=== PATIENT | female | born 1950 | race Caucasian/White ===

== ENCOUNTER → 2016-11-21 | Outpatient (CLI) | payer MEDICARE, MEDICAID ==
[2016-09-05 17:58] VITALS: BP 132/60
[~2016-11-21] MED LIST: ALBU2.5V5 NEB; AMLO10TA2 PO; AMOX1TAB10 PO; ASPI81TA2 PO; ATOR10TA60 PO; CARV6.252 PO; CEFP100T PO; CITA20TA9 PO; CLOP75TA27 PO; DARB60DI SQ; ERGO500012 PO; FAMO20TA5 PO; FERR324T14 PO; FERR325T72 PO; FLUT1DIS3 INH; GUAI600T38 PO; HUM100VI5 SQ; HYDR-2868 PO; HYDR-2869 PO; HYDR25CA75 PO; INSU100I13 SQ; INSU100I17 SQ; INSU100I27 SQ; ISOS30TA4 PO; LISI40TA PO; NYST60PO TP; OXYC1TAB7 PO; PRAS10TA4 PO; PRED20TA PO; SODI650T PO; SPIR25TA PO
--- NOTE | 2016-11-21 15:25 | CARD ---
APPROVED REPORT EXAM: Two-dimensional and M-mode echocardiogram with Doppler and color Doppler. Other Information Quality : Good INDICATION Cardiac Disease: CAD Cardiomyopathy 2D DIMENSIONS Left Atrium(2D)3.6 (1.6-4.0cm)IVSd1.0 (0.7-1.1cm) Aortic Root(2D)2.9 (2.0-3.7cm)LVDd5.9 (3.9-5.9cm) LVOT Diameter2.0 (1.8-2.4cm)PWd1.7 (0.7-1.1cm) LVDs5.1 (2.5-4.0cm)FS (%) 13.8 % SV51.1 mlLVEF(%)25.0 (>50%) Aortic Valve AoV Peak Dylan.190.0cm/sAoV VTI43.0cm AO Peak GR.14.4mmHgLVOT Peak Dylan.86.5cm/s AO Mean GR.8mmHgAVA (VMAX)1.46cm2 ERIKA (VTI)1.72nu4GP P 1/2 [id number] Mitral Valve MV E Wfvfrtlf43.8cm/sMV E Peak Gr.7mmHg MV DECEL [id number] A Iwjsheys024.6cm/s MV E Mean Gr.2mmHgE/A Ratio0.7 Tricuspid Valve TR P. Hnhtmmbg864jb/sRAP MKPGGNZZ7brWu TR Peak Gr.71rcIgTTJD07usWe Pulmonary Vein S1 Rzdzuwhs75.2cm/sD2 Ljoqfcwj46.7cm/s PVa exuavpkl108rqds LEFT VENTRICLE The Left Ventricle is borderline dilated. There is mild to moderate asymmetric posterior left ventric ular hypertrophy. Left ventricle systolic function is moderate to severely impaired. The Ejection Fra ction is 25%. There is global hypokinesis of the left ventricle. Tissue Doppler imaging reveals moder ate left ventricular diastolic dysfunction. RIGHT VENTRICLE The right ventricle is normal size. The right ventricular systolic function is normal. ATRIA The left atrium size is normal. The right atrium size is normal. The interatrial septum is intact wit h no evidence for an atrial septal defect or patent foramen ovale as noted on 2-D or Doppler imaging. AORTIC VALVE The aortic valve is calcified but opens well. Doppler and Color Flow revealed mild aortic regurgitati on. There is no significant aortic valvular stenosis. MITRAL VALVE The mitral valve is thickened but opens well. There is no evidence of mitral valve prolapse. There is no mitral valve stenosis. Doppler and Color-flow revealed mild to moderate mitral regurgitation. TRICUSPID VALVE The tricuspid valve is normal in structure and function. Doppler and Color Flow revealed mild tricusp id regurgitation. There is moderate to severe pulmonary hypertension. The PA pressure was estimated a t 60 mmHg. There is no tricuspid valve stenosis. PULMONIC VALVE The pulmonary valve is normal in structure and function. Doppler and Color Flow revealed mild pulmoni c valvular regurgitation. There is no pulmonic valvular stenosis. GREAT VESSELS The aortic root is normal in size. The ascending aorta is normal in size. The IVC is normal in size a nd collapses <50% with inspiration. PERICARDIAL EFFUSION There is no evidence of significant pericardial effusion. Critical Notification Critical Value: No <Conclusion> Left ventricle systolic function is moderate to severely impaired. The Ejection Fraction is 25%. Mild aortic regurgitation. Mild to moderate mitral regurgitation. Mild tricuspid regurgitation. There is moderate to severe pulmonary hypertension. The PA pressure was estimated at 60 mmHg. There is no evidence of significant pericardial effusion.
== END | disposition home or self-care (01) ==
LOC: ECHO 08:32
PROVIDERS: ATTEND Internal Medicine Cardiovascular Disease
DX: I25.5 Ischemic cardiomyopathy (principal); I25.10 Atherosclerotic heart disease of native coronary artery without angina pectoris; I51.7 Cardiomegaly; I35.1 Nonrheumatic aortic (valve) insufficiency; I34.0 Nonrheumatic mitral (valve) insufficiency; I27.2 Other secondary pulmonary hypertension; I37.1 Nonrheumatic pulmonary valve insufficiency
CPT/HCPCS: 93306

== ENCOUNTER 2016-12-28 06:32 | Inpatient (IN) | payer BC, MEDICAID ==
[~2016-12-28] VITALS: Ht 165.1 cm; Wt 102.6 kg
[2016-12-28] MEDS ORDERED: LIDOCAINE 1% 1 ML SYRINGE. ID PRN (07:00)
[2016-12-28] MEDS ORDERED: ONDANSETRON PF 4 MG/2 ML VIAL. IV PRN ×2 (07:00→10:45)
[2016-12-28] MEDS ORDERED: HYDROMORPHONE 2 MG/ML VIAL. IV PRN (07:00)
[2016-12-28] MEDS ORDERED: MORPHINE SULFATE 2 MG/ML DISP.SYRIN. IV PRN (07:00)
[2016-12-28] MEDS ORDERED: FENTANYL PF 100 MCG/2 ML VIAL. IV PRN ×2 (07:00)
[2016-12-28] MEDS ORDERED: IV RINGERS,LACTATED 1000ML 1,000 ML IV SCH (07:00)
[2016-12-28] MEDS ORDERED: PROCHLORPERAZINE 10 MG/2 ML VIAL. IV PRN (07:00)
[2016-12-28 07:05] LABS: HEMATOCRIT 34.1 % (36.0-47.0); HEMOGLOBIN 11.1 g/dL (12.0-15.5); RED BLOOD COUNT 3.66 x10^6/uL (3.50-5.40); RED CELL DISTRIBUTION WIDTH 13.9 % (11.5-14.5); WHITE BLOOD COUNT 7.3 x10^3/uL (4.0-11.0)
[2016-12-28 07:08] LABS: CALCIUM 8.2 mg/dL (8.5-10.1); CREATININE 3.4 mg/dL (0.6-1.0); GFR 13.6; POTASSIUM 4.6 mmol/L (3.5-5.1)
[2016-12-28 07:11] VITALS: BP 128/79
[2016-12-28] MEDS ORDERED: LIDOCAINE 2%/EPI 1:100,000 20 ML VIAL. ONE (07:12)
[2016-12-28] MEDS ORDERED: PATI8.4P PO (07:20)
[2016-12-28] MEDS ORDERED: INSU100V8 SQ (07:20)
[2016-12-28] MEDS ORDERED: ASPI81TA2 PO (07:20)
[2016-12-28 07:24] LABS: PROTHROMBIN TIME PATIENT 12.5 SEC (11.7-14.0)
--- NOTE | 2016-12-28 07:27 | EKG ---
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
[2016-12-28] MEDS ORDERED: BACITRACIN 50,000 UNIT in IV NORMAL SALINE 250ML 250 ML IRR ONE (07:30)
[2016-12-28] MEDS ORDERED: CEFAZOLIN 2GM PREMIX 50 ML IV ONE ×2 (07:30→21:30)
[2016-12-28] MEDS ORDERED: LIDOCAINE 2% 100 MG/5 ML DISP.SYRIN. ONE (07:43)
[2016-12-28] MEDS ORDERED: PROPOFOL 80 ML IV ONE (07:43)
[2016-12-28] MEDS ORDERED: MIDAZOLAM HCL/PF 2 MG/2 ML VIAL. ONE (07:44)
[2016-12-28] MEDS ORDERED: KETAMINE HCL 500 MG/10 ML VIAL. ONE (07:44)
[2016-12-28] MEDS ORDERED: EPHEDRINE PF IN SALINE 50 MG/5 ML DISP.SYRIN. IV ONE (07:45)
[2016-12-28] MEDS ORDERED: PHENYLEPHRINE in 0.9% NACL PF 1 MG/10 ML DISP.SYRIN. IV ONE (07:45)
--- NOTE | 2016-12-28 08:10 | PDOC ---
MODERATE SEDATION ASSESSMENT RISKS/ALTERNATIVES Risks/Alternatives Risks and alternatives of this type of sedation and procedure discussed with: RISK/ALTERNATIVES: Patient H & P ON CHART H & P H & P on chart and reviewed for co-morbid conditions and appropriate labs. H&P ON CHART: Yes STATUS PREG STATUS ASSESSED: N/A MEDS/ALLERGIES REVIEWED Meds/Allergies Reviewed Medications and Allergies including time and route of recently administered narcotics and sedatives. MEDS/ALLERGIES REVIEWED: Yes ASA RATING ASA RATING: III AIRWAY ASSESSMENT Airway Assessment Airway patency, oral function limitations, presence of caps, crowns, dentures, partials, and ability to extend neck assessed. AIRWAY ASSESSMENT: Yes MALLAMPATI SCORE MALLAMPATI SCORE: III PRE-SEDATION ASSESSMENT PRE-SEDATION ASSESSMENT: Yes ALURA RIVERA MD Dec 28, 2016 08:10
[2016-12-28] MEDS ORDERED: LIDOCAINE 2%/EPI 1:100,000 20 ML VIAL. IJ ONE (08:45)
[2016-12-28 09:20] VITALS: BP 122/47
--- NOTE | 2016-12-28 10:17 | CARD ---
APPROVED REPORT EXAM Implantation automatic implantable cardioverter-defibrillator 4.7 mins Fluoro 47.57mGy [id number] HISTORY The Patient is a 66 year-old female with a history of ischemic cardiomyopathy INDICATIONS Primary prevention of sudden in a patient with ischemic cardiomyopathy and an EF < 35%. 30 mL of 2% lidocaine was infiltrated into the skin and subcutaneous tissues for local anesthesia. A n incision was made over the left infraclavicular fossa and using blunt dissection and cautery a pock et was created. Venous access was obtained in the left subclavian vein and 8 and 6 Nepalese sheaths we re inserted. Subsequently, a Biotronik bipolar active fixation right ventricular lead model Protego SD 65/18, SN [id number] was advanced under fluoroscopic guidance and the tip was positioned in the right ventricular apex. Following this, a Biotronik bipolar active fixation right atrial lead model Solia S 53, SN [id number] was placed in the right atrial appendage under fluoroscopy guidance. The leads were secured in to place and were attached to a Biotronik dual-chamber permanent pacemaker generator model Itrevia 7D R-T DF4, SN [id number]. This was placed in the pocket that was subsequently closed in 3 layers. Hemos tasis was secured. At the end of procedure, the right ventricular lead showed sensing amplitude of 20mV, impedance of 54 5ohms and a threshold of 0.5volts. The right atrial lead showed a sensing amplitude of 2.5 millivolt s, impedance of 413 ohms and a threshold of 0.8 volts. DFT was performed and the patient was successfully defibrillated with a 15 J shock, with one drop out and a shock impedence of 36 ohms. Patient tolerated the procedure well. There were no immediate complications. Sedation was performed by anesthesia service. CONCLUSION Successful insertion of a dual chamber ICD for primary prevention of sudden cardiac in a patien t with ischemic CMP and EF of < 35%.
[2016-12-28] MEDS ORDERED: NO ANTICOAGULANT THERAPY. MC PRN (10:45)
[2016-12-28 11:43] VITALS: BP 140/65
--- NOTE | 2016-12-28 11:54 | RAD ---
Portable chest, 12/28/2016: History: Post pacemaker insertion Comparison is made to a study from 09/01/2016. A left-sided transvenous pacemaker has been inserted with one lead extending into the right ventricle. The tip of the other lead is projected over the superior aspect of the right atrium. The heart size and pulmonary vascularity are within normal limits. No pulmonary infiltrates are seen. There is no evidence of pleural fluid or pneumothorax. IMPRESSION: 1. Interval insertion of a left-sided transvenous pacemaker. 2. No acute cardiopulmonary abnormality is detected.
[2016-12-28] MEDS ORDERED: LISI40TA PO (14:07)
[2016-12-28] MEDS ORDERED: SODI325T PO (14:07)
[2016-12-28 14:45] VITALS: BP 157/73
[2016-12-28] MEDS: SPIRONOLACTONE 25 MG TABLET PO SCH (15:29)
[2016-12-28] MEDS: CITALOPRAM 20 MG TABLET. PO SCH (15:29)
[2016-12-28] MEDS: LISINOPRIL 40 MG TABLET. PO SCH (15:30)
[2016-12-28] MEDS: ASPIRIN CHEWABLE 81 MG TABLET. PO SCH (15:30)
[2016-12-28] MEDS: PRASUGREL 10 MG TABLET. PO SCH (15:30)
[2016-12-28] MEDS: ISOSORBIDE MONONITRATE ER 30 MG TAB.ER.24H PO SCH (15:30)
[2016-12-28] MEDS ORDERED: ALBUTEROL SULFATE 2.5 MG/3 ML NEBU. NEB SCH (16:00)
[2016-12-28] MEDS: CARVEDILOL 6.25 MG TABLET. PO SCH (16:42)
[2016-12-28] MEDS: HYDRALAZINE 25 MG TABLET PO SCH ×2 (16:42→20:53)
[2016-12-28] MEDS: INSULIN ASPART 300 UNITS/3 ML INSULN.PEN SQ SCH (17:00)
[2016-12-28] MEDS ORDERED: ALBUTEROL SULFATE 2.5 MG/3 ML NEBU. NEB PRN (19:00)
[2016-12-28 19:35] VITALS: BP 157/50
[2016-12-28] MEDS: OXYCODONE/APAP 5/325 TABLET. PO PRN (20:50)
[2016-12-28] MEDS ORDERED: INSULIN DETEMIR 300 UNITS/3 ML INSULN.PEN. SQ SCH (21:00)
[2016-12-28] MEDS ORDERED: ATORVASTATIN CALCIUM 10 MG TABLET. PO SCH (21:00)
[2016-12-28] MEDS ORDERED: FAMOTIDINE 20 MG TABLET. PO SCH (21:00)
[2016-12-28 23:40] VITALS: BP 117/57
[2016-12-29 03:36] VITALS: BP 148/58
[2016-12-29] MEDS: OXYCODONE/APAP 5/325 TABLET. PO PRN (05:58)
[2016-12-29 07:00] VITALS: BP 136/63
[2016-12-29] MEDS: INSULIN ASPART 300 UNITS/3 ML INSULN.PEN SQ SCH (08:00)
--- NOTE | 2016-12-29 08:25 | RAD ---
Exam: AP and lateral chest radiograph History: 1 day post pacemaker placement. Comparison: 12/28/2016. Findings: Cardiomediastinal silhouette is within normal limits for size. Bilateral lung jaquez are free of focal infiltrate. No pleural effusion is seen. Dual-lead AICD by left subclavian approach is without significant change. Impression: No acute cardiopulmonary process.
[2016-12-29] MEDS: HYDRALAZINE 25 MG TABLET PO SCH (09:24)
[2016-12-29] MEDS: LISINOPRIL 40 MG TABLET. PO SCH (09:24)
[2016-12-29] MEDS: PRASUGREL 10 MG TABLET. PO SCH (09:25)
[2016-12-29] MEDS: CARVEDILOL 6.25 MG TABLET. PO SCH (09:25)
[2016-12-29] MEDS: ASPIRIN CHEWABLE 81 MG TABLET. PO SCH (09:25)
[2016-12-29] MEDS: CITALOPRAM 20 MG TABLET. PO SCH (09:26)
[2016-12-29] MEDS: SPIRONOLACTONE 25 MG TABLET PO SCH (09:26)
[2016-12-29 09:57] VITALS: BP 136/63
[2016-12-29] MEDS: ISOSORBIDE MONONITRATE ER 30 MG TAB.ER.24H PO SCH (09:57)
[2016-12-29] MEDS ORDERED: LISI40TA PO (10:10)
--- NOTE | 2016-12-29 10:22 | PDOC3 ---
Discharge Summary Visit Information Date of Admission: Dec 28, 2016 Date of Discharge: Dec 29, 2016 Admitting Diagnosis Comment: ischemic cardiomyopathy CAD hypertension hyperlipidemia DM, II PVD with previous left BKA tobacco abuse Final Diagnosis Problems Medical Problems: (1) Ischemic cardiomyopathy Status: Acute CAD hypertension hyperlipidemia DM, II PVD with previous left BKA tobacco abuse Brief Hospital Course Allergies Allergies Coded Allergies Type Severity Reaction Last Updated Verified adhesive Allergy Intermediate ARM SWELLING 12/29/16 Yes diphenhydramine Allergy Intermediate swelling 08/26/15 Yes Vital Signs Vital Signs Date Time Temp Pulse Resp B/P Pulse Ox O2 Delivery O2 Flow Rate FiO2 12/29/16 09:57 69 136/63 12/29/16 08:42 Nasal Cannula 2.0 12/29/16 07:37 94 12/29/16 07:00 97.7 20 97.7 Lab Results Laboratory Tests Test 12/28/16 06:57 12/28/16 10:21 12/28/16 16:24 12/28/16 20:38 White Blood Count 7.3x10^3/uL (4.0-11.0) Red Blood Count 3.66x10^6/uL (3.50-5.40) Hemoglobin 11.1g/dL (12.0-15.5) Hematocrit 34.1% (36.0-47.0) Mean Corpuscular Volume 93fL (79-100) Mean Corpuscular Hemoglobin 30pg (25-35) Mean Corpuscular Hemoglobin Concent 33g/dL (31-37) Red Cell Distribution Width 13.9% (11.5-14.5) Platelet Count 181x10^3/uL (140-400) Prothrombin Time 12.5SEC (11.7-14.0) Prothromb Time International Ratio 1.0 (0.8-1.1) Activated Partial Thromboplast Time 39SEC (24-38) Sodium Level 139mmol/L (136-145) Potassium Level 4.6mmol/L (3.5-5.1) Chloride Level 106mmol/L (98-107) Carbon Dioxide Level 21mmol/L (21-32) Anion Gap 12 (6-14) Blood Urea Nitrogen 85mg/dL (7-20) Creatinine 3.4mg/dL (0.6-1.0) Estimated GFR (Cockcroft-Gault) 13.6 Glucose Level 132mg/dL (70-99) Calcium Level 8.2mg/dL (8.5-10.1) Glucose (Fingerstick) 168mg/dL (70-99) 106mg/dL (70-99) 153mg/dL (70-99) Test 12/29/16 07:29 Glucose (Fingerstick) 89mg/dL (70-99) Laboratory Tests Test 12/28/16 10:21 12/28/16 16:24 12/28/16 20:38 12/29/16 07:29 Glucose (Fingerstick) 168mg/dL (70-99) 106mg/dL (70-99) 153mg/dL (70-99) 89mg/dL (70-99) Brief Hospital Course Ms. Hercules is a 66 old female with previous PCI to the ramus in August 2016. LVEF by echo at that time 25%. Repeat echo 10/2015 demonstrated no improvement in LVEF and ICD implantation for prevention of SCD advised. Patient agreeable and underwent placement of Biotronik dual chamber ICD into the left pectoral region yesterday. Monitored overnight without significant dysrhythmias on telemetry. No evidence of pneumothorax on CXR this a.m. Site with minimal ecchymosis and no erythema or wound separation. Precautions discussed with patient. ICD interrogation without significant findings this a.m. Famotidine and lisinopril decreased to once daily due to Cr CL of < 20 mL/ min. Discharge Information Condition at Discharge: Stable Follow Up: Weeks (one week for wound check; 3 months with ICD interrogation ) Disposition/Orders: D/C to Home Scheduled Albuterol Sulfate (Albuterol Sulfate Neb Soln) 2.5 MG [facility] RTQID Aspirin (Aspirin) 1 TAB PO DAILY (Reported) Atorvastatin Calcium (Atorvastatin Calcium) 10 MG PO QHS Carvedilol (Carvedilol) 6.25 MG PO BIDWMEALS Citalopram Hydrobromide (Celexa) 20 MG PO DAILY (Reported) Ergocalciferol (Vitamin D2) (Vitamin D2) 50,000 UNIT PO WEEKLY (Reported) Famotidine (Famotidine) 20 MG PO QHS Hydralazine Hcl (Hydralazine Hcl) 25 MG PO TID Insulin Aspart (Novolog Flexpen) 5 UNIT SQ TIDWMEALS (Reported) Insulin Glargine,Hum.rec.anlog (Lantus) 30 UNIT SQ HS (Reported) Isosorbide Mononitrate (Isosorbide Mononitrate Er) 60 MG PO DAILY Lisinopril (Lisinopril) 1 TAB PO BID (Reported) Patiromer Calcium Sorbitex (Veltassa) 8.4 GM PO DAILY (Reported) Prasugrel Hcl (Effient) 10 MG PO DAILYWBKFT Sodium Bicarbonate (Sodium Bicarbonate) 10 GR PO BID (Reported) Spironolactone (Aldactone) 25 MG PO DAILY Patient Instructions Patient Instructions Must know & what to expect after device implant: 1. Your surgical dressing should be removed prior to discharge from the hospital, but allow the steri- strips to fall off naturally. 2. Activity restrictions: DO NOT raise arm above shoulder level, lift anything heavier than a gallon of milk, and no push or pull motions such as vacuuming/lawn mowing, no swinging motions (golf), etc for 4 weeks. 3. It is OK to use a cell phone or other electronic devices just be sure you do not store it in a breast pocket on the side where the device was placed. 4. Device will be interrogated prior to your discharge from the hospital and then every 3 months for defibrillators and every 6 months for pacemakers. You may be asked to have your device checked remotely from home as well, but this will depend on your particular physicians preference. 5. You may remove the arm immobilizer the day after device placement. Wear the arm immobilizer/splint at night (during sleep times) for 2 week to prevent unintended arm movement that can cause lead dislodgement. 6. Do not drive for one week as the task of driving may lead to unintended arm motion that may cause lead dislodgement. The seatbelt will also rub against the incision site & cause irritation. 7. It is our recommendation that you utilize Tylenol at home for pain control. You need to call our office if you are having uncontrollable pain at the incision site. 8. Keep your incision clean and dry. It is OK to shower. DO NOT submerge in bath, pool, or hot tub, until cleared by your doctor, as this could lead to increase risk of infection.. It is OK to use regular soap just do not scrub the incision site. Water spray from shower should not directly hit the incision. Be sure to blot dry not rub. 9. Inspect your incision daily. If you notice any increased redness, swelling , or drainage, or if you start running a fever, call the office immediately. The number is [phone]. 10. For women, if you need to protect against irritation from the bra straps, you can place a piece of gauze over the incision site for cushion. Please be sure to tape it loosely to allow air to the site & remove the gauze when you remove the bra. 11. Be sure to carry your device identification information card in your wallet/purse at all times. 12. It is OK to go through security at the airport with your device, but be sure to let the TSA know prior to proceeding as the security settings change depending on varying factors. Please do whatever is requested by security at that time. 13. Some of the newer devices may be MRI compatible but, currently, the use of these devices is not widespread, so you likely will not be able to have an MRI. Please clarify this with your physician. Special instructions for defibrillator patients: If your device recognizes a rhythm that requires treatment with a shock, you will most likely feel the shock. This is usually not a subtle feeling and it is uncomfortable. Please follow these steps if you receive a shock: Call the office if you receive one shock. Go to the emergency room if you receive two consecutive shocks- please have someone drive you & call 911 if nobody is available- DO NOT drive yourself. Call 911 if you receive more than 2 consecutive shocks. If at any time, you feel lightheaded or dizzy/faint, stop what you are doing & lie down immediately. If you are driving, get to the side of the road quickly, turn your car off & call 911 on your cell phone. DO NOT continue to drive as this may cause an accident that seriously injures yourself &/or others. Call the office at [phone] for any questions or concerns. CONRADO THAKUR APRN Dec 29, 2016 10:22
== END 2016-12-29 13:05 | disposition home or self-care (01) | DRG 227 ==
LOC: SURG 06:32 → 2 SOUTH 10:28
PROVIDERS: ADMIT Internal Medicine Cardiovascular Disease; ATTEND Internal Medicine Cardiovascular Disease
PROC: 0JH608Z Insertion of Defibrillator Generator into Chest Subcutaneous Tissue and Fascia, Open Approach (ICD-10-PCS; 2016-12-28)
PROC: 02H63KZ Insertion of Defibrillator Lead into Right Atrium, Percutaneous Approach (ICD-10-PCS; 2016-12-28)
PROC: 02HK3KZ Insertion of Defibrillator Lead into Right Ventricle, Percutaneous Approach (ICD-10-PCS; principal; 2016-12-28 08:00)
DX: I25.5 Ischemic cardiomyopathy (principal); E78.5 Hyperlipidemia, unspecified; I10 Essential (primary) hypertension; E11.51 Type 2 diabetes mellitus with diabetic peripheral angiopathy without gangrene; I25.10 Atherosclerotic heart disease of native coronary artery without angina pectoris; Z72.0 Tobacco use; Z89.512 Acquired absence of left leg below knee; Z98.61 Coronary angioplasty status; Z88.8 Allergy status to other drugs, medicaments and biological substances
CPT/HCPCS: 33249; 36415; 71010; 71020; 80048; 82947; 85027; 85610; 85730; 93005; 93641; 94640; 94760; C1892; C1895; C1898; J0690; J1815; J2250; J2370; J2704; J3490; J7050; J7030

== ENCOUNTER 2017-08-09 04:38 | Emergency (ER) | payer BC, MEDICAID ==
[~2017-08-09] VITALS: Ht 165.1 cm; Wt 104.3 kg
[~2017-08-09 04:38] MED LIST changes: +ASPI-630 PO; -ASPI81TA2 PO; +AZIT250T6 PO; -CLOP75TA27 PO; +CLOP75TA57 PO; -ERGO500012 PO; +ERGO500027 PO; +FURO40TA4 PO; -GUAI600T38 PO; +GUAI600T47 PO; +INSU100V8 SQ; +LEVO100T5 PO; +LEVO50TA PO; +NYST15PO9 TP; +PATI8.4P PO; -PRAS10TA4 PO; +PRAS10TA9 PO; +SODI325T PO
[2017-08-09] MEDS ORDERED: IPRATRPIUM/ALBUTEROL 0.5/2.5MG 3 ML NEBU. ONE (04:52)
[2017-08-09] MEDS ORDERED: IPRATRPIUM/ALBUTEROL 0.5/2.5MG 3 ML NEBU. NEB ONE (05:00)
[2017-08-09 05:14] LABS: BASO # 0.1 x10^3/uL (0.0-0.2); BASO % 1 % (0-3); EOS % 3 % (0-3); HEMATOCRIT 32.7 % (36.0-47.0); HEMOGLOBIN 10.6 g/dL (12.0-15.5); LYMPH # 1.6 x10^3/uL (1.0-4.8); LYMPH % 17 % (24-48); MEAN CORPUSCULAR HEMOGLOBIN 30 pg (25-35); MEAN CORPUSCULAR HGB CONC 32 g/dL (31-37); MEAN CORPUSCULAR VOLUME 94 fL (79-100); MONO % 6 % (0-9); NEUT % 73 % (31-73); PLATELET COUNT 198 x10^3/uL (140-400); RED BLOOD COUNT 3.47 x10^6/uL (3.50-5.40); RED CELL DISTRIBUTION WIDTH 14.5 % (11.5-14.5)
[2017-08-09] MEDS ORDERED: methylPREDNISolone SOD SUCC PF 125 MG/2 ML VIAL. IV ONE (05:15)
[2017-08-09] MEDS ORDERED: IV NORMAL SALINE 1000ML BAG 1,000 ML IV SCH (05:15)
[2017-08-09] MEDS ORDERED: AZIT250T6 PO (05:21)
[2017-08-09] MEDS ORDERED: PRED50TA PO (05:21)
[2017-08-09 05:25] LABS: CALCIUM 8.3 mg/dL (8.5-10.1); CREATININE 3.4 mg/dL (0.6-1.0); GFR 13.6; POTASSIUM 4.8 mmol/L (3.5-5.1)
--- NOTE | 2017-08-09 05:26 | PHYS DOC ---
Past Medical History Past Medical History: CAD, COPD, Diabetes-Type II, Hypertension, TX, Other Additional Past Medical Histor: KIDNEY ISSUES Past Surgical History: Cholecystectomy, , Pacemaker, Other Additional Past Surgical Histo: left BKA, R toe amputation, fempop bypass bilateral legs; defibrillator Alcohol Use: None Drug Use: None Adult General Chief Complaint Chief Complaint: SHORTNESS OF BREATH HPI HPI 67-year-old female with a past medical history of cardiac problems for which a defibrillator was placed as well as a prior TX and COPD. Patient now presents to the emergency department complaining of shortness of breath and wheezing. She is not still a smoker but she was for many years. Patient uses 2 L home O2 is her baseline. Over the last day she's had increasing shortness of breath and wheezing. Patient does have intermittently mildly productive cough but states that it is her typical smoker's cough. No fevers chills sweats or shaking chills. Patient denies orthopnea or right lower extremity edema. She has left lower extremity amputation with a prosthesis. Review of Systems Review of Systems Constitutional: Denies fever or chills [] Eyes: Denies change in visual acuity, redness, or eye pain [] HENT: Denies nasal congestion or sore throat [] Respiratory: Denies cough or shortness of breath [] Cardiovascular: No additional information not addressed in HPI [] GI: Denies abdominal pain, nausea, vomiting, bloody stools or diarrhea [] : Denies dysuria or hematuria [] Musculoskeletal: Denies back pain or joint pain [] Integument: Denies rash or skin lesions [] Neurologic: Denies headache, focal weakness or sensory changes [] Endocrine: Denies polyuria or polydipsia [] All other systems were reviewed and found to be within normal limits, except as documented in this note. Current Medications Current Medications Current Medications Medications (Trade) Dose Ordered Sig/Slick Start Time Stop Time Status Last Admin Dose Admin Albuterol/ Ipratropium (Duoneb) 3 ml 1X ONCE 08/09/17 05:00 08/09/17 05:16 DC 08/09/17 05:08 3 ML Methylprednisolone Sodium Succinate (SOLU-Medrol 125MG VIAL) 125 mg 1X ONCE 08/09/17 05:15 08/09/17 05:16 DC 11/16/17 05:26 125 MG Sodium Chloride 1,000 ml @ 999 mls/hr Q1H1M 08/09/17 05:15 08/10/17 05:14 08/09/17 05:27 999 MLS/HR Allergies Allergies Allergies Coded Allergies Type Severity Reaction Last Updated Verified adhesive Allergy Intermediate ARM SWELLING 12/29/16 Yes diphenhydramine Allergy Intermediate swelling 08/26/15 Yes Physical Exam Physical Exam Obese 67-year-old female alert communicative cooperative and appropriate with mild tachypnea. Bilateral wheezing with no asymmetry. Pulse ox 94% on baseline 2 L home O2. Mucous membranes mildly dry. Regular rate and rhythm without tachycardia. Benign abdomen normal extremities with no edema. Left lower extremity with prosthesis in place Constitutional: Well developed, well nourished, no acute distress, non-toxic appearance. [] HENT: Normocephalic, atraumatic, bilateral external ears normal, oropharynx moist, no oral exudates, nose normal. [] Eyes: PERRLA, EOMI, conjunctiva normal, no discharge. [] Neck: Normal range of motion, no tenderness, supple, no stridor. [] Cardiovascular:Heart rate regular rhythm, no murmur [] Lungs & Thorax: As above Abdomen: Bowel sounds normal, soft, no tenderness, no masses, no pulsatile masses. [] Skin: Warm, dry, no erythema, no rash. [] Back: No tenderness, no CVA tenderness. [] Extremities: No tenderness, no cyanosis, no clubbing, ROM intact, no edema. [] Neurologic: Alert and oriented X 3, normal motor function, normal sensory function, no focal deficits noted. [] Psychologic: Affect normal, judgement normal, mood normal. [] Current Patient Data Vital Signs Vital Signs Date Time Temp Pulse Resp B/P (MAP) Pulse Ox O2 Delivery O2 Flow Rate FiO2 08/09/17 05:10 93 Simple Mask 7.0 08/09/17 04:54 97.5 93 24 219/81 (127) 97.5 Lab Values Laboratory Tests Test 08/09/17 05:00 White Blood Count 9.0 x10^3/uL (4.0-11.0) Red Blood Count 3.47 x10^6/uL (3.50-5.40) L Hemoglobin 10.6 g/dL (12.0-15.5) L Hematocrit 32.7 % (36.0-47.0) L Mean Corpuscular Volume 94 fL (79-100) Mean Corpuscular Hemoglobin 30 pg (25-35) Mean Corpuscular Hemoglobin Concent 32 g/dL (31-37) Red Cell Distribution Width 14.5 % (11.5-14.5) Platelet Count 198 x10^3/uL (140-400) Neutrophils (%) (Auto) 73 % (31-73) Lymphocytes (%) (Auto) 17 % (24-48) L Monocytes (%) (Auto) 6 % (0-9) Eosinophils (%) (Auto) 3 % (0-3) Basophils (%) (Auto) 1 % (0-3) Neutrophils # (Auto) 6.5 x10^3uL (1.8-7.7) Lymphocytes # (Auto) 1.6 x10^3/uL (1.0-4.8) Monocytes # (Auto) 0.5 x10^3/uL (0.0-1.1) Eosinophils # (Auto) 0.3 x10^3/uL (0.0-0.7) Basophils # (Auto) 0.1 x10^3/uL (0.0-0.2) Sodium Level 138 mmol/L (136-145) Potassium Level 4.8 mmol/L (3.5-5.1) Chloride Level 104 mmol/L (98-107) Carbon Dioxide Level 25 mmol/L (21-32) Anion Gap 9 (6-14) Blood Urea Nitrogen 57 mg/dL (7-20) H Creatinine 3.4 mg/dL (0.6-1.0) H Estimated GFR (Cockcroft-Gault) 13.6 Glucose Level 189 mg/dL (70-99) H Calcium Level 8.3 mg/dL (8.5-10.1) L Troponin I Quantitative 0.022 ng/mL (0.000-0.055) Laboratory Tests 08/09/17 05:00 Laboratory Tests 08/09/17 05:00 EKG EKG EKG[ with normal sinus rhythm at 85 bpm normal axis no STEMI. Q waves anterior lateral consistent with prior TX. Nonspecific ST and T-wave findings interpreted by me] Radiology/Procedures Radiology/Procedures Chest x-ray with hyperinflation chronic changes no acute disease[] Course & Med Decision Making Course & Med Decision Making Pertinent Labs and Imaging studies reviewed. (See chart for details) Signs and symptoms consistent with COPD exacerbation in a patient with a long history of COPD and home oxygen use. Patient with sats in the mid 90s on baseline home oxygen. Nebulized therapy administered as well as Medrol. Patient hydrated. Full workup pending to rule out contributory cardiac etiology for this event. Patient with baseline productive cough and without evidence of infectious prodrome. Patient feels improved after nebulized therapy. She is close to her rest for a baseline and satting well on her baseline supplemental oxygen. Workup unremarkable area patient has a chronic anemia which is unchanged as well as significant chronic renal insufficiency, also unchanged from prior results. EKG unremarkable but consistent with patient's prior TX. Troponin negative. Chest x- ray with significant chronic changes and defibrillator in place however unremarkable as out significant change from prior study. On reevaluation at 5: 50 AM, patient continues to feel dramatically improved and that she will be able to follow-up as an outpatient. IV fluids are continuing and patient is aware that she is welcome to another respiratory treatment if she feels this is indicated prior to her discharge. Patient agrees with outpatient follow-up with PCP today with prescriptions for Zithromax and prednisone. She is aware to return immediately for new severe worsening symptoms/strict return precautions given.[] Dragon Disclaimer Dragon Disclaimer This electronic medical record was generated, in whole or in part, using a voice recognition dictation system. Departure Departure Impression: Primary Impression: COPD exacerbation Additional Impression: Acute dyspnea Disposition: 01 HOME, SELF-CARE Referrals: Tristan PENG MD (PCP) Patient Instructions: Chronic Obstructive Pulmonary Disease Exacerbation Additional Instructions: You've been suffering from a COPD exacerbation today. Use bronchodilator therapy as prescribed as needed. Finish Zithromax as prescribed to treat for the possibility of evolving infection as a contributory cause of your symptoms today. Finish prednisone as prescribed once a day for 5 days. Follow-up with your doctor today and return immediately for new severe or worsening symptoms Scripts Prednisone (PREDNISONE) 50 Mg Tablet 1 TAB PO DAILY, #5 TAB Prov: MACHO BESS MD 08/09/17 Azithromycin (AZITHROMYCIN TABLET) 250 Mg Tablet 1 PKG PO UD, #6 TAB Take 2 pills the first day and one pill a day for the following 4 days Prov: MACHO BESS MD 08/09/17 Problem Qualifiers MACHO BESS MD Aug 09, 2017 05:26
[2017-08-09 05:45] VITALS: BP 176/77
[2017-08-09] MEDS ORDERED: AZITHROMYCIN 250 MG TABLET. PO ONE (06:00)
--- NOTE | 2017-08-09 06:27 | EKG ---
[facility] [address] [place] [address] Test Date: 2017-08-09 Test Time: 05:14:35 Pat Name: ANABELLE COFFMAN Department: Room: Gender: F Procedure Rn: : 1950 Requested By: MACHO BESS Order Number: [id number] Reading MD: Grover Solitario MD Measurements Intervals [place] Rate: 85 P: 39 HI: 158 QRS: 4 QRSD: 94 T: 159 QT: 386 QTc: 460 Interpretive Statements SINUS RHYTHM CONSISTENT WITH ANTEROSEPTAL INFARCT PROBABLY OLD Electronically Signed On 08-09-2017 16:14:31 TELEVISION ENGINEER by Grover Solitario MD
--- NOTE | 2017-08-09 07:07 | RAD ---
Chest radiograph 08/09/2017 1 view Clinical indication: Shortness of air Comparison: Chest x-ray 07/20/2017 Findings: Left chest wall cardiac conduction device in similar position. No significant change in cardiomegaly, pulmonary venous congestion and medium bilateral pleural effusions with adjacent atelectasis. No pneumothorax. Impression: Stable examination with cardiomegaly, pulmonary venous congestion and medium bilateral pleural effusions.
== END 2017-08-09 06:12 | disposition home or self-care (01) ==
LOC: ER 04:38
DX: J44.1 Chronic obstructive pulmonary disease with (acute) exacerbation (principal); I10 Essential (primary) hypertension; E11.9 Type 2 diabetes mellitus without complications; I25.10 Atherosclerotic heart disease of native coronary artery without angina pectoris; I25.2 Old myocardial infarction; Z89.512 Acquired absence of left leg below knee; Z95.0 Presence of cardiac pacemaker; Z90.49 Acquired absence of other specified parts of digestive tract; Z88.8 Allergy status to other drugs, medicaments and biological substances
CPT/HCPCS: 36415; 71010; 80048; 84484; 85025; 93005; 94250; 94640; 96361; 96374; 99285; J2930; J7030; J7620; Q0144

== ENCOUNTER → 2017-08-14 | Outpatient (CLI) | payer BC, MEDICAID ==
[2017-08-09 05:45] VITALS: BP 176/77
[~2017-08-14] MED LIST changes: +PRED50TA PO
--- NOTE | 2017-08-14 10:31 | RAD ---
DATE: 08/14/2017. EXAM: DIGITAL SCREEN BILAT W/CAD. HISTORY: Routine mammographic screening. COMPARISON: None available. This is interpreted as a baseline study. This study was interpreted with the benefit of Computerized Aided Detection (CAD). FINDINGS: The breast parenchyma shows scattered fibroglandular densities. Breast parenchyma level B.. There are no suspicious masses, microcalcifications or architectural distortion. Coarse and vascular calcifications are benign. A left pacemaker generator partially obscures the left axilla. BI-RADS CATEGORY: 2 BENIGN FINDING(S). RECOMMENDED FOLLOW-UP: 12M 12 MONTH FOLLOW-UP. PQRS compliance statement: Patient information was entered into a reminder system with a target due date 08/14/2018 for the next mammogram. Mammography is a sensitive method for finding small breast cancers, but it does not detect them all and is not a substitute for careful clinical examination. A negative mammogram does not negate a clinically suspicious finding and should not result in delay in biopsying a clinically suspicious abnormality. "Our facility is accredited by the [employer] Mammography Program."
== END | disposition home or self-care (01) ==
LOC: MAMMO 09:14
PROVIDERS: ATTEND Family Medicine
DX: Z12.31 Encounter for screening mammogram for malignant neoplasm of breast (principal)
CPT/HCPCS: G0202; 77067

== ENCOUNTER 2017-08-21 19:53 | Inpatient (IN) | payer BC, MEDICAID ==
[~2017-08-21] VITALS: Ht 165.1 cm; Wt 112.7 kg
[2017-08-21] MEDS ORDERED: IPRATRPIUM/ALBUTEROL 0.5/2.5MG 3 ML NEBU. NEB ONE (20:15)
--- NOTE | 2017-08-21 20:16 | PHYS DOC ---
Past Medical History Past Medical History: CAD, COPD, Diabetes-Type II, Hypertension, MA, Other Additional Past Medical Histor: KIDNEY ISSUES Past Surgical History: Cholecystectomy, , Pacemaker, Other Additional Past Surgical Histo: left BKA, R toe amputation, fempop bypass bilateral legs; defibrillator Alcohol Use: None Drug Use: None Adult General Chief Complaint Chief Complaint: SHORTNESS OF BREATH HPI HPI Patient is a 67 year old female who presents with complaint shortness of breath. Patient states that her symptoms started worsening over the past 3 hours. Patient has history of congestive heart failure and COPD. Patient has had multiple visits to the emergency department for similar episodes. Patient follows a Dr. Hernandez for primary care. Patient denies any associated fever. Patient states that she started getting significantly short of breath and has been having increased work of breathing over the past 3 hours. Patient denies chest pain. Patient admits that she has been having worsening swelling in her lower extremities over the past 5 days. Patient states that she has been taking her water pills at home with his not feel that this has been helping. Review of Systems Review of Systems Constitutional: Denies fever or chills [] Eyes: Denies change in visual acuity, redness, or eye pain [] HENT: Denies nasal congestion or sore throat [] Respiratory: Shortness of breath[] Cardiovascular: Dyspnea on exertion, lower extremity edema[] GI: Denies abdominal pain, nausea, vomiting, bloody stools or diarrhea [] : Denies dysuria or hematuria [] Musculoskeletal: Denies back pain or joint pain [] Integument: Denies rash or skin lesions [] Neurologic: Denies headache, focal weakness or sensory changes [] All other systems were reviewed and found to be within normal limits, except as documented in this note. Current Medications Current Medications Current Medications Medications (Trade) Dose Ordered Sig/Slick Start Time Stop Time Status Last Admin Dose Admin Albuterol/ Ipratropium (Duoneb) 6 ml 1X ONCE 08/21/17 20:15 08/21/17 20:16 DC 08/21/17 20:22 6 ML Nicardipine HCl 50 mg/Sodium Chloride 270 ml @ 25 mls/hr CONT PRN 08/21/17 20:30 Allergies Allergies Allergies Coded Allergies Type Severity Reaction Last Updated Verified adhesive Allergy Intermediate ARM SWELLING 12/29/16 Yes diphenhydramine Allergy Intermediate swelling 08/26/15 Yes Physical Exam Physical Exam Constitutional: Alert, hypertensive, afebrile, appears in moderate to severe respiratory distress. [] HENT: Normocephalic, atraumatic, bilateral external ears normal, oropharynx moist, no oral exudates, nose normal. [] Eyes: PERRLA, EOMI, conjunctiva normal, no discharge. [] Neck: Normal range of motion, no tenderness, supple, no stridor. [] Cardiovascular: Tachycardia, regular rhythm, no murmur [] Lungs & Thorax: Moderate to severe restriction of air movement bilaterally, accessory muscle usage present, rales bilaterally, expiratory wheezes present[] Abdomen: Bowel sounds normal, soft, no tenderness, no masses, no pulsatile masses. [] Skin: Warm, dry, no erythema, no rash. [] Back: No tenderness, no CVA tenderness. [] Extremities: Left BKA, no cyanosis, no clubbing, ROM intact, 3+ pitting edema in the right lower extremity. [] Neurologic: Alert and oriented X 3, normal motor function, normal sensory function, no focal deficits noted. [] Current Patient Data Vital Signs Vital Signs Date Time Temp Pulse Resp B/P (MAP) Pulse Ox O2 Delivery O2 Flow Rate FiO2 08/21/17 20:25 99 08/21/17 20:10 Room Air 3.0 08/21/17 20:09 99.7 96 28 231/92 (138) 99.7 Lab Values Laboratory Tests Test 08/21/17 20:06 08/21/17 20:18 08/21/17 20:20 Glucose (Fingerstick) 268 mg/dL (70-99) H O2 Saturation 95 % (92-99) Arterial Blood pH 7.35 (7.35-7.45) Arterial Blood pCO2 at Patient Temp 35 mmHg (35-46) Arterial Blood pO2 at Patient Temp 78 mmHg (65-108) Arterial Blood HCO3 19 mmol/L (21-28) L Arterial Blood Base Excess -6 mmol/L (-3-3) L FiO2 32.0 White Blood Count 15.0 x10^3/uL (4.0-11.0) H Red Blood Count 3.25 x10^6/uL (3.50-5.40) L Hemoglobin 10.0 g/dL (12.0-15.5) L Hematocrit 30.8 % (36.0-47.0) L Mean Corpuscular Volume 95 fL (79-100) Mean Corpuscular Hemoglobin 31 pg (25-35) Mean Corpuscular Hemoglobin Concent 33 g/dL (31-37) Red Cell Distribution Width 14.9 % (11.5-14.5) H Platelet Count 181 x10^3/uL (140-400) Neutrophils (%) (Auto) 85 % (31-73) H Lymphocytes (%) (Auto) 7 % (24-48) L Monocytes (%) (Auto) 8 % (0-9) Eosinophils (%) (Auto) 1 % (0-3) Basophils (%) (Auto) 1 % (0-3) Neutrophils # (Auto) 12.7 x10^3uL (1.8-7.7) H Lymphocytes # (Auto) 1.0 x10^3/uL (1.0-4.8) Monocytes # (Auto) 1.2 x10^3/uL (0.0-1.1) H Eosinophils # (Auto) 0.1 x10^3/uL (0.0-0.7) Basophils # (Auto) 0.1 x10^3/uL (0.0-0.2) Segmented Neutrophils % 80 % (35-66) H Lymphocytes % 9 % (24-48) L Monocytes % 9 % (0-10) Eosinophils % 2 % (0-5) Platelet Estimate Adequate (ADEQUATE) Sodium Level 135 mmol/L (136-145) L Potassium Level 3.7 mmol/L (3.5-5.1) Chloride Level 101 mmol/L (98-107) Carbon Dioxide Level 22 mmol/L (21-32) Anion Gap 12 (6-14) Blood Urea Nitrogen 76 mg/dL (7-20) H Creatinine 3.4 mg/dL (0.6-1.0) H Estimated GFR (Cockcroft-Gault) 13.6 BUN/Creatinine Ratio 22 (6-20) H Glucose Level 266 mg/dL (70-99) H Calcium Level 7.9 mg/dL (8.5-10.1) L Magnesium Level 1.8 mg/dL (1.8-2.4) Total Bilirubin 0.5 mg/dL (0.2-1.0) Aspartate Amino Transferase (AST) 22 U/L (15-37) Alanine Aminotransferase (ALT) 30 U/L (14-59) Alkaline Phosphatase 87 U/L (46-116) Creatine Kinase 50 U/L (26-192) Creatine Kinase MB (Mass) 1.3 ng/mL (0.0-3.6) Creatine Kinase MB Relative Index 2.6 % (0-4) Troponin I Quantitative 0.277 ng/mL (0.000-0.055) [id number]-Pti-F-Type Natriuretic Peptide 452272 pg/mL (0-124) H Total Protein 6.6 g/dL (6.4-8.2) Albumin 2.7 g/dL (3.4-5.0) L Albumin/Globulin Ratio 0.7 (1.0-1.7) L Laboratory Tests 08/21/17 20:20 Laboratory Tests 08/21/17 20:20 EKG EKG Interpreted by me: Heart rate 93, sinus rhythm, leftward axis, no acute ST elevations or depressions[] Radiology/Procedures Radiology/Procedures One view AP chest x-ray interpreted by me: Stable left lower lobe pleural effusion, bilateral lower lobe interstitial edema, cardiomegaly[] Course & Med Decision Making Course & Med Decision Making Pertinent Labs and Imaging studies reviewed. (See chart for details) Patient noted to be 84% SPO2 initially upon arrival. Patient appeared to be displaying increased work of breathing and was placed on BiPAP to support respiratory effort. Patient's respiratory effort improved with BiPAP. Patient's chest x-ray shows evidence of interstitial edema consistent with acute on chronic congestive heart failure. At this time the patient's vital signs have stabilized on BiPAP. The patient has continued chronic renal failure with stage V kidney disease. Patient is not currently on dialysis. This may be a consideration as patient has continued to have a GFR of 15 her lower over the past several months. The patient will be admitted for further care. I spoke with Dr. Mandujano who is on-call for Dr. Hernandez and she accepted care of patient in hospital. Consults were placed to Dr. Solitario of cardiology, Dr. Romero of pulmonology, and Dr. Paiz of nephrology to follow with patient in hospital. Critical care time excluding procedures: 50 minutes Dani Disclaimer Dragon Disclaimer This electronic medical record was generated, in whole or in part, using a voice recognition dictation system. Departure Departure Impression: Primary Impression: Acute on chronic respiratory failure Additional Impressions: Acute on chronic congestive heart failure End stage renal disease COPD (chronic obstructive pulmonary disease) Elevated troponin Type 2 diabetes mellitus Severe protein-calorie malnutrition Disposition: ADMITTED INPATIENT Admitting Physician: Bala Hernandez Condition: CRITICAL Referrals: Tristan HERNANDEZ MD (PCP) Problem Qualifiers Primary Impression: Acute on chronic respiratory failure Respiratory failure complication: hypoxia Qualified Codes: J96.21 - Acute and chronic respiratory failure with hypoxia Additional Impressions: Acute on chronic congestive heart failure Congestive heart failure type: unspecified congestive heart failure type Qualified Codes: I50.9 - Heart failure, unspecified COPD (chronic obstructive pulmonary disease) COPD type: unspecified COPD Qualified Codes: J44.9 - Chronic obstructive pulmonary disease, unspecified Type 2 diabetes mellitus Diabetes mellitus complication status: with hyperglycemia Diabetes mellitus intermediate insulin use: unspecified intermediate insulin use status Qualified Codes: E11.65 - Type 2 diabetes mellitus with hyperglycemia MARY GRACE SALMERON MD Aug 21, 2017 20:16
[2017-08-21 20:36] LABS: BASO # 0.1 x10^3/uL (0.0-0.2); BASO % 1 % (0-3); EOS % 1 % (0-3); HEMATOCRIT 30.8 % (36.0-47.0); LYMPH % 7 % (24-48); MEAN CORPUSCULAR HEMOGLOBIN 31 pg (25-35); MEAN CORPUSCULAR HGB CONC 33 g/dL (31-37); MEAN CORPUSCULAR VOLUME 95 fL (79-100); MONO % 8 % (0-9); NEUT % 85 % (31-73); PLATELET COUNT 181 x10^3/uL (140-400); RED BLOOD COUNT 3.25 x10^6/uL (3.50-5.40); RED CELL DISTRIBUTION WIDTH 14.9 % (11.5-14.5)
[2017-08-21 20:44] LABS: HCO3 ABG 19 mmol/L (21-28); PCO2 ABG 35 mmHg (35-46); PH ABG 7.35 (7.35-7.45); PO2 ABG 78 mmHg (65-108); SAT O2 ABG 95 % (92-99)
[2017-08-21 20:44] LABS: CALCIUM 7.9 mg/dL (8.5-10.1); CREATININE 3.4 mg/dL (0.6-1.0); GFR 13.6; POTASSIUM 3.7 mmol/L (3.5-5.1)
[2017-08-21 20:50] LABS: ALBUMIN 2.7 g/dL (3.4-5.0); ALBUMIN/GLOBULIN RATIO 0.7 (1.0-1.7); MAGNESIUM 1.8 mg/dL (1.8-2.4); TOTAL BILIRUBIN 0.5 mg/dL (0.2-1.0); TOTAL PROTEIN 6.6 g/dL (6.4-8.2)
[2017-08-21 21:11] LABS: CKMB MASS 1.3 ng/mL (0.0-3.6)
[2017-08-21 21:35] LABS: % EOS 2 % (0-5); PLT ESTIMATE ADEQUATE (ADEQUATE)
[2017-08-21 22:45] VITALS: BP 173/72
[2017-08-21 23:00] VITALS: BP 154/69
[2017-08-21] MEDS ORDERED: LISI40TA PO (23:00)
[2017-08-21] MEDS ORDERED: PRAS10TA9 PO (23:01)
[2017-08-21] MEDS ORDERED: FAMO20TA5 PO (23:02)
[2017-08-21] MEDS ORDERED: INSU100I13 SQ (23:07)
[2017-08-21] MEDS ORDERED: LEVO150T5 PO (23:08)
[2017-08-21] MEDS ORDERED: IV NORMAL SALINE 1000ML BAG 1,000 ML IV SCH (23:49)
[2017-08-22] MEDS ORDERED: ONDANSETRON PF 4 MG/2 ML VIAL. IV PRN
[2017-08-22] MEDS ORDERED: ACETAMINOPHEN 325 MG TABLET. PO PRN
[2017-08-22 03:25] VITALS: BP 163/70
--- NOTE | 2017-08-22 06:15 | EKG ---
[facility] [address] [place] [address] Test Date: 2017-08-21 Test Time: 20:02:31 Pat Name: ANABELLE COFFMAN Department: Room: 210 1 Gender: F [employer]: : 1950 Requested By: MARY GRACE SALMERON Order Number: [id number] Reading MD: Jr Abbasi Measurements Intervals [place] Rate: 93 P: 17 LA: 134 QRS: -12 QRSD: 100 T: 145 QT: 364 QTc: 455 Interpretive Statements SINUS RHYTHM LEFT ATRIAL ABNORMALITY LEFTWARD AXIS QRS(T) CONTOUR ABNORMALITY CONSISTENT WITH ANTEROSEPTAL INFARCT PROBABLY OLD ABNORMAL ECG Electronically Signed On 08-27-2017 14:42:43 PATHOLOGY LAB TECHNICIAN by Jr Abbasi
[2017-08-22 07:10] LABS: BASO # 0.1 x10^3/uL (0.0-0.2); BASO % 0 % (0-3); EOS % 1 % (0-3); HEMATOCRIT 28.5 % (36.0-47.0); HEMOGLOBIN 9.1 g/dL (12.0-15.5); LYMPH # 1.3 x10^3/uL (1.0-4.8); LYMPH % 10 % (24-48); MEAN CORPUSCULAR HEMOGLOBIN 30 pg (25-35); MEAN CORPUSCULAR HGB CONC 32 g/dL (31-37); MEAN CORPUSCULAR VOLUME 95 fL (79-100); MONO % 9 % (0-9); NEUT % 80 % (31-73); PLATELET COUNT 130 x10^3/uL (140-400); RED CELL DISTRIBUTION WIDTH 15.1 % (11.5-14.5); WHITE BLOOD COUNT 12.6 x10^3/uL (4.0-11.0)
[2017-08-22 07:40] VITALS: BP 156/70
[2017-08-22] MEDS ORDERED: IPRATRPIUM/ALBUTEROL 0.5/2.5MG 3 ML NEBU. NEB SCH (08:00)
--- NOTE | 2017-08-22 08:18 | RAD ---
Portable chest, 08/21/2017: History: Dyspnea Comparison is made to a study from 08/09/2017. A left-sided transvenous pacemaker remains in place with 2 leads extending into the right heart. The heart is mildly enlarged. The pulmonary vascularity remains mildly prominent. Right basilar opacities have largely cleared. There is a persistent density in the left base obscuring the left lateral costophrenic angle suggesting pleural fluid and atelectasis. No new abnormality is seen. IMPRESSION: 1. Mild cardiomegaly with mild ongoing or recurrent vascular congestion. 2. Partial clearing of the lung bases since 08/09/2017, with mild residual pleural fluid and atelectasis/infiltrate left base.
[2017-08-22 08:19] LABS: CREATININE 3.4 mg/dL (0.6-1.0); GFR 13.6; POTASSIUM 3.4 mmol/L (3.5-5.1)
--- NOTE | 2017-08-22 08:36 | PDOC1 ---
History and Physical Date of Admission Date of Admission DATE: 08/21/17 Identification/Chief Complaint Chief Complaint Shortness of air Problems: Source Source: Patient History of Present Illness History of Present Illness Pt states that she had increased shortness of air and swelling in her right leg for the past couple of days prior to admission. Pt had become so fatigued she could barely move from her chair. Since admission her breathing has improved, although her leg is still swollen. Pt believes event may have been incited by eating ham for Thanksgiving. Past Medical History Cardiovascular: CAD, CHF, HTN, CA, Hyperlipidemia Pulmonary: Asthma, COPD GI: GERD Heme/Onc: Anemia NOS Hepatobiliary: No pertinent hx Psych: Depression Rheumatologic: No pertinent hx Infectious disease: No pertinent hx ENT: No pertinent hx Renal/: Chronic renal insuff Endocrine: Diabetes, Hypothyroidism Dermatology: No pertinent hx Past Surgical History Past Surgical History: Cholecystectomy, , Other (left BKA revision x2 , right and left fem/pop, AICD) Family History Family History: Cancer, Chronic Bronchitis, Diabetes, Hypertension Social History Smoke: <1 pack per day ALCOHOL: none Drugs: None Current Problem List Problem List Problems Medical Problems: (1) Acute on chronic congestive heart failure Status: Acute (2) Acute on chronic respiratory failure Status: Acute (3) COPD (chronic obstructive pulmonary disease) Status: Acute (4) Elevated troponin Status: Acute (5) End stage renal disease Status: Acute (6) Severe protein-calorie malnutrition Status: Acute (7) Type 2 diabetes mellitus Status: Acute Problems: Current Medications Current Medications Current Medications Albuterol/ Ipratropium (Duoneb) 6 ml 1X ONCE NEB Last administered on 20:22; Start 08/21/17 at 20:15; Stop 08/21/17 at 20:16; Status DC Nicardipine HCl 50 mg/Sodium Chloride 270 ml @ 25 mls/hr CONT PRN IV SEE I/O RECORD Last administered on 08/21/17 22:12; Start 08/21/17 at 20:30 Ondansetron HCl (Zofran) 4 mg PRN Q8HRS PRN IV NAUSEA/VOMITING; Start at 00:00; Stop 08/22/17 at 23:59 Sodium Chloride 1,000 ml @ 0 mls/hr Q0M IV ; Start 08/21/17 at 23:49; Stop at 23:48 Acetaminophen (Tylenol) 650 mg PRN Q4HRS PRN PO FEVER; Start 08/22/17 at 00:00 ; Stop 08/22/17 at 23:59 Albuterol/ Ipratropium (Duoneb) 3 ml RTQID NEB Last administered on 08/22/17t 07:18; Start 08/22/17 at 08:00; Stop 08/23/17 at 07:59 Active Scripts Active Furosemide 40 Mg Tablet 40 Mg PO DAILY 30 Days Aldactone (Spironolactone) 25 Mg Tablet 25 Mg PO DAILY Isosorbide Mononitrate Er (Isosorbide Mononitrate) 30 Mg Tab.er.24h 60 Mg PO DAILY Hydralazine Hcl 25 Mg Tablet 25 Mg PO TID Carvedilol 6.25 Mg Tablet 6.25 Mg PO BIDWMEALS Atorvastatin Calcium 10 Mg Tablet 10 Mg PO QHS Albuterol Sulfate Neb Soln (Albuterol Sulfate) 2.5 Mg/3 Ml Vial.neb 2.5 Mg NEB RTQID Reported Levothyroxine Sodium 150 Mcg Tablet 150 Mcg PO DAILYAC Lantus Solostar (Insulin Glargine,Hum.rec.anlog) 100 Unit/1 Ml Insuln.pen 3 Unit SQ HS Famotidine 20 Mg Tablet 20 Mg PO BID Effient (Prasugrel Hcl) 10 Mg Tablet 10 Mg PO DAILY Lisinopril 40 Mg Tablet 40 Mg PO BID Sodium Bicarbonate 325 Mg Tablet 10 Gr PO BID Aspirin 81 Mg Tab.chew 1 Tab PO DAILY Novolog Flexpen (Insulin Aspart) 100 Unit/1 Ml Insuln.pen 5 Unit SQ TIDWMEALS Celexa (Citalopram Hydrobromide) 20 Mg Tablet 20 Mg PO DAILY Vitamin D2 (Ergocalciferol (Vitamin D2)) 50,000 Unit Capsule 50,000 Unit PO WEEKLY Allergies Allergies: Coded Allergies: adhesive (Verified Allergy, Intermediate, ARM SWELLING, 12/29/16) arm swelling when nicotinE patch applied diphenhydramine (Verified Allergy, Intermediate, swelling, 08/26/15) ROS General: No: Chills, Night Sweats PSYCHOLOGICAL ROS: No: Anxiety, Depression Eyes: No Decreased vision, No Eye Pain HEENT: No: Nasal congestion, Sore Throat ALLERGY AND IMMUNOLOGY: YES: Post Nasal Drip, No: Hives Hematological and Lymphatic: No: Blood Clots, Brusing Respiratory: YES: Cough, Shortness of breath, Sputum Changes Cardiovascular: yes Edema, No Chest Pain, No Palpitations Gastrointestinal: Yes Diarrhea, No Nausea, No Vomiting, No Abdominal Pain, No Constipation Genitourinary: No Dysuria, No Urgency Musculoskeletal: No Joint Pain, No Muscle Pain Neurological: Yes Weakness, No Impaired Coord/balance, No Numbness/Tingling Skin: No Rash, No Skin Lesion Changes Physical Exam General: Alert, Oriented X3, Cooperative, No acute distress HEENT: Atraumatic, PERRLA, EOMI, Mucous membr. moist/pink Lungs: Other (rhonchi heard best RLL) Heart: RRR, no rubs, no gallops, no murmurs Abdomen: Normal bowel sounds, Soft, No tenderness, No hepatosplenomegaly Extremities: No clubbing, No cyanosis, Other (2+ pitting edema RLE, left BKA) Skin: No rashes, No significant lesion Neuro: Normal tone, Sensation intact, Cranial nerves 3-12 NL Psych/Mental Status: Mental status NL, Mood NL Vitals Vitals Vital Signs Date Time Temp Pulse Resp B/P (MAP) Pulse Ox O2 Delivery O2 Flow Rate FiO2 08/22/17 07:53 Nasal Cannula 3.0 08/22/17 07:40 98.0 75 20 156/70 (98) 95 98.0 Labs Labs Laboratory Tests Test 08/21/17 20:06 08/21/17 20:18 08/21/17 20:20 08/22/17 02:00 Glucose (Fingerstick) 268 mg/dL (70-99) O2 Saturation 95 % (92-99) Arterial Blood pH 7.35 (7.35-7.45) Arterial Blood pCO2 at Patient Temp 35 mmHg (35-46) Arterial Blood pO2 at Patient Temp 78 mmHg (65-108) Arterial Blood HCO3 19 mmol/L (21-28) Arterial Blood Base Excess -6 mmol/L (-3-3) FiO2 32.0 White Blood Count 15.0 x10^3/uL (4.0-11.0) Red Blood Count 3.25 x10^6/uL (3.50-5.40) Hemoglobin 10.0 g/dL (12.0-15.5) Hematocrit 30.8 % (36.0-47.0) Mean Corpuscular Volume 95 fL (79-100) Mean Corpuscular Hemoglobin 31 pg (25-35) Mean Corpuscular Hemoglobin Concent 33 g/dL (31-37) Red Cell Distribution Width 14.9 % (11.5-14.5) Platelet Count 181 x10^3/uL (140-400) Neutrophils (%) (Auto) 85 % (31-73) Lymphocytes (%) (Auto) 7 % (24-48) Monocytes (%) (Auto) 8 % (0-9) Eosinophils (%) (Auto) 1 % (0-3) Basophils (%) (Auto) 1 % (0-3) Neutrophils # (Auto) 12.7 x10^3uL (1.8-7.7) Lymphocytes # (Auto) 1.0 x10^3/uL (1.0-4.8) Monocytes # (Auto) 1.2 x10^3/uL (0.0-1.1) Eosinophils # (Auto) 0.1 x10^3/uL (0.0-0.7) Basophils # (Auto) 0.1 x10^3/uL (0.0-0.2) Segmented Neutrophils % 80 % (35-66) Lymphocytes % 9 % (24-48) Monocytes % 9 % (0-10) Eosinophils % 2 % (0-5) Platelet Estimate Adequate (ADEQUATE) Sodium Level 135 mmol/L (136-145) Potassium Level 3.7 mmol/L (3.5-5.1) Chloride Level 101 mmol/L (98-107) Carbon Dioxide Level 22 mmol/L (21-32) Anion Gap 12 (6-14) Blood Urea Nitrogen 76 mg/dL (7-20) Creatinine 3.4 mg/dL (0.6-1.0) Estimated GFR (Cockcroft-Gault) 13.6 BUN/Creatinine Ratio 22 (6-20) Glucose Level 266 mg/dL (70-99) Calcium Level 7.9 mg/dL (8.5-10.1) Magnesium Level 1.8 mg/dL (1.8-2.4) Total Bilirubin 0.5 mg/dL (0.2-1.0) Aspartate Amino Transf (AST/SGOT) 22 U/L (15-37) Alanine Aminotransferase (ALT/SGPT) 30 U/L (14-59) Alkaline Phosphatase 87 U/L (46-116) Creatine Kinase 50 U/L (26-192) Creatine Kinase MB (Mass) 1.3 ng/mL (0.0-3.6) Creatine Kinase MB Relative Index 2.6 % (0-4) Troponin I Quantitative 0.277 ng/mL (0.000-0.055) 0.341 ng/mL (0.000-0.055) VY-Nrf-L-Type Natriuretic Peptide 477641 pg/mL (0-124) Total Protein 6.6 g/dL (6.4-8.2) Albumin 2.7 g/dL (3.4-5.0) Albumin/Globulin Ratio 0.7 (1.0-1.7) Test 08/22/17 05:15 White Blood Count 12.6 x10^3/uL (4.0-11.0) Red Blood Count 3.00 x10^6/uL (3.50-5.40) Hemoglobin 9.1 g/dL (12.0-15.5) Hematocrit 28.5 % (36.0-47.0) Mean Corpuscular Volume 95 fL (79-100) Mean Corpuscular Hemoglobin 30 pg (25-35) Mean Corpuscular Hemoglobin Concent 32 g/dL (31-37) Red Cell Distribution Width 15.1 % (11.5-14.5) Platelet Count 130 x10^3/uL (140-400) Neutrophils (%) (Auto) 80 % (31-73) Lymphocytes (%) (Auto) 10 % (24-48) Monocytes (%) (Auto) 9 % (0-9) Eosinophils (%) (Auto) 1 % (0-3) Basophils (%) (Auto) 0 % (0-3) Neutrophils # (Auto) 10.1 x10^3uL (1.8-7.7) Lymphocytes # (Auto) 1.3 x10^3/uL (1.0-4.8) Monocytes # (Auto) 1.1 x10^3/uL (0.0-1.1) Eosinophils # (Auto) 0.1 x10^3/uL (0.0-0.7) Basophils # (Auto) 0.1 x10^3/uL (0.0-0.2) Sodium Level 139 mmol/L (136-145) Potassium Level 3.4 mmol/L (3.5-5.1) Chloride Level 106 mmol/L (98-107) Carbon Dioxide Level 21 mmol/L (21-32) Anion Gap 12 (6-14) Blood Urea Nitrogen 73 mg/dL (7-20) Creatinine 3.4 mg/dL (0.6-1.0) Estimated GFR (Cockcroft-Gault) 13.6 Glucose Level 190 mg/dL (70-99) Calcium Level 8.0 mg/dL (8.5-10.1) Troponin I Quantitative 0.351 ng/mL (0.000-0.055) Laboratory Tests Test 08/21/17 20:06 08/21/17 20:18 08/21/17 20:20 08/22/17 02:00 Glucose (Fingerstick) 268 mg/dL (70-99) O2 Saturation 95 % (92-99) Arterial Blood pH 7.35 (7.35-7.45) Arterial Blood pCO2 at Patient Temp 35 mmHg (35-46) Arterial Blood pO2 at Patient Temp 78 mmHg (65-108) Arterial Blood HCO3 19 mmol/L (21-28) Arterial Blood Base Excess -6 mmol/L (-3-3) FiO2 32.0 White Blood Count 15.0 x10^3/uL (4.0-11.0) Red Blood Count 3.25 x10^6/uL (3.50-5.40) Hemoglobin 10.0 g/dL (12.0-15.5) Hematocrit 30.8 % (36.0-47.0) Mean Corpuscular Volume 95 fL (79-100) Mean Corpuscular Hemoglobin 31 pg (25-35) Mean Corpuscular Hemoglobin Concent 33 g/dL (31-37) Red Cell Distribution Width 14.9 % (11.5-14.5) Platelet Count 181 x10^3/uL (140-400) Neutrophils (%) (Auto) 85 % (31-73) Lymphocytes (%) (Auto) 7 % (24-48) Monocytes (%) (Auto) 8 % (0-9) Eosinophils (%) (Auto) 1 % (0-3) Basophils (%) (Auto) 1 % (0-3) Neutrophils # (Auto) 12.7 x10^3uL (1.8-7.7) Lymphocytes # (Auto) 1.0 x10^3/uL (1.0-4.8) Monocytes # (Auto) 1.2 x10^3/uL (0.0-1.1) Eosinophils # (Auto) 0.1 x10^3/uL (0.0-0.7) Basophils # (Auto) 0.1 x10^3/uL (0.0-0.2) Segmented Neutrophils % 80 % (35-66) Lymphocytes % 9 % (24-48) Monocytes % 9 % (0-10) Eosinophils % 2 % (0-5) Platelet Estimate Adequate (ADEQUATE) Sodium Level 135 mmol/L (136-145) Potassium Level 3.7 mmol/L (3.5-5.1) Chloride Level 101 mmol/L (98-107) Carbon Dioxide Level 22 mmol/L (21-32) Anion Gap 12 (6-14) Blood Urea Nitrogen 76 mg/dL (7-20) Creatinine 3.4 mg/dL (0.6-1.0) Estimated GFR (Cockcroft-Gault) 13.6 BUN/Creatinine Ratio 22 (6-20) Glucose Level 266 mg/dL (70-99) Calcium Level 7.9 mg/dL (8.5-10.1) Magnesium Level 1.8 mg/dL (1.8-2.4) Total Bilirubin 0.5 mg/dL (0.2-1.0) Aspartate Amino Transf (AST/SGOT) 22 U/L (15-37) Alanine Aminotransferase (ALT/SGPT) 30 U/L (14-59) Alkaline Phosphatase 87 U/L (46-116) Creatine Kinase 50 U/L (26-192) Creatine Kinase MB (Mass) 1.3 ng/mL (0.0-3.6) Creatine Kinase MB Relative Index 2.6 % (0-4) Troponin I Quantitative 0.277 ng/mL (0.000-0.055) 0.341 ng/mL (0.000-0.055) SX-Ogi-I-Type Natriuretic Peptide [id number] pg/mL (0-124) Total Protein 6.6 g/dL (6.4-8.2) Albumin 2.7 g/dL (3.4-5.0) Albumin/Globulin Ratio 0.7 (1.0-1.7) Test 08/22/17 05:15 White Blood Count 12.6 x10^3/uL (4.0-11.0) Red Blood Count 3.00 x10^6/uL (3.50-5.40) Hemoglobin 9.1 g/dL (12.0-15.5) Hematocrit 28.5 % (36.0-47.0) Mean Corpuscular Volume 95 fL (79-100) Mean Corpuscular Hemoglobin 30 pg (25-35) Mean Corpuscular Hemoglobin Concent 32 g/dL (31-37) Red Cell Distribution Width 15.1 % (11.5-14.5) Platelet Count 130 x10^3/uL (140-400) Neutrophils (%) (Auto) 80 % (31-73) Lymphocytes (%) (Auto) 10 % (24-48) Monocytes (%) (Auto) 9 % (0-9) Eosinophils (%) (Auto) 1 % (0-3) Basophils (%) (Auto) 0 % (0-3) Neutrophils # (Auto) 10.1 x10^3uL (1.8-7.7) Lymphocytes # (Auto) 1.3 x10^3/uL (1.0-4.8) Monocytes # (Auto) 1.1 x10^3/uL (0.0-1.1) Eosinophils # (Auto) 0.1 x10^3/uL (0.0-0.7) Basophils # (Auto) 0.1 x10^3/uL (0.0-0.2) Sodium Level 139 mmol/L (136-145) Potassium Level 3.4 mmol/L (3.5-5.1) Chloride Level 106 mmol/L (98-107) Carbon Dioxide Level 21 mmol/L (21-32) Anion Gap 12 (6-14) Blood Urea Nitrogen 73 mg/dL (7-20) Creatinine 3.4 mg/dL (0.6-1.0) Estimated GFR (Cockcroft-Gault) 13.6 Glucose Level 190 mg/dL (70-99) Calcium Level 8.0 mg/dL (8.5-10.1) Troponin I Quantitative 0.351 ng/mL (0.000-0.055) VTE Prophylaxis Ordered VTE Prophylaxis Devices: No VTE Pharmacological Prophylaxi: Yes Assessment/Plan Assessment/Plan Pt is a 67yo CF admitted for acute on chronic respiratory failure 2/2 CHF exacerbation 1)Acute on chronic respiratory failure 2)CHF Exacerbation- pt's breathing has improved after IV diuretics in ER. Will continue Lasix 40mg IV. Cardiology following 3)HTN- moderately controlled, pt was put on Nicardipine gtt last night. Will continue pt's Imdur 60mg ER, Norvasc 10mg, Hydralazine 25mg TID< Lisinopril 40mg , Carvedilol 6.25mg BID, Spironolactone 25mg 4)GERD- pt continued on Famotidine 5)CKD- Stage 4, Cr stable from previous admissions. Renal following, continue NaHCO3 6)DM2- previously well controlled. Fasting BS this morning elevated. Pt's Lantus was DC'd during her last visit because of hypoglycemia. Will continue Novolog 5 units QAC and start SSI 7)COPD- pt continued on Albuterol as needed 8)HLD- pt continued on Atorvastatin 10mg 9)Hypothyroidism- moderately controlled. TSH 07/10 was mildly elevated. Continue Levothyroxine 150mcg 10)PEM- mild 11)Elevated troponin- mildly elevated troponin. Pt without chest pain. Possibly due to CHF exacerbation and CKD, but will repeat troponin at 11am NELI AMOR MD Aug 22, 2017 08:36
[2017-08-22] MEDS ORDERED: DEXTROSE 50% 25 GM / 50ML DISP.SYRIN. IV PRN (08:45)
[2017-08-22] MEDS ORDERED: FUROSEMIDE 40 MG TABLET. PO SCH (09:00)
[2017-08-22] MEDS ORDERED: FUROSEMIDE 40 MG/4 ML VIAL. IVP SCH (09:00)
[2017-08-22] MEDS: ALBUTEROL SULFATE 2.5 MG/3 ML NEBU. NEB SCH ×4 (09:00→19:42)
[2017-08-22] MEDS: SODIUM BICARBONATE 650 MG TABLET. PO SCH ×2 (09:01→21:09)
[2017-08-22] MEDS: ISOSORBIDE MONONITRATE ER 30 MG TAB.ER.24H PO SCH (09:02)
[2017-08-22] MEDS: CITALOPRAM 20 MG TABLET. PO SCH (09:03)
[2017-08-22] MEDS: FAMOTIDINE 20 MG TABLET. PO SCH (09:03)
[2017-08-22] MEDS: SPIRONOLACTONE 25 MG TABLET PO SCH (09:03)
[2017-08-22] MEDS: CARVEDILOL 6.25 MG TABLET. PO SCH ×2 (09:04→17:17)
[2017-08-22] MEDS: PRASUGREL 10 MG TABLET. PO SCH (09:05)
[2017-08-22] MEDS: hydrALAZINE 25 MG TABLET PO SCH ×3 (09:05→21:09)
[2017-08-22] MEDS: LISINOPRIL 40 MG TABLET. PO SCH ×2 (09:07→21:09)
[2017-08-22] MEDS: ASPIRIN CHEWABLE 81 MG TABLET. PO SCH (09:07)
[2017-08-22 10:35] VITALS: BP 133/64
--- NOTE | 2017-08-22 11:27 | PDOC2 ---
CONSULT Date of Consult Date of Consult DATE: 08/22/17 TIME: 11:23 Reason for Consult Reason for Consult: RENAL FAILURE Referring Physician Referring Physician: Identification/Chief Complaint Chief Complaint SOB Problems: Source Source: Chart review, Patient History of Present Illness Reason for Visit: THIS IS A 67 YR OLD ADMITTED WITH SOB AND LE EDEMA AND WEAKNESS. SHE IS NOTED TO BE IN CHF. HX NOTABLE FOR THIS WELL CKD STAGE 4. OP LABS HAVE SHOWN A CR OF ABOUT 3.0 ON AVG. SHE HAS CKD DUE TO DM II AND HTN. SHE IS ALSO ANEMIC. CARDIOLOGY EVAL ONGOING AT THIS TIME. NO HX OF ANY KIDNEY OR BLADDER SURGERIES HEMATURIA DYSURIA OR FREQUENCY NOTED. SHE DOES HAVE NOCTURIA AT LEAST TWICE. NO NSAID ABUSE HX Past Medical History Cardiovascular: CAD, CHF, HTN, [place], Hyperlipidemia Pulmonary: Asthma, COPD GI: GERD Heme/Onc: Anemia NOS Hepatobiliary: No pertinent hx Psych: Depression Rheumatologic: No pertinent hx Infectious disease: No pertinent hx ENT: No pertinent hx Renal/: Chronic renal insuff Endocrine: Diabetes, Hypothyroidism Dermatology: No pertinent hx Past Surgical History Past Surgical History: Cholecystectomy, , Other (left BKA revision x2 , right and left fem/pop, AICD) Family History Family History: Cancer, Chronic Bronchitis, Diabetes, Hypertension Social History <1 pack per day ALCOHOL: none Drugs: None Lives: with Family Current Problem List Problem List Problems Medical Problems: (1) Acute on chronic congestive heart failure Status: Acute (2) Acute on chronic respiratory failure Status: Acute (3) COPD (chronic obstructive pulmonary disease) Status: Acute (4) Elevated troponin Status: Acute (5) End stage renal disease Status: Acute (6) Severe protein-calorie malnutrition Status: Acute (7) Type 2 diabetes mellitus Status: Acute Current Medications Current Medications Current Medications Albuterol/ Ipratropium (Duoneb) 6 ml 1X ONCE NEB Last administered on 20:22; Start 08/21/17 at 20:15; Stop 08/21/17 at 20:16; Status DC Nicardipine HCl 50 mg/Sodium Chloride 270 ml @ 25 mls/hr CONT PRN IV SEE I/O RECORD Last administered on 08/21/17 22:12; Start 08/21/17 at 20:30 Ondansetron HCl (Zofran) 4 mg PRN Q8HRS PRN IV NAUSEA/VOMITING; Start at 00:00; Stop 08/22/17 at 23:59 Sodium Chloride 1,000 ml @ 0 mls/hr Q0M IV ; Start 08/21/17 at 23:49; Stop at 23:48 Acetaminophen (Tylenol) 650 mg PRN Q4HRS PRN PO FEVER; Start 08/22/17 at 00:00 ; Stop 08/22/17 at 23:59 Albuterol/ Ipratropium (Duoneb) 3 ml RTQID NEB Last administered on 08/22/17 07:18; Start 08/22/17 at 08:00; Stop 08/22/17 at 09:06; Status DC Albuterol Sulfate (Ventolin Neb Soln) 2.5 mg RTQID NEB ; Start 08/22/17 at 09: 00 Aspirin (Children'S Aspirin) 81 mg DAILY PO Last administered on 08/22/17 09: 07; Start 08/22/17 at 09:00 Atorvastatin Calcium (Lipitor) 10 mg QHS PO ; Start 08/22/17 at 21:00 Carvedilol (Coreg) 6.25 mg BIDWMEALS PO Last administered on 08/22/17 09:04; Start 08/22/17 at 09:00 Citalopram Hydrobromide (CeleXA) 20 mg DAILY PO Last administered on 09:03; Start 08/22/17 at 09:00 Ergocalciferol (Vitamin D2) 50,000 unit Th PO ; Start 08/22/17 at 10:00 Famotidine (Pepcid) 20 mg DAILY PO Last administered on 08/22/17 09:03; Start 08/22/17 at 09:00 Furosemide (Lasix) 40 mg DAILY PO ; Start 08/22/17 at 09:00; Stop 08/22/17 at 09:00; Status DC Hydralazine HCl (Apresoline) 25 mg TID PO Last administered on 08/22/17 09:05 ; Start 08/22/17 at 09:00 Insulin Aspart (NovoLOG) 5 units TIDWMEALS SQ ; Start 08/22/17 at 12:00 Isosorbide Mononitrate (Imdur) 60 mg DAILY PO Last administered on 08/22/17 09:02; Start 08/22/17 at 09:00 Levothyroxine Sodium (Synthroid) 150 mcg DAILY07 PO ; Start 08/22/17 at 10:30 Lisinopril (Prinivil) 40 mg BID PO Last administered on 08/22/17 09:07; Start 08/22/17 at 09:00 Prasugrel (Effient) 10 mg DAILY PO Last administered on 08/22/17 09:05; Start 08/22/17 at 09:00 Spironolactone (Aldactone) 25 mg DAILY PO Last administered on 08/22/17 09:03 ; Start 08/22/17 at 09:00 Sodium Bicarbonate (Sodium Bicarbonate) 325 mg BID PO Last administered on 09:01; Start 08/22/17 at 09:00 Furosemide (Lasix) 40 mg DAILY IVP Last administered on 08/22/17 09:08; Start 08/22/17 at 09:00 Insulin Aspart (NovoLOG) 0-5 UNITS TIDWMEALS SQ ; Start 08/22/17 at 12:00 Dextrose (Dextrose 50%-Water Syringe) 12.5 gm PRN Q15MIN PRN IV SEE COMMENTS; Start 08/22/17 at 08:45 Active Scripts Active Furosemide 40 Mg Tablet 40 Mg PO DAILY 30 Days Aldactone (Spironolactone) 25 Mg Tablet 25 Mg PO DAILY Isosorbide Mononitrate Er (Isosorbide Mononitrate) 30 Mg Tab.er.24h 60 Mg PO DAILY Hydralazine Hcl 25 Mg Tablet 25 Mg PO TID Carvedilol 6.25 Mg Tablet 6.25 Mg PO BIDWMEALS Atorvastatin Calcium 10 Mg Tablet 10 Mg PO QHS Albuterol Sulfate Neb Soln (Albuterol Sulfate) 2.5 Mg/3 Ml Vial.neb 2.5 Mg NEB RTQID Reported Levothyroxine Sodium 150 Mcg Tablet 150 Mcg PO DAILYAC Lantus Solostar (Insulin Glargine,Hum.rec.anlog) 100 Unit/1 Ml Insuln.pen 3 Unit SQ HS Famotidine 20 Mg Tablet 20 Mg PO BID Effient (Prasugrel Hcl) 10 Mg Tablet 10 Mg PO DAILY Lisinopril 40 Mg Tablet 40 Mg PO BID Sodium Bicarbonate 325 Mg Tablet 10 Gr PO BID Aspirin 81 Mg Tab.chew 1 Tab PO DAILY Novolog Flexpen (Insulin Aspart) 100 Unit/1 Ml Insuln.pen 5 Unit SQ TIDWMEALS Celexa (Citalopram Hydrobromide) 20 Mg Tablet 20 Mg PO DAILY Vitamin D2 (Ergocalciferol (Vitamin D2)) 50,000 Unit Capsule 50,000 Unit PO WEEKLY Allergies Allergies: Coded Allergies: adhesive (Verified Allergy, Intermediate, ARM SWELLING, 12/29/16) arm swelling when nicotinE patch applied diphenhydramine (Verified Allergy, Intermediate, swelling, 08/26/15) ROS General: YES: Fatigue, Malaise, Appetite PSYCHOLOGICAL ROS: YES: Anxiety Eyes: Yes Decreased vision HEENT: YES: Heacaches Respiratory: YES: Cough, Orthopnea Cardiovascular: yes Orthopnea, yes Edema Gastrointestinal: Yes Constipation Genitourinary: YES Other (NOCTURIA) Musculoskeletal: Yes Muscular Weakness Neurological: Yes Weakness Skin: Yes Dry Skin Physical Exam General: Alert, Oriented X3, No acute distress HEENT: PERRLA, EOMI, Mucous membr. moist/pink Lungs: Other (BASILAR RALES) Heart: Regular rate, Normal S1 Abdomen: Normal bowel sounds, Soft, No tenderness Extremities: No clubbing, No edema Skin: No breakdown Neuro: Normal speech, Cranial nerves 3-12 NL Psych/Mental Status: Mental status NL, Mood NL MUSCULOSKELETAL: No joint tenderness, No deformity, Other (LEFT BKA) Vitals VITALS Vital Signs Date Time Temp Pulse Resp B/P (MAP) Pulse Ox O2 Delivery O2 Flow Rate FiO2 08/22/17 10:35 96.9 73 18 133/64 (87) 95 Nasal Cannula 4.0 96.9 Labs Labs Laboratory Tests Test 08/21/17 20:06 08/21/17 20:18 08/21/17 20:20 08/22/17 02:00 Glucose (Fingerstick) 268 mg/dL (70-99) O2 Saturation 95 % (92-99) Arterial Blood pH 7.35 (7.35-7.45) Arterial Blood pCO2 at Patient Temp 35 mmHg (35-46) Arterial Blood pO2 at Patient Temp 78 mmHg (65-108) Arterial Blood HCO3 19 mmol/L (21-28) Arterial Blood Base Excess -6 mmol/L (-3-3) FiO2 32.0 White Blood Count 15.0 x10^3/uL (4.0-11.0) Red Blood Count 3.25 x10^6/uL (3.50-5.40) Hemoglobin 10.0 g/dL (12.0-15.5) Hematocrit 30.8 % (36.0-47.0) Mean Corpuscular Volume 95 fL (79-100) Mean Corpuscular Hemoglobin 31 pg (25-35) Mean Corpuscular Hemoglobin Concent 33 g/dL (31-37) Red Cell Distribution Width 14.9 % (11.5-14.5) Platelet Count 181 x10^3/uL (140-400) Neutrophils (%) (Auto) 85 % (31-73) Lymphocytes (%) (Auto) 7 % (24-48) Monocytes (%) (Auto) 8 % (0-9) Eosinophils (%) (Auto) 1 % (0-3) Basophils (%) (Auto) 1 % (0-3) Neutrophils # (Auto) 12.7 x10^3uL (1.8-7.7) Lymphocytes # (Auto) 1.0 x10^3/uL (1.0-4.8) Monocytes # (Auto) 1.2 x10^3/uL (0.0-1.1) Eosinophils # (Auto) 0.1 x10^3/uL (0.0-0.7) Basophils # (Auto) 0.1 x10^3/uL (0.0-0.2) Segmented Neutrophils % 80 % (35-66) Lymphocytes % 9 % (24-48) Monocytes % 9 % (0-10) Eosinophils % 2 % (0-5) Platelet Estimate Adequate (ADEQUATE) Sodium Level 135 mmol/L (136-145) Potassium Level 3.7 mmol/L (3.5-5.1) Chloride Level 101 mmol/L (98-107) Carbon Dioxide Level 22 mmol/L (21-32) Anion Gap 12 (6-14) Blood Urea Nitrogen 76 mg/dL (7-20) Creatinine 3.4 mg/dL (0.6-1.0) Estimated GFR (Cockcroft-Gault) 13.6 BUN/Creatinine Ratio 22 (6-20) Glucose Level 266 mg/dL (70-99) Calcium Level 7.9 mg/dL (8.5-10.1) Magnesium Level 1.8 mg/dL (1.8-2.4) Total Bilirubin 0.5 mg/dL (0.2-1.0) Aspartate Amino Transf (AST/SGOT) 22 U/L (15-37) Alanine Aminotransferase (ALT/SGPT) 30 U/L (14-59) Alkaline Phosphatase 87 U/L (46-116) Creatine Kinase 50 U/L (26-192) Creatine Kinase MB (Mass) 1.3 ng/mL (0.0-3.6) Creatine Kinase MB Relative Index 2.6 % (0-4) Troponin I Quantitative 0.277 ng/mL (0.000-0.055) 0.341 ng/mL (0.000-0.055) WT-Nub-L-Type Natriuretic Peptide [id number] pg/mL (0-124) Total Protein 6.6 g/dL (6.4-8.2) Albumin 2.7 g/dL (3.4-5.0) Albumin/Globulin Ratio 0.7 (1.0-1.7) Test 08/22/17 05:15 08/22/17 07:43 08/22/17 10:56 White Blood Count 12.6 x10^3/uL (4.0-11.0) Red Blood Count 3.00 x10^6/uL (3.50-5.40) Hemoglobin 9.1 g/dL (12.0-15.5) Hematocrit 28.5 % (36.0-47.0) Mean Corpuscular Volume 95 fL (79-100) Mean Corpuscular Hemoglobin 30 pg (25-35) Mean Corpuscular Hemoglobin Concent 32 g/dL (31-37) Red Cell Distribution Width 15.1 % (11.5-14.5) Platelet Count 130 x10^3/uL (140-400) Neutrophils (%) (Auto) 80 % (31-73) Lymphocytes (%) (Auto) 10 % (24-48) Monocytes (%) (Auto) 9 % (0-9) Eosinophils (%) (Auto) 1 % (0-3) Basophils (%) (Auto) 0 % (0-3) Neutrophils # (Auto) 10.1 x10^3uL (1.8-7.7) Lymphocytes # (Auto) 1.3 x10^3/uL (1.0-4.8) Monocytes # (Auto) 1.1 x10^3/uL (0.0-1.1) Eosinophils # (Auto) 0.1 x10^3/uL (0.0-0.7) Basophils # (Auto) 0.1 x10^3/uL (0.0-0.2) Sodium Level 139 mmol/L (136-145) Potassium Level 3.4 mmol/L (3.5-5.1) Chloride Level 106 mmol/L (98-107) Carbon Dioxide Level 21 mmol/L (21-32) Anion Gap 12 (6-14) Blood Urea Nitrogen 73 mg/dL (7-20) Creatinine 3.4 mg/dL (0.6-1.0) Estimated GFR (Cockcroft-Gault) 13.6 Glucose Level 190 mg/dL (70-99) Calcium Level 8.0 mg/dL (8.5-10.1) Troponin I Quantitative 0.351 ng/mL (0.000-0.055) 0.247 ng/mL (0.000-0.055) Glucose (Fingerstick) 186 mg/dL (70-99) Laboratory Tests Test 08/21/17 20:06 08/21/17 20:18 08/21/17 20:20 08/22/17 02:00 Glucose (Fingerstick) 268 mg/dL (70-99) O2 Saturation 95 % (92-99) Arterial Blood pH 7.35 (7.35-7.45) Arterial Blood pCO2 at Patient Temp 35 mmHg (35-46) Arterial Blood pO2 at Patient Temp 78 mmHg (65-108) Arterial Blood HCO3 19 mmol/L (21-28) Arterial Blood Base Excess -6 mmol/L (-3-3) FiO2 32.0 White Blood Count 15.0 x10^3/uL (4.0-11.0) Red Blood Count 3.25 x10^6/uL (3.50-5.40) Hemoglobin 10.0 g/dL (12.0-15.5) Hematocrit 30.8 % (36.0-47.0) Mean Corpuscular Volume 95 fL (79-100) Mean Corpuscular Hemoglobin 31 pg (25-35) Mean Corpuscular Hemoglobin Concent 33 g/dL (31-37) Red Cell Distribution Width 14.9 % (11.5-14.5) Platelet Count 181 x10^3/uL (140-400) Neutrophils (%) (Auto) 85 % (31-73) Lymphocytes (%) (Auto) 7 % (24-48) Monocytes (%) (Auto) 8 % (0-9) Eosinophils (%) (Auto) 1 % (0-3) Basophils (%) (Auto) 1 % (0-3) Neutrophils # (Auto) 12.7 x10^3uL (1.8-7.7) Lymphocytes # (Auto) 1.0 x10^3/uL (1.0-4.8) Monocytes # (Auto) 1.2 x10^3/uL (0.0-1.1) Eosinophils # (Auto) 0.1 x10^3/uL (0.0-0.7) Basophils # (Auto) 0.1 x10^3/uL (0.0-0.2) Segmented Neutrophils % 80 % (35-66) Lymphocytes % 9 % (24-48) Monocytes % 9 % (0-10) Eosinophils % 2 % (0-5) Platelet Estimate Adequate (ADEQUATE) Sodium Level 135 mmol/L (136-145) Potassium Level 3.7 mmol/L (3.5-5.1) Chloride Level 101 mmol/L (98-107) Carbon Dioxide Level 22 mmol/L (21-32) Anion Gap 12 (6-14) Blood Urea Nitrogen 76 mg/dL (7-20) Creatinine 3.4 mg/dL (0.6-1.0) Estimated GFR (Cockcroft-Gault) 13.6 BUN/Creatinine Ratio 22 (6-20) Glucose Level 266 mg/dL (70-99) Calcium Level 7.9 mg/dL (8.5-10.1) Magnesium Level 1.8 mg/dL (1.8-2.4) Total Bilirubin 0.5 mg/dL (0.2-1.0) Aspartate Amino Transf (AST/SGOT) 22 U/L (15-37) Alanine Aminotransferase (ALT/SGPT) 30 U/L (14-59) Alkaline Phosphatase 87 U/L (46-116) Creatine Kinase 50 U/L (26-192) Creatine Kinase MB (Mass) 1.3 ng/mL (0.0-3.6) Creatine Kinase MB Relative Index 2.6 % (0-4) Troponin I Quantitative 0.277 ng/mL (0.000-0.055) 0.341 ng/mL (0.000-0.055) HQ-Wav-M-Type Natriuretic Peptide [id number] pg/mL (0-124) Total Protein 6.6 g/dL (6.4-8.2) Albumin 2.7 g/dL (3.4-5.0) Albumin/Globulin Ratio 0.7 (1.0-1.7) Test 08/22/17 05:15 08/22/17 07:43 08/22/17 10:56 White Blood Count 12.6 x10^3/uL (4.0-11.0) Red Blood Count 3.00 x10^6/uL (3.50-5.40) Hemoglobin 9.1 g/dL (12.0-15.5) Hematocrit 28.5 % (36.0-47.0) Mean Corpuscular Volume 95 fL (79-100) Mean Corpuscular Hemoglobin 30 pg (25-35) Mean Corpuscular Hemoglobin Concent 32 g/dL (31-37) Red Cell Distribution Width 15.1 % (11.5-14.5) Platelet Count 130 x10^3/uL (140-400) Neutrophils (%) (Auto) 80 % (31-73) Lymphocytes (%) (Auto) 10 % (24-48) Monocytes (%) (Auto) 9 % (0-9) Eosinophils (%) (Auto) 1 % (0-3) Basophils (%) (Auto) 0 % (0-3) Neutrophils # (Auto) 10.1 x10^3uL (1.8-7.7) Lymphocytes # (Auto) 1.3 x10^3/uL (1.0-4.8) Monocytes # (Auto) 1.1 x10^3/uL (0.0-1.1) Eosinophils # (Auto) 0.1 x10^3/uL (0.0-0.7) Basophils # (Auto) 0.1 x10^3/uL (0.0-0.2) Sodium Level 139 mmol/L (136-145) Potassium Level 3.4 mmol/L (3.5-5.1) Chloride Level 106 mmol/L (98-107) Carbon Dioxide Level 21 mmol/L (21-32) Anion Gap 12 (6-14) Blood Urea Nitrogen 73 mg/dL (7-20) Creatinine 3.4 mg/dL (0.6-1.0) Estimated GFR (Cockcroft-Gault) 13.6 Glucose Level 190 mg/dL (70-99) Calcium Level 8.0 mg/dL (8.5-10.1) Troponin I Quantitative 0.351 ng/mL (0.000-0.055) 0.247 ng/mL (0.000-0.055) Glucose (Fingerstick) 186 mg/dL (70-99) Assessment/Plan Assessment/Plan IMP CKD STAGE 4 WITH CR OF ABOUT 3.0 AT BASELINE ACUTE CONGESTIVE HEART FAILURE ANEMIA OF CKD DM II HTN PLAN CONT WITH IV LASIX START ARANESP CHECK IRON CHECK 24 HR URINE STUDY CONT WITH JOJO-I KAYLAH ROSADO MD Aug 22, 2017 11:27
--- NOTE | 2017-08-22 11:43 | PDOC2 ---
[facility] [employer] [employer] 08/22/17 1143: CARDIAC CONSULT DATE OF CONSULT Date of Consult DATE: 08/22/17 TIME: 11:21 REASON FOR CONSULT Reason for Consult: CHF, elevated troponin REFERRING PHYSICIAN Referring Physician: Yue SOURCE Source: Chart review, Patient HISTORY OF PRESENT ILLNESS HISTORY OF PRESENT ILLNESS This is a pleasant 67 yo female admitted for complains of SOA. Reports that her SOA started over the weekend. This has progressed to increasing SOA associated with increased RLE swelling, productive coughing white to yellow sputum and orthopnea. Denies any CP, palpitations, arm/jaw pain. She does have episodes of diaphoresis at night intermittently. No fever or chills. She has not been taking her medications and verbalized that she just could not afford it. She drinks 4 cans of pepsi daily and water. She tries to regulate her food intake particularly curb her sodium intake but not really keeping track. Positive for overhydration and also does not check her BP nor BG at home. PAST MEDICAL HISTORY Past Medical History Cardiovascular: CAD, CHF, HTN, [place], Hyperlipidemia Pulmonary: COPD, severe pulmonary HTN GI: No pertinent hx Heme/Onc: Anemia NOS Hepatobiliary: No pertinent hx Psych: Depression Rheumatologic: No pertinent hx Infectious disease: No pertinent hx Renal/: Chronic renal insuff Endocrine: Diabetes PAST SURGICAL HISTORY Past Surgical History Cholecystectomy, , Other (Fem pop bypass, LBKA, AICD, PCI/BMS to ramus , right toe amputations) FAMILY HISTORY Family History Cancer, Chronic Bronchitis, Diabetes, Hypertension SOCIAL HISTORY Smoke: No ALCOHOL: none Drugs: None Lives: with Family CURRENT MEDICATIONS CURRENT MEDICATIONS Current Medications Medications (Trade) Dose Ordered Sig/Slick Route PRN Reason Start Time Stop Time Status Last Admin Dose Admin Albuterol/ Ipratropium (Duoneb) 6 ml 1X ONCE NEB 08/21/17 20:15 08/21/17 20:16 DC 08/21/17 20:22 Nicardipine HCl 50 mg/Sodium Chloride 270 ml @ 25 mls/hr CONT PRN IV SEE I/O RECORD 08/21/17 20:30 08/21/17 22:12 Albuterol/ Ipratropium (Duoneb) 3 ml RTQID NEB 08/22/17 08:00 08/22/17 09:06 DC 08/22/17 07:18 Aspirin (Children'S Aspirin) 81 mg DAILY PO 08/22/17 09:00 08/22/17 09:07 Carvedilol (Coreg) 6.25 mg BIDWMEALS PO 08/22/17 09:00 08/22/17 09:04 Citalopram Hydrobromide (CeleXA) 20 mg DAILY PO 08/22/17 09:00 08/22/17 09:03 Famotidine (Pepcid) 20 mg DAILY PO 08/22/17 09:00 08/22/17 09:03 Hydralazine HCl (Apresoline) 25 mg TID PO 08/22/17 09:00 08/22/17 09:05 Isosorbide Mononitrate (Imdur) 60 mg DAILY PO 08/22/17 09:00 08/22/17 09:02 Lisinopril (Prinivil) 40 mg BID PO 08/22/17 09:00 08/22/17 09:07 Prasugrel (Effient) 10 mg DAILY PO 08/22/17 09:00 08/22/17 09:05 Spironolactone (Aldactone) 25 mg DAILY PO 08/22/17 09:00 08/22/17 09:03 Sodium Bicarbonate (Sodium Bicarbonate) 325 mg BID PO 08/22/17 09:00 08/22/17 09:01 Furosemide (Lasix) 40 mg DAILY IVP 08/22/17 09:00 08/22/17 09:08 ALLERGIES ALLERGIES: Coded Allergies: adhesive (Verified Allergy, Intermediate, ARM SWELLING, 12/29/16) arm swelling when nicotinE patch applied diphenhydramine (Verified Allergy, Intermediate, swelling, 08/26/15) ROS Review of System 14 point ROS evaluated with pertinent positives noted per HPI PHYSICAL EXAM General: Alert, Oriented X3, Cooperative, mild distress HEENT: Atraumatic, Mucous membr. moist/pink Lungs: Other (basilar crackles) Heart: Regular rate (SR), Other (S4; 2/6 systolic murmur to LLS border) Abdomen: Soft, Other (obese with large pannus) Extremities: No cyanosis, Other (3+ RLE edema) Skin: No breakdown, No significant lesion Neuro: Normal speech, Sensation intact Psych/Mental Status: Mood NL MUSCULOSKELETAL: Osteoarthritic changes both hands, Other (LBKA with right toe amputations) VITALS VITALS Vital Signs Date Time Temp Pulse Resp B/P (MAP) Pulse Ox O2 Delivery O2 Flow Rate FiO2 08/22/17 10:35 96.9 73 18 133/64 (87) 95 Nasal Cannula 4.0 96.9 LABS Lab: Laboratory Tests Test 08/21/17 20:06 08/21/17 20:18 08/21/17 20:20 08/22/17 02:00 Glucose (Fingerstick) 268 mg/dL (70-99) O2 Saturation 95 % (92-99) Arterial Blood pH 7.35 (7.35-7.45) Arterial Blood pCO2 at Patient Temp 35 mmHg (35-46) Arterial Blood pO2 at Patient Temp 78 mmHg (65-108) Arterial Blood HCO3 19 mmol/L (21-28) Arterial Blood Base Excess -6 mmol/L (-3-3) FiO2 32.0 White Blood Count 15.0 x10^3/uL (4.0-11.0) Red Blood Count 3.25 x10^6/uL (3.50-5.40) Hemoglobin 10.0 g/dL (12.0-15.5) Hematocrit 30.8 % (36.0-47.0) Mean Corpuscular Volume 95 fL (79-100) Mean Corpuscular Hemoglobin 31 pg (25-35) Mean Corpuscular Hemoglobin Concent 33 g/dL (31-37) Red Cell Distribution Width 14.9 % (11.5-14.5) Platelet Count 181 x10^3/uL (140-400) Neutrophils (%) (Auto) 85 % (31-73) Lymphocytes (%) (Auto) 7 % (24-48) Monocytes (%) (Auto) 8 % (0-9) Eosinophils (%) (Auto) 1 % (0-3) Basophils (%) (Auto) 1 % (0-3) Neutrophils # (Auto) 12.7 x10^3uL (1.8-7.7) Lymphocytes # (Auto) 1.0 x10^3/uL (1.0-4.8) Monocytes # (Auto) 1.2 x10^3/uL (0.0-1.1) Eosinophils # (Auto) 0.1 x10^3/uL (0.0-0.7) Basophils # (Auto) 0.1 x10^3/uL (0.0-0.2) Segmented Neutrophils % 80 % (35-66) Lymphocytes % 9 % (24-48) Monocytes % 9 % (0-10) Eosinophils % 2 % (0-5) Platelet Estimate Adequate (ADEQUATE) Sodium Level 135 mmol/L (136-145) Potassium Level 3.7 mmol/L (3.5-5.1) Chloride Level 101 mmol/L (98-107) Carbon Dioxide Level 22 mmol/L (21-32) Anion Gap 12 (6-14) Blood Urea Nitrogen 76 mg/dL (7-20) Creatinine 3.4 mg/dL (0.6-1.0) Estimated GFR (Cockcroft-Gault) 13.6 BUN/Creatinine Ratio 22 (6-20) Glucose Level 266 mg/dL (70-99) Calcium Level 7.9 mg/dL (8.5-10.1) Magnesium Level 1.8 mg/dL (1.8-2.4) Total Bilirubin 0.5 mg/dL (0.2-1.0) Aspartate Amino Transf (AST/SGOT) 22 U/L (15-37) Alanine Aminotransferase (ALT/SGPT) 30 U/L (14-59) Alkaline Phosphatase 87 U/L (46-116) Creatine Kinase 50 U/L (26-192) Creatine Kinase MB (Mass) 1.3 ng/mL (0.0-3.6) Creatine Kinase MB Relative Index 2.6 % (0-4) Troponin I Quantitative 0.277 ng/mL (0.000-0.055) 0.341 ng/mL (0.000-0.055) ZT-Ori-S-Type Natriuretic Peptide [id number] pg/mL (0-124) Total Protein 6.6 g/dL (6.4-8.2) Albumin 2.7 g/dL (3.4-5.0) Albumin/Globulin Ratio 0.7 (1.0-1.7) Test 08/22/17 05:15 08/22/17 07:43 08/22/17 10:56 White Blood Count 12.6 x10^3/uL (4.0-11.0) Red Blood Count 3.00 x10^6/uL (3.50-5.40) Hemoglobin 9.1 g/dL (12.0-15.5) Hematocrit 28.5 % (36.0-47.0) Mean Corpuscular Volume 95 fL (79-100) Mean Corpuscular Hemoglobin 30 pg (25-35) Mean Corpuscular Hemoglobin Concent 32 g/dL (31-37) Red Cell Distribution Width 15.1 % (11.5-14.5) Platelet Count 130 x10^3/uL (140-400) Neutrophils (%) (Auto) 80 % (31-73) Lymphocytes (%) (Auto) 10 % (24-48) Monocytes (%) (Auto) 9 % (0-9) Eosinophils (%) (Auto) 1 % (0-3) Basophils (%) (Auto) 0 % (0-3) Neutrophils # (Auto) 10.1 x10^3uL (1.8-7.7) Lymphocytes # (Auto) 1.3 x10^3/uL (1.0-4.8) Monocytes # (Auto) 1.1 x10^3/uL (0.0-1.1) Eosinophils # (Auto) 0.1 x10^3/uL (0.0-0.7) Basophils # (Auto) 0.1 x10^3/uL (0.0-0.2) Sodium Level 139 mmol/L (136-145) Potassium Level 3.4 mmol/L (3.5-5.1) Chloride Level 106 mmol/L (98-107) Carbon Dioxide Level 21 mmol/L (21-32) Anion Gap 12 (6-14) Blood Urea Nitrogen 73 mg/dL (7-20) Creatinine 3.4 mg/dL (0.6-1.0) Estimated GFR (Cockcroft-Gault) 13.6 Glucose Level 190 mg/dL (70-99) Calcium Level 8.0 mg/dL (8.5-10.1) Troponin I Quantitative 0.351 ng/mL (0.000-0.055) 0.247 ng/mL (0.000-0.055) Glucose (Fingerstick) 186 mg/dL (70-99) ECHOCARDIOGRAM ECHOCARDIOGRAM <Conclusion> Left ventricle systolic function is moderate to severely impaired. The Ejection Fraction is 25%. Mild aortic regurgitation. Mild to moderate mitral regurgitation. Mild tricuspid regurgitation. There is moderate to severe pulmonary hypertension. The PA pressure was estimated at 60 mmHg. There is no evidence of significant pericardial effusion. DATE: 11/21/16 1524 HEART CATH HEART CATH Conclusion 1. Severely elevated filling pressures. LVEDP 33 mm Hg. 2. Two vessel coronary artery disease. 3. Successful PCI to the proximal ramus with a 3.0/15 BMS. CORONARY ANGIOGRAPHY: LM is a large caliber vessel with normal angiographic appearance. LAD is a large caliber vessel with mild diffuse irregularities of up to 40%. Ramus is a moderate caliber vessel with a proximal 80% stenosis. LCx is a moderate caliber non-dominant vessel with mild diffuse irregularities of up to 30%. OM1 is a small caliber vessel with normal angiographic appearance. RCA is a moderate caliber dominant vessel with a proximal 100% occlusion. The distal RCA fills via right to right and left to right collaterals. RPDA and RPL are moderate caliber vessels seen to fill faintly via collaterals. DATE: 08/31/16 1035 ASSESSMENT/PLAN ASSESSMENT/PLAN 1. Acute on chronic systolic CHF: mainly due to noncompliance. Better after placed on bipap and diurese. 2. 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 ICM: Last EF at 25% 4. AICD in situ: (Biotronik) 5. CAD. PCI/BMS to ramus as noted above. 6. Accelerated HTN: better 6. Elevated troponin: peaked at 0.35 CP free. No acute EKG changes. Type 2. 7. DM2: suspecting hypoglycemic episodes at night. 8. COPD: O2 dependent 9. Noncompliance: reports due to lack of funds. Recommendations 1. Restart cardiac meds and anitplatelets 2. Possible future HD. Defer to nephrology 3. Discussed diet, treatment compliance. Continue with optimization and secondary prevention. 4. Interrogate device, diuretic therapy. Problems: LAURA RIVERA MD 08/22/17 5854: CARDIAC CONSULT ALLERGIES ALLERGIES: Coded Allergies: adhesive (Verified Allergy, Intermediate, ARM SWELLING, 12/29/16) arm swelling when nicotinE patch applied diphenhydramine (Verified Allergy, Intermediate, swelling, 08/26/15) ASSESSMENT/PLAN ASSESSMENT/PLAN Pt. seen and examined. Agree with above [employer] note. Continue diuretics. Needs significant amount of fluid off. Will follow along. Problems: SAM SEARS APRN Aug 22, 2017 11:43 LAURA RIVERA MD Aug 22, 2017 22:34
--- NOTE | 2017-08-22 11:43 | PDOC ---
Provider Note Provider Note dictated ANGY FONTANEZ MD Aug 22, 2017 11:43
[2017-08-22] MEDS: ERGOCALCIFEROL (VITAMIN D2) 50,000 UNIT CAPSULE. PO SCH (12:06)
[2017-08-22] MEDS: LEVOTHYROXINE 150 MCG TABLET PO SCH (12:06)
[2017-08-22] MEDS: INSULIN ASPART 300 UNITS/3 ML INSULN.PEN SQ SCH ×4 (12:09→17:20)
--- NOTE | 2017-08-22 12:23 | CONS ---
DATE OF CONSULTATION: ATTENDING PHYSICIAN: Dr. Hernandez. REASON FOR CONSULTATION: Dyspnea. HISTORY OF PRESENT ILLNESS: The patient is a 67-year-old female who has history of severe cardiomyopathy with an EF of 25%. The patient came into the hospital with increasing shortness of breath. She had some increased right lower extremity edema. She has a left lower extremity amputee. The patient had left BKA. The patient's chest x-ray was reviewed and was consistent with interstitial edema. There is also cardiomegaly. She has progressive renal failure and may end up on dialysis. Nephrology has been following as well. She also smoked for 50 years. The patient no longer smokes cigarettes. She is on home oxygen continuously at 2-3 liters on a 24-hour basis. PAST MEDICAL HISTORY: Significant for CAD, severe cardiomyopathy with an EF of 25%, history of chronic systolic heart failure, CKD, hypertension, MO, COPD, unknown FEV1. PAST SURGICAL HISTORY: Cholecystectomy, , left BKA. FAMILY HISTORY: Cancer, chronic bronchitis, diabetes and hypertension. SOCIAL HISTORY: Smoked for 50 years, less than 1 pack per day. Quit last year. REVIEW OF SYSTEMS: Twelve-point system obtained. Pertinent positives discussed in history of present illness, otherwise noncontributory. All systems that were negative were reviewed as well. MEDICATIONS: All reviewed as listed in the MRAD. PHYSICAL EXAMINATION: VITAL SIGNS: Blood pressure stable, pulse ox 95% on 4 liters, afebrile. HEENT: Sclerae nonicteric. NECK: Supple. LUNGS: Diminished breath sounds posteriorly with few anterior wheezes. CARDIOVASCULAR: Regular rate and rhythm. ABDOMEN: Soft, obese. EXTREMITIES: With left BKA and right 2+ pitting edema. LABORATORY DATA: Reviewed. BUN 73 and creatinine of 3.4, bicarbonate 21, potassium 3.4. Troponin is 0.35. ABGs with a pH of 7.35, pCO2 of 37 and pO2 of 78 with bicarbonate of 19 on 32% FiO2. White cell count 12.6, hemoglobin 9.1, platelets are 130. IMPRESSION: 1. Acute on chronic systolic heart failure presenting as increasing dyspnea and right lower extremity edema along with interstitial infiltrates on the chest x-ray. 2. Underlying severe cardiomyopathy with an EF of 25%. 3. Acute on chronic renal failure. 4. Underlying chronic obstructive pulmonary disease. Smoked for 45-50 years, unknown FEV1. 5. Chronic hypoxic respiratory failure, on home oxygen 2-3 liters, but now requiring 4 liters. RECOMMENDATIONS: 1. Continue with present oxygen. 2. Continue with IV Lasix. It will be a challenge to diurese her aggressively due to her worsening renal failure. I suspect that she may be nearing hemodialysis. She has poor pump function due to her cardiomyopathy and resulting in poor perfusion to the kidneys. 3. Monitor renal function. 4. P.r.n. bicarbonate. She has developed metabolic acidosis secondary to renal failure. 5. Continue bronchodilators. 6. PFTs as an outpatient. 7. We will follow along with you. Discuss with RN. ANGY FONTANEZ MD DR: KYREE/nts JOB#: [id number] / [id number]
[2017-08-22 14:30] VITALS: BP 114/51
[2017-08-22] MEDS: FUROSEMIDE 40 MG/4 ML VIAL. IVP SCH ×2 (15:13→21:10)
[2017-08-22 19:25] VITALS: BP 146/56
[2017-08-22] MEDS: ATORVASTATIN CALCIUM 10 MG TABLET. PO SCH (21:09)
[2017-08-22] MEDS: DARBEPOETIN ALFA 60 MCG/0.3 ML DISP.SYRIN. SQ SCH (21:10)
[2017-08-22 23:30] VITALS: BP 123/62
[2017-08-23 03:28] VITALS: BP 115/56
[2017-08-23 05:14] LABS: HEMATOCRIT 25.8 % (36.0-47.0); HEMOGLOBIN 8.3 g/dL (12.0-15.5); RED BLOOD COUNT 2.74 x10^6/uL (3.50-5.40); RED CELL DISTRIBUTION WIDTH 15.1 % (11.5-14.5); WHITE BLOOD COUNT 12.8 x10^3/uL (4.0-11.0)
[2017-08-23 05:37] LABS: CALCIUM 7.9 mg/dL (8.5-10.1); CREATININE 3.6 mg/dL (0.6-1.0); GFR 12.7; POTASSIUM 3.5 mmol/L (3.5-5.1)
[2017-08-23 05:39] LABS: % SAT IRON 6 % (15-34); IRON,SERUM 9 ug/dL (50-170)
[2017-08-23] MEDS: LEVOTHYROXINE 150 MCG TABLET PO SCH (06:12)
[2017-08-23] MEDS: FUROSEMIDE 40 MG/4 ML VIAL. IVP SCH ×3 (06:12→20:21)
[2017-08-23 07:10] VITALS: BP 123/58
[2017-08-23] MEDS: ALBUTEROL SULFATE 2.5 MG/3 ML NEBU. NEB SCH ×4 (07:39→20:28)
[2017-08-23] MEDS: INSULIN ASPART 300 UNITS/3 ML INSULN.PEN SQ SCH ×6 (08:00→18:24)
--- NOTE | 2017-08-23 08:26 | PDOC ---
SUBJECTIVE Subjective Pt says that her breathing has improved but is not back to baseline. Swelling has improved but still edematous. OBJECTIVE Vital Signs Vital Signs Date Time Temp Pulse Resp B/P (MAP) Pulse Ox O2 Delivery O2 Flow Rate FiO2 08/23/17 07:41 97 Nasal Cannula 3.0 08/23/17 07:10 98.3 60 20 123/58 (79) 98 Nasal Cannula 4.0 98.3 08/23/17 03:28 98.1 66 21 115/56 (75) 95 Nasal Cannula 4.0 98.1 08/22/17 23:31 95 08/22/17 23:30 98.3 65 25 123/62 (82) 95 BiPAP/CPAP 4.0 98.3 08/22/17 22:00 96 08/22/17 21:09 63 146/56 08/22/17 21:09 63 146/56 08/22/17 20:00 Nasal Cannula 3.0 08/22/17 19:41 97 Nasal Cannula 3.0 08/22/17 19:25 97.9 63 19 146/56 (86) 95 Nasal Cannula 4.0 97.9 08/22/17 17:17 65 123/55 08/22/17 16:32 Nasal Cannula 3.0 08/22/17 15:12 65 114/51 08/22/17 14:30 98.6 65 20 114/51 (72) 95 Nasal Cannula 4.0 98.6 08/22/17 11:55 Nasal Cannula 3.0 08/22/17 10:35 96.9 73 18 133/64 (87) 95 Nasal Cannula 4.0 96.9 08/22/17 09:07 75 156/70 08/22/17 09:05 75 156/70 08/22/17 09:04 75 156/70 08/22/17 09:02 75 156/70 I & O Intake and Output 08/23/17 07:00 Intake Total 880 ml Output Total 2050 ml Balance -1170 ml Intake Oral 880 ml Output Urine Total 2050 ml PHYSICAL EXAM Physical Exam General: Alert, Oriented X3, Cooperative, No acute distress HEENT: Atraumatic, PERRLA, EOMI, Mucous membr. moist/pink Lungs: faint rhonchi RLL Heart: RRR, no rubs, no gallops, no murmurs Abdomen: Normal bowel sounds, Soft, No tenderness, No hepatosplenomegaly Extremities: No clubbing, No cyanosis, Other (2+ pitting edema RLE, left BKA) Skin: No rashes, No significant lesion Neuro: Normal tone, Sensation intact, Cranial nerves 3-12 NL Psych/Mental Status: Mental status NL, Mood NL ASSESSMENT/PLAN Assessment/Plan Pt is a 67yo CF admitted for acute on chronic respiratory failure 2/2 CHF exacerbation 1)Acute on chronic respiratory failure- improving 2)CHF Exacerbation- improving with IV diuresis. Pt not quite back to baseline. Cardiology following, receiving Lasix 40mg IV q8H 3)HTN- well controlled. Will continue pt's Imdur 60mg ER, Norvasc 10mg, Hydralazine 25mg TID< Lisinopril 40mg, Carvedilol 6.25mg BID, Spironolactone 25mg 4)GERD- pt continued on Famotidine 5)CKD- Stage 4, Cr stable from previous admissions. Renal following, continue NaHCO3 6)DM2- previously well controlled. Fasting BS this morning WNL. Pt's Lantus was DC'd during her last visit because of hypoglycemia. Continued on Novolog 5 units QAC and has SSI available (received 6 units over last 24hours) 7)COPD- pt continued on Albuterol as needed 8)HLD- pt continued on Atorvastatin 10mg 9)Hypothyroidism- moderately controlled. TSH 07/10 was mildly elevated. Continue Levothyroxine 150mcg 10)PEM- mild 11)Elevated troponin- mildly elevated troponin likely 2/2 CHF exacerbation and CKD. Pt denies chest pain; trending down. Problems: COMMENT Lab Laboratory Tests Test 08/22/17 10:56 08/22/17 12:02 08/22/17 16:50 08/22/17 21:06 Troponin I Quantitative 0.247 ng/mL (0.000-0.055) Glucose (Fingerstick) 242 mg/dL (70-99) 212 mg/dL (70-99) 181 mg/dL (70-99) Test 08/23/17 04:55 08/23/17 07:12 White Blood Count 12.8 x10^3/uL (4.0-11.0) Red Blood Count 2.74 x10^6/uL (3.50-5.40) Hemoglobin 8.3 g/dL (12.0-15.5) Hematocrit 25.8 % (36.0-47.0) Mean Corpuscular Volume 94 fL (79-100) Mean Corpuscular Hemoglobin 30 pg (25-35) Mean Corpuscular Hemoglobin Concent 32 g/dL (31-37) Red Cell Distribution Width 15.1 % (11.5-14.5) Platelet Count 130 x10^3/uL (140-400) Sodium Level 137 mmol/L (136-145) Potassium Level 3.5 mmol/L (3.5-5.1) Chloride Level 104 mmol/L (98-107) Carbon Dioxide Level 24 mmol/L (21-32) Anion Gap 9 (6-14) Blood Urea Nitrogen 79 mg/dL (7-20) Creatinine 3.6 mg/dL (0.6-1.0) Estimated GFR (Cockcroft-Gault) 12.7 Glucose Level 128 mg/dL (70-99) Calcium Level 7.9 mg/dL (8.5-10.1) Iron Level 9 ug/dL (50-170) Total Iron Binding Capacity 153 ug/dL (250-450) Iron Saturation 6 % (15-34) Glucose (Fingerstick) 113 mg/dL (70-99) NELI AMOR MD Aug 23, 2017 08:26
[2017-08-23] MEDS: CARVEDILOL 6.25 MG TABLET. PO SCH ×2 (08:51→18:18)
[2017-08-23] MEDS: ISOSORBIDE MONONITRATE ER 30 MG TAB.ER.24H PO SCH (08:52)
[2017-08-23] MEDS: PRASUGREL 10 MG TABLET. PO SCH (08:52)
[2017-08-23] MEDS: SODIUM BICARBONATE 650 MG TABLET. PO SCH ×2 (08:52→20:21)
[2017-08-23] MEDS: CITALOPRAM 20 MG TABLET. PO SCH (08:52)
[2017-08-23] MEDS: ERGOCALCIFEROL (VITAMIN D2) 50,000 UNIT CAPSULE. PO SCH (08:53)
[2017-08-23] MEDS: hydrALAZINE 25 MG TABLET PO SCH ×3 (08:53→20:20)
[2017-08-23] MEDS: FAMOTIDINE 20 MG TABLET. PO SCH (08:53)
[2017-08-23] MEDS: LISINOPRIL 40 MG TABLET. PO SCH ×2 (08:53→20:20)
[2017-08-23] MEDS: ASPIRIN CHEWABLE 81 MG TABLET. PO SCH (08:53)
[2017-08-23] MEDS: SPIRONOLACTONE 25 MG TABLET PO SCH (08:53)
[2017-08-23 10:30] VITALS: BP 107/51
--- NOTE | 2017-08-23 11:57 | PDOC ---
Renal-Progress Notes Subjective Notes Notes NO CHANGE History of Present Illness Hx of present illness STABLE Vitals Vitals Vital Signs Date Time Temp Pulse Resp B/P (MAP) Pulse Ox O2 Delivery O2 Flow Rate FiO2 08/23/17 11:52 Nasal Cannula 3.0 08/23/17 10:30 98.1 61 20 107/51 (69) 93 98.1 Weight Weight [ ] I.O. Intake and Output Intake and Output 08/23/17 07:00 Intake Total 880 ml Output Total 2050 ml Balance -1170 ml Intake Oral 880 ml Output Urine Total 2050 ml Labs Labs Laboratory Tests Test 08/22/17 12:02 08/22/17 16:50 08/22/17 21:06 08/23/17 04:55 Glucose (Fingerstick) 242 mg/dL (70-99) 212 mg/dL (70-99) 181 mg/dL (70-99) White Blood Count 12.8 x10^3/uL (4.0-11.0) Red Blood Count 2.74 x10^6/uL (3.50-5.40) Hemoglobin 8.3 g/dL (12.0-15.5) Hematocrit 25.8 % (36.0-47.0) Mean Corpuscular Volume 94 fL (79-100) Mean Corpuscular Hemoglobin 30 pg (25-35) Mean Corpuscular Hemoglobin Concent 32 g/dL (31-37) Red Cell Distribution Width 15.1 % (11.5-14.5) Platelet Count 130 x10^3/uL (140-400) Sodium Level 137 mmol/L (136-145) Potassium Level 3.5 mmol/L (3.5-5.1) Chloride Level 104 mmol/L (98-107) Carbon Dioxide Level 24 mmol/L (21-32) Anion Gap 9 (6-14) Blood Urea Nitrogen 79 mg/dL (7-20) Creatinine 3.6 mg/dL (0.6-1.0) Estimated GFR (Cockcroft-Gault) 12.7 Glucose Level 128 mg/dL (70-99) Calcium Level 7.9 mg/dL (8.5-10.1) Iron Level 9 ug/dL (50-170) Total Iron Binding Capacity 153 ug/dL (250-450) Iron Saturation 6 % (15-34) Test 08/23/17 07:12 Glucose (Fingerstick) 113 mg/dL (70-99) Review of Systems Constitutional: yes: alert, oriented Ears/Nose/Throat: Yes: no symptom reported Pulmonary: Yes dyspnea Cardiovascular: Yes edema Gastrointestional: Yes: no symptom reported Musculoskeletal: Yes: no symptom reported Skin: Yes no symptom reported Psychiatric/Neurological: Yes: no symptom reported Physical Exam General Appearance: no apparent distress Skin: warm Respiratory: decreased breath sounds Heart: S1S2 Abdomen: soft, bowel sounds present Genitourinary: bladder flat Extremities: pulses present Neurology: alert, oriented Assessment Assessment IMP CKD STAGE 4-CR 3.6 EDEMA CHF ANEMIA IRON DEFICIENCY HTN PLAN START IRON CONT IV LASIX CONT JOJO-I 24 HR URINE PENDING KAYLAH ROSADO MD Aug 23, 2017 11:57
--- NOTE | 2017-08-23 13:09 | PDOC ---
PULMONARY PROGRESS NOTES Subjective less soa Vitals Vital Signs Date Time Temp Pulse Resp B/P (MAP) Pulse Ox O2 Delivery O2 Flow Rate FiO2 08/23/17 11:52 Nasal Cannula 3.0 08/23/17 10:30 98.1 61 20 107/51 (69) 93 98.1 General: Alert, No acute distress HEENT: Other Lungs: Wheezing (faint) Cardiovascular: S1, S2 Abdomen: Soft, Non-tender, Other Extremities: Other (2+edema) Labs Laboratory Tests Test 08/21/17 20:06 08/21/17 20:18 08/21/17 20:20 08/22/17 02:00 Glucose (Fingerstick) 268 mg/dL (70-99) O2 Saturation 95 % (92-99) Arterial Blood pH 7.35 (7.35-7.45) Arterial Blood pCO2 at Patient Temp 35 mmHg (35-46) Arterial Blood pO2 at Patient Temp 78 mmHg (65-108) Arterial Blood HCO3 19 mmol/L (21-28) Arterial Blood Base Excess -6 mmol/L (-3-3) FiO2 32.0 White Blood Count 15.0 x10^3/uL (4.0-11.0) Red Blood Count 3.25 x10^6/uL (3.50-5.40) Hemoglobin 10.0 g/dL (12.0-15.5) Hematocrit 30.8 % (36.0-47.0) Mean Corpuscular Volume 95 fL (79-100) Mean Corpuscular Hemoglobin 31 pg (25-35) Mean Corpuscular Hemoglobin Concent 33 g/dL (31-37) Red Cell Distribution Width 14.9 % (11.5-14.5) Platelet Count 181 x10^3/uL (140-400) Neutrophils (%) (Auto) 85 % (31-73) Lymphocytes (%) (Auto) 7 % (24-48) Monocytes (%) (Auto) 8 % (0-9) Eosinophils (%) (Auto) 1 % (0-3) Basophils (%) (Auto) 1 % (0-3) Neutrophils # (Auto) 12.7 x10^3uL (1.8-7.7) Lymphocytes # (Auto) 1.0 x10^3/uL (1.0-4.8) Monocytes # (Auto) 1.2 x10^3/uL (0.0-1.1) Eosinophils # (Auto) 0.1 x10^3/uL (0.0-0.7) Basophils # (Auto) 0.1 x10^3/uL (0.0-0.2) Segmented Neutrophils % 80 % (35-66) Lymphocytes % 9 % (24-48) Monocytes % 9 % (0-10) Eosinophils % 2 % (0-5) Platelet Estimate Adequate (ADEQUATE) Sodium Level 135 mmol/L (136-145) Potassium Level 3.7 mmol/L (3.5-5.1) Chloride Level 101 mmol/L (98-107) Carbon Dioxide Level 22 mmol/L (21-32) Anion Gap 12 (6-14) Blood Urea Nitrogen 76 mg/dL (7-20) Creatinine 3.4 mg/dL (0.6-1.0) Estimated GFR (Cockcroft-Gault) 13.6 BUN/Creatinine Ratio 22 (6-20) Glucose Level 266 mg/dL (70-99) Calcium Level 7.9 mg/dL (8.5-10.1) Magnesium Level 1.8 mg/dL (1.8-2.4) Total Bilirubin 0.5 mg/dL (0.2-1.0) Aspartate Amino Transf (AST/SGOT) 22 U/L (15-37) Alanine Aminotransferase (ALT/SGPT) 30 U/L (14-59) Alkaline Phosphatase 87 U/L (46-116) Creatine Kinase 50 U/L (26-192) Creatine Kinase MB (Mass) 1.3 ng/mL (0.0-3.6) Creatine Kinase MB Relative Index 2.6 % (0-4) Troponin I Quantitative 0.277 ng/mL (0.000-0.055) 0.341 ng/mL (0.000-0.055) JY-Hzo-G-Type Natriuretic Peptide 000764 pg/mL (0-124) Total Protein 6.6 g/dL (6.4-8.2) Albumin 2.7 g/dL (3.4-5.0) Albumin/Globulin Ratio 0.7 (1.0-1.7) Test 08/22/17 05:15 08/22/17 07:43 08/22/17 10:56 08/22/17 12:02 White Blood Count 12.6 x10^3/uL (4.0-11.0) Red Blood Count 3.00 x10^6/uL (3.50-5.40) Hemoglobin 9.1 g/dL (12.0-15.5) Hematocrit 28.5 % (36.0-47.0) Mean Corpuscular Volume 95 fL (79-100) Mean Corpuscular Hemoglobin 30 pg (25-35) Mean Corpuscular Hemoglobin Concent 32 g/dL (31-37) Red Cell Distribution Width 15.1 % (11.5-14.5) Platelet Count 130 x10^3/uL (140-400) Neutrophils (%) (Auto) 80 % (31-73) Lymphocytes (%) (Auto) 10 % (24-48) Monocytes (%) (Auto) 9 % (0-9) Eosinophils (%) (Auto) 1 % (0-3) Basophils (%) (Auto) 0 % (0-3) Neutrophils # (Auto) 10.1 x10^3uL (1.8-7.7) Lymphocytes # (Auto) 1.3 x10^3/uL (1.0-4.8) Monocytes # (Auto) 1.1 x10^3/uL (0.0-1.1) Eosinophils # (Auto) 0.1 x10^3/uL (0.0-0.7) Basophils # (Auto) 0.1 x10^3/uL (0.0-0.2) Sodium Level 139 mmol/L (136-145) Potassium Level 3.4 mmol/L (3.5-5.1) Chloride Level 106 mmol/L (98-107) Carbon Dioxide Level 21 mmol/L (21-32) Anion Gap 12 (6-14) Blood Urea Nitrogen 73 mg/dL (7-20) Creatinine 3.4 mg/dL (0.6-1.0) Estimated GFR (Cockcroft-Gault) 13.6 Glucose Level 190 mg/dL (70-99) Calcium Level 8.0 mg/dL (8.5-10.1) Troponin I Quantitative 0.351 ng/mL (0.000-0.055) 0.247 ng/mL (0.000-0.055) Glucose (Fingerstick) 186 mg/dL (70-99) 242 mg/dL (70-99) Test 08/22/17 16:50 08/22/17 21:06 08/23/17 04:55 08/23/17 07:12 Glucose (Fingerstick) 212 mg/dL (70-99) 181 mg/dL (70-99) 113 mg/dL (70-99) White Blood Count 12.8 x10^3/uL (4.0-11.0) Red Blood Count 2.74 x10^6/uL (3.50-5.40) Hemoglobin 8.3 g/dL (12.0-15.5) Hematocrit 25.8 % (36.0-47.0) Mean Corpuscular Volume 94 fL (79-100) Mean Corpuscular Hemoglobin 30 pg (25-35) Mean Corpuscular Hemoglobin Concent 32 g/dL (31-37) Red Cell Distribution Width 15.1 % (11.5-14.5) Platelet Count 130 x10^3/uL (140-400) Sodium Level 137 mmol/L (136-145) Potassium Level 3.5 mmol/L (3.5-5.1) Chloride Level 104 mmol/L (98-107) Carbon Dioxide Level 24 mmol/L (21-32) Anion Gap 9 (6-14) Blood Urea Nitrogen 79 mg/dL (7-20) Creatinine 3.6 mg/dL (0.6-1.0) Estimated GFR (Cockcroft-Gault) 12.7 Glucose Level 128 mg/dL (70-99) Calcium Level 7.9 mg/dL (8.5-10.1) Iron Level 9 ug/dL (50-170) Total Iron Binding Capacity 153 ug/dL (250-450) Iron Saturation 6 % (15-34) Test 08/23/17 12:13 Glucose (Fingerstick) 112 mg/dL (70-99) Laboratory Tests Test 08/22/17 16:50 08/22/17 21:06 08/23/17 04:55 08/23/17 07:12 Glucose (Fingerstick) 212 mg/dL (70-99) 181 mg/dL (70-99) 113 mg/dL (70-99) White Blood Count 12.8 x10^3/uL (4.0-11.0) Red Blood Count 2.74 x10^6/uL (3.50-5.40) Hemoglobin 8.3 g/dL (12.0-15.5) Hematocrit 25.8 % (36.0-47.0) Mean Corpuscular Volume 94 fL (79-100) Mean Corpuscular Hemoglobin 30 pg (25-35) Mean Corpuscular Hemoglobin Concent 32 g/dL (31-37) Red Cell Distribution Width 15.1 % (11.5-14.5) Platelet Count 130 x10^3/uL (140-400) Sodium Level 137 mmol/L (136-145) Potassium Level 3.5 mmol/L (3.5-5.1) Chloride Level 104 mmol/L (98-107) Carbon Dioxide Level 24 mmol/L (21-32) Anion Gap 9 (6-14) Blood Urea Nitrogen 79 mg/dL (7-20) Creatinine 3.6 mg/dL (0.6-1.0) Estimated GFR (Cockcroft-Gault) 12.7 Glucose Level 128 mg/dL (70-99) Calcium Level 7.9 mg/dL (8.5-10.1) Iron Level 9 ug/dL (50-170) Total Iron Binding Capacity 153 ug/dL (250-450) Iron Saturation 6 % (15-34) Test 08/23/17 12:13 Glucose (Fingerstick) 112 mg/dL (70-99) Medications Active Scripts Medications Dose Route/Sig Max Daily Dose Days Date Category Levothyroxine Sodium 150 Mcg Tablet 150 Mcg PO DAILYAC 08/21/17 Reported Lantus Solostar (Insulin Glargine,Hum.rec.anlog) 100 Unit/1 Ml Insuln.pen 3 Unit SQ HS 08/21/17 Reported Famotidine 20 Mg Tablet 20 Mg PO BID 08/21/17 Reported Effient (Prasugrel Hcl) 10 Mg Tablet 10 Mg PO DAILY 08/21/17 Reported Lisinopril 40 Mg Tablet 40 Mg PO BID 08/21/17 Reported Furosemide 40 Mg Tablet 40 Mg PO DAILY 30 05/20/17 Rx Sodium Bicarbonate 325 Mg Tablet 10 Gr PO BID 12/28/16 Reported Aspirin 81 Mg Tab.chew 1 Tab PO DAILY 12/28/16 Reported Aldactone (Spironolactone) 25 Mg Tablet 25 Mg PO DAILY 09/05/16 Rx Isosorbide Mononitrate Er (Isosorbide Mononitrate) 30 Mg Tab.er.24h 60 Mg PO DAILY 09/05/16 Rx Hydralazine Hcl 25 Mg Tablet 25 Mg PO TID 09/05/16 Rx Carvedilol 6.25 Mg Tablet 6.25 Mg PO BIDWMEALS 09/05/16 Rx Atorvastatin Calcium 10 Mg Tablet 10 Mg PO QHS 09/05/16 Rx Albuterol Sulfate Neb Soln (Albuterol Sulfate) 2.5 Mg/3 Ml Vial.neb 2.5 Mg NEB RTQID 08/26/15 Rx Novolog Flexpen (Insulin Aspart) 100 Unit/1 Ml Insuln.pen 5 Unit SQ TIDWMEALS 08/21/15 Reported Celexa (Citalopram Hydrobromide) 20 Mg Tablet 20 Mg PO DAILY 05/20/14 Reported Vitamin D2 (Ergocalciferol (Vitamin D2)) 50,000 Unit Capsule 50,000 Unit PO WEEKLY 05/20/14 Reported Impression . 1. Acute on chronic systolic heart failure presenting as increasing dyspnea and right lower extremity edema along with interstitial infiltrates on the chest x-ray. 2. Underlying severe cardiomyopathy with an EF of 25%. 3. Acute on chronic renal failure. 4. Underlying chronic obstructive pulmonary disease. Smoked for 45-50 years, unknown FEV1. 5. Chronic hypoxic respiratory failure, on home oxygen 2-3 liters, but now requiring 4 liters. Plan . 1. Continue with present oxygen. 2. Continue with IV Lasix. It will be a challenge to diurese her aggressively due to her worsening renal failure. I suspect that she may be nearing hemodialysis. She has poor pump function due to her cardiomyopathy and resulting in poor perfusion to the kidneys.Consider IV Dobutamine 3. Monitor renal function. 4. P.r.n. bicarbonate. 5. Continue bronchodilators. 6. PFTs as an outpatient. 7. repeat cxr in am Discuss with ANGY MEZA MD Aug 23, 2017 13:09
--- NOTE | 2017-08-23 13:49 | PDOC ---
SAM SEARS [employer]DER 08/23/17 1349: CARDIO Progress Notes Date and Time Date of Service 08/23/2017 Time of Evaluation 1310 Subjective Subjective: No Chest Pain, No shortness of breath, No Palpitations, Other ( laying flat without SOA or any discomfort) Vitals Vitals Vital Signs Date Time Temp Pulse Resp B/P (MAP) Pulse Ox O2 Delivery O2 Flow Rate FiO2 08/23/17 11:52 Nasal Cannula 3.0 08/23/17 10:30 98.1 61 20 107/51 (69) 93 98.1 Weight Weight [ ] Input and Output Intake and Output Intake and Output 08/23/17 07:00 Intake Total 880 ml Output Total 2050 ml Balance -1170 ml Intake Oral 880 ml Output Urine Total 2050 ml Laboratory Labs Laboratory Tests Test 08/22/17 16:50 08/22/17 21:06 08/23/17 04:55 08/23/17 07:12 Glucose (Fingerstick) 212 mg/dL (70-99) 181 mg/dL (70-99) 113 mg/dL (70-99) White Blood Count 12.8 x10^3/uL (4.0-11.0) Red Blood Count 2.74 x10^6/uL (3.50-5.40) Hemoglobin 8.3 g/dL (12.0-15.5) Hematocrit 25.8 % (36.0-47.0) Mean Corpuscular Volume 94 fL (79-100) Mean Corpuscular Hemoglobin 30 pg (25-35) Mean Corpuscular Hemoglobin Concent 32 g/dL (31-37) Red Cell Distribution Width 15.1 % (11.5-14.5) Platelet Count 130 x10^3/uL (140-400) Sodium Level 137 mmol/L (136-145) Potassium Level 3.5 mmol/L (3.5-5.1) Chloride Level 104 mmol/L (98-107) Carbon Dioxide Level 24 mmol/L (21-32) Anion Gap 9 (6-14) Blood Urea Nitrogen 79 mg/dL (7-20) Creatinine 3.6 mg/dL (0.6-1.0) Estimated GFR (Cockcroft-Gault) 12.7 Glucose Level 128 mg/dL (70-99) Calcium Level 7.9 mg/dL (8.5-10.1) Iron Level 9 ug/dL (50-170) Total Iron Binding Capacity 153 ug/dL (250-450) Iron Saturation 6 % (15-34) Test 08/23/17 12:13 Glucose (Fingerstick) 112 mg/dL (70-99) Review of Systems Constitutional: yes: alert, oriented Ears/Nose/Throat: Yes: no symptom reported Pulmonary: Yes dyspnea Cardiovascular: Yes edema Gastrointestional: Yes: no symptom reported Musculoskeletal: Yes: no symptom reported Skin: Yes no symptom reported Psychiatric/Neurological: Yes: no symptom reported Physical Exam HEENT: Neck Supple W Full Motion Chest: Symmetric LUNGS: Other (faint basilar crackles) Heart: S1S2, RRR (SR) Abdomen: Soft N/T Extremities: Other (LBKA, 2+ RLE pitting edema) Neurology: alert, oriented, follow commands Assessment Assessment 1. Acute on chronic systolic CHF: appears better today 2. CARMEN on CKD4-5/ uremic: nephrology following 3. ICM: Last EF at 25% 4. AICD in situ: (Biotronik). DDD. Normal function, no significant arrhythmias. Presently SR with intermittent pacing. 5. CAD. PCI/BMS to ramus as noted above. Stable. 6. Accelerated HTN: controlled 6. Elevated troponin: peaked at 0.35 CP free. No acute EKG changes. Type 2. 7. DM2: suspecting hypoglycemic episodes at night. 8. COPD: O2 dependent 9. Noncompliance: reports due to lack of funds. Recommendations 1. Continue with current regimen. DAPT 2. Lasix therapy. Possible future HD. Defer to nephrology 3. Continue with optimization and secondary prevention. Again discussed treatment compliance LAURA RIVERA MD 08/23/17 1726: CARDIO Progress Notes Plan Plan Patient seen and examined. Agree with above nurse practitioner note. Continue current medical therapy. SAM SEARS APRN Aug 23, 2017 13:49 LAURA RIVERA MD Aug 23, 2017 17:26
[2017-08-23 14:25] VITALS: BP 94/52
[2017-08-23 19:40] VITALS: BP 105/41
[2017-08-23] MEDS: ATORVASTATIN CALCIUM 10 MG TABLET. PO SCH (20:20)
[2017-08-23 23:45] VITALS: BP 101/38
[2017-08-24 03:38] VITALS: BP 110/52
[2017-08-24] MEDS: LEVOTHYROXINE 150 MCG TABLET PO SCH (05:14)
[2017-08-24] MEDS: FUROSEMIDE 40 MG/4 ML VIAL. IVP SCH ×3 (05:14→20:58)
[2017-08-24 05:51] LABS: BASO % 0 % (0-3); EOS % 2 % (0-3); HEMOGLOBIN 8.3 g/dL (12.0-15.5); LYMPH # 0.8 x10^3/uL (1.0-4.8); LYMPH % 6 % (24-48); MEAN CORPUSCULAR HEMOGLOBIN 31 pg (25-35); MEAN CORPUSCULAR HGB CONC 32 g/dL (31-37); MEAN CORPUSCULAR VOLUME 96 fL (79-100); MONO % 9 % (0-9); NEUT % 83 % (31-73); PLATELET COUNT 127 x10^3/uL (140-400); RED BLOOD COUNT 2.71 x10^6/uL (3.50-5.40); RED CELL DISTRIBUTION WIDTH 15.4 % (11.5-14.5)
[2017-08-24 06:05] LABS: CREATININE 4.3 mg/dL (0.6-1.0); GFR 10.3; POTASSIUM 3.9 mmol/L (3.5-5.1)
[2017-08-24 07:00] VITALS: BP 123/45
[2017-08-24] MEDS: ALBUTEROL SULFATE 2.5 MG/3 ML NEBU. NEB SCH ×4 (07:41→19:20)
[2017-08-24] MEDS: INSULIN ASPART 300 UNITS/3 ML INSULN.PEN SQ SCH ×6 (08:00→18:20)
--- NOTE | 2017-08-24 08:05 | PDOC ---
SUBJECTIVE Subjective Pt feeling better this morning. Breathing and swelling continues to improve. Pt doesn't feel quite ready to go home. OBJECTIVE Vital Signs Vital Signs Date Time Temp Pulse Resp B/P (MAP) Pulse Ox O2 Delivery O2 Flow Rate FiO2 08/24/17 07:43 97 Nasal Cannula 4.0 08/24/17 03:38 98.1 63 22 110/52 (71) 95 Nasal Cannula 4.0 98.1 08/23/17 23:45 98.2 58 24 101/38 (59) 99 Nasal Cannula 4.0 98.2 08/23/17 20:26 96 Nasal Cannula 3.0 08/23/17 20:20 62 105/41 08/23/17 20:20 62 105/41 08/23/17 20:00 Nasal Cannula 3.0 08/23/17 19:40 97.5 62 21 105/41 (62) 94 Nasal Cannula 4.0 97.5 08/23/17 18:18 63 123/57 08/23/17 15:53 Nasal Cannula 3.0 08/23/17 14:25 97.9 59 20 94/52 (66) 97 Nasal Cannula 4.0 97.9 08/23/17 14:00 57 97/52 08/23/17 11:52 Nasal Cannula 3.0 08/23/17 10:30 98.1 61 20 107/51 (69) 93 Nasal Cannula 4.0 98.1 08/23/17 08:53 62 123/58 08/23/17 08:53 62 123/58 08/23/17 08:52 60 123/58 08/23/17 08:51 62 123/58 08/23/17 08:15 Nasal Cannula 3.0 I & O Intake and Output 08/24/17 07:00 Intake Total 860 ml Output Total 750 ml Balance 110 ml Intake Oral 860 ml Output Urine Total 750 ml PHYSICAL EXAM Physical Exam General: Alert, Oriented X3, Cooperative, No acute distress HEENT: Atraumatic, PERRLA, EOMI, Mucous membr. moist/pink Lungs: CTAB, regular breathing rate and effort Heart: RRR, no rubs, no gallops, no murmurs Abdomen: Normal bowel sounds, Soft, No tenderness, No hepatosplenomegaly Extremities: No clubbing, No cyanosis, Other (1+ pitting edema RLE, left BKA) Skin: No rashes, No significant lesion Neuro: Normal tone, Sensation intact, Cranial nerves 3-12 NL Psych/Mental Status: Mental status NL, Mood NL ASSESSMENT/PLAN Assessment/Plan Pt is a 67yo CF admitted for acute on chronic respiratory failure 2/2 CHF exacerbation 1)Acute on chronic respiratory failure- improving 2)CHF Exacerbation- improving with IV diuresis. Pt not quite back to baseline. Cardiology following, receiving Lasix 40mg IV q8H 3)HTN- well controlled. Will continue pt's Imdur 60mg ER, Norvasc 10mg, Hydralazine 25mg TID< Lisinopril 40mg, Carvedilol 6.25mg BID, Spironolactone 25mg 4)GERD- pt continued on Famotidine 5)CKD- Stage 4, Cr worsening from diuretics. Renal following, continue NaHCO3 6)DM2- previously well controlled. Fasting BS this morning WNL. Pt's Lantus was DC'd during her last visit because of hypoglycemia. Continued on Novolog 5 units QAC and has SSI available (received 2 units over last 24hours) 7)COPD- pt continued on Albuterol as needed 8)HLD- pt continued on Atorvastatin 10mg 9)Hypothyroidism- moderately controlled. TSH 07/10 was mildly elevated. Continue Levothyroxine 150mcg 10)PEM- mild 11)Elevated troponin- mildly elevated troponin likely 2/2 CHF exacerbation and CKD. Pt denies chest pain; trending down. 12)Anemia- mildly worsening but stable. No active bleeding. Problems: COMMENT Lab Laboratory Tests Test 08/23/17 12:13 08/23/17 16:46 08/23/17 20:45 08/24/17 04:25 Glucose (Fingerstick) 112 mg/dL (70-99) 162 mg/dL (70-99) 172 mg/dL (70-99) White Blood Count 13.0 x10^3/uL (4.0-11.0) Red Blood Count 2.71 x10^6/uL (3.50-5.40) Hemoglobin 8.3 g/dL (12.0-15.5) Hematocrit 26.0 % (36.0-47.0) Mean Corpuscular Volume 96 fL (79-100) Mean Corpuscular Hemoglobin 31 pg (25-35) Mean Corpuscular Hemoglobin Concent 32 g/dL (31-37) Red Cell Distribution Width 15.4 % (11.5-14.5) Platelet Count 127 x10^3/uL (140-400) Neutrophils (%) (Auto) 83 % (31-73) Lymphocytes (%) (Auto) 6 % (24-48) Monocytes (%) (Auto) 9 % (0-9) Eosinophils (%) (Auto) 2 % (0-3) Basophils (%) (Auto) 0 % (0-3) Neutrophils # (Auto) 10.8 x10^3uL (1.8-7.7) Lymphocytes # (Auto) 0.8 x10^3/uL (1.0-4.8) Monocytes # (Auto) 1.2 x10^3/uL (0.0-1.1) Eosinophils # (Auto) 0.2 x10^3/uL (0.0-0.7) Basophils # (Auto) 0.0 x10^3/uL (0.0-0.2) Sodium Level 137 mmol/L (136-145) Potassium Level 3.9 mmol/L (3.5-5.1) Chloride Level 103 mmol/L (98-107) Carbon Dioxide Level 23 mmol/L (21-32) Anion Gap 11 (6-14) Blood Urea Nitrogen 85 mg/dL (7-20) Creatinine 4.3 mg/dL (0.6-1.0) Estimated GFR (Cockcroft-Gault) 10.3 Glucose Level 128 mg/dL (70-99) Calcium Level 8.0 mg/dL (8.5-10.1) NELI AMOR MD Aug 24, 2017 08:05
--- NOTE | 2017-08-24 08:27 | RAD ---
Portable chest,, 08/24/2017: History: Congestive heart failure Comparison is made to a study from 08/21/2017. A left-sided transvenous pacemaker remains in place. The heart is enlarged. The pulmonary vascularity is less clearly defined. There is now mild prominence of the minor fissure. The left basilar opacity has worsened again compatible with pleural fluid and underlying atelectasis/infiltrate. A density in the right lateral costophrenic angle has developed compatible with pleural fluid. IMPRESSION: Worsening congestive heart failure with increasing left basilar opacities and interval development of a small right pleural effusion.
[2017-08-24] MEDS: PRASUGREL 10 MG TABLET. PO SCH (08:28)
[2017-08-24] MEDS: FAMOTIDINE 20 MG TABLET. PO SCH (08:28)
[2017-08-24] MEDS: CARVEDILOL 6.25 MG TABLET. PO SCH ×2 (08:28→17:00)
[2017-08-24] MEDS: SPIRONOLACTONE 25 MG TABLET PO SCH (08:29)
[2017-08-24] MEDS: ASPIRIN CHEWABLE 81 MG TABLET. PO SCH (08:29)
[2017-08-24] MEDS: CITALOPRAM 20 MG TABLET. PO SCH (08:29)
[2017-08-24] MEDS: hydrALAZINE 25 MG TABLET PO SCH ×3 (08:29→20:57)
[2017-08-24] MEDS: ISOSORBIDE MONONITRATE ER 30 MG TAB.ER.24H PO SCH (08:30)
[2017-08-24] MEDS: SODIUM BICARBONATE 650 MG TABLET. PO SCH ×2 (08:30→20:56)
[2017-08-24] MEDS: LISINOPRIL 40 MG TABLET. PO SCH ×2 (09:00→20:57)
[2017-08-24 11:00] VITALS: BP 95/45
--- NOTE | 2017-08-24 11:48 | PDOC ---
Renal-Progress Notes Subjective Notes Notes STILL HAS SOME SOB History of Present Illness Hx of present illness STABLE Vitals Vitals Vital Signs Date Time Temp Pulse Resp B/P (MAP) Pulse Ox O2 Delivery O2 Flow Rate FiO2 08/24/17 11:00 98.5 58 20 95/45 (62) 96 Nasal Cannula 4.0 98.5 Weight Weight [ ] I.O. Intake and Output Intake and Output 08/24/17 07:00 Intake Total 860 ml Output Total 750 ml Balance 110 ml Intake Oral 860 ml Output Urine Total 750 ml Labs Labs Laboratory Tests Test 08/23/17 12:13 08/23/17 16:46 08/23/17 20:45 08/24/17 04:25 Glucose (Fingerstick) 112 mg/dL (70-99) 162 mg/dL (70-99) 172 mg/dL (70-99) White Blood Count 13.0 x10^3/uL (4.0-11.0) Red Blood Count 2.71 x10^6/uL (3.50-5.40) Hemoglobin 8.3 g/dL (12.0-15.5) Hematocrit 26.0 % (36.0-47.0) Mean Corpuscular Volume 96 fL (79-100) Mean Corpuscular Hemoglobin 31 pg (25-35) Mean Corpuscular Hemoglobin Concent 32 g/dL (31-37) Red Cell Distribution Width 15.4 % (11.5-14.5) Platelet Count 127 x10^3/uL (140-400) Neutrophils (%) (Auto) 83 % (31-73) Lymphocytes (%) (Auto) 6 % (24-48) Monocytes (%) (Auto) 9 % (0-9) Eosinophils (%) (Auto) 2 % (0-3) Basophils (%) (Auto) 0 % (0-3) Neutrophils # (Auto) 10.8 x10^3uL (1.8-7.7) Lymphocytes # (Auto) 0.8 x10^3/uL (1.0-4.8) Monocytes # (Auto) 1.2 x10^3/uL (0.0-1.1) Eosinophils # (Auto) 0.2 x10^3/uL (0.0-0.7) Basophils # (Auto) 0.0 x10^3/uL (0.0-0.2) Sodium Level 137 mmol/L (136-145) Potassium Level 3.9 mmol/L (3.5-5.1) Chloride Level 103 mmol/L (98-107) Carbon Dioxide Level 23 mmol/L (21-32) Anion Gap 11 (6-14) Blood Urea Nitrogen 85 mg/dL (7-20) Creatinine 4.3 mg/dL (0.6-1.0) Estimated GFR (Cockcroft-Gault) 10.3 Glucose Level 128 mg/dL (70-99) Calcium Level 8.0 mg/dL (8.5-10.1) Test 08/24/17 07:23 Glucose (Fingerstick) 131 mg/dL (70-99) Review of Systems Constitutional: yes: alert, oriented Ears/Nose/Throat: Yes: no symptom reported Pulmonary: Yes dyspnea Cardiovascular: Yes edema Gastrointestional: Yes: no symptom reported Musculoskeletal: Yes: no symptom reported Skin: Yes no symptom reported Psychiatric/Neurological: Yes: no symptom reported Physical Exam General Appearance: no apparent distress Skin: warm Respiratory: decreased breath sounds Heart: S1S2 Abdomen: soft, bowel sounds present Genitourinary: bladder flat Extremities: pulses present Neurology: alert, oriented, follow commands Assessment Assessment IMP CKD STAGE 4-CR 3.6 CARMEN WITH CR UP TO 4.3 WITH LASIX EDEMA CHF ANEMIA IRON DEFICIENCY HTN PLAN CONT IRON AND ARANESP CONT IV LASIX STILL HAS EDEMA AND VOLUME OVERLOAD CONT JOJO-I 24 HR URINE PENDING MAY NEED TO START DIALYSIS SOON D/W PT - SHE AGREES KAYLAH ROSADO MD Aug 24, 2017 11:48
--- NOTE | 2017-08-24 13:36 | PDOC ---
PULMONARY PROGRESS NOTES Subjective less soa Vitals Vital Signs Date Time Temp Pulse Resp B/P (MAP) Pulse Ox O2 Delivery O2 Flow Rate FiO2 08/24/17 11:00 98.5 58 20 95/45 (62) 96 Nasal Cannula 4.0 98.5 General: Alert, No acute distress HEENT: Other Lungs: Wheezing (resolved) Cardiovascular: S1, S2 Abdomen: Soft, Non-tender, Other Extremities: Other (2+edema) Labs Laboratory Tests Test 08/22/17 16:50 08/22/17 21:06 08/23/17 04:55 08/23/17 07:12 Glucose (Fingerstick) 212 mg/dL (70-99) 181 mg/dL (70-99) 113 mg/dL (70-99) White Blood Count 12.8 x10^3/uL (4.0-11.0) Red Blood Count 2.74 x10^6/uL (3.50-5.40) Hemoglobin 8.3 g/dL (12.0-15.5) Hematocrit 25.8 % (36.0-47.0) Mean Corpuscular Volume 94 fL (79-100) Mean Corpuscular Hemoglobin 30 pg (25-35) Mean Corpuscular Hemoglobin Concent 32 g/dL (31-37) Red Cell Distribution Width 15.1 % (11.5-14.5) Platelet Count 130 x10^3/uL (140-400) Sodium Level 137 mmol/L (136-145) Potassium Level 3.5 mmol/L (3.5-5.1) Chloride Level 104 mmol/L (98-107) Carbon Dioxide Level 24 mmol/L (21-32) Anion Gap 9 (6-14) Blood Urea Nitrogen 79 mg/dL (7-20) Creatinine 3.6 mg/dL (0.6-1.0) Estimated GFR (Cockcroft-Gault) 12.7 Glucose Level 128 mg/dL (70-99) Calcium Level 7.9 mg/dL (8.5-10.1) Iron Level 9 ug/dL (50-170) Total Iron Binding Capacity 153 ug/dL (250-450) Iron Saturation 6 % (15-34) Test 08/23/17 12:13 08/23/17 16:46 08/23/17 20:45 08/24/17 04:25 Glucose (Fingerstick) 112 mg/dL (70-99) 162 mg/dL (70-99) 172 mg/dL (70-99) White Blood Count 13.0 x10^3/uL (4.0-11.0) Red Blood Count 2.71 x10^6/uL (3.50-5.40) Hemoglobin 8.3 g/dL (12.0-15.5) Hematocrit 26.0 % (36.0-47.0) Mean Corpuscular Volume 96 fL (79-100) Mean Corpuscular Hemoglobin 31 pg (25-35) Mean Corpuscular Hemoglobin Concent 32 g/dL (31-37) Red Cell Distribution Width 15.4 % (11.5-14.5) Platelet Count 127 x10^3/uL (140-400) Neutrophils (%) (Auto) 83 % (31-73) Lymphocytes (%) (Auto) 6 % (24-48) Monocytes (%) (Auto) 9 % (0-9) Eosinophils (%) (Auto) 2 % (0-3) Basophils (%) (Auto) 0 % (0-3) Neutrophils # (Auto) 10.8 x10^3uL (1.8-7.7) Lymphocytes # (Auto) 0.8 x10^3/uL (1.0-4.8) Monocytes # (Auto) 1.2 x10^3/uL (0.0-1.1) Eosinophils # (Auto) 0.2 x10^3/uL (0.0-0.7) Basophils # (Auto) 0.0 x10^3/uL (0.0-0.2) Sodium Level 137 mmol/L (136-145) Potassium Level 3.9 mmol/L (3.5-5.1) Chloride Level 103 mmol/L (98-107) Carbon Dioxide Level 23 mmol/L (21-32) Anion Gap 11 (6-14) Blood Urea Nitrogen 85 mg/dL (7-20) Creatinine 4.3 mg/dL (0.6-1.0) Estimated GFR (Cockcroft-Gault) 10.3 Glucose Level 128 mg/dL (70-99) Calcium Level 8.0 mg/dL (8.5-10.1) Test 08/24/17 07:23 12/1/17 11:58 Glucose (Fingerstick) 131 mg/dL (70-99) 190 mg/dL (70-99) Laboratory Tests Test 08/23/17 16:46 08/23/17 20:45 08/24/17 04:25 08/24/17 07:23 Glucose (Fingerstick) 162 mg/dL (70-99) 172 mg/dL (70-99) 131 mg/dL (70-99) White Blood Count 13.0 x10^3/uL (4.0-11.0) Red Blood Count 2.71 x10^6/uL (3.50-5.40) Hemoglobin 8.3 g/dL (12.0-15.5) Hematocrit 26.0 % (36.0-47.0) Mean Corpuscular Volume 96 fL (79-100) Mean Corpuscular Hemoglobin 31 pg (25-35) Mean Corpuscular Hemoglobin Concent 32 g/dL (31-37) Red Cell Distribution Width 15.4 % (11.5-14.5) Platelet Count 127 x10^3/uL (140-400) Neutrophils (%) (Auto) 83 % (31-73) Lymphocytes (%) (Auto) 6 % (24-48) Monocytes (%) (Auto) 9 % (0-9) Eosinophils (%) (Auto) 2 % (0-3) Basophils (%) (Auto) 0 % (0-3) Neutrophils # (Auto) 10.8 x10^3uL (1.8-7.7) Lymphocytes # (Auto) 0.8 x10^3/uL (1.0-4.8) Monocytes # (Auto) 1.2 x10^3/uL (0.0-1.1) Eosinophils # (Auto) 0.2 x10^3/uL (0.0-0.7) Basophils # (Auto) 0.0 x10^3/uL (0.0-0.2) Sodium Level 137 mmol/L (136-145) Potassium Level 3.9 mmol/L (3.5-5.1) Chloride Level 103 mmol/L (98-107) Carbon Dioxide Level 23 mmol/L (21-32) Anion Gap 11 (6-14) Blood Urea Nitrogen 85 mg/dL (7-20) Creatinine 4.3 mg/dL (0.6-1.0) Estimated GFR (Cockcroft-Gault) 10.3 Glucose Level 128 mg/dL (70-99) Calcium Level 8.0 mg/dL (8.5-10.1) Test 08/24/17 11:58 Glucose (Fingerstick) 190 mg/dL (70-99) Medications Active Scripts Medications Dose Route/Sig Max Daily Dose Days Date Category Levothyroxine Sodium 150 Mcg Tablet 150 Mcg PO DAILYAC 08/21/17 Reported Lantus Solostar (Insulin Glargine,Hum.rec.anlog) 100 Unit/1 Ml Insuln.pen 3 Unit SQ HS 08/21/17 Reported Famotidine 20 Mg Tablet 20 Mg PO BID 08/21/17 Reported Effient (Prasugrel Hcl) 10 Mg Tablet 10 Mg PO DAILY 08/21/17 Reported Lisinopril 40 Mg Tablet 40 Mg PO BID 08/21/17 Reported Furosemide 40 Mg Tablet 40 Mg PO DAILY 30 05/20/17 Rx Sodium Bicarbonate 325 Mg Tablet 10 Gr PO BID 12/28/16 Reported Aspirin 81 Mg Tab.chew 1 Tab PO DAILY 12/28/16 Reported Aldactone (Spironolactone) 25 Mg Tablet 25 Mg PO DAILY 09/05/16 Rx Isosorbide Mononitrate Er (Isosorbide Mononitrate) 30 Mg Tab.er.24h 60 Mg PO DAILY 09/05/16 Rx Hydralazine Hcl 25 Mg Tablet 25 Mg PO TID 09/05/16 Rx Carvedilol 6.25 Mg Tablet 6.25 Mg PO BIDWMEALS 09/05/16 Rx Atorvastatin Calcium 10 Mg Tablet 10 Mg PO QHS 09/05/16 Rx Albuterol Sulfate Neb Soln (Albuterol Sulfate) 2.5 Mg/3 Ml Vial.neb 2.5 Mg NEB RTQID 08/26/15 Rx Novolog Flexpen (Insulin Aspart) 100 Unit/1 Ml Insuln.pen 5 Unit SQ TIDWMEALS 08/21/15 Reported Celexa (Citalopram Hydrobromide) 20 Mg Tablet 20 Mg PO DAILY 05/20/14 Reported Vitamin D2 (Ergocalciferol (Vitamin D2)) 50,000 Unit Capsule 50,000 Unit PO WEEKLY 05/20/14 Reported Impression . 1. Acute on chronic systolic heart failure presenting as increasing dyspnea and right lower extremity edema along with interstitial infiltrates on the chest x-ray. 2. Underlying severe cardiomyopathy with an EF of 25%. 3. Acute on chronic renal failure. 4. Underlying chronic obstructive pulmonary disease. Smoked for 45-50 years, unknown FEV1. 5. Chronic hypoxic respiratory failure, on home oxygen 2-3 liters, but now requiring 4 liters. Plan . 1. Continue with present oxygen. 2. Continue with IV Lasix. It will be a challenge to diurese her aggressively due to her worsening renal failure. I suspect that she may be nearing hemodialysis. She has poor pump function due to her cardiomyopathy and resulting in poor perfusion to the kidneys.Consider IV Dobutamine 3. Monitor renal function. 4. P.r.n. bicarbonate. 5. Continue bronchodilators. 6. PFTs as an outpatient. 7. repeat cxr with increase CHF Discuss with RN.await renal recommendations for HD ANGY FONTANEZ MD Aug 24, 2017 13:36
[2017-08-24 14:50] VITALS: BP 93/43
[2017-08-24 15:25] LABS: TOTAL SERUM CREATININE 3.64 mg/dL (0.57-1.00); TOTAL URINE CREATININE 56.9 mg/dL (Not Estab.)
[2017-08-24 19:15] VITALS: BP 107/45
[2017-08-24] MEDS: ATORVASTATIN CALCIUM 10 MG TABLET. PO SCH (20:57)
[2017-08-24 23:12] VITALS: BP 101/49
[2017-08-25 03:15] VITALS: BP 95/47
[2017-08-25] MEDS: FUROSEMIDE 40 MG/4 ML VIAL. IVP SCH ×3 (05:58→20:53)
[2017-08-25 06:23] LABS: CALCIUM 7.9 mg/dL (8.5-10.1); CREATININE 5.2 mg/dL (0.6-1.0); GFR 8.3; MAGNESIUM 2.2 mg/dL (1.8-2.4); POTASSIUM 4.5 mmol/L (3.5-5.1)
[2017-08-25] MEDS: ALBUTEROL SULFATE 2.5 MG/3 ML NEBU. NEB SCH ×4 (06:30→19:13)
[2017-08-25 07:00] VITALS: BP 104/51
--- NOTE | 2017-08-25 07:39 | PDOC ---
CARDIOLOGY PROGRESS NOTE SUBJECTIVE: Feels more lethargic today. OBJECTIVE: Vital SIgns: Vital Signs Date Time Temp Pulse Resp B/P (MAP) Pulse Ox O2 Delivery O2 Flow Rate FiO2 08/25/17 06:30 95 Nasal Cannula 3.0 08/25/17 03:15 97.6 61 20 95/47 (63) 97.6 I & O Intake and Output 08/25/17 06:59 Intake Total 1680 ml Output Total 150 ml Balance 1530 ml Intake Oral 1680 ml Output Urine Total 150 ml # Bowel Movements 1 Objective: awake and oriented. lungs clear hearr regular RLE with 1+ edema. CURRENT MEDICATIONS: Current Medications Medications (Trade) Dose Ordered Sig/Slick Start Time Stop Time Status Last Admin Dose Admin Acetaminophen (Tylenol) 650 mg PRN Q4HRS PRN 08/22/17 00:00 08/22/17 23:59 DC Albuterol Sulfate (Ventolin Neb Soln) 2.5 mg RTQID 08/22/17 09:00 08/25/17 06:30 2.5 MG Albuterol/ Ipratropium (Duoneb) 3 ml RTQID 08/22/17 08:00 08/22/17 09:06 DC 08/22/17 07:18 3 ML Aspirin (Children'S Aspirin) 81 mg DAILY 08/22/17 09:00 08/24/17 08:29 81 MG Atorvastatin Calcium (Lipitor) 10 mg QHS 08/22/17 21:00 08/24/17 20:57 10 MG Carvedilol (Coreg) 6.25 mg BIDWMEALS 08/22/17 09:00 08/24/17 08:28 6.25 MG Citalopram Hydrobromide (CeleXA) 20 mg DAILY 08/22/17 09:00 08/24/17 08:29 20 MG Darbepoetin Darwin (Aranesp) 60 mcg We 08/22/17 21:00 08/22/17 21:10 60 MCG Dextrose (Dextrose 50%-Water Syringe) 12.5 gm PRN Q15MIN PRN 08/22/17 08:45 Ergocalciferol (Vitamin D2) 50,000 unit Th 08/22/17 10:00 08/23/17 08:53 50,000 UNIT Famotidine (Pepcid) 20 mg DAILY 08/22/17 09:00 08/24/17 08:28 20 MG Furosemide (Lasix) 40 mg Q8HRS 08/22/17 14:00 08/25/17 05:58 40 MG Hydralazine HCl (Apresoline) 25 mg TID 08/22/17 09:00 08/24/17 20:57 25 MG Insulin Aspart (NovoLOG) 0-5 UNITS TIDWMEALS 08/22/17 12:00 08/24/17 12:39 2 UNITS Isosorbide Mononitrate (Imdur) 60 mg DAILY 08/22/17 09:00 08/24/17 08:30 60 MG Levothyroxine Sodium (Synthroid) 150 mcg DAILY07 08/22/17 10:30 08/24/17 05:14 150 MCG Lisinopril (Prinivil) 40 mg BID 08/22/17 09:00 08/24/17 20:57 40 MG Nicardipine HCl 50 mg/Sodium Chloride 270 ml @ 25 mls/hr CONT PRN 08/21/17 20:30 08/24/17 13:02 DC 08/21/17 22:12 25 MLS/HR Ondansetron HCl (Zofran) 4 mg PRN Q8HRS PRN 08/22/17 00:00 08/22/17 23:59 DC Prasugrel (Effient) 10 mg DAILY 08/22/17 09:00 08/24/17 08:28 10 MG Sodium Bicarbonate (Sodium Bicarbonate) 325 mg BID 08/22/17 09:00 08/24/17 20:56 325 MG Sodium Chloride 1,000 ml @ 0 mls/hr Q0M 08/21/17 23:49 08/22/17 23:48 DC Spironolactone (Aldactone) 25 mg DAILY 08/22/17 09:00 08/24/17 08:29 25 MG DIAGNOSTIC TESTING: Worsening renal failure cr > 5 ASSESSMENT: 1. Acute on chronic systolic/diastolic HF 2. CARMEN - likely ESRD 3. HTN Problems: PLAN: 1. Defer lisinopril continuation to nephrology, would favor stopping it. 2. Continue coreg as tolerated 3. Would be available if [facility] may help with decision regarding HD. Thanks. Supportive care. Poor prognosis. LAURA RIVERA MD Aug 25, 2017 07:39
[2017-08-25] MEDS: CARVEDILOL 6.25 MG TABLET. PO SCH ×2 (08:00→17:00)
[2017-08-25] MEDS: LEVOTHYROXINE 150 MCG TABLET PO SCH (08:22)
[2017-08-25] MEDS: SODIUM BICARBONATE 650 MG TABLET. PO SCH ×2 (08:30→20:53)
[2017-08-25] MEDS: ASPIRIN CHEWABLE 81 MG TABLET. PO SCH (08:30)
[2017-08-25] MEDS: FAMOTIDINE 20 MG TABLET. PO SCH (08:30)
[2017-08-25] MEDS: PRASUGREL 10 MG TABLET. PO SCH (08:30)
[2017-08-25] MEDS: CITALOPRAM 20 MG TABLET. PO SCH (08:30)
[2017-08-25] MEDS: INSULIN ASPART 300 UNITS/3 ML INSULN.PEN SQ SCH ×6 (08:35→17:00)
[2017-08-25] MEDS: ISOSORBIDE MONONITRATE ER 30 MG TAB.ER.24H PO SCH (09:00)
[2017-08-25] MEDS: hydrALAZINE 25 MG TABLET PO SCH ×3 (09:00→20:57)
[2017-08-25] MEDS: SPIRONOLACTONE 25 MG TABLET PO SCH (09:00)
[2017-08-25 10:48] VITALS: BP 109/56
--- NOTE | 2017-08-25 11:13 | PDOC ---
PULMONARY PROGRESS NOTES Subjective less soa Vitals Vital Signs Date Time Temp Pulse Resp B/P (MAP) Pulse Ox O2 Delivery O2 Flow Rate FiO2 08/25/17 10:48 98.2 61 21 109/56 (73) 98 Nasal Cannula 4.0 98.2 General: Alert, No acute distress HEENT: Other Lungs: Wheezing (resolved) Cardiovascular: S1, S2 Abdomen: Soft, Non-tender, Other Extremities: Other (2+edema) Labs Laboratory Tests Test 08/23/17 12:13 08/23/17 16:46 08/23/17 20:45 08/24/17 04:25 Glucose (Fingerstick) 112 mg/dL (70-99) 162 mg/dL (70-99) 172 mg/dL (70-99) White Blood Count 13.0 x10^3/uL (4.0-11.0) Red Blood Count 2.71 x10^6/uL (3.50-5.40) Hemoglobin 8.3 g/dL (12.0-15.5) Hematocrit 26.0 % (36.0-47.0) Mean Corpuscular Volume 96 fL (79-100) Mean Corpuscular Hemoglobin 31 pg (25-35) Mean Corpuscular Hemoglobin Concent 32 g/dL (31-37) Red Cell Distribution Width 15.4 % (11.5-14.5) Platelet Count 127 x10^3/uL (140-400) Neutrophils (%) (Auto) 83 % (31-73) Lymphocytes (%) (Auto) 6 % (24-48) Monocytes (%) (Auto) 9 % (0-9) Eosinophils (%) (Auto) 2 % (0-3) Basophils (%) (Auto) 0 % (0-3) Neutrophils # (Auto) 10.8 x10^3uL (1.8-7.7) Lymphocytes # (Auto) 0.8 x10^3/uL (1.0-4.8) Monocytes # (Auto) 1.2 x10^3/uL (0.0-1.1) Eosinophils # (Auto) 0.2 x10^3/uL (0.0-0.7) Basophils # (Auto) 0.0 x10^3/uL (0.0-0.2) Sodium Level 137 mmol/L (136-145) Potassium Level 3.9 mmol/L (3.5-5.1) Chloride Level 103 mmol/L (98-107) Carbon Dioxide Level 23 mmol/L (21-32) Anion Gap 11 (6-14) Blood Urea Nitrogen 85 mg/dL (7-20) Creatinine 4.3 mg/dL (0.6-1.0) Estimated GFR (Cockcroft-Gault) 10.3 Glucose Level 128 mg/dL (70-99) Calcium Level 8.0 mg/dL (8.5-10.1) Test 08/24/17 07:23 08/24/17 11:58 08/24/17 17:11 08/24/17 20:52 Glucose (Fingerstick) 131 mg/dL (70-99) 190 mg/dL (70-99) 126 mg/dL (70-99) 175 mg/dL (70-99) Test 08/25/17 03:45 08/25/17 07:41 08/25/17 11:02 Sodium Level 136 mmol/L (136-145) Potassium Level 4.5 mmol/L (3.5-5.1) Chloride Level 101 mmol/L (98-107) Carbon Dioxide Level 21 mmol/L (21-32) Anion Gap 14 (6-14) Blood Urea Nitrogen 87 mg/dL (7-20) Creatinine 5.2 mg/dL (0.6-1.0) Estimated GFR (Cockcroft-Gault) 8.3 Glucose Level 144 mg/dL (70-99) Calcium Level 7.9 mg/dL (8.5-10.1) Magnesium Level 2.2 mg/dL (1.8-2.4) Glucose (Fingerstick) 158 mg/dL (70-99) 187 mg/dL (70-99) Laboratory Tests Test 08/24/17 11:58 08/24/17 17:11 08/24/17 20:52 08/25/17 03:45 Glucose (Fingerstick) 190 mg/dL (70-99) 126 mg/dL (70-99) 175 mg/dL (70-99) Sodium Level 136 mmol/L (136-145) Potassium Level 4.5 mmol/L (3.5-5.1) Chloride Level 101 mmol/L (98-107) Carbon Dioxide Level 21 mmol/L (21-32) Anion Gap 14 (6-14) Blood Urea Nitrogen 87 mg/dL (7-20) Creatinine 5.2 mg/dL (0.6-1.0) Estimated GFR (Cockcroft-Gault) 8.3 Glucose Level 144 mg/dL (70-99) Calcium Level 7.9 mg/dL (8.5-10.1) Magnesium Level 2.2 mg/dL (1.8-2.4) Test 08/25/17 07:41 08/25/17 11:02 Glucose (Fingerstick) 158 mg/dL (70-99) 187 mg/dL (70-99) Medications Active Scripts Medications Dose Route/Sig Max Daily Dose Days Date Category Levothyroxine Sodium 150 Mcg Tablet 150 Mcg PO DAILYAC 08/21/17 Reported Lantus Solostar (Insulin Glargine,Hum.rec.anlog) 100 Unit/1 Ml Insuln.pen 3 Unit SQ HS 08/21/17 Reported Famotidine 20 Mg Tablet 20 Mg PO BID 08/21/17 Reported Effient (Prasugrel Hcl) 10 Mg Tablet 10 Mg PO DAILY 08/21/17 Reported Lisinopril 40 Mg Tablet 40 Mg PO BID 08/21/17 Reported Furosemide 40 Mg Tablet 40 Mg PO DAILY 30 05/20/17 Rx Sodium Bicarbonate 325 Mg Tablet 10 Gr PO BID 12/28/16 Reported Aspirin 81 Mg Tab.chew 1 Tab PO DAILY 12/28/16 Reported Aldactone (Spironolactone) 25 Mg Tablet 25 Mg PO DAILY 09/05/16 Rx Isosorbide Mononitrate Er (Isosorbide Mononitrate) 30 Mg Tab.er.24h 60 Mg PO DAILY 09/05/16 Rx Hydralazine Hcl 25 Mg Tablet 25 Mg PO TID 09/05/16 Rx Carvedilol 6.25 Mg Tablet 6.25 Mg PO BIDWMEALS 09/05/16 Rx Atorvastatin Calcium 10 Mg Tablet 10 Mg PO QHS 09/05/16 Rx Albuterol Sulfate Neb Soln (Albuterol Sulfate) 2.5 Mg/3 Ml Vial.neb 2.5 Mg NEB RTQID 08/26/15 Rx Novolog Flexpen (Insulin Aspart) 100 Unit/1 Ml Insuln.pen 5 Unit SQ TIDWMEALS 08/21/15 Reported Celexa (Citalopram Hydrobromide) 20 Mg Tablet 20 Mg PO DAILY 05/20/14 Reported Vitamin D2 (Ergocalciferol (Vitamin D2)) 50,000 Unit Capsule 50,000 Unit PO WEEKLY 05/20/14 Reported Impression . 1. Acute on chronic systolic heart failure presenting as increasing dyspnea and right lower extremity edema along with interstitial infiltrates on the chest x-ray. 2. Underlying severe cardiomyopathy with an EF of 25%. 3. Acute on chronic renal failure. 4. Underlying chronic obstructive pulmonary disease. Smoked for 45-50 years, unknown FEV1. 5. Chronic hypoxic respiratory failure, on home oxygen 2-3 liters, but now requiring 4 liters. Plan . 1. Continue with present oxygen. 2. ON IV Lasix. worsening renal failure with diuresis. CXR worse as well. I suspect that she may be nearing hemodialysis. She has poor pump function due to her cardiomyopathy and resulting in poor perfusion to the kidneys.Consider IV Dobutamine 3. Monitor renal function. 4. P.r.n. bicarbonate. 5. Continue bronchodilators. 6. PFTs as an outpatient. ANGY FONTANEZ MD Aug 25, 2017 11:13
--- NOTE | 2017-08-25 12:48 | PDOC ---
PROGRESS NOTES Subjective Subjective Patient reports feeling very tired. Denies CP or SOA (at rest). Objective Objective Vital Signs Date Time Temp Pulse Resp B/P (MAP) Pulse Ox O2 Delivery O2 Flow Rate FiO2 08/25/17 11:39 95 Nasal Cannula 3.0 08/25/17 10:48 98.2 61 21 109/56 (73) 98.2 Intake and Output 08/25/17 07:00 Intake Total 1680 ml Output Total 150 ml Balance 1530 ml Intake Oral 1680 ml Output Urine Total 150 ml # Bowel Movements 1 Physical Exam Abdomen: Normal bowel sounds, Soft, No tenderness Heart: Regular rate Extremities: Other (mild edema bilateral LE's) General: Alert, Oriented X3, No acute distress Lungs: Other (BS decreased throughout) Assessment Assessment Problems Medical Problems: (1) Acute on chronic congestive heart failure Status: Acute (2) Acute on chronic respiratory failure Status: Acute (3) COPD (chronic obstructive pulmonary disease) Status: Acute (4) Elevated troponin Status: Acute (5) End stage renal disease Status: Acute (6) Severe protein-calorie malnutrition Status: Acute (7) Type 2 diabetes mellitus Status: Acute Plan Plan of Care 1. CKD IV probably progressed to ESRD now with no urine output despite IV Lasix. Lab and CXR worsening. Anticipate patient will need to start dialysis, Renal following. 2. Acute on chronic respiratory failure with COPD - stable on O2. 3. Systolic CHF with severe cardiomyopathy - diuretics ineffective without some renal function. Continue meds per Cardiology. D/C Lisinopril due to hypotension. 4. DM2 - controlled with small amounts of Novolog. Comment Review of Relevant I have reviewed the following items afua (where applicable) has been applied. Labs Laboratory Tests Test 08/23/17 16:46 08/23/17 20:45 08/24/17 04:25 08/24/17 07:23 Glucose (Fingerstick) 162 mg/dL (70-99) 172 mg/dL (70-99) 131 mg/dL (70-99) White Blood Count 13.0 x10^3/uL (4.0-11.0) Red Blood Count 2.71 x10^6/uL (3.50-5.40) Hemoglobin 8.3 g/dL (12.0-15.5) Hematocrit 26.0 % (36.0-47.0) Mean Corpuscular Volume 96 fL (79-100) Mean Corpuscular Hemoglobin 31 pg (25-35) Mean Corpuscular Hemoglobin Concent 32 g/dL (31-37) Red Cell Distribution Width 15.4 % (11.5-14.5) Platelet Count 127 x10^3/uL (140-400) Neutrophils (%) (Auto) 83 % (31-73) Lymphocytes (%) (Auto) 6 % (24-48) Monocytes (%) (Auto) 9 % (0-9) Eosinophils (%) (Auto) 2 % (0-3) Basophils (%) (Auto) 0 % (0-3) Neutrophils # (Auto) 10.8 x10^3uL (1.8-7.7) Lymphocytes # (Auto) 0.8 x10^3/uL (1.0-4.8) Monocytes # (Auto) 1.2 x10^3/uL (0.0-1.1) Eosinophils # (Auto) 0.2 x10^3/uL (0.0-0.7) Basophils # (Auto) 0.0 x10^3/uL (0.0-0.2) Sodium Level 137 mmol/L (136-145) Potassium Level 3.9 mmol/L (3.5-5.1) Chloride Level 103 mmol/L (98-107) Carbon Dioxide Level 23 mmol/L (21-32) Anion Gap 11 (6-14) Blood Urea Nitrogen 85 mg/dL (7-20) Creatinine 4.3 mg/dL (0.6-1.0) Estimated GFR (Cockcroft-Gault) 10.3 Glucose Level 128 mg/dL (70-99) Calcium Level 8.0 mg/dL (8.5-10.1) Test 08/24/17 11:58 08/24/17 17:11 08/24/17 20:52 08/25/17 03:45 Glucose (Fingerstick) 190 mg/dL (70-99) 126 mg/dL (70-99) 175 mg/dL (70-99) Sodium Level 136 mmol/L (136-145) Potassium Level 4.5 mmol/L (3.5-5.1) Chloride Level 101 mmol/L (98-107) Carbon Dioxide Level 21 mmol/L (21-32) Anion Gap 14 (6-14) Blood Urea Nitrogen 87 mg/dL (7-20) Creatinine 5.2 mg/dL (0.6-1.0) Estimated GFR (Cockcroft-Gault) 8.3 Glucose Level 144 mg/dL (70-99) Calcium Level 7.9 mg/dL (8.5-10.1) Magnesium Level 2.2 mg/dL (1.8-2.4) Test 08/25/17 07:41 08/25/17 11:02 Glucose (Fingerstick) 158 mg/dL (70-99) 187 mg/dL (70-99) Laboratory Tests Test 08/24/17 17:11 08/24/17 20:52 08/25/17 03:45 08/25/17 07:41 Glucose (Fingerstick) 126 mg/dL (70-99) 175 mg/dL (70-99) 158 mg/dL (70-99) Sodium Level 136 mmol/L (136-145) Potassium Level 4.5 mmol/L (3.5-5.1) Chloride Level 101 mmol/L (98-107) Carbon Dioxide Level 21 mmol/L (21-32) Anion Gap 14 (6-14) Blood Urea Nitrogen 87 mg/dL (7-20) Creatinine 5.2 mg/dL (0.6-1.0) Estimated GFR (Cockcroft-Gault) 8.3 Glucose Level 144 mg/dL (70-99) Calcium Level 7.9 mg/dL (8.5-10.1) Magnesium Level 2.2 mg/dL (1.8-2.4) Test 08/25/17 11:02 Glucose (Fingerstick) 187 mg/dL (70-99) Medications Current Medications Albuterol/ Ipratropium (Duoneb) 6 ml 1X ONCE NEB Last administered on 20:22; Start 08/21/17 at 20:15; Stop 08/21/17 at 20:16; Status DC Nicardipine HCl 50 mg/Sodium Chloride 270 ml @ 25 mls/hr CONT PRN IV SEE I/O RECORD Last administered on 08/21/17 22:12; Start 08/21/17 at 20:30; Stop at 13:02; Status DC Ondansetron HCl (Zofran) 4 mg PRN Q8HRS PRN IV NAUSEA/VOMITING; Start at 00:00; Stop 08/22/17 at 23:59; Status DC Sodium Chloride 1,000 ml @ 0 mls/hr Q0M IV ; Start 08/21/17 at 23:49; Stop at 23:48; Status DC Acetaminophen (Tylenol) 650 mg PRN Q4HRS PRN PO FEVER; Start 08/22/17 at 00:00 ; Stop 08/22/17 at 23:59; Status DC Albuterol/ Ipratropium (Duoneb) 3 ml RTQID NEB Last administered on 08/22/17 07:18; Start 08/22/17 at 08:00; Stop 08/22/17 at 09:06; Status DC Albuterol Sulfate (Ventolin Neb Soln) 2.5 mg RTQID NEB Last administered on 06:30; Start 08/22/17 at 09:00 Aspirin (Children'S Aspirin) 81 mg DAILY PO Last administered on 08/25/17 08: 30; Start 08/22/17 at 09:00 Atorvastatin Calcium (Lipitor) 10 mg QHS PO Last administered on 08/24/17 20: 57; Start 08/22/17 at 21:00 Carvedilol (Coreg) 6.25 mg BIDWMEALS PO Last administered on 08/24/17 08:28; Start 08/22/17 at 09:00 Citalopram Hydrobromide (CeleXA) 20 mg DAILY PO Last administered on 08/25/17 08:30; Start 08/22/17 at 09:00 Ergocalciferol (Vitamin D2) 50,000 unit Th PO Last administered on 08/23/17 08:53; Start 08/22/17 at 10:00 Famotidine (Pepcid) 20 mg DAILY PO Last administered on 08/25/17 08:30; Start 08/22/17 at 09:00 Furosemide (Lasix) 40 mg DAILY PO ; Start 08/22/17 at 09:00; Stop 08/22/17 at 09:00; Status DC Hydralazine HCl (Apresoline) 25 mg TID PO Last administered on 08/24/17 20:57 ; Start 08/22/17 at 09:00 Insulin Aspart (NovoLOG) 5 units TIDWMEALS SQ Last administered on 08/25/17 08 :35; Start 08/22/17 at 12:00 Isosorbide Mononitrate (Imdur) 60 mg DAILY PO Last administered on 08/24/17 08 :30; Start 08/22/17 at 09:00 Levothyroxine Sodium (Synthroid) 150 mcg DAILY07 PO Last administered on 08:22; Start 08/22/17 at 10:30 Lisinopril (Prinivil) 40 mg BID PO Last administered on 08/24/17 20:57; Start 08/22/17 at 09:00 Prasugrel (Effient) 10 mg DAILY PO Last administered on 08/25/17 08:30; Start 08/22/17 at 09:00 Spironolactone (Aldactone) 25 mg DAILY PO Last administered on 08/24/17 08:29 ; Start 08/22/17 at 09:00 Sodium Bicarbonate (Sodium Bicarbonate) 325 mg BID PO Last administered on 08/25 08:30; Start 08/22/17 at 09:00 Furosemide (Lasix) 40 mg DAILY IVP Last administered on 08/22/17 09:08; Start 08/22/17 at 09:00; Stop 08/22/17 at 11:29; Status DC Insulin Aspart (NovoLOG) 0-5 UNITS TIDWMEALS SQ Last administered on 08/25/17 08:36; Start 08/22/17 at 12:00 Dextrose (Dextrose 50%-Water Syringe) 12.5 gm PRN Q15MIN PRN IV SEE COMMENTS; Start 08/22/17 at 08:45 Furosemide (Lasix) 40 mg Q8HRS IVP Last administered on 08/25/17 05:58; Start 08/22/17 at 14:00 Darbepoetin Darwin (Aranesp) 60 mcg We SQ Last administered on 08/22/17 21:10; Start 08/22/17 at 21:00 Active Scripts Active Furosemide 40 Mg Tablet 40 Mg PO DAILY 30 Days Aldactone (Spironolactone) 25 Mg Tablet 25 Mg PO DAILY Isosorbide Mononitrate Er (Isosorbide Mononitrate) 30 Mg Tab.er.24h 60 Mg PO DAILY Hydralazine Hcl 25 Mg Tablet 25 Mg PO TID Carvedilol 6.25 Mg Tablet 6.25 Mg PO BIDWMEALS Atorvastatin Calcium 10 Mg Tablet 10 Mg PO QHS Albuterol Sulfate Neb Soln (Albuterol Sulfate) 2.5 Mg/3 Ml Vial.neb 2.5 Mg NEB RTQID Reported Levothyroxine Sodium 150 Mcg Tablet 150 Mcg PO DAILYAC Lantus Solostar (Insulin Glargine,Hum.rec.anlog) 100 Unit/1 Ml Insuln.pen 3 Unit SQ HS Famotidine 20 Mg Tablet 20 Mg PO BID Effient (Prasugrel Hcl) 10 Mg Tablet 10 Mg PO DAILY Lisinopril 40 Mg Tablet 40 Mg PO BID Sodium Bicarbonate 325 Mg Tablet 10 Gr PO BID Aspirin 81 Mg Tab.chew 1 Tab PO DAILY Novolog Flexpen (Insulin Aspart) 100 Unit/1 Ml Insuln.pen 5 Unit SQ TIDWMEALS Celexa (Citalopram Hydrobromide) 20 Mg Tablet 20 Mg PO DAILY Vitamin D2 (Ergocalciferol (Vitamin D2)) 50,000 Unit Capsule 50,000 Unit PO WEEKLY Vitals/I & O Vital Sign - Last 24 Hours 08/24/17 08/24/17 08/24/17 08/24/17 14:50 15:48 19:15 19:21 Temp 98.4 98.5 98.4 98.5 Pulse 59 61 Resp 19 22 B/P (MAP) 93/43 (60) 107/45 (65) Pulse Ox 94 95 96 98 O2 Delivery Nasal Cannula Nasal Cannula Nasal Cannula Nasal Cannula O2 Flow Rate 4.0 3.0 4.0 3.0 08/24/17 08/24/17 08/24/17 08/24/17 19:29 20:57 20:57 23:12 Temp 98.1 98.1 Pulse 61 61 59 Resp 22 B/P (MAP) 107/45 107/45 101/49 (66) Pulse Ox 95 O2 Delivery Nasal Cannula Nasal Cannula O2 Flow Rate 3.0 3.0 08/25/17 08/25/17 08/25/17 08/25/17 03:15 06:30 07:00 07:51 Temp 97.6 98.0 97.6 98.0 Pulse 61 65 Resp 20 19 B/P (MAP) 95/47 (63) 104/51 (68) Pulse Ox 97 95 94 O2 Delivery Nasal Cannula Nasal Cannula Nasal Cannula Nasal Cannula O2 Flow Rate 3.0 3.0 3.0 3.0 08/25/17 08/25/17 10:48 11:39 Temp 98.2 98.2 Pulse 61 Resp 21 B/P (MAP) 109/56 (73) Pulse Ox 98 95 O2 Delivery Nasal Cannula Nasal Cannula O2 Flow Rate 4.0 3.0 Intake and Output 08/24/17 08/24/17 08/25/17 15:00 23:00 07:00 Intake Total 960 ml 720 ml Output Total 150 ml 0 ml Balance -150 ml 960 ml 720 ml JOCELYN FERNÁNDEZ MD Aug 25, 2017 12:48
[2017-08-25 15:00] VITALS: BP 100/49
--- NOTE | 2017-08-25 15:39 | PDOC ---
SUBJECTIVE ROS ESRD Doing better CVS: no Orthopnea, no CP RESP: min SOB, ? PLATT GI: no Nausea, no Vomiting : no Dysuria, no Urgency; UO is marginal OBJECTIVE Vital Signs Vital Signs Date Time Temp Pulse Resp B/P (MAP) Pulse Ox O2 Delivery O2 Flow Rate FiO2 08/25/17 11:39 95 Nasal Cannula 3.0 08/25/17 10:48 98.2 61 21 109/56 (73) 98.2 I & 0 Intake and Output 08/25/17 07:00 Intake Total 1680 ml Output Total 150 ml Balance 1530 ml Intake Oral 1680 ml Output Urine Total 150 ml # Bowel Movements 1 PHYSICAL EXAM Physical Exam GEN: Awake, Oriented x 3, In no distress EYES: Vision Unchanged, Conjunctiva Normal EN: No EN Drainage, Mucous Membranes moist NECK: no JVD, no JVP, Supple, no Thyromegaly CVS: S1S2, + Murmur, No Gallop, No Rub,+ Edema RESP: rare Rales, no Rhonchi,no Acc. Muscle Use GI: BS + ve, NO Bruit, Non Tender, Non Distended : no CVA tenderness, no Suprapubic Tenderness DIAGNOSIS/ASSESSMENT Assessment & Plan ESRD: Will begin HD on Mnoday after AVF/ PCath : Current fluid and E-lyte status does not necessitate emergent need for dialysis. Will re-evaluate for dialysis in the am Nephrotic Syndrome - ct RAAS BLockade agents ANEMIA; Aranap as ordered, Transfuse with next HD as needed HTN: currently lowish - may need to D/c Imdur and hydralazine. Current BP meds as reviewed. See orders for changes. BONE & MINERAL: follow phos and alter binder regimen as needed Discussed Plan of Care with pt at bedside Problems: COMMENT/RELEVANT DATA Meds Current Medications Medications (Trade) Dose Ordered Sig/Slick Start Time Stop Time Status Last Admin Dose Admin Acetaminophen (Tylenol) 650 mg PRN Q4HRS PRN 08/22/17 00:00 08/22/17 23:59 DC Albuterol Sulfate (Ventolin Neb Soln) 2.5 mg RTQID 08/22/17 09:00 08/25/17 06:30 2.5 MG Albuterol/ Ipratropium (Duoneb) 3 ml RTQID 08/22/17 08:00 08/22/17 09:06 DC 08/22/17 07:18 3 ML Aspirin (Children'S Aspirin) 81 mg DAILY 08/22/17 09:00 08/25/17 08:30 81 MG Atorvastatin Calcium (Lipitor) 10 mg QHS 08/22/17 21:00 08/24/17 20:57 10 MG Carvedilol (Coreg) 6.25 mg BIDWMEALS 08/22/17 09:00 08/24/17 08:28 6.25 MG Citalopram Hydrobromide (CeleXA) 20 mg DAILY 08/22/17 09:00 08/25/17 08:30 20 MG Darbepoetin Darwin (Aranesp) 60 mcg We 08/22/17 21:00 08/22/17 21:10 60 MCG Dextrose (Dextrose 50%-Water Syringe) 12.5 gm PRN Q15MIN PRN 08/22/17 08:45 Ergocalciferol (Vitamin D2) 50,000 unit Th 08/22/17 10:00 08/23/17 08:53 50,000 UNIT Famotidine (Pepcid) 20 mg DAILY 08/22/17 09:00 08/25/17 08:30 20 MG Furosemide (Lasix) 40 mg Q8HRS 08/22/17 14:00 08/25/17 05:58 40 MG Hydralazine HCl (Apresoline) 25 mg TID 08/22/17 09:00 08/24/17 20:57 25 MG Insulin Aspart (NovoLOG) 0-5 UNITS TIDWMEALS 08/22/17 12:00 08/25/17 12:00 2 UNITS Isosorbide Mononitrate (Imdur) 60 mg DAILY 08/22/17 09:00 08/24/17 08:30 60 MG Levothyroxine Sodium (Synthroid) 150 mcg DAILY07 08/22/17 10:30 08/25/17 08:22 150 MCG Lisinopril (Prinivil) 40 mg BID 08/22/17 09:00 08/25/17 12:49 DC 08/24/17 20:57 40 MG Nicardipine HCl 50 mg/Sodium Chloride 270 ml @ 25 mls/hr CONT PRN 08/21/17 20:30 08/24/17 13:02 DC 08/21/17 22:12 25 MLS/HR Ondansetron HCl (Zofran) 4 mg PRN Q8HRS PRN 08/22/17 00:00 08/22/17 23:59 DC Prasugrel (Effient) 10 mg DAILY 08/22/17 09:00 08/25/17 08:30 10 MG Sodium Bicarbonate (Sodium Bicarbonate) 325 mg BID 08/22/17 09:00 08/25/17 08:30 325 MG Sodium Chloride 1,000 ml @ 0 mls/hr Q0M 08/21/17 23:49 08/22/17 23:48 DC Spironolactone (Aldactone) 25 mg DAILY 08/22/17 09:00 08/24/17 08:29 25 MG Lab Laboratory Tests Test 08/24/17 17:11 08/24/17 20:52 08/25/17 03:45 08/25/17 07:41 Glucose (Fingerstick) 126 mg/dL (70-99) 175 mg/dL (70-99) 158 mg/dL (70-99) Sodium Level 136 mmol/L (136-145) Potassium Level 4.5 mmol/L (3.5-5.1) Chloride Level 101 mmol/L (98-107) Carbon Dioxide Level 21 mmol/L (21-32) Anion Gap 14 (6-14) Blood Urea Nitrogen 87 mg/dL (7-20) Creatinine 5.2 mg/dL (0.6-1.0) Estimated GFR (Cockcroft-Gault) 8.3 Glucose Level 144 mg/dL (70-99) Calcium Level 7.9 mg/dL (8.5-10.1) Magnesium Level 2.2 mg/dL (1.8-2.4) Test 08/25/17 11:02 Glucose (Fingerstick) 187 mg/dL (70-99) JOSE ALBERTO VELAZQUEZ MD Aug 25, 2017 15:39
[2017-08-25 19:00] VITALS: BP 107/50
[2017-08-25] MEDS: ATORVASTATIN CALCIUM 10 MG TABLET. PO SCH (20:53)
[2017-08-25 23:19] VITALS: BP 112/53
[2017-08-26 03:00] VITALS: BP 101/49
[2017-08-26] MEDS: FUROSEMIDE 40 MG/4 ML VIAL. IVP SCH (06:08)
[2017-08-26 07:00] VITALS: BP 127/58
[2017-08-26] MEDS: ALBUTEROL SULFATE 2.5 MG/3 ML NEBU. NEB SCH ×3 (07:32→20:51)
[2017-08-26] MEDS: INSULIN ASPART 300 UNITS/3 ML INSULN.PEN SQ SCH ×6 (08:00→17:41)
[2017-08-26] MEDS: hydrALAZINE 25 MG TABLET PO SCH (08:42)
[2017-08-26] MEDS: SODIUM BICARBONATE 650 MG TABLET. PO SCH ×2 (08:42→21:55)
[2017-08-26] MEDS: SPIRONOLACTONE 25 MG TABLET PO SCH (08:42)
[2017-08-26] MEDS: FAMOTIDINE 20 MG TABLET. PO SCH (08:42)
[2017-08-26] MEDS: ASPIRIN CHEWABLE 81 MG TABLET. PO SCH (08:42)
[2017-08-26] MEDS: CITALOPRAM 20 MG TABLET. PO SCH (08:42)
[2017-08-26] MEDS: CARVEDILOL 6.25 MG TABLET. PO SCH ×2 (08:44→17:38)
[2017-08-26] MEDS: LEVOTHYROXINE 150 MCG TABLET PO SCH (08:44)
--- NOTE | 2017-08-26 10:05 | PDOC ---
CARDIOLOGY PROGRESS NOTE SUBJECTIVE: Continues to remain fatigued. Continued dyspnea. Denies chest pain. No palpitations. Hasn't gotten out of bed. OBJECTIVE: Vital SIgns: Vital Signs Date Time Temp Pulse Resp B/P (MAP) Pulse Ox O2 Delivery O2 Flow Rate FiO2 08/26/17 08:44 64 127/58 08/26/17 07:00 98.1 20 97 Nasal Cannula 4.0 98.1 Objective: Tired. Weak Normal heart tones. Lungs clear. RLE edema persistent. Morbidly obese abdomen, soft CURRENT MEDICATIONS: CV meds reviewed - coreg, hydral, imdur, lasix, spironolactone DIAGNOSTIC TESTING: No new labs today. ASSESSMENT: 1. Ischemic CMP with acute on chronic systolic HF 2. HTN 3. CARMEN on CKD - now needing HD 4. Dyslipidemia 5. PAD - s/p LLE amputation Problems: PLAN: 1. Pressures well controlled. Continue current regimen. Will clarify regarding RAAS agents with Dr. Watkins. 2. Stable from CV perspective. 3. Await HD. Supportive care. LAURA RIVERA MD Aug 26, 2017 10:05
[2017-08-26 10:54] VITALS: BP 121/58
[2017-08-26] MEDS: ISOSORBIDE MONONITRATE ER 30 MG TAB.ER.24H PO SCH (11:13)
[2017-08-26] MEDS: PRASUGREL 10 MG TABLET. PO SCH (11:13)
--- NOTE | 2017-08-26 12:37 | RAD ---
VEIN MAP UPPER EXT BILATERAL Clinical Indication: AVF creation Comparison: None. Technique: Targeted sonography of the upper extremities is performed for vein mapping prior to arteriovenous fistula creation. Findings: Right upper extremity: Basilic vein: Proximal to distal measures 4 mm, 3 mm, 3 mm, 3 mm, 2 mm, 2 mm, 2 mm. Basilic vein appears patent. Cephalic vein: Proximal to distal measures 3 mm, 2 mm, 2 mm, 2 mm, 2 mm, 1 mm, 1 mm. Cephalic vein appears patent. Left upper extremity: Basilic vein: Proximal to distal measures 4 mm, with 4 mm, 4 mm, 2 mm, 2 mm, 1 mm, 1 mm. Basilic vein appears patent. Cephalic vein: Proximal to distal measures 3 mm, 4 mm, 3 mm, 3 mm, 3 mm, 1 mm, 2 mm. Cephalic vein appears patent. IMPRESSION: Bilateral upper extremity vein mapping, detailed above.
[2017-08-26] MEDS ORDERED: LISINOPRIL 20 MG TABLET PO SCH (13:00)
--- NOTE | 2017-08-26 13:00 | PDOC ---
PROGRESS NOTES Subjective Subjective Patient reports fatigue, no other complaints. Objective Objective Vital Signs Date Time Temp Pulse Resp B/P (MAP) Pulse Ox O2 Delivery O2 Flow Rate FiO2 08/26/17 11:13 58 121/58 08/26/17 10:54 97.7 20 98 Nasal Cannula 4.0 97.7 Intake and Output 08/26/17 07:00 Intake Total 1080 ml Output Total 0 ml Balance 1080 ml Intake Oral 1080 ml Output Urine Total 0 ml # Voids 1 Physical Exam Abdomen: Normal bowel sounds, Soft, No tenderness Heart: Regular rate Extremities: No edema General: Alert, Oriented X3, No acute distress Lungs: Other (BS decreased throughout but CTA) Assessment Assessment Problems Medical Problems: (1) Acute on chronic congestive heart failure Status: Acute (2) Acute on chronic respiratory failure Status: Acute (3) COPD (chronic obstructive pulmonary disease) Status: Acute (4) Elevated troponin Status: Acute (5) End stage renal disease Status: Acute (6) Severe protein-calorie malnutrition Status: Acute (7) Type 2 diabetes mellitus Status: Acute Plan Plan of Care 1. ESRD - patient to start dialysis tomorrow per Dr Watkins. 2. HTN - Dr Watkins recommends resuming the Lisinopril to help decrease her proteinuria, will do this and d/c Hydralazine as BP has been running somewhat low. 3. acute on chronic respiratory failure with COPD - stable, continue O2 and prn nebs. 4. DM2 - well controlled with small doses of SS insulin. 5. CHF with severe cardiomyopathy - presently stable. Will d/c Lasix as patient without urine output now. Comment Review of Relevant I have reviewed the following items afua (where applicable) has been applied. Labs Laboratory Tests Test 08/24/17 17:11 08/24/17 20:52 08/25/17 03:45 08/25/17 07:41 Glucose (Fingerstick) 126 mg/dL (70-99) 175 mg/dL (70-99) 158 mg/dL (70-99) Sodium Level 136 mmol/L (136-145) Potassium Level 4.5 mmol/L (3.5-5.1) Chloride Level 101 mmol/L (98-107) Carbon Dioxide Level 21 mmol/L (21-32) Anion Gap 14 (6-14) Blood Urea Nitrogen 87 mg/dL (7-20) Creatinine 5.2 mg/dL (0.6-1.0) Estimated GFR (Cockcroft-Gault) 8.3 Glucose Level 144 mg/dL (70-99) Calcium Level 7.9 mg/dL (8.5-10.1) Magnesium Level 2.2 mg/dL (1.8-2.4) Test 08/25/17 11:02 08/25/17 16:47 08/25/17 20:45 08/26/17 07:52 Glucose (Fingerstick) 187 mg/dL (70-99) 119 mg/dL (70-99) 110 mg/dL (70-99) 86 mg/dL (70-99) Test 08/26/17 11:21 Glucose (Fingerstick) 162 mg/dL (70-99) Laboratory Tests Test 08/25/17 16:47 08/25/17 20:45 08/26/17 07:52 08/26/17 11:21 Glucose (Fingerstick) 119 mg/dL (70-99) 110 mg/dL (70-99) 86 mg/dL (70-99) 162 mg/dL (70-99) Medications Current Medications Albuterol/ Ipratropium (Duoneb) 6 ml 1X ONCE NEB Last administered on 20:22; Start 08/21/17 at 20:15; Stop 08/21/17 at 20:16; Status DC Nicardipine HCl 50 mg/Sodium Chloride 270 ml @ 25 mls/hr CONT PRN IV SEE I/O RECORD Last administered on 08/21/17 22:12; Start 08/21/17 at 20:30; Stop at 13:02; Status DC Ondansetron HCl (Zofran) 4 mg PRN Q8HRS PRN IV NAUSEA/VOMITING; Start at 00:00; Stop 08/22/17 at 23:59; Status DC Sodium Chloride 1,000 ml @ 0 mls/hr Q0M IV ; Start 08/21/17 at 23:49; Stop at 23:48; Status DC Acetaminophen (Tylenol) 650 mg PRN Q4HRS PRN PO FEVER; Start 08/22/17 at 00:00 ; Stop 08/22/17 at 23:59; Status DC Albuterol/ Ipratropium (Duoneb) 3 ml RTQID NEB Last administered on 08/22/17 07:18; Start 08/22/17 at 08:00; Stop 08/22/17 at 09:06; Status DC Albuterol Sulfate (Ventolin Neb Soln) 2.5 mg RTQID NEB Last administered on 06:30; Start 08/22/17 at 09:00 Aspirin (Children'S Aspirin) 81 mg DAILY PO Last administered on 08/26/17 08: 42; Start 08/22/17 at 09:00 Atorvastatin Calcium (Lipitor) 10 mg QHS PO Last administered on 08/25/17 20: 53; Start 08/22/17 at 21:00 Carvedilol (Coreg) 6.25 mg BIDWMEALS PO Last administered on 08/26/17 08:44; Start 08/22/17 at 09:00 Citalopram Hydrobromide (CeleXA) 20 mg DAILY PO Last administered on 08/26/17 08:42; Start 08/22/17 at 09:00 Ergocalciferol (Vitamin D2) 50,000 unit Th PO Last administered on 08/23/17 08:53; Start 08/22/17 at 10:00 Famotidine (Pepcid) 20 mg DAILY PO Last administered on 08/26/17 08:42; Start 08/22/17 at 09:00 Furosemide (Lasix) 40 mg DAILY PO ; Start 08/22/17 at 09:00; Stop 08/22/17 at 09:00; Status DC Hydralazine HCl (Apresoline) 25 mg TID PO Last administered on 08/26/17 08:42 ; Start 08/22/17 at 09:00 Insulin Aspart (NovoLOG) 5 units TIDWMEALS SQ Last administered on 08/26/17 09 :03; Start 08/22/17 at 12:00 Isosorbide Mononitrate (Imdur) 60 mg DAILY PO Last administered on 08/26/17 11 :13; Start 08/22/17 at 09:00 Levothyroxine Sodium (Synthroid) 150 mcg DAILY07 PO Last administered on 08:44; Start 08/22/17 at 10:30 Lisinopril (Prinivil) 40 mg BID PO Last administered on 08/24/17 20:57; Start 08/22/17 at 09:00; Stop 08/25/17 at 12:49; Status DC Prasugrel (Effient) 10 mg DAILY PO Last administered on 08/26/17 11:13; Start 08/22/17 at 09:00 Spironolactone (Aldactone) 25 mg DAILY PO Last administered on 08/26/17 08:42 ; Start 08/22/17 at 09:00 Sodium Bicarbonate (Sodium Bicarbonate) 325 mg BID PO Last administered on 08/26 08:42; Start 08/22/17 at 09:00 Furosemide (Lasix) 40 mg DAILY IVP Last administered on 08/22/17 09:08; Start 08/22/17 at 09:00; Stop 08/22/17 at 11:29; Status DC Insulin Aspart (NovoLOG) 0-5 UNITS TIDWMEALS SQ Last administered on 08/25/17 12:00; Start 08/22/17 at 12:00 Dextrose (Dextrose 50%-Water Syringe) 12.5 gm PRN Q15MIN PRN IV SEE COMMENTS; Start 08/22/17 at 08:45 Furosemide (Lasix) 40 mg Q8HRS IVP Last administered on 08/26/17 06:08; Start 08/22/17 at 14:00 Darbepoetin Darwin (Aranesp) 60 mcg We SQ Last administered on 08/22/17 21:10; Start 08/22/17 at 21:00 Active Scripts Active Furosemide 40 Mg Tablet 40 Mg PO DAILY 30 Days Aldactone (Spironolactone) 25 Mg Tablet 25 Mg PO DAILY Isosorbide Mononitrate Er (Isosorbide Mononitrate) 30 Mg Tab.er.24h 60 Mg PO DAILY Hydralazine Hcl 25 Mg Tablet 25 Mg PO TID Carvedilol 6.25 Mg Tablet 6.25 Mg PO BIDWMEALS Atorvastatin Calcium 10 Mg Tablet 10 Mg PO QHS Albuterol Sulfate Neb Soln (Albuterol Sulfate) 2.5 Mg/3 Ml Vial.neb 2.5 Mg NEB RTQID Reported Levothyroxine Sodium 150 Mcg Tablet 150 Mcg PO DAILYAC Lantus Solostar (Insulin Glargine,Hum.rec.anlog) 100 Unit/1 Ml Insuln.pen 3 Unit SQ HS Famotidine 20 Mg Tablet 20 Mg PO BID Effient (Prasugrel Hcl) 10 Mg Tablet 10 Mg PO DAILY Lisinopril 40 Mg Tablet 40 Mg PO BID Sodium Bicarbonate 325 Mg Tablet 10 Gr PO BID Aspirin 81 Mg Tab.chew 1 Tab PO DAILY Novolog Flexpen (Insulin Aspart) 100 Unit/1 Ml Insuln.pen 5 Unit SQ TIDWMEALS Celexa (Citalopram Hydrobromide) 20 Mg Tablet 20 Mg PO DAILY Vitamin D2 (Ergocalciferol (Vitamin D2)) 50,000 Unit Capsule 50,000 Unit PO WEEKLY Vitals/I & O Vital Sign - Last 24 Hours 08/25/17 08/25/17 08/25/17 08/25/17 14:00 15:00 17:00 19:00 Temp 98.4 97.1 98.4 97.1 Pulse 60 62 60 64 Resp 20 24 B/P (MAP) 100/49 100/49 (66) 100/49 107/50 (69) Pulse Ox 97 98 O2 Delivery Nasal Cannula Nasal Cannula O2 Flow Rate 4.0 4.0 08/25/17 08/25/17 08/25/17 08/26/17 19:47 20:57 23:19 03:00 Temp 97.7 97.9 97.7 97.9 Pulse 64 64 60 Resp 21 22 B/P (MAP) 107/50 112/53 (72) 101/49 (66) Pulse Ox 96 98 O2 Delivery Nasal Cannula Nasal Cannula Nasal Cannula O2 Flow Rate 4.0 4.0 4.0 08/26/17 08/26/17 08/26/17 08/26/17 07:00 08:00 08:42 08:44 Temp 98.1 98.1 Pulse 62 63 64 Resp 20 B/P (MAP) 127/58 (81) 127/58 127/58 Pulse Ox 97 O2 Delivery Nasal Cannula Nasal Cannula O2 Flow Rate 4.0 4.0 08/26/17 08/26/17 10:54 11:13 Temp 97.7 97.7 Pulse 61 58 Resp 20 B/P (MAP) 121/58 (79) 121/58 Pulse Ox 98 O2 Delivery Nasal Cannula O2 Flow Rate 4.0 Intake and Output 08/25/17 08/25/17 08/26/17 15:00 23:00 07:00 Intake Total 120 ml 750 ml 210 ml Output Total 0 ml 0 ml Balance 120 ml 750 ml 210 ml JOCELYN FERNÁNDEZ MD Aug 26, 2017 13:00
--- NOTE | 2017-08-26 13:31 | PDOC ---
PULMONARY PROGRESS NOTES Subjective less soa Vitals Vital Signs Date Time Temp Pulse Resp B/P (MAP) Pulse Ox O2 Delivery O2 Flow Rate FiO2 08/26/17 11:13 58 121/58 08/26/17 10:54 97.7 20 98 Nasal Cannula 4.0 97.7 General: Alert, No acute distress HEENT: Other Lungs: Wheezing (resolved) Cardiovascular: S1, S2 Abdomen: Soft, Non-tender, Other Extremities: Other (2+edema) Labs Laboratory Tests Test 08/24/17 17:11 08/24/17 20:52 08/25/17 03:45 08/25/17 07:41 Glucose (Fingerstick) 126 mg/dL (70-99) 175 mg/dL (70-99) 158 mg/dL (70-99) Sodium Level 136 mmol/L (136-145) Potassium Level 4.5 mmol/L (3.5-5.1) Chloride Level 101 mmol/L (98-107) Carbon Dioxide Level 21 mmol/L (21-32) Anion Gap 14 (6-14) Blood Urea Nitrogen 87 mg/dL (7-20) Creatinine 5.2 mg/dL (0.6-1.0) Estimated GFR (Cockcroft-Gault) 8.3 Glucose Level 144 mg/dL (70-99) Calcium Level 7.9 mg/dL (8.5-10.1) Magnesium Level 2.2 mg/dL (1.8-2.4) Test 08/25/17 11:02 08/25/17 16:47 08/25/17 20:45 08/26/17 07:52 Glucose (Fingerstick) 187 mg/dL (70-99) 119 mg/dL (70-99) 110 mg/dL (70-99) 86 mg/dL (70-99) Test 08/26/17 11:21 Glucose (Fingerstick) 162 mg/dL (70-99) Laboratory Tests Test 08/25/17 16:47 08/25/17 20:45 08/26/17 07:52 08/26/17 11:21 Glucose (Fingerstick) 119 mg/dL (70-99) 110 mg/dL (70-99) 86 mg/dL (70-99) 162 mg/dL (70-99) Medications Active Scripts Medications Dose Route/Sig Max Daily Dose Days Date Category Levothyroxine Sodium 150 Mcg Tablet 150 Mcg PO DAILYAC 08/21/17 Reported Lantus Solostar (Insulin Glargine,Hum.rec.anlog) 100 Unit/1 Ml Insuln.pen 3 Unit SQ HS 08/21/17 Reported Famotidine 20 Mg Tablet 20 Mg PO BID 08/21/17 Reported Effient (Prasugrel Hcl) 10 Mg Tablet 10 Mg PO DAILY 08/21/17 Reported Lisinopril 40 Mg Tablet 40 Mg PO BID 08/21/17 Reported Furosemide 40 Mg Tablet 40 Mg PO DAILY 30 05/20/17 Rx Sodium Bicarbonate 325 Mg Tablet 10 Gr PO BID 12/28/16 Reported Aspirin 81 Mg Tab.chew 1 Tab PO DAILY 12/28/16 Reported Aldactone (Spironolactone) 25 Mg Tablet 25 Mg PO DAILY 09/05/16 Rx Isosorbide Mononitrate Er (Isosorbide Mononitrate) 30 Mg Tab.er.24h 60 Mg PO DAILY 09/05/16 Rx Hydralazine Hcl 25 Mg Tablet 25 Mg PO TID 09/05/16 Rx Carvedilol 6.25 Mg Tablet 6.25 Mg PO BIDWMEALS 09/05/16 Rx Atorvastatin Calcium 10 Mg Tablet 10 Mg PO QHS 09/05/16 Rx Albuterol Sulfate Neb Soln (Albuterol Sulfate) 2.5 Mg/3 Ml Vial.neb 2.5 Mg NEB RTQID 08/26/15 Rx Novolog Flexpen (Insulin Aspart) 100 Unit/1 Ml Insuln.pen 5 Unit SQ TIDWMEALS 08/21/15 Reported Celexa (Citalopram Hydrobromide) 20 Mg Tablet 20 Mg PO DAILY 05/20/14 Reported Vitamin D2 (Ergocalciferol (Vitamin D2)) 50,000 Unit Capsule 50,000 Unit PO WEEKLY 05/20/14 Reported Impression . 1. Acute on chronic systolic heart failure presenting as increasing dyspnea and right lower extremity edema along with interstitial infiltrates on the chest x-ray. 2. Underlying severe cardiomyopathy with an EF of 25%. 3. Acute on chronic renal failure. 4. Underlying chronic obstructive pulmonary disease. Smoked for 45-50 years, unknown FEV1. 5. Chronic hypoxic respiratory failure, on home oxygen 2-3 liters, but now requiring 4 liters. Plan . 1. Continue with present oxygen. 2. off IV Lasix. worsening renal failure with diuresis. CXR worse as well. will need HD, catheter in am 3. Monitor renal function. 4. P.r.n. bicarbonate. 5. Continue bronchodilators. 6. PFTs as an outpatient. 7. Cough with yellow sputum. add Doxy for acute bronchitis ANGY FONTANEZ MD Aug 26, 2017 13:31
[2017-08-26 15:04] VITALS: BP 123/56
[2017-08-26] MEDS: DOXYCYCLINE HYCLATE 100 MG TABLET PO SCH ×2 (15:11→21:55)
[2017-08-26 19:53] VITALS: BP 112/53
[2017-08-26] MEDS: ATORVASTATIN CALCIUM 10 MG TABLET. PO SCH (21:55)
[2017-08-26 23:10] VITALS: BP 140/50
[2017-08-27 03:00] VITALS: BP 110/53
[2017-08-27] MEDS: LEVOTHYROXINE 150 MCG TABLET PO SCH (06:56)
[2017-08-27 07:00] VITALS: BP 110/53
[2017-08-27] MEDS: INSULIN ASPART 300 UNITS/3 ML INSULN.PEN SQ SCH ×6 (08:00→17:00)
[2017-08-27] MEDS: CARVEDILOL 6.25 MG TABLET. PO SCH ×2 (08:00→18:08)
[2017-08-27] MEDS: ALBUTEROL SULFATE 2.5 MG/3 ML NEBU. NEB SCH ×4 (08:02→20:11)
--- NOTE | 2017-08-27 08:51 | PDOC ---
PROGRESS NOTES Subjective Pt reports she is sleeping well. She reports a cough that occasionally produces sputum. She does not like the breathing treatments due to the taste and reports they do not improve her cough. Objective Afebrile General: [Pale skin, NAD] Heart: [RRR] Lungs: [Wheezing] Abd: [Decreased bowel sounds, no pain/tenderness on palpitation] Vital Signs Vital Signs Date Time Temp Pulse Resp B/P (MAP) Pulse Ox O2 Delivery O2 Flow Rate FiO2 08/27/17 08:04 95 Nasal Cannula 3.0 08/27/17 03:00 97.9 56 28 110/53 (72) 97.9 I & O Intake and Output 08/27/17 07:00 Intake Total 975 ml Balance 975 ml Intake Oral 975 ml # Voids 4 # Bowel Movements 2 Assessment and Plan Problems Medical Problems: (1) Acute on chronic congestive heart failure Status: Acute (2) Acute on chronic respiratory failure Status: Acute (3) COPD (chronic obstructive pulmonary disease) Status: Acute (4) Elevated troponin Status: Acute (5) End stage renal disease Status: Acute (6) Severe protein-calorie malnutrition Status: Acute (7) Type 2 diabetes mellitus Status: Acute Plan of Care 1. ESRD - patient to start dialysis pending hepatitis labs 2. HTN - Resuming the Lisinopril to help decrease her proteinuria 3. acute on chronic respiratory failure with COPD - stable, continue O2 and resume home breo in place of nebs. 4. DM2 - well controlled with small doses of SS insulin. 5. CHF with severe cardiomyopathy - presently stable. 6. Anemia - progressing. Not requiring transfusion. Likely related to chronic renal disease Problems: Tristan PENG MD Aug 27, 2017 08:50
[2017-08-27] MEDS: FAMOTIDINE 20 MG TABLET. PO SCH (09:00)
[2017-08-27] MEDS: PRASUGREL 10 MG TABLET. PO SCH (09:00)
[2017-08-27] MEDS: SPIRONOLACTONE 25 MG TABLET PO SCH (09:00)
[2017-08-27] MEDS: SODIUM BICARBONATE 650 MG TABLET. PO SCH (09:00)
[2017-08-27] MEDS: ISOSORBIDE MONONITRATE ER 30 MG TAB.ER.24H PO SCH (09:00)
[2017-08-27 11:09] VITALS: BP 110/58
--- NOTE | 2017-08-27 11:24 | PDOC ---
PULMONARY PROGRESS NOTES Subjective less soa Vitals Vital Signs Date Time Temp Pulse Resp B/P (MAP) Pulse Ox O2 Delivery O2 Flow Rate FiO2 08/27/17 11:09 97.4 53 22 110/58 (75) 98 Nasal Cannula 3.0 97.4 General: Alert, No acute distress HEENT: Other Lungs: Wheezing (resolved) Cardiovascular: S1, S2 Abdomen: Soft, Non-tender, Other Extremities: Other (2+edema) Labs Laboratory Tests Test 08/25/17 16:47 08/25/17 20:45 08/26/17 07:52 08/26/17 11:21 Glucose (Fingerstick) 119 mg/dL (70-99) 110 mg/dL (70-99) 86 mg/dL (70-99) 162 mg/dL (70-99) Test 08/26/17 16:20 08/26/17 21:25 08/27/17 07:56 Glucose (Fingerstick) 163 mg/dL (70-99) 151 mg/dL (70-99) 112 mg/dL (70-99) Laboratory Tests Test 08/26/17 16:20 08/26/17 21:25 08/27/17 07:56 Glucose (Fingerstick) 163 mg/dL (70-99) 151 mg/dL (70-99) 112 mg/dL (70-99) Medications Active Scripts Medications Dose Route/Sig Max Daily Dose Days Date Category Levothyroxine Sodium 150 Mcg Tablet 150 Mcg PO DAILYAC 08/21/17 Reported Lantus Solostar (Insulin Glargine,Hum.rec.anlog) 100 Unit/1 Ml Insuln.pen 3 Unit SQ HS 08/21/17 Reported Famotidine 20 Mg Tablet 20 Mg PO BID 08/21/17 Reported Effient (Prasugrel Hcl) 10 Mg Tablet 10 Mg PO DAILY 08/21/17 Reported Lisinopril 40 Mg Tablet 40 Mg PO BID 08/21/17 Reported Furosemide 40 Mg Tablet 40 Mg PO DAILY 30 05/20/17 Rx Sodium Bicarbonate 325 Mg Tablet 10 Gr PO BID 12/28/16 Reported Aspirin 81 Mg Tab.chew 1 Tab PO DAILY 12/28/16 Reported Aldactone (Spironolactone) 25 Mg Tablet 25 Mg PO DAILY 09/05/16 Rx Isosorbide Mononitrate Er (Isosorbide Mononitrate) 30 Mg Tab.er.24h 60 Mg PO DAILY 09/05/16 Rx Hydralazine Hcl 25 Mg Tablet 25 Mg PO TID 09/05/16 Rx Carvedilol 6.25 Mg Tablet 6.25 Mg PO BIDWMEALS 09/05/16 Rx Atorvastatin Calcium 10 Mg Tablet 10 Mg PO QHS 09/05/16 Rx Albuterol Sulfate Neb Soln (Albuterol Sulfate) 2.5 Mg/3 Ml Vial.neb 2.5 Mg NEB RTQID 08/26/15 Rx Novolog Flexpen (Insulin Aspart) 100 Unit/1 Ml Insuln.pen 5 Unit SQ TIDWMEALS 08/21/15 Reported Celexa (Citalopram Hydrobromide) 20 Mg Tablet 20 Mg PO DAILY 05/20/14 Reported Vitamin D2 (Ergocalciferol (Vitamin D2)) 50,000 Unit Capsule 50,000 Unit PO WEEKLY 05/20/14 Reported Impression . 1. Acute on chronic systolic heart failure presenting as increasing dyspnea and right lower extremity edema along with interstitial infiltrates on the chest x-ray. 2. Underlying severe cardiomyopathy with an EF of 25%. 3. Acute on chronic renal failure. 4. Underlying chronic obstructive pulmonary disease. Smoked for 45-50 years, unknown FEV1. 5. Chronic hypoxic respiratory failure, on home oxygen 2-3 liters, but now requiring 4 liters. Plan . 1. Continue with present oxygen. 2. off IV Lasix. worsening renal failure with diuresis. CXR worse as well. will need HD, catheter in am 3. Monitor renal function. 4. P.r.n. bicarbonate. 5. Continue bronchodilators. 6. PFTs as an outpatient. 7. Cough with yellow sputum. add Doxy for acute bronchitis BRY HERNANDEZ MD Aug 27, 2017 11:24
[2017-08-27 12:36] LABS: INR 1.3 (0.8-1.1); PROTHROMBIN TIME PATIENT 15.4 SEC (11.7-14.0)
[2017-08-27 13:16] LABS: HEP A IGM ABDY Negative (Negative); HEP B SURFACE ABDY Non Reactive (.)
[2017-08-27] MEDS ORDERED: IV NORMAL SALINE 1000ML BAG 1,000 ML IV PRN ×2 (13:25)
[2017-08-27] MEDS ORDERED: diphenhydrAMINE 50 MG/ML VIAL IV PRN ×2 (13:30)
[2017-08-27] MEDS ORDERED: DIALYSIS PATIENT. MC PRN (13:30)
[2017-08-27] MEDS ORDERED: ALBUMIN HUMAN 25% 200 ML IV PRN (13:30)
[2017-08-27] MEDS ORDERED: MIDODRINE 5 MG TABLET PO ONE (13:30)
[2017-08-27] MEDS ORDERED: ACETAMINOPHEN 500 MG TABLET PO PRN (13:30)
[2017-08-27] MEDS ORDERED: LABETALOL 20 MG/4 ML DISP.SYRIN. IVP PRN (13:30)
[2017-08-27] MEDS ORDERED: cloNIDine HCL 0.1 MG TABLET PO PRN (13:30)
[2017-08-27] MEDS ORDERED: HEPARIN for IV BOLUS 10,000 UNIT/10 ML VIAL. ONE (13:33)
[2017-08-27] MEDS ORDERED: LIDOCAINE 1% / SOD BICARB 8.4% 20 ML VIAL. IJ ONE ×2 (13:36→14:00)
--- NOTE | 2017-08-27 14:14 | PDOC ---
CARDIO Progress Notes Date and Time Date of Service 08/27/2017 Time of Evaluation 1350 Subjective Subjective: No Chest Pain, No shortness of breath, No Palpitations, Other ( coughing but no SOA and laying flat without respiraatory difficulty) Vitals Vitals Vital Signs Date Time Temp Pulse Resp B/P (MAP) Pulse Ox O2 Delivery O2 Flow Rate FiO2 08/27/17 11:09 97.4 53 22 110/58 (75) 98 Nasal Cannula 3.0 97.4 Weight Weight [ ] Input and Output Intake and Output Intake and Output 08/27/17 07:00 Intake Total 975 ml Balance 975 ml Intake Oral 975 ml # Voids 4 # Bowel Movements 2 Laboratory Labs Laboratory Tests Test 08/26/17 15:40 08/26/17 16:20 08/26/17 21:25 08/27/17 07:56 Hepatitis A IgM Antibody Negative (Negative) Hepatitis B Surface Antigen Negative (Negative) Hepatitis B Surface Antibody Non reactive (.) Hepatitis B Core Total Antibody Negative (Negative) Hepatitis B Core IgM Antibody Negative (Negative) Hepatitis C Antibody <0.1 s/co ratio Glucose (Fingerstick) 163 mg/dL (70-99) 151 mg/dL (70-99) 112 mg/dL (70-99) Test 08/27/17 12:15 Prothrombin Time 15.4 SEC (11.7-14.0) Prothromb Time International Ratio 1.3 (0.8-1.1) Review of Systems Constitutional: yes: alert, oriented Ears/Nose/Throat: Yes: no symptom reported Pulmonary: Yes dyspnea Cardiovascular: Yes edema Gastrointestional: Yes: no symptom reported Musculoskeletal: Yes: no symptom reported Skin: Yes no symptom reported Psychiatric/Neurological: Yes: no symptom reported Physical Exam HEENT: Neck Supple W Full Motion Chest: Symmetric LUNGS: Other (basilar crackles) Heart: S1S2, RRR (SR with intermittent pacing) Abdomen: Soft N/T Extremities: Other (LBKA, 2-3+ RLE pitting edema) Neurology: alert, oriented, follow commands Assessment Assessment 1. Acute on chronic systolic CHF: better. 2. New ESRD: requiring HD 3. ICM: Last EF at 25% 4. AICD in situ: (Biotronik): normal functioning 5. CAD. PCI/BMS to ramus 08/2016. Stable. 6. Accelerated HTN: much better controlled 6. Elevated troponin: peaked at 0.35. Type 2. 7. DM2 with prior hypoglycemic episodes 8. COPD: O2 dependent 9. Noncompliance: reports due to lack of funds. Recommendations 1. Continue with current regimen. DAPT. Will hold effient for 5 days for permacath placement then resume thereafter. Continue with ASA. 2. HD cath today then fluid off loading per HD today 3. Continue with optimization and secondary prevention. Reinforced treatment compliance SAM SEARS SEISMOGRAPHER Aug 27, 2017 14:14
--- NOTE | 2017-08-27 14:30 | PDOC ---
PULMONARY PROGRESS NOTES Subjective NO RESP COMPLAINTS Vitals Vital Signs Date Time Temp Pulse Resp B/P (MAP) Pulse Ox O2 Delivery O2 Flow Rate FiO2 08/27/17 11:09 97.4 53 22 110/58 (75) 98 Nasal Cannula 3.0 97.4 General: Alert HEENT: Other Lungs: Clear Cardiovascular: S1, S2 Abdomen: Soft, Non-tender, Other (OBESE) Neuro Exam: Alert Extremities: Other (EDEMA) Skin: Warm Labs Laboratory Tests Test 08/25/17 16:47 08/25/17 20:45 08/26/17 07:52 08/26/17 11:21 Glucose (Fingerstick) 119 mg/dL (70-99) 110 mg/dL (70-99) 86 mg/dL (70-99) 162 mg/dL (70-99) Test 08/26/17 15:40 08/26/17 16:20 08/26/17 21:25 08/27/17 07:56 Hepatitis A IgM Antibody Negative (Negative) Hepatitis B Surface Antigen Negative (Negative) Hepatitis B Surface Antibody Non reactive (.) Hepatitis B Core Total Antibody Negative (Negative) Hepatitis B Core IgM Antibody Negative (Negative) Hepatitis C Antibody <0.1 s/co ratio Glucose (Fingerstick) 163 mg/dL (70-99) 151 mg/dL (70-99) 112 mg/dL (70-99) Test 08/27/17 12:15 Prothrombin Time 15.4 SEC (11.7-14.0) Prothromb Time International Ratio 1.3 (0.8-1.1) Laboratory Tests Test 08/26/17 15:40 08/26/17 16:20 08/26/17 21:25 08/27/17 07:56 Hepatitis A IgM Antibody Negative (Negative) Hepatitis B Surface Antigen Negative (Negative) Hepatitis B Surface Antibody Non reactive (.) Hepatitis B Core Total Antibody Negative (Negative) Hepatitis B Core IgM Antibody Negative (Negative) Hepatitis C Antibody <0.1 s/co ratio Glucose (Fingerstick) 163 mg/dL (70-99) 151 mg/dL (70-99) 112 mg/dL (70-99) Test 08/27/17 12:15 Prothrombin Time 15.4 SEC (11.7-14.0) Prothromb Time International Ratio 1.3 (0.8-1.1) Medications Active Scripts Medications Dose Route/Sig Max Daily Dose Days Date Category Levothyroxine Sodium 150 Mcg Tablet 150 Mcg PO DAILYAC 08/21/17 Reported Lantus Solostar (Insulin Glargine,Hum.rec.anlog) 100 Unit/1 Ml Insuln.pen 3 Unit SQ HS 08/21/17 Reported Famotidine 20 Mg Tablet 20 Mg PO BID 08/21/17 Reported Effient (Prasugrel Hcl) 10 Mg Tablet 10 Mg PO DAILY 08/21/17 Reported Lisinopril 40 Mg Tablet 40 Mg PO BID 08/21/17 Reported Furosemide 40 Mg Tablet 40 Mg PO DAILY 30 05/20/17 Rx Sodium Bicarbonate 325 Mg Tablet 10 Gr PO BID 12/28/16 Reported Aspirin 81 Mg Tab.chew 1 Tab PO DAILY 12/28/16 Reported Aldactone (Spironolactone) 25 Mg Tablet 25 Mg PO DAILY 09/05/16 Rx Isosorbide Mononitrate Er (Isosorbide Mononitrate) 30 Mg Tab.er.24h 60 Mg PO DAILY 09/05/16 Rx Hydralazine Hcl 25 Mg Tablet 25 Mg PO TID 09/05/16 Rx Carvedilol 6.25 Mg Tablet 6.25 Mg PO BIDWMEALS 09/05/16 Rx Atorvastatin Calcium 10 Mg Tablet 10 Mg PO QHS 09/05/16 Rx Albuterol Sulfate Neb Soln (Albuterol Sulfate) 2.5 Mg/3 Ml Vial.neb 2.5 Mg NEB RTQID 08/26/15 Rx Novolog Flexpen (Insulin Aspart) 100 Unit/1 Ml Insuln.pen 5 Unit SQ TIDWMEALS 08/21/15 Reported Celexa (Citalopram Hydrobromide) 20 Mg Tablet 20 Mg PO DAILY 05/20/14 Reported Vitamin D2 (Ergocalciferol (Vitamin D2)) 50,000 Unit Capsule 50,000 Unit PO WEEKLY 05/20/14 Reported Impression . 1. Acute on chronic systolic heart failure presenting as increasing dyspnea and right lower extremity edema along with interstitial infiltrates on the chest x- ray. 2. Underlying severe cardiomyopathy with an EF of 25%. 3. Acute on chronic renal failure. 4. Underlying chronic obstructive pulmonary disease. Smoked for 45-50 years, unknown FEV1. 5. Acute/Chronic hypoxic respiratory failure, on home oxygen 2-3 liters Plan . perm cath today for HD 1. Continue with present oxygen. 2. follow nephro 3. Monitor renal function. 4. P.r.n. bicarbonate. 5. Continue bronchodilators. 6. PFTs as an outpatient. 7. Cough with yellow sputum. add Doxy for acute bronchitis BRY HERNANDEZ MD Aug 27, 2017 14:30
--- NOTE | 2017-08-27 14:37 | PDOC ---
Dialysis Progress Note Dialysis Note Dialysis Note Seen on Hemodialysis, tolerating treatment Well Vitals on Hemodialysis: 113/57 54 afeb General Appearance: Awake: Alert Oriented x 3 Neck: No JVD or JVP Chest: CTA Zaki Heart: S1 S2 Abdomen - Soft NTND Extremities - + Edema ESRD : Dialysis as below F 180 NR 3.0 Hrs 3 K 2.5 Ca 140 Na 35 HC03 Qb 350 + Qd 500+ Heparin 0 Units Uf 1-2 Kgs or to dry weight as tolerated May give 25-50 gms of 25% Albumin if needed to maintain Hemodynamic stability Treatment plan reviewed and discussed with mercury cracking tester Vitals Vital Signs Vital Signs Date Time Temp Pulse Resp B/P (MAP) Pulse Ox O2 Delivery O2 Flow Rate FiO2 08/27/17 11:09 97.4 53 22 110/58 (75) 98 Nasal Cannula 3.0 97.4 Labs Last Labs Laboratory Tests Test 08/25/17 16:47 08/25/17 20:45 08/26/17 07:52 08/26/17 11:21 Glucose (Fingerstick) 119 mg/dL (70-99) 110 mg/dL (70-99) 86 mg/dL (70-99) 162 mg/dL (70-99) Test 08/26/17 15:40 08/26/17 16:20 08/26/17 21:25 08/27/17 07:56 Hepatitis A IgM Antibody Negative (Negative) Hepatitis B Surface Antigen Negative (Negative) Hepatitis B Surface Antibody Non reactive (.) Hepatitis B Core Total Antibody Negative (Negative) Hepatitis B Core IgM Antibody Negative (Negative) Hepatitis C Antibody <0.1 s/co ratio Glucose (Fingerstick) 163 mg/dL (70-99) 151 mg/dL (70-99) 112 mg/dL (70-99) Test 08/27/17 12:15 Prothrombin Time 15.4 SEC (11.7-14.0) Prothromb Time International Ratio 1.3 (0.8-1.1) Laboratory Tests Test 08/26/17 15:40 08/26/17 16:20 08/26/17 21:25 08/27/17 07:56 Hepatitis A IgM Antibody Negative (Negative) Hepatitis B Surface Antigen Negative (Negative) Hepatitis B Surface Antibody Non reactive (.) Hepatitis B Core Total Antibody Negative (Negative) Hepatitis B Core IgM Antibody Negative (Negative) Hepatitis C Antibody <0.1 s/co ratio Glucose (Fingerstick) 163 mg/dL (70-99) 151 mg/dL (70-99) 112 mg/dL (70-99) Test 08/27/17 12:15 Prothrombin Time 15.4 SEC (11.7-14.0) Prothromb Time International Ratio 1.3 (0.8-1.1) Assessment Assessment Problems Medical Problems: (1) Acute on chronic congestive heart failure Status: Acute (2) Acute on chronic respiratory failure Status: Acute (3) COPD (chronic obstructive pulmonary disease) Status: Acute (4) Elevated troponin Status: Acute (5) End stage renal disease Status: Acute (6) Severe protein-calorie malnutrition Status: Acute (7) Type 2 diabetes mellitus Status: Acute Problems: Plan Plan of Care Problems Medical Problems: (1) Acute on chronic congestive heart failure Status: Acute (2) Acute on chronic respiratory failure Status: Acute (3) COPD (chronic obstructive pulmonary disease) Status: Acute (4) Elevated troponin Status: Acute (5) End stage renal disease Status: Acute (6) Severe protein-calorie malnutrition Status: Acute (7) Type 2 diabetes mellitus Status: Acute JOSE ALBERTO VELAZQUEZ MD Aug 27, 2017 14:36
--- NOTE | 2017-08-27 15:03 | RAD ---
Procedure: Temporary hemodialysis catheter placement under fluoroscopy Clinical Indication: Renal failure Fluoroscopy time: 0.1 minutes dose area product: 1 Gycm2 Sterility: All elements of maximal sterile barrier technique including the use of a cap, mask, sterile gown, sterile gloves, large sterile sheet, appropriate hand hygiene, and 2% chlorhexidine for cutaneous antisepsis (or acceptable alternative antiseptic per current guidelines) were followed for this procedure. Consent: The procedure was explained in its entirety to the patient or the patients designated ambulatory services representative by a member of the treatment team, including a discussion of the risks, benefits and commonly accepted alternatives to the procedure, as well as the expected consequences of no therapy whatsoever. Discussion of the risks included, but was not limited to, those that are most frequent and those that are rare but possibly severe or life-threatening, as well as the possibility of unforeseen complications. The patient was brought to the fluoroscopy suite. A timeout procedure was performed. Technique and Findings: The patient was prepped and draped in the usual sterile fashion. Ultrasound interrogation of the right neck revealed patency and compressibility of the right internal jugular vein. A 21-gauge micropuncture needle was used to gain access to this vein after 1% Lidocaine was used to achieve local anesthesia. A hardcopy ultrasound image was recorded. The needle was exchanged over a wire for serial dilators followed by a 20 cm temporary hemodialysis catheter which was deployed under fluoroscopic guidance such that the distal tip resided in the mid right atrium. The catheter flow rates were assessed manually and found to be excellent. The catheter was then flushed, packed with Heparin, capped, and sutured to the skin. No immediate complications are identified. Impression: Ultrasound and fluoroscopic guided placement of a temporary hemodialysis catheter
[2017-08-27 15:51] LABS: CALCIUM 7.4 mg/dL (8.5-10.1); CREATININE 7.3 mg/dL (0.6-1.0); GFR 5.6; POTASSIUM 4.5 mmol/L (3.5-5.1)
[2017-08-27] MEDS ORDERED: MORPHINE SULFATE 2 MG/ML DISP.SYRIN. IV ONE (16:30)
[2017-08-27 18:05] VITALS: BP 151/62
[2017-08-27] MEDS: CITALOPRAM 20 MG TABLET. PO SCH (18:07)
[2017-08-27] MEDS: LISINOPRIL 20 MG TABLET PO SCH (18:08)
[2017-08-27] MEDS: ASPIRIN CHEWABLE 81 MG TABLET. PO SCH (18:08)
[2017-08-27] MEDS: DOXYCYCLINE HYCLATE 100 MG TABLET PO SCH ×2 (18:08→21:30)
[2017-08-27 19:26] VITALS: BP 166/64
[2017-08-27] MEDS: ATORVASTATIN CALCIUM 10 MG TABLET. PO SCH (21:30)
--- NOTE | 2017-08-27 22:04 | PDOC ---
Provider Note Provider Note Vascular Consult dictated Imp: CRF Plan: Replace Temp. cath with PC and lt arm fistula Humphrey. MACHO BEAL MD Aug 27, 2017 22:04
[2017-08-27 22:40] VITALS: BP 180/78
--- NOTE | 2017-08-28 01:09 | CONS ---
DATE OF CONSULTATION: 08/27/2017 REASON FOR CONSULTATION: Renal failure, need for a chronic access. HISTORY OF PRESENT ILLNESS: This is a 67-year-old female with renal failure, who had temporary dialysis catheter placed yesterday and is now getting dialysis. She will be in need of change in the temporary dialysis catheter to a PermCath and a fistula. She is left handed. She did have bilateral vein mapping and it appears that the cephalic vein is patent and may be of adequate size for fistula in the forearm. PAST MEDICAL HISTORY: She was admitted for shortness of breath, probably due to fluid overload and is feeling better from that now. She has chronic diabetes, heart failure, chronic lung disease and PVD. PAST SURGICAL HISTORY: Prior operations, she has had vascular surgery before with a left below-knee amputation and fem-pop bypass on the right and left, which failed on the left. SOCIAL HISTORY: Presently still smokes some. No history of stroke. PHYSICAL EXAMINATION: GENERAL: Pleasant female in no acute distress. NECK: Temporary dialysis catheter in her right neck. EXTREMITIES: She has got a weak right radial pulse, a little stronger left radial pulse. The left arm is clean. Left below-knee amputation and evidence of prior bypass on the right leg. CARDIAC: Regular heart rate, nonlabored respirations. IMPRESSION: Renal failure with need for access. PLAN: Recommend replacing the temporary dialysis catheter with a buried PermCath and possibly placing a left forearm fistula and this is scheduled for Sunday. The nature of those procedures and the risks were explained to her and she is agreeable to proceed. MACHO STACY MD DR: ARISTIDES/juan c JOB#: [id number] / [id number]
[2017-08-28 02:14] VITALS: BP 164/70
[2017-08-28] MEDS: LEVOTHYROXINE 150 MCG TABLET PO SCH (06:49)
[2017-08-28 07:00] VITALS: BP 152/45
[2017-08-28] MEDS: INSULIN ASPART 300 UNITS/3 ML INSULN.PEN SQ SCH ×6 (08:00→17:00)
--- NOTE | 2017-08-28 08:13 | RAD ---
Indication: Congestive heart failure. Time of exam 0745 hours. Correlation is made with prior study from 08/24/2017. The heart is enlarged but stable. Cardiac defibrillator remains in place. There is a right IJ sheath with tip overlying the SVC. There is central congestion but no overt failure. There appears to be some residual atelectasis in the left base however overall aeration has significantly improved since 4 days earlier. Right lung is fairly clear. No pneumothorax is seen. Impression: Improved aeration to the lungs, particularly the left lung base when compared with exam 4 days earlier.
[2017-08-28] MEDS: CITALOPRAM 20 MG TABLET. PO SCH (08:32)
[2017-08-28] MEDS: DOXYCYCLINE HYCLATE 100 MG TABLET PO SCH ×2 (08:32→21:49)
[2017-08-28] MEDS: FAMOTIDINE 20 MG TABLET. PO SCH (08:32)
[2017-08-28] MEDS: CARVEDILOL 6.25 MG TABLET. PO SCH ×2 (08:33→17:00)
[2017-08-28] MEDS: ASPIRIN CHEWABLE 81 MG TABLET. PO SCH (08:33)
[2017-08-28] MEDS: LISINOPRIL 20 MG TABLET PO SCH (08:33)
[2017-08-28] MEDS: ISOSORBIDE MONONITRATE ER 30 MG TAB.ER.24H PO SCH (08:34)
--- NOTE | 2017-08-28 09:00 | PDOC ---
PROGRESS NOTES Subjective Pt seen and examined. She has no acute complaints this morning and has no pain. During dialysis yesterday she had abdominal pain and was given a one time injection of morphine, She reports confusion after the morphine. This morning she was a/o x3. She reports her breathing is improved from yesterday. Objective Afebrile General: [NAD] Heart: [Regular rate/rhythm] Lungs: [Bilateral clear to auscultation] Abd: [BS present] Vital Signs Vital Signs Date Time Temp Pulse Resp B/P (MAP) Pulse Ox O2 Delivery O2 Flow Rate FiO2 08/28/17 08:34 59 152/45 08/28/17 07:00 98.2 21 91 Nasal Cannula 3.0 98.2 I & O Intake and Output 08/28/17 07:00 Intake Total 100 ml Balance 100 ml Intake Oral 100 ml # Voids 2 # Bowel Movements 1 Assessment and Plan Problems Medical Problems: (1) Acute on chronic congestive heart failure Status: Acute (2) Acute on chronic respiratory failure Status: Acute (3) COPD (chronic obstructive pulmonary disease) Status: Acute (4) Elevated troponin Status: Acute (5) End stage renal disease Status: Acute (6) Severe protein-calorie malnutrition Status: Acute (7) Type 2 diabetes mellitus Status: Acute Plan of Care 1. ESRD - continue dialysis, repeat BMP for Cr and BUN levels 2. HTN - Resuming the Lisinopril to help decrease her proteinuria 3. acute on chronic respiratory failure with COPD - stable, continue O2 and resume home breo in place of nebs. 4. DM2 - well controlled with small doses of SS insulin. 5. CHF with severe cardiomyopathy - presently stable. 6. Anemia - progressing. Not requiring transfusion. Likely related to chronic renal disease Problems: Tristan PENG MD Aug 28, 2017 09:00
[2017-08-28] MEDS: ALBUTEROL SULFATE 2.5 MG/3 ML NEBU. NEB SCH ×4 (09:17→22:03)
[2017-08-28 10:14] LABS: CALCIUM 7.5 mg/dL (8.5-10.1); CREATININE 4.7 mg/dL (0.6-1.0); GFR 9.3
[2017-08-28 11:00] VITALS: BP 124/40
--- NOTE | 2017-08-28 12:11 | PDOC ---
SUBJECTIVE ROS ESRD Feelig a little better today CVS: no Orthopnea, no CP RESP: no SOB, no PLATT GI: no Nausea, no Vomiting : no Dysuria, no Urgency OBJECTIVE Vital Signs Vital Signs Date Time Temp Pulse Resp B/P (MAP) Pulse Ox O2 Delivery O2 Flow Rate FiO2 08/28/17 11:00 98.2 57 17 124/40 (68) 96 Nasal Cannula 3.0 98.2 I & 0 Intake and Output 08/28/17 07:00 Intake Total 100 ml Balance 100 ml Intake Oral 100 ml # Voids 2 # Bowel Movements 1 PHYSICAL EXAM Physical Exam GEN: Awake, Oriented x 3, In no distress EYES: Vision Unchanged, Conjunctiva Normal EN: No EN Drainage, Mucous Membranes moist NECK: no JVD, no JVP, Supple, no Thyromegaly CVS: S1S2, + Murmur, No Gallop, No Rub,+ Edema RESP: rare Rales, no Rhonchi,no Acc. Muscle Use GI: BS + ve, NO Bruit, Non Tender, Non Distended : no CVA tenderness, no Suprapubic Tenderness DIAGNOSIS/ASSESSMENT Assessment & Plan ESRD: Dialysis as below F 180 NR 3.5 Hrs 3 K 2.5 Ca 140 Na 35 HC03 Qb 350 + Qd 500+ Heparin 0 Units Uf 1-2 Kgs or to dry weight as tolerated May give 25-50 gms of 25% Albumin if needed to maintain Hemodynamic stability Treatment plan reviewed and discussed with wad impregnator Nephrotic Syndrome - ct RAAS BLockade agents as long as possible ANEMIA; Aranap as ordered, Transfuse with next HD as needed HTN: currently lowish - may need to D/c Imdur and hydralazine. Current BP meds as reviewed. See orders for changes. BONE & MINERAL: follow phos and alter binder regimen as needed Discussed Plan of Care with pt at bedside COMMENT/RELEVANT DATA Meds Current Medications Medications (Trade) Dose Ordered Sig/Slick Start Time Stop Time Status Last Admin Dose Admin Acetaminophen (Tylenol) 500 mg 1X PRN PRN 08/27/17 13:30 08/28/17 13:29 Albumin Human 200 ml @ 200 mls/hr 1X PRN PRN 08/27/17 13:30 08/27/17 19:29 DC Albuterol Sulfate (Ventolin Neb Soln) 2.5 mg RTQID 08/22/17 09:00 08/28/17 09:17 2.5 MG Albuterol/ Ipratropium (Duoneb) 3 ml RTQID 08/22/17 08:00 08/22/17 09:06 DC 08/22/17 07:18 3 ML Aspirin (Children'S Aspirin) 81 mg DAILY 08/22/17 09:00 08/28/17 08:33 81 MG Atorvastatin Calcium (Lipitor) 10 mg QHS 08/22/17 21:00 08/27/17 21:30 10 MG Carvedilol (Coreg) 6.25 mg BIDWMEALS 08/22/17 09:00 08/28/17 08:33 6.25 MG Cefazolin Sodium 2 gm/Sodium Chloride 50 ml @ 100 mls/hr 1X PREOP PRN 08/28/17 06:00 08/28/17 15:00 Cefazolin Sodium/ Dextrose 50 ml @ 100 mls/hr 1X PREOP PRN 08/28/17 06:00 08/28/17 18:00 UNV Citalopram Hydrobromide (CeleXA) 20 mg DAILY 08/22/17 09:00 08/28/17 08:32 20 MG Clonidine HCl (Catapres) 0.1 mg 1X PRN PRN 08/27/17 13:30 08/27/17 14:39 DC Darbepoetin Darwin (Aranesp) 60 mcg We 08/22/17 21:00 08/22/17 21:10 60 MCG Dextrose (Dextrose 50%-Water Syringe) 12.5 gm PRN Q15MIN PRN 08/22/17 08:45 Diphenhydramine HCl (Benadryl) 25 mg 1X PRN PRN 08/27/17 13:30 08/28/17 13:29 Cancel Doxycycline Hyclate (Vibra-Tab) 100 mg BID 08/26/17 14:00 08/28/17 08:32 100 MG Ergocalciferol (Vitamin D2) 50,000 unit Th 08/22/17 10:00 08/23/17 08:53 50,000 UNIT Famotidine (Pepcid) 20 mg DAILY 08/22/17 09:00 08/28/17 08:32 20 MG Furosemide (Lasix) 40 mg Q8HRS 08/22/17 14:00 08/26/17 12:54 DC 08/26/17 06:08 40 MG Heparin Sodium (Porcine) (Heparin Sodium) 2,600 unit 1X ONCE 08/27/17 14:00 08/27/17 14:01 DC 08/27/17 14:05 2,600 UNIT Hydralazine HCl (Apresoline) 25 mg TID 08/22/17 09:00 08/26/17 12:54 DC 08/26/17 08:42 25 MG Info (PHARMACY MONITORING -- do not chart) 1 each PRN DAILY PRN 08/27/17 13:30 Insulin Aspart (NovoLOG) 0-5 UNITS TIDWMEALS 08/22/17 12:00 08/26/17 17:41 2 UNITS Isosorbide Mononitrate (Imdur) 30 mg DAILY 08/28/17 09:00 08/28/17 08:34 30 MG Labetalol HCl (Normodyne) 10 mg PRN Q1HR PRN 08/27/17 13:30 08/28/17 13:29 Levothyroxine Sodium (Synthroid) 150 mcg DAILY07 08/22/17 10:30 08/28/17 06:49 150 MCG Lidocaine/Sodium Bicarbonate (Buffered Lidocaine 1%) 20 ml 1X ONCE 08/27/17 14:00 08/27/17 14:01 DC 08/27/17 14:05 20 ML Lisinopril (Prinivil) 20 mg DAILY 08/27/17 09:00 08/28/17 08:33 20 MG Midodrine (Proamatine) 5 mg 1X ONCE 08/27/17 13:30 08/27/17 14:39 DC Morphine Sulfate 2 mg 1X ONCE 08/27/17 16:30 08/27/17 16:31 DC 08/27/17 16:34 2 MG Nicardipine HCl 50 mg/Sodium Chloride 270 ml @ 25 mls/hr CONT PRN 08/21/17 20:30 08/24/17 13:02 DC 08/21/17 22:12 25 MLS/HR Ondansetron HCl (Zofran) 4 mg PRN Q8HRS PRN 08/22/17 00:00 08/22/17 23:59 DC Prasugrel (Effient) 10 mg DAILY 08/22/17 09:00 08/27/17 15:55 DC 08/26/17 11:13 10 MG Sodium Bicarbonate (Sodium Bicarbonate) 325 mg BID 08/22/17 09:00 08/27/17 14:39 DC 08/26/17 21:55 325 MG Sodium Chloride 1,000 ml @ 400 mls/hr Q2H30M PRN 08/27/17 13:25 08/28/17 01:24 DC Spironolactone (Aldactone) 25 mg DAILY 08/22/17 09:00 08/27/17 14:39 DC 08/26/17 08:42 25 MG Lab Laboratory Tests Test 08/27/17 12:15 08/27/17 14:25 08/27/17 18:02 08/27/17 20:33 Prothrombin Time 15.4 SEC (11.7-14.0) Prothromb Time International Ratio 1.3 (0.8-1.1) Sodium Level 135 mmol/L (136-145) Potassium Level 4.5 mmol/L (3.5-5.1) Chloride Level 101 mmol/L (98-107) Carbon Dioxide Level 21 mmol/L (21-32) Anion Gap 13 (6-14) Blood Urea Nitrogen 116 mg/dL (7-20) Creatinine 7.3 mg/dL (0.6-1.0) Estimated GFR (Cockcroft-Gault) 5.6 Glucose Level 98 mg/dL (70-99) Calcium Level 7.4 mg/dL (8.5-10.1) 25-Hydroxy Vitamin D Total 21.6 ng/mL (30-100) Glucose (Fingerstick) 89 mg/dL (70-99) 87 mg/dL (70-99) Test 08/28/17 07:12 08/28/17 09:45 08/28/17 11:38 Glucose (Fingerstick) 82 mg/dL (70-99) 133 mg/dL (70-99) Sodium Level 138 mmol/L (136-145) Potassium Level 4.0 mmol/L (3.5-5.1) Chloride Level 100 mmol/L (98-107) Carbon Dioxide Level 29 mmol/L (21-32) Anion Gap 9 (6-14) Blood Urea Nitrogen 64 mg/dL (7-20) Creatinine 4.7 mg/dL (0.6-1.0) Estimated GFR (Cockcroft-Gault) 9.3 Glucose Level 134 mg/dL (70-99) Calcium Level 7.5 mg/dL (8.5-10.1) JOSE ALBERTO VELAZQUEZ MD Aug 28, 2017 12:11
--- NOTE | 2017-08-28 12:33 | PDOC ---
SAM SEARS CORPORATE RECYCLING MANAGER 08/28/17 1233: CARDIO Progress Notes Date and Time Date of Service 08/28/2017 Time of Evaluation 1220 Subjective Subjective: No Chest Pain, No shortness of breath, No Palpitations, Other ( eating while laying flat without difficulty) Vitals Vitals Vital Signs Date Time Temp Pulse Resp B/P (MAP) Pulse Ox O2 Delivery O2 Flow Rate FiO2 08/28/17 11:00 98.2 57 17 124/40 (68) 96 Nasal Cannula 3.0 98.2 Weight Weight [ ] Input and Output Intake and Output Intake and Output 08/28/17 07:00 Intake Total 100 ml Balance 100 ml Intake Oral 100 ml # Voids 2 # Bowel Movements 1 Laboratory Labs Laboratory Tests Test 08/27/17 14:25 08/27/17 18:02 08/27/17 20:33 08/28/17 07:12 Sodium Level 135 mmol/L (136-145) Potassium Level 4.5 mmol/L (3.5-5.1) Chloride Level 101 mmol/L (98-107) Carbon Dioxide Level 21 mmol/L (21-32) Anion Gap 13 (6-14) Blood Urea Nitrogen 116 mg/dL (7-20) Creatinine 7.3 mg/dL (0.6-1.0) Estimated GFR (Cockcroft-Gault) 5.6 Glucose Level 98 mg/dL (70-99) Calcium Level 7.4 mg/dL (8.5-10.1) 25-Hydroxy Vitamin D Total 21.6 ng/mL (30-100) Glucose (Fingerstick) 89 mg/dL (70-99) 87 mg/dL (70-99) 82 mg/dL (70-99) Test 08/28/17 09:45 08/28/17 11:38 Sodium Level 138 mmol/L (136-145) Potassium Level 4.0 mmol/L (3.5-5.1) Chloride Level 100 mmol/L (98-107) Carbon Dioxide Level 29 mmol/L (21-32) Anion Gap 9 (6-14) Blood Urea Nitrogen 64 mg/dL (7-20) Creatinine 4.7 mg/dL (0.6-1.0) Estimated GFR (Cockcroft-Gault) 9.3 Glucose Level 134 mg/dL (70-99) Calcium Level 7.5 mg/dL (8.5-10.1) Glucose (Fingerstick) 133 mg/dL (70-99) Review of Systems Constitutional: yes: alert, oriented Ears/Nose/Throat: Yes: no symptom reported Pulmonary: Yes dyspnea Cardiovascular: Yes edema Gastrointestional: Yes: no symptom reported Musculoskeletal: Yes: no symptom reported Skin: Yes no symptom reported Psychiatric/Neurological: Yes: no symptom reported Physical Exam HEENT: Neck Supple W Full Motion Chest: Symmetric LUNGS: Other (faint basilar crackles) Heart: S1S2, RRR (SR with intermittent pacing) Abdomen: Soft N/T Extremities: Other (LBKA, 2-3+ RLE pitting edema) Neurology: alert, oriented, follow commands Assessment Assessment 1. Acute on chronic systolic CHF: compensated 2. New ESRD 3. ICM: Last EF at 25% 4. AICD in situ: (Biotronik): normal functioning 5. CAD. PCI/BMS to ramus 08/2016. Stable. 6. Accelerated HTN: much better controlled 6. Elevated troponin: peaked at 0.35. Type 2. 7. DM2 with prior hypoglycemic episodes 8. COPD: O2 dependent 9. Noncompliance: financial constraints Recommendations 1. Continue with current regimen. DAPT. May hold effient for 5 days post permacath placement then resume thereafter. Continue with ASA. 2. Fluid off loading per HD. Add imdur to regimen. 3. Continue with optimization and secondary prevention. Reinforced treatment compliance 4. Follow up in office as scheduled LAURA RIVERA MD 08/29/17 1143: CARDIO Progress Notes Plan Plan Late entry for 08/28/2017. Patient seen and examined. Agree with above nurse practitioner note. Supportive care from a cardiac standpoint. SAM SEARS APRN Aug 28, 2017 12:33 LAURA RIVERA MD Aug 29, 2017 11:43
[2017-08-28 15:00] VITALS: BP 100/51
--- NOTE | 2017-08-28 15:09 | PDOC ---
PULMONARY PROGRESS NOTES Subjective NO RESP COMPLAINTS Vitals Vital Signs Date Time Temp Pulse Resp B/P (MAP) Pulse Ox O2 Delivery O2 Flow Rate FiO2 08/28/17 11:00 98.2 57 17 124/40 (68) 96 Nasal Cannula 3.0 98.2 General: Alert HEENT: Other Lungs: Clear Cardiovascular: S1, S2 Abdomen: Soft, Non-tender, Other (OBESE) Neuro Exam: Alert Extremities: Other (EDEMA) Skin: Warm Labs Laboratory Tests Test 08/26/17 15:40 08/26/17 16:20 08/26/17 21:25 08/27/17 07:56 Hepatitis A IgM Antibody Negative (Negative) Hepatitis B Surface Antigen Negative (Negative) Hepatitis B Surface Antibody Non reactive (.) Hepatitis B Core Total Antibody Negative (Negative) Hepatitis B Core IgM Antibody Negative (Negative) Hepatitis C Antibody <0.1 s/co ratio Glucose (Fingerstick) 163 mg/dL (70-99) 151 mg/dL (70-99) 112 mg/dL (70-99) Test 08/27/17 11:39 08/27/17 12:15 08/27/17 14:25 08/27/17 18:02 Glucose (Fingerstick) 108 mg/dL (70-99) 89 mg/dL (70-99) Prothrombin Time 15.4 SEC (11.7-14.0) Prothromb Time International Ratio 1.3 (0.8-1.1) Sodium Level 135 mmol/L (136-145) Potassium Level 4.5 mmol/L (3.5-5.1) Chloride Level 101 mmol/L (98-107) Carbon Dioxide Level 21 mmol/L (21-32) Anion Gap 13 (6-14) Blood Urea Nitrogen 116 mg/dL (7-20) Creatinine 7.3 mg/dL (0.6-1.0) Estimated GFR (Cockcroft-Gault) 5.6 Glucose Level 98 mg/dL (70-99) Calcium Level 7.4 mg/dL (8.5-10.1) 25-Hydroxy Vitamin D Total 21.6 ng/mL (30-100) Test 08/27/17 20:33 08/28/17 07:12 08/28/17 09:45 08/28/17 11:38 Glucose (Fingerstick) 87 mg/dL (70-99) 82 mg/dL (70-99) 133 mg/dL (70-99) Sodium Level 138 mmol/L (136-145) Potassium Level 4.0 mmol/L (3.5-5.1) Chloride Level 100 mmol/L (98-107) Carbon Dioxide Level 29 mmol/L (21-32) Anion Gap 9 (6-14) Blood Urea Nitrogen 64 mg/dL (7-20) Creatinine 4.7 mg/dL (0.6-1.0) Estimated GFR (Cockcroft-Gault) 9.3 Glucose Level 134 mg/dL (70-99) Calcium Level 7.5 mg/dL (8.5-10.1) Laboratory Tests Test 08/27/17 18:02 08/27/17 20:33 08/28/17 07:12 08/28/17 09:45 Glucose (Fingerstick) 89 mg/dL (70-99) 87 mg/dL (70-99) 82 mg/dL (70-99) Sodium Level 138 mmol/L (136-145) Potassium Level 4.0 mmol/L (3.5-5.1) Chloride Level 100 mmol/L (98-107) Carbon Dioxide Level 29 mmol/L (21-32) Anion Gap 9 (6-14) Blood Urea Nitrogen 64 mg/dL (7-20) Creatinine 4.7 mg/dL (0.6-1.0) Estimated GFR (Cockcroft-Gault) 9.3 Glucose Level 134 mg/dL (70-99) Calcium Level 7.5 mg/dL (8.5-10.1) Test 08/28/17 11:38 Glucose (Fingerstick) 133 mg/dL (70-99) Medications Active Scripts Medications Dose Route/Sig Max Daily Dose Days Date Category Levothyroxine Sodium 150 Mcg Tablet 150 Mcg PO DAILYAC 08/21/17 Reported Lantus Solostar (Insulin Glargine,Hum.rec.anlog) 100 Unit/1 Ml Insuln.pen 3 Unit SQ HS 08/21/17 Reported Famotidine 20 Mg Tablet 20 Mg PO BID 08/21/17 Reported Effient (Prasugrel Hcl) 10 Mg Tablet 10 Mg PO DAILY 08/21/17 Reported Lisinopril 40 Mg Tablet 40 Mg PO BID 08/21/17 Reported Furosemide 40 Mg Tablet 40 Mg PO DAILY 30 8/27/17 Rx Sodium Bicarbonate 325 Mg Tablet 10 Gr PO BID 12/28/16 Reported Aspirin 81 Mg Tab.chew 1 Tab PO DAILY 12/28/16 Reported Aldactone (Spironolactone) 25 Mg Tablet 25 Mg PO DAILY 09/05/16 Rx Isosorbide Mononitrate Er (Isosorbide Mononitrate) 30 Mg Tab.er.24h 60 Mg PO DAILY 09/05/16 Rx Hydralazine Hcl 25 Mg Tablet 25 Mg PO TID 09/05/16 Rx Carvedilol 6.25 Mg Tablet 6.25 Mg PO BIDWMEALS 09/05/16 Rx Atorvastatin Calcium 10 Mg Tablet 10 Mg PO QHS 09/05/16 Rx Albuterol Sulfate Neb Soln (Albuterol Sulfate) 2.5 Mg/3 Ml Vial.neb 2.5 Mg NEB RTQID 08/26/15 Rx Novolog Flexpen (Insulin Aspart) 100 Unit/1 Ml Insuln.pen 5 Unit SQ TIDWMEALS 08/21/15 Reported Celexa (Citalopram Hydrobromide) 20 Mg Tablet 20 Mg PO DAILY 05/20/14 Reported Vitamin D2 (Ergocalciferol (Vitamin D2)) 50,000 Unit Capsule 50,000 Unit PO WEEKLY 05/20/14 Reported Impression . 1. Acute on chronic systolic heart failure presenting as increasing dyspnea and right lower extremity edema along with interstitial infiltrates on the chest x- ray. 2. Underlying severe cardiomyopathy with an EF of 25%. 3. Acute on chronic renal failure. 4. Underlying chronic obstructive pulmonary disease. Smoked for 45-50 years, unknown FEV1. 5. Acute/Chronic hypoxic respiratory failure, on home oxygen 2-3 liters Plan . perm cath today for HD AV GRAFT IN FUTURE 1. Continue with present oxygen. 2. follow nephro 3. Monitor renal function. 4. P.r.n. bicarbonate. 5. Continue bronchodilators. 6. PFTs as an outpatient. 7. Cough with yellow sputum. add Doxy for acute bronchitis BRY HERNANDEZ MD Aug 28, 2017 15:09
[2017-08-28] MEDS ORDERED: DIALYSIS PATIENT. MC PRN ×2 (18:30)
[2017-08-28 21:49] VITALS: BP 160/46
[2017-08-28] MEDS: ATORVASTATIN CALCIUM 10 MG TABLET. PO SCH (21:49)
[2017-08-28] MEDS: LACTOBACILLUS RHAMNOSUS GG 1 CAPSULE. PO SCH (21:49)
[2017-08-28 23:00] VITALS: BP 140/57
[2017-08-29 03:00] VITALS: BP 150/48
[2017-08-29] MEDS ORDERED: HEPARIN SODIUM 5,000 UNIT in IV NORMAL SALINE 500ML BAG 500 ML IRR ONE (06:00)
[2017-08-29] MEDS: LEVOTHYROXINE 150 MCG TABLET PO SCH (06:26)
[2017-08-29 07:00] VITALS: BP 130/41
[2017-08-29] MEDS ORDERED: PROCHLORPERAZINE 10 MG/2 ML VIAL. IV PRN (07:00)
[2017-08-29] MEDS ORDERED: fentaNYL PF VIAL 100 MCG/2 ML VIAL IV PRN ×2 (07:00)
[2017-08-29] MEDS ORDERED: ONDANSETRON PF 4 MG/2 ML VIAL. IV PRN (07:00)
[2017-08-29] MEDS ORDERED: HYDROmorphone 2 MG/ML VIAL IV PRN (07:00)
[2017-08-29] MEDS ORDERED: LIDOCAINE 1% PF 2 ML VIAL. ID PRN (07:00)
[2017-08-29] MEDS ORDERED: MORPHINE SULFATE 2 MG/ML DISP.SYRIN. IV PRN (07:00)
[2017-08-29] MEDS ORDERED: IV RINGERS,LACTATED 1000ML 1,000 ML IV SCH (07:00)
[2017-08-29] MEDS ORDERED: IV NORMAL SALINE 1000ML BAG 1,000 ML IV PRN ×2 (07:35)
[2017-08-29] MEDS ORDERED: SURGICEL HEMOSTAT 4X8 EACH. ONE (07:35)
[2017-08-29] MEDS ORDERED: LIDOCAINE 1% 20 ML VIAL. ONE (07:35)
[2017-08-29] MEDS: ALBUTEROL SULFATE 2.5 MG/3 ML NEBU. NEB SCH ×4 (07:43→20:09)
[2017-08-29] MEDS ORDERED: LABETALOL 20 MG/4 ML DISP.SYRIN. IVP PRN (07:45)
[2017-08-29] MEDS ORDERED: 0.9 % SODIUM CHLORIDE 10 ML DISP.SYRIN. IV PRN ×2 (07:45)
[2017-08-29] MEDS ORDERED: DIALYSIS PATIENT. MC PRN (07:45)
[2017-08-29] MEDS: INSULIN ASPART 300 UNITS/3 ML INSULN.PEN SQ SCH ×6 (08:00→20:20)
[2017-08-29] MEDS: CARVEDILOL 6.25 MG TABLET. PO SCH ×2 (08:00→20:24)
[2017-08-29] MEDS: ISOSORBIDE MONONITRATE ER 30 MG TAB.ER.24H PO SCH (09:00)
[2017-08-29] MEDS: LISINOPRIL 20 MG TABLET PO SCH (09:00)
[2017-08-29] MEDS ORDERED: HEPARIN for IV BOLUS 10,000 UNIT/10 ML VIAL. ONE ×2 (09:26→11:05)
[2017-08-29] MEDS ORDERED: DEXAMETHASONE SOD PHOS 20 MG/5 ML VIAL. ONE (09:26)
[2017-08-29] MEDS ORDERED: SEVOFLURANE 61 TO 120 MINUTES. IH ONE (09:26)
[2017-08-29] MEDS ORDERED: PROPOFOL 20 ML IV ONE (09:26)
[2017-08-29] MEDS ORDERED: ONDANSETRON PF 4 MG/2 ML VIAL. ONE (09:26)
[2017-08-29] MEDS ORDERED: LIDOCAINE 2% PF Vial for OR 5 ML VIAL. ONE (09:26)
[2017-08-29] MEDS ORDERED: MIDAZOLAM HCL/PF 2 MG/2 ML VIAL. ONE (09:26)
[2017-08-29] MEDS ORDERED: fentaNYL PF VIAL 100 MCG/2 ML VIAL ONE (09:26)
[2017-08-29] MEDS: IV NORMAL SALINE 1000ML BAG 1,000 ML IV SCH (10:00)
[2017-08-29] MEDS ORDERED: ePHEDrine PF IN SALINE 50 MG/5 ML DISP.SYRIN IV ONE (10:42)
[2017-08-29] MEDS ORDERED: HEPARIN SODIUM 10,000 UNIT/10 ML VIAL. INT CAT ONE (10:56)
[2017-08-29] MEDS ORDERED: SURGICEL FIBRILLAR 1X2 EACH. ONE (11:31)
--- NOTE | 2017-08-29 11:49 | PDOC ---
BRIEF OPERATIVE NOTE Date: Aug 29, 2017 Pre-Op Diagnosis ESRD Post-Op Diagnosis same Procedure Performed Replacement right internal jugular catheter to tunneled permacath Left brachio-cephalic fistula Surgeon Dr. Colon Java Lead Anil Mcguire, DONNIE Anesthesia Type: General Blood Loss 50cc Specimens Obtained none Findings palpable thrill avf Complications none Operative Note see dictated operative note ANIL MCGUIRE TRAIN ENGINEER Aug 29, 2017 11:49
[2017-08-29] MEDS ORDERED: ACETAMINOPHEN 500 MG TABLET PO PRN (12:00)
--- NOTE | 2017-08-29 13:04 | OP ---
DATE OF SURGERY: 08/29/2017 PREOPERATIVE DIAGNOSIS: Renal failure with a temporary catheter. POSTOPERATIVE DIAGNOSIS: Renal failure with a temporary catheter. PROCEDURES PERFORMED: 1. Replacement of temporary dialysis catheter with a PermCath using cutdown and fluoroscopy. 2. Placement of a left antecubital arteriovenous fistula into the cephalic vein. SURGEON: Saul Colon MD BURR PICKER: Janey Hansen. ANESTHETIC: General. DESCRIPTION OF PROCEDURE: After general endotracheal anesthetic, prepping and draping, an incision was made just inside the entry site of the temporary catheter. This was carried down through the subcutaneous tissue to the catheter. The catheter was clamped, pulled out a little bit and divided and the external part removed. The pursestring suture of 4-0 Prolene was placed around the catheter. Guidewire passed into the catheter and inserted as the old catheter was removed leaving the guidewire in place. Dilator and sheath was then passed over the guidewire. The catheter filled with heparin locked and brought in through a separate stab incision and then advanced through the sheath as the peel-away sheath was removed and the pursestring suture was then tightened and tied. The position of the catheter was seen to be in the superior vena cava. On fluoroscopy, there was good aspiration of blood from each port. Each port irrigated easily with heparinized saline solution and packed with a couple mL of 1000 units of heparin per mL. Locks and caps were applied. The neck incision was then irrigated and closed with subcutaneous Vicryl, subcuticular Vicryl, Mastisol and Steri-Strips. Catheter secured to the skin with a nylon stitch. Sterile dressings eventually applied. Left arm incision was made at the antecubital area. Incision made, bleeding controlled with cautery. Very nice cephalic vein was dissected out and ligated distally and a deep vein ligated, so once those two vessels were ligated, the vein divided, bleeding controlled with a clamp and the vein was spatulated through those two orifices. Heparin irrigated easily up into the vein. Fascia was divided. The brachial artery was identified and clamped and arteriotomy made, extended with Campuzano scissors. The vein was anastomosed to the side of the artery using a 7-0 Prolene stitch. Clamps were then released and good flow was allowed through the vein, dilated up nicely. There was a fairly large side branch within the confines of the incision going laterally and this was ligated between silk ties and Hemoclips. Then, the wound was irrigated and closed with subcutaneous Vicryl, subcuticular Vicryl, Mastisol, Steri-Strips. Sterile dressings were applied. She tolerated the procedure well and left the operating room in stable condition. ESTIMATED BLOOD LOSS: [address] SA[address]ON MD [address]: ARISTIDES/juan c JOB#: [id number] / [id number]
[2017-08-29] MEDS: CITALOPRAM 20 MG TABLET. PO SCH (13:09)
[2017-08-29] MEDS: FAMOTIDINE 20 MG TABLET. PO SCH (13:09)
[2017-08-29] MEDS: DOXYCYCLINE HYCLATE 100 MG TABLET PO SCH ×2 (13:10→20:23)
[2017-08-29] MEDS: ASPIRIN CHEWABLE 81 MG TABLET. PO SCH (13:10)
[2017-08-29] MEDS: LACTOBACILLUS RHAMNOSUS GG 1 CAPSULE. PO SCH ×2 (13:10→20:23)
[2017-08-29] MEDS: HYDROcodone/APAP 5/325MG 1 TAB TABLET PO PRN ×2 (13:22→20:25)
--- NOTE | 2017-08-29 14:45 | PDOC ---
SUBJECTIVE ROS ESRD Doign well today; just back from OR - going to HD soon CVS: no Orthopnea, no CP RESP: no SOB, no PLATT GI: no Nausea, no Vomiting : no Dysuria, no Urgency OBJECTIVE Vital Signs Vital Signs Date Time Temp Pulse Resp B/P (MAP) Pulse Ox O2 Delivery O2 Flow Rate FiO2 08/29/17 13:22 Nasal Cannula 3.0 08/29/17 12:31 68 16 160/65 95 08/29/17 12:16 97.4 97.4 I & 0 Intake and Output 08/29/17 07:00 Intake Total 1720 ml Output Total 200 ml Balance 1520 ml Intake Oral 1720 ml Output Urine Total 200 ml # Voids 2 # Bowel Movements 1 PHYSICAL EXAM Physical Exam GEN: Awake, Oriented x 3, In no distress EYES: Vision Unchanged, Conjunctiva Normal EN: No EN Drainage, Mucous Membranes moist NECK: no JVD, no JVP, Supple, no Thyromegaly CVS: S1S2, + Murmur, No Gallop, No Rub,+ Edema RESP: rare Rales, no Rhonchi,no Acc. Muscle Use GI: BS + ve, NO Bruit, Non Tender, Non Distended : no CVA tenderness, no Suprapubic Tenderness DIAGNOSIS/ASSESSMENT Assessment & Plan ESRD: Dialysis as below F 180 NR 3.0 Hrs 3 K 2.5 Ca 140 Na 35 HC03 Qb 350 + Qd 500+ Heparin 0 Units Uf 1-2 Kgs or to dry weight as tolerated May give 25-50 gms of 25% Albumin if needed to maintain Hemodynamic stability Treatment plan reviewed and discussed with towerman Nephrotic Syndrome - ct RAAS Blockade agents as long as possible ANEMIA; Aranesp as ordered, Transfuse with next HD as needed HTN: currently lowish - may need to D/c Imdur and hydralazine. Current BP meds as reviewed. See orders for changes. BONE & MINERAL: follow phos and alter binder regimen as needed Discussed Plan of Care with pt at bedside COMMENT/RELEVANT DATA Meds Current Medications Medications (Trade) Dose Ordered Sig/Slick Start Time Stop Time Status Last Admin Dose Admin Acetaminophen (Tylenol) 500 mg PRN Q6HRS PRN 08/29/17 12:00 Acetaminophen/ Hydrocodone Bitart (Lortab 5/325) 1 tab PRN Q4HRS PRN 08/29/17 12:00 08/29/17 13:22 1 TAB Albumin Human 200 ml @ 200 mls/hr 1X PRN PRN 08/27/17 13:30 08/27/17 19:29 DC Albuterol Sulfate (Ventolin Neb Soln) 2.5 mg RTQID 08/22/17 09:00 08/29/17 07:43 2.5 MG Albuterol/ Ipratropium (Duoneb) 3 ml RTQID 08/22/17 08:00 08/22/17 09:06 DC 08/22/17 07:18 3 ML Aspirin (Children'S Aspirin) 81 mg DAILY 08/22/17 09:00 08/29/17 13:10 81 MG Atorvastatin Calcium (Lipitor) 10 mg QHS 08/22/17 21:00 08/28/17 21:49 10 MG Carvedilol (Coreg) 6.25 mg BIDWMEALS 08/22/17 09:00 08/28/17 08:33 6.25 MG Cefazolin Sodium 1 gm/Sodium Chloride 500 ml @ 500 mls/hr 1X PERIOP ONCE 08/29/17 06:00 08/29/17 06:59 DC 08/29/17 10:56 Cefazolin Sodium 2 gm/Sodium Chloride 50 ml @ 100 mls/hr 1X PREOP PRN 08/29/17 10:45 08/29/17 11:00 DC Cefazolin Sodium/ Dextrose 50 ml @ 100 mls/hr 1X PREOP PRN 08/28/17 06:00 08/28/17 18:00 UNV Cellulose 1 each STK-MED ONCE 08/29/17 11:31 08/29/17 11:32 DC Citalopram Hydrobromide (CeleXA) 20 mg DAILY 08/22/17 09:00 08/29/17 13:09 20 MG Clonidine HCl (Catapres) 0.1 mg 1X PRN PRN 08/27/17 13:30 08/27/17 14:39 DC Darbepoetin Darwin (Aranesp) 60 mcg We 08/22/17 21:00 08/22/17 21:10 60 MCG Dexamethasone Sodium Phosphate (Decadron) 20 mg STK-MED ONCE 08/29/17 09:26 08/29/17 09:27 DC Dextrose (Dextrose 50%-Water Syringe) 12.5 gm PRN Q15MIN PRN 08/22/17 08:45 Diphenhydramine HCl (Benadryl) 25 mg 1X PRN PRN 08/27/17 13:30 08/28/17 13:29 Cancel Doxycycline Hyclate (Vibra-Tab) 100 mg BID 08/26/17 14:00 08/29/17 13:10 100 MG Ephedrine Sulfate (ePHEDrine PF IN SALINE SYRINGE) 50 mg STK-MED ONCE 08/29/17 10:42 08/29/17 10:43 DC Ergocalciferol (Vitamin D2) 50,000 unit Th 08/22/17 10:00 08/23/17 08:53 50,000 UNIT Famotidine (Pepcid) 20 mg Q48H 08/30/17 09:00 Fentanyl Citrate (Fentanyl 2ml Vial) 100 mcg STK-MED ONCE 08/29/17 09:26 08/29/17 09:27 DC Furosemide (Lasix) 40 mg Q8HRS 08/22/17 14:00 08/26/17 12:54 DC 08/26/17 06:08 40 MG Heparin Sodium (Porcine) (Heparin Sodium) 10,000 unit STK-MED ONCE 08/29/17 10:56 08/29/17 11:22 DC 08/29/17 10:56 5,000 UNIT Heparin Sodium (Porcine) 5000 unit/Sodium Chloride 505 ml @ 505 mls/hr 1X PERIOP ONCE 08/29/17 06:00 08/29/17 06:59 DC 08/29/17 10:56 Hydralazine HCl (Apresoline) 25 mg TID 08/22/17 09:00 08/26/17 12:54 DC 08/26/17 08:42 25 MG Hydromorphone HCl (Dilaudid) 0.5 mg PRN Q10MIN PRN 08/29/17 07:00 08/30/17 06:59 Info (PHARMACY MONITORING -- do not chart) 1 each PRN DAILY PRN 08/29/17 07:45 UNV Insulin Aspart (NovoLOG) 0-5 UNITS TIDWMEALS 08/22/17 12:00 08/26/17 17:41 2 UNITS Isosorbide Mononitrate (Imdur) 30 mg DAILY 08/28/17 09:00 08/28/17 08:34 30 MG Labetalol HCl (Normodyne) 10 mg PRN Q1HR PRN 08/29/17 07:45 08/30/17 07:44 Lactobacillus Rhamnosus (Culturelle) 1 cap BID 08/28/17 21:00 08/29/17 13:10 1 CAP Levothyroxine Sodium (Synthroid) 150 mcg DAILY07 08/22/17 10:30 08/28/17 06:49 150 MCG Lidocaine HCl (Lidocaine Pf 2% Vial) 5 ml STK-MED ONCE 08/29/17 09:26 08/29/17 09:27 DC Lidocaine HCl (Xylocaine-Mpf 1% Vial) 2 ml PRN 1X PRN 08/29/17 07:00 08/30/17 06:59 Lidocaine/Sodium Bicarbonate (Buffered Lidocaine 1%) 20 ml 1X ONCE 08/27/17 14:00 08/27/17 14:01 DC 08/27/17 14:05 20 ML Lisinopril (Prinivil) 20 mg DAILY 08/27/17 09:00 08/28/17 08:33 20 MG Midazolam HCl (Versed) 2 mg STK-MED ONCE 08/29/17 09:26 08/29/17 09:27 DC Midodrine (Proamatine) 5 mg 1X ONCE 08/27/17 13:30 08/27/17 14:39 DC Morphine Sulfate 1 mg PRN Q10MIN PRN 08/29/17 07:00 08/30/17 06:59 Nicardipine HCl 50 mg/Sodium Chloride 270 ml @ 25 mls/hr CONT PRN 08/21/17 20:30 08/24/17 13:02 DC 08/21/17 22:12 25 MLS/HR Ondansetron HCl (Zofran) 4 mg STK-MED ONCE 08/29/17 09:26 08/29/17 09:27 DC Prasugrel (Effient) 10 mg DAILY 08/22/17 09:00 08/27/17 15:55 DC 08/26/17 11:13 10 MG Prochlorperazine Edisylate (Compazine) 5 mg PACU PRN PRN 08/29/17 07:00 08/30/17 06:59 Propofol 20 ml @ As Directed STK-MED ONCE 08/29/17 09:26 08/29/17 09:27 DC Ringer's Solution 1,000 ml @ 30 mls/hr Q24H 08/29/17 07:00 08/29/17 18:59 Cancel Sevoflurane (Ultane) 60 ml STK-MED ONCE 08/29/17 09:26 08/29/17 09:27 DC Sodium Bicarbonate (Sodium Bicarbonate) 325 mg BID 08/22/17 09:00 08/27/17 14:39 DC 08/26/17 21:55 325 MG Sodium Chloride 1,000 ml @ 30 mls/hr Q24H 08/29/17 10:00 Sodium Chloride (Normal Saline Flush) 10 ml 1X PRN PRN 08/29/17 07:45 08/30/17 07:44 Spironolactone (Aldactone) 25 mg DAILY 08/22/17 09:00 08/27/17 14:39 DC 08/26/17 08:42 25 MG Lab Laboratory Tests Test 08/28/17 16:15 08/28/17 16:51 08/28/17 21:39 08/29/17 07:31 25-Hydroxy Vitamin D Total 29.2 ng/mL (30-100) Glucose (Fingerstick) 147 mg/dL (70-99) 99 mg/dL (70-99) 103 mg/dL (70-99) Test 08/29/17 08:02 08/29/17 09:40 08/29/17 12:42 08/29/17 13:01 25-Hydroxy Vitamin D Total 32.3 ng/mL (30-100) Glucose (Fingerstick) 85 mg/dL (70-99) 116 mg/dL (70-99) 128 mg/dL (70-99) JOSE ALBERTO VELAZQUEZ MD Aug 29, 2017 14:45
[2017-08-29 15:00] VITALS: BP 142/62
--- NOTE | 2017-08-29 17:42 | PDOC ---
PROGRESS NOTES Subjective Pt seen in dialysis after getting dialysis catheter and dialysis shunt placed today without problems. She did not feel well with a systolic BP in the 110s as dialysis began but it is now 160 systolic and she feels fine now. She denies chest pain, nausea, SOA. 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 Vital Signs Vital Signs Date Time Temp Pulse Resp B/P (MAP) Pulse Ox O2 Delivery O2 Flow Rate FiO2 08/29/17 16:52 89 Nasal Cannula 3.0 08/29/17 15:00 98.3 67 20 142/62 (88) 98.3 I & O Intake and Output 08/29/17 07:00 Intake Total 1720 ml Output Total 200 ml Balance 1520 ml Intake Oral 1720 ml Output Urine Total 200 ml # Voids 2 # Bowel Movements 1 Assessment and Plan Problems Medical Problems: (1) Acute on chronic congestive heart failure Status: Acute (2) Acute on chronic respiratory failure Status: Acute (3) COPD (chronic obstructive pulmonary disease) Status: Acute (4) Elevated troponin Status: Acute (5) End stage renal disease Status: Acute (6) Severe protein-calorie malnutrition Status: Acute (7) Type 2 diabetes mellitus Status: Acute Assessment/plan 1. ESRD - continue dialysis, s/p placement of permanent dialysis catheter right chest and shunt left arm 2. HTN - monitoring 3. acute on chronic respiratory failure with COPD - stable, continue O2, on home dose of Breo in place of nebs per her preference. 4. DM2 - well controlled with small doses of SS insulin. 5. CHF with severe cardiomyopathy - presently compensated. 6. Anemia - Likely related to chronic renal disease Problems: Tristan PENG MD Aug 29, 2017 17:42
[2017-08-29 19:27] VITALS: BP 113/71
[2017-08-29 20:21] VITALS: BP 178/91
[2017-08-29] MEDS: ATORVASTATIN CALCIUM 10 MG TABLET. PO SCH (20:23)
[2017-08-29] MEDS: DARBEPOETIN ALFA 60 MCG/0.3 ML DISP.SYRIN. SQ SCH (20:32)
[2017-08-29 23:50] VITALS: BP 174/72
[2017-08-30 03:08] VITALS: BP 167/74
[2017-08-30] MEDS: LEVOTHYROXINE 150 MCG TABLET PO SCH (05:52)
[2017-08-30 06:51] LABS: BASO % 0 % (0-3); CALCIUM 7.9 mg/dL (8.5-10.1); CREATININE 2.5 mg/dL (0.6-1.0); EOS % 0 % (0-3); GFR 19.3; HEMATOCRIT 27.2 % (36.0-47.0); HEMOGLOBIN 8.3 g/dL (12.0-15.5); LYMPH # 0.7 x10^3/uL (1.0-4.8); LYMPH % 8 % (24-48); MEAN CORPUSCULAR HEMOGLOBIN 30 pg (25-35); MEAN CORPUSCULAR HGB CONC 31 g/dL (31-37); MEAN CORPUSCULAR VOLUME 98 fL (79-100); MONO % 6 % (0-9); NEUT % 86 % (31-73); PLATELET COUNT 149 x10^3/uL (140-400); RED BLOOD COUNT 2.78 x10^6/uL (3.50-5.40); RED CELL DISTRIBUTION WIDTH 15.2 % (11.5-14.5); WHITE BLOOD COUNT 9.5 x10^3/uL (4.0-11.0)
[2017-08-30 07:44] LABS: ANISOCYTOSIS SLIGHT; PLT ESTIMATE ADEQUATE (ADEQUATE); POLYCHROMASIA SLIGHT
[2017-08-30 07:45] VITALS: BP 149/66
[2017-08-30] MEDS: ALBUTEROL SULFATE 2.5 MG/3 ML NEBU. NEB SCH ×3 (08:00→15:18)
[2017-08-30] MEDS: INSULIN ASPART 300 UNITS/3 ML INSULN.PEN SQ SCH ×4 (08:00→12:38)
[2017-08-30] MEDS: LACTOBACILLUS RHAMNOSUS GG 1 CAPSULE. PO SCH (08:45)
[2017-08-30] MEDS: CITALOPRAM 20 MG TABLET. PO SCH (08:47)
[2017-08-30] MEDS: ASPIRIN CHEWABLE 81 MG TABLET. PO SCH (08:47)
[2017-08-30] MEDS: DOXYCYCLINE HYCLATE 100 MG TABLET PO SCH (08:47)
[2017-08-30] MEDS: CARVEDILOL 6.25 MG TABLET. PO SCH (08:47)
[2017-08-30] MEDS: ISOSORBIDE MONONITRATE ER 30 MG TAB.ER.24H PO SCH (08:48)
[2017-08-30] MEDS: LISINOPRIL 20 MG TABLET PO SCH (08:48)
[2017-08-30] MEDS: ERGOCALCIFEROL (VITAMIN D2) 50,000 UNIT CAPSULE. PO SCH (08:52)
--- NOTE | 2017-08-30 08:55 | PDOC ---
PROGRESS NOTES Subjective Pt seen and examined this morning. Last night she had episodes of oxygen desaturation and was placed on cpap. This was due to a faulty connection with the oxygen line. She has no complaints of shortness of air, headache, chest pain , or nausea. She has c/o L arm pain on the inside of the elbow due to catheter placement. She is pleasant and talkative this morning. Objective Afebrile General: [NAD, awake, grossly alert and oriented] Heart: [RRR] Lungs: [Bilaterally clear to auscultation from anterior] Abd: [BS present, soft, no pain on palpitation, obese] Ext: [catheter dressings are clean/dry/intact] Vital Signs Vital Signs Date Time Temp Pulse Resp B/P (MAP) Pulse Ox O2 Delivery O2 Flow Rate FiO2 08/30/17 07:48 Nasal Cannula 3.0 08/30/17 07:45 97.8 58 22 149/66 (93) 93 97.8 I & O Intake and Output 08/30/17 07:00 Intake Total 420 ml Balance 420 ml Intake Oral 420 ml # Voids 1 Assessment and Plan Problems Medical Problems: (1) Acute on chronic congestive heart failure Status: Acute (2) Acute on chronic respiratory failure Status: Acute (3) COPD (chronic obstructive pulmonary disease) Status: Acute (4) Elevated troponin Status: Acute (5) End stage renal disease Status: Acute (6) Severe protein-calorie malnutrition Status: Acute (7) Type 2 diabetes mellitus Status: Acute Plan 1. ESRD - continue dialysis, s/p placement of permanent dialysis catheter right chest and shunt left arm 2. HTN - monitoring 3. acute on chronic respiratory failure with COPD - stable, continue O2, on home dose of Breo in place of nebs per her preference. 4. DM2 - well controlled with small doses of SS insulin. 5. CHF with severe cardiomyopathy - presently compensated. 6. Anemia - Continued, likely related to chronic renal disease Anticipate d/c today with starting outpatient dialysis m/w/f. Problems: Tritsan PENG MD Aug 30, 2017 08:55
[2017-08-30] MEDS ORDERED: FAMOTIDINE 20 MG TABLET. PO SCH (09:00)
[2017-08-30] MEDS: IV NORMAL SALINE 1000ML BAG 1,000 ML IV SCH (09:59)
[2017-08-30] MEDS: HYDROcodone/APAP 5/325MG 1 TAB TABLET PO PRN (10:15)
[2017-08-30 10:27] VITALS: BP 149/67
--- NOTE | 2017-08-30 11:40 | PDOC ---
SUBJECTIVE ROS ESRD Doing and feeling better overall CVS: no Orthopnea, no CP RESP: no SOB, no PLATT GI: no Nausea, no Vomiting : no Dysuria, no Urgency OBJECTIVE Vital Signs Vital Signs Date Time Temp Pulse Resp B/P (MAP) Pulse Ox O2 Delivery O2 Flow Rate FiO2 08/30/17 11:15 98 Nasal Cannula 3.0 08/30/17 10:27 97.6 61 20 149/67 (94) 97.6 I & 0 Intake and Output 08/30/17 07:00 Intake Total 420 ml Balance 420 ml Intake Oral 420 ml # Voids 1 PHYSICAL EXAM Physical Exam GEN: Awake, Oriented x 3, In no distress EYES: Vision Unchanged, Conjunctiva Normal EN: No EN Drainage, Mucous Membranes moist NECK: no JVD, no JVP, Supple, no Thyromegaly CVS: S1S2, + Murmur, No Gallop, No Rub,+ Edema RESP: rare Rales, no Rhonchi,no Acc. Muscle Use GI: BS + ve, NO Bruit, Non Tender, Non Distended : no CVA tenderness, no Suprapubic Tenderness DIAGNOSIS/ASSESSMENT Assessment & Plan ESRD: Current fluid and E-lyte status does not necessitate emergent need for dialysis. Will re-evaluate for dialysis in the am and continue on MWF schedule. Nephrotic Syndrome - ct RAAS Blockade agents as long as possible ANEMIA; Aranesp as ordered, Transfuse with next HD as needed HTN: currently lowish - may need to D/c Imdur and hydralazine. Current BP meds as reviewed. See orders for changes. BONE & MINERAL: follow phos and alter binder regimen as needed Appreciate Vasc Surgery assistance with AV Access placment Discussed Plan of Care with pt at bedside Problems: COMMENT/RELEVANT DATA Meds Current Medications Medications (Trade) Dose Ordered Sig/Slick Start Time Stop Time Status Last Admin Dose Admin Acetaminophen (Tylenol) 500 mg PRN Q6HRS PRN 08/29/17 12:00 Acetaminophen/ Hydrocodone Bitart (Lortab 5/325) 1 tab PRN Q4HRS PRN 08/29/17 12:00 08/30/17 10:15 1 TAB Albumin Human 200 ml @ 200 mls/hr 1X PRN PRN 08/27/17 13:30 08/27/17 19:29 DC Albuterol Sulfate (Ventolin Neb Soln) 2.5 mg RTQID 08/22/17 09:00 08/30/17 11:04 2.5 MG Albuterol/ Ipratropium (Duoneb) 3 ml RTQID 08/22/17 08:00 08/22/17 09:06 DC 08/22/17 07:18 3 ML Aspirin (Children'S Aspirin) 81 mg DAILY 08/22/17 09:00 08/30/17 08:47 81 MG Atorvastatin Calcium (Lipitor) 10 mg QHS 08/22/17 21:00 08/29/17 20:23 10 MG Carvedilol (Coreg) 6.25 mg BIDWMEALS 08/22/17 09:00 08/30/17 08:47 6.25 MG Cefazolin Sodium 1 gm/Sodium Chloride 500 ml @ 500 mls/hr 1X PERIOP ONCE 08/29/17 06:00 08/29/17 06:59 DC 08/29/17 10:56 Cefazolin Sodium 2 gm/Sodium Chloride 50 ml @ 100 mls/hr 1X PREOP PRN 08/29/17 10:45 08/29/17 11:00 DC Cefazolin Sodium/ Dextrose 50 ml @ 100 mls/hr 1X PREOP PRN 08/28/17 06:00 08/28/17 18:00 UNV Cellulose 1 each STK-MED ONCE 08/29/17 11:31 08/29/17 11:32 DC Citalopram Hydrobromide (CeleXA) 20 mg DAILY 08/22/17 09:00 08/30/17 08:47 20 MG Clonidine HCl (Catapres) 0.1 mg 1X PRN PRN 08/27/17 13:30 08/27/17 14:39 DC Darbepoetin Darwin (Aranesp) 60 mcg We 08/22/17 21:00 08/29/17 20:32 60 MCG Dexamethasone Sodium Phosphate (Decadron) 20 mg STK-MED ONCE 08/29/17 09:26 08/29/17 09:27 DC Dextrose (Dextrose 50%-Water Syringe) 12.5 gm PRN Q15MIN PRN 08/22/17 08:45 Diphenhydramine HCl (Benadryl) 25 mg 1X PRN PRN 08/27/17 13:30 08/28/17 13:29 Cancel Doxycycline Hyclate (Vibra-Tab) 100 mg BID 08/26/17 14:00 08/30/17 08:47 100 MG Ephedrine Sulfate (ePHEDrine PF IN SALINE SYRINGE) 50 mg STK-MED ONCE 08/29/17 10:42 08/29/17 10:43 DC Ergocalciferol (Vitamin D2) 50,000 unit Th 08/22/17 10:00 08/30/17 08:52 50,000 UNIT Famotidine (Pepcid) 20 mg Q48H 08/30/17 09:00 08/30/17 08:46 20 MG Fentanyl Citrate (Fentanyl 2ml Vial) 100 mcg STK-MED ONCE 08/29/17 09:26 08/29/17 09:27 DC Furosemide (Lasix) 40 mg Q8HRS 08/22/17 14:00 08/26/17 12:54 DC 08/26/17 06:08 40 MG Heparin Sodium (Porcine) (Heparin Sodium) 10,000 unit STK-MED ONCE 08/29/17 10:56 08/29/17 11:22 DC 08/29/17 10:56 5,000 UNIT Heparin Sodium (Porcine) 5000 unit/Sodium Chloride 505 ml @ 505 mls/hr 1X PERIOP ONCE 08/29/17 06:00 08/29/17 06:59 DC 08/29/17 10:56 Hydralazine HCl (Apresoline) 25 mg TID 08/22/17 09:00 08/26/17 12:54 DC 08/26/17 08:42 25 MG Hydromorphone HCl (Dilaudid) 0.5 mg PRN Q10MIN PRN 08/29/17 07:00 08/30/17 06:59 DC Info (PHARMACY MONITORING -- do not chart) 1 each PRN DAILY PRN 08/29/17 07:45 UNV Insulin Aspart (NovoLOG) 0-5 UNITS TIDWMEALS 08/22/17 12:00 08/26/17 17:41 2 UNITS Isosorbide Mononitrate (Imdur) 30 mg DAILY 08/28/17 09:00 08/30/17 08:48 30 MG Labetalol HCl (Normodyne) 10 mg PRN Q1HR PRN 08/29/17 07:45 08/30/17 07:44 DC Lactobacillus Rhamnosus (Culturelle) 1 cap BID 08/28/17 21:00 08/30/17 08:45 1 CAP Levothyroxine Sodium (Synthroid) 150 mcg DAILY07 08/22/17 10:30 08/30/17 05:52 150 MCG Lidocaine HCl (Lidocaine Pf 2% Vial) 5 ml STK-MED ONCE 08/29/17 09:26 08/29/17 09:27 DC Lidocaine HCl (Xylocaine-Mpf 1% Vial) 2 ml PRN 1X PRN 08/29/17 07:00 08/30/17 06:59 DC Lidocaine/Sodium Bicarbonate (Buffered Lidocaine 1%) 20 ml 1X ONCE 08/27/17 14:00 08/27/17 14:01 DC 08/27/17 14:05 20 ML Lisinopril (Prinivil) 20 mg DAILY 08/27/17 09:00 08/30/17 08:48 20 MG Midazolam HCl (Versed) 2 mg STK-MED ONCE 08/29/17 09:26 08/29/17 09:27 DC Midodrine (Proamatine) 5 mg 1X ONCE 08/27/17 13:30 08/27/17 14:39 DC Morphine Sulfate 1 mg PRN Q10MIN PRN 08/29/17 07:00 08/30/17 06:59 DC Nicardipine HCl 50 mg/Sodium Chloride 270 ml @ 25 mls/hr CONT PRN 08/21/17 20:30 08/24/17 13:02 DC 08/21/17 22:12 25 MLS/HR Ondansetron HCl (Zofran) 4 mg STK-MED ONCE 08/29/17 09:26 08/29/17 09:27 DC Prasugrel (Effient) 10 mg DAILY 08/22/17 09:00 08/27/17 15:55 DC 08/26/17 11:13 10 MG Prochlorperazine Edisylate (Compazine) 5 mg PACU PRN PRN 08/29/17 07:00 08/30/17 06:59 DC Propofol 20 ml @ As Directed STK-MED ONCE 08/29/17 09:26 08/29/17 09:27 DC Ringer's Solution 1,000 ml @ 30 mls/hr Q24H 08/29/17 07:00 08/29/17 18:59 Cancel Sevoflurane (Ultane) 60 ml STK-MED ONCE 08/29/17 09:26 08/29/17 09:27 DC Sodium Bicarbonate (Sodium Bicarbonate) 325 mg BID 08/22/17 09:00 08/27/17 14:39 DC 08/26/17 21:55 325 MG Sodium Chloride 1,000 ml @ 30 mls/hr Q24H 08/29/17 10:00 Sodium Chloride (Normal Saline Flush) 10 ml 1X PRN PRN 08/29/17 07:45 08/30/17 07:44 DC Spironolactone (Aldactone) 25 mg DAILY 08/22/17 09:00 08/27/17 14:39 DC 08/26/17 08:42 25 MG Lab Laboratory Tests Test 08/29/17 12:42 08/29/17 13:01 08/29/17 20:20 08/30/17 06:15 Glucose (Fingerstick) 116 mg/dL (70-99) 128 mg/dL (70-99) 152 mg/dL (70-99) White Blood Count 9.5 x10^3/uL (4.0-11.0) Red Blood Count 2.78 x10^6/uL (3.50-5.40) Hemoglobin 8.3 g/dL (12.0-15.5) Hematocrit 27.2 % (36.0-47.0) Mean Corpuscular Volume 98 fL (79-100) Mean Corpuscular Hemoglobin 30 pg (25-35) Mean Corpuscular Hemoglobin Concent 31 g/dL (31-37) Red Cell Distribution Width 15.2 % (11.5-14.5) Platelet Count 149 x10^3/uL (140-400) Neutrophils (%) (Auto) 86 % (31-73) Lymphocytes (%) (Auto) 8 % (24-48) Monocytes (%) (Auto) 6 % (0-9) Eosinophils (%) (Auto) 0 % (0-3) Basophils (%) (Auto) 0 % (0-3) Neutrophils # (Auto) 8.1 x10^3uL (1.8-7.7) Lymphocytes # (Auto) 0.7 x10^3/uL (1.0-4.8) Monocytes # (Auto) 0.6 x10^3/uL (0.0-1.1) Eosinophils # (Auto) 0.0 x10^3/uL (0.0-0.7) Basophils # (Auto) 0.0 x10^3/uL (0.0-0.2) Segmented Neutrophils % 83 % (35-66) Band Neutrophils % 4 % (0-9) Lymphocytes % 11 % (24-48) Monocytes % 2 % (0-10) Platelet Estimate Adequate (ADEQUATE) Polychromasia Slight Anisocytosis Slight Sodium Level 135 mmol/L (136-145) Potassium Level 4.0 mmol/L (3.5-5.1) Chloride Level 104 mmol/L (98-107) Carbon Dioxide Level 23 mmol/L (21-32) Anion Gap 8 (6-14) Blood Urea Nitrogen 24 mg/dL (7-20) Creatinine 2.5 mg/dL (0.6-1.0) Estimated GFR (Cockcroft-Gault) 19.3 Glucose Level 155 mg/dL (70-99) Calcium Level 7.9 mg/dL (8.5-10.1) Test 08/30/17 08:00 Glucose (Fingerstick) 133 mg/dL (70-99) JOSE ALBERTO VELAZQUEZ MD Aug 30, 2017 11:40
[2017-08-30] MEDS ORDERED: FAMO20TA5 PO (12:08)
[2017-08-30] MEDS ORDERED: DOXY100T PO (12:08)
[2017-08-30] MEDS ORDERED: LACT1CAP19 PO (12:08)
[2017-08-30] MEDS ORDERED: BREO ELLIPTA 21 EACH IH (12:08)
[2017-08-30] MEDS ORDERED: LISI-334 PO (12:08)
--- NOTE | 2017-08-30 12:14 | PDOC ---
CARDIOLOGY PROGRESS NOTE SUBJECTIVE: Denies any issues this a.m. Eager to go home. OBJECTIVE: Vital SIgns: Vital Signs Date Time Temp Pulse Resp B/P (MAP) Pulse Ox O2 Delivery O2 Flow Rate FiO2 08/30/17 11:15 98 Nasal Cannula 3.0 08/30/17 10:27 97.6 61 20 149/67 (94) 97.6 I & O Intake and Output 08/30/17 07:00 Intake Total 420 ml Balance 420 ml Intake Oral 420 ml # Voids 1 Objective: Gen: A/O x 3. More awake than previously. CVS: RRR PULM: CTAB Mild RLE edema. CURRENT MEDICATIONS: Current Medications Medications (Trade) Dose Ordered Sig/Slick Start Time Stop Time Status Last Admin Dose Admin Acetaminophen (Tylenol) 500 mg PRN Q6HRS PRN 08/29/17 12:00 Acetaminophen/ Hydrocodone Bitart (Lortab 5/325) 1 tab PRN Q4HRS PRN 08/29/17 12:00 08/30/17 10:15 1 TAB Albumin Human 200 ml @ 200 mls/hr 1X PRN PRN 08/27/17 13:30 08/27/17 19:29 DC Albuterol Sulfate (Ventolin Neb Soln) 2.5 mg RTQID 08/22/17 09:00 08/30/17 11:04 2.5 MG Albuterol/ Ipratropium (Duoneb) 3 ml RTQID 08/22/17 08:00 08/22/17 09:06 DC 08/22/17 07:18 3 ML Aspirin (Children'S Aspirin) 81 mg DAILY 08/22/17 09:00 08/30/17 08:47 81 MG Atorvastatin Calcium (Lipitor) 10 mg QHS 08/22/17 21:00 08/29/17 20:23 10 MG Carvedilol (Coreg) 6.25 mg BIDWMEALS 08/22/17 09:00 08/30/17 08:47 6.25 MG Cefazolin Sodium 1 gm/Sodium Chloride 500 ml @ 500 mls/hr 1X PERIOP ONCE 08/29/17 06:00 08/29/17 06:59 DC 08/29/17 10:56 Cefazolin Sodium 2 gm/Sodium Chloride 50 ml @ 100 mls/hr 1X PREOP PRN 08/29/17 10:45 08/29/17 11:00 DC Cefazolin Sodium/ Dextrose 50 ml @ 100 mls/hr 1X PREOP PRN 08/28/17 06:00 08/28/17 18:00 UNV Cellulose 1 each STK-MED ONCE 08/29/17 11:31 08/29/17 11:32 DC Citalopram Hydrobromide (CeleXA) 20 mg DAILY 08/22/17 09:00 08/30/17 08:47 20 MG Clonidine HCl (Catapres) 0.1 mg 1X PRN PRN 08/27/17 13:30 08/27/17 14:39 DC Darbepoetin Darwin (Aranesp) 60 mcg We 08/22/17 21:00 08/29/17 20:32 60 MCG Dexamethasone Sodium Phosphate (Decadron) 20 mg STK-MED ONCE 08/29/17 09:26 08/29/17 09:27 DC Dextrose (Dextrose 50%-Water Syringe) 12.5 gm PRN Q15MIN PRN 08/22/17 08:45 Diphenhydramine HCl (Benadryl) 25 mg 1X PRN PRN 08/27/17 13:30 08/28/17 13:29 Cancel Doxycycline Hyclate (Vibra-Tab) 100 mg BID 08/26/17 14:00 08/30/17 08:47 100 MG Ephedrine Sulfate (ePHEDrine PF IN SALINE SYRINGE) 50 mg STK-MED ONCE 08/29/17 10:42 08/29/17 10:43 DC Ergocalciferol (Vitamin D2) 50,000 unit Th 08/22/17 10:00 08/30/17 08:52 50,000 UNIT Famotidine (Pepcid) 20 mg Q48H 08/30/17 09:00 08/30/17 08:46 20 MG Fentanyl Citrate (Fentanyl 2ml Vial) 100 mcg STK-MED ONCE 08/29/17 09:26 08/29/17 09:27 DC Furosemide (Lasix) 40 mg Q8HRS 08/22/17 14:00 08/26/17 12:54 DC 08/26/17 06:08 40 MG Heparin Sodium (Porcine) (Heparin Sodium) 10,000 unit STK-MED ONCE 08/29/17 10:56 08/29/17 11:22 DC 08/29/17 10:56 5,000 UNIT Heparin Sodium (Porcine) 5000 unit/Sodium Chloride 505 ml @ 505 mls/hr 1X PERIOP ONCE 08/29/17 06:00 08/29/17 06:59 DC 08/29/17 10:56 Hydralazine HCl (Apresoline) 25 mg TID 08/22/17 09:00 08/26/17 12:54 DC 08/26/17 08:42 25 MG Hydromorphone HCl (Dilaudid) 0.5 mg PRN Q10MIN PRN 08/29/17 07:00 08/30/17 06:59 DC Info (PHARMACY MONITORING -- do not chart) 1 each PRN DAILY PRN 08/29/17 07:45 UNV Insulin Aspart (NovoLOG) 0-5 UNITS TIDWMEALS 08/22/17 12:00 08/26/17 17:41 2 UNITS Isosorbide Mononitrate (Imdur) 30 mg DAILY 08/28/17 09:00 08/30/17 08:48 30 MG Labetalol HCl (Normodyne) 10 mg PRN Q1HR PRN 08/29/17 07:45 08/30/17 07:44 DC Lactobacillus Rhamnosus (Culturelle) 1 cap BID 08/28/17 21:00 08/30/17 08:45 1 CAP Levothyroxine Sodium (Synthroid) 150 mcg DAILY07 08/22/17 10:30 08/30/17 05:52 150 MCG Lidocaine HCl (Lidocaine Pf 2% Vial) 5 ml STK-MED ONCE 08/29/17 09:26 08/29/17 09:27 DC Lidocaine HCl (Xylocaine-Mpf 1% Vial) 2 ml PRN 1X PRN 08/29/17 07:00 08/30/17 06:59 DC Lidocaine/Sodium Bicarbonate (Buffered Lidocaine 1%) 20 ml 1X ONCE 08/27/17 14:00 08/27/17 14:01 DC 08/27/17 14:05 20 ML Lisinopril (Prinivil) 20 mg DAILY 08/27/17 09:00 08/30/17 08:48 20 MG Midazolam HCl (Versed) 2 mg STK-MED ONCE 08/29/17 09:26 08/29/17 09:27 DC Midodrine (Proamatine) 5 mg 1X ONCE 08/27/17 13:30 08/27/17 14:39 DC Morphine Sulfate 1 mg PRN Q10MIN PRN 08/29/17 07:00 08/30/17 06:59 DC Nicardipine HCl 50 mg/Sodium Chloride 270 ml @ 25 mls/hr CONT PRN 08/21/17 20:30 08/24/17 13:02 DC 08/21/17 22:12 25 MLS/HR Ondansetron HCl (Zofran) 4 mg STK-MED ONCE 08/29/17 09:26 08/29/17 09:27 DC Prasugrel (Effient) 10 mg DAILY 08/22/17 09:00 08/27/17 15:55 DC 08/26/17 11:13 10 MG Prochlorperazine Edisylate (Compazine) 5 mg PACU PRN PRN 08/29/17 07:00 08/30/17 06:59 DC Propofol 20 ml @ As Directed STK-MED ONCE 08/29/17 09:26 08/29/17 09:27 DC Ringer's Solution 1,000 ml @ 30 mls/hr Q24H 08/29/17 07:00 08/29/17 18:59 Cancel Sevoflurane (Ultane) 60 ml STK-MED ONCE 08/29/17 09:26 08/29/17 09:27 DC Sodium Bicarbonate (Sodium Bicarbonate) 325 mg BID 08/22/17 09:00 08/27/17 14:39 DC 08/26/17 21:55 325 MG Sodium Chloride 1,000 ml @ 30 mls/hr Q24H 08/29/17 10:00 Sodium Chloride (Normal Saline Flush) 10 ml 1X PRN PRN 08/29/17 07:45 08/30/17 07:44 DC Spironolactone (Aldactone) 25 mg DAILY 08/22/17 09:00 08/27/17 14:39 DC 08/26/17 08:42 25 MG ASSESSMENT: 1. Ischemic CMP 2. ESRD Problems: PLAN: 1. Home on Coreg 6.25mg bid, Lisinopril 20mg daily and Atorvastatin. Stop imdur. Will f/u in the office. Thanks. Discussed with LAURA Rosales MD Aug 30, 2017 12:14
--- NOTE | 2017-08-30 13:32 | PDOC ---
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 Replacement of temporary dialysis catheter with a PermCath using cutdown and fluoroscopy. 2. Placement of a left antecubital arteriovenous fistula into the cephalic vein. Continue ASA Elevate arm as needed, start hand/ball exercises when comfortable Doing well, may d/c home when medically stable F/U in [address] Colon [phone] ANIL MCGUIRE APRN Aug 30, 2017 13:32
--- NOTE | 2017-08-30 14:38 | PDOC ---
PULMONARY PROGRESS NOTES Subjective NO RESP COMPLAINTS Vitals Vital Signs Date Time Temp Pulse Resp B/P (MAP) Pulse Ox O2 Delivery O2 Flow Rate FiO2 08/30/17 11:15 98 Nasal Cannula 3.0 08/30/17 10:27 97.6 61 20 149/67 (94) 97.6 General: Alert HEENT: Other Lungs: Clear Cardiovascular: S1, S2 Abdomen: Soft, Non-tender, Other (OBESE) Neuro Exam: Alert Extremities: Other (EDEMA) Skin: Warm Labs Laboratory Tests Test 08/28/17 16:15 08/28/17 16:51 08/28/17 21:39 08/29/17 07:31 25-Hydroxy Vitamin D Total 29.2 ng/mL (30-100) Glucose (Fingerstick) 147 mg/dL (70-99) 99 mg/dL (70-99) 103 mg/dL (70-99) Test 08/29/17 08:02 08/29/17 09:40 08/29/17 12:42 08/29/17 13:01 25-Hydroxy Vitamin D Total 32.3 ng/mL (30-100) Glucose (Fingerstick) 85 mg/dL (70-99) 116 mg/dL (70-99) 128 mg/dL (70-99) Test 08/29/17 20:20 08/30/17 06:15 08/30/17 08:00 08/30/17 11:23 Glucose (Fingerstick) 152 mg/dL (70-99) 133 mg/dL (70-99) 174 mg/dL (70-99) White Blood Count 9.5 x10^3/uL (4.0-11.0) Red Blood Count 2.78 x10^6/uL (3.50-5.40) Hemoglobin 8.3 g/dL (12.0-15.5) Hematocrit 27.2 % (36.0-47.0) Mean Corpuscular Volume 98 fL (79-100) Mean Corpuscular Hemoglobin 30 pg (25-35) Mean Corpuscular Hemoglobin Concent 31 g/dL (31-37) Red Cell Distribution Width 15.2 % (11.5-14.5) Platelet Count 149 x10^3/uL (140-400) Neutrophils (%) (Auto) 86 % (31-73) Lymphocytes (%) (Auto) 8 % (24-48) Monocytes (%) (Auto) 6 % (0-9) Eosinophils (%) (Auto) 0 % (0-3) Basophils (%) (Auto) 0 % (0-3) Neutrophils # (Auto) 8.1 x10^3uL (1.8-7.7) Lymphocytes # (Auto) 0.7 x10^3/uL (1.0-4.8) Monocytes # (Auto) 0.6 x10^3/uL (0.0-1.1) Eosinophils # (Auto) 0.0 x10^3/uL (0.0-0.7) Basophils # (Auto) 0.0 x10^3/uL (0.0-0.2) Segmented Neutrophils % 83 % (35-66) Band Neutrophils % 4 % (0-9) Lymphocytes % 11 % (24-48) Monocytes % 2 % (0-10) Platelet Estimate Adequate (ADEQUATE) Polychromasia Slight Anisocytosis Slight Sodium Level 135 mmol/L (136-145) Potassium Level 4.0 mmol/L (3.5-5.1) Chloride Level 104 mmol/L (98-107) Carbon Dioxide Level 23 mmol/L (21-32) Anion Gap 8 (6-14) Blood Urea Nitrogen 24 mg/dL (7-20) Creatinine 2.5 mg/dL (0.6-1.0) Estimated GFR (Cockcroft-Gault) 19.3 Glucose Level 155 mg/dL (70-99) Calcium Level 7.9 mg/dL (8.5-10.1) Laboratory Tests Test 08/29/17 20:20 08/30/17 06:15 08/30/17 08:00 08/30/17 11:23 Glucose (Fingerstick) 152 mg/dL (70-99) 133 mg/dL (70-99) 174 mg/dL (70-99) White Blood Count 9.5 x10^3/uL (4.0-11.0) Red Blood Count 2.78 x10^6/uL (3.50-5.40) Hemoglobin 8.3 g/dL (12.0-15.5) Hematocrit 27.2 % (36.0-47.0) Mean Corpuscular Volume 98 fL (79-100) Mean Corpuscular Hemoglobin 30 pg (25-35) Mean Corpuscular Hemoglobin Concent 31 g/dL (31-37) Red Cell Distribution Width 15.2 % (11.5-14.5) Platelet Count 149 x10^3/uL (140-400) Neutrophils (%) (Auto) 86 % (31-73) Lymphocytes (%) (Auto) 8 % (24-48) Monocytes (%) (Auto) 6 % (0-9) Eosinophils (%) (Auto) 0 % (0-3) Basophils (%) (Auto) 0 % (0-3) Neutrophils # (Auto) 8.1 x10^3uL (1.8-7.7) Lymphocytes # (Auto) 0.7 x10^3/uL (1.0-4.8) Monocytes # (Auto) 0.6 x10^3/uL (0.0-1.1) Eosinophils # (Auto) 0.0 x10^3/uL (0.0-0.7) Basophils # (Auto) 0.0 x10^3/uL (0.0-0.2) Segmented Neutrophils % 83 % (35-66) Band Neutrophils % 4 % (0-9) Lymphocytes % 11 % (24-48) Monocytes % 2 % (0-10) Platelet Estimate Adequate (ADEQUATE) Polychromasia Slight Anisocytosis Slight Sodium Level 135 mmol/L (136-145) Potassium Level 4.0 mmol/L (3.5-5.1) Chloride Level 104 mmol/L (98-107) Carbon Dioxide Level 23 mmol/L (21-32) Anion Gap 8 (6-14) Blood Urea Nitrogen 24 mg/dL (7-20) Creatinine 2.5 mg/dL (0.6-1.0) Estimated GFR (Cockcroft-Gault) 19.3 Glucose Level 155 mg/dL (70-99) Calcium Level 7.9 mg/dL (8.5-10.1) Medications Active Scripts Medications Dose Route/Sig Max Daily Dose Days Date Category Levothyroxine Sodium 150 Mcg Tablet 150 Mcg PO DAILYAC 08/21/17 Reported Lantus Solostar (Insulin Glargine,Hum.rec.anlog) 100 Unit/1 Ml Insuln.pen 3 Unit SQ HS 11/28/17 Reported Famotidine 20 Mg Tablet 20 Mg PO BID 08/21/17 Reported Effient (Prasugrel Hcl) 10 Mg Tablet 10 Mg PO DAILY 08/21/17 Reported Lisinopril 40 Mg Tablet 40 Mg PO BID 08/21/17 Reported Furosemide 40 Mg Tablet 40 Mg PO DAILY 30 05/20/17 Rx Sodium Bicarbonate 325 Mg Tablet 10 Gr PO BID 12/28/16 Reported Aspirin 81 Mg Tab.chew 1 Tab PO DAILY 12/28/16 Reported Aldactone (Spironolactone) 25 Mg Tablet 25 Mg PO DAILY 09/05/16 Rx Isosorbide Mononitrate Er (Isosorbide Mononitrate) 30 Mg Tab.er.24h 60 Mg PO DAILY 09/05/16 Rx Hydralazine Hcl 25 Mg Tablet 25 Mg PO TID 09/05/16 Rx Carvedilol 6.25 Mg Tablet 6.25 Mg PO BIDWMEALS 09/05/16 Rx Atorvastatin Calcium 10 Mg Tablet 10 Mg PO QHS 09/05/16 Rx Albuterol Sulfate Neb Soln (Albuterol Sulfate) 2.5 Mg/3 Ml Vial.neb 2.5 Mg NEB RTQID 08/26/15 Rx Novolog Flexpen (Insulin Aspart) 100 Unit/1 Ml Insuln.pen 5 Unit SQ TIDWMEALS 08/21/15 Reported Celexa (Citalopram Hydrobromide) 20 Mg Tablet 20 Mg PO DAILY 05/20/14 Reported Vitamin D2 (Ergocalciferol (Vitamin D2)) 50,000 Unit Capsule 50,000 Unit PO WEEKLY 05/20/14 Reported Impression . 1. Acute on chronic systolic heart failure presenting as increasing dyspnea and right lower extremity edema along with interstitial infiltrates on the chest x- ray. 2. Underlying severe cardiomyopathy with an EF of 25%. 3. Acute on chronic renal failure. 4. Underlying chronic obstructive pulmonary disease. Smoked for 45-50 years, unknown FEV1. 5. Acute/Chronic hypoxic respiratory failure, on home oxygen 2-3 liters 6. POSSIBLE KOFF[facility] Plan . OUTPT SLEEP STUDY FOLLOW UP IN MY OFFICE NO NEED FOR ANITBX BRY HERNANDEZ MD Aug 30, 2017 14:38
[2017-08-30 15:00] VITALS: BP 104/51
== END 2017-08-30 18:40 | disposition home health service (06) | DRG 264 ==
LOC: ER 19:53 → 2 NORTH 21:12
PROVIDERS: ADMIT Family Medicine; ATTEND Family Medicine
PROC: 5A09357 Assistance with Respiratory Ventilation, Less than 24 Consecutive Hours, Continuous Positive Airway Pressure (ICD-10-PCS; 2017-08-21)
PROC: 5A09357 Assistance with Respiratory Ventilation, Less than 24 Consecutive Hours, Continuous Positive Airway Pressure (ICD-10-PCS; 2017-08-22)
PROC: 5A09357 Assistance with Respiratory Ventilation, Less than 24 Consecutive Hours, Continuous Positive Airway Pressure (ICD-10-PCS; 2017-08-23)
PROC: 5A09357 Assistance with Respiratory Ventilation, Less than 24 Consecutive Hours, Continuous Positive Airway Pressure (ICD-10-PCS; 2017-08-26)
PROC: 5A1D70Z Performance of Urinary Filtration, Intermittent, Less than 6 Hours Per Day (ICD-10-PCS; 2017-08-27)
PROC: 5A09357 Assistance with Respiratory Ventilation, Less than 24 Consecutive Hours, Continuous Positive Airway Pressure (ICD-10-PCS; 2017-08-27)
PROC: 02H633Z Insertion of Infusion Device into Right Atrium, Percutaneous Approach (ICD-10-PCS; 2017-08-27)
PROC: B2141ZZ Fluoroscopy of Right Heart using Low Osmolar Contrast (ICD-10-PCS; 2017-08-27)
PROC: B244ZZZ Ultrasonography of Right Heart (ICD-10-PCS; 2017-08-27)
PROC: 5A09357 Assistance with Respiratory Ventilation, Less than 24 Consecutive Hours, Continuous Positive Airway Pressure (ICD-10-PCS; 2017-08-28)
PROC: 02PYX3Z Removal of Infusion Device from Great Vessel, External Approach (ICD-10-PCS; 2017-08-29)
PROC: 5A09357 Assistance with Respiratory Ventilation, Less than 24 Consecutive Hours, Continuous Positive Airway Pressure (ICD-10-PCS; 2017-08-29)
PROC: 03180ZD Bypass Left Brachial Artery to Upper Arm Vein, Open Approach (ICD-10-PCS; principal; 2017-08-29 10:00)
DX: I13.2 Hypertensive heart and chronic kidney disease with heart failure and with stage 5 chronic kidney disease, or end stage renal disease (principal); J96.21 Acute and chronic respiratory failure with hypoxia; E43 Unspecified severe protein-calorie malnutrition; N17.9 Acute kidney failure, unspecified; I27.20 Pulmonary hypertension, unspecified; E11.22 Type 2 diabetes mellitus with diabetic chronic kidney disease; N18.6 End stage renal disease; I50.43 Acute on chronic combined systolic (congestive) and diastolic (congestive) heart failure; Z68.41 Body mass index [BMI] 40.0-44.9, adult; E11.51 Type 2 diabetes mellitus with diabetic peripheral angiopathy without gangrene; D63.1 Anemia in chronic kidney disease; E03.9 Hypothyroidism, unspecified; E11.649 Type 2 diabetes mellitus with hypoglycemia without coma; E78.5 Hyperlipidemia, unspecified; E61.1 Iron deficiency; F17.210 Nicotine dependence, cigarettes, uncomplicated; I25.10 Atherosclerotic heart disease of native coronary artery without angina pectoris; I25.5 Ischemic cardiomyopathy; J44.9 Chronic obstructive pulmonary disease, unspecified; K21.9 Gastro-esophageal reflux disease without esophagitis; F32.9 Major depressive disorder, single episode, unspecified; Z79.4 Long term (current) use of insulin; Z79.899 Other long term (current) drug therapy; Z82.49 Family history of ischemic heart disease and other diseases of the circulatory system; Z82.5 Family history of asthma and other chronic lower respiratory diseases; Z83.3 Family history of diabetes mellitus; Z89.512 Acquired absence of left leg below knee; Z89.612 Acquired absence of left leg above knee; Z91.19 Patient's noncompliance with other medical treatment and regimen; Z95.810 Presence of automatic (implantable) cardiac defibrillator; Z99.2 Dependence on renal dialysis; Z99.81 Dependence on supplemental oxygen
CPT/HCPCS: 36415; 36556; 36600; 71010; 76937; 77001; 80048; 80053; 80074; 82306; 82553; 82575; 82805; 82962; 83540; 83550; 83735; 83880; 84156; 84484; 85007; 85025; 85027; 85610; 86704; 86706; 93005; 93970; 94250; 94640; 94660; 94760; 96365; C1769; C1892; J0690; J0881; J1100; J1644; J1815; J1940; J2250; J2270; J2405; J2704; J3010; J7040; J7050; J7613; J7620; 99291-25; J2001; J7030

== ENCOUNTER 2017-09-07 17:18 | Inpatient (IN) | payer BC, MEDICAID ==
[~2017-09-07] VITALS: Ht 157.5 cm; Wt 112.9 kg
[~2017-09-07 17:18] MED LIST changes: +BREO ELLIPTA 21 EACH IH; +DOXY100T PO; +LACT1CAP19 PO; +LEVO150T5 PO; +LISI-334 PO
--- NOTE | 2017-09-07 17:54 | PHYS DOC ---
Past Medical History Past Medical History: CAD, CHF, COPD, Diabetes-Type II, Hypertension, [place], Renal Failure, Other Additional Past Medical Histor: KIDNEY ISSUES Past Surgical History: Cholecystectomy, , Pacemaker, Other Additional Past Surgical Histo: L BKA, R toe amp., fempop bypass bx legs; defib., R chest cath, L fistula Alcohol Use: None Drug Use: None Adult General Chief Complaint Chief Complaint: SHORTNESS OF BREATH HPI HPI Patient is a 67 year old F who presents with chest pain that started prior dialysis. Patient was sitting with bowel center getting ready to dialyze when she developed centralized chest pain nonradiating. Patient had a previous heart attack with bypass and stent placement. 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 The dialysis center called EMS which transported to the emergency room. She was given 2 nitroglycerin that brought her chest pain down to 4 out of 10. Patient had no previous history of blood clots. Patient states nothing increases or decreases the pain. Patient denies any shortness of breath. Patient has no other complaints. Patient denies any fevers. Review of Systems Review of Systems GEN: Denies fevers, chills, sweats HEENT: Denies blurred vision, sore throat CV: Chest pain RESP: Denies shortness of air, cough GI: Denies n/v/d NEURO: Denies confusion, dizziness MSK: Denies weakness, joint pain/swelling All other systems were reviewed and found to be within normal limits, except as documented in this note. Current Medications Current Medications Current Medications Medications (Trade) Dose Ordered Sig/Slick Start Time Stop Time Status Last Admin Dose Admin Aspirin (Children'S Aspirin) 324 mg 1X ONCE 09/07/17 18:00 09/07/17 18:01 DC Fentanyl Citrate (Fentanyl 2ml Vial) 50 mcg PRN Q1HR PRN 09/07/17 21:00 09/08/17 20:59 UNV Info (Do NOT chart on this entry -- for MONITORING) 1 each PRN DAILY PRN 09/07/17 21:00 09/09/17 20:59 Iohexol (Omnipaque 300 Mg/ml) 75 ml 1X ONCE 09/07/17 21:00 09/07/17 21:01 Nitroglycerin (Nitrostat) 0.4 mg PRN Q5MIN PRN 09/07/17 21:00 09/08/17 20:59 UNV Ondansetron HCl (Zofran) 4 mg PRN Q8HRS PRN 09/07/17 21:00 09/08/17 20:59 UNV Allergies Allergies Allergies Coded Allergies Type Severity Reaction Last Updated Verified No Known Drug Allergies 09/07/17 No Physical Exam Physical Exam GEN.: Mild distress. Alert and oriented. HEENT: Head is normocephalic, atraumatic NECK: Supple. LUNGS: CTAB. HEART: Tachycardia, S1, S2 present. Peripheral pulses intact ABDOMEN: Soft, nontender. Positive bowel sounds. EXTREMITIES: Without any cyanosis, +2 pitting edema to the right lower extremity, BKA to the left lower extremity NEUROLOGIC: Normal speech, normal tone PSYCHIATRIC: Normal affect, normal mood. SKIN: No ulcerations Current Patient Data Vital Signs Vital Signs Date Time Temp Pulse Resp B/P (MAP) Pulse Ox O2 Delivery O2 Flow Rate FiO2 09/07/17 19:40 88 17 143/66 (91) 97 Nasal Cannula 2.0 09/07/17 17:18 99.6 99.6 Lab Values Laboratory Tests Test 09/07/17 18:40 White Blood Count 10.3 x10^3/uL (4.0-11.0) Red Blood Count 3.06 x10^6/uL (3.50-5.40) L Hemoglobin 9.2 g/dL (12.0-15.5) L Hematocrit 29.3 % (36.0-47.0) L Mean Corpuscular Volume 96 fL (79-100) Mean Corpuscular Hemoglobin 30 pg (25-35) Mean Corpuscular Hemoglobin Concent 31 g/dL (31-37) Red Cell Distribution Width 15.7 % (11.5-14.5) H Platelet Count 133 x10^3/uL (140-400) L Neutrophils (%) (Auto) 88 % (31-73) H Lymphocytes (%) (Auto) 4 % (24-48) L Monocytes (%) (Auto) 7 % (0-9) Eosinophils (%) (Auto) 1 % (0-3) Basophils (%) (Auto) 1 % (0-3) Neutrophils # (Auto) 9.0 x10^3uL (1.8-7.7) H Lymphocytes # (Auto) 0.4 x10^3/uL (1.0-4.8) L Monocytes # (Auto) 0.7 x10^3/uL (0.0-1.1) Eosinophils # (Auto) 0.1 x10^3/uL (0.0-0.7) Basophils # (Auto) 0.1 x10^3/uL (0.0-0.2) Segmented Neutrophils % 84 % (35-66) H Band Neutrophils % 1 % (0-9) Lymphocytes % 7 % (24-48) L Monocytes % 6 % (0-10) Eosinophils % 2 % (0-5) Platelet Estimate Decreased (ADEQUATE) Poikilocytosis Slight Anisocytosis Slight Sodium Level 139 mmol/L (136-145) Potassium Level 4.0 mmol/L (3.5-5.1) Chloride Level 104 mmol/L (98-107) Carbon Dioxide Level 23 mmol/L (21-32) Anion Gap 12 (6-14) Blood Urea Nitrogen 20 mg/dL (7-20) Creatinine 2.6 mg/dL (0.6-1.0) H Estimated GFR (Cockcroft-Gault) 18.5 BUN/Creatinine Ratio 8 (6-20) Glucose Level 77 mg/dL (70-99) Calcium Level 7.7 mg/dL (8.5-10.1) L Total Bilirubin 0.4 mg/dL (0.2-1.0) Aspartate Amino Transferase (AST) 23 U/L (15-37) Alanine Aminotransferase (ALT) 14 U/L (14-59) Alkaline Phosphatase 87 U/L (46-116) Troponin I Quantitative 0.039 ng/mL (0.000-0.055) Total Protein 6.2 g/dL (6.4-8.2) L Albumin 2.7 g/dL (3.4-5.0) L Albumin/Globulin Ratio 0.8 (1.0-1.7) L Laboratory Tests 09/07/17 18:40 Laboratory Tests 09/07/17 18:40 EKG EKG 1733: EKG shows sinus tach rate of 108 no STEMI[] Radiology/Procedures Radiology/Procedures Chest x-ray bilateral palmar edema CTA of the chest pending[] Course & Med Decision Making Course & Med Decision Making Pertinent Labs and Imaging studies reviewed. (See chart for details) ED course: Patient was seen and examined emergent cardiac workup was ordered along with a CTA chest Radiology states they need nephrology to agreed to dialyze the patient for next 24 hours in order to do the CTA chest Updated patient on work and x-ray findings and plan to admit and obtain a CT scan of the chest 2042: Discussed CC/HP/PMH with Dr. Mandujano and recommends admit 2047: Discussed CC/HP/PMH with Dr. Helms and will dialyze the patient within next 24 hours and see the patient in consult MDM: After reviewing the chart, CC/HPI/PMH, physical exam, [lab results], [ radiological results], I do not believe the patient having a STEMI however given the patient's significant cardiac risk factors we'll with the patient for further evaluation and management. We'll obtain a CT angio the chest to rule out a PE since the patient presented with tachycardia and has swelling to her right lower extremity. [] Dragon Disclaimer Dragon Disclaimer This electronic medical record was generated, in whole or in part, using a voice recognition dictation system. Departure Departure Impression: Primary Impression: Chest pain Additional Impression: Tachycardia Disposition: ADMITTED INPATIENT Admitting Physician: Bala Hernandez Condition: STABLE Referrals: Tristan HERNANDEZ MD (PCP) Problem Qualifiers YOVANI BRUNER DO Sep 07, 2017 17:54
[2017-09-07] MEDS ORDERED: ASPIRIN CHEWABLE 81 MG TABLET. PO ONE (18:00)
[2017-09-07 18:53] LABS: BASO # 0.1 x10^3/uL (0.0-0.2); BASO % 1 % (0-3); EOS % 1 % (0-3); HEMATOCRIT 29.3 % (36.0-47.0); HEMOGLOBIN 9.2 g/dL (12.0-15.5); LYMPH # 0.4 x10^3/uL (1.0-4.8); LYMPH % 4 % (24-48); MEAN CORPUSCULAR HEMOGLOBIN 30 pg (25-35); MEAN CORPUSCULAR HGB CONC 31 g/dL (31-37); MEAN CORPUSCULAR VOLUME 96 fL (79-100); MONO % 7 % (0-9); NEUT % 88 % (31-73); PLATELET COUNT 133 x10^3/uL (140-400); RED BLOOD COUNT 3.06 x10^6/uL (3.50-5.40); RED CELL DISTRIBUTION WIDTH 15.7 % (11.5-14.5); WHITE BLOOD COUNT 10.3 x10^3/uL (4.0-11.0)
[2017-09-07 19:05] LABS: CALCIUM 7.7 mg/dL (8.5-10.1); CREATININE 2.6 mg/dL (0.6-1.0); GFR 18.5
[2017-09-07 19:16] LABS: ALBUMIN 2.7 g/dL (3.4-5.0); ALBUMIN/GLOBULIN RATIO 0.8 (1.0-1.7); TOTAL BILIRUBIN 0.4 mg/dL (0.2-1.0); TOTAL PROTEIN 6.2 g/dL (6.4-8.2)
[2017-09-07 19:29] LABS: % EOS 2 % (0-5); ANISOCYTOSIS SLIGHT; PLT ESTIMATE DECREASED (ADEQUATE)
[2017-09-07 19:30] LABS: POIKILOCYTOSIS SLIGHT
[2017-09-07] MEDS ORDERED: IOHEXOL 300 MG/ML 100ML VIAL. IV ONE (21:00)
[2017-09-07] MEDS ORDERED: CONTRAST GIVEN MC PRN (21:00)
[2017-09-07] MEDS ORDERED: fentaNYL PF VIAL 100 MCG/2 ML VIAL IV PRN (21:00)
[2017-09-07] MEDS ORDERED: NITROGLYCERIN SUBLINGUAL 0.4 MG BOTTLE OF 25. SL PRN (21:00)
[2017-09-07] MEDS ORDERED: ONDANSETRON PF 4 MG/2 ML VIAL. IV PRN (21:00)
--- NOTE | 2017-09-07 21:35 | RAD ---
CTA Chest with contrast: Clinical History: central cp during dialysis today inj 75ml Omni 300 injection verified with nephrology no prev. Axial helical images of the chest were obtained after the administration of 75 cc of IV Omni 300 and timed appropriately for a pulmonary arterial study. Conventional axial reconstruction was performed in addition to coronal, sagittal and bilateral oblique MIP (maximum intensity projection). This study was ordered to detect possible pulmonary embolism. There are no filling defects to suggest pulmonary embolism. There are numerous mild and moderately enlarged mediastinal lymph nodes and numerous small hilar lymph nodes. There are multiple mildly moderately enlarged axillary lymph nodes on the left and numerous small axillary lymph nodes on the right. There is small pleural effusions with adjacent infiltrates bilaterally. The thoracic aorta appears normal. Impression: 1. No evidence of pulmonary embolism. 2. Small pleural effusions bilaterally. 3. Moderate mediastinal lymphadenopathy. This could be idiopathic such as sarcoidosis but could be neoplastic such as lymphoma. PQRS Compliance Statement: One or more of the following individualized dose reduction techniques were utilized for this examination: 1. Automated exposure control 2. Adjustment of the mA and/or kV according to patient size 3. Use of iterative reconstruction technique Electronically signed by: Abhay Grande III, MD (09/07/2017 9:31 PM) [facility]
[2017-09-07 23:30] VITALS: BP 155/62
[2017-09-08] VITALS: BP 155/62
[2017-09-08 03:00] VITALS: BP 144/65
[2017-09-08 06:34] LABS: BASO # 0.1 x10^3/uL (0.0-0.2); BASO % 1 % (0-3); EOS % 1 % (0-3); HEMATOCRIT 29.7 % (36.0-47.0); LYMPH # 0.4 x10^3/uL (1.0-4.8); LYMPH % 4 % (24-48); MEAN CORPUSCULAR HEMOGLOBIN 30 pg (25-35); MEAN CORPUSCULAR HGB CONC 30 g/dL (31-37); MEAN CORPUSCULAR VOLUME 98 fL (79-100); MONO % 6 % (0-9); NEUT % 88 % (31-73); PLATELET COUNT 141 x10^3/uL (140-400); RED BLOOD COUNT 3.02 x10^6/uL (3.50-5.40); RED CELL DISTRIBUTION WIDTH 16.5 % (11.5-14.5); WHITE BLOOD COUNT 9.9 x10^3/uL (4.0-11.0)
[2017-09-08 06:57] LABS: CALCIUM 8.1 mg/dL (8.5-10.1)
[2017-09-08 06:58] LABS: CREATININE 2.7 mg/dL (0.6-1.0); GFR 17.7; POTASSIUM 3.7 mmol/L (3.5-5.1)
[2017-09-08 07:00] VITALS: BP 128/87
[2017-09-08] MEDS ORDERED: DEXTROSE 50% 25 GM / 50ML DISP.SYRIN. IV ONE ×2 (07:00→07:01)
--- NOTE | 2017-09-08 08:10 | RAD ---
AP chest 09/07/2017 Comparison: AP chest 08/28/2017 Clinical indication: Shortness of breath and shortness of breath. Findings: There is a tunneled right IJ central venous catheter with distal tip overlying the upper SVC level. Left chest wall cardiac connection device in similar position. There is persistent cardiomegaly and pulmonary venous congestion. There is mild bibasilar atelectasis. There are small bilateral pleural effusions. No pneumothorax. Impression: 1. Persistent cardiomegaly, pulmonary venous congestion and small bilateral pleural effusions. 2. Mild bibasilar atelectasis.
--- NOTE | 2017-09-08 08:40 | PDOC2 ---
CARDIAC CONSULT DATE OF CONSULT Date of Consult DATE: 09/08/17 TIME: 08:28 REASON FOR CONSULT Reason for Consult: Chest pain REFERRING PHYSICIAN Referring Physician: morro SOURCE Source: Chart review, Patient HISTORY OF PRESENT ILLNESS HISTORY OF PRESENT ILLNESS This is a pleasant 67 yo female admitted for complains of chest pain.Reports mid chest pressure lasting about 30 minutes of high intesity and finally better after 2 NTG. This occurred 15 minutes after start of HD. Associated with SOA but no diaphoresis, palpitations, and nonradiating discomfort. Her CP lingered on after getting the NTG but overnight is completely gone. She also noted self with lower BP during dialysis. She was noted this morning with another hypoglycemic reaction. Otherwise she is symptom free. Denies daily heartburn. She had recent prior admission and was noncompliant with her medications at that time but currently she has been taking her meds. PAST MEDICAL HISTORY Past Medical History Cardiovascular: CAD, CHF, HTN, NM, Hyperlipidemia Pulmonary: COPD, severe pulmonary HTN GI: No pertinent hx Heme/Onc: Anemia NOS Hepatobiliary: No pertinent hx Psych: Depression Rheumatologic: No pertinent hx Infectious disease: No pertinent hx Renal/: Chronic renal insuff Endocrine: Diabetes PAST SURGICAL HISTORY Past Surgical History Cholecystectomy, , Other (Fem pop bypass, LBKA, AICD, PCI/BMS to ramus , right toe amputations) FAMILY HISTORY Family History Cancer, Chronic Bronchitis, Diabetes, Hypertension SOCIAL HISTORY Social History Smoke: No ALCOHOL: none Drugs: None Lives: with Family CURRENT MEDICATIONS CURRENT MEDICATIONS Current Medications Medications (Trade) Dose Ordered Sig/Slick Route PRN Reason Start Time Stop Time Status Last Admin Dose Admin Iohexol (Omnipaque 300 Mg/ml) 75 ml 1X ONCE IV 09/07/17 21:00 09/07/17 21:01 DC 09/07/17 21:07 ALLERGIES ALLERGIES: Coded Allergies: No Known Drug Allergies (Unverified , 09/07/17) ROS Review of System 14 point ROS evaluated with pertinent positives noted per HPI PHYSICAL EXAM General: Alert, Oriented X3, Cooperative, No acute distress Lungs: Other (basilar crackles) Heart: Regular rate (SR), Other (2/6 systolic murmur to LLS border) Abdomen: Soft, Other (obese) Extremities: No cyanosis, Other (LBKA) Skin: No breakdown, No significant lesion Neuro: Normal speech, Sensation intact Psych/Mental Status: Mental status NL, Mood NL MUSCULOSKELETAL: Osteoarthritic changes both hands VITALS VITALS Vital Signs Date Time Temp Pulse Resp B/P (MAP) Pulse Ox O2 Delivery O2 Flow Rate FiO2 09/08/17 07:00 98.2 77 20 128/87 (101) 97 Nasal Cannula 2.0 98.2 LABS Lab: Laboratory Tests Test 09/07/17 18:40 09/08/17 04:45 White Blood Count 10.3 x10^3/uL (4.0-11.0) 9.9 x10^3/uL (4.0-11.0) Red Blood Count 3.06 x10^6/uL (3.50-5.40) 3.02 x10^6/uL (3.50-5.40) Hemoglobin 9.2 g/dL (12.0-15.5) 9.0 g/dL (12.0-15.5) Hematocrit 29.3 % (36.0-47.0) 29.7 % (36.0-47.0) Mean Corpuscular Volume 96 fL (79-100) 98 fL (79-100) Mean Corpuscular Hemoglobin 30 pg (25-35) 30 pg (25-35) Mean Corpuscular Hemoglobin Concent 31 g/dL (31-37) 30 g/dL (31-37) Red Cell Distribution Width 15.7 % (11.5-14.5) 16.5 % (11.5-14.5) Platelet Count 133 x10^3/uL (140-400) 141 x10^3/uL (140-400) Neutrophils (%) (Auto) 88 % (31-73) 88 % (31-73) Lymphocytes (%) (Auto) 4 % (24-48) 4 % (24-48) Monocytes (%) (Auto) 7 % (0-9) 6 % (0-9) Eosinophils (%) (Auto) 1 % (0-3) 1 % (0-3) Basophils (%) (Auto) 1 % (0-3) 1 % (0-3) Neutrophils # (Auto) 9.0 x10^3uL (1.8-7.7) 8.6 x10^3uL (1.8-7.7) Lymphocytes # (Auto) 0.4 x10^3/uL (1.0-4.8) 0.4 x10^3/uL (1.0-4.8) Monocytes # (Auto) 0.7 x10^3/uL (0.0-1.1) 0.6 x10^3/uL (0.0-1.1) Eosinophils # (Auto) 0.1 x10^3/uL (0.0-0.7) 0.1 x10^3/uL (0.0-0.7) Basophils # (Auto) 0.1 x10^3/uL (0.0-0.2) 0.1 x10^3/uL (0.0-0.2) Segmented Neutrophils % 84 % (35-66) Band Neutrophils % 1 % (0-9) Lymphocytes % 7 % (24-48) Monocytes % 6 % (0-10) Eosinophils % 2 % (0-5) Platelet Estimate Decreased (ADEQUATE) Poikilocytosis Slight Anisocytosis Slight Sodium Level 139 mmol/L (136-145) 140 mmol/L (136-145) Potassium Level 4.0 mmol/L (3.5-5.1) 3.7 mmol/L (3.5-5.1) Chloride Level 104 mmol/L (98-107) 103 mmol/L (98-107) Carbon Dioxide Level 23 mmol/L (21-32) 22 mmol/L (21-32) Anion Gap 12 (6-14) 15 (6-14) Blood Urea Nitrogen 20 mg/dL (7-20) 20 mg/dL (7-20) Creatinine 2.6 mg/dL (0.6-1.0) 2.7 mg/dL (0.6-1.0) Estimated GFR (Cockcroft-Gault) 18.5 17.7 BUN/Creatinine Ratio 8 (6-20) Glucose Level 77 mg/dL (70-99) 35 mg/dL (70-99) Calcium Level 7.7 mg/dL (8.5-10.1) 8.1 mg/dL (8.5-10.1) Total Bilirubin 0.4 mg/dL (0.2-1.0) Aspartate Amino Transf (AST/SGOT) 23 U/L (15-37) Alanine Aminotransferase (ALT/SGPT) 14 U/L (14-59) Alkaline Phosphatase 87 U/L (46-116) Troponin I Quantitative 0.039 ng/mL (0.000-0.055) 0.044 ng/mL (0.000-0.055) Total Protein 6.2 g/dL (6.4-8.2) Albumin 2.7 g/dL (3.4-5.0) Albumin/Globulin Ratio 0.8 (1.0-1.7) ECHOCARDIOGRAM ECHOCARDIOGRAM <Conclusion> Left ventricle systolic function is moderate to severely impaired. The Ejection Fraction is 25%. Mild aortic regurgitation. Mild to moderate mitral regurgitation. Mild tricuspid regurgitation. There is moderate to severe pulmonary hypertension. The PA pressure was estimated at 60 mmHg. There is no evidence of significant pericardial effusion. DATE: 11/21/16 1524 HEART CATH HEART CATH Conclusion 1. Severely elevated filling pressures. LVEDP 33 mm Hg. 2. Two vessel coronary artery disease. 3. Successful PCI to the proximal ramus with a 3.0/15 BMS. Recommendations ASA 81mg daily Prasugrel 10mg daily Aggressive medical therapy. Transfer to ICU for Bipap titration and fluid mgmt. DATE: 08/31/16 1035 ASSESSMENT/PLAN ASSESSMENT/PLAN 1. NSTEMI: troponin at 0.4, EKG changes to anterolateral leads by comparison possibly strain. Likely type 2. No further CP recurrence. 2. Chronic systolic CHF: compensated 2. New ESRD 3. ICM: Last EF at 25% 4. AICD in situ: (Biotronik): recent device check was normal 5. CAD. PCI/BMS to ramus 08/2016. 6. HTN: initially labile 7. DM2; continues to have hypoglycemic episodes 8. COPD: O2 dependent Recommendations 1. DAPT. Continue with home, regimen secondary prevention. 2. Fluid off loading per HD. 3. MPI today, will discuss with primary residential insurance inspector Problems: SAM SEARS APRN Sep 08, 2017 08:40
[2017-09-08] MEDS ORDERED: IV NORMAL SALINE 1000ML BAG 1,000 ML IV PRN ×2 (10:16)
[2017-09-08] MEDS ORDERED: ACETAMINOPHEN 500 MG TABLET PO PRN (10:30)
[2017-09-08] MEDS ORDERED: LABETALOL 20 MG/4 ML DISP.SYRIN. IVP PRN (10:30)
[2017-09-08] MEDS ORDERED: cloNIDine HCL 0.1 MG TABLET PO PRN (10:30)
[2017-09-08] MEDS ORDERED: diphenhydrAMINE 50 MG/ML VIAL IV PRN ×2 (10:30)
[2017-09-08] MEDS ORDERED: ALBUMIN HUMAN 25% 200 ML IV PRN (10:30)
[2017-09-08] MEDS ORDERED: DIALYSIS PATIENT. MC PRN (10:30)
--- NOTE | 2017-09-08 10:40 | PDOC1 ---
History and Physical Date of Admission Date of Admission DATE: 09/07/17 Identification/Chief Complaint Chief Complaint Chest pain Problems: Source Source: Patient History of Present Illness History of Present Illness Pt was brought to the emergency room by ambulance from HD yesterday when she started to experience chest pain that did not improve with nitroglycerin. Pt was recently started on HD and this was her 4th session outpatient. She says that she has been experiencing chest pain with each HD session about 15-20 minutes into the session starting. She will get short of breath, her blood pressure drops, and then about 20 minutes later the symptoms resolve. She has otherwise not had any chest pain or similar symptoms. Pt states that the HD nurse told her that this was likely due to anxiety but pt states that she has not been feeling anxious and does not feel that it is related to anxiety. Pt was given ASA in the ambulance. States that her oxygen initially went down, she was experiencing cold chills, but these symptoms eventually resolved. She is currently feeling well and has not had reoccurrence of chest pain. Past Medical History Cardiovascular: CAD, CHF, HTN, GA, Hyperlipidemia Pulmonary: Asthma, COPD GI: GERD Heme/Onc: Anemia NOS Hepatobiliary: No pertinent hx Psych: Depression Musculoskeletal: Osteoarthritis Rheumatologic: No pertinent hx Infectious disease: No pertinent hx ENT: No pertinent hx Renal/: Chronic renal insuff Endocrine: Diabetes, Hypothyroidism Dermatology: No pertinent hx Past Surgical History Past Surgical History: Cholecystectomy, , Other (toe amputation, left BKA, right and left fem/pop, AICD placement) Family History Family History: Cancer, Chronic Bronchitis, Diabetes, Hypertension Social History Smoke: <1 pack per day ALCOHOL: none Drugs: None Current Problem List Problem List Problems Medical Problems: (1) Chest pain Status: Acute (2) Tachycardia Status: Acute Problems: Current Medications Current Medications Current Medications Aspirin (Children'S Aspirin) 324 mg 1X ONCE PO ; Start 09/07/17 at 18:00; Stop 09/07/17 at 18:01; Status DC Iohexol (Omnipaque 300 Mg/ml) 75 ml 1X ONCE IV Last administered on t 21:07; Start 09/07/17 at 21:00; Stop 09/07/17 at 21:01; Status DC Info (Do NOT chart on this entry -- for MONITORING) 1 each PRN DAILY PRN MC SEE COMMENTS; Start 09/07/17 at 21:00; Stop 09/09/17 at 20:59 Ondansetron HCl (Zofran) 4 mg PRN Q8HRS PRN IV NAUSEA/VOMITING; Start at 21:00; Stop 09/08/17 at 20:59 Fentanyl Citrate (Fentanyl 2ml Vial) 50 mcg PRN Q1HR PRN IV PAIN; Start at 21:00; Stop 09/08/17 at 20:59 Nitroglycerin (Nitrostat) 0.4 mg PRN Q5MIN PRN SL CHEST PAIN; Start 09/07/17 at 21:00; Stop 09/08/17 at 20:59 Dextrose (Dextrose 50%-Water Syringe) 25 gm STK-MED ONCE IV ; Start 09/08/17 at 07:01; Stop 09/08/17 at 07:02; Status DC Active Scripts Active Breo Ellipta 200-25 Mcg INH (Fluticasone/Vilanterol) 1 Each Blst.w.dev 1 Puff IH DAILY 30 Days Culturelle (Lactobacillus Rhamnosus Gg) 1 Each Cap.sprink 1 Cap PO BID 30 Days Lisinopril 20 Mg Tablet 20 Mg PO DAILY 30 Days Carvedilol 6.25 Mg Tablet 6.25 Mg PO BIDWMEALS Atorvastatin Calcium 10 Mg Tablet 10 Mg PO QHS Albuterol Sulfate Neb Soln (Albuterol Sulfate) 2.5 Mg/3 Ml Vial.neb 2.5 Mg NEB RTQID Reported Levothyroxine Sodium 150 Mcg Tablet 150 Mcg PO DAILYAC Lantus Solostar (Insulin Glargine,Hum.rec.anlog) 100 Unit/1 Ml Insuln.pen 3 Unit SQ HS Effient (Prasugrel Hcl) 10 Mg Tablet 10 Mg PO DAILY Sodium Bicarbonate 325 Mg Tablet 10 Gr PO BID Aspirin 81 Mg Tab.chew 1 Tab PO DAILY Novolog Flexpen (Insulin Aspart) 100 Unit/1 Ml Insuln.pen 5 Unit SQ TIDWMEALS Celexa (Citalopram Hydrobromide) 20 Mg Tablet 20 Mg PO DAILY Vitamin D2 (Ergocalciferol (Vitamin D2)) 50,000 Unit Capsule 50,000 Unit PO WEEKLY every sunday Allergies Allergies: Coded Allergies: No Known Drug Allergies (Unverified , 09/07/17) ROS General: YES: Chills, No: Night Sweats PSYCHOLOGICAL ROS: No: Anxiety, Depression Eyes: Yes Decreased vision, No Eye Pain HEENT: No: Nasal congestion, Sore Throat ALLERGY AND IMMUNOLOGY: No: Hives, Post Nasal Drip Hematological and Lymphatic: No: Bleeding Problems, Blood Clots Respiratory: YES: Cough, No: Shortness of breath, Sputum Changes, Wheezing Cardiovascular: yes Chest Pain, yes Edema, No Palpitations Gastrointestinal: No Nausea, No Vomiting, No Abdominal Pain, No Diarrhea, No Constipation Genitourinary: No Dysuria, No Urgency Musculoskeletal: No Joint Pain, No Muscle Pain Neurological: No Impaired Coord/balance, No Numbness/Tingling, No Weakness Skin: No Rash, No Skin Lesion Changes Physical Exam General: Alert, Oriented X3, Cooperative, No acute distress HEENT: Atraumatic, PERRLA, EOMI, Mucous membr. moist/pink Lungs: Clear to auscultation, Normal air movement Heart: RRR, no rubs, no gallops, no murmurs Abdomen: Normal bowel sounds, Soft, No tenderness, No hepatosplenomegaly Extremities: Other (left BKA, 2+ pitting edema RLE) Skin: No rashes, No breakdown, No significant lesion Neuro: Normal speech, Strength at 5/5 X4 ext, Normal tone, Sensation intact Psych/Mental Status: Mental status NL, Mood NL Vitals Vitals Vital Signs Date Time Temp Pulse Resp B/P (MAP) Pulse Ox O2 Delivery O2 Flow Rate FiO2 09/08/17 07:00 98.2 77 20 128/87 (101) 97 Nasal Cannula 2.0 98.2 Labs Labs Laboratory Tests Test 09/07/17 18:40 09/08/17 04:45 09/08/17 08:55 White Blood Count 10.3 x10^3/uL (4.0-11.0) 9.9 x10^3/uL (4.0-11.0) Red Blood Count 3.06 x10^6/uL (3.50-5.40) 3.02 x10^6/uL (3.50-5.40) Hemoglobin 9.2 g/dL (12.0-15.5) 9.0 g/dL (12.0-15.5) Hematocrit 29.3 % (36.0-47.0) 29.7 % (36.0-47.0) Mean Corpuscular Volume 96 fL (79-100) 98 fL (79-100) Mean Corpuscular Hemoglobin 30 pg (25-35) 30 pg (25-35) Mean Corpuscular Hemoglobin Concent 31 g/dL (31-37) 30 g/dL (31-37) Red Cell Distribution Width 15.7 % (11.5-14.5) 16.5 % (11.5-14.5) Platelet Count 133 x10^3/uL (140-400) 141 x10^3/uL (140-400) Neutrophils (%) (Auto) 88 % (31-73) 88 % (31-73) Lymphocytes (%) (Auto) 4 % (24-48) 4 % (24-48) Monocytes (%) (Auto) 7 % (0-9) 6 % (0-9) Eosinophils (%) (Auto) 1 % (0-3) 1 % (0-3) Basophils (%) (Auto) 1 % (0-3) 1 % (0-3) Neutrophils # (Auto) 9.0 x10^3uL (1.8-7.7) 8.6 x10^3uL (1.8-7.7) Lymphocytes # (Auto) 0.4 x10^3/uL (1.0-4.8) 0.4 x10^3/uL (1.0-4.8) Monocytes # (Auto) 0.7 x10^3/uL (0.0-1.1) 0.6 x10^3/uL (0.0-1.1) Eosinophils # (Auto) 0.1 x10^3/uL (0.0-0.7) 0.1 x10^3/uL (0.0-0.7) Basophils # (Auto) 0.1 x10^3/uL (0.0-0.2) 0.1 x10^3/uL (0.0-0.2) Segmented Neutrophils % 84 % (35-66) Band Neutrophils % 1 % (0-9) Lymphocytes % 7 % (24-48) Monocytes % 6 % (0-10) Eosinophils % 2 % (0-5) Platelet Estimate Decreased (ADEQUATE) Poikilocytosis Slight Anisocytosis Slight Sodium Level 139 mmol/L (136-145) 140 mmol/L (136-145) Potassium Level 4.0 mmol/L (3.5-5.1) 3.7 mmol/L (3.5-5.1) Chloride Level 104 mmol/L (98-107) 103 mmol/L (98-107) Carbon Dioxide Level 23 mmol/L (21-32) 22 mmol/L (21-32) Anion Gap 12 (6-14) 15 (6-14) Blood Urea Nitrogen 20 mg/dL (7-20) 20 mg/dL (7-20) Creatinine 2.6 mg/dL (0.6-1.0) 2.7 mg/dL (0.6-1.0) Estimated GFR (Cockcroft-Gault) 18.5 17.7 BUN/Creatinine Ratio 8 (6-20) Glucose Level 77 mg/dL (70-99) 35 mg/dL (70-99) Calcium Level 7.7 mg/dL (8.5-10.1) 8.1 mg/dL (8.5-10.1) Total Bilirubin 0.4 mg/dL (0.2-1.0) Aspartate Amino Transf (AST/SGOT) 23 U/L (15-37) Alanine Aminotransferase (ALT/SGPT) 14 U/L (14-59) Alkaline Phosphatase 87 U/L (46-116) Troponin I Quantitative 0.039 ng/mL (0.000-0.055) 0.044 ng/mL (0.000-0.055) 0.434 ng/mL (0.000-0.055) Total Protein 6.2 g/dL (6.4-8.2) Albumin 2.7 g/dL (3.4-5.0) Albumin/Globulin Ratio 0.8 (1.0-1.7) Laboratory Tests Test 09/07/17 18:40 09/08/17 04:45 09/08/17 08:55 White Blood Count 10.3 x10^3/uL (4.0-11.0) 9.9 x10^3/uL (4.0-11.0) Red Blood Count 3.06 x10^6/uL (3.50-5.40) 3.02 x10^6/uL (3.50-5.40) Hemoglobin 9.2 g/dL (12.0-15.5) 9.0 g/dL (12.0-15.5) Hematocrit 29.3 % (36.0-47.0) 29.7 % (36.0-47.0) Mean Corpuscular Volume 96 fL (79-100) 98 fL (79-100) Mean Corpuscular Hemoglobin 30 pg (25-35) 30 pg (25-35) Mean Corpuscular Hemoglobin Concent 31 g/dL (31-37) 30 g/dL (31-37) Red Cell Distribution Width 15.7 % (11.5-14.5) 16.5 % (11.5-14.5) Platelet Count 133 x10^3/uL (140-400) 141 x10^3/uL (140-400) Neutrophils (%) (Auto) 88 % (31-73) 88 % (31-73) Lymphocytes (%) (Auto) 4 % (24-48) 4 % (24-48) Monocytes (%) (Auto) 7 % (0-9) 6 % (0-9) Eosinophils (%) (Auto) 1 % (0-3) 1 % (0-3) Basophils (%) (Auto) 1 % (0-3) 1 % (0-3) Neutrophils # (Auto) 9.0 x10^3uL (1.8-7.7) 8.6 x10^3uL (1.8-7.7) Lymphocytes # (Auto) 0.4 x10^3/uL (1.0-4.8) 0.4 x10^3/uL (1.0-4.8) Monocytes # (Auto) 0.7 x10^3/uL (0.0-1.1) 0.6 x10^3/uL (0.0-1.1) Eosinophils # (Auto) 0.1 x10^3/uL (0.0-0.7) 0.1 x10^3/uL (0.0-0.7) Basophils # (Auto) 0.1 x10^3/uL (0.0-0.2) 0.1 x10^3/uL (0.0-0.2) Segmented Neutrophils % 84 % (35-66) Band Neutrophils % 1 % (0-9) Lymphocytes % 7 % (24-48) Monocytes % 6 % (0-10) Eosinophils % 2 % (0-5) Platelet Estimate Decreased (ADEQUATE) Poikilocytosis Slight Anisocytosis Slight Sodium Level 139 mmol/L (136-145) 140 mmol/L (136-145) Potassium Level 4.0 mmol/L (3.5-5.1) 3.7 mmol/L (3.5-5.1) Chloride Level 104 mmol/L (98-107) 103 mmol/L (98-107) Carbon Dioxide Level 23 mmol/L (21-32) 22 mmol/L (21-32) Anion Gap 12 (6-14) 15 (6-14) Blood Urea Nitrogen 20 mg/dL (7-20) 20 mg/dL (7-20) Creatinine 2.6 mg/dL (0.6-1.0) 2.7 mg/dL (0.6-1.0) Estimated GFR (Cockcroft-Gault) 18.5 17.7 BUN/Creatinine Ratio 8 (6-20) Glucose Level 77 mg/dL (70-99) 35 mg/dL (70-99) Calcium Level 7.7 mg/dL (8.5-10.1) 8.1 mg/dL (8.5-10.1) Total Bilirubin 0.4 mg/dL (0.2-1.0) Aspartate Amino Transf (AST/SGOT) 23 U/L (15-37) Alanine Aminotransferase (ALT/SGPT) 14 U/L (14-59) Alkaline Phosphatase 87 U/L (46-116) Troponin I Quantitative 0.039 ng/mL (0.000-0.055) 0.044 ng/mL (0.000-0.055) 0.434 ng/mL (0.000-0.055) Total Protein 6.2 g/dL (6.4-8.2) Albumin 2.7 g/dL (3.4-5.0) Albumin/Globulin Ratio 0.8 (1.0-1.7) VTE Prophylaxis Ordered VTE Prophylaxis Devices: Yes VTE Pharmacological Prophylaxi: No Assessment/Plan Assessment/Plan Pt is a 67yo CF admitted for chest pain 1)Chest pain- occurring with HD. There has been slight increase in trend of troponins since admission. Cardiology has already seen and ordered stress test. No active CP. 2)ESRD- Nephrology has been consulted. Pt to get HD today as her session yesterday was cut short. Electrolytes stable. Cr currently 2.7. Pt continued on NaHCO3 3)Chronic respiratory failure- 2/2 CHF and pulmonary HTN. Currently stable. 4)Severe pulmonary HTN 5)CHF- systolic, mildly decompensated. Pt to get HD today. Pt normally on Lasix. Will hold for now 6)HTN- pt normally on multiple medications including Lasix, Norvasc, Hydralazine , Lisinopril, Carvedilol, Spironolactone and Imdur. Will hold medications for now as her BP is stable and she will be receiving HD today 7)DM2- pt with low blood sugar this morning without insulin administration. Will have SSI available if needed and hold home doses of insulin 8)Asthma- currently well controlled. Will have albuterol breathing treatments available. Hold Breo 9)Hypothyroidism- last TSH mildly elevated. Pt continued on Levothyroxine 150mcg, will repeat TSH this admission 10)HLD- pt continued on Atorvastatin 11)Depression- pt continued on Citalopram 20mg 12)Abnormal CT Chest- with moderate mediastinal LA. DDx including sarcoidosis vs lymphoma. Plan on follow up outpatient NELI AMOR MD Sep 08, 2017 10:40
[2017-09-08] MEDS ORDERED: DEXTROSE 50% 25 GM / 50ML DISP.SYRIN. IV PRN (10:45)
[2017-09-08 11:00] VITALS: BP 143/57
--- NOTE | 2017-09-08 11:32 | EKG ---
[facility] [address] [place] [address] Test Date: 2017-09-07 Test Time: 17:31:10 Pat Name: ANABELLE COFFMAN Department: Room: Gender: F [employer] Ext[employer]uder: : 1950 Requested By: YOVANI BRUNER Order Number: [id number] Reading MD: Measurements Intervals [place] Rate: 108 P: 35 AK: 118 QRS: -15 QRSD: 92 T: 143 QT: 326 QTc: 441 Interpretive Statements SINUS TACHYCARDIA POSSIBLE LEFT ATRIAL ABNORMALITY LEFTWARD AXIS CONSIDER LEFT VENTRICULAR HYPERTROPHY QRS(T) CONTOUR ABNORMALITY CONSISTENT WITH ANTEROSEPTAL INFARCT PROBABLY OLD ST & T ABNORMALITY, CONSIDER ANTERIOR ISCHEMIA OR LEFT VENTRICULAR STRAIN LATERAL ISCHEMIA OR LEFT VENTRICULAR STRAIN ABNORMAL ECG RI6.01 No previous ECG available for comparison
[2017-09-08] MEDS: ALBUTEROL SULFATE 2.5 MG/3 ML NEBU. NEB SCH ×3 (11:52→19:21)
[2017-09-08] MEDS: INSULIN ASPART 300 UNITS/3 ML INSULN.PEN SQ SCH ×2 (12:00→17:00)
[2017-09-08] MEDS: SODIUM BICARBONATE 650 MG TABLET. PO SCH ×2 (13:29→20:53)
[2017-09-08] MEDS: LEVOTHYROXINE 150 MCG TABLET PO SCH (13:29)
[2017-09-08] MEDS: PRASUGREL 10 MG TABLET. PO SCH (13:29)
[2017-09-08] MEDS: CITALOPRAM 20 MG TABLET. PO SCH (13:29)
[2017-09-08 19:10] VITALS: BP 155/46
[2017-09-08] MEDS ORDERED: ATORVASTATIN CALCIUM 10 MG TABLET. PO SCH (21:00)
[2017-09-08 23:40] VITALS: BP 135/54
--- NOTE | 2017-09-09 00:17 | CONS ---
DATE OF CONSULTATION: 09/08/2017 REASON FOR CONSULTATION: Renal failure. HISTORY OF PRESENT ILLNESS: This is a 67-year-old female who was brought to the hospital from dialysis due to chest pain. She has undergone CT angiogram, which reveals no evidence of pulmonary embolus. She is currently being evaluated by cardiology. She will need ongoing dialysis and particular dialysis today following CT angiogram for IV contrast removal. The patient denies further chest pain at this time. PAST MEDICAL HISTORY: Diabetes mellitus, end-stage renal disease, hemodialysis dependent, anemia of chronic kidney disease, secondary hyperparathyroidism, renal disease, hypertension, hyperlipidemia, COPD/asthma, GE reflux disease, degenerative arthritis, cholecystectomy, , left below the knee amputation, toe amputation, right and left femoral-popliteal bypass grafting and AICD placement. ALLERGIES: None. MEDICATIONS: Per med list and reviewed. FAMILY HISTORY: Notable for diabetes mellitus and hypertension. SOCIAL HISTORY: The patient resides independently, less than one pack of cigarettes per day smoking and alcohol none. REVIEW OF SYSTEMS: No headaches, sinus problems, nasal drainage, epistaxis, change in vision or hearing. No difficulty swallowing. No fever, chills, cough, sputum production or hemoptysis. No chest pain. Some shortness of breath with exertion. No abdominal pain. No upper or lower gastrointestinal blood loss. No nausea, vomiting, diarrhea, seizures or malignancies. PHYSICAL EXAMINATION: GENERAL APPEARANCE: The patient awake and conversant. HEENT: Clear. NECK: No increased JVD. No thyromegaly, mass or adenopathy. LUNGS: Clear. CARDIAC: Without S3 or rub. ABDOMEN: Soft, nontender, no bruits. EXTREMITIES: 1+ edema. NEUROLOGIC: Nonfocal localizing. PSYCHIATRIC: Good attention to detail and appropriate affect. LABORATORY DATA: Hemoglobin 9.9, hematocrit 29.7, white count 9.9. Potassium 3.7, CO2 22, creatinine 2.7. IMPRESSION: 1. End-stage renal disease secondary to diabetic nephropathy -- dialysis dependent on Sunday, Sunday and Sunday. 2. Chest pain -- no evidence of pulmonary embolus, currently cardiac evaluation in progress. 3. Anemia of chronic kidney disease. RECOMMENDATIONS: 1. Ongoing dialysis. We will electrodialysis today for IV contrast removal, then we will continue on Sunday, Sunday and Sunday, an exception for anemia of chronic kidney disease. 2. Phosphate binder as needed. 3. We will follow. MACHO HYLTON MD DR: KARON/juan c JOB#: [id number] / [id number]
[2017-09-09 03:00] VITALS: BP 129/42
[2017-09-09 06:15] LABS: CALCIUM 7.1 mg/dL (8.5-10.1); CREATININE 2.6 mg/dL (0.6-1.0); GFR 18.5
[2017-09-09 07:00] VITALS: BP 133/41
[2017-09-09] MEDS: ALBUTEROL SULFATE 2.5 MG/3 ML NEBU. NEB SCH ×3 (07:49→16:02)
[2017-09-09] MEDS: INSULIN ASPART 300 UNITS/3 ML INSULN.PEN SQ SCH ×2 (08:00→12:00)
[2017-09-09] MEDS ORDERED: REGADENOSON 0.4 MG/5 ML DISP.SYRIN. IV ONE (09:00)
[2017-09-09 11:00] VITALS: BP 139/50
[2017-09-09] MEDS: PRASUGREL 10 MG TABLET. PO SCH (11:17)
[2017-09-09] MEDS: LEVOTHYROXINE 150 MCG TABLET PO SCH (11:18)
[2017-09-09] MEDS: SODIUM BICARBONATE 650 MG TABLET. PO SCH (11:18)
[2017-09-09] MEDS: CITALOPRAM 20 MG TABLET. PO SCH (11:18)
--- NOTE | 2017-09-09 11:36 | PDOC ---
SUBJECTIVE Subjective Pt states that she has not had a reoccurrence of chest pain since admission. Received HD yesterday and they slowed down her dialysis rate for the first 30 minutes which pt tolerated well. She is hoping to go home tonight if her stress test results are normal. OBJECTIVE Vital Signs Vital Signs Date Time Temp Pulse Resp B/P (MAP) Pulse Ox O2 Delivery O2 Flow Rate FiO2 09/09/17 07:51 Nasal Cannula 3.0 09/09/17 07:00 98.1 75 20 133/41 (71) 94 Nasal Cannula 2.0 98.1 09/09/17 03:00 98.2 76 22 129/42 (71) 95 Nasal Cannula 3.0 98.2 09/08/17 23:40 99.2 94 18 135/54 (81) 92 Nasal Cannula 3.0 99.2 09/08/17 20:00 Nasal Cannula 2.0 09/08/17 19:23 98 Nasal Cannula 2.0 09/08/17 19:10 98.9 92 18 155/46 (82) 95 Nasal Cannula 2.0 98.9 09/08/17 11:56 98 Nasal Cannula 2.0 I & O Intake and Output 09/09/17 07:00 Intake Total 1650 ml Output Total 350 ml Balance 1300 ml Intake Oral 1650 ml Output Urine Total 350 ml # Voids 1 PHYSICAL EXAM Physical Exam General: Alert, Oriented X3, Cooperative, No acute distress HEENT: Atraumatic, PERRLA, EOMI, Mucous membr. moist/pink Lungs: Clear to auscultation, decreased air movement throughout Heart: RRR, no rubs, no gallops, no murmurs Abdomen: Normal bowel sounds, Soft, No tenderness, No hepatosplenomegaly Extremities: Other (left BKA, 1+ pitting edema RLE) Skin: No rashes, No breakdown, No significant lesion Neuro: Normal speech, Strength at 5/5 X4 ext, Normal tone, Sensation intact Psych/Mental Status: Mental status NL, Mood NL ASSESSMENT/PLAN Assessment/Plan Pt is a 67yo CF admitted for chest pain 1)Chest pain- occurring with HD. There has been slight increase in trend of troponins since admission. Stress test finished today, results pending. Pt has not had any more episodes of CP since admission. If stress test is normal pt is hopeful to be DC'd home tonight. 2)ESRD- Nephrology following. Received HD yesterday and then will be back on / / scheduling. Electrolytes stable. Cr currently 2.7. Pt continued on NaHCO3 3)Chronic respiratory failure- 2/2 CHF and pulmonary HTN. Currently stable. 4)Severe pulmonary HTN 5)CHF- systolic, compensated. Pt to get HD today. Pt normally on Lasix. Holding for now 6)HTN- pt normally on multiple medications including Lasix, Norvasc, Hydralazine , Lisinopril, Carvedilol, Spironolactone and Imdur. Holding as pt's BP has been stable without them. CTM 7)DM2- pt with low blood sugar morning after admission without insulin administration and at goal this morning. Home insulin has been held. SSI available but no doses given. 8)Asthma- currently well controlled. Will have albuterol breathing treatments available. Hold Breo 9)Hypothyroidism- last TSH mildly elevated. Pt continued on Levothyroxine 150mcg, repeat TSH pending 10)HLD- pt continued on Atorvastatin 11)Depression- pt continued on Citalopram 20mg 12)Abnormal CT Chest- with moderate mediastinal LA. DDx including sarcoidosis vs lymphoma. Plan on follow up outpatient Problems: COMMENT Lab Laboratory Tests Test 09/08/17 11:43 09/08/17 17:12 09/08/17 21:05 09/09/17 03:30 Glucose (Fingerstick) 128 mg/dL (70-99) 128 mg/dL (70-99) 205 mg/dL (70-99) Sodium Level 136 mmol/L (136-145) Potassium Level 4.0 mmol/L (3.5-5.1) Chloride Level 102 mmol/L (98-107) Carbon Dioxide Level 26 mmol/L (21-32) Anion Gap 8 (6-14) Blood Urea Nitrogen 19 mg/dL (7-20) Creatinine 2.6 mg/dL (0.6-1.0) Estimated GFR (Cockcroft-Gault) 18.5 Glucose Level 103 mg/dL (70-99) Calcium Level 7.1 mg/dL (8.5-10.1) Test 09/09/17 07:30 Glucose (Fingerstick) 121 mg/dL (70-99) NELI AMOR MD Sep 09, 2017 11:36
--- NOTE | 2017-09-09 13:14 | RAD ---
APPROVED REPORT Test Type: Pharmacological Stress Nurse/Tech: Joseline Leach R.N. Test Indications: chest pain Cardiac History: stent 08/2016, defib, dialysis, dm, smoker Medications: see ehr Medical History: see ehr Resting ECG: sr see print out Resting Heart Rate: 77 bpm Resting Blood Pressure: 142/62mmHg Pretest Chest Pain: No chest pain Nurse/Tech Notes lungs coarse, nonprod coarse cough Consent: The procedure was explained to the patient in lay terms. Informed consent was witnessed. Marquise eout was entered into [employer]. History and Stress Test performed by [facility] [employer]. Details Pharmacologic stress testing was performed using 0.4mg per 5ml of regadenoson given intravenously ove r 7-10 seconds. Stress Symptoms No chest pain or symptoms. POST EXERCISE Reason for Termination: Infusion complete Target HR: No Max HR: 88 bpm Max Blood Pressure: 138/55mmHg Chest Pain: No. Arrhythmia: Yes. pt had a few multifocal pvcs during recovery INTERPRETATION Stress EKG Conclusion: The resting EKG shows a sinus rhythm with LVH and nonspecific anteroseptal ST- T wave changes. The stress EKG shows no significant changes from baseline. No EKG evidence of stressed induced ischemia. Imaging Protocol IMAGE PROTOCOL: Rest Tc-99m/stress Tc-99m 2 days Rest: Stress: Viability: Radiopharm.Tc99m [id number] Sestamibi Dose34.2mCi 33.6mCi Duration 12min. 12min. Img Date 09/08/2017 09/09/2017 Inj-Img [id number]. 60min. Rest Admin Site:IV - Right AntecubitalAdministrator:KINZA Fam Stress Admin Site: IV - Right AntecubitalAdministrator: KINZA Fam STRESS DATA End Diast. Vol.253.0mlAv. Heart Rate77.0bpm End Syst. Vol.166.0mlCO Index BSA0.0L/min Myocardial Pada425.0gEject. Ykgvhfzn69.0% Stress Rates Pk. Fill Rate2.36EDV/secLVtime Pk. Fill 75.89msec Pk. Empty Rate2.19ESV/secLVtime Pk. Mnkua984.08msec 09/26 Pk. Fill1.66EDV/sec Stress Scores Regional WT3.00Summed WT42.00 Regional WM0.00Summed WM31.00 LV Perfusion The stress scans show a defect in the inferior lateral and apical region. The rest scans show a defect in the inferior lateral and apical region. Nuclear scanning shows an infarct in the inferior lateral and apical region with some chato-infarct is chemia. Wall Motion Left ventricular systolic function is globally decreased although somewhat more so in the inferior wa ll. Ejection fraction is 34%. LV Perf. Quant 17 Seg. SSS22.00 17 Seg. SRS18.00 17 Seg. SDS5.00 Stress Defect Extent (% LAD)30.60Rest Defect Extent (% LAD)19.40Rev. Defect Extent (% LAD)21.90 Stress Defect Extent (% LCX) 66.30Rest Defect Extent (% LCX)46.30Rev. Defect Extent (% LCX)20.00 Stress Defect Extent (% RCA)53.30Rest Defect Extent (% RCA)42.20Rev. Defect Extent (% RCA)25.60 Stress Defect Extent (% FANNY)46.70Rest Defect Extent (% FANNY)37.60Rev. Defect Extent (% FANNY)18.70 Conclusion 1. No EKG evidence of stressed induced ischemia. 2. Nuclear imaging shows an infarct in the inferior lateral and apical region with some chato-infarct ischemia. 3. Globally decreased LV systolic function with ejection fraction of 34%. 4. Moderate risk Lexiscan nuclear stress test.
--- NOTE | 2017-09-09 14:04 | PDOC ---
PROGRESS NOTES Subjective Subjective Patient seen and examined Objective Objective Vital Signs Date Time Temp Pulse Resp B/P (MAP) Pulse Ox O2 Delivery O2 Flow Rate FiO2 09/09/17 11:52 Nasal Cannula 3.0 09/09/17 11:00 98.1 86 20 139/50 (79) 93 98.1 Intake and Output 09/09/17 07:00 Intake Total 1650 ml Output Total 350 ml Balance 1300 ml Intake Oral 1650 ml Output Urine Total 350 ml # Voids 1 Physical Exam Abdomen: Normal bowel sounds Heart: Regular rate General: No acute distress Lungs: Other (slightly decreased breath sounds) Assessment Assessment Problems Medical Problems: (1) Chest pain Status: Acute (2) Tachycardia Status: Acute 1. NSTEMI: troponin at 0.4, EKG changes to anterolateral leads by comparison possibly strain. Likely type 2. No further CP recurrence. Feeling better today. MPI testing today. 2. Chronic systolic CHF: compensated 2. New ESRD 3. ICM: Last EF at 25% 4. AICD in situ: ([employer]ron[employer]): recent device check was normal 5. CAD. PCI/BMS to ramus 08/2016. 6. HTN: initially labile 7. DM2; continues to have hypoglycemic episodes 8. COPD: O2 dependent Comment Review of Relevant I have reviewed the following items afua (where applicable) has been applied. Labs Laboratory Tests Test 09/07/17 18:40 09/08/17 04:45 09/08/17 07:37 09/08/17 08:55 White Blood Count 10.3 x10^3/uL (4.0-11.0) 9.9 x10^3/uL (4.0-11.0) Red Blood Count 3.06 x10^6/uL (3.50-5.40) 3.02 x10^6/uL (3.50-5.40) Hemoglobin 9.2 g/dL (12.0-15.5) 9.0 g/dL (12.0-15.5) Hematocrit 29.3 % (36.0-47.0) 29.7 % (36.0-47.0) Mean Corpuscular Volume 96 fL (79-100) 98 fL (79-100) Mean Corpuscular Hemoglobin 30 pg (25-35) 30 pg (25-35) Mean Corpuscular Hemoglobin Concent 31 g/dL (31-37) 30 g/dL (31-37) Red Cell Distribution Width 15.7 % (11.5-14.5) 16.5 % (11.5-14.5) Platelet Count 133 x10^3/uL (140-400) 141 x10^3/uL (140-400) Neutrophils (%) (Auto) 88 % (31-73) 88 % (31-73) Lymphocytes (%) (Auto) 4 % (24-48) 4 % (24-48) Monocytes (%) (Auto) 7 % (0-9) 6 % (0-9) Eosinophils (%) (Auto) 1 % (0-3) 1 % (0-3) Basophils (%) (Auto) 1 % (0-3) 1 % (0-3) Neutrophils # (Auto) 9.0 x10^3uL (1.8-7.7) 8.6 x10^3uL (1.8-7.7) Lymphocytes # (Auto) 0.4 x10^3/uL (1.0-4.8) 0.4 x10^3/uL (1.0-4.8) Monocytes # (Auto) 0.7 x10^3/uL (0.0-1.1) 0.6 x10^3/uL (0.0-1.1) Eosinophils # (Auto) 0.1 x10^3/uL (0.0-0.7) 0.1 x10^3/uL (0.0-0.7) Basophils # (Auto) 0.1 x10^3/uL (0.0-0.2) 0.1 x10^3/uL (0.0-0.2) Segmented Neutrophils % 84 % (35-66) Band Neutrophils % 1 % (0-9) Lymphocytes % 7 % (24-48) Monocytes % 6 % (0-10) Eosinophils % 2 % (0-5) Platelet Estimate Decreased (ADEQUATE) Poikilocytosis Slight Anisocytosis Slight Sodium Level 139 mmol/L (136-145) 140 mmol/L (136-145) Potassium Level 4.0 mmol/L (3.5-5.1) 3.7 mmol/L (3.5-5.1) Chloride Level 104 mmol/L (98-107) 103 mmol/L (98-107) Carbon Dioxide Level 23 mmol/L (21-32) 22 mmol/L (21-32) Anion Gap 12 (6-14) 15 (6-14) Blood Urea Nitrogen 20 mg/dL (7-20) 20 mg/dL (7-20) Creatinine 2.6 mg/dL (0.6-1.0) 2.7 mg/dL (0.6-1.0) Estimated GFR (Cockcroft-Gault) 18.5 17.7 BUN/Creatinine Ratio 8 (6-20) Glucose Level 77 mg/dL (70-99) 35 mg/dL (70-99) Calcium Level 7.7 mg/dL (8.5-10.1) 8.1 mg/dL (8.5-10.1) Total Bilirubin 0.4 mg/dL (0.2-1.0) Aspartate Amino Transf (AST/SGOT) 23 U/L (15-37) Alanine Aminotransferase (ALT/SGPT) 14 U/L (14-59) Alkaline Phosphatase 87 U/L (46-116) Troponin I Quantitative 0.039 ng/mL (0.000-0.055) 0.044 ng/mL (0.000-0.055) 0.434 ng/mL (0.000-0.055) Total Protein 6.2 g/dL (6.4-8.2) Albumin 2.7 g/dL (3.4-5.0) Albumin/Globulin Ratio 0.8 (1.0-1.7) Glucose (Fingerstick) 127 mg/dL (70-99) Test 09/08/17 11:43 09/08/17 17:12 09/08/17 21:05 09/09/17 03:00 Glucose (Fingerstick) 128 mg/dL (70-99) 128 mg/dL (70-99) 205 mg/dL (70-99) Thyroid Stimulating Hormone (TSH) 1.680 uIU/mL (0.358-3.74) Test 09/09/17 03:30 09/09/17 07:30 09/09/17 11:58 Sodium Level 136 mmol/L (136-145) Potassium Level 4.0 mmol/L (3.5-5.1) Chloride Level 102 mmol/L (98-107) Carbon Dioxide Level 26 mmol/L (21-32) Anion Gap 8 (6-14) Blood Urea Nitrogen 19 mg/dL (7-20) Creatinine 2.6 mg/dL (0.6-1.0) Estimated GFR (Cockcroft-Gault) 18.5 Glucose Level 103 mg/dL (70-99) Calcium Level 7.1 mg/dL (8.5-10.1) Glucose (Fingerstick) 121 mg/dL (70-99) 159 mg/dL (70-99) Laboratory Tests Test 09/08/17 17:12 09/08/17 21:05 09/09/17 03:00 09/09/17 03:30 Glucose (Fingerstick) 128 mg/dL (70-99) 205 mg/dL (70-99) Thyroid Stimulating Hormone (TSH) 1.680 uIU/mL (0.358-3.74) Sodium Level 136 mmol/L (136-145) Potassium Level 4.0 mmol/L (3.5-5.1) Chloride Level 102 mmol/L (98-107) Carbon Dioxide Level 26 mmol/L (21-32) Anion Gap 8 (6-14) Blood Urea Nitrogen 19 mg/dL (7-20) Creatinine 2.6 mg/dL (0.6-1.0) Estimated GFR (Cockcroft-Gault) 18.5 Glucose Level 103 mg/dL (70-99) Calcium Level 7.1 mg/dL (8.5-10.1) Test 09/09/17 07:30 09/09/17 11:58 Glucose (Fingerstick) 121 mg/dL (70-99) 159 mg/dL (70-99) Medications Current Medications Aspirin (Children'S Aspirin) 324 mg 1X ONCE PO ; Start 09/07/17 at 18:00; Stop 09/07/17 at 18:01; Status DC Iohexol (Omnipaque 300 Mg/ml) 75 ml 1X ONCE IV Last administered on t 21:07; Start 09/07/17 at 21:00; Stop 09/07/17 at 21:01; Status DC Info (Do NOT chart on this entry -- for MONITORING) 1 each PRN DAILY PRN MC SEE COMMENTS; Start 09/07/17 at 21:00; Stop 09/09/17 at 20:59 Ondansetron HCl (Zofran) 4 mg PRN Q8HRS PRN IV NAUSEA/VOMITING; Start at 21:00; Stop 09/08/17 at 20:59; Status DC Fentanyl Citrate (Fentanyl 2ml Vial) 50 mcg PRN Q1HR PRN IV PAIN; Start at 21:00; Stop 09/08/17 at 20:59; Status DC Nitroglycerin (Nitrostat) 0.4 mg PRN Q5MIN PRN SL CHEST PAIN; Start 09/07/17 at 21:00; Stop 09/08/17 at 20:59; Status DC Dextrose (Dextrose 50%-Water Syringe) 25 gm STK-MED ONCE IV ; Start 09/08/17 at 07:01; Stop 09/08/17 at 07:02; Status DC Sodium Chloride 1,000 ml @ 1,000 mls/hr Q1H PRN IV hypotension; Start at 10:16; Stop 09/08/17 at 16:15; Status DC Albumin Human 200 ml @ 200 mls/hr 1X PRN PRN IV Hypotension; Start 09/08/17 at 10:30; Stop 09/08/17 at 16:29; Status DC Acetaminophen (Tylenol) 500 mg 1X PRN PRN PO MILD PAIN / TEMP Last administered on 09/08/17 23:09; Start 09/08/17 at 10:30; Stop 09/09/17 at 10 :29; Status DC Diphenhydramine HCl (Benadryl) 25 mg 1X PRN PRN IV ITCHING Last administered on 09/08/17t 23:10; Start 09/08/17 at 10:30; Stop 09/09/17 at 10:29; Status DC Diphenhydramine HCl (Benadryl) 25 mg 1X PRN PRN IV ITCHING; Start 09/08/17 at 10:30; Stop 09/09/17 at 10:29; Status DC Labetalol HCl (Normodyne) 10 mg PRN Q1HR PRN IVP SBP > 180; Start 09/08/17 at 10:30; Stop 09/09/17 at 10:29; Status DC Clonidine HCl (Catapres) 0.1 mg 1X PRN PRN PO SBP > 180; Start 09/08/17 at 10: 30; Stop 09/09/17 at 10:29; Status DC Sodium Chloride 1,000 ml @ 400 mls/hr Q2H30M PRN IV PATENCY; Start 09/08/17 at 10:16; Stop 09/08/17 at 22:15; Status DC Info (PHARMACY MONITORING -- do not chart) 1 each PRN DAILY PRN MC SEE COMMENTS ; Start 09/08/17 at 10:30 Insulin Aspart (NovoLOG) 0-5 UNITS TIDWMEALS SQ ; Start 09/08/17 at 12:00 Dextrose (Dextrose 50%-Water Syringe) 12.5 gm PRN Q15MIN PRN IV SEE COMMENTS; Start 09/08/17 at 10:45 Albuterol Sulfate (Ventolin Neb Soln) 2.5 mg RTQID NEB Last administered on 11:50; Start 09/08/17 at 12:00 Atorvastatin Calcium (Lipitor) 10 mg QHS PO Last administered on 09/08/17 20: 53; Start 09/08/17 at 21:00 Citalopram Hydrobromide (CeleXA) 20 mg DAILY PO Last administered on 11:18; Start 09/08/17 at 11:00 Levothyroxine Sodium (Synthroid) 150 mcg DAILYAC PO Last administered on 11:18; Start 09/08/17 at 11:00 Prasugrel (Effient) 10 mg DAILY PO Last administered on 09/09/17 11:17; Start 09/08/17 at 11:00 Sodium Bicarbonate (Sodium Bicarbonate) 650 mg BID PO Last administered on 11:18; Start 09/08/17 at 14:00 Regadenoson (Lexiscan) 0.4 mg 1X ONCE IV Last administered on 09/09/17 09:00 ; Start 09/09/17 at 09:00; Stop 09/09/17 at 09:01; Status DC Active Scripts Active Breo Ellipta 200-25 Mcg INH (Fluticasone/Vilanterol) 1 Each Blst.w.dev 1 Puff IH DAILY 30 Days Culturelle (Lactobacillus Rhamnosus Gg) 1 Each Cap.sprink 1 Cap PO BID 30 Days Lisinopril 20 Mg Tablet 20 Mg PO DAILY 30 Days Carvedilol 6.25 Mg Tablet 6.25 Mg PO BIDWMEALS Atorvastatin Calcium 10 Mg Tablet 10 Mg PO QHS Albuterol Sulfate Neb Soln (Albuterol Sulfate) 2.5 Mg/3 Ml Vial.neb 2.5 Mg NEB RTQID Reported Levothyroxine Sodium 150 Mcg Tablet 150 Mcg PO DAILYAC Lantus Solostar (Insulin Glargine,Hum.rec.anlog) 100 Unit/1 Ml Insuln.pen 3 Unit SQ HS Effient (Prasugrel Hcl) 10 Mg Tablet 10 Mg PO DAILY Sodium Bicarbonate 325 Mg Tablet 10 Gr PO BID Aspirin 81 Mg Tab.chew 1 Tab PO DAILY Novolog Flexpen (Insulin Aspart) 100 Unit/1 Ml Insuln.pen 5 Unit SQ TIDWMEALS Celexa (Citalopram Hydrobromide) 20 Mg Tablet 20 Mg PO DAILY Vitamin D2 (Ergocalciferol (Vitamin D2)) 50,000 Unit Capsule 50,000 Unit PO WEEKLY every sunday Vitals/I & O Vital Sign - Last 24 Hours 09/08/17 09/08/17 09/08/17 09/08/17 19:10 19:23 20:00 23:40 Temp 98.9 99.2 98.9 99.2 Pulse 92 94 Resp 18 18 B/P (MAP) 155/46 (82) 135/54 (81) Pulse Ox 95 98 92 O2 Delivery Nasal Cannula Nasal Cannula Nasal Cannula Nasal Cannula O2 Flow Rate 2.0 2.0 2.0 3.0 09/09/17 09/09/17 09/09/17 09/09/17 03:00 07:00 07:51 08:00 Temp 98.2 98.1 98.2 98.1 Pulse 76 75 Resp 22 20 B/P (MAP) 129/42 (71) 133/41 (71) Pulse Ox 95 94 O2 Delivery Nasal Cannula Nasal Cannula Nasal Cannula Nasal Cannula O2 Flow Rate 3.0 2.0 3.0 2.0 09/09/17 09/09/17 11:00 11:52 Temp 98.1 98.1 Pulse 86 Resp 20 B/P (MAP) 139/50 (79) Pulse Ox 93 O2 Delivery Nasal Cannula Nasal Cannula O2 Flow Rate 2.0 3.0 Intake and Output 09/08/17 09/08/17 09/09/17 15:00 23:00 07:00 Intake Total 1450 ml 200 ml Output Total 250 ml 100 ml 0 ml Balance -250 ml 1350 ml 200 ml MAHAMED ABREU MD Sep 09, 2017 14:04
[2017-09-09 15:00] VITALS: BP 164/65
--- NOTE | 2017-09-09 18:22 | PDOC3 ---
*Discharge Summary* Date of Admission: Sep 07, 2017 Date of Discharge: Sep 09, 2017 Admitting Diagnosis Problems Medical Problems: (1) Chest pain Status: Acute (2) Tachycardia Status: Acute Problems: Final Diagnosis Chest pain- occurring with HD. Stress test moderate risk, Cardiology does not feel that there is any acute disease going on that needs to be managed other than medical management, ESRD, Chronic respiratory failure 2/2 systolic CHF and severe pulmonary HTN, HTN, DM2, Asthma, Hypothyroidism, HLD, Depression, Abnormal CT chest with moderate mediastinal LA CONSULTS Cardiology Procedures CXR- persistent cardiomegaly, pulmonary venous congestion and small bilateral pleural effusions, mild bibasilar atelectasis CT Angio- no evidence of pulmonary embolism, small pleural effusion bilaterally , moderate mediastinal lymphadenopathy (could be idiopathic such as sarcoidosis but could be neoplastic such as lymphoma) Cardiac Stress test- No EKG evidence of stressed induced ischemia, Nuclear imaging shows an infarct in the inferior lateral and apical region with some chato-infarct ischemia, Globally decreased LV systolic function with ejection fraction of 34%, Moderate risk Lexiscan nuclear stress test. Brief Hospital Course Pt is a 67yo CF admitted for chest pain 1)Chest pain- occurring with HD. There was slight increase in trend of troponins on admission. Stress test showed moderate risk. Cardiology planning on medical management and okay with discharge today. CP improved with decreasing the rate of her HD. 2)ESRD- Nephrology following. Received HD yesterday and then will be back on / / scheduling. Electrolytes stable. Cr currently 2.7. Pt continued on NaHCO3 3)Chronic respiratory failure- 2/2 CHF and pulmonary HTN. Currently stable. 4)Severe pulmonary HTN 5)CHF- systolic, compensated. Pt normally on Lasix. Held during admission 6)HTN- pt normally on multiple medications including Lasix, Norvasc, Hydralazine , Lisinopril, Carvedilol, Spironolactone and Imdur. Holding as pt's BP has been stable without them. CTM 7)DM2- pt with low blood sugar morning after admission without insulin administration and at goal this morning. Home insulin has been held. SSI available but no doses given. 8)Asthma- currently well controlled. Albuterol breathing treatments available. Breo held 9)Hypothyroidism- last TSH mildly elevated. Pt continued on Levothyroxine 150mcg, repeat TSH this admission was normal 10)HLD- pt continued on Atorvastatin 11)Depression- pt continued on Citalopram 20mg 12)Abnormal CT Chest- with moderate mediastinal LA. DDx including sarcoidosis vs lymphoma. Pt will need f/u outpatient Disposition/Orders: D/C to Home CONDITION AT DISCHARGE: Improved, Stable Diet: Renal, Consistent Carbohydrate Home Meds Active Scripts Fluticasone/Vilanterol (Breo Ellipta 200-25 Mcg INH) 1 Each Blst.w.dev, 1 PUFF IH DAILY for 30 Days, #1 INHALER 6 Refills Prov:Tristan PENG MD 08/30/17 Lactobacillus Rhamnosus Gg (CULTURELLE) 1 Each Cap.sprink, 1 CAP PO BID for 30 Days, #60 CAP Prov:Tristan PENG MD 08/30/17 Lisinopril (LISINOPRIL) 20 Mg Tablet, 20 MG PO DAILY for 30 Days, #30 TAB 6 Refills Prov:Tristan PENG MD 08/30/17 Carvedilol (CARVEDILOL) 6.25 Mg Tablet, 6.25 MG PO BIDWMEALS, #60 MG Prov:Tristan PENG MD 09/05/16 Atorvastatin Calcium (ATORVASTATIN CALCIUM) 10 Mg Tablet, 10 MG PO QHS, #30 MG 11 Refills Prov:Tristan PENG MD 09/05/16 Albuterol Sulfate (ALBUTEROL SULFATE NEB SOLN) 2.5 Mg/3 Ml Vial.neb, 2.5 MG NEB RTQID, #120 Prov:Tristan PENG MD 08/26/15 Reported Medications Levothyroxine Sodium (LEVOTHYROXINE SODIUM) 150 Mcg Tablet, 150 MCG PO DAILYAC for THYROID SUPPLEMENT, #30 TAB 0 Refills 08/21/17 Insulin Glargine,Hum.rec.anlog (LANTUS SOLOSTAR) 100 Unit/1 Ml Insuln.pen, 3 UNIT SQ HS, SYR 08/21/17 Prasugrel Hcl (EFFIENT) 10 Mg Tablet, 10 MG PO DAILY, TAB 08/21/17 Sodium Bicarbonate (SODIUM BICARBONATE) 325 Mg Tablet, 10 GR PO BID 12/28/16 Aspirin (ASPIRIN) 81 Mg Tab.chew, 1 TAB PO DAILY, #90 TAB 3 Refills 12/28/16 Insulin Aspart (NOVOLOG FLEXPEN) 100 Unit/1 Ml Insuln.pen, 5 UNIT SQ TIDWMEALS for dm, SYR 08/21/15 Citalopram Hydrobromide (CELEXA) 20 Mg Tablet, 20 MG PO DAILY for depression, TAB 05/20/14 Ergocalciferol (Vitamin D2) (VITAMIN D2) 50,000 Unit Capsule, 16856 UNIT PO WEEKLY for supplement every sunday05/20/14 Scheduled Albuterol Sulfate (Albuterol Sulfate Neb Soln), 2.5 MG NEB RTQID Aspirin (Aspirin), 1 TAB PO DAILY, (Reported) Atorvastatin Calcium (Atorvastatin Calcium), 10 MG PO QHS Carvedilol (Carvedilol), 6.25 MG PO BIDWMEALS Citalopram Hydrobromide (Celexa), 20 MG PO DAILY, (Reported) Ergocalciferol (Vitamin D2) (Vitamin D2), 50,000 UNIT PO WEEKLY, (Reported) Fluticasone/Vilanterol (Breo Ellipta 200-25 Mcg INH), 1 PUFF IH DAILY Insulin Aspart (Novolog Flexpen), 5 UNIT SQ TIDWMEALS, (Reported) Insulin Glargine,Hum.rec.anlog (Lantus Solostar), 3 UNIT SQ HS, (Reported) Lactobacillus Rhamnosus Gg (Culturelle), 1 CAP PO BID Levothyroxine Sodium (Levothyroxine Sodium), 150 MCG PO DAILYAC, (Reported) Lisinopril (Lisinopril), 20 MG PO DAILY Prasugrel Hcl (Effient), 10 MG PO DAILY, (Reported) Sodium Bicarbonate (Sodium Bicarbonate), 10 GR PO BID, (Reported) PCP F/u with Dr. Peng within 7-10 days of discharge Time Spent Total time spent with patient [] minutes for coordination of care, counseling, and education. NELI AMOR MD Sep 09, 2017 18:22
== END 2017-09-09 19:49 | disposition home or self-care (01) | DRG 280 ==
LOC: ER 17:18 → 2 NORTH 20:45
PROVIDERS: ADMIT Family Medicine; ATTEND Family Medicine
PROC: 5A1D70Z Performance of Urinary Filtration, Intermittent, Less than 6 Hours Per Day (ICD-10-PCS; principal; 2017-09-08)
DX: I21.4 Non-ST elevation (NSTEMI) myocardial infarction (principal); N18.6 End stage renal disease; J96.10 Chronic respiratory failure, unspecified whether with hypoxia or hypercapnia; E11.22 Type 2 diabetes mellitus with diabetic chronic kidney disease; I13.2 Hypertensive heart and chronic kidney disease with heart failure and with stage 5 chronic kidney disease, or end stage renal disease; I50.23 Acute on chronic systolic (congestive) heart failure; I27.20 Pulmonary hypertension, unspecified; E11.649 Type 2 diabetes mellitus with hypoglycemia without coma; N25.81 Secondary hyperparathyroidism of renal origin; E03.9 Hypothyroidism, unspecified; E78.5 Hyperlipidemia, unspecified; F32.9 Major depressive disorder, single episode, unspecified; F17.210 Nicotine dependence, cigarettes, uncomplicated; F41.9 Anxiety disorder, unspecified; I25.10 Atherosclerotic heart disease of native coronary artery without angina pectoris; K21.9 Gastro-esophageal reflux disease without esophagitis; J44.9 Chronic obstructive pulmonary disease, unspecified; D63.1 Anemia in chronic kidney disease; M19.90 Unspecified osteoarthritis, unspecified site; I25.5 Ischemic cardiomyopathy; Z95.820 Peripheral vascular angioplasty status with implants and grafts; I25.2 Old myocardial infarction; Z95.1 Presence of aortocoronary bypass graft; Z95.5 Presence of coronary angioplasty implant and graft; Z79.4 Long term (current) use of insulin; Z82.49 Family history of ischemic heart disease and other diseases of the circulatory system; Z83.3 Family history of diabetes mellitus; Z82.5 Family history of asthma and other chronic lower respiratory diseases; Z91.14 Patient's other noncompliance with medication regimen; Z99.81 Dependence on supplemental oxygen; Z89.512 Acquired absence of left leg below knee; Z99.2 Dependence on renal dialysis; Z95.810 Presence of automatic (implantable) cardiac defibrillator; Z90.49 Acquired absence of other specified parts of digestive tract; Z89.421 Acquired absence of other right toe(s)
CPT/HCPCS: 36415; 71010; 71275; 78452; 80048; 80053; 82962; 84443; 84484; 85007; 85025; 93005; 93017; 94640; 94760; 96374; 96375; A9500; J1200; J1815; J2785; J7042; J7613; Q9967; 99285-25

== ENCOUNTER 2017-10-29 16:36 | Inpatient (IN) | payer BC, MEDICAID ==
[2017-10-29] MEDS: IPRATRPIUM/ALBUTEROL 0.5/2.5MG 3 ML NEBU. NEB ×6 (17:37→17:45)
[2017-10-29] MEDS: methylPREDNISolone SOD SUCC PF 125 MG/2 ML VIAL. IV ×2 (17:47)
[2017-10-29 17:55] LABS: INFLUENZA A PATIENT NEGATIVE (NEGATIVE); INFLUENZA B PATIENT NEGATIVE (NEGATIVE); OBC FLU VALID
[2017-10-29 18:53] LABS: BASO % 0 % (0-3); EOS # 0.1 x10^3/uL (0.0-0.7); EOS % 1 % (0-3); HEMATOCRIT 33.2 % (36.0-47.0); HEMOGLOBIN 10.2 g/dL (12.0-15.5); LYMPH # 1.4 x10^3/uL (1.0-4.8); LYMPH % 8 % (24-48); MEAN CORPUSCULAR HEMOGLOBIN 30 pg (25-35); MEAN CORPUSCULAR HGB CONC 31 g/dL (31-37); MEAN CORPUSCULAR VOLUME 96 fL (79-100); MONO # 0.7 x10^3/uL (0.0-1.1); MONO % 5 % (0-9); NEUT # 14.2 x10^3uL (1.8-7.7); NEUT % 86 % (31-73); PLATELET COUNT 175 x10^3/uL (140-400); RED BLOOD COUNT 3.44 x10^6/uL (3.50-5.40); RED CELL DISTRIBUTION WIDTH 16.8 % (11.5-14.5); WHITE BLOOD COUNT 16.5 x10^3/uL (4.0-11.0)
[2017-10-29 18:56] LABS: ADD MAN DIFF? YES
[2017-10-29 19:06] LABS: ANION GAP 9 (6-14); BLOOD UREA NITROGEN 27 mg/dL (7-20); BUN/CREATININE RATIO 11 (6-20); CALCIUM 8.3 mg/dL (8.5-10.1); CARBON DIOXIDE 24 mmol/L (21-32); CHLORIDE 105 mmol/L (98-107); CREATININE 2.4 mg/dL (0.6-1.0); GFR 20.3; GLUCOSE 181 mg/dL (70-99); POTASSIUM 4.7 mmol/L (3.5-5.1); SODIUM 138 mmol/L (136-145)
[2017-10-29 19:14] LABS: TROPONINI 0.027 ng/mL (0.000-0.055)
[2017-10-29 19:17] LABS: LACTIC ACID 1.3 mmol/L (0.4-2.0)
[2017-10-29 19:22] LABS: % BANDS 5 % (0-9); % EOS 2 % (0-5); % LYMPHS 12 % (24-48); % METAS 1 % (0-0); % MONOS 1 % (0-10); % SEGS 79 % (35-66); ANISOCYTOSIS SLIGHT; PLT ESTIMATE ADEQUATE (ADEQUATE)
[2017-10-29 19:23] LABS: ALBUMIN 2.7 g/dL (3.4-5.0); ALBUMIN/GLOBULIN RATIO 0.7 (1.0-1.7); ALK PHOS 109 U/L (46-116); ALT (SGPT) 7 U/L (14-59); AST (SGOT) 16 U/L (15-37); HYPOCHROMIA SLIGHT; POLYCHROMASIA SLIGHT; TOTAL BILIRUBIN 0.4 mg/dL (0.2-1.0); TOTAL PROTEIN 6.7 g/dL (6.4-8.2)
[2017-10-29] MEDS: PIPERACILLIN/TAZOBACTAM 2.25 GM in IV NORMAL SALINE 50ML 50 ML IV (20:10)
[2017-10-29] MEDS ORDERED: PIP/TAZO PER PHARMACY MC ×2 (20:15)
[2017-10-29] MEDS: VANCOMYCIN PER PHARMACY MC ×2 (20:37)
[2017-10-29] MEDS: VANCOMYCIN 2 GM in IV DEXTROSE 5 %-0.45 % NACL 500 ML IV (20:49)
[2017-10-29] MEDS ORDERED: fentaNYL PF VIAL 100 MCG/2 ML VIAL IV ×2 (23:15)
[2017-10-29] MEDS ORDERED: ONDANSETRON PF 4 MG/2 ML VIAL. IV ×2 (23:15)
[2017-10-30] MEDS: ATORVASTATIN CALCIUM 10 MG TABLET. PO ×4 (01:06→21:24)
[2017-10-30] MEDS: INSULIN DETEMIR 300 UNITS/3 ML INSULN.PEN. SQ ×4 (01:10→21:41)
[2017-10-30 05:39] LABS: ADD MAN DIFF? NO
[2017-10-30 05:45] LABS: BASO % 0 % (0-3); EOS % 0 % (0-3); HEMATOCRIT 33.1 % (36.0-47.0); HEMOGLOBIN 10.2 g/dL (12.0-15.5); LYMPH # 0.4 x10^3/uL (1.0-4.8); LYMPH % 3 % (24-48); MEAN CORPUSCULAR HEMOGLOBIN 30 pg (25-35); MEAN CORPUSCULAR HGB CONC 31 g/dL (31-37); MEAN CORPUSCULAR VOLUME 97 fL (79-100); MONO # 0.1 x10^3/uL (0.0-1.1); MONO % 1 % (0-9); NEUT # 11.4 x10^3uL (1.8-7.7); NEUT % 96 % (31-73); PLATELET COUNT 159 x10^3/uL (140-400); RED BLOOD COUNT 3.42 x10^6/uL (3.50-5.40); WHITE BLOOD COUNT 11.9 x10^3/uL (4.0-11.0)
[2017-10-30] MEDS: PIPERACILLIN/TAZOBACTAM 2.25 GM in IV NORMAL SALINE 50ML 50 ML IV ×3 (06:08→21:26)
[2017-10-30 06:10] LABS: ALBUMIN 2.6 g/dL (3.4-5.0); ALBUMIN/GLOBULIN RATIO 0.6 (1.0-1.7); ALK PHOS 92 U/L (46-116); ANION GAP 8 (6-14); AST (SGOT) 12 U/L (15-37); BLOOD UREA NITROGEN 30 mg/dL (7-20); BUN/CREATININE RATIO 10 (6-20); CALCIUM 8.2 mg/dL (8.5-10.1); CARBON DIOXIDE 23 mmol/L (21-32); CHLORIDE 102 mmol/L (98-107); CREATININE 2.9 mg/dL (0.6-1.0); GFR 16.3; GLUCOSE 360 mg/dL (70-99); SODIUM 133 mmol/L (136-145); TOTAL BILIRUBIN 0.2 mg/dL (0.2-1.0); TOTAL PROTEIN 7.2 g/dL (6.4-8.2)
[2017-10-30 06:16] LABS: ALT (SGPT) < 6 U/L (14-59)
[2017-10-30 06:18] LABS: POTASSIUM 6.1 mmol/L (3.5-5.1)
[2017-10-30 07:28] LABS: POC GLUCOSE 279 mg/dL (70-99)
[2017-10-30] MEDS: LEVOTHYROXINE 150 MCG TABLET PO ×2 (07:41)
[2017-10-30] MEDS: BUDESONIDE 0.5 MG/2 ML NEBU. NEB ×4 (07:50→19:19)
[2017-10-30] MEDS: IPRATRPIUM/ALBUTEROL 0.5/2.5MG 3 ML NEBU. NEB ×8 (07:50→19:19)
[2017-10-30] MEDS: LISINOPRIL 20 MG TABLET PO ×2 (08:25)
[2017-10-30] MEDS: CARVEDILOL 6.25 MG TABLET. PO ×2 (08:25)
[2017-10-30] MEDS: CITALOPRAM 20 MG TABLET. PO ×2 (08:25)
[2017-10-30] MEDS: INSULIN ASPART 300 UNITS/3 ML INSULN.PEN SQ ×6 (08:30→17:13)
[2017-10-30] MEDS ORDERED: NON FORMULARY ITEM (Fluticasone/Vilanterol (Breo Ellipta 200-25 Mcg INH) 1 PUFF) IH ×2 (09:00)
[2017-10-30] MEDS ORDERED: MAGNESIUM SULFATE 2GM 50 ML IV ×2 (09:30)
[2017-10-30] MEDS: SODIUM BICARBONATE 650 MG TABLET. PO ×4 (11:50→17:11)
[2017-10-30] MEDS: ASPIRIN CHEWABLE 81 MG TABLET. PO ×2 (11:50)
[2017-10-30] MEDS: PRASUGREL 10 MG TABLET. PO ×2 (11:50)
[2017-10-30] MEDS: LACTOBACILLUS RHAMNOSUS GG 1 CAPSULE. PO ×4 (11:50→21:24)
[2017-10-30 13:16] LABS: POC GLUCOSE 162 mg/dL (70-99)
[2017-10-30] MEDS ORDERED: IV NORMAL SALINE 1000ML BAG 1,000 ML IV ×2 (13:22)
[2017-10-30] MEDS ORDERED: DIALYSIS PATIENT. MC ×4 (13:30)
[2017-10-30] MEDS ORDERED: 0.9 % SODIUM CHLORIDE 10 ML DISP.SYRIN. IV ×4 (13:30)
[2017-10-30] MEDS: CARVEDILOL 12.5 MG TABLET. PO ×2 (17:12)
[2017-10-30 20:32] LABS: POC GLUCOSE 181 mg/dL (70-99)
[2017-10-30] MEDS: DARBEPOETIN ALFA 60 MCG/0.3 ML DISP.SYRIN. SQ ×2 (21:24)
[2017-10-31] MEDS: VANCOMYCIN RANDOM LEVEL. MC ×2 (05:00)
[2017-10-31] MEDS: PIPERACILLIN/TAZOBACTAM 2.25 GM in IV NORMAL SALINE 50ML 50 ML IV ×3 (05:56→23:59)
[2017-10-31] MEDS: LEVOTHYROXINE 150 MCG TABLET PO ×2 (05:57)
[2017-10-31 06:14] LABS: ALBUMIN 2.5 g/dL (3.4-5.0); ANION GAP 8 (6-14); BLOOD UREA NITROGEN 30 mg/dL (7-20); CALCIUM 8.4 mg/dL (8.5-10.1); CARBON DIOXIDE 30 mmol/L (21-32); CHLORIDE 103 mmol/L (98-107); CREATININE 2.6 mg/dL (0.6-1.0); GFR 18.5; GLUCOSE 110 mg/dL (70-99); MAGNESIUM 1.9 mg/dL (1.8-2.4); PHOSPHORUS 3.1 mg/dL (2.6-4.7); POTASSIUM 4.1 mmol/L (3.5-5.1); SODIUM 141 mmol/L (136-145)
[2017-10-31] MEDS: IPRATRPIUM/ALBUTEROL 0.5/2.5MG 3 ML NEBU. NEB ×2 (07:41)
[2017-10-31] MEDS: BUDESONIDE 0.5 MG/2 ML NEBU. NEB ×4 (07:41→19:21)
[2017-10-31] MEDS: ALBUTEROL SULFATE 2.5 MG/3 ML NEBU. NEB ×8 (08:00→19:22)
[2017-10-31] MEDS: CARVEDILOL 12.5 MG TABLET. PO ×2 (08:00)
[2017-10-31 08:09] LABS: POC GLUCOSE 81 mg/dL (70-99)
[2017-10-31] MEDS: LISINOPRIL 20 MG TABLET PO ×2 (09:00)
[2017-10-31] MEDS: LACTOBACILLUS RHAMNOSUS GG 1 CAPSULE. PO ×4 (09:41→21:08)
[2017-10-31] MEDS: INSULIN ASPART 300 UNITS/3 ML INSULN.PEN SQ ×6 (09:41→16:59)
[2017-10-31] MEDS: SODIUM BICARBONATE 650 MG TABLET. PO ×4 (09:42→18:15)
[2017-10-31] MEDS ORDERED: IV NORMAL SALINE 1000ML BAG 1,000 ML IV ×4 (10:11)
[2017-10-31] MEDS ORDERED: DIALYSIS PATIENT. MC ×2 (10:15)
[2017-10-31] MEDS ORDERED: 0.9 % SODIUM CHLORIDE 10 ML DISP.SYRIN. IV ×4 (10:15)
[2017-10-31] MEDS ORDERED: diphenhydrAMINE 50 MG/ML VIAL IV ×2 (10:15)
[2017-10-31] MEDS: diphenhydrAMINE 50 MG/ML VIAL IV ×2 (11:04)
[2017-10-31] MEDS: ACETAMINOPHEN 500 MG TABLET PO ×2 (11:16)
[2017-10-31] MEDS: VANCOMYCIN PER PHARMACY MC ×2 (11:54)
[2017-10-31] MEDS: ASPIRIN CHEWABLE 81 MG TABLET. PO ×2 (16:03)
[2017-10-31] MEDS: CITALOPRAM 20 MG TABLET. PO ×2 (16:03)
[2017-10-31] MEDS: PRASUGREL 10 MG TABLET. PO ×2 (16:03)
[2017-10-31 17:10] LABS: POC GLUCOSE 76 mg/dL (70-99)
[2017-10-31] MEDS: diphenhydrAMINE HCL 25 MG CAPSULE PO ×2 (18:15)
[2017-10-31] MEDS: CARVEDILOL 6.25 MG TABLET. PO ×2 (18:16)
[2017-10-31] MEDS: INSULIN DETEMIR 300 UNITS/3 ML INSULN.PEN. SQ ×2 (21:00)
[2017-10-31] MEDS: VANCOMYCIN 500 MG in IV DEXTROSE 5% 100 ML IV (21:08)
[2017-10-31] MEDS: ATORVASTATIN CALCIUM 10 MG TABLET. PO ×2 (21:09)
[2017-11-01 01:35] LABS: POC GLUCOSE 88 mg/dL (70-99)
[2017-11-01] MEDS: PIPERACILLIN/TAZOBACTAM 2.25 GM in IV NORMAL SALINE 50ML 50 ML IV (06:13)
[2017-11-01] MEDS: LEVOTHYROXINE 150 MCG TABLET PO ×2 (06:14)
[2017-11-01 06:46] LABS: ALBUMIN 2.6 g/dL (3.4-5.0); ANION GAP 8 (6-14); BLOOD UREA NITROGEN 24 mg/dL (7-20); CALCIUM 8.3 mg/dL (8.5-10.1); CARBON DIOXIDE 29 mmol/L (21-32); CHLORIDE 102 mmol/L (98-107); CREATININE 2.7 mg/dL (0.6-1.0); GFR 17.7; GLUCOSE 118 mg/dL (70-99); MAGNESIUM 1.8 mg/dL (1.8-2.4); PHOSPHORUS 3.7 mg/dL (2.6-4.7); POTASSIUM 4.4 mmol/L (3.5-5.1); SODIUM 139 mmol/L (136-145)
[2017-11-01] MEDS: ALBUTEROL SULFATE 2.5 MG/3 ML NEBU. NEB ×8 (07:03→19:32)
[2017-11-01] MEDS: BUDESONIDE 0.5 MG/2 ML NEBU. NEB ×4 (07:03→19:32)
[2017-11-01 07:50] LABS: POC GLUCOSE 122 mg/dL (70-99)
[2017-11-01] MEDS: SODIUM BICARBONATE 650 MG TABLET. PO ×2 (09:01)
[2017-11-01] MEDS: PRASUGREL 10 MG TABLET. PO ×2 (09:01)
[2017-11-01] MEDS: ASPIRIN CHEWABLE 81 MG TABLET. PO ×2 (09:02)
[2017-11-01] MEDS: LACTOBACILLUS RHAMNOSUS GG 1 CAPSULE. PO ×4 (09:02→21:26)
[2017-11-01] MEDS: CITALOPRAM 20 MG TABLET. PO ×2 (09:02)
[2017-11-01] MEDS: CARVEDILOL 6.25 MG TABLET. PO ×4 (09:02→17:39)
[2017-11-01] MEDS: LISINOPRIL 10 MG TABLET PO ×2 (09:03)
[2017-11-01] MEDS: INSULIN ASPART 300 UNITS/3 ML INSULN.PEN SQ ×6 (09:15→17:31)
[2017-11-01] MEDS: LINEZOLID 600 MG TABLET PO ×4 (11:06→21:26)
[2017-11-01] MEDS: AMOXICILLIN/K CLAV 500/125MG TABLET. PO ×2 (11:06)
[2017-11-01] MEDS: FUROSEMIDE 40 MG/4 ML VIAL. IVP ×4 (11:07→14:42)
[2017-11-01 11:44] LABS: POC GLUCOSE 109 mg/dL (70-99)
[2017-11-01 16:37] LABS: POC GLUCOSE 91 mg/dL (70-99)
[2017-11-01] MEDS: INSULIN DETEMIR 300 UNITS/3 ML INSULN.PEN. SQ ×2 (21:00)
[2017-11-01] MEDS: ATORVASTATIN CALCIUM 10 MG TABLET. PO ×2 (21:26)
[2017-11-01 21:33] LABS: POC GLUCOSE 148 mg/dL (70-99)
[2017-11-01 21:47] LABS: POC GLUCOSE 196 mg/dL (70-99)
[2017-11-02 06:30] LABS: MAGNESIUM 1.9 mg/dL (1.8-2.4)
[2017-11-02 06:34] LABS: ALBUMIN 2.7 g/dL (3.4-5.0); ANION GAP 9 (6-14); BLOOD UREA NITROGEN 29 mg/dL (7-20); CALCIUM 8.5 mg/dL (8.5-10.1); CARBON DIOXIDE 29 mmol/L (21-32); CHLORIDE 100 mmol/L (98-107); CREATININE 3.7 mg/dL (0.6-1.0); GFR 12.3; GLUCOSE 119 mg/dL (70-99); PHOSPHORUS 4.8 mg/dL (2.6-4.7); POTASSIUM 4.4 mmol/L (3.5-5.1); SODIUM 138 mmol/L (136-145)
[2017-11-02] MEDS: INSULIN ASPART 300 UNITS/3 ML INSULN.PEN SQ ×6 (07:29→17:00)
[2017-11-02] MEDS: ALBUTEROL SULFATE 2.5 MG/3 ML NEBU. NEB ×8 (07:39→20:03)
[2017-11-02] MEDS: BUDESONIDE 0.5 MG/2 ML NEBU. NEB ×4 (07:39→20:03)
[2017-11-02 07:49] LABS: POC GLUCOSE 118 mg/dL (70-99)
[2017-11-02] MEDS: LEVOTHYROXINE 150 MCG TABLET PO ×2 (08:20)
[2017-11-02] MEDS: CARVEDILOL 6.25 MG TABLET. PO ×4 (08:20→20:14)
[2017-11-02] MEDS: LISINOPRIL 10 MG TABLET PO ×2 (08:21)
[2017-11-02] MEDS: LINEZOLID 600 MG TABLET PO ×4 (09:00→20:15)
[2017-11-02] MEDS: CITALOPRAM 20 MG TABLET. PO ×2 (09:00)
[2017-11-02] MEDS: LACTOBACILLUS RHAMNOSUS GG 1 CAPSULE. PO ×4 (09:00→20:14)
[2017-11-02] MEDS: ASPIRIN CHEWABLE 81 MG TABLET. PO ×2 (09:00)
[2017-11-02] MEDS: FUROSEMIDE 40 MG/4 ML VIAL. IVP ×4 (09:00→14:00)
[2017-11-02 11:50] LABS: POC GLUCOSE 103 mg/dL (70-99)
[2017-11-02] MEDS ORDERED: IODIXANOL 320 MG/ML 100 ML VIAL. ×2 (11:58)
[2017-11-02] MEDS ORDERED: LIDOCAINE 2% 20 ML VIAL. ×2 (11:59)
[2017-11-02] MEDS ORDERED: fentaNYL PF VIAL 100 MCG/2 ML VIAL ×2 (11:59)
[2017-11-02] MEDS ORDERED: MIDAZOLAM HCL/PF 2 MG/2 ML VIAL. ×2 (11:59)
[2017-11-02] MEDS ORDERED: IV NORMAL SALINE 1000ML BAG 1,000 ML IV ×4 (12:15)
[2017-11-02] MEDS ORDERED: 0.9 % SODIUM CHLORIDE 10 ML DISP.SYRIN. IV ×4 (12:15)
[2017-11-02] MEDS ORDERED: DIALYSIS PATIENT. MC ×4 (12:15)
[2017-11-02] MEDS: MIDAZOLAM HCL/PF 2 MG/2 ML VIAL. IV ×2 (12:45)
[2017-11-02] MEDS: IODIXANOL 320 MG/ML 100 ML VIAL. IART ×2 (12:45)
[2017-11-02] MEDS: fentaNYL PF VIAL 100 MCG/2 ML VIAL IV ×2 (12:45)
[2017-11-02] MEDS: LIDOCAINE 2% 20 ML VIAL. IJ ×2 (12:45)
[2017-11-02] MEDS ORDERED: CONTRAST GIVEN MC ×2 (13:00)
[2017-11-02 15:55] LABS: BASE EXCESS ABG 0 mmol/L (-3-3); HCO3 ABG 28 mmol/L (21-28); PH ABG 7.25 (7.35-7.45); PO2 ABG 51 mmHg (65-108); SAT O2 ABG 82 % (92-99)
[2017-11-02 15:58] LABS: FIO2 ABG 40; PCO2 ABG 65 mmHg (35-46)
[2017-11-02] MEDS: methylPREDNISolone SOD SUCC PF 125 MG/2 ML VIAL. IV ×2 (16:18)
[2017-11-02] MEDS ORDERED: ONDANSETRON PF 4 MG/2 ML VIAL. ×2 (16:27)
[2017-11-02] MEDS: ONDANSETRON PF 4 MG/2 ML VIAL. IV ×2 (16:31)
[2017-11-02] MEDS ORDERED: PROMETHAZINE 25 MG SUPP.RECT. PR ×2 (18:45)
[2017-11-02] MEDS ORDERED: ONDANSETRON PF 4 MG/2 ML VIAL. IV ×2 (18:45)
[2017-11-02 18:52] LABS: BASE EXCESS ABG -4 mmol/L (-3-3); HCO3 ABG 25 mmol/L (21-28); PH ABG 7.23 (7.35-7.45); SAT O2 ABG 79 % (92-99)
[2017-11-02 18:53] LABS: FIO2 ABG 30; PCO2 ABG 60 mmHg (35-46); PO2 ABG 48 mmHg (65-108)
[2017-11-02] MEDS ORDERED: PROMETHAZINE 25 MG in IV DEXTROSE 5% 50 ML IV (19:00)
[2017-11-02] MEDS: AMOXICILLIN/K CLAV 500/125MG TABLET. PO ×2 (20:14)
[2017-11-02] MEDS: PRASUGREL 10 MG TABLET. PO ×2 (20:14)
[2017-11-02] MEDS: ATORVASTATIN CALCIUM 10 MG TABLET. PO ×2 (20:15)
[2017-11-02] MEDS: INSULIN DETEMIR 300 UNITS/3 ML INSULN.PEN. SQ ×2 (21:37)
[2017-11-02 21:48] LABS: POC GLUCOSE 197 mg/dL (70-99)
[2017-11-02 22:05] LABS: TROPONINI < 0.017 ng/mL (0.000-0.055)
[2017-11-03] MEDS: LEVOTHYROXINE 150 MCG TABLET PO ×2 (06:02)
[2017-11-03] MEDS: methylPREDNISolone SOD SUCC PF 125 MG/2 ML VIAL. IV ×10 (06:13→23:03)
[2017-11-03 06:20] LABS: ALBUMIN 2.7 g/dL (3.4-5.0); ANION GAP 9 (6-14); BLOOD UREA NITROGEN 20 mg/dL (7-20); CALCIUM 8.2 mg/dL (8.5-10.1); CARBON DIOXIDE 28 mmol/L (21-32); CHLORIDE 99 mmol/L (98-107); CREATININE 2.9 mg/dL (0.6-1.0); GFR 16.3; GLUCOSE 192 mg/dL (70-99); POTASSIUM 4.2 mmol/L (3.5-5.1); SODIUM 136 mmol/L (136-145)
[2017-11-03 06:31] LABS: TROPONINI < 0.017 ng/mL (0.000-0.055)
[2017-11-03] MEDS: ALBUTEROL SULFATE 2.5 MG/3 ML NEBU. NEB ×8 (07:47→19:54)
[2017-11-03] MEDS: BUDESONIDE 0.5 MG/2 ML NEBU. NEB ×4 (07:47→19:54)
[2017-11-03 08:26] LABS: BASE EXCESS ABG -4 mmol/L (-3-3); HCO3 ABG 24 mmol/L (21-28); PCO2 ABG 56 mmHg (35-46); PO2 ABG 64 mmHg (65-108); SAT O2 ABG 90 % (92-99)
[2017-11-03 08:27] LABS: PH ABG 7.25 (7.35-7.45)
[2017-11-03] MEDS: LINEZOLID 600 MG TABLET PO ×4 (08:52→20:50)
[2017-11-03] MEDS: PRASUGREL 10 MG TABLET. PO ×2 (08:52)
[2017-11-03] MEDS: ASPIRIN CHEWABLE 81 MG TABLET. PO ×2 (08:52)
[2017-11-03] MEDS: CITALOPRAM 20 MG TABLET. PO ×2 (08:52)
[2017-11-03] MEDS: LACTOBACILLUS RHAMNOSUS GG 1 CAPSULE. PO ×4 (08:52→20:50)
[2017-11-03] MEDS: AMOXICILLIN/K CLAV 500/125MG TABLET. PO ×2 (08:52)
[2017-11-03] MEDS: CARVEDILOL 6.25 MG TABLET. PO ×4 (08:53→17:26)
[2017-11-03] MEDS: FUROSEMIDE 40 MG/4 ML VIAL. IVP ×4 (08:54→15:09)
[2017-11-03] MEDS: LISINOPRIL 10 MG TABLET PO ×2 (08:54)
[2017-11-03] MEDS: INSULIN ASPART 300 UNITS/3 ML INSULN.PEN SQ ×6 (09:10→17:33)
[2017-11-03 09:26] LABS: POC GLUCOSE 150 mg/dL (70-99)
[2017-11-03 11:50] LABS: POC GLUCOSE 222 mg/dL (70-99)
[2017-11-03 13:07] LABS: TROPONINI < 0.017 ng/mL (0.000-0.055)
[2017-11-03 16:53] LABS: POC GLUCOSE 233 mg/dL (70-99)
[2017-11-03 18:45] LABS: TROPONINI < 0.017 ng/mL (0.000-0.055)
[2017-11-03 19:15] LABS: C DIFF BY PCR Negative (Negative)
[2017-11-03 20:32] LABS: POC GLUCOSE 276 mg/dL (70-99)
[2017-11-03] MEDS: ATORVASTATIN CALCIUM 10 MG TABLET. PO ×2 (20:51)
[2017-11-03] MEDS: INSULIN DETEMIR 300 UNITS/3 ML INSULN.PEN. SQ ×2 (20:58)
[2017-11-04 05:48] LABS: ALBUMIN 2.7 g/dL (3.4-5.0); ANION GAP 11 (6-14); CALCIUM 8.3 mg/dL (8.5-10.1); CARBON DIOXIDE 26 mmol/L (21-32); CHLORIDE 97 mmol/L (98-107); CREATININE 4.3 mg/dL (0.6-1.0); GFR 10.3; GLUCOSE 213 mg/dL (70-99); POTASSIUM 4.6 mmol/L (3.5-5.1); SODIUM 134 mmol/L (136-145)
[2017-11-04 05:50] LABS: BLOOD UREA NITROGEN 43 mg/dL (7-20)
[2017-11-04] MEDS: methylPREDNISolone SOD SUCC PF 125 MG/2 ML VIAL. IV ×8 (06:57→23:30)
[2017-11-04] MEDS: LEVOTHYROXINE 150 MCG TABLET PO ×2 (06:58)
[2017-11-04] MEDS: ALBUTEROL SULFATE 2.5 MG/3 ML NEBU. NEB ×8 (07:04→19:35)
[2017-11-04] MEDS: BUDESONIDE 0.5 MG/2 ML NEBU. NEB ×4 (07:04→19:37)
[2017-11-04 07:18] LABS: MAGNESIUM 2.1 mg/dL (1.8-2.4)
[2017-11-04 07:59] LABS: POC GLUCOSE 189 mg/dL (70-99)
[2017-11-04] MEDS: CITALOPRAM 20 MG TABLET. PO ×2 (08:20)
[2017-11-04] MEDS: CARVEDILOL 6.25 MG TABLET. PO ×4 (08:20→17:01)
[2017-11-04] MEDS: LACTOBACILLUS RHAMNOSUS GG 1 CAPSULE. PO ×4 (08:20→20:22)
[2017-11-04] MEDS: LINEZOLID 600 MG TABLET PO ×4 (08:20→20:22)
[2017-11-04] MEDS: LISINOPRIL 10 MG TABLET PO ×4 (08:20→10:58)
[2017-11-04] MEDS: PRASUGREL 10 MG TABLET. PO ×2 (08:20)
[2017-11-04] MEDS: AMOXICILLIN/K CLAV 500/125MG TABLET. PO ×2 (08:20)
[2017-11-04] MEDS: ASPIRIN CHEWABLE 81 MG TABLET. PO ×2 (08:20)
[2017-11-04] MEDS: FUROSEMIDE 40 MG/4 ML VIAL. IVP ×2 (08:21)
[2017-11-04] MEDS: INSULIN ASPART 300 UNITS/3 ML INSULN.PEN SQ ×6 (08:30→17:04)
[2017-11-04] MEDS: NYSTATIN TOPICAL POWDER 15GM BOTTLE. TP ×4 (11:39→20:31)
[2017-11-04 11:41] LABS: POC GLUCOSE 180 mg/dL (70-99)
[2017-11-04 17:24] LABS: POC GLUCOSE 202 mg/dL (70-99)
[2017-11-04] MEDS: ATORVASTATIN CALCIUM 10 MG TABLET. PO ×2 (20:22)
[2017-11-04] MEDS: INSULIN DETEMIR 300 UNITS/3 ML INSULN.PEN. SQ ×2 (20:31)
[2017-11-05 01:07] LABS: POC GLUCOSE 245 mg/dL (70-99)
[2017-11-05 04:28] LABS: HEMATOCRIT 30.8 % (36.0-47.0); HEMOGLOBIN 9.8 g/dL (12.0-15.5); MEAN CORPUSCULAR HEMOGLOBIN 30 pg (25-35); MEAN CORPUSCULAR HGB CONC 32 g/dL (31-37); MEAN CORPUSCULAR VOLUME 94 fL (79-100); PLATELET COUNT 139 x10^3/uL (140-400); RED BLOOD COUNT 3.28 x10^6/uL (3.50-5.40); RED CELL DISTRIBUTION WIDTH 16.1 % (11.5-14.5); WHITE BLOOD COUNT 5.8 x10^3/uL (4.0-11.0)
[2017-11-05 04:52] LABS: ALBUMIN 2.7 g/dL (3.4-5.0); ANION GAP 11 (6-14); BLOOD UREA NITROGEN 58 mg/dL (7-20); CALCIUM 7.8 mg/dL (8.5-10.1); CARBON DIOXIDE 25 mmol/L (21-32); CHLORIDE 97 mmol/L (98-107); GFR 8.7; GLUCOSE 247 mg/dL (70-99); PHOSPHORUS 6.4 mg/dL (2.6-4.7); POTASSIUM 4.8 mmol/L (3.5-5.1); SODIUM 133 mmol/L (136-145)
[2017-11-05] MEDS: LEVOTHYROXINE 150 MCG TABLET PO ×2 (06:10)
[2017-11-05] MEDS: methylPREDNISolone SOD SUCC PF 125 MG/2 ML VIAL. IV ×8 (06:10→23:57)
[2017-11-05] MEDS: ALBUTEROL SULFATE 2.5 MG/3 ML NEBU. NEB ×8 (07:16→18:12)
[2017-11-05] MEDS: BUDESONIDE 0.5 MG/2 ML NEBU. NEB ×4 (07:16→18:12)
[2017-11-05 07:36] LABS: POC GLUCOSE 228 mg/dL (70-99)
[2017-11-05] MEDS: INSULIN ASPART 300 UNITS/3 ML INSULN.PEN SQ ×6 (08:07→17:47)
[2017-11-05] MEDS: NYSTATIN TOPICAL POWDER 15GM BOTTLE. TP ×4 (08:08→20:17)
[2017-11-05] MEDS ORDERED: IV NORMAL SALINE 1000ML BAG 1,000 ML IV ×4 (08:51)
[2017-11-05] MEDS ORDERED: DIALYSIS PATIENT. MC ×4 (09:00)
[2017-11-05] MEDS ORDERED: 0.9 % SODIUM CHLORIDE 10 ML DISP.SYRIN. IV ×4 (09:00)
[2017-11-05 14:12] LABS: POC GLUCOSE 235 mg/dL (70-99)
[2017-11-05] MEDS: AMOXICILLIN/K CLAV 500/125MG TABLET. PO ×2 (14:30)
[2017-11-05] MEDS: LACTOBACILLUS RHAMNOSUS GG 1 CAPSULE. PO ×4 (14:30→20:16)
[2017-11-05] MEDS: ERGOCALCIFEROL (VITAMIN D2) 50,000 UNIT CAPSULE. PO ×2 (14:30)
[2017-11-05] MEDS: LINEZOLID 600 MG TABLET PO ×4 (14:32→20:16)
[2017-11-05] MEDS: CITALOPRAM 20 MG TABLET. PO ×2 (14:32)
[2017-11-05] MEDS: LISINOPRIL 20 MG TABLET PO ×2 (14:33)
[2017-11-05] MEDS: ASPIRIN CHEWABLE 81 MG TABLET. PO ×2 (14:33)
[2017-11-05] MEDS: CARVEDILOL 6.25 MG TABLET. PO ×2 (14:33)
[2017-11-05] MEDS: CLOPIDOGREL BISULFATE 75 MG TABLET PO ×2 (14:34)
[2017-11-05] MEDS: hydrALAZINE 20 MG/ML VIAL. IVP ×2 (14:55)
[2017-11-05 16:30] LABS: POC GLUCOSE 257 mg/dL (70-99)
[2017-11-05] MEDS: CARVEDILOL 12.5 MG TABLET. PO ×2 (17:44)
[2017-11-05] MEDS: FLUCONAZOLE 200MG/100ML PREMIX 100 ML IV ×2 (17:52)
[2017-11-05] MEDS: ATORVASTATIN CALCIUM 10 MG TABLET. PO ×2 (20:16)
[2017-11-05] MEDS: INSULIN DETEMIR 300 UNITS/3 ML INSULN.PEN. SQ ×2 (20:24)
[2017-11-05 21:50] LABS: POC GLUCOSE 340 mg/dL (70-99)
[2017-11-06] MEDS: hydrALAZINE 20 MG/ML VIAL. IVP ×4 (04:19→08:53)
[2017-11-06 06:26] LABS: ALBUMIN 2.7 g/dL (3.4-5.0); ANION GAP 7 (6-14); BLOOD UREA NITROGEN 47 mg/dL (7-20); CALCIUM 7.5 mg/dL (8.5-10.1); CARBON DIOXIDE 29 mmol/L (21-32); CHLORIDE 100 mmol/L (98-107); CREATININE 3.8 mg/dL (0.6-1.0); GFR 11.9; GLUCOSE 289 mg/dL (70-99); PHOSPHORUS 4.8 mg/dL (2.6-4.7); POTASSIUM 4.4 mmol/L (3.5-5.1); SODIUM 136 mmol/L (136-145)
[2017-11-06] MEDS: LEVOTHYROXINE 150 MCG TABLET PO ×2 (06:35)
[2017-11-06] MEDS: methylPREDNISolone SOD SUCC PF 125 MG/2 ML VIAL. IV ×4 (06:36→12:47)
[2017-11-06] MEDS: ALBUTEROL SULFATE 2.5 MG/3 ML NEBU. NEB ×8 (07:13→19:26)
[2017-11-06] MEDS: BUDESONIDE 0.5 MG/2 ML NEBU. NEB ×4 (07:13→19:26)
[2017-11-06 07:36] LABS: POC GLUCOSE 300 mg/dL (70-99)
[2017-11-06] MEDS: LINEZOLID 600 MG TABLET PO ×4 (08:54→20:29)
[2017-11-06] MEDS: LISINOPRIL 20 MG TABLET PO ×4 (08:54→20:30)
[2017-11-06] MEDS: AMOXICILLIN/K CLAV 500/125MG TABLET. PO ×2 (08:54)
[2017-11-06] MEDS: LACTOBACILLUS RHAMNOSUS GG 1 CAPSULE. PO ×4 (08:54→20:29)
[2017-11-06] MEDS: CITALOPRAM 20 MG TABLET. PO ×2 (08:54)
[2017-11-06] MEDS: NYSTATIN TOPICAL POWDER 15GM BOTTLE. TP ×4 (08:57→20:31)
[2017-11-06] MEDS: ASPIRIN CHEWABLE 81 MG TABLET. PO ×2 (08:58)
[2017-11-06] MEDS: CLOPIDOGREL BISULFATE 75 MG TABLET PO ×2 (08:59)
[2017-11-06] MEDS: INSULIN ASPART 300 UNITS/3 ML INSULN.PEN SQ ×12 (09:06→17:58)
[2017-11-06] MEDS: CARVEDILOL 12.5 MG TABLET. PO ×6 (09:51→17:22)
[2017-11-06 11:32] LABS: POC GLUCOSE 411 mg/dL (70-99)
[2017-11-06] MEDS ORDERED: DEXTROSE 50% 25 GM / 50ML DISP.SYRIN. IV ×2 (12:45)
[2017-11-06] MEDS ORDERED: INSULIN ASPART 300 UNITS/3 ML INSULN.PEN SQ ×2 (17:00)
[2017-11-06 17:14] LABS: POC GLUCOSE 370 mg/dL (70-99)
[2017-11-06] MEDS: FLUCONAZOLE 200MG/100ML PREMIX 100 ML IV ×2 (17:22)
[2017-11-06] MEDS: methylPREDNISolone SOD SUCC PF 40 MG/ML VIAL. IV ×2 (20:29)
[2017-11-06] MEDS: ATORVASTATIN CALCIUM 10 MG TABLET. PO ×2 (20:29)
[2017-11-06] MEDS: DARBEPOETIN ALFA 100 MCG/0.5 ML DISP.SYRIN. SQ ×2 (22:00)
[2017-11-06] MEDS: INSULIN DETEMIR 300 UNITS/3 ML INSULN.PEN. SQ ×2 (22:04)
[2017-11-07] MEDS: LEVOTHYROXINE 150 MCG TABLET PO ×2 (06:19)
[2017-11-07] MEDS: ALBUTEROL SULFATE 2.5 MG/3 ML NEBU. NEB ×8 (07:14→20:26)
[2017-11-07] MEDS: BUDESONIDE 0.5 MG/2 ML NEBU. NEB ×4 (07:15→20:26)
[2017-11-07] MEDS: CARVEDILOL 12.5 MG TABLET. PO ×4 (08:34→17:29)
[2017-11-07] MEDS: CITALOPRAM 20 MG TABLET. PO ×2 (08:35)
[2017-11-07] MEDS: methylPREDNISolone SOD SUCC PF 40 MG/ML VIAL. IV ×4 (08:35→21:28)
[2017-11-07] MEDS: LACTOBACILLUS RHAMNOSUS GG 1 CAPSULE. PO ×4 (08:35→21:28)
[2017-11-07] MEDS: LISINOPRIL 20 MG TABLET PO ×4 (08:35→21:28)
[2017-11-07] MEDS: LINEZOLID 600 MG TABLET PO ×4 (08:35→21:29)
[2017-11-07] MEDS: ASPIRIN CHEWABLE 81 MG TABLET. PO ×2 (08:36)
[2017-11-07] MEDS: NYSTATIN TOPICAL POWDER 15GM BOTTLE. TP ×4 (08:36→21:30)
[2017-11-07] MEDS: CLOPIDOGREL BISULFATE 75 MG TABLET PO ×2 (08:36)
[2017-11-07] MEDS: INSULIN ASPART 300 UNITS/3 ML INSULN.PEN SQ ×12 (08:45→17:33)
[2017-11-07] MEDS ORDERED: IV NORMAL SALINE 1000ML BAG 1,000 ML IV ×4 (10:24)
[2017-11-07] MEDS ORDERED: 0.9 % SODIUM CHLORIDE 10 ML DISP.SYRIN. IV ×4 (10:30)
[2017-11-07] MEDS ORDERED: ACETAMINOPHEN 500 MG TABLET PO ×2 (10:30)
[2017-11-07] MEDS ORDERED: DIALYSIS PATIENT. MC ×2 (10:30)
[2017-11-07] MEDS ORDERED: diphenhydrAMINE 50 MG/ML VIAL IV ×4 (10:30)
[2017-11-07 11:22] LABS: POC GLUCOSE 207 mg/dL (70-99)
[2017-11-07 14:32] LABS: POC GLUCOSE 104 mg/dL (70-99)
[2017-11-07] MEDS: AMOXICILLIN/K CLAV 500/125MG TABLET. PO ×2 (14:48)
[2017-11-07 16:42] LABS: POC GLUCOSE 215 mg/dL (70-99)
[2017-11-07] MEDS: FLUCONAZOLE 200MG/100ML PREMIX 100 ML IV ×4 (17:24→21:30)
[2017-11-07 19:26] LABS: POC GLUCOSE 257 mg/dL (70-99)
[2017-11-07] MEDS: amLODIPine BESYLATE 10 MG TABLET PO ×2 (21:29)
[2017-11-07] MEDS: ATORVASTATIN CALCIUM 10 MG TABLET. PO ×2 (21:29)
[2017-11-07] MEDS: INSULIN DETEMIR 300 UNITS/3 ML INSULN.PEN. SQ ×2 (21:41)
[2017-11-07 21:49] LABS: POC GLUCOSE 317 mg/dL (70-99)
[2017-11-07] MEDS: cloNIDine HCL 0.1 MG TABLET PO ×2 (23:39)
[2017-11-07] MEDS: hydrALAZINE 20 MG/ML VIAL. IVP ×2 (23:40)
[2017-11-08] MEDS ORDERED: PROCHLORPERAZINE 10 MG/2 ML VIAL. IV ×2 (07:00)
[2017-11-08] MEDS ORDERED: HYDROmorphone 2 MG/ML VIAL IV ×2 (07:00)
[2017-11-08] MEDS ORDERED: MORPHINE SULFATE 2 MG/ML DISP.SYRIN. IV ×4 (07:00→12:45)
[2017-11-08] MEDS ORDERED: LIDOCAINE 1% PF 2 ML VIAL. ID ×2 (07:00)
[2017-11-08] MEDS: LEVOTHYROXINE 150 MCG TABLET PO ×2 (07:00)
[2017-11-08] MEDS ORDERED: IV RINGERS,LACTATED 1000ML 1,000 ML IV ×2 (07:00)
[2017-11-08] MEDS ORDERED: LIDOCAINE 1% 20 ML VIAL. ×2 (07:19)
[2017-11-08] MEDS: ALBUTEROL SULFATE 2.5 MG/3 ML NEBU. NEB ×8 (07:20→20:12)
[2017-11-08] MEDS: BUDESONIDE 0.5 MG/2 ML NEBU. NEB ×4 (07:20→20:12)
[2017-11-08 07:34] LABS: POC GLUCOSE 274 mg/dL (70-99)
[2017-11-08] MEDS: INSULIN ASPART 300 UNITS/3 ML INSULN.PEN SQ ×12 (08:00→18:20)
[2017-11-08] MEDS: CLOPIDOGREL BISULFATE 75 MG TABLET PO ×2 (08:00)
[2017-11-08] MEDS: methylPREDNISolone SOD SUCC PF 40 MG/ML VIAL. IV ×4 (08:39→20:06)
[2017-11-08] MEDS: hydrALAZINE 20 MG/ML VIAL. IVP ×2 (08:40)
[2017-11-08] MEDS: CARVEDILOL 12.5 MG TABLET. PO ×4 (08:40→18:00)
[2017-11-08] MEDS: HYDROCORTISONE 1% TOPICAL OINTMENT 30GM TUBE. TP ×2 (08:48)
[2017-11-08] MEDS: LINEZOLID 600 MG TABLET PO ×4 (09:00→20:01)
[2017-11-08] MEDS: NYSTATIN TOPICAL POWDER 15GM BOTTLE. TP ×4 (09:00→20:06)
[2017-11-08] MEDS: LACTOBACILLUS RHAMNOSUS GG 1 CAPSULE. PO ×4 (09:00→20:01)
[2017-11-08] MEDS: CITALOPRAM 20 MG TABLET. PO ×2 (09:00)
[2017-11-08] MEDS: AMOXICILLIN/K CLAV 500/125MG TABLET. PO ×2 (09:00)
[2017-11-08] MEDS: LISINOPRIL 20 MG TABLET PO ×4 (09:00→20:03)
[2017-11-08] MEDS: ASPIRIN CHEWABLE 81 MG TABLET. PO ×2 (09:00)
[2017-11-08 10:48] LABS: POC GLUCOSE 266 mg/dL (70-99)
[2017-11-08] MEDS ORDERED: ONDANSETRON PF 4 MG/2 ML VIAL. ×2 (12:10)
[2017-11-08] MEDS ORDERED: LIDOCAINE 2% PF Vial for OR 5 ML VIAL. ×2 (12:10)
[2017-11-08] MEDS ORDERED: DEXAMETHASONE SOD PHOS 20 MG/5 ML VIAL. ×2 (12:10)
[2017-11-08] MEDS ORDERED: FAMOTIDINE 20 MG/2 ML VIAL ×2 (12:10)
[2017-11-08] MEDS ORDERED: ETOMIDATE 20 MG/10 ML VIAL. IV ×2 (12:10)
[2017-11-08] MEDS ORDERED: fentaNYL PF VIAL 100 MCG/2 ML VIAL ×2 (12:11)
[2017-11-08] MEDS ORDERED: MIDAZOLAM HCL/PF 2 MG/2 ML VIAL. ×2 (12:11)
[2017-11-08] MEDS ORDERED: ROCURONIUM 50 MG/5 ML VIAL. ×2 (12:12)
[2017-11-08] MEDS: IV NORMAL SALINE 1000ML BAG 1,000 ML IV ×4 (12:29→12:32)
[2017-11-08] MEDS: LACT RINGERS MC ×3 (12:30→13:10)
[2017-11-08] MEDS: DEXTROSE 5% MC ×3 (12:30→13:10)
[2017-11-08] MEDS ORDERED: MAG HYDROX/ALUMINUM HYD/SIMETH 30 ML ORAL.SUSP PO ×2 (12:45)
[2017-11-08] MEDS ORDERED: 0.9 % SODIUM CHLORIDE 10 ML DISP.SYRIN. IV ×2 (12:45)
[2017-11-08] MEDS ORDERED: LABETALOL 20 MG/4 ML DISP.SYRIN. IVP ×2 (12:45)
[2017-11-08] MEDS ORDERED: ceFAZolin SODIUM 1 GM in IV DEXTROSE 5% 50 ML IV (12:45)
[2017-11-08] MEDS ORDERED: CALCIUM CARBONATE 500 MG TAB.CHEW PO ×2 (12:45)
[2017-11-08] MEDS ORDERED: oxyCODONE/APAP 5/325 1 TAB TABLET PO ×2 (12:45)
[2017-11-08] MEDS: HEPARIN SODIUM 5,000 UNIT in IV RINGERS,LACTATED 500ML 500 ML IRR (12:45)
[2017-11-08] MEDS ORDERED: hydrALAZINE 20 MG/ML VIAL. IVP ×2 (12:45)
[2017-11-08] MEDS ORDERED: ONDANSETRON PF 4 MG/2 ML VIAL. IV ×2 (12:45)
[2017-11-08] MEDS ORDERED: NALOXONE 0.4 MG/ML VIAL. IV ×2 (12:45)
[2017-11-08] MEDS: HEPARIN SODIUM MC (13:10)
[2017-11-08] MEDS: HEPARIN SODIUM 5,000 UNIT in IV NORMAL SALINE 500ML BAG 500 ML IRR (13:10)
[2017-11-08] MEDS: IV RINGERS,LACTATED 500ML 500 ML IRR ×2 (13:10)
[2017-11-08] MEDS ORDERED: HEPARIN for IV BOLUS 10,000 UNIT/10 ML VIAL. ×2 (13:39)
[2017-11-08] MEDS ORDERED: PROTAMINE 50 MG/5 ML VIAL. IV ×2 (14:41)
[2017-11-08] MEDS ORDERED: NEOSTIGMINE METHYLSULFATE 5 MG/5 ML SYRINGE. ×2 (14:46)
[2017-11-08] MEDS ORDERED: GLYCOPYRROLATE 1 MG/5 ML VIAL. ×2 (14:46)
[2017-11-08] MEDS: SURGICEL FIBRILLAR 1X2 EACH. ×2 (14:50)
[2017-11-08] MEDS ORDERED: DESFLURANE > 120 MINUTES IH ×2 (15:03)
[2017-11-08 15:40] LABS: POC GLUCOSE 222 mg/dL (70-99)
[2017-11-08] MEDS: INSULIN ASPART 100 UNIT/ML 10ML VIAL. SQ ×2 (15:51)
[2017-11-08 15:55] LABS: IMMEDIATE SPIN CROSSMATCH 1 3
[2017-11-08] MEDS: FLUCONAZOLE 200MG/100ML PREMIX 100 ML IV ×2 (18:07)
[2017-11-08] MEDS: ATORVASTATIN CALCIUM 10 MG TABLET. PO ×2 (20:02)
[2017-11-08] MEDS: amLODIPine BESYLATE 10 MG TABLET PO ×2 (20:02)
[2017-11-08] MEDS: oxyCODONE/APAP 5/325 1 TAB TABLET PO ×2 (20:05)
[2017-11-08] MEDS: ceFAZolin SODIUM IV Push 1 GM VIAL. IVP ×2 (21:08)
[2017-11-08 21:14] LABS: POC GLUCOSE 285 mg/dL (70-99)
[2017-11-08] MEDS: INSULIN DETEMIR 300 UNITS/3 ML INSULN.PEN. SQ ×2 (21:16)
[2017-11-09] MEDS: ceFAZolin SODIUM IV Push 1 GM VIAL. IVP ×4 (02:04→07:00)
[2017-11-09 06:03] LABS: HEMATOCRIT 33.1 % (36.0-47.0); HEMOGLOBIN 10.9 g/dL (12.0-15.5); MEAN CORPUSCULAR HEMOGLOBIN 29 pg (25-35); MEAN CORPUSCULAR HGB CONC 33 g/dL (31-37); MEAN CORPUSCULAR VOLUME 90 fL (79-100); PLATELET COUNT 96 x10^3/uL (140-400); RED BLOOD COUNT 3.69 x10^6/uL (3.50-5.40); RED CELL DISTRIBUTION WIDTH 16.3 % (11.5-14.5); WHITE BLOOD COUNT 6.4 x10^3/uL (4.0-11.0)
[2017-11-09] MEDS: LEVOTHYROXINE 150 MCG TABLET PO ×2 (06:06)
[2017-11-09] MEDS: oxyCODONE/APAP 5/325 1 TAB TABLET PO ×2 (06:09)
[2017-11-09 06:27] LABS: ANION GAP 11 (6-14); BLOOD UREA NITROGEN 75 mg/dL (7-20); CALCIUM 7.3 mg/dL (8.5-10.1); CARBON DIOXIDE 24 mmol/L (21-32); CHLORIDE 99 mmol/L (98-107); CREATININE 4.2 mg/dL (0.6-1.0); GFR 10.6; GLUCOSE 237 mg/dL (70-99); POTASSIUM 5.1 mmol/L (3.5-5.1); SODIUM 134 mmol/L (136-145)
[2017-11-09] MEDS: BUDESONIDE 0.5 MG/2 ML NEBU. NEB ×2 (07:44)
[2017-11-09] MEDS: ALBUTEROL SULFATE 2.5 MG/3 ML NEBU. NEB ×8 (07:46→19:58)
[2017-11-09 07:58] LABS: POC GLUCOSE 215 mg/dL (70-99)
[2017-11-09] MEDS: INSULIN ASPART 300 UNITS/3 ML INSULN.PEN SQ ×12 (08:18→17:00)
[2017-11-09] MEDS: NYSTATIN TOPICAL POWDER 15GM BOTTLE. TP ×4 (09:00→20:07)
[2017-11-09] MEDS: ELECTROLYTE (NON-ICU) PROTOCOL MC ×2 (09:00)
[2017-11-09] MEDS: methylPREDNISolone SOD SUCC PF 40 MG/ML VIAL. IV ×2 (09:41)
[2017-11-09] MEDS: ASPIRIN CHEWABLE 81 MG TABLET. PO ×2 (09:41)
[2017-11-09] MEDS: LISINOPRIL 20 MG TABLET PO ×4 (09:42→20:07)
[2017-11-09] MEDS: CLOPIDOGREL BISULFATE 75 MG TABLET PO ×2 (09:42)
[2017-11-09] MEDS: LINEZOLID 600 MG TABLET PO ×4 (09:42→20:06)
[2017-11-09] MEDS: LACTOBACILLUS RHAMNOSUS GG 1 CAPSULE. PO ×4 (09:42→20:06)
[2017-11-09] MEDS: CARVEDILOL 12.5 MG TABLET. PO ×4 (09:43→17:00)
[2017-11-09] MEDS: CITALOPRAM 20 MG TABLET. PO ×2 (09:46)
[2017-11-09] MEDS: AMOXICILLIN/K CLAV 500/125MG TABLET. PO ×2 (09:48)
[2017-11-09] MEDS: IV NORMAL SALINE 1000ML BAG 1,000 ML IV ×4 (09:48→20:16)
[2017-11-09 10:44] LABS: PHOSPHORUS 7.8 mg/dL (2.6-4.7)
[2017-11-09 10:44] LABS: MAGNESIUM 2.2 mg/dL (1.8-2.4)
[2017-11-09] MEDS ORDERED: IV NORMAL SALINE 1000ML BAG 1,000 ML IV ×4 (11:12)
[2017-11-09] MEDS ORDERED: DIALYSIS PATIENT. MC ×2 (11:15)
[2017-11-09 11:26] LABS: POC GLUCOSE 231 mg/dL (70-99)
[2017-11-09 12:52] LABS: BASO % 0 % (0-3); EOS % 0 % (0-3); HEMATOCRIT 35.2 % (36.0-47.0); LYMPH # 0.9 x10^3/uL (1.0-4.8); LYMPH % 10 % (24-48); MEAN CORPUSCULAR HEMOGLOBIN 29 pg (25-35); MEAN CORPUSCULAR HGB CONC 31 g/dL (31-37); MEAN CORPUSCULAR VOLUME 93 fL (79-100); MONO # 0.4 x10^3/uL (0.0-1.1); MONO % 5 % (0-9); NEUT # 7.6 x10^3uL (1.8-7.7); NEUT % 86 % (31-73); PLATELET COUNT 105 x10^3/uL (140-400); RED BLOOD COUNT 3.78 x10^6/uL (3.50-5.40); RED CELL DISTRIBUTION WIDTH 16.3 % (11.5-14.5); WHITE BLOOD COUNT 8.9 x10^3/uL (4.0-11.0)
[2017-11-09 13:14] LABS: ADD MAN DIFF? YES
[2017-11-09 16:52] LABS: POC GLUCOSE 100 mg/dL (70-99)
[2017-11-09 16:53] LABS: % LYMPHS 11 % (24-48); % MONOS 6 % (0-10); % SEGS 83 % (35-66); OVALOCYTES OCC; PLT ESTIMATE ADEQUATE (ADEQUATE); SCHISTOCYTES OCC; STOMATOCYTES OCC
[2017-11-09] MEDS: FLUCONAZOLE 200MG/100ML PREMIX 100 ML IV ×2 (17:00)
[2017-11-09] MEDS: amLODIPine BESYLATE 10 MG TABLET PO ×2 (20:06)
[2017-11-09] MEDS: ATORVASTATIN CALCIUM 10 MG TABLET. PO ×2 (20:06)
[2017-11-09] MEDS: INSULIN DETEMIR 300 UNITS/3 ML INSULN.PEN. SQ ×2 (20:09)
[2017-11-09 21:13] LABS: POC GLUCOSE 138 mg/dL (70-99)
[2017-11-10 07:28] LABS: POC GLUCOSE 141 mg/dL (70-99)
[2017-11-10] MEDS: BUDESONIDE 0.5 MG/2 ML NEBU. NEB ×2 (07:28)
[2017-11-10] MEDS: ALBUTEROL SULFATE 2.5 MG/3 ML NEBU. NEB ×4 (07:28→11:16)
[2017-11-10] MEDS: ASPIRIN CHEWABLE 81 MG TABLET. PO ×2 (09:48)
[2017-11-10] MEDS: CITALOPRAM 20 MG TABLET. PO ×2 (09:48)
[2017-11-10] MEDS: LEVOTHYROXINE 150 MCG TABLET PO ×2 (09:48)
[2017-11-10] MEDS: AMOXICILLIN/K CLAV 500/125MG TABLET. PO ×2 (09:48)
[2017-11-10] MEDS: CLOPIDOGREL BISULFATE 75 MG TABLET PO ×2 (09:48)
[2017-11-10] MEDS: CARVEDILOL 12.5 MG TABLET. PO ×2 (09:49)
[2017-11-10] MEDS: LINEZOLID 600 MG TABLET PO ×2 (09:49)
[2017-11-10] MEDS: LISINOPRIL 20 MG TABLET PO ×2 (09:49)
[2017-11-10] MEDS: LACTOBACILLUS RHAMNOSUS GG 1 CAPSULE. PO ×2 (09:49)
[2017-11-10] MEDS: NYSTATIN TOPICAL POWDER 15GM BOTTLE. TP ×2 (09:50)
[2017-11-10] MEDS: INSULIN ASPART 300 UNITS/3 ML INSULN.PEN SQ ×8 (09:53→12:20)
[2017-11-10] MEDS: ELECTROLYTE (NON-ICU) PROTOCOL MC ×2 (09:59)
[2017-11-10 11:06] LABS: POC GLUCOSE 186 mg/dL (70-99)
== END 2017-11-10 13:53 | disposition home health service (06) | DRG 622 ==
LOC: ER 16:36 → 5 SOUTH 20:14
PROVIDERS: Family Medicine
PROC: 0JBQ0ZZ Excision of Right Foot Subcutaneous Tissue and Fascia, Open Approach (ICD-10-PCS; principal; 2017-11-08 12:43)
PROC: 041K0KL Bypass Right Femoral Artery to Popliteal Artery with Nonautologous Tissue Substitute, Open Approach (ICD-10-PCS; 2017-11-08 12:43)
PROC: 5A1D70Z Performance of Urinary Filtration, Intermittent, Less than 6 Hours Per Day (ICD-10-PCS; 2017-11-08 12:43)
PROC: 5A1D70Z Performance of Urinary Filtration, Intermittent, Less than 6 Hours Per Day (ICD-10-PCS; 2017-11-08 12:43)
PROC: 5A1D70Z Performance of Urinary Filtration, Intermittent, Less than 6 Hours Per Day (ICD-10-PCS; 2017-11-08 12:43)
PROC: 5A1D70Z Performance of Urinary Filtration, Intermittent, Less than 6 Hours Per Day (ICD-10-PCS; 2017-11-08 12:43)
PROC: 5A1D70Z Performance of Urinary Filtration, Intermittent, Less than 6 Hours Per Day (ICD-10-PCS; 2017-11-08 12:43)
PROC: 5A1D70Z Performance of Urinary Filtration, Intermittent, Less than 6 Hours Per Day (ICD-10-PCS; 2017-11-08 12:43)
PROC: B4101ZZ Fluoroscopy of Abdominal Aorta using Low Osmolar Contrast (ICD-10-PCS; 2017-11-08 12:43)
PROC: B41F1ZZ Fluoroscopy of Right Lower Extremity Arteries using Low Osmolar Contrast (ICD-10-PCS; 2017-11-08 12:43)
PROC: 0JBQ0ZZ Excision of Right Foot Subcutaneous Tissue and Fascia, Open Approach (ICD-10-PCS; 2017-11-08 12:43)
PROC: 5A09357 Assistance with Respiratory Ventilation, Less than 24 Consecutive Hours, Continuous Positive Airway Pressure (ICD-10-PCS; 2017-11-08 12:43)
PROC: 5A09357 Assistance with Respiratory Ventilation, Less than 24 Consecutive Hours, Continuous Positive Airway Pressure (ICD-10-PCS; 2017-11-08 12:43)
PROC: 30233N1 Transfusion of Nonautologous Red Blood Cells into Peripheral Vein, Percutaneous Approach (ICD-10-PCS; 2017-11-08 12:43)
DX: E11.621 Type 2 diabetes mellitus with foot ulcer (principal); I50.43 Acute on chronic combined systolic (congestive) and diastolic (congestive) heart failure; L97.419 Non-pressure chronic ulcer of right heel and midfoot with unspecified severity; J96.21 Acute and chronic respiratory failure with hypoxia; I13.2 Hypertensive heart and chronic kidney disease with heart failure and with stage 5 chronic kidney disease, or end stage renal disease; E11.22 Type 2 diabetes mellitus with diabetic chronic kidney disease; E11.51 Type 2 diabetes mellitus with diabetic peripheral angiopathy without gangrene; E11.42 Type 2 diabetes mellitus with diabetic polyneuropathy; E87.5 Hyperkalemia; I48.91 Unspecified atrial fibrillation; B37.2 Candidiasis of skin and nail; J96.22 Acute and chronic respiratory failure with hypercapnia; L03.115 Cellulitis of right lower limb; T82.898A Other specified complication of vascular prosthetic devices, implants and grafts, initial encounter; J44.1 Chronic obstructive pulmonary disease with (acute) exacerbation; J44.0 Chronic obstructive pulmonary disease with (acute) lower respiratory infection; N18.6 End stage renal disease; D63.8 Anemia in other chronic diseases classified elsewhere; E03.9 Hypothyroidism, unspecified; E11.628 Type 2 diabetes mellitus with other skin complications; E11.649 Type 2 diabetes mellitus with hypoglycemia without coma; E11.65 Type 2 diabetes mellitus with hyperglycemia; E66.9 Obesity, unspecified; E78.5 Hyperlipidemia, unspecified; F17.210 Nicotine dependence, cigarettes, uncomplicated; I05.9 Rheumatic mitral valve disease, unspecified; I25.10 Atherosclerotic heart disease of native coronary artery without angina pectoris; I25.5 Ischemic cardiomyopathy; I27.29 Other secondary pulmonary hypertension; I77.1 Stricture of artery; J20.9 Acute bronchitis, unspecified; K21.9 Gastro-esophageal reflux disease without esophagitis; L27.0 Generalized skin eruption due to drugs and medicaments taken internally; T38.0X5A Adverse effect of glucocorticoids and synthetic analogues, initial encounter; E21.3 Hyperparathyroidism, unspecified; F32.9 Major depressive disorder, single episode, unspecified; Y83.2 Surgical operation with anastomosis, bypass or graft as the cause of abnormal reaction of the patient, or of later complication, without mention of misadventure at the time of the procedure; Z82.49 Family history of ischemic heart disease and other diseases of the circulatory system; Z83.3 Family history of diabetes mellitus; Z82.5 Family history of asthma and other chronic lower respiratory diseases; Z89.512 Acquired absence of left leg below knee; Z95.5 Presence of coronary angioplasty implant and graft; Z95.810 Presence of automatic (implantable) cardiac defibrillator; Z99.2 Dependence on renal dialysis; Z99.81 Dependence on supplemental oxygen
CPT/HCPCS: 36415; 36600; 71045; 75630; 80048; 80053; 80069; 80202; 82805; 82962; 83605; 83735; 84100; 84484; 85007; 85018; 85025; 85027; 86850; 86900; 86901; 86920; 87040; 87324; 87804; 87804-59; 93005; 93306; 93926; 94640; 94660; 94760; 96365; 96366; 96375; 99152; 99153; 99285; 99285-25; C1768; C1769; C1892; G0238; J0360; J0690; J0881; J1100; J1200; J1450; J1644; J1815; J1940; J2250; J2405; J2543; J2710; J2920; J2930; J3010; J3370; J3490; J7030; J7040; J7120; J7613; J7620; J7626; P9016; Q0163; S0028

== ENCOUNTER → 2017-11-20 | Outpatient (CLI) | payer BC, MEDICAID | END | disposition home or self-care (01) | LOC: PMGWOUND 08:52 | DX: E11.621 Type 2 diabetes mellitus with foot ulcer (principal); L97.413 Non-pressure chronic ulcer of right heel and midfoot with necrosis of muscle; E11.51 Type 2 diabetes mellitus with diabetic peripheral angiopathy without gangrene; E03.9 Hypothyroidism, unspecified; E78.5 Hyperlipidemia, unspecified; I25.10 Atherosclerotic heart disease of native coronary artery without angina pectoris; E11.22 Type 2 diabetes mellitus with diabetic chronic kidney disease; I13.2 Hypertensive heart and chronic kidney disease with heart failure and with stage 5 chronic kidney disease, or end stage renal disease; I50.43 Acute on chronic combined systolic (congestive) and diastolic (congestive) heart failure; N18.6 End stage renal disease; J44.0 Chronic obstructive pulmonary disease with (acute) lower respiratory infection; J44.1 Chronic obstructive pulmonary disease with (acute) exacerbation; K21.9 Gastro-esophageal reflux disease without esophagitis; M19.90 Unspecified osteoarthritis, unspecified site; I48.91 Unspecified atrial fibrillation; E11.649 Type 2 diabetes mellitus with hypoglycemia without coma; E11.65 Type 2 diabetes mellitus with hyperglycemia; E11.42 Type 2 diabetes mellitus with diabetic polyneuropathy; E21.3 Hyperparathyroidism, unspecified; F32.9 Major depressive disorder, single episode, unspecified; F17.210 Nicotine dependence, cigarettes, uncomplicated; E66.9 Obesity, unspecified; Z68.37 Body mass index [BMI] 37.0-37.9, adult; Z89.512 Acquired absence of left leg below knee; Z99.2 Dependence on renal dialysis; Z90.710 Acquired absence of both cervix and uterus; Z89.411 Acquired absence of right great toe; Z95.810 Presence of automatic (implantable) cardiac defibrillator; Z95.5 Presence of coronary angioplasty implant and graft | CPT/HCPCS: 97597 ==

== ENCOUNTER → 2017-11-27 | Outpatient (CLI) | payer BC, MEDICAID | END | disposition home or self-care (01) | LOC: PMGWOUND 08:43 | DX: E11.621 Type 2 diabetes mellitus with foot ulcer (principal); L97.413 Non-pressure chronic ulcer of right heel and midfoot with necrosis of muscle; E11.51 Type 2 diabetes mellitus with diabetic peripheral angiopathy without gangrene; I25.10 Atherosclerotic heart disease of native coronary artery without angina pectoris; J44.0 Chronic obstructive pulmonary disease with (acute) lower respiratory infection; K21.9 Gastro-esophageal reflux disease without esophagitis; E11.22 Type 2 diabetes mellitus with diabetic chronic kidney disease; I13.2 Hypertensive heart and chronic kidney disease with heart failure and with stage 5 chronic kidney disease, or end stage renal disease; N18.6 End stage renal disease; I50.43 Acute on chronic combined systolic (congestive) and diastolic (congestive) heart failure; E78.5 Hyperlipidemia, unspecified; E21.3 Hyperparathyroidism, unspecified; F32.9 Major depressive disorder, single episode, unspecified; E66.9 Obesity, unspecified; E11.42 Type 2 diabetes mellitus with diabetic polyneuropathy; I48.91 Unspecified atrial fibrillation; M19.90 Unspecified osteoarthritis, unspecified site; Z99.2 Dependence on renal dialysis; F17.210 Nicotine dependence, cigarettes, uncomplicated; Z89.512 Acquired absence of left leg below knee; Z89.411 Acquired absence of right great toe; Z90.710 Acquired absence of both cervix and uterus | CPT/HCPCS: 93922; 99214 ==

== ENCOUNTER 2017-12-13 11:50 | Day surgery (SDC) | payer BC, MEDICAID ==
[~2017-12-13 11:50] MED LIST changes: -ALBU2.5V5 NEB; -AMLO10TA2 PO; -AMOX1TAB10 PO; -ASPI-630 PO; -ATOR10TA60 PO; -AZIT250T6 PO; -BREO ELLIPTA 21 EACH IH; -CARV6.252 PO; -CEFP100T PO; -CITA20TA9 PO; -CLOP75TA57 PO; -DARB60DI SQ; -DOXY100T PO; -ERGO500027 PO; -FAMO20TA5 PO; -FERR324T14 PO; -FERR325T72 PO; -FLUT1DIS3 INH; -FURO40TA4 PO; -GUAI600T47 PO; -HUM100VI5 SQ; -HYDR-2868 PO; -HYDR-2869 PO; -HYDR25CA75 PO; +HYDROmorphone 2 MG/ML VIAL IV; -INSU100I13 SQ; -INSU100I17 SQ; -INSU100I27 SQ; -INSU100V8 SQ; -ISOS30TA4 PO; +IV RINGERS,LACTATED 1000ML 1,000 ML IV; -LACT1CAP19 PO; -LEVO100T5 PO; -LEVO150T5 PO; -LEVO50TA PO; +LIDOCAINE 1% PF 2 ML VIAL. ID; -LISI-334 PO; -LISI40TA PO; +MIDAZOLAM HCL/PF 2 MG/2 ML VIAL.; +MORPHINE SULFATE 2 MG/ML DISP.SYRIN. IV; -NYST15PO9 TP; -NYST60PO TP; -OXYC1TAB7 PO; -PATI8.4P PO; -PRAS10TA9 PO; -PRED20TA PO; -PRED50TA PO; +PROCHLORPERAZINE 10 MG/2 ML VIAL. IV; +PROPOFOL 20 ML IV; -SODI325T PO; -SODI650T PO; -SPIR25TA PO; +ceFAZolin 2GM PREMIX 2 GM/50 ML BAG IV; +fentaNYL PF VIAL 100 MCG/2 ML VIAL; +fentaNYL PF VIAL 100 MCG/2 ML VIAL IV
[2017-12-13] MEDS ORDERED: LIDOCAINE 1% 20 ML VIAL. (11:55)
[2017-12-13] MEDS ORDERED: ONDANSETRON PF 4 MG/2 ML VIAL. (12:27)
[2017-12-13] MEDS ORDERED: DEXAMETHASONE SOD PHOS 20 MG/5 ML VIAL. (12:27)
[2017-12-13] MEDS: IV NORMAL SALINE 1000ML BAG 1,000 ML IV (12:52)
[2017-12-13] MEDS ORDERED: fentaNYL PF VIAL 100 MCG/2 ML VIAL IV ×2 (13:00)
[2017-12-13] MEDS ORDERED: LIDOCAINE 1% PF 2 ML VIAL. ID (13:00)
[2017-12-13] MEDS ORDERED: MIDAZOLAM HCL/PF 2 MG/2 ML VIAL. IV (13:00)
[2017-12-13 13:30] LABS: ADD MAN DIFF? NO
[2017-12-13 13:33] LABS: BASO # 0.1 x10^3/uL (0.0-0.2); BASO % 1 % (0-3); EOS # 0.1 x10^3/uL (0.0-0.7); EOS % 1 % (0-3); HEMATOCRIT 29.6 % (36.0-47.0); HEMOGLOBIN 9.5 g/dL (12.0-15.5); LYMPH # 1.5 x10^3/uL (1.0-4.8); LYMPH % 17 % (24-48); MEAN CORPUSCULAR HEMOGLOBIN 30 pg (25-35); MEAN CORPUSCULAR HGB CONC 32 g/dL (31-37); MEAN CORPUSCULAR VOLUME 94 fL (79-100); MONO # 0.7 x10^3/uL (0.0-1.1); MONO % 8 % (0-9); NEUT # 6.4 x10^3uL (1.8-7.7); NEUT % 73 % (31-73); PLATELET COUNT 165 x10^3/uL (140-400); RED BLOOD COUNT 3.14 x10^6/uL (3.50-5.40); RED CELL DISTRIBUTION WIDTH 18.2 % (11.5-14.5); WHITE BLOOD COUNT 8.8 x10^3/uL (4.0-11.0)
[2017-12-13] MEDS: HEPARIN SODIUM 5,000 UNIT in IV NORMAL SALINE 500ML BAG 500 ML IRR (13:41)
[2017-12-13 13:47] LABS: ANION GAP 6 (6-14); BLOOD UREA NITROGEN 22 mg/dL (7-20); CARBON DIOXIDE 31 mmol/L (21-32); CHLORIDE 103 mmol/L (98-107); CREATININE 2.3 mg/dL (0.6-1.0); GFR 21.3; GLUCOSE 143 mg/dL (70-99); POTASSIUM 4.2 mmol/L (3.5-5.1); SODIUM 140 mmol/L (136-145)
[2017-12-13] MEDS: LIDOCAINE 1% 20 ML VIAL. (13:50)
[2017-12-13 14:19] LABS: INR 1.3 (0.8-1.1); PARTIAL THROMBOPLASTIN TIME 36 SEC (24-38); PROTHROMBIN TIME PATIENT 15.3 SEC (11.7-14.0)
[2017-12-13] MEDS ORDERED: SEVOFLURANE 61 TO 120 MINUTES. IH (14:35)
[2017-12-13] MEDS ORDERED: ALBUTEROL SULFATE 2.5 MG/3 ML NEBU. (14:35)
[2017-12-13 15:19] LABS: POC GLUCOSE 139 mg/dL (70-99)
== END 2017-12-13 15:45 | disposition home or self-care (01) ==
LOC: SURG 11:50
DX: N18.6 End stage renal disease (principal); J44.1 Chronic obstructive pulmonary disease with (acute) exacerbation; I25.5 Ischemic cardiomyopathy; E11.621 Type 2 diabetes mellitus with foot ulcer; I50.9 Heart failure, unspecified; J96.21 Acute and chronic respiratory failure with hypoxia; Z99.2 Dependence on renal dialysis; Z79.899 Other long term (current) drug therapy; Z79.84 Long term (current) use of oral hypoglycemic drugs; Z79.4 Long term (current) use of insulin; Z79.82 Long term (current) use of aspirin
CPT/HCPCS: 36415; 80048; 82962; 85025; 85610; 85730; J0690; J1100; J1644; J2250; J2405; J2704; J3010; J7040; J7613

== ENCOUNTER 2017-12-27 21:20 | Inpatient (IN) | payer BC, MEDICAID ==
[2017-12-27] MEDS: ALBUTEROL SULFATE 2.5 MG/3 ML NEBU. INH (21:30)
[2017-12-27] MEDS: IPRATRPIUM/ALBUTEROL 0.5/2.5MG 3 ML NEBU. NEB (21:30)
[2017-12-27 22:07] LABS: ADD MAN DIFF? NO
[2017-12-27 22:11] LABS: BASO % 0 % (0-3); EOS # 0.1 x10^3/uL (0.0-0.7); EOS % 1 % (0-3); HEMOGLOBIN 9.2 g/dL (12.0-15.5); LYMPH # 1.1 x10^3/uL (1.0-4.8); LYMPH % 10 % (24-48); MEAN CORPUSCULAR HEMOGLOBIN 31 pg (25-35); MEAN CORPUSCULAR HGB CONC 33 g/dL (31-37); MEAN CORPUSCULAR VOLUME 94 fL (79-100); MONO # 0.6 x10^3/uL (0.0-1.1); MONO % 6 % (0-9); NEUT # 8.7 x10^3uL (1.8-7.7); NEUT % 82 % (31-73); PLATELET COUNT 174 x10^3/uL (140-400); RED BLOOD COUNT 2.97 x10^6/uL (3.50-5.40); RED CELL DISTRIBUTION WIDTH 17.4 % (11.5-14.5); WHITE BLOOD COUNT 10.6 x10^3/uL (4.0-11.0)
[2017-12-27 22:20] LABS: INR 1.2 (0.8-1.1); PROTHROMBIN TIME PATIENT 14.6 SEC (11.7-14.0)
[2017-12-27 22:21] LABS: PARTIAL THROMBOPLASTIN TIME 38 SEC (24-38)
[2017-12-27 22:24] LABS: ANION GAP 13 (6-14); BLOOD UREA NITROGEN 48 mg/dL (7-20); BUN/CREATININE RATIO 13 (6-20); CARBON DIOXIDE 25 mmol/L (21-32); CHLORIDE 100 mmol/L (98-107); CREATININE 3.7 mg/dL (0.6-1.0); GFR 12.3; GLUCOSE 168 mg/dL (70-99); SODIUM 138 mmol/L (136-145)
[2017-12-27 22:28] LABS: ALBUMIN 2.9 g/dL (3.4-5.0); ALBUMIN/GLOBULIN RATIO 0.7 (1.0-1.7); ALK PHOS 121 U/L (46-116); ALT (SGPT) 10 U/L (14-59); AST (SGOT) 14 U/L (15-37); TOTAL BILIRUBIN 0.6 mg/dL (0.2-1.0); TOTAL PROTEIN 7.1 g/dL (6.4-8.2)
[2017-12-27 22:30] LABS: TROPONINI 0.026 ng/mL (0.000-0.055)
[2017-12-27 22:34] LABS: NT-PRO BNP > 35000 pg/mL (0-124)
[2017-12-27] MEDS: ALBUTEROL SULFATE 2.5 MG/3 ML NEBU. CONT NEB (22:45)
[2017-12-27] MEDS: methylPREDNISolone SOD SUCC PF 125 MG/2 ML VIAL. IV (23:07)
[2017-12-27] MEDS: ASPIRIN 325 MG TABLET PO (23:08)
[2017-12-27] MEDS ORDERED: ACETAMINOPHEN 325 MG TABLET. PO (23:15)
[2017-12-27] MEDS ORDERED: fentaNYL PF VIAL 100 MCG/2 ML VIAL IV (23:15)
[2017-12-27] MEDS ORDERED: ONDANSETRON PF 4 MG/2 ML VIAL. IV (23:15)
[2017-12-27] MEDS: FUROSEMIDE 40 MG/4 ML VIAL. IVP (23:30)
[2017-12-27 23:33] LABS: INFLUENZA A PATIENT NEGATIVE (NEGATIVE); INFLUENZA B PATIENT NEGATIVE (NEGATIVE); OBC FLU VALID
[2017-12-28] MEDS: FUROSEMIDE 40 MG/4 ML VIAL. IVP (04:44)
[2017-12-28 05:07] LABS: BASO % 0 % (0-3); EOS % 0 % (0-3); HEMATOCRIT 30.6 % (36.0-47.0); HEMOGLOBIN 9.6 g/dL (12.0-15.5); LYMPH # 0.5 x10^3/uL (1.0-4.8); LYMPH % 5 % (24-48); MEAN CORPUSCULAR HEMOGLOBIN 30 pg (25-35); MEAN CORPUSCULAR HGB CONC 31 g/dL (31-37); MEAN CORPUSCULAR VOLUME 95 fL (79-100); MONO # 0.1 x10^3/uL (0.0-1.1); MONO % 1 % (0-9); NEUT # 9.1 x10^3uL (1.8-7.7); NEUT % 93 % (31-73); PLATELET COUNT 179 x10^3/uL (140-400); RED BLOOD COUNT 3.21 x10^6/uL (3.50-5.40); RED CELL DISTRIBUTION WIDTH 17.8 % (11.5-14.5); WHITE BLOOD COUNT 9.8 x10^3/uL (4.0-11.0)
[2017-12-28 05:28] LABS: TROPONINI 0.027 ng/mL (0.000-0.055)
[2017-12-28 05:34] LABS: ADD MAN DIFF? YES
[2017-12-28 05:49] LABS: ANION GAP 13 (6-14); BLOOD UREA NITROGEN 50 mg/dL (7-20); CALCIUM 8.7 mg/dL (8.5-10.1); CARBON DIOXIDE 25 mmol/L (21-32); CHLORIDE 100 mmol/L (98-107); CREATININE 3.8 mg/dL (0.6-1.0); GFR 11.9; GLUCOSE 236 mg/dL (70-99); POTASSIUM 5.4 mmol/L (3.5-5.1); SODIUM 138 mmol/L (136-145)
[2017-12-28 05:57] LABS: TROPONINI 0.032 ng/mL (0.000-0.055)
[2017-12-28] MEDS: IPRATRPIUM/ALBUTEROL 0.5/2.5MG 3 ML NEBU. NEB ×4 (07:26→20:00)
[2017-12-28 08:38] LABS: POC GLUCOSE 257 mg/dL (70-99)
[2017-12-28] MEDS ORDERED: IV NORMAL SALINE 1000ML BAG 1,000 ML IV ×2 (08:57)
[2017-12-28] MEDS ORDERED: DIALYSIS PATIENT. MC ×2 (09:00)
[2017-12-28] MEDS ORDERED: 0.9 % SODIUM CHLORIDE 10 ML DISP.SYRIN. IV ×2 (09:00)
[2017-12-28 10:19] LABS: % BANDS 1 % (0-9); % LYMPHS 6 % (24-48); % MONOS 3 % (0-10); % SEGS 90 % (35-66)
[2017-12-28 10:20] LABS: ANISOCYTOSIS SLIGHT; PLT ESTIMATE ADEQUATE (ADEQUATE)
[2017-12-28] MEDS: CITALOPRAM 20 MG TABLET. PO (13:24)
[2017-12-28] MEDS: ASPIRIN CHEWABLE 81 MG TABLET. PO (13:24)
[2017-12-28] MEDS: PRASUGREL 10 MG TABLET. PO (13:25)
[2017-12-28] MEDS: LEVOTHYROXINE 150 MCG TABLET PO (13:25)
[2017-12-28] MEDS: LISINOPRIL 20 MG TABLET PO (13:25)
[2017-12-28] MEDS: NYSTATIN TOPICAL POWDER 15GM BOTTLE. TP ×2 (13:26→21:31)
[2017-12-28] MEDS: INSULIN ASPART 300 UNITS/3 ML INSULN.PEN SQ ×4 (13:32→21:29)
[2017-12-28 13:33] LABS: POC GLUCOSE 164 mg/dL (70-99)
[2017-12-28] MEDS: ALBUTEROL SULFATE 2.5 MG/3 ML NEBU. NEB ×2 (15:15→20:06)
[2017-12-28 17:33] LABS: POC GLUCOSE 222 mg/dL (70-99)
[2017-12-28] MEDS: CARVEDILOL 12.5 MG TABLET. PO (17:47)
[2017-12-28 21:03] LABS: POC GLUCOSE 239 mg/dL (70-99)
[2017-12-28] MEDS: SODIUM BICARBONATE 650 MG TABLET. PO (21:23)
[2017-12-28] MEDS: ATORVASTATIN CALCIUM 10 MG TABLET. PO (21:23)
[2017-12-28] MEDS: amLODIPine BESYLATE 10 MG TABLET PO (21:24)
[2017-12-28] MEDS: INSULIN DETEMIR 300 UNITS/3 ML INSULN.PEN. SQ (21:30)
[2017-12-29] MEDS: LEVOTHYROXINE 150 MCG TABLET PO (05:49)
[2017-12-29] MEDS: ALBUTEROL SULFATE 2.5 MG/3 ML NEBU. NEB ×2 (07:30→11:44)
[2017-12-29] MEDS: INSULIN ASPART 300 UNITS/3 ML INSULN.PEN SQ ×2 (07:30→08:00)
[2017-12-29 08:17] LABS: POC GLUCOSE 83 mg/dL (70-99)
[2017-12-29] MEDS: SODIUM BICARBONATE 650 MG TABLET. PO (08:52)
[2017-12-29] MEDS: PRASUGREL 10 MG TABLET. PO (08:52)
[2017-12-29] MEDS: CITALOPRAM 20 MG TABLET. PO (08:52)
[2017-12-29] MEDS: ASPIRIN CHEWABLE 81 MG TABLET. PO (08:52)
[2017-12-29] MEDS: LISINOPRIL 20 MG TABLET PO (08:53)
[2017-12-29] MEDS: NYSTATIN TOPICAL POWDER 15GM BOTTLE. TP (08:53)
[2017-12-29] MEDS: CARVEDILOL 12.5 MG TABLET. PO (08:53)
[2018-01-04] MEDS ORDERED: ERGOCALCIFEROL (VITAMIN D2) 50,000 UNIT CAPSULE. PO (09:00)
== END 2017-12-29 13:15 | disposition home or self-care (01) | DRG 291 ==
LOC: ER 21:20 → 2 NORTH 22:50
PROC: 5A1D70Z Performance of Urinary Filtration, Intermittent, Less than 6 Hours Per Day (ICD-10-PCS; principal; 2017-12-28)
DX: I13.2 Hypertensive heart and chronic kidney disease with heart failure and with stage 5 chronic kidney disease, or end stage renal disease (principal); I50.43 Acute on chronic combined systolic (congestive) and diastolic (congestive) heart failure; J96.21 Acute and chronic respiratory failure with hypoxia; E11.22 Type 2 diabetes mellitus with diabetic chronic kidney disease; N18.6 End stage renal disease; J44.1 Chronic obstructive pulmonary disease with (acute) exacerbation; D63.1 Anemia in chronic kidney disease; I42.9 Cardiomyopathy, unspecified; E11.69 Type 2 diabetes mellitus with other specified complication; E03.9 Hypothyroidism, unspecified; E78.00 Pure hypercholesterolemia, unspecified; E78.5 Hyperlipidemia, unspecified; F17.210 Nicotine dependence, cigarettes, uncomplicated; I25.10 Atherosclerotic heart disease of native coronary artery without angina pectoris; E21.3 Hyperparathyroidism, unspecified; F32.9 Major depressive disorder, single episode, unspecified; K21.9 Gastro-esophageal reflux disease without esophagitis; Z82.49 Family history of ischemic heart disease and other diseases of the circulatory system; Z82.5 Family history of asthma and other chronic lower respiratory diseases; Z83.3 Family history of diabetes mellitus; Z89.512 Acquired absence of left leg below knee; Z91.15 Patient's noncompliance with renal dialysis; Z99.2 Dependence on renal dialysis; Z90.49 Acquired absence of other specified parts of digestive tract; Z89.612 Acquired absence of left leg above knee; Z89.611 Acquired absence of right leg above knee
CPT/HCPCS: 36415; 71045; 80048; 80053; 82962; 83880; 84484; 85007; 85025; 85610; 85730; 87804; 87804-59; 93005; 94640; 94660; 94760; 96374; 96375; 99291; 99291-25; J0690; J1815; J1940; J2930; J7613; J7620

== ENCOUNTER 2018-01-04 15:15 | Inpatient (IN) | payer BC, MEDICAID ==
[~2018-01-04 15:15] MED LIST changes: +EPINEPHrine SYRINGE 1 MG/10 ML SYRINGE; -HYDROmorphone 2 MG/ML VIAL IV; -IV RINGERS,LACTATED 1000ML 1,000 ML IV; -LIDOCAINE 1% PF 2 ML VIAL. ID; -MIDAZOLAM HCL/PF 2 MG/2 ML VIAL.; -MORPHINE SULFATE 2 MG/ML DISP.SYRIN. IV; -PROCHLORPERAZINE 10 MG/2 ML VIAL. IV; -PROPOFOL 20 ML IV; -ceFAZolin 2GM PREMIX 2 GM/50 ML BAG IV; -fentaNYL PF VIAL 100 MCG/2 ML VIAL; -fentaNYL PF VIAL 100 MCG/2 ML VIAL IV
[2018-01-04 16:54] LABS: BASO # 0.1 x10^3/uL (0.0-0.2); BASO % 0 % (0-3); EOS % 0 % (0-3); HEMATOCRIT 29.6 % (36.0-47.0); HEMOGLOBIN 9.6 g/dL (12.0-15.5); LYMPH # 0.7 x10^3/uL (1.0-4.8); LYMPH % 3 % (24-48); MEAN CORPUSCULAR HEMOGLOBIN 30 pg (25-35); MEAN CORPUSCULAR HGB CONC 32 g/dL (31-37); MEAN CORPUSCULAR VOLUME 94 fL (79-100); MONO # 1.1 x10^3/uL (0.0-1.1); MONO % 5 % (0-9); NEUT # 19.8 x10^3uL (1.8-7.7); NEUT % 92 % (31-73); PLATELET COUNT 216 x10^3/uL (140-400); RED BLOOD COUNT 3.16 x10^6/uL (3.50-5.40); RED CELL DISTRIBUTION WIDTH 17.1 % (11.5-14.5); WHITE BLOOD COUNT 21.6 x10^3/uL (4.0-11.0)
[2018-01-04 16:55] LABS: ADD MAN DIFF? YES
[2018-01-04 17:10] LABS: ANION GAP 9 (6-14); BLOOD UREA NITROGEN 28 mg/dL (7-20); CALCIUM 8.2 mg/dL (8.5-10.1); CARBON DIOXIDE 27 mmol/L (21-32); CHLORIDE 100 mmol/L (98-107); CREATININE 3.1 mg/dL (0.6-1.0); GFR 15.1; GLUCOSE 154 mg/dL (70-99); SODIUM 136 mmol/L (136-145)
[2018-01-04 17:16] LABS: ALBUMIN 2.5 g/dL (3.4-5.0); ALK PHOS 89 U/L (46-116); ALT (SGPT) 9 U/L (14-59); AST (SGOT) 10 U/L (15-37); DIRECT BILIRUBIN 0.4 mg/dL (0.0-0.2); LIPASE 53 U/L (73-393); TOTAL BILIRUBIN 0.9 mg/dL (0.2-1.0); TOTAL PROTEIN 6.5 g/dL (6.4-8.2)
[2018-01-04 17:17] LABS: TROPONINI 0.031 ng/mL (0.000-0.055)
[2018-01-04 17:53] LABS: % LYMPHS 3 % (24-48); % MONOS 1 % (0-10); % SEGS 96 % (35-66)
[2018-01-04 17:54] LABS: OVALOCYTES OCC; PLT ESTIMATE ADEQUATE (ADEQUATE); POLYCHROMASIA SLIGHT; SCHISTOCYTES OCC
[2018-01-04] MEDS ORDERED: PIP/TAZO PER PHARMACY MC (18:30)
[2018-01-04 18:50] LABS: NT-PRO BNP > 35000 pg/mL (0-124)
[2018-01-04] MEDS: PIPERACILLIN/TAZOBACTAM 2.25 GM in IV NORMAL SALINE 50ML 50 ML IV (18:50)
[2018-01-04] MEDS ORDERED: IV NORMAL SALINE 1000ML BAG 1,000 ML IV (18:56)
[2018-01-04] MEDS ORDERED: ONDANSETRON PF 4 MG/2 ML VIAL. IV (19:00)
[2018-01-04] MEDS: VANCOMYCIN 2 GM in IV 1/2 NORMAL SALINE 500 ML IV (19:25)
[2018-01-04] MEDS: IV NORMAL SALINE 500ML BAG 500 ML IV (19:25)
[2018-01-04 20:11] LABS: LACTIC ACID 1.8 mmol/L (0.4-2.0)
[2018-01-04] MEDS: VANCOMYCIN PER PHARMACY MC (20:58)
[2018-01-04 21:26] LABS: BASE EXCESS ABG -9 mmol/L (-3-3); HCO3 ABG 15 mmol/L (21-28); PCO2 ABG 29 mmHg (35-46); PH ABG 7.34 (7.35-7.45); SAT O2 ABG 81 % (92-99)
[2018-01-04 21:27] LABS: FIO2 ABG 100; PO2 ABG 49 mmHg (65-108)
[2018-01-04] MEDS ORDERED: CONTRAST GIVEN MC (21:30)
[2018-01-04 21:45] LABS: BASE EXCESS ABG -2 mmol/L (-3-3); HCO3 ABG 23 mmol/L (21-28); PCO2 ABG 36 mmHg (35-46); PH ABG 7.41 (7.35-7.45); PO2 ABG 457 mmHg (65-108); SAT O2 ABG 99 % (92-99)
[2018-01-04] MEDS: IOHEXOL 300 MG/ML 100ML VIAL. IV (22:58)
[2018-01-05 05:31] LABS: ADD MAN DIFF? NO
[2018-01-05 05:44] LABS: BASO % 0 % (0-3); EOS % 0 % (0-3); HEMOGLOBIN 8.2 g/dL (12.0-15.5); LYMPH # 0.1 x10^3/uL (1.0-4.8); LYMPH % 1 % (24-48); MEAN CORPUSCULAR HEMOGLOBIN 29 pg (25-35); MEAN CORPUSCULAR HGB CONC 32 g/dL (31-37); MEAN CORPUSCULAR VOLUME 93 fL (79-100); MONO # 0.4 x10^3/uL (0.0-1.1); MONO % 2 % (0-9); NEUT # 16.3 x10^3uL (1.8-7.7); NEUT % 97 % (31-73); PLATELET COUNT 178 x10^3/uL (140-400); WHITE BLOOD COUNT 16.8 x10^3/uL (4.0-11.0)
[2018-01-05 05:57] LABS: ANION GAP 9 (6-14); BLOOD UREA NITROGEN 34 mg/dL (7-20); CARBON DIOXIDE 28 mmol/L (21-32); CHLORIDE 101 mmol/L (98-107); CREATININE 3.6 mg/dL (0.6-1.0); GFR 12.7; GLUCOSE 134 mg/dL (70-99); POTASSIUM 3.6 mmol/L (3.5-5.1); SODIUM 138 mmol/L (136-145)
[2018-01-05] MEDS ORDERED: PIPERACILLIN/TAZOBACTAM 2.25 GM in IV NORMAL SALINE 50ML 50 ML IV (06:00)
[2018-01-05] MEDS ORDERED: VANCOMYCIN RANDOM LEVEL. MC (06:00)
[2018-01-05 07:50] LABS: INR 1.4 (0.8-1.1); PROTHROMBIN TIME PATIENT 16.3 SEC (11.7-14.0)
[2018-01-05 07:51] LABS: PARTIAL THROMBOPLASTIN TIME 49 SEC (24-38)
[2018-01-05] MEDS: IPRATRPIUM/ALBUTEROL 0.5/2.5MG 3 ML NEBU. NEB (07:53)
[2018-01-05 08:28] LABS: LACTIC ACID 2.2 mmol/L (0.4-2.0)
[2018-01-05] MEDS: IV RINGERS,LACTATED 1000ML 1,000 ML IV (10:02)
[2018-01-05] MEDS ORDERED: LIDOCAINE 1% PF 2 ML VIAL. ID (10:15)
[2018-01-05] MEDS ORDERED: MORPHINE SULFATE 4 MG/ML DISP.SYRIN. IV (10:15)
[2018-01-05] MEDS ORDERED: PROCHLORPERAZINE 10 MG/2 ML VIAL. IV (10:15)
[2018-01-05] MEDS ORDERED: LINEZOLID 600 MG TABLET PO (10:30)
[2018-01-05] MEDS: PIPERACILLIN/TAZOBACTAM 2.25 GM in IV NORMAL SALINE 50ML 50 ML IV ×3 (10:35→23:08)
[2018-01-05] MEDS ORDERED: LIDOCAINE 1% PF 30 ML VIAL. (12:05)
[2018-01-05] MEDS ORDERED: silver sulfADIAZINE 1% CREAM 25GM TUBE. TP (12:05)
[2018-01-05] MEDS ORDERED: DEXAMETHASONE SOD PHOS 20 MG/5 ML VIAL. (12:12)
[2018-01-05] MEDS ORDERED: LIDOCAINE 1% PF 5 ML VIAL. (12:12)
[2018-01-05] MEDS ORDERED: PROPOFOL 20 ML IV ×2 (12:12→14:09)
[2018-01-05] MEDS ORDERED: ONDANSETRON PF 4 MG/2 ML VIAL. (12:13)
[2018-01-05] MEDS ORDERED: fentaNYL PF VIAL 100 MCG/2 ML VIAL (12:13)
[2018-01-05] MEDS: ALBUTEROL SULFATE 2.5 MG/3 ML NEBU. NEB ×3 (13:23→19:15)
[2018-01-05] MEDS: LISINOPRIL 20 MG TABLET PO (13:30)
[2018-01-05] MEDS: SODIUM BICARBONATE 650 MG TABLET. PO ×2 (13:30→20:46)
[2018-01-05] MEDS: NYSTATIN TOPICAL POWDER 15GM BOTTLE. TP ×2 (13:30→20:46)
[2018-01-05] MEDS: CITALOPRAM 20 MG TABLET. PO (13:30)
[2018-01-05] MEDS: LEVOTHYROXINE 150 MCG TABLET PO (13:30)
[2018-01-05] MEDS ORDERED: SUCCINYLCHOLINE 200 MG/10 ML VIAL. (14:15)
[2018-01-05] MEDS: silver sulfADIAZINE 1% CREAM 25GM TUBE. TP (16:00)
[2018-01-05] MEDS: MORPHINE SULFATE 4 MG/ML DISP.SYRIN. IV (16:08)
[2018-01-05] MEDS: oxyCODONE/APAP 5/325 1 TAB TABLET PO (16:09)
[2018-01-05] MEDS: INSULIN ASPART 300 UNITS/3 ML INSULN.PEN SQ (17:00)
[2018-01-05] MEDS: CARVEDILOL 12.5 MG TABLET. PO ×2 (17:00→17:25)
[2018-01-05 17:45] LABS: POC GLUCOSE 106 mg/dL (70-99)
[2018-01-05] MEDS: IV NORMAL SALINE 1000ML BAG 1,000 ML IV (19:51)
[2018-01-05 20:08] LABS: MRSA BY PCR Positive (Negative)
[2018-01-05] MEDS: amLODIPine BESYLATE 10 MG TABLET PO (20:35)
[2018-01-05] MEDS: ATORVASTATIN CALCIUM 10 MG TABLET. PO (20:46)
[2018-01-05] MEDS: INSULIN DETEMIR 300 UNITS/3 ML INSULN.PEN. SQ (20:47)
[2018-01-05 22:28] LABS: MEAN CORPUSCULAR HEMOGLOBIN 30 pg (25-35); MEAN CORPUSCULAR HGB CONC 32 g/dL (31-37); MEAN CORPUSCULAR VOLUME 95 fL (79-100); PLATELET COUNT 133 x10^3/uL (140-400); RED BLOOD COUNT 1.99 x10^6/uL (3.50-5.40); RED CELL DISTRIBUTION WIDTH 16.9 % (11.5-14.5); WHITE BLOOD COUNT 11.5 x10^3/uL (4.0-11.0)
[2018-01-05 22:32] LABS: HEMATOCRIT 18.9 % (36.0-47.0)
[2018-01-05] MEDS: IV NORMAL SALINE 500ML BAG 500 ML IV (23:00)
[2018-01-06] MEDS ORDERED: NOREPINEPHRIN PREMIX 250 ML IV (00:03)
[2018-01-06] MEDS: NOREPINEPHRIN PREMIX 250 ML IV (00:09)
[2018-01-06] MEDS ORDERED: PROPOFOL 100 ML IV (00:18)
[2018-01-06] MEDS: PROPOFOL 100 ML IV ×4 (00:34→21:54)
[2018-01-06 00:40] LABS: BASE EXCESS ABG -8 mmol/L (-3-3); HCO3 ABG 22 mmol/L (21-28); PO2 ABG 75 mmHg (65-108); SAT O2 ABG 89 % (92-99)
[2018-01-06 00:42] LABS: PCO2 ABG 73 mmHg (35-46); PH ABG 7.09 (7.35-7.45)
[2018-01-06 00:43] LABS: FIO2 ABG 100
[2018-01-06 00:58] LABS: ANION GAP 15 (6-14); BLOOD UREA NITROGEN 45 mg/dL (7-20); CALCIUM 7.2 mg/dL (8.5-10.1); CARBON DIOXIDE 20 mmol/L (21-32); CHLORIDE 98 mmol/L (98-107); CREATININE 4.3 mg/dL (0.6-1.0); GFR 10.3; GLUCOSE 285 mg/dL (70-99); POTASSIUM 4.3 mmol/L (3.5-5.1); SODIUM 133 mmol/L (136-145)
[2018-01-06 01:01] LABS: POC GLUCOSE 270 mg/dL (70-99)
[2018-01-06 01:12] LABS: BASE EXCESS ABG -7 mmol/L (-3-3); HCO3 ABG 21 mmol/L (21-28); PCO2 ABG 52 mmHg (35-46); PO2 ABG 310 mmHg (65-108); SAT O2 ABG 100 % (92-99)
[2018-01-06 01:13] LABS: PH ABG 7.22 (7.35-7.45)
[2018-01-06] MEDS ORDERED: ETOMIDATE 20 MG/10 ML VIAL. IV (01:17)
[2018-01-06] MEDS ORDERED: ROCURONIUM 50 MG/5 ML VIAL. (01:18)
[2018-01-06 01:26] LABS: FIO2 ABG 100
[2018-01-06 01:43] LABS: CROSSMATCH AHG 1 1
[2018-01-06 04:28] LABS: HEMATOCRIT 24.5 % (36.0-47.0); HEMOGLOBIN 7.9 g/dL (12.0-15.5); MEAN CORPUSCULAR HEMOGLOBIN 30 pg (25-35); MEAN CORPUSCULAR HGB CONC 32 g/dL (31-37); MEAN CORPUSCULAR VOLUME 93 fL (79-100); PLATELET COUNT 79 x10^3/uL (140-400); RED BLOOD COUNT 2.63 x10^6/uL (3.50-5.40); WHITE BLOOD COUNT 17.1 x10^3/uL (4.0-11.0)
[2018-01-06] MEDS: PIPERACILLIN/TAZOBACTAM 2.25 GM in IV NORMAL SALINE 50ML 50 ML IV ×3 (05:36→22:34)
[2018-01-06 05:42] LABS: POC GLUCOSE 159 mg/dL (70-99)
[2018-01-06 05:58] LABS: POC GLUCOSE 156 mg/dL (70-99)
[2018-01-06] MEDS: INSULIN ASPART 300 UNITS/3 ML INSULN.PEN SQ ×3 (08:00→17:00)
[2018-01-06] MEDS: CARVEDILOL 12.5 MG TABLET. PO ×2 (08:00→17:00)
[2018-01-06] MEDS: LISINOPRIL 20 MG TABLET PO (09:00)
[2018-01-06] MEDS: ALBUTEROL SULFATE 2.5 MG/3 ML NEBU. NEB ×4 (09:11→20:03)
[2018-01-06 09:27] LABS: BASE EXCESS ABG -1 mmol/L (-3-3); HCO3 ABG 24 mmol/L (21-28); PCO2 ABG 36 mmHg (35-46); PH ABG 7.44 (7.35-7.45); PO2 ABG 69 mmHg (65-108); SAT O2 ABG 93 % (92-99)
[2018-01-06] MEDS: SODIUM BICARBONATE 650 MG TABLET. PO ×2 (09:46→21:28)
[2018-01-06] MEDS: LACTOBACILLUS RHAMNOSUS GG 1 CAPSULE. PO ×2 (09:46→21:28)
[2018-01-06] MEDS: CITALOPRAM 20 MG TABLET. PO (09:46)
[2018-01-06] MEDS: LEVOTHYROXINE 150 MCG TABLET PO (09:46)
[2018-01-06] MEDS: NYSTATIN TOPICAL POWDER 15GM BOTTLE. TP ×2 (09:47→21:28)
[2018-01-06] MEDS: ASPIRIN CHEWABLE 81 MG TABLET. PO (09:56)
[2018-01-06 10:10] LABS: FIO2 ABG 50
[2018-01-06] MEDS ORDERED: IV NORMAL SALINE 1000ML BAG 1,000 ML IV ×2 (10:36→10:45)
[2018-01-06] MEDS ORDERED: ALBUMIN HUMAN 25% 200 ML IV (10:45)
[2018-01-06] MEDS ORDERED: diphenhydrAMINE 50 MG/ML VIAL IV ×2 (10:45)
[2018-01-06] MEDS ORDERED: 0.9 % SODIUM CHLORIDE 10 ML DISP.SYRIN. IV ×2 (10:45)
[2018-01-06] MEDS ORDERED: DIALYSIS PATIENT. MC (10:45)
[2018-01-06 10:50] LABS: INR 1.3 (0.8-1.1); PROTHROMBIN TIME PATIENT 15.7 SEC (11.7-14.0)
[2018-01-06 14:04] LABS: POC GLUCOSE 116 mg/dL (70-99)
[2018-01-06] MEDS: silver sulfADIAZINE 1% CREAM 25GM TUBE. TP ×2 (14:04→21:28)
[2018-01-06 17:52] LABS: POC GLUCOSE 123 mg/dL (70-99)
[2018-01-06] MEDS: INSULIN DETEMIR 300 UNITS/3 ML INSULN.PEN. SQ (21:00)
[2018-01-06] MEDS: amLODIPine BESYLATE 10 MG TABLET PO (21:00)
[2018-01-06] MEDS: ATORVASTATIN CALCIUM 10 MG TABLET. PO (21:28)
[2018-01-06 21:40] LABS: POC GLUCOSE 118 mg/dL (70-99)
[2018-01-07] MEDS: oxyCODONE/APAP 5/325 1 TAB TABLET PO ×2 (00:20→21:27)
[2018-01-07] MEDS: PROPOFOL 100 ML IV ×2 (03:16→06:11)
[2018-01-07] MEDS: PIPERACILLIN/TAZOBACTAM 2.25 GM in IV NORMAL SALINE 50ML 50 ML IV ×3 (06:08→22:49)
[2018-01-07 06:18] LABS: ADD MAN DIFF? NO
[2018-01-07 06:26] LABS: BASO % 0 % (0-3); EOS % 5 % (0-3); HEMATOCRIT 21.9 % (36.0-47.0); HEMOGLOBIN 7.3 g/dL (12.0-15.5); LYMPH # 0.6 x10^3/uL (1.0-4.8); LYMPH % 3 % (24-48); MEAN CORPUSCULAR HEMOGLOBIN 30 pg (25-35); MEAN CORPUSCULAR HGB CONC 33 g/dL (31-37); MEAN CORPUSCULAR VOLUME 91 fL (79-100); MONO # 0.3 x10^3/uL (0.0-1.1); MONO % 2 % (0-9); NEUT # 16.8 x10^3uL (1.8-7.7); NEUT % 90 % (31-73); PLATELET COUNT 61 x10^3/uL (140-400); RED CELL DISTRIBUTION WIDTH 15.8 % (11.5-14.5); WHITE BLOOD COUNT 18.8 x10^3/uL (4.0-11.0)
[2018-01-07 06:33] LABS: ANION GAP 5 (6-14); BLOOD UREA NITROGEN 37 mg/dL (7-20); CALCIUM 7.6 mg/dL (8.5-10.1); CARBON DIOXIDE 31 mmol/L (21-32); CHLORIDE 98 mmol/L (98-107); CREATININE 2.9 mg/dL (0.6-1.0); GFR 16.3; GLUCOSE 113 mg/dL (70-99); POTASSIUM 3.3 mmol/L (3.5-5.1); SODIUM 134 mmol/L (136-145)
[2018-01-07] MEDS: INSULIN ASPART 300 UNITS/3 ML INSULN.PEN SQ ×3 (08:00→18:16)
[2018-01-07] MEDS: CARVEDILOL 12.5 MG TABLET. PO ×2 (08:00→18:20)
[2018-01-07] MEDS: LACTOBACILLUS RHAMNOSUS GG 1 CAPSULE. PO ×2 (08:10→21:27)
[2018-01-07] MEDS: CITALOPRAM 20 MG TABLET. PO (08:11)
[2018-01-07] MEDS: SODIUM BICARBONATE 650 MG TABLET. PO ×2 (08:11→21:27)
[2018-01-07] MEDS: ASPIRIN CHEWABLE 81 MG TABLET. PO (08:11)
[2018-01-07 08:19] LABS: POC GLUCOSE 111 mg/dL (70-99)
[2018-01-07] MEDS: LEVOTHYROXINE 150 MCG TABLET PO (08:19)
[2018-01-07] MEDS: ALBUTEROL SULFATE 2.5 MG/3 ML NEBU. NEB ×4 (08:50→19:24)
[2018-01-07] MEDS: LISINOPRIL 20 MG TABLET PO (09:00)
[2018-01-07 09:10] LABS: BASE EXCESS ABG 1 mmol/L (-3-3); HCO3 ABG 25 mmol/L (21-28); PCO2 ABG 37 mmHg (35-46); PH ABG 7.46 (7.35-7.45); PO2 ABG 138 mmHg (65-108); SAT O2 ABG 98 % (92-99)
[2018-01-07 09:12] LABS: FIO2 ABG 50
[2018-01-07 12:35] LABS: POC GLUCOSE 134 mg/dL (70-99)
[2018-01-07] MEDS: fentaNYL PF VIAL 100 MCG/2 ML VIAL IV (13:58)
[2018-01-07] MEDS: NYSTATIN TOPICAL POWDER 15GM BOTTLE. TP ×2 (13:58→21:27)
[2018-01-07] MEDS ORDERED: IV NORMAL SALINE 1000ML BAG 1,000 ML IV ×2 (14:03)
[2018-01-07] MEDS ORDERED: DIALYSIS PATIENT. MC ×2 (14:15)
[2018-01-07 15:29] LABS: HEP B SURFACE ABDY Non Reactive (.); HEP B SURFACE AG Negative (Negative)
[2018-01-07] MEDS: silver sulfADIAZINE 1% CREAM 25GM TUBE. TP ×2 (17:55→21:29)
[2018-01-07 18:19] LABS: POC GLUCOSE 96 mg/dL (70-99)
[2018-01-07] MEDS: NOREPINEPHRIN PREMIX 250 ML IV (20:17)
[2018-01-07] MEDS: amLODIPine BESYLATE 10 MG TABLET PO (21:00)
[2018-01-07] MEDS: INSULIN DETEMIR 300 UNITS/3 ML INSULN.PEN. SQ (21:00)
[2018-01-07 21:26] LABS: POC GLUCOSE 101 mg/dL (70-99)
[2018-01-07] MEDS: ATORVASTATIN CALCIUM 10 MG TABLET. PO (21:27)
[2018-01-08 05:50] LABS: ADD MAN DIFF? NO
[2018-01-08 05:55] LABS: BASO # 0.1 x10^3/uL (0.0-0.2); BASO % 1 % (0-3); EOS # 0.7 x10^3/uL (0.0-0.7); EOS % 4 % (0-3); LYMPH # 0.9 x10^3/uL (1.0-4.8); LYMPH % 5 % (24-48); MEAN CORPUSCULAR HEMOGLOBIN 29 pg (25-35); MEAN CORPUSCULAR HGB CONC 32 g/dL (31-37); MEAN CORPUSCULAR VOLUME 92 fL (79-100); MONO # 0.5 x10^3/uL (0.0-1.1); MONO % 3 % (0-9); NEUT # 15.3 x10^3uL (1.8-7.7); NEUT % 88 % (31-73); PLATELET COUNT 65 x10^3/uL (140-400); RED BLOOD COUNT 2.05 x10^6/uL (3.50-5.40); RED CELL DISTRIBUTION WIDTH 16.1 % (11.5-14.5); WHITE BLOOD COUNT 17.5 x10^3/uL (4.0-11.0)
[2018-01-08 06:00] LABS: HEMATOCRIT 18.8 % (36.0-47.0)
[2018-01-08] MEDS: PIPERACILLIN/TAZOBACTAM 2.25 GM in IV NORMAL SALINE 50ML 50 ML IV ×3 (06:15→22:34)
[2018-01-08 06:18] LABS: ANION GAP 6 (6-14); BLOOD UREA NITROGEN 28 mg/dL (7-20); CALCIUM 7.8 mg/dL (8.5-10.1); CARBON DIOXIDE 30 mmol/L (21-32); CHLORIDE 100 mmol/L (98-107); CREATININE 2.4 mg/dL (0.6-1.0); GFR 20.3; GLUCOSE 176 mg/dL (70-99); POTASSIUM 4.1 mmol/L (3.5-5.1); SODIUM 136 mmol/L (136-145)
[2018-01-08 07:34] LABS: POC GLUCOSE 145 mg/dL (70-99)
[2018-01-08] MEDS: ALBUTEROL SULFATE 2.5 MG/3 ML NEBU. NEB ×4 (07:43→19:30)
[2018-01-08] MEDS: CARVEDILOL 12.5 MG TABLET. PO (08:00)
[2018-01-08] MEDS: INSULIN ASPART 300 UNITS/3 ML INSULN.PEN SQ ×3 (08:00→17:00)
[2018-01-08] MEDS: LISINOPRIL 20 MG TABLET PO (09:00)
[2018-01-08] MEDS: LEVOTHYROXINE 150 MCG TABLET PO (09:26)
[2018-01-08] MEDS: CITALOPRAM 20 MG TABLET. PO (09:26)
[2018-01-08] MEDS: LACTOBACILLUS RHAMNOSUS GG 1 CAPSULE. PO ×2 (09:26→21:00)
[2018-01-08] MEDS: SODIUM BICARBONATE 650 MG TABLET. PO ×2 (09:26→21:00)
[2018-01-08] MEDS: ASPIRIN CHEWABLE 81 MG TABLET. PO (09:26)
[2018-01-08] MEDS: oxyCODONE/APAP 5/325 1 TAB TABLET PO (09:27)
[2018-01-08] MEDS: silver sulfADIAZINE 1% CREAM 25GM TUBE. TP ×2 (09:33→21:25)
[2018-01-08] MEDS: NYSTATIN TOPICAL POWDER 15GM BOTTLE. TP ×2 (09:33→21:26)
[2018-01-08 13:14] LABS: POC GLUCOSE 160 mg/dL (70-99)
[2018-01-08 16:10] LABS: MEAN CORPUSCULAR HEMOGLOBIN 30 pg (25-35); MEAN CORPUSCULAR HGB CONC 33 g/dL (31-37); MEAN CORPUSCULAR VOLUME 92 fL (79-100); PLATELET COUNT 64 x10^3/uL (140-400); RED BLOOD COUNT 2.06 x10^6/uL (3.50-5.40); RED CELL DISTRIBUTION WIDTH 15.7 % (11.5-14.5); WHITE BLOOD COUNT 17.9 x10^3/uL (4.0-11.0)
[2018-01-08 16:31] LABS: HEMATOCRIT 18.9 % (36.0-47.0); HEMOGLOBIN 6.2 g/dL (12.0-15.5)
[2018-01-08] MEDS: NOREPINEPHRIN PREMIX 250 ML IV (18:11)
[2018-01-08 18:19] LABS: POC GLUCOSE 152 mg/dL (70-99)
[2018-01-08 19:11] LABS: LACTATE DEHYDROGENASE 432 U/L (81-234)
[2018-01-08] MEDS: amLODIPine BESYLATE 10 MG TABLET PO (21:00)
[2018-01-08] MEDS: ATORVASTATIN CALCIUM 10 MG TABLET. PO (21:00)
[2018-01-08] MEDS: INSULIN DETEMIR 300 UNITS/3 ML INSULN.PEN. SQ (21:00)
[2018-01-08 21:37] LABS: POC GLUCOSE 141 mg/dL (70-99)
[2018-01-09] MEDS: PIPERACILLIN/TAZOBACTAM 2.25 GM in IV NORMAL SALINE 50ML 50 ML IV (05:41)
[2018-01-09 05:44] LABS: ADD MAN DIFF? NO
[2018-01-09 05:52] LABS: BASO # 0.1 x10^3/uL (0.0-0.2); BASO % 1 % (0-3); EOS # 0.3 x10^3/uL (0.0-0.7); EOS % 2 % (0-3); LYMPH # 1.1 x10^3/uL (1.0-4.8); LYMPH % 6 % (24-48); MEAN CORPUSCULAR HEMOGLOBIN 30 pg (25-35); MEAN CORPUSCULAR HGB CONC 34 g/dL (31-37); MEAN CORPUSCULAR VOLUME 90 fL (79-100); MONO # 0.8 x10^3/uL (0.0-1.1); MONO % 4 % (0-9); NEUT # 15.5 x10^3uL (1.8-7.7); NEUT % 87 % (31-73); PLATELET COUNT 65 x10^3/uL (140-400); RED BLOOD COUNT 2.26 x10^6/uL (3.50-5.40); RED CELL DISTRIBUTION WIDTH 15.7 % (11.5-14.5); WHITE BLOOD COUNT 17.8 x10^3/uL (4.0-11.0)
[2018-01-09 05:56] LABS: ANION GAP 8 (6-14); CALCIUM 7.8 mg/dL (8.5-10.1); CARBON DIOXIDE 26 mmol/L (21-32); CHLORIDE 100 mmol/L (98-107); CREATININE 3.5 mg/dL (0.6-1.0); GFR 13.1; GLUCOSE 191 mg/dL (70-99); POTASSIUM 4.8 mmol/L (3.5-5.1); SODIUM 134 mmol/L (136-145)
[2018-01-09 06:00] LABS: HEMOGLOBIN 6.8 g/dL (12.0-15.5)
[2018-01-09 06:01] LABS: HEMATOCRIT 20.4 % (36.0-47.0)
[2018-01-09 06:10] LABS: BLOOD UREA NITROGEN 50 mg/dL (7-20)
[2018-01-09] MEDS: ALBUTEROL SULFATE 2.5 MG/3 ML NEBU. NEB ×4 (07:18→19:52)
[2018-01-09] MEDS: cefTRIAXone IV Push 1 GM VIAL. IVP (08:51)
[2018-01-09] MEDS: LEVOTHYROXINE 150 MCG TABLET PO (08:52)
[2018-01-09] MEDS: CITALOPRAM 20 MG TABLET. PO (08:52)
[2018-01-09] MEDS: LACTOBACILLUS RHAMNOSUS GG 1 CAPSULE. PO ×2 (08:52→22:16)
[2018-01-09] MEDS: ASPIRIN CHEWABLE 81 MG TABLET. PO (08:52)
[2018-01-09] MEDS: metroNIDAZOLE 500 MG TABLET PO ×2 (08:52→22:16)
[2018-01-09] MEDS: INSULIN ASPART 300 UNITS/3 ML INSULN.PEN SQ ×3 (08:58→18:00)
[2018-01-09] MEDS: silver sulfADIAZINE 1% CREAM 25GM TUBE. TP ×2 (09:05→22:17)
[2018-01-09] MEDS: NYSTATIN TOPICAL POWDER 15GM BOTTLE. TP ×2 (09:05→22:17)
[2018-01-09] MEDS: SODIUM BICARBONATE 650 MG TABLET. PO ×2 (09:07→22:16)
[2018-01-09 13:28] LABS: FECAL OB PT NEGATIVE (NEG); NEG OBC FOB NEG; POS OBC FOB POS
[2018-01-09] MEDS: PANTOPRAZOLE 40 MG TABLET.DR. PO (13:38)
[2018-01-09 13:44] LABS: POC GLUCOSE 164 mg/dL (70-99)
[2018-01-09 15:15] LABS: HEMATOCRIT 22.2 % (36.0-47.0); HEMOGLOBIN 7.5 g/dL (12.0-15.5); MEAN CORPUSCULAR HEMOGLOBIN 31 pg (25-35); MEAN CORPUSCULAR HGB CONC 34 g/dL (31-37); MEAN CORPUSCULAR VOLUME 90 fL (79-100); PLATELET COUNT 62 x10^3/uL (140-400); RED BLOOD COUNT 2.47 x10^6/uL (3.50-5.40); RED CELL DISTRIBUTION WIDTH 15.7 % (11.5-14.5)
[2018-01-09 17:23] LABS: POC GLUCOSE 136 mg/dL (70-99)
[2018-01-09] MEDS: oxyCODONE/APAP 5/325 1 TAB TABLET PO ×2 (19:14→23:37)
[2018-01-09] MEDS ORDERED: IV NORMAL SALINE 1000ML BAG 1,000 ML IV ×2 (19:24)
[2018-01-09] MEDS ORDERED: diphenhydrAMINE 50 MG/ML VIAL IV ×2 (19:30)
[2018-01-09] MEDS ORDERED: DIALYSIS PATIENT. MC (19:30)
[2018-01-09] MEDS: INSULIN DETEMIR 300 UNITS/3 ML INSULN.PEN. SQ (21:00)
[2018-01-09] MEDS: amLODIPine BESYLATE 10 MG TABLET PO (21:00)
[2018-01-09] MEDS: ATORVASTATIN CALCIUM 10 MG TABLET. PO (22:16)
[2018-01-09] MEDS: HEPARIN PF for SUB-Q USE 5,000 UNIT/0.5 ML VIAL. SQ (22:17)
[2018-01-10 06:23] LABS: ADD MAN DIFF? NO
[2018-01-10] MEDS: HEPARIN PF for SUB-Q USE 5,000 UNIT/0.5 ML VIAL. SQ ×3 (06:24→22:00)
[2018-01-10] MEDS: oxyCODONE/APAP 5/325 1 TAB TABLET PO ×2 (06:25→20:58)
[2018-01-10 06:30] LABS: BASO % 0 % (0-3); EOS # 0.4 x10^3/uL (0.0-0.7); EOS % 4 % (0-3); HEMOGLOBIN 7.1 g/dL (12.0-15.5); LYMPH # 0.8 x10^3/uL (1.0-4.8); LYMPH % 8 % (24-48); MEAN CORPUSCULAR HEMOGLOBIN 31 pg (25-35); MEAN CORPUSCULAR HGB CONC 35 g/dL (31-37); MEAN CORPUSCULAR VOLUME 89 fL (79-100); MONO # 0.5 x10^3/uL (0.0-1.1); MONO % 5 % (0-9); NEUT # 7.8 x10^3uL (1.8-7.7); NEUT % 82 % (31-73); PLATELET COUNT 58 x10^3/uL (140-400); RED BLOOD COUNT 2.29 x10^6/uL (3.50-5.40); RED CELL DISTRIBUTION WIDTH 15.2 % (11.5-14.5); WHITE BLOOD COUNT 9.6 x10^3/uL (4.0-11.0)
[2018-01-10 06:37] LABS: ANION GAP 4 (6-14); BLOOD UREA NITROGEN 40 mg/dL (7-20); CALCIUM 7.8 mg/dL (8.5-10.1); CARBON DIOXIDE 31 mmol/L (21-32); CHLORIDE 101 mmol/L (98-107); CREATININE 2.7 mg/dL (0.6-1.0); GFR 17.7; GLUCOSE 123 mg/dL (70-99); SODIUM 136 mmol/L (136-145)
[2018-01-10 06:38] LABS: POTASSIUM 4.2 mmol/L (3.5-5.1)
[2018-01-10 06:47] LABS: HEMATOCRIT 20.5 % (36.0-47.0)
[2018-01-10] MEDS: ALBUTEROL SULFATE 2.5 MG/3 ML NEBU. NEB ×4 (07:53→19:38)
[2018-01-10] MEDS: INSULIN ASPART 300 UNITS/3 ML INSULN.PEN SQ ×3 (08:00→17:44)
[2018-01-10] MEDS: SODIUM BICARBONATE 650 MG TABLET. PO ×2 (08:50→20:58)
[2018-01-10] MEDS: LACTOBACILLUS RHAMNOSUS GG 1 CAPSULE. PO ×2 (08:50→20:58)
[2018-01-10] MEDS: metroNIDAZOLE 500 MG TABLET PO ×2 (08:50→20:58)
[2018-01-10] MEDS: NYSTATIN TOPICAL POWDER 15GM BOTTLE. TP ×2 (08:50→20:59)
[2018-01-10] MEDS: ASPIRIN CHEWABLE 81 MG TABLET. PO (08:50)
[2018-01-10] MEDS: CITALOPRAM 20 MG TABLET. PO (08:50)
[2018-01-10] MEDS: silver sulfADIAZINE 1% CREAM 25GM TUBE. TP ×2 (08:51→20:59)
[2018-01-10] MEDS: PANTOPRAZOLE 40 MG TABLET.DR. PO (08:52)
[2018-01-10] MEDS: LEVOTHYROXINE 150 MCG TABLET PO (08:52)
[2018-01-10] MEDS: cefTRIAXone IV Push 1 GM VIAL. IVP (08:53)
[2018-01-10 09:05] LABS: PATHOLOGY REVIEW SEE SEPARATE REPORT
[2018-01-10 17:36] LABS: POC GLUCOSE 156 mg/dL (70-99)
[2018-01-10 20:32] LABS: POC GLUCOSE 171 mg/dL (70-99)
[2018-01-10] MEDS: amLODIPine BESYLATE 10 MG TABLET PO (20:58)
[2018-01-10] MEDS: ATORVASTATIN CALCIUM 10 MG TABLET. PO (20:58)
[2018-01-10] MEDS: DARBEPOETIN ALFA 60 MCG/0.3 ML DISP.SYRIN. SQ (20:59)
[2018-01-10] MEDS: INSULIN DETEMIR 300 UNITS/3 ML INSULN.PEN. SQ (20:59)
[2018-01-10] MEDS: ALTEPLASE 2 MG VIAL INT CAT (22:05)
[2018-01-10 23:37] LABS: MEAN CORPUSCULAR HEMOGLOBIN 30 pg (25-35); MEAN CORPUSCULAR HGB CONC 34 g/dL (31-37); MEAN CORPUSCULAR VOLUME 89 fL (79-100); PLATELET COUNT 38 x10^3/uL (140-400); RED BLOOD COUNT 2.28 x10^6/uL (3.50-5.40); RED CELL DISTRIBUTION WIDTH 15.3 % (11.5-14.5); WHITE BLOOD COUNT 7.7 x10^3/uL (4.0-11.0)
[2018-01-10 23:39] LABS: HEMATOCRIT 20.3 % (36.0-47.0); HEMOGLOBIN 6.9 g/dL (12.0-15.5)
[2018-01-11 03:49] LABS: CROSSMATCH AHG 1 4
[2018-01-11] MEDS: HEPARIN PF for SUB-Q USE 5,000 UNIT/0.5 ML VIAL. SQ ×4 (05:14→23:52)
[2018-01-11 06:34] LABS: ADD MAN DIFF? NO
[2018-01-11 06:50] LABS: BASO % 1 % (0-3); EOS # 0.3 x10^3/uL (0.0-0.7); EOS % 4 % (0-3); HEMATOCRIT 22.3 % (36.0-47.0); HEMOGLOBIN 7.5 g/dL (12.0-15.5); LYMPH # 0.8 x10^3/uL (1.0-4.8); LYMPH % 12 % (24-48); MEAN CORPUSCULAR HEMOGLOBIN 30 pg (25-35); MEAN CORPUSCULAR HGB CONC 34 g/dL (31-37); MEAN CORPUSCULAR VOLUME 91 fL (79-100); MONO # 0.5 x10^3/uL (0.0-1.1); MONO % 7 % (0-9); NEUT # 5.3 x10^3uL (1.8-7.7); NEUT % 76 % (31-73); PLATELET COUNT 40 x10^3/uL (140-400); RED BLOOD COUNT 2.47 x10^6/uL (3.50-5.40); RED CELL DISTRIBUTION WIDTH 15.1 % (11.5-14.5); WHITE BLOOD COUNT 6.9 x10^3/uL (4.0-11.0)
[2018-01-11 07:13] LABS: ANION GAP 8 (6-14); BLOOD UREA NITROGEN 49 mg/dL (7-20); CALCIUM 7.5 mg/dL (8.5-10.1); CARBON DIOXIDE 28 mmol/L (21-32); CHLORIDE 100 mmol/L (98-107); CREATININE 3.4 mg/dL (0.6-1.0); GFR 13.6; GLUCOSE 134 mg/dL (70-99); POTASSIUM 3.9 mmol/L (3.5-5.1); SODIUM 136 mmol/L (136-145)
[2018-01-11 07:40] LABS: POC GLUCOSE 120 mg/dL (70-99)
[2018-01-11] MEDS: ALBUTEROL SULFATE 2.5 MG/3 ML NEBU. NEB ×5 (07:51→19:18)
[2018-01-11] MEDS: INSULIN ASPART 300 UNITS/3 ML INSULN.PEN SQ ×3 (08:00→17:27)
[2018-01-11] MEDS: oxyCODONE/APAP 5/325 1 TAB TABLET PO ×2 (08:02→15:47)
[2018-01-11] MEDS: NYSTATIN TOPICAL POWDER 15GM BOTTLE. TP ×2 (08:03→20:18)
[2018-01-11] MEDS ORDERED: IV NORMAL SALINE 1000ML BAG 1,000 ML IV ×2 (08:08)
[2018-01-11] MEDS ORDERED: ALBUMIN HUMAN 25% 200 ML IV (08:15)
[2018-01-11] MEDS ORDERED: DIALYSIS PATIENT. MC ×2 (08:15)
[2018-01-11] MEDS ORDERED: 0.9 % SODIUM CHLORIDE 10 ML DISP.SYRIN. IV ×2 (08:15)
[2018-01-11] MEDS: silver sulfADIAZINE 1% CREAM 25GM TUBE. TP ×2 (09:00→20:18)
[2018-01-11 09:30] LABS: RETIC COUNT 0.1 % (0.5-2.5)
[2018-01-11 10:00] LABS: HEMATOCRIT 22.6 % (36.0-47.0); HEMOGLOBIN 7.7 g/dL (12.0-15.5); MEAN CORPUSCULAR HGB CONC 34 g/dL (31-37)
[2018-01-11 10:28] LABS: FIBRINOGEN 282 mg/dL (200-440)
[2018-01-11 13:55] LABS: INR 1.2 (0.8-1.1); PROTHROMBIN TIME PATIENT 14.8 SEC (11.7-14.0)
[2018-01-11] MEDS: cefTRIAXone IV Push 1 GM VIAL. IVP (15:43)
[2018-01-11] MEDS: CITALOPRAM 20 MG TABLET. PO (15:44)
[2018-01-11] MEDS: PANTOPRAZOLE 40 MG TABLET.DR. PO (15:44)
[2018-01-11] MEDS: SODIUM BICARBONATE 650 MG TABLET. PO ×2 (15:44→20:18)
[2018-01-11] MEDS: ALTEPLASE 2 MG VIAL INT CAT (15:45)
[2018-01-11] MEDS: ASPIRIN CHEWABLE 81 MG TABLET. PO (15:46)
[2018-01-11] MEDS: LEVOTHYROXINE 150 MCG TABLET PO (15:46)
[2018-01-11] MEDS: LACTOBACILLUS RHAMNOSUS GG 1 CAPSULE. PO ×2 (15:46→20:18)
[2018-01-11] MEDS: metroNIDAZOLE 500 MG TABLET PO ×2 (15:47→20:18)
[2018-01-11 17:03] LABS: HEPARIN INDUC PLT ABDY SEE SEPARATE REPORT
[2018-01-11 17:04] LABS: POC GLUCOSE 178 mg/dL (70-99)
[2018-01-11] MEDS: BENZONATATE 100 MG CAPSULE. PO ×2 (17:28→23:00)
[2018-01-11] MEDS: ATORVASTATIN CALCIUM 10 MG TABLET. PO (20:17)
[2018-01-11] MEDS: INSULIN DETEMIR 300 UNITS/3 ML INSULN.PEN. SQ (20:18)
[2018-01-11] MEDS: amLODIPine BESYLATE 10 MG TABLET PO (20:18)
[2018-01-11 21:31] LABS: HEMATOCRIT 22.4 % (36.0-47.0); HEMOGLOBIN 7.5 g/dL (12.0-15.5); MEAN CORPUSCULAR HEMOGLOBIN 30 pg (25-35); MEAN CORPUSCULAR HGB CONC 34 g/dL (31-37); MEAN CORPUSCULAR VOLUME 90 fL (79-100); PLATELET COUNT 42 x10^3/uL (140-400); RED BLOOD COUNT 2.48 x10^6/uL (3.50-5.40); RED CELL DISTRIBUTION WIDTH 14.9 % (11.5-14.5); WHITE BLOOD COUNT 6.6 x10^3/uL (4.0-11.0)
[2018-01-11 21:37] LABS: POC GLUCOSE 167 mg/dL (70-99)
[2018-01-12 06:06] LABS: HEMATOCRIT 21.4 % (36.0-47.0); HEMOGLOBIN 7.2 g/dL (12.0-15.5); MEAN CORPUSCULAR HEMOGLOBIN 30 pg (25-35); MEAN CORPUSCULAR HGB CONC 34 g/dL (31-37); MEAN CORPUSCULAR VOLUME 90 fL (79-100); PLATELET COUNT 43 x10^3/uL (140-400); RED BLOOD COUNT 2.38 x10^6/uL (3.50-5.40); RED CELL DISTRIBUTION WIDTH 14.6 % (11.5-14.5); WHITE BLOOD COUNT 6.1 x10^3/uL (4.0-11.0)
[2018-01-12 06:27] LABS: ALBUMIN 1.8 g/dL (3.4-5.0); ALBUMIN/GLOBULIN RATIO 0.6 (1.0-1.7); ALK PHOS 96 U/L (46-116); ALT (SGPT) 53 U/L (14-59); ANION GAP 4 (6-14); AST (SGOT) 87 U/L (15-37); BLOOD UREA NITROGEN 29 mg/dL (7-20); BUN/CREATININE RATIO 11 (6-20); CALCIUM 7.2 mg/dL (8.5-10.1); CARBON DIOXIDE 32 mmol/L (21-32); CHLORIDE 101 mmol/L (98-107); CREATININE 2.6 mg/dL (0.6-1.0); GFR 18.5; GLUCOSE 151 mg/dL (70-99); POTASSIUM 3.6 mmol/L (3.5-5.1); SODIUM 137 mmol/L (136-145); TOTAL BILIRUBIN 0.5 mg/dL (0.2-1.0)
[2018-01-12 07:57] LABS: POC GLUCOSE 140 mg/dL (70-99)
[2018-01-12] MEDS: ALBUTEROL SULFATE 2.5 MG/3 ML NEBU. NEB ×4 (08:04→20:46)
[2018-01-12] MEDS: BUDESONIDE 0.5 MG/2 ML NEBU. NEB ×2 (08:12→20:46)
[2018-01-12] MEDS: BENZONATATE 100 MG CAPSULE. PO ×3 (08:42→21:39)
[2018-01-12] MEDS: metroNIDAZOLE 500 MG TABLET PO ×2 (08:42→21:39)
[2018-01-12] MEDS: ERGOCALCIFEROL (VITAMIN D2) 50,000 UNIT CAPSULE. PO (08:42)
[2018-01-12] MEDS: SODIUM BICARBONATE 650 MG TABLET. PO ×2 (08:42→21:40)
[2018-01-12] MEDS: ASPIRIN CHEWABLE 81 MG TABLET. PO (08:42)
[2018-01-12] MEDS: LEVOTHYROXINE 150 MCG TABLET PO (08:42)
[2018-01-12] MEDS: CITALOPRAM 20 MG TABLET. PO (08:42)
[2018-01-12] MEDS: LACTOBACILLUS RHAMNOSUS GG 1 CAPSULE. PO ×2 (08:42→21:40)
[2018-01-12] MEDS: PANTOPRAZOLE 40 MG TABLET.DR. PO (08:42)
[2018-01-12] MEDS: cefTRIAXone IV Push 1 GM VIAL. IVP (08:44)
[2018-01-12] MEDS: NYSTATIN TOPICAL POWDER 15GM BOTTLE. TP ×2 (08:44→21:44)
[2018-01-12] MEDS: silver sulfADIAZINE 1% CREAM 25GM TUBE. TP ×2 (08:44→21:44)
[2018-01-12] MEDS: INSULIN ASPART 300 UNITS/3 ML INSULN.PEN SQ ×3 (08:53→17:53)
[2018-01-12] MEDS: oxyCODONE/APAP 5/325 1 TAB TABLET PO ×2 (08:55→21:41)
[2018-01-12 09:19] LABS: HEMATOCRIT 23.2 % (36.0-47.0); MEAN CORPUSCULAR HEMOGLOBIN 31 pg (25-35); MEAN CORPUSCULAR HGB CONC 35 g/dL (31-37); MEAN CORPUSCULAR VOLUME 90 fL (79-100); PLATELET COUNT 46 x10^3/uL (140-400); RED BLOOD COUNT 2.57 x10^6/uL (3.50-5.40); RED CELL DISTRIBUTION WIDTH 14.6 % (11.5-14.5); WHITE BLOOD COUNT 6.6 x10^3/uL (4.0-11.0)
[2018-01-12] MEDS: HEPARIN PF for SUB-Q USE 5,000 UNIT/0.5 ML VIAL. SQ ×2 (13:32→21:48)
[2018-01-12] MEDS: FUROSEMIDE 100 MG/10 ML VIAL. IVP ×2 (14:26→21:41)
[2018-01-12 16:17] LABS: POC GLUCOSE 192 mg/dL (70-99)
[2018-01-12 16:42] LABS: POC GLUCOSE 146 mg/dL (70-99)
[2018-01-12 21:00] LABS: POC GLUCOSE 154 mg/dL (70-99)
[2018-01-12] MEDS: INSULIN DETEMIR 300 UNITS/3 ML INSULN.PEN. SQ (21:00)
[2018-01-12] MEDS: ATORVASTATIN CALCIUM 10 MG TABLET. PO (21:39)
[2018-01-12] MEDS: amLODIPine BESYLATE 10 MG TABLET PO (21:40)
[2018-01-12 22:15] LABS: HEMATOCRIT 23.1 % (36.0-47.0); HEMOGLOBIN 7.8 g/dL (12.0-15.5); MEAN CORPUSCULAR HEMOGLOBIN 30 pg (25-35); MEAN CORPUSCULAR HGB CONC 34 g/dL (31-37); MEAN CORPUSCULAR VOLUME 90 fL (79-100); PLATELET COUNT 63 x10^3/uL (140-400); RED BLOOD COUNT 2.58 x10^6/uL (3.50-5.40); RED CELL DISTRIBUTION WIDTH 14.8 % (11.5-14.5); WHITE BLOOD COUNT 8.3 x10^3/uL (4.0-11.0)
[2018-01-13] MEDS: HEPARIN PF for SUB-Q USE 5,000 UNIT/0.5 ML VIAL. SQ ×4 (06:00→21:35)
[2018-01-13] MEDS: ALBUTEROL SULFATE 2.5 MG/3 ML NEBU. NEB ×4 (07:43→20:39)
[2018-01-13] MEDS: BUDESONIDE 0.5 MG/2 ML NEBU. NEB ×2 (07:43→20:38)
[2018-01-13 08:07] LABS: POC GLUCOSE 105 mg/dL (70-99)
[2018-01-13] MEDS: CEFPODOXIME PROXETIL 100 MG TABLET. PO ×2 (09:23→21:33)
[2018-01-13] MEDS: SODIUM BICARBONATE 650 MG TABLET. PO ×2 (09:24→21:33)
[2018-01-13] MEDS: LEVOTHYROXINE 150 MCG TABLET PO (09:24)
[2018-01-13] MEDS: metroNIDAZOLE 500 MG TABLET PO ×2 (09:24→21:33)
[2018-01-13] MEDS: PANTOPRAZOLE 40 MG TABLET.DR. PO (09:24)
[2018-01-13] MEDS: CITALOPRAM 20 MG TABLET. PO (09:24)
[2018-01-13] MEDS: BENZONATATE 100 MG CAPSULE. PO ×3 (09:24→21:33)
[2018-01-13] MEDS: LACTOBACILLUS RHAMNOSUS GG 1 CAPSULE. PO ×2 (09:24→21:33)
[2018-01-13] MEDS: ASPIRIN CHEWABLE 81 MG TABLET. PO (09:24)
[2018-01-13] MEDS: INSULIN ASPART 300 UNITS/3 ML INSULN.PEN SQ ×3 (09:28→18:13)
[2018-01-13] MEDS: oxyCODONE/APAP 5/325 1 TAB TABLET PO ×3 (09:29→21:34)
[2018-01-13] MEDS: silver sulfADIAZINE 1% CREAM 25GM TUBE. TP ×2 (09:31→21:33)
[2018-01-13] MEDS: NYSTATIN TOPICAL POWDER 15GM BOTTLE. TP ×2 (09:32→21:33)
[2018-01-13 09:50] LABS: HEMATOCRIT 23.5 % (36.0-47.0); HEMOGLOBIN 8.1 g/dL (12.0-15.5); MEAN CORPUSCULAR HEMOGLOBIN 31 pg (25-35); MEAN CORPUSCULAR HGB CONC 35 g/dL (31-37); MEAN CORPUSCULAR VOLUME 90 fL (79-100); PLATELET COUNT 79 x10^3/uL (140-400); RED BLOOD COUNT 2.63 x10^6/uL (3.50-5.40); RED CELL DISTRIBUTION WIDTH 14.3 % (11.5-14.5); WHITE BLOOD COUNT 9.8 x10^3/uL (4.0-11.0)
[2018-01-13 10:01] LABS: ANION GAP 4 (6-14); BLOOD UREA NITROGEN 36 mg/dL (7-20); CALCIUM 7.8 mg/dL (8.5-10.1); CARBON DIOXIDE 32 mmol/L (21-32); CHLORIDE 99 mmol/L (98-107); CREATININE 3.4 mg/dL (0.6-1.0); GFR 13.6; GLUCOSE 163 mg/dL (70-99); MAGNESIUM 1.6 mg/dL (1.8-2.4); PHOSPHORUS 3.8 mg/dL (2.6-4.7); POTASSIUM 3.6 mmol/L (3.5-5.1); SODIUM 135 mmol/L (136-145)
[2018-01-13] MEDS: FUROSEMIDE 100 MG/10 ML VIAL. IVP ×3 (10:37→21:34)
[2018-01-13] MEDS: MAGNESIUM SULFATE 2GM 50 ML IV (10:37)
[2018-01-13 11:41] LABS: POC GLUCOSE 134 mg/dL (70-99)
[2018-01-13] MEDS ORDERED: IV NORMAL SALINE 1000ML BAG 1,000 ML IV ×2 (14:45)
[2018-01-13] MEDS ORDERED: ALBUMIN HUMAN 25% 200 ML IV (14:45)
[2018-01-13] MEDS ORDERED: DIALYSIS PATIENT. MC ×2 (14:45)
[2018-01-13] MEDS ORDERED: 0.9 % SODIUM CHLORIDE 10 ML DISP.SYRIN. IV ×2 (14:45)
[2018-01-13 18:09] LABS: POC GLUCOSE 153 mg/dL (70-99)
[2018-01-13] MEDS: INSULIN DETEMIR 300 UNITS/3 ML INSULN.PEN. SQ (21:00)
[2018-01-13 21:18] LABS: POC GLUCOSE 161 mg/dL (70-99)
[2018-01-13] MEDS: amLODIPine BESYLATE 10 MG TABLET PO (21:33)
[2018-01-13] MEDS: ATORVASTATIN CALCIUM 10 MG TABLET. PO (21:33)
[2018-01-13 21:46] LABS: HEMATOCRIT 22.3 % (36.0-47.0); HEMOGLOBIN 7.5 g/dL (12.0-15.5); MEAN CORPUSCULAR HEMOGLOBIN 30 pg (25-35); MEAN CORPUSCULAR HGB CONC 34 g/dL (31-37); MEAN CORPUSCULAR VOLUME 90 fL (79-100); PLATELET COUNT 67 x10^3/uL (140-400); RED BLOOD COUNT 2.47 x10^6/uL (3.50-5.40); RED CELL DISTRIBUTION WIDTH 14.6 % (11.5-14.5); WHITE BLOOD COUNT 9.5 x10^3/uL (4.0-11.0)
[2018-01-14 06:39] LABS: HEMOGLOBIN 7.7 g/dL (12.0-15.5)
[2018-01-14 06:51] LABS: ALBUMIN 1.9 g/dL (3.4-5.0); ANION GAP 5 (6-14); BLOOD UREA NITROGEN 30 mg/dL (7-20); CALCIUM 7.6 mg/dL (8.5-10.1); CARBON DIOXIDE 32 mmol/L (21-32); CHLORIDE 101 mmol/L (98-107); CREATININE 3.1 mg/dL (0.6-1.0); GFR 15.1; GLUCOSE 139 mg/dL (70-99); MAGNESIUM 1.9 mg/dL (1.8-2.4); PHOSPHORUS 3.6 mg/dL (2.6-4.7); POTASSIUM 3.6 mmol/L (3.5-5.1); SODIUM 138 mmol/L (136-145)
[2018-01-14] MEDS: BUDESONIDE 0.5 MG/2 ML NEBU. NEB ×2 (08:12→21:26)
[2018-01-14] MEDS: ALBUTEROL SULFATE 2.5 MG/3 ML NEBU. NEB ×4 (08:12→21:26)
[2018-01-14 08:53] LABS: POC GLUCOSE 132 mg/dL (70-99)
[2018-01-14] MEDS: BENZONATATE 100 MG CAPSULE. PO ×4 (09:00→21:19)
[2018-01-14] MEDS: LACTOBACILLUS RHAMNOSUS GG 1 CAPSULE. PO ×2 (09:57→21:48)
[2018-01-14] MEDS: ASPIRIN CHEWABLE 81 MG TABLET. PO (09:57)
[2018-01-14] MEDS: SODIUM BICARBONATE 650 MG TABLET. PO ×2 (09:57→21:20)
[2018-01-14] MEDS: PANTOPRAZOLE 40 MG TABLET.DR. PO (09:57)
[2018-01-14] MEDS: LEVOTHYROXINE 150 MCG TABLET PO (09:58)
[2018-01-14] MEDS: CITALOPRAM 20 MG TABLET. PO (09:58)
[2018-01-14] MEDS: metroNIDAZOLE 500 MG TABLET PO ×2 (09:58→21:19)
[2018-01-14] MEDS: oxyCODONE/APAP 5/325 1 TAB TABLET PO ×3 (09:58→21:18)
[2018-01-14] MEDS: FUROSEMIDE 100 MG/10 ML VIAL. IVP ×4 (09:59→21:56)
[2018-01-14] MEDS: INSULIN ASPART 300 UNITS/3 ML INSULN.PEN SQ ×3 (10:13→17:00)
[2018-01-14] MEDS: silver sulfADIAZINE 1% CREAM 25GM TUBE. TP ×2 (10:17→21:48)
[2018-01-14] MEDS: NYSTATIN TOPICAL POWDER 15GM BOTTLE. TP ×2 (10:17→21:48)
[2018-01-14 13:10] LABS: POC GLUCOSE 161 mg/dL (70-99)
[2018-01-14] MEDS: HEPARIN PF for SUB-Q USE 5,000 UNIT/0.5 ML VIAL. SQ ×2 (13:10→21:49)
[2018-01-14 14:38] LABS: HEMATOCRIT 23.4 % (36.0-47.0); MEAN CORPUSCULAR HGB CONC 34 g/dL (31-37)
[2018-01-14] MEDS ORDERED: IV NORMAL SALINE 1000ML BAG 1,000 ML IV ×2 (15:13)
[2018-01-14] MEDS ORDERED: 0.9 % SODIUM CHLORIDE 10 ML DISP.SYRIN. IV ×2 (15:15)
[2018-01-14] MEDS ORDERED: DIALYSIS PATIENT. MC ×2 (15:15)
[2018-01-14] MEDS ORDERED: CIPROFLOXACIN HCL 250 MG TABLET. PO (21:00)
[2018-01-14] MEDS: amLODIPine BESYLATE 10 MG TABLET PO (21:19)
[2018-01-14] MEDS: ATORVASTATIN CALCIUM 10 MG TABLET. PO (21:20)
[2018-01-14] MEDS: INSULIN DETEMIR 300 UNITS/3 ML INSULN.PEN. SQ (21:24)
[2018-01-15] MEDS: HEPARIN PF for SUB-Q USE 5,000 UNIT/0.5 ML VIAL. SQ (03:52)
[2018-01-15] MEDS: oxyCODONE/APAP 5/325 1 TAB TABLET PO (04:07)
[2018-01-15 06:38] LABS: ANION GAP 2 (6-14); BLOOD UREA NITROGEN 17 mg/dL (7-20); CALCIUM 7.7 mg/dL (8.5-10.1); CARBON DIOXIDE 34 mmol/L (21-32); CHLORIDE 103 mmol/L (98-107); CREATININE 2.2 mg/dL (0.6-1.0); GFR 22.4; GLUCOSE 95 mg/dL (70-99); MAGNESIUM 1.7 mg/dL (1.8-2.4); PHOSPHORUS 3.2 mg/dL (2.6-4.7); POTASSIUM 3.9 mmol/L (3.5-5.1); SODIUM 139 mmol/L (136-145)
[2018-01-15] MEDS: BUDESONIDE 0.5 MG/2 ML NEBU. NEB (07:18)
[2018-01-15] MEDS: ALBUTEROL SULFATE 2.5 MG/3 ML NEBU. NEB (07:18)
[2018-01-15 08:02] LABS: POC GLUCOSE 102 mg/dL (70-99)
[2018-01-15] MEDS: CITALOPRAM 20 MG TABLET. PO (08:47)
[2018-01-15] MEDS: LEVOTHYROXINE 150 MCG TABLET PO (08:48)
[2018-01-15] MEDS: LACTOBACILLUS RHAMNOSUS GG 1 CAPSULE. PO (08:48)
[2018-01-15] MEDS: PANTOPRAZOLE 40 MG TABLET.DR. PO (08:48)
[2018-01-15] MEDS: metroNIDAZOLE 500 MG TABLET PO (08:48)
[2018-01-15] MEDS: FUROSEMIDE 100 MG/10 ML VIAL. IVP (08:48)
[2018-01-15] MEDS: SODIUM BICARBONATE 650 MG TABLET. PO (08:48)
[2018-01-15] MEDS: BENZONATATE 100 MG CAPSULE. PO (08:48)
[2018-01-15] MEDS: ASPIRIN CHEWABLE 81 MG TABLET. PO (08:48)
[2018-01-15] MEDS: INSULIN ASPART 300 UNITS/3 ML INSULN.PEN SQ (08:59)
[2018-01-17] MEDS ORDERED: DARBEPOETIN ALFA 100 MCG/0.5 ML DISP.SYRIN. SQ (21:00)
== END 2018-01-15 11:35 | disposition home or self-care (01) | DRG 853 ==
LOC: 2 SOUTH 01-10 18:07 → ER 15:15 → 1 WEST ICU 18:21
PROC: 0JBL0ZZ Excision of Right Upper Leg Subcutaneous Tissue and Fascia, Open Approach (ICD-10-PCS; principal; 2018-01-05 12:00)
PROC: 0J9C0ZZ Drainage of Pelvic Region Subcutaneous Tissue and Fascia, Open Approach (ICD-10-PCS; 2018-01-05 12:00)
PROC: 0KXQ0ZZ Transfer Right Upper Leg Muscle, Open Approach (ICD-10-PCS; 2018-01-05 12:00)
PROC: 5A1945Z Respiratory Ventilation, 24-96 Consecutive Hours (ICD-10-PCS; 2018-01-05 13:24)
PROC: 0BH17EZ Insertion of Endotracheal Airway into Trachea, Via Natural or Artificial Opening (ICD-10-PCS; 2018-01-05 13:24)
PROC: 5A09357 Assistance with Respiratory Ventilation, Less than 24 Consecutive Hours, Continuous Positive Airway Pressure (ICD-10-PCS; 2018-01-05 13:24)
PROC: 30233N1 Transfusion of Nonautologous Red Blood Cells into Peripheral Vein, Percutaneous Approach (ICD-10-PCS; 2018-01-05 13:24)
PROC: 02HV33Z Insertion of Infusion Device into Superior Vena Cava, Percutaneous Approach (ICD-10-PCS; 2018-01-05 13:24)
DX: A41.9 Sepsis, unspecified organism (principal); J96.21 Acute and chronic respiratory failure with hypoxia; I13.2 Hypertensive heart and chronic kidney disease with heart failure and with stage 5 chronic kidney disease, or end stage renal disease; R57.0 Cardiogenic shock; R65.21 Severe sepsis with septic shock; E11.21 Type 2 diabetes mellitus with diabetic nephropathy; D69.6 Thrombocytopenia, unspecified; N18.6 End stage renal disease; E11.22 Type 2 diabetes mellitus with diabetic chronic kidney disease; J96.22 Acute and chronic respiratory failure with hypercapnia; L76.34 Postprocedural seroma of skin and subcutaneous tissue following other procedure; Z68.41 Body mass index [BMI] 40.0-44.9, adult; I42.0 Dilated cardiomyopathy; I50.42 Chronic combined systolic (congestive) and diastolic (congestive) heart failure; L02.214 Cutaneous abscess of groin; L03.90 Cellulitis, unspecified; L97.419 Non-pressure chronic ulcer of right heel and midfoot with unspecified severity; N25.81 Secondary hyperparathyroidism of renal origin; L76.32 Postprocedural hematoma of skin and subcutaneous tissue following other procedure; E11.51 Type 2 diabetes mellitus with diabetic peripheral angiopathy without gangrene; D63.1 Anemia in chronic kidney disease; E03.9 Hypothyroidism, unspecified; E11.621 Type 2 diabetes mellitus with foot ulcer; E66.01 Morbid (severe) obesity due to excess calories; E78.00 Pure hypercholesterolemia, unspecified; E78.5 Hyperlipidemia, unspecified; E86.1 Hypovolemia; F17.200 Nicotine dependence, unspecified, uncomplicated; I25.10 Atherosclerotic heart disease of native coronary artery without angina pectoris; I25.5 Ischemic cardiomyopathy; I27.20 Pulmonary hypertension, unspecified; J44.9 Chronic obstructive pulmonary disease, unspecified; K21.9 Gastro-esophageal reflux disease without esophagitis; L97.519 Non-pressure chronic ulcer of other part of right foot with unspecified severity; Z79.82 Long term (current) use of aspirin; Z82.49 Family history of ischemic heart disease and other diseases of the circulatory system; Z82.5 Family history of asthma and other chronic lower respiratory diseases; Z83.3 Family history of diabetes mellitus; Z86.72 Personal history of thrombophlebitis; Z86.74 Personal history of sudden cardiac arrest; Z88.1 Allergy status to other antibiotic agents; Z89.512 Acquired absence of left leg below knee; Z90.49 Acquired absence of other specified parts of digestive tract; Z95.810 Presence of automatic (implantable) cardiac defibrillator; Z98.61 Coronary angioplasty status; Z99.2 Dependence on renal dialysis; E21.3 Hyperparathyroidism, unspecified; F32.9 Major depressive disorder, single episode, unspecified
CPT/HCPCS: 36415; 36600; 71045; 71275; 80048; 80053; 80069; 80076; 80202; 82274; 82805; 82962; 83605; 83615; 83690; 83735; 83880; 84484; 85007; 85014; 85018; 85025; 85027; 85045; 85384; 85610; 85730; 86022; 86706; 86850; 86870; 86880; 86900; 86901; 86902; 86922; 87040; 87071; 87075; 87186; 87205; 87340; 87641; 93005; 93923; 94002; 94003; 94640; 94660; 94760; 96365; 96375; 97162-GP; 97166-GO; 99285; 99285-25; J0171; J0330; J0696; J0881; J1100; J1265; J1650; J1815; J1956; J2020; J2270; J2405; J2543; J2704; J2997; J3010; J3370; J3475; J7030; J7040; J7613; J7626; P9016; Q9967

== ENCOUNTER → 2018-01-28 | Outpatient (CLI) | payer BC, MEDICAID | END | disposition home or self-care (01) | LOC: PMGWOUND 10:20 | DX: T81.89XA Other complications of procedures, not elsewhere classified, initial encounter (principal); E11.621 Type 2 diabetes mellitus with foot ulcer; L97.413 Non-pressure chronic ulcer of right heel and midfoot with necrosis of muscle; E11.622 Type 2 diabetes mellitus with other skin ulcer; L98.411 Non-pressure chronic ulcer of buttock limited to breakdown of skin; L98.491 Non-pressure chronic ulcer of skin of other sites limited to breakdown of skin; L89.153 Pressure ulcer of sacral region, stage 3; L89.313 Pressure ulcer of right buttock, stage 3; E11.51 Type 2 diabetes mellitus with diabetic peripheral angiopathy without gangrene; I25.10 Atherosclerotic heart disease of native coronary artery without angina pectoris; E11.22 Type 2 diabetes mellitus with diabetic chronic kidney disease; I13.2 Hypertensive heart and chronic kidney disease with heart failure and with stage 5 chronic kidney disease, or end stage renal disease; N18.6 End stage renal disease; I50.43 Acute on chronic combined systolic (congestive) and diastolic (congestive) heart failure; K21.9 Gastro-esophageal reflux disease without esophagitis; E03.9 Hypothyroidism, unspecified; F32.9 Major depressive disorder, single episode, unspecified; I25.2 Old myocardial infarction; E78.00 Pure hypercholesterolemia, unspecified; E11.21 Type 2 diabetes mellitus with diabetic nephropathy; E66.01 Morbid (severe) obesity due to excess calories; I48.91 Unspecified atrial fibrillation; M19.90 Unspecified osteoarthritis, unspecified site; E21.3 Hyperparathyroidism, unspecified; J44.1 Chronic obstructive pulmonary disease with (acute) exacerbation; Z87.891 Personal history of nicotine dependence; Z89.512 Acquired absence of left leg below knee; Z89.611 Acquired absence of right leg above knee; Z90.49 Acquired absence of other specified parts of digestive tract; Z79.4 Long term (current) use of insulin; Z68.41 Body mass index [BMI] 40.0-44.9, adult; Z99.2 Dependence on renal dialysis; Y92.89 Other specified places as the place of occurrence of the external cause; Y83.8 Other surgical procedures as the cause of abnormal reaction of the patient, or of later complication, without mention of misadventure at the time of the procedure | CPT/HCPCS: 97597; 97605 ==

== ENCOUNTER → 2018-02-04 | Outpatient (CLI) | payer BC, MEDICAID | END | disposition home or self-care (01) | LOC: PMGWOUND 11:45 | DX: T81.89XD Other complications of procedures, not elsewhere classified, subsequent encounter (principal); E11.621 Type 2 diabetes mellitus with foot ulcer; L97.413 Non-pressure chronic ulcer of right heel and midfoot with necrosis of muscle; E11.622 Type 2 diabetes mellitus with other skin ulcer; L89.153 Pressure ulcer of sacral region, stage 3; L89.313 Pressure ulcer of right buttock, stage 3; L98.411 Non-pressure chronic ulcer of buttock limited to breakdown of skin; L98.491 Non-pressure chronic ulcer of skin of other sites limited to breakdown of skin; E11.51 Type 2 diabetes mellitus with diabetic peripheral angiopathy without gangrene; I25.10 Atherosclerotic heart disease of native coronary artery without angina pectoris; E11.22 Type 2 diabetes mellitus with diabetic chronic kidney disease; I13.2 Hypertensive heart and chronic kidney disease with heart failure and with stage 5 chronic kidney disease, or end stage renal disease; N18.6 End stage renal disease; I50.43 Acute on chronic combined systolic (congestive) and diastolic (congestive) heart failure; E11.42 Type 2 diabetes mellitus with diabetic polyneuropathy; K21.9 Gastro-esophageal reflux disease without esophagitis; E03.9 Hypothyroidism, unspecified; F32.9 Major depressive disorder, single episode, unspecified; I25.2 Old myocardial infarction; E78.00 Pure hypercholesterolemia, unspecified; E11.21 Type 2 diabetes mellitus with diabetic nephropathy; E66.01 Morbid (severe) obesity due to excess calories; I48.91 Unspecified atrial fibrillation; M19.90 Unspecified osteoarthritis, unspecified site; E21.3 Hyperparathyroidism, unspecified; J44.1 Chronic obstructive pulmonary disease with (acute) exacerbation; F17.210 Nicotine dependence, cigarettes, uncomplicated; Z89.512 Acquired absence of left leg below knee; Z89.611 Acquired absence of right leg above knee; Z90.49 Acquired absence of other specified parts of digestive tract; Z79.4 Long term (current) use of insulin; Z99.2 Dependence on renal dialysis; Z79.82 Long term (current) use of aspirin; Z98.61 Coronary angioplasty status; Z90.710 Acquired absence of both cervix and uterus; Z68.37 Body mass index [BMI] 37.0-37.9, adult; Z92.89 Personal history of other medical treatment; Y83.8 Other surgical procedures as the cause of abnormal reaction of the patient, or of later complication, without mention of misadventure at the time of the procedure | CPT/HCPCS: 97597 ==

== ENCOUNTER → 2018-02-11 | Outpatient (CLI) | payer BC, MEDICAID | END | disposition home or self-care (01) | LOC: PMGWOUND 09:08 | DX: T81.89XD Other complications of procedures, not elsewhere classified, subsequent encounter (principal); E11.621 Type 2 diabetes mellitus with foot ulcer; L97.413 Non-pressure chronic ulcer of right heel and midfoot with necrosis of muscle; E11.622 Type 2 diabetes mellitus with other skin ulcer; L89.153 Pressure ulcer of sacral region, stage 3; L98.491 Non-pressure chronic ulcer of skin of other sites limited to breakdown of skin; E11.51 Type 2 diabetes mellitus with diabetic peripheral angiopathy without gangrene; I25.10 Atherosclerotic heart disease of native coronary artery without angina pectoris; E11.22 Type 2 diabetes mellitus with diabetic chronic kidney disease; I13.2 Hypertensive heart and chronic kidney disease with heart failure and with stage 5 chronic kidney disease, or end stage renal disease; N18.6 End stage renal disease; I50.43 Acute on chronic combined systolic (congestive) and diastolic (congestive) heart failure; E11.42 Type 2 diabetes mellitus with diabetic polyneuropathy; K21.9 Gastro-esophageal reflux disease without esophagitis; E03.9 Hypothyroidism, unspecified; F32.9 Major depressive disorder, single episode, unspecified; I25.2 Old myocardial infarction; E78.00 Pure hypercholesterolemia, unspecified; E11.21 Type 2 diabetes mellitus with diabetic nephropathy; E66.01 Morbid (severe) obesity due to excess calories; I48.91 Unspecified atrial fibrillation; M19.90 Unspecified osteoarthritis, unspecified site; E21.3 Hyperparathyroidism, unspecified; J44.1 Chronic obstructive pulmonary disease with (acute) exacerbation; F17.210 Nicotine dependence, cigarettes, uncomplicated; Z89.512 Acquired absence of left leg below knee; Z89.611 Acquired absence of right leg above knee; Z90.49 Acquired absence of other specified parts of digestive tract; Z79.4 Long term (current) use of insulin; Z99.2 Dependence on renal dialysis; Z79.82 Long term (current) use of aspirin; Z98.61 Coronary angioplasty status; Z90.710 Acquired absence of both cervix and uterus; Z68.37 Body mass index [BMI] 37.0-37.9, adult; Z92.89 Personal history of other medical treatment; Y83.8 Other surgical procedures as the cause of abnormal reaction of the patient, or of later complication, without mention of misadventure at the time of the procedure | CPT/HCPCS: 11042; 97597; 97605 ==

== ENCOUNTER → 2018-02-19 | Outpatient (CLI) | payer BC, MEDICAID | END | disposition home or self-care (01) | LOC: PMGWOUND 08:27 | DX: T81.89XD Other complications of procedures, not elsewhere classified, subsequent encounter (principal); E11.621 Type 2 diabetes mellitus with foot ulcer; L97.413 Non-pressure chronic ulcer of right heel and midfoot with necrosis of muscle; E11.622 Type 2 diabetes mellitus with other skin ulcer; L89.153 Pressure ulcer of sacral region, stage 3; L98.491 Non-pressure chronic ulcer of skin of other sites limited to breakdown of skin; L89.313 Pressure ulcer of right buttock, stage 3; L98.411 Non-pressure chronic ulcer of buttock limited to breakdown of skin; E11.51 Type 2 diabetes mellitus with diabetic peripheral angiopathy without gangrene; I25.10 Atherosclerotic heart disease of native coronary artery without angina pectoris; E11.22 Type 2 diabetes mellitus with diabetic chronic kidney disease; I13.2 Hypertensive heart and chronic kidney disease with heart failure and with stage 5 chronic kidney disease, or end stage renal disease; N18.6 End stage renal disease; I50.43 Acute on chronic combined systolic (congestive) and diastolic (congestive) heart failure; E11.42 Type 2 diabetes mellitus with diabetic polyneuropathy; K21.9 Gastro-esophageal reflux disease without esophagitis; E03.9 Hypothyroidism, unspecified; F32.9 Major depressive disorder, single episode, unspecified; I25.2 Old myocardial infarction; E78.00 Pure hypercholesterolemia, unspecified; E11.21 Type 2 diabetes mellitus with diabetic nephropathy; E66.01 Morbid (severe) obesity due to excess calories; I48.91 Unspecified atrial fibrillation; E78.5 Hyperlipidemia, unspecified; M19.90 Unspecified osteoarthritis, unspecified site; E21.3 Hyperparathyroidism, unspecified; J44.1 Chronic obstructive pulmonary disease with (acute) exacerbation; F17.210 Nicotine dependence, cigarettes, uncomplicated; Z89.512 Acquired absence of left leg below knee; Z89.611 Acquired absence of right leg above knee; Z90.49 Acquired absence of other specified parts of digestive tract; Z79.4 Long term (current) use of insulin; Z99.2 Dependence on renal dialysis; Z79.82 Long term (current) use of aspirin; Z98.61 Coronary angioplasty status; Z90.710 Acquired absence of both cervix and uterus; Z68.37 Body mass index [BMI] 37.0-37.9, adult; Z92.89 Personal history of other medical treatment; Y83.8 Other surgical procedures as the cause of abnormal reaction of the patient, or of later complication, without mention of misadventure at the time of the procedure | CPT/HCPCS: 15275; 97605; Q4131 ==

== ENCOUNTER → 2018-02-25 | Outpatient (CLI) | payer BC, MEDICAID | END | disposition home or self-care (01) | LOC: PMGWOUND 14:03 | DX: T81.89XD Other complications of procedures, not elsewhere classified, subsequent encounter (principal); E11.621 Type 2 diabetes mellitus with foot ulcer; L97.413 Non-pressure chronic ulcer of right heel and midfoot with necrosis of muscle; E11.622 Type 2 diabetes mellitus with other skin ulcer; L89.153 Pressure ulcer of sacral region, stage 3; L98.491 Non-pressure chronic ulcer of skin of other sites limited to breakdown of skin; E11.51 Type 2 diabetes mellitus with diabetic peripheral angiopathy without gangrene; I25.10 Atherosclerotic heart disease of native coronary artery without angina pectoris; E11.22 Type 2 diabetes mellitus with diabetic chronic kidney disease; I13.2 Hypertensive heart and chronic kidney disease with heart failure and with stage 5 chronic kidney disease, or end stage renal disease; N18.6 End stage renal disease; I50.43 Acute on chronic combined systolic (congestive) and diastolic (congestive) heart failure; E11.42 Type 2 diabetes mellitus with diabetic polyneuropathy; K21.9 Gastro-esophageal reflux disease without esophagitis; E03.9 Hypothyroidism, unspecified; F32.9 Major depressive disorder, single episode, unspecified; I25.2 Old myocardial infarction; E78.00 Pure hypercholesterolemia, unspecified; E11.21 Type 2 diabetes mellitus with diabetic nephropathy; E66.01 Morbid (severe) obesity due to excess calories; I48.91 Unspecified atrial fibrillation; E78.5 Hyperlipidemia, unspecified; M19.90 Unspecified osteoarthritis, unspecified site; E21.3 Hyperparathyroidism, unspecified; J44.1 Chronic obstructive pulmonary disease with (acute) exacerbation; F17.210 Nicotine dependence, cigarettes, uncomplicated; Z89.512 Acquired absence of left leg below knee; Z89.611 Acquired absence of right leg above knee; Z90.49 Acquired absence of other specified parts of digestive tract; Z79.4 Long term (current) use of insulin; Z99.2 Dependence on renal dialysis; Z79.82 Long term (current) use of aspirin; Z98.61 Coronary angioplasty status; Z90.710 Acquired absence of both cervix and uterus; Z68.37 Body mass index [BMI] 37.0-37.9, adult; Z92.89 Personal history of other medical treatment; Y83.8 Other surgical procedures as the cause of abnormal reaction of the patient, or of later complication, without mention of misadventure at the time of the procedure | CPT/HCPCS: 97605 ==

== ENCOUNTER → 2018-02-25 | Outpatient (CLI) | payer BC, MEDICAID | END | disposition home or self-care (01) | LOC: PMGWOUND 08:34 | DX: T81.31XD Disruption of external operation (surgical) wound, not elsewhere classified, subsequent encounter (principal); E11.621 Type 2 diabetes mellitus with foot ulcer; L97.413 Non-pressure chronic ulcer of right heel and midfoot with necrosis of muscle; L89.153 Pressure ulcer of sacral region, stage 3; L98.491 Non-pressure chronic ulcer of skin of other sites limited to breakdown of skin; E11.51 Type 2 diabetes mellitus with diabetic peripheral angiopathy without gangrene; I25.10 Atherosclerotic heart disease of native coronary artery without angina pectoris; J44.1 Chronic obstructive pulmonary disease with (acute) exacerbation; K21.9 Gastro-esophageal reflux disease without esophagitis; E78.5 Hyperlipidemia, unspecified; E21.3 Hyperparathyroidism, unspecified; E03.9 Hypothyroidism, unspecified; F32.9 Major depressive disorder, single episode, unspecified; E66.01 Morbid (severe) obesity due to excess calories; I25.2 Old myocardial infarction; E78.00 Pure hypercholesterolemia, unspecified; E11.42 Type 2 diabetes mellitus with diabetic polyneuropathy; E11.21 Type 2 diabetes mellitus with diabetic nephropathy; I48.91 Unspecified atrial fibrillation; M19.90 Unspecified osteoarthritis, unspecified site; E11.22 Type 2 diabetes mellitus with diabetic chronic kidney disease; I13.2 Hypertensive heart and chronic kidney disease with heart failure and with stage 5 chronic kidney disease, or end stage renal disease; N18.6 End stage renal disease; I50.43 Acute on chronic combined systolic (congestive) and diastolic (congestive) heart failure; F17.210 Nicotine dependence, cigarettes, uncomplicated; Z89.611 Acquired absence of right leg above knee; Z89.512 Acquired absence of left leg below knee; Z90.49 Acquired absence of other specified parts of digestive tract; Z90.710 Acquired absence of both cervix and uterus; Z68.41 Body mass index [BMI] 40.0-44.9, adult; Z99.2 Dependence on renal dialysis; Z79.4 Long term (current) use of insulin; Z98.61 Coronary angioplasty status; Y83.8 Other surgical procedures as the cause of abnormal reaction of the patient, or of later complication, without mention of misadventure at the time of the procedure | CPT/HCPCS: 97605 ==

== ENCOUNTER → 2018-03-04 | Outpatient (CLI) | payer BC, MEDICAID | END | disposition home or self-care (01) | LOC: PMGWOUND 08:41 | DX: T81.31XD Disruption of external operation (surgical) wound, not elsewhere classified, subsequent encounter (principal); E11.621 Type 2 diabetes mellitus with foot ulcer; L97.413 Non-pressure chronic ulcer of right heel and midfoot with necrosis of muscle; E11.622 Type 2 diabetes mellitus with other skin ulcer; L89.153 Pressure ulcer of sacral region, stage 3; L98.491 Non-pressure chronic ulcer of skin of other sites limited to breakdown of skin; I25.10 Atherosclerotic heart disease of native coronary artery without angina pectoris; J44.1 Chronic obstructive pulmonary disease with (acute) exacerbation; K21.9 Gastro-esophageal reflux disease without esophagitis; E11.51 Type 2 diabetes mellitus with diabetic peripheral angiopathy without gangrene; E11.22 Type 2 diabetes mellitus with diabetic chronic kidney disease; I13.2 Hypertensive heart and chronic kidney disease with heart failure and with stage 5 chronic kidney disease, or end stage renal disease; N18.6 End stage renal disease; I50.43 Acute on chronic combined systolic (congestive) and diastolic (congestive) heart failure; E03.9 Hypothyroidism, unspecified; E21.3 Hyperparathyroidism, unspecified; I50.42 Chronic combined systolic (congestive) and diastolic (congestive) heart failure; F32.9 Major depressive disorder, single episode, unspecified; I25.2 Old myocardial infarction; E78.00 Pure hypercholesterolemia, unspecified; E11.42 Type 2 diabetes mellitus with diabetic polyneuropathy; E11.21 Type 2 diabetes mellitus with diabetic nephropathy; I48.91 Unspecified atrial fibrillation; M19.90 Unspecified osteoarthritis, unspecified site; E78.5 Hyperlipidemia, unspecified; Z90.710 Acquired absence of both cervix and uterus; Z90.49 Acquired absence of other specified parts of digestive tract; Z89.512 Acquired absence of left leg below knee; Z89.611 Acquired absence of right leg above knee; Z89.421 Acquired absence of other right toe(s); Z95.810 Presence of automatic (implantable) cardiac defibrillator; Z79.4 Long term (current) use of insulin; Z99.2 Dependence on renal dialysis; Z98.61 Coronary angioplasty status; Z87.891 Personal history of nicotine dependence; Y83.8 Other surgical procedures as the cause of abnormal reaction of the patient, or of later complication, without mention of misadventure at the time of the procedure | CPT/HCPCS: 11042 ==

== ENCOUNTER → 2018-03-11 | Outpatient (CLI) | payer BC, MEDICAID | END | disposition home or self-care (01) | LOC: PMGWOUND 08:34 | DX: T81.31XD Disruption of external operation (surgical) wound, not elsewhere classified, subsequent encounter (principal); E11.621 Type 2 diabetes mellitus with foot ulcer; L97.413 Non-pressure chronic ulcer of right heel and midfoot with necrosis of muscle; E11.622 Type 2 diabetes mellitus with other skin ulcer; L89.153 Pressure ulcer of sacral region, stage 3; L98.491 Non-pressure chronic ulcer of skin of other sites limited to breakdown of skin; E11.51 Type 2 diabetes mellitus with diabetic peripheral angiopathy without gangrene; I25.10 Atherosclerotic heart disease of native coronary artery without angina pectoris; E11.22 Type 2 diabetes mellitus with diabetic chronic kidney disease; I13.2 Hypertensive heart and chronic kidney disease with heart failure and with stage 5 chronic kidney disease, or end stage renal disease; N18.6 End stage renal disease; I50.43 Acute on chronic combined systolic (congestive) and diastolic (congestive) heart failure; E11.42 Type 2 diabetes mellitus with diabetic polyneuropathy; K21.9 Gastro-esophageal reflux disease without esophagitis; E03.9 Hypothyroidism, unspecified; F32.9 Major depressive disorder, single episode, unspecified; I25.2 Old myocardial infarction; E78.00 Pure hypercholesterolemia, unspecified; E11.21 Type 2 diabetes mellitus with diabetic nephropathy; E66.01 Morbid (severe) obesity due to excess calories; I48.91 Unspecified atrial fibrillation; E78.5 Hyperlipidemia, unspecified; M19.90 Unspecified osteoarthritis, unspecified site; E21.3 Hyperparathyroidism, unspecified; J44.1 Chronic obstructive pulmonary disease with (acute) exacerbation; F17.210 Nicotine dependence, cigarettes, uncomplicated; Z89.512 Acquired absence of left leg below knee; Z89.611 Acquired absence of right leg above knee; Z90.49 Acquired absence of other specified parts of digestive tract; Z79.4 Long term (current) use of insulin; Z99.2 Dependence on renal dialysis; Z79.82 Long term (current) use of aspirin; Z98.61 Coronary angioplasty status; Z90.710 Acquired absence of both cervix and uterus; Z68.37 Body mass index [BMI] 37.0-37.9, adult; Z92.89 Personal history of other medical treatment; Y83.8 Other surgical procedures as the cause of abnormal reaction of the patient, or of later complication, without mention of misadventure at the time of the procedure | CPT/HCPCS: 99214 ==

== ENCOUNTER 2018-03-17 20:28 | Inpatient (IN) | payer BC, MEDICAID ==
[2018-03-17] MEDS: IPRATRPIUM/ALBUTEROL 0.5/2.5MG 3 ML NEBU. NEB (20:55)
[2018-03-17] MEDS: ALBUTEROL SULFATE 2.5 MG/3 ML NEBU. CONT NEB (20:55)
[2018-03-17 21:01] LABS: ADD MAN DIFF? NO
[2018-03-17 21:03] LABS: BASO # 0.1 x10^3/uL (0.0-0.2); BASO % 1 % (0-3); EOS # 0.1 x10^3/uL (0.0-0.7); EOS % 2 % (0-3); HEMATOCRIT 28.6 % (36.0-47.0); HEMOGLOBIN 9.6 g/dL (12.0-15.5); LYMPH # 1.7 x10^3/uL (1.0-4.8); LYMPH % 21 % (24-48); MEAN CORPUSCULAR HEMOGLOBIN 32 pg (25-35); MEAN CORPUSCULAR HGB CONC 34 g/dL (31-37); MEAN CORPUSCULAR VOLUME 95 fL (79-100); MONO # 0.5 x10^3/uL (0.0-1.1); MONO % 7 % (0-9); NEUT # 5.7 x10^3uL (1.8-7.7); NEUT % 70 % (31-73); PLATELET COUNT 174 x10^3/uL (140-400); RED BLOOD COUNT 2.99 x10^6/uL (3.50-5.40); RED CELL DISTRIBUTION WIDTH 17.1 % (11.5-14.5); WHITE BLOOD COUNT 8.1 x10^3/uL (4.0-11.0)
[2018-03-17] MEDS: methylPREDNISolone SOD SUCC PF 125 MG/2 ML VIAL. IV (21:10)
[2018-03-17 21:12] LABS: ANION GAP 9 (6-14); BLOOD UREA NITROGEN 45 mg/dL (7-20); CALCIUM 8.2 mg/dL (8.5-10.1); CARBON DIOXIDE 26 mmol/L (21-32); CHLORIDE 102 mmol/L (98-107); CREATININE 3.7 mg/dL (0.6-1.0); GFR 12.3; GLUCOSE 143 mg/dL (70-99); INR 1.2 (0.8-1.1); PARTIAL THROMBOPLASTIN TIME 37 SEC (24-38); POTASSIUM 4.7 mmol/L (3.5-5.1); PROTHROMBIN TIME PATIENT 14.4 SEC (11.7-14.0); SODIUM 137 mmol/L (136-145)
[2018-03-17 21:22] LABS: TROPONINI 0.144 ng/mL (0.000-0.055)
[2018-03-17 21:25] LABS: NT-PRO BNP > 35000 pg/mL (0-124)
[2018-03-17] MEDS: ALBUTEROL SULFATE 2.5 MG/3 ML NEBU. NEB (22:48)
[2018-03-17] MEDS ORDERED: ONDANSETRON PF 4 MG/2 ML VIAL. IV (23:30)
[2018-03-17] MEDS ORDERED: ACETAMINOPHEN 325 MG TABLET. PO (23:30)
[2018-03-18 05:27] LABS: ANION GAP 10 (6-14); BLOOD UREA NITROGEN 46 mg/dL (7-20); CALCIUM 8.6 mg/dL (8.5-10.1); CARBON DIOXIDE 26 mmol/L (21-32); CHLORIDE 101 mmol/L (98-107); CREATININE 3.8 mg/dL (0.6-1.0); GFR 11.9; GLUCOSE 269 mg/dL (70-99); POTASSIUM 5.3 mmol/L (3.5-5.1); SODIUM 137 mmol/L (136-145)
[2018-03-18] MEDS: IPRATRPIUM/ALBUTEROL 0.5/2.5MG 3 ML NEBU. NEB (07:52)
[2018-03-18 07:59] LABS: POC GLUCOSE 314 mg/dL (70-99)
[2018-03-18] MEDS ORDERED: DEXTROSE 50% 25 GM / 50ML DISP.SYRIN. IV (09:15)
[2018-03-18] MEDS: CARVEDILOL 12.5 MG TABLET. PO ×2 (10:00→16:10)
[2018-03-18] MEDS ORDERED: IV NORMAL SALINE 1000ML BAG 1,000 ML IV ×2 (10:38)
[2018-03-18] MEDS ORDERED: diphenhydrAMINE 50 MG/ML VIAL IV ×2 (10:45)
[2018-03-18] MEDS ORDERED: DIALYSIS PATIENT. MC (10:45)
[2018-03-18] MEDS ORDERED: ACETAMINOPHEN 500 MG TABLET PO (10:45)
[2018-03-18 10:47] LABS: POC GLUCOSE 338 mg/dL (70-99)
[2018-03-18] MEDS: INSULIN LISPRO 300 UNITS/3 ML INSULN.PEN. SQ ×4 (12:00→17:00)
[2018-03-18] MEDS: BUDESONIDE 0.5 MG/2 ML NEBU. NEB ×2 (12:55→20:44)
[2018-03-18] MEDS: methylPREDNISolone SOD SUCC PF 125 MG/2 ML VIAL. IV ×3 (16:00→20:42)
[2018-03-18 16:08] LABS: POC GLUCOSE 120 mg/dL (70-99)
[2018-03-18] MEDS: SODIUM BICARBONATE 650 MG TABLET. PO ×2 (16:08→20:41)
[2018-03-18] MEDS: PRASUGREL 10 MG TABLET. PO (16:09)
[2018-03-18] MEDS: ASPIRIN CHEWABLE 81 MG TABLET. PO (16:09)
[2018-03-18] MEDS: CITALOPRAM 20 MG TABLET. PO (16:10)
[2018-03-18] MEDS: LEVOTHYROXINE 150 MCG TABLET PO (16:10)
[2018-03-18] MEDS: LISINOPRIL 20 MG TABLET PO (16:10)
[2018-03-18] MEDS: ALBUTEROL SULFATE 2.5 MG/3 ML NEBU. NEB ×2 (16:43→20:45)
[2018-03-18 20:35] LABS: POC GLUCOSE 256 mg/dL (70-99)
[2018-03-18] MEDS: DARBEPOETIN ALFA 60 MCG/0.3 ML DISP.SYRIN. SQ (20:41)
[2018-03-18] MEDS: ATORVASTATIN CALCIUM 10 MG TABLET. PO (20:41)
[2018-03-18] MEDS: amLODIPine BESYLATE 10 MG TABLET PO (20:41)
[2018-03-18] MEDS: INSULIN GLARGINE 300 UNITS/3 ML INSULN.PEN. SQ (20:48)
[2018-03-19] MEDS: LEVOTHYROXINE 150 MCG TABLET PO (06:54)
[2018-03-19] MEDS: methylPREDNISolone SOD SUCC PF 125 MG/2 ML VIAL. IV (06:54)
[2018-03-19] MEDS: BUDESONIDE 0.5 MG/2 ML NEBU. NEB (07:20)
[2018-03-19] MEDS: ALBUTEROL SULFATE 2.5 MG/3 ML NEBU. NEB (07:20)
[2018-03-19 07:33] LABS: POC GLUCOSE 189 mg/dL (70-99)
[2018-03-19] MEDS: ASPIRIN CHEWABLE 81 MG TABLET. PO (08:48)
[2018-03-19] MEDS: PRASUGREL 10 MG TABLET. PO (08:48)
[2018-03-19] MEDS: SODIUM BICARBONATE 650 MG TABLET. PO (08:48)
[2018-03-19] MEDS: CITALOPRAM 20 MG TABLET. PO (08:48)
[2018-03-19] MEDS: LISINOPRIL 20 MG TABLET PO (08:49)
[2018-03-19] MEDS: CARVEDILOL 12.5 MG TABLET. PO (08:49)
[2018-03-19] MEDS: INSULIN LISPRO 300 UNITS/3 ML INSULN.PEN. SQ ×2 (08:55)
[2018-03-19] MEDS ORDERED: NON FORMULARY ITEM (Fluticasone/Vilanterol (Breo Ellipta 200-25 Mcg INH) 1 PUFF) IH (09:00)
== END 2018-03-19 11:25 | disposition home or self-care (01) | DRG 291 ==
LOC: ER 20:28 → 2 NORTH 22:35
PROC: 5A1D70Z Performance of Urinary Filtration, Intermittent, Less than 6 Hours Per Day (ICD-10-PCS; principal; 2018-03-18)
PROC: 0HDMXZZ Extraction of Right Foot Skin, External Approach (ICD-10-PCS; 2018-03-19)
DX: I13.2 Hypertensive heart and chronic kidney disease with heart failure and with stage 5 chronic kidney disease, or end stage renal disease (principal); J96.21 Acute and chronic respiratory failure with hypoxia; N18.6 End stage renal disease; I50.43 Acute on chronic combined systolic (congestive) and diastolic (congestive) heart failure; J44.1 Chronic obstructive pulmonary disease with (acute) exacerbation; L97.419 Non-pressure chronic ulcer of right heel and midfoot with unspecified severity; D64.9 Anemia, unspecified; E87.5 Hyperkalemia; K21.9 Gastro-esophageal reflux disease without esophagitis; E21.3 Hyperparathyroidism, unspecified; F32.9 Major depressive disorder, single episode, unspecified; R74.8 Abnormal levels of other serum enzymes; E78.00 Pure hypercholesterolemia, unspecified; E11.22 Type 2 diabetes mellitus with diabetic chronic kidney disease; F41.9 Anxiety disorder, unspecified; I25.10 Atherosclerotic heart disease of native coronary artery without angina pectoris; E78.5 Hyperlipidemia, unspecified; E03.9 Hypothyroidism, unspecified; E11.621 Type 2 diabetes mellitus with foot ulcer; E11.51 Type 2 diabetes mellitus with diabetic peripheral angiopathy without gangrene; Z89.421 Acquired absence of other right toe(s); Z99.81 Dependence on supplemental oxygen; Z88.1 Allergy status to other antibiotic agents; Z79.4 Long term (current) use of insulin; Z99.2 Dependence on renal dialysis; Z95.810 Presence of automatic (implantable) cardiac defibrillator; Z89.512 Acquired absence of left leg below knee; Z87.891 Personal history of nicotine dependence; Z82.49 Family history of ischemic heart disease and other diseases of the circulatory system; Z83.3 Family history of diabetes mellitus; Z82.5 Family history of asthma and other chronic lower respiratory diseases; Z91.19 Patient's noncompliance with other medical treatment and regimen; Z90.49 Acquired absence of other specified parts of digestive tract; Z98.891 History of uterine scar from previous surgery; I25.2 Old myocardial infarction
CPT/HCPCS: 36415; 71045; 78582; 80048; 82962; 83880; 84484; 85025; 85610; 85730; 93005; 94640; 94644; 94760; 96374; 99285; 99285-25; A9540; A9558; J0881; J1815; J2930; J7613; J7620; J7626

== ENCOUNTER → 2018-03-28 | Outpatient (CLI) | payer BC, MEDICAID | END | disposition home or self-care (01) | LOC: PMGWOUND 08:30 | DX: E11.621 Type 2 diabetes mellitus with foot ulcer (principal); L97.413 Non-pressure chronic ulcer of right heel and midfoot with necrosis of muscle; E11.51 Type 2 diabetes mellitus with diabetic peripheral angiopathy without gangrene; I25.10 Atherosclerotic heart disease of native coronary artery without angina pectoris; E11.22 Type 2 diabetes mellitus with diabetic chronic kidney disease; I13.2 Hypertensive heart and chronic kidney disease with heart failure and with stage 5 chronic kidney disease, or end stage renal disease; N18.6 End stage renal disease; I50.43 Acute on chronic combined systolic (congestive) and diastolic (congestive) heart failure; E11.42 Type 2 diabetes mellitus with diabetic polyneuropathy; K21.9 Gastro-esophageal reflux disease without esophagitis; E03.9 Hypothyroidism, unspecified; F32.9 Major depressive disorder, single episode, unspecified; I25.2 Old myocardial infarction; E78.00 Pure hypercholesterolemia, unspecified; E11.21 Type 2 diabetes mellitus with diabetic nephropathy; E66.01 Morbid (severe) obesity due to excess calories; I48.91 Unspecified atrial fibrillation; E78.5 Hyperlipidemia, unspecified; M19.90 Unspecified osteoarthritis, unspecified site; E21.3 Hyperparathyroidism, unspecified; J44.1 Chronic obstructive pulmonary disease with (acute) exacerbation; F17.210 Nicotine dependence, cigarettes, uncomplicated; Z89.512 Acquired absence of left leg below knee; Z89.611 Acquired absence of right leg above knee; Z90.49 Acquired absence of other specified parts of digestive tract; Z79.4 Long term (current) use of insulin; Z99.2 Dependence on renal dialysis; Z79.82 Long term (current) use of aspirin; Z98.61 Coronary angioplasty status; Z90.710 Acquired absence of both cervix and uterus; Z68.37 Body mass index [BMI] 37.0-37.9, adult | CPT/HCPCS: 99214 ==

== ENCOUNTER → 2018-04-01 | Outpatient (CLI) | payer BC, MEDICAID | END | disposition home or self-care (01) | LOC: PMGWOUND 13:28 | DX: E11.621 Type 2 diabetes mellitus with foot ulcer (principal); L97.413 Non-pressure chronic ulcer of right heel and midfoot with necrosis of muscle; E11.51 Type 2 diabetes mellitus with diabetic peripheral angiopathy without gangrene; I25.10 Atherosclerotic heart disease of native coronary artery without angina pectoris; E11.22 Type 2 diabetes mellitus with diabetic chronic kidney disease; I13.2 Hypertensive heart and chronic kidney disease with heart failure and with stage 5 chronic kidney disease, or end stage renal disease; N18.6 End stage renal disease; I50.43 Acute on chronic combined systolic (congestive) and diastolic (congestive) heart failure; E11.42 Type 2 diabetes mellitus with diabetic polyneuropathy; K21.9 Gastro-esophageal reflux disease without esophagitis; E03.9 Hypothyroidism, unspecified; F32.9 Major depressive disorder, single episode, unspecified; I25.2 Old myocardial infarction; E78.00 Pure hypercholesterolemia, unspecified; E11.21 Type 2 diabetes mellitus with diabetic nephropathy; E66.01 Morbid (severe) obesity due to excess calories; I48.91 Unspecified atrial fibrillation; E78.5 Hyperlipidemia, unspecified; M19.90 Unspecified osteoarthritis, unspecified site; E21.3 Hyperparathyroidism, unspecified; J44.1 Chronic obstructive pulmonary disease with (acute) exacerbation; F17.210 Nicotine dependence, cigarettes, uncomplicated; Z89.512 Acquired absence of left leg below knee; Z89.611 Acquired absence of right leg above knee; Z90.49 Acquired absence of other specified parts of digestive tract; Z79.4 Long term (current) use of insulin; Z99.2 Dependence on renal dialysis; Z79.82 Long term (current) use of aspirin; Z98.61 Coronary angioplasty status; Z90.710 Acquired absence of both cervix and uterus; Z68.37 Body mass index [BMI] 37.0-37.9, adult | CPT/HCPCS: 15275; Q4131 ==

== ENCOUNTER → 2018-04-08 | Outpatient (CLI) | payer BC, MEDICAID | END | disposition home or self-care (01) | LOC: PMGWOUND 09:33 | DX: E11.621 Type 2 diabetes mellitus with foot ulcer (principal); L97.413 Non-pressure chronic ulcer of right heel and midfoot with necrosis of muscle; E11.51 Type 2 diabetes mellitus with diabetic peripheral angiopathy without gangrene; I25.10 Atherosclerotic heart disease of native coronary artery without angina pectoris; J44.0 Chronic obstructive pulmonary disease with (acute) lower respiratory infection; K21.9 Gastro-esophageal reflux disease without esophagitis; E11.22 Type 2 diabetes mellitus with diabetic chronic kidney disease; I13.2 Hypertensive heart and chronic kidney disease with heart failure and with stage 5 chronic kidney disease, or end stage renal disease; N18.6 End stage renal disease; I50.33 Acute on chronic diastolic (congestive) heart failure; E78.5 Hyperlipidemia, unspecified; E03.9 Hypothyroidism, unspecified; E21.3 Hyperparathyroidism, unspecified; F32.9 Major depressive disorder, single episode, unspecified; E66.01 Morbid (severe) obesity due to excess calories; I25.2 Old myocardial infarction; E78.00 Pure hypercholesterolemia, unspecified; E11.42 Type 2 diabetes mellitus with diabetic polyneuropathy; E11.21 Type 2 diabetes mellitus with diabetic nephropathy; I48.91 Unspecified atrial fibrillation; M19.90 Unspecified osteoarthritis, unspecified site; F41.9 Anxiety disorder, unspecified; F17.210 Nicotine dependence, cigarettes, uncomplicated; Z95.810 Presence of automatic (implantable) cardiac defibrillator; Z90.49 Acquired absence of other specified parts of digestive tract; Z89.512 Acquired absence of left leg below knee; Z89.611 Acquired absence of right leg above knee; Z90.710 Acquired absence of both cervix and uterus; Z68.41 Body mass index [BMI] 40.0-44.9, adult; Z99.2 Dependence on renal dialysis; Z98.61 Coronary angioplasty status; Z79.4 Long term (current) use of insulin | CPT/HCPCS: 15275; Q4131 ==

== ENCOUNTER → 2018-04-15 | Outpatient (CLI) | payer BC, MEDICAID | END | disposition home or self-care (01) | LOC: PMGWOUND 09:33 | DX: E11.621 Type 2 diabetes mellitus with foot ulcer (principal); L97.413 Non-pressure chronic ulcer of right heel and midfoot with necrosis of muscle; E11.51 Type 2 diabetes mellitus with diabetic peripheral angiopathy without gangrene; I25.10 Atherosclerotic heart disease of native coronary artery without angina pectoris; J44.0 Chronic obstructive pulmonary disease with (acute) lower respiratory infection; K21.9 Gastro-esophageal reflux disease without esophagitis; E11.22 Type 2 diabetes mellitus with diabetic chronic kidney disease; I13.2 Hypertensive heart and chronic kidney disease with heart failure and with stage 5 chronic kidney disease, or end stage renal disease; N18.6 End stage renal disease; I50.43 Acute on chronic combined systolic (congestive) and diastolic (congestive) heart failure; E78.5 Hyperlipidemia, unspecified; E03.9 Hypothyroidism, unspecified; E21.3 Hyperparathyroidism, unspecified; F32.9 Major depressive disorder, single episode, unspecified; E66.01 Morbid (severe) obesity due to excess calories; I25.2 Old myocardial infarction; E78.00 Pure hypercholesterolemia, unspecified; E11.42 Type 2 diabetes mellitus with diabetic polyneuropathy; E11.21 Type 2 diabetes mellitus with diabetic nephropathy; I48.91 Unspecified atrial fibrillation; M19.90 Unspecified osteoarthritis, unspecified site; G89.29 Other chronic pain; F41.9 Anxiety disorder, unspecified; F17.210 Nicotine dependence, cigarettes, uncomplicated; Z90.49 Acquired absence of other specified parts of digestive tract; Z89.512 Acquired absence of left leg below knee; Z89.611 Acquired absence of right leg above knee; Z90.710 Acquired absence of both cervix and uterus; Z95.810 Presence of automatic (implantable) cardiac defibrillator; Z68.41 Body mass index [BMI] 40.0-44.9, adult; Z99.2 Dependence on renal dialysis; Z98.61 Coronary angioplasty status; Z79.4 Long term (current) use of insulin | CPT/HCPCS: 15275; Q4131 ==

== ENCOUNTER → 2018-04-22 | Outpatient (CLI) | payer BC, MEDICAID | END | disposition home or self-care (01) | LOC: PMGWOUND 09:38 | DX: E11.621 Type 2 diabetes mellitus with foot ulcer (principal); L97.413 Non-pressure chronic ulcer of right heel and midfoot with necrosis of muscle; E11.51 Type 2 diabetes mellitus with diabetic peripheral angiopathy without gangrene; I25.10 Atherosclerotic heart disease of native coronary artery without angina pectoris; J44.0 Chronic obstructive pulmonary disease with (acute) lower respiratory infection; K21.9 Gastro-esophageal reflux disease without esophagitis; E11.22 Type 2 diabetes mellitus with diabetic chronic kidney disease; I13.2 Hypertensive heart and chronic kidney disease with heart failure and with stage 5 chronic kidney disease, or end stage renal disease; N18.6 End stage renal disease; I50.43 Acute on chronic combined systolic (congestive) and diastolic (congestive) heart failure; E78.5 Hyperlipidemia, unspecified; E03.9 Hypothyroidism, unspecified; E21.3 Hyperparathyroidism, unspecified; F32.9 Major depressive disorder, single episode, unspecified; E66.01 Morbid (severe) obesity due to excess calories; I25.2 Old myocardial infarction; E78.00 Pure hypercholesterolemia, unspecified; E11.42 Type 2 diabetes mellitus with diabetic polyneuropathy; E11.21 Type 2 diabetes mellitus with diabetic nephropathy; I48.91 Unspecified atrial fibrillation; M19.90 Unspecified osteoarthritis, unspecified site; G89.29 Other chronic pain; F41.9 Anxiety disorder, unspecified; F17.210 Nicotine dependence, cigarettes, uncomplicated; Z90.49 Acquired absence of other specified parts of digestive tract; Z89.512 Acquired absence of left leg below knee; Z89.611 Acquired absence of right leg above knee; Z90.710 Acquired absence of both cervix and uterus; Z95.810 Presence of automatic (implantable) cardiac defibrillator; Z68.41 Body mass index [BMI] 40.0-44.9, adult; Z98.61 Coronary angioplasty status; Z79.4 Long term (current) use of insulin; Z99.2 Dependence on renal dialysis | CPT/HCPCS: 11042 ==

== ENCOUNTER → 2018-04-29 | Outpatient (CLI) | payer BC, MEDICAID | END | disposition home or self-care (01) | LOC: PMGWOUND 09:27 | DX: E11.621 Type 2 diabetes mellitus with foot ulcer (principal); L97.413 Non-pressure chronic ulcer of right heel and midfoot with necrosis of muscle; E11.51 Type 2 diabetes mellitus with diabetic peripheral angiopathy without gangrene; I25.10 Atherosclerotic heart disease of native coronary artery without angina pectoris; J44.0 Chronic obstructive pulmonary disease with (acute) lower respiratory infection; K21.9 Gastro-esophageal reflux disease without esophagitis; E11.22 Type 2 diabetes mellitus with diabetic chronic kidney disease; I13.2 Hypertensive heart and chronic kidney disease with heart failure and with stage 5 chronic kidney disease, or end stage renal disease; N18.6 End stage renal disease; I50.43 Acute on chronic combined systolic (congestive) and diastolic (congestive) heart failure; E78.5 Hyperlipidemia, unspecified; E03.9 Hypothyroidism, unspecified; E21.3 Hyperparathyroidism, unspecified; F32.9 Major depressive disorder, single episode, unspecified; E66.01 Morbid (severe) obesity due to excess calories; I25.2 Old myocardial infarction; E78.00 Pure hypercholesterolemia, unspecified; E11.42 Type 2 diabetes mellitus with diabetic polyneuropathy; E11.21 Type 2 diabetes mellitus with diabetic nephropathy; I48.91 Unspecified atrial fibrillation; M19.90 Unspecified osteoarthritis, unspecified site; G89.29 Other chronic pain; F41.9 Anxiety disorder, unspecified; F17.210 Nicotine dependence, cigarettes, uncomplicated; Z90.49 Acquired absence of other specified parts of digestive tract; Z89.512 Acquired absence of left leg below knee; Z89.611 Acquired absence of right leg above knee; Z90.710 Acquired absence of both cervix and uterus; Z95.810 Presence of automatic (implantable) cardiac defibrillator; Z68.41 Body mass index [BMI] 40.0-44.9, adult; Z98.61 Coronary angioplasty status; Z79.4 Long term (current) use of insulin; Z99.2 Dependence on renal dialysis | CPT/HCPCS: 15275; Q4131 ==

== ENCOUNTER → 2018-05-06 | Outpatient (CLI) | payer BC, MEDICAID ==
[2018-04-09 07:00] VITALS: BP 152/75
[~2018-05-06] MED LIST changes: +ALBU2.5V5 NEB; +AMLO10TA2 PO; +AMOX1TAB10 PO; +ASPI-630 PO; +ATOR10TA60 PO; +AZIT250T6 PO; +BREO ELLIPTA 21 EACH IH; +CARV25TA2 PO; +CARV6.252 PO; +CEFP100T PO; +CITA20TA9 PO; +CLOP75TA57 PO; +DARB60DI SQ; +DOXY100T PO; -EPINEPHrine SYRINGE 1 MG/10 ML SYRINGE; +ERGO500027 PO; +FAMO20TA5 PO; +FERR324T14 PO; +FERR325T72 PO; +FLUT1DIS3 INH; +FURO40TA4 PO; +GUAI600T47 PO; +HUM100VI5 SQ; +HYDR-2868 PO; +HYDR-2869 PO; +HYDR25CA75 PO; +INSU100I13 SQ; +INSU100I17 SQ; +INSU100I27 SQ; +INSU100V8 SQ; +ISOS30TA4 PO; +LACT1CAP19 PO; +LACT1CAP2 PO; +LEVO100T5 PO; +LEVO150T5 PO; +LEVO50TA PO; +LINE600T PO; +LISI-130 PO; +LISI-334 PO; +NYST15PO9 TP; +NYST60PO TP; +OXYC-323 PO; +OXYC1TAB7 PO; +PATI8.4P PO; +PRAS10TA9 PO; +PRED20TA PO; +PRED50TA PO; +SODI325T PO; +SODI650T PO; +SPIR25TA PO
== END | disposition home or self-care (01) ==
LOC: PMGWOUND 09:29
PROVIDERS: ATTEND Emergency Medicine Undersea and Hyperbaric Medicine
DX: E11.621 Type 2 diabetes mellitus with foot ulcer (principal); L97.413 Non-pressure chronic ulcer of right heel and midfoot with necrosis of muscle; I13.2 Hypertensive heart and chronic kidney disease with heart failure and with stage 5 chronic kidney disease, or end stage renal disease; E11.22 Type 2 diabetes mellitus with diabetic chronic kidney disease; N18.6 End stage renal disease; I50.43 Acute on chronic combined systolic (congestive) and diastolic (congestive) heart failure; E11.42 Type 2 diabetes mellitus with diabetic polyneuropathy; E11.51 Type 2 diabetes mellitus with diabetic peripheral angiopathy without gangrene; E21.2 Other hyperparathyroidism; I25.2 Old myocardial infarction; I25.10 Atherosclerotic heart disease of native coronary artery without angina pectoris; K21.9 Gastro-esophageal reflux disease without esophagitis; E78.5 Hyperlipidemia, unspecified; E66.01 Morbid (severe) obesity due to excess calories; E11.21 Type 2 diabetes mellitus with diabetic nephropathy; E78.00 Pure hypercholesterolemia, unspecified; E03.9 Hypothyroidism, unspecified; I48.91 Unspecified atrial fibrillation; J44.9 Chronic obstructive pulmonary disease, unspecified; G89.29 Other chronic pain; F32.9 Major depressive disorder, single episode, unspecified; F17.210 Nicotine dependence, cigarettes, uncomplicated; F41.9 Anxiety disorder, unspecified; Z88.1 Allergy status to other antibiotic agents; Z68.41 Body mass index [BMI] 40.0-44.9, adult; Z79.82 Long term (current) use of aspirin; Z90.710 Acquired absence of both cervix and uterus; Z89.512 Acquired absence of left leg below knee; Z98.61 Coronary angioplasty status; Z79.4 Long term (current) use of insulin; Z90.49 Acquired absence of other specified parts of digestive tract; Z89.611 Acquired absence of right leg above knee; Z99.2 Dependence on renal dialysis; Z95.1 Presence of aortocoronary bypass graft
CPT/HCPCS: 15275; Q4131

== ENCOUNTER → 2018-05-13 | Outpatient (CLI) | payer BC, MEDICAID ==
[2018-04-09 07:00] VITALS: BP 152/75
== END | disposition home or self-care (01) ==
LOC: PMGWOUND 09:55
PROVIDERS: ATTEND Emergency Medicine Undersea and Hyperbaric Medicine
DX: E11.621 Type 2 diabetes mellitus with foot ulcer (principal); L97.413 Non-pressure chronic ulcer of right heel and midfoot with necrosis of muscle; I13.2 Hypertensive heart and chronic kidney disease with heart failure and with stage 5 chronic kidney disease, or end stage renal disease; E11.22 Type 2 diabetes mellitus with diabetic chronic kidney disease; N18.6 End stage renal disease; I50.43 Acute on chronic combined systolic (congestive) and diastolic (congestive) heart failure; E11.42 Type 2 diabetes mellitus with diabetic polyneuropathy; E11.51 Type 2 diabetes mellitus with diabetic peripheral angiopathy without gangrene; E11.69 Type 2 diabetes mellitus with other specified complication; M19.90 Unspecified osteoarthritis, unspecified site; J44.0 Chronic obstructive pulmonary disease with (acute) lower respiratory infection; J44.1 Chronic obstructive pulmonary disease with (acute) exacerbation; K21.9 Gastro-esophageal reflux disease without esophagitis; E78.5 Hyperlipidemia, unspecified; I25.10 Atherosclerotic heart disease of native coronary artery without angina pectoris; I48.91 Unspecified atrial fibrillation; I25.2 Old myocardial infarction; G89.29 Other chronic pain; E21.2 Other hyperparathyroidism; E78.00 Pure hypercholesterolemia, unspecified; I73.9 Peripheral vascular disease, unspecified; E66.01 Morbid (severe) obesity due to excess calories; F41.9 Anxiety disorder, unspecified; F32.9 Major depressive disorder, single episode, unspecified; Z68.41 Body mass index [BMI] 40.0-44.9, adult; Z95.810 Presence of automatic (implantable) cardiac defibrillator; Z99.2 Dependence on renal dialysis; Z95.1 Presence of aortocoronary bypass graft; Z95.5 Presence of coronary angioplasty implant and graft; Z90.710 Acquired absence of both cervix and uterus; Z90.49 Acquired absence of other specified parts of digestive tract; Z89.611 Acquired absence of right leg above knee; Z89.512 Acquired absence of left leg below knee; Z79.4 Long term (current) use of insulin; Z79.82 Long term (current) use of aspirin; Z86.74 Personal history of sudden cardiac arrest; Z87.891 Personal history of nicotine dependence; Z88.1 Allergy status to other antibiotic agents
CPT/HCPCS: 97597

== ENCOUNTER → 2018-05-20 | Outpatient (CLI) | payer BC, MEDICAID ==
[2018-04-09 07:00] VITALS: BP 152/75
[~2018-05-20] MED LIST changes: -AMLO10TA2 PO; +AMLO10TA6 PO
== END | disposition home or self-care (01) ==
LOC: PMGWOUND 09:27
PROVIDERS: ATTEND Emergency Medicine Undersea and Hyperbaric Medicine
DX: E11.621 Type 2 diabetes mellitus with foot ulcer (principal); L97.413 Non-pressure chronic ulcer of right heel and midfoot with necrosis of muscle; I13.2 Hypertensive heart and chronic kidney disease with heart failure and with stage 5 chronic kidney disease, or end stage renal disease; E11.22 Type 2 diabetes mellitus with diabetic chronic kidney disease; N18.6 End stage renal disease; I50.43 Acute on chronic combined systolic (congestive) and diastolic (congestive) heart failure; E11.51 Type 2 diabetes mellitus with diabetic peripheral angiopathy without gangrene; E11.42 Type 2 diabetes mellitus with diabetic polyneuropathy; E11.21 Type 2 diabetes mellitus with diabetic nephropathy; K21.9 Gastro-esophageal reflux disease without esophagitis; I25.10 Atherosclerotic heart disease of native coronary artery without angina pectoris; J44.1 Chronic obstructive pulmonary disease with (acute) exacerbation; M19.90 Unspecified osteoarthritis, unspecified site; E66.01 Morbid (severe) obesity due to excess calories; E78.5 Hyperlipidemia, unspecified; I25.2 Old myocardial infarction; E03.9 Hypothyroidism, unspecified; F17.210 Nicotine dependence, cigarettes, uncomplicated; G89.4 Chronic pain syndrome; E21.2 Other hyperparathyroidism; E78.00 Pure hypercholesterolemia, unspecified; I48.91 Unspecified atrial fibrillation; F32.9 Major depressive disorder, single episode, unspecified; F41.9 Anxiety disorder, unspecified; Z68.37 Body mass index [BMI] 37.0-37.9, adult; Z99.2 Dependence on renal dialysis; Z95.810 Presence of automatic (implantable) cardiac defibrillator; Z95.1 Presence of aortocoronary bypass graft; Z90.49 Acquired absence of other specified parts of digestive tract; Z89.512 Acquired absence of left leg below knee; Z90.710 Acquired absence of both cervix and uterus; Z89.611 Acquired absence of right leg above knee; Z79.82 Long term (current) use of aspirin; Z98.61 Coronary angioplasty status; Z79.4 Long term (current) use of insulin; Z86.74 Personal history of sudden cardiac arrest; Z88.1 Allergy status to other antibiotic agents
CPT/HCPCS: 97597

== ENCOUNTER → 2018-06-03 | Outpatient (CLI) | payer BC, MEDICAID ==
[2018-04-09 07:00] VITALS: BP 152/75
== END | disposition home or self-care (01) ==
LOC: PMGWOUND 09:01
PROVIDERS: ATTEND Emergency Medicine Undersea and Hyperbaric Medicine
DX: E11.621 Type 2 diabetes mellitus with foot ulcer (principal); L97.413 Non-pressure chronic ulcer of right heel and midfoot with necrosis of muscle; I13.2 Hypertensive heart and chronic kidney disease with heart failure and with stage 5 chronic kidney disease, or end stage renal disease; E11.22 Type 2 diabetes mellitus with diabetic chronic kidney disease; N18.6 End stage renal disease; I50.43 Acute on chronic combined systolic (congestive) and diastolic (congestive) heart failure; E11.51 Type 2 diabetes mellitus with diabetic peripheral angiopathy without gangrene; E11.21 Type 2 diabetes mellitus with diabetic nephropathy; E11.42 Type 2 diabetes mellitus with diabetic polyneuropathy; E11.65 Type 2 diabetes mellitus with hyperglycemia; L84 Corns and callosities; F41.9 Anxiety disorder, unspecified; F32.9 Major depressive disorder, single episode, unspecified; I25.2 Old myocardial infarction; G89.4 Chronic pain syndrome; E78.5 Hyperlipidemia, unspecified; E03.8 Other specified hypothyroidism; E21.2 Other hyperparathyroidism; I48.91 Unspecified atrial fibrillation; J44.9 Chronic obstructive pulmonary disease, unspecified; E78.00 Pure hypercholesterolemia, unspecified; K21.9 Gastro-esophageal reflux disease without esophagitis; I25.10 Atherosclerotic heart disease of native coronary artery without angina pectoris; M19.90 Unspecified osteoarthritis, unspecified site; E66.01 Morbid (severe) obesity due to excess calories; Z68.37 Body mass index [BMI] 37.0-37.9, adult; Z99.2 Dependence on renal dialysis; Z79.4 Long term (current) use of insulin; Z90.710 Acquired absence of both cervix and uterus; Z79.82 Long term (current) use of aspirin; Z90.49 Acquired absence of other specified parts of digestive tract; Z95.1 Presence of aortocoronary bypass graft; Z87.891 Personal history of nicotine dependence; Z88.1 Allergy status to other antibiotic agents
CPT/HCPCS: 11042

== ENCOUNTER → 2018-06-10 | Outpatient (CLI) | payer BC, MEDICAID ==
[2018-04-09 07:00] VITALS: BP 152/75
== END | disposition home or self-care (01) ==
LOC: PMGWOUND 08:58
PROVIDERS: ATTEND Emergency Medicine Undersea and Hyperbaric Medicine
DX: E11.621 Type 2 diabetes mellitus with foot ulcer (principal); L97.413 Non-pressure chronic ulcer of right heel and midfoot with necrosis of muscle; I13.2 Hypertensive heart and chronic kidney disease with heart failure and with stage 5 chronic kidney disease, or end stage renal disease; E11.22 Type 2 diabetes mellitus with diabetic chronic kidney disease; N18.6 End stage renal disease; I50.43 Acute on chronic combined systolic (congestive) and diastolic (congestive) heart failure; L84 Corns and callosities; E11.51 Type 2 diabetes mellitus with diabetic peripheral angiopathy without gangrene; E11.21 Type 2 diabetes mellitus with diabetic nephropathy; E11.42 Type 2 diabetes mellitus with diabetic polyneuropathy; E11.65 Type 2 diabetes mellitus with hyperglycemia; F41.9 Anxiety disorder, unspecified; J44.9 Chronic obstructive pulmonary disease, unspecified; F32.9 Major depressive disorder, single episode, unspecified; G89.4 Chronic pain syndrome; E03.8 Other specified hypothyroidism; K21.9 Gastro-esophageal reflux disease without esophagitis; E78.00 Pure hypercholesterolemia, unspecified; I25.2 Old myocardial infarction; I48.91 Unspecified atrial fibrillation; E78.5 Hyperlipidemia, unspecified; I25.10 Atherosclerotic heart disease of native coronary artery without angina pectoris; M19.90 Unspecified osteoarthritis, unspecified site; E66.01 Morbid (severe) obesity due to excess calories; Z68.37 Body mass index [BMI] 37.0-37.9, adult; Z99.2 Dependence on renal dialysis; Z79.4 Long term (current) use of insulin; Z79.82 Long term (current) use of aspirin; Z90.710 Acquired absence of both cervix and uterus; Z90.49 Acquired absence of other specified parts of digestive tract; Z87.891 Personal history of nicotine dependence
CPT/HCPCS: 99213

== ENCOUNTER → 2018-06-17 | Outpatient (CLI) | payer BC, MEDICAID ==
[2018-04-09 07:00] VITALS: BP 152/75
== END | disposition home or self-care (01) ==
LOC: PMGWOUND 08:53
PROVIDERS: ATTEND Emergency Medicine Undersea and Hyperbaric Medicine
DX: E11.621 Type 2 diabetes mellitus with foot ulcer (principal); L97.413 Non-pressure chronic ulcer of right heel and midfoot with necrosis of muscle; I13.2 Hypertensive heart and chronic kidney disease with heart failure and with stage 5 chronic kidney disease, or end stage renal disease; E11.22 Type 2 diabetes mellitus with diabetic chronic kidney disease; N18.6 End stage renal disease; I50.43 Acute on chronic combined systolic (congestive) and diastolic (congestive) heart failure; E11.21 Type 2 diabetes mellitus with diabetic nephropathy; E11.42 Type 2 diabetes mellitus with diabetic polyneuropathy; E11.51 Type 2 diabetes mellitus with diabetic peripheral angiopathy without gangrene; E11.65 Type 2 diabetes mellitus with hyperglycemia; L84 Corns and callosities; F41.9 Anxiety disorder, unspecified; F32.9 Major depressive disorder, single episode, unspecified; J44.9 Chronic obstructive pulmonary disease, unspecified; E21.2 Other hyperparathyroidism; G89.29 Other chronic pain; I48.91 Unspecified atrial fibrillation; M19.90 Unspecified osteoarthritis, unspecified site; K21.9 Gastro-esophageal reflux disease without esophagitis; E78.5 Hyperlipidemia, unspecified; I25.2 Old myocardial infarction; E03.8 Other specified hypothyroidism; E78.00 Pure hypercholesterolemia, unspecified; I25.10 Atherosclerotic heart disease of native coronary artery without angina pectoris; E66.01 Morbid (severe) obesity due to excess calories; Z68.37 Body mass index [BMI] 37.0-37.9, adult; Z99.2 Dependence on renal dialysis; Z79.4 Long term (current) use of insulin; Z90.710 Acquired absence of both cervix and uterus; Z90.49 Acquired absence of other specified parts of digestive tract; Z87.891 Personal history of nicotine dependence
CPT/HCPCS: 99214; G0463

== ENCOUNTER → 2018-07-01 | Outpatient (CLI) | payer BC, MEDICAID ==
[2018-04-09 07:00] VITALS: BP 152/75
== END | disposition home or self-care (01) ==
LOC: PMGWOUND 08:54
PROVIDERS: ATTEND Emergency Medicine Undersea and Hyperbaric Medicine
DX: E11.621 Type 2 diabetes mellitus with foot ulcer (principal); L97.413 Non-pressure chronic ulcer of right heel and midfoot with necrosis of muscle; E11.51 Type 2 diabetes mellitus with diabetic peripheral angiopathy without gangrene; E11.21 Type 2 diabetes mellitus with diabetic nephropathy; E11.42 Type 2 diabetes mellitus with diabetic polyneuropathy; E11.65 Type 2 diabetes mellitus with hyperglycemia; I13.2 Hypertensive heart and chronic kidney disease with heart failure and with stage 5 chronic kidney disease, or end stage renal disease; E11.22 Type 2 diabetes mellitus with diabetic chronic kidney disease; N18.6 End stage renal disease; I50.43 Acute on chronic combined systolic (congestive) and diastolic (congestive) heart failure; L84 Corns and callosities; F41.9 Anxiety disorder, unspecified; F32.9 Major depressive disorder, single episode, unspecified; J44.9 Chronic obstructive pulmonary disease, unspecified; G89.29 Other chronic pain; E21.2 Other hyperparathyroidism; E03.8 Other specified hypothyroidism; E78.5 Hyperlipidemia, unspecified; I25.10 Atherosclerotic heart disease of native coronary artery without angina pectoris; I48.91 Unspecified atrial fibrillation; K21.9 Gastro-esophageal reflux disease without esophagitis; E78.00 Pure hypercholesterolemia, unspecified; I25.2 Old myocardial infarction; E66.01 Morbid (severe) obesity due to excess calories; Z68.37 Body mass index [BMI] 37.0-37.9, adult; Z99.2 Dependence on renal dialysis; Z79.4 Long term (current) use of insulin; Z79.82 Long term (current) use of aspirin; Z90.710 Acquired absence of both cervix and uterus; Z90.49 Acquired absence of other specified parts of digestive tract; Z95.1 Presence of aortocoronary bypass graft; Z87.891 Personal history of nicotine dependence; Z89.522 Acquired absence of left knee; Z89.521 Acquired absence of right knee; Z95.810 Presence of automatic (implantable) cardiac defibrillator; Z95.5 Presence of coronary angioplasty implant and graft; Z88.1 Allergy status to other antibiotic agents
CPT/HCPCS: 97597

== ENCOUNTER → 2018-07-15 | Outpatient (CLI) | payer BC, MEDICAID ==
[2018-04-09 07:00] VITALS: BP 152/75
== END | disposition home or self-care (01) ==
LOC: PMGWOUND 08:59
PROVIDERS: ATTEND Emergency Medicine Undersea and Hyperbaric Medicine
DX: E11.621 Type 2 diabetes mellitus with foot ulcer (principal); L97.418 Non-pressure chronic ulcer of right heel and midfoot with other specified severity; E11.21 Type 2 diabetes mellitus with diabetic nephropathy; E11.42 Type 2 diabetes mellitus with diabetic polyneuropathy; E11.65 Type 2 diabetes mellitus with hyperglycemia; E11.51 Type 2 diabetes mellitus with diabetic peripheral angiopathy without gangrene; I13.2 Hypertensive heart and chronic kidney disease with heart failure and with stage 5 chronic kidney disease, or end stage renal disease; E11.22 Type 2 diabetes mellitus with diabetic chronic kidney disease; N18.6 End stage renal disease; I50.9 Heart failure, unspecified; L84 Corns and callosities; F41.9 Anxiety disorder, unspecified; G89.29 Other chronic pain; F32.9 Major depressive disorder, single episode, unspecified; J44.9 Chronic obstructive pulmonary disease, unspecified; I25.2 Old myocardial infarction; E03.8 Other specified hypothyroidism; E21.2 Other hyperparathyroidism; E78.5 Hyperlipidemia, unspecified; E78.00 Pure hypercholesterolemia, unspecified; I48.91 Unspecified atrial fibrillation; I25.10 Atherosclerotic heart disease of native coronary artery without angina pectoris; K21.9 Gastro-esophageal reflux disease without esophagitis; M19.90 Unspecified osteoarthritis, unspecified site; E66.01 Morbid (severe) obesity due to excess calories; Z68.37 Body mass index [BMI] 37.0-37.9, adult; Z99.2 Dependence on renal dialysis; Z79.4 Long term (current) use of insulin; Z87.891 Personal history of nicotine dependence; Z90.710 Acquired absence of both cervix and uterus; Z90.49 Acquired absence of other specified parts of digestive tract
CPT/HCPCS: 99213

== ENCOUNTER 2018-07-18 08:27 | Outpatient (CLI) | payer BC, MEDICAID ==
[2018-07-18] VITALS (12 sets, daily range): BP systolic 134–162; BP diastolic 50–107
[~2018-07-18] VITALS: Ht 165.1 cm; Wt 99.8 kg
[2018-07-18 09:06] LABS: BASO % 1 % (0-3); EOS # 0.3 x10^3/uL (0.0-0.7); EOS % 4 % (0-3); HEMATOCRIT 35.1 % (36.0-47.0); HEMOGLOBIN 11.8 g/dL (12.0-15.5); LYMPH # 1.1 x10^3/uL (1.0-4.8); LYMPH % 15 % (24-48); MEAN CORPUSCULAR HEMOGLOBIN 32 pg (25-35); MEAN CORPUSCULAR HGB CONC 34 g/dL (31-37); MEAN CORPUSCULAR VOLUME 94 fL (79-100); MONO # 0.5 x10^3/uL (0.0-1.1); MONO % 7 % (0-9); NEUT # 5.2 x10^3uL (1.8-7.7); NEUT % 73 % (31-73); PLATELET COUNT 150 x10^3/uL (140-400); RED BLOOD COUNT 3.74 x10^6/uL (3.50-5.40); RED CELL DISTRIBUTION WIDTH 14.7 % (11.5-14.5); WHITE BLOOD COUNT 7.2 x10^3/uL (4.0-11.0)
[2018-07-18 09:15] LABS: PROTHROMBIN TIME PATIENT 13.4 SEC (11.7-14.0)
[2018-07-18 09:20] LABS: CALCIUM 8.5 mg/dL (8.5-10.1); CREATININE 3.2 mg/dL (0.6-1.0); GFR 14.5; POTASSIUM 4.5 mmol/L (3.5-5.1)
[2018-07-18] MEDS ORDERED: IODIXANOL 320 MG/ML 100 ML VIAL. ONE (09:35)
[2018-07-18] MEDS ORDERED: LIDOCAINE WITH 8.4% SOD BICARB 3 ML DISP.SYRIN. ONE (09:36)
[2018-07-18] MEDS ORDERED: fentaNYL PF VIAL 100 MCG/2 ML VIAL ONE (09:43)
[2018-07-18] MEDS ORDERED: MIDAZOLAM HCL/PF 2 MG/2 ML VIAL. ONE (09:43)
[2018-07-18] MEDS ORDERED: HEPARIN for IV BOLUS 10,000 UNIT/10 ML VIAL. ONE (09:59)
--- NOTE | 2018-07-18 10:20 | PDOC1 ---
History and Physical Date of Procedure Date of Admission History of Present Illness Reason for Visit AVF with poor flows Past Medical History Past Medical History see nursing pre-op assessment Current Medications Current Medications Current Medications Iodixanol (Visipaque 320) 100 ml STK-MED ONCE .ROUTE ; Start 07/18/18 at 09:35 ; Stop 07/18/18 at 09:36; Status DC Lidocaine/Sodium Bicarbonate (Buffered Lidocaine 1%) 3 ml STK-MED ONCE .ROUTE ; Start 07/18/18 at 09:36; Stop 07/18/18 at 09:37; Status DC Heparin Sodium/ Sodium Chloride 500 ml @ As Directed STK-MED ONCE .ROUTE ; Start 07/18/18 at 09:36; Stop 07/18/18 at 09:37; Status DC Midazolam HCl (Versed) 2 mg STK-MED ONCE .ROUTE ; Start 07/18/18 at 09:43; Stop 07/18/18 at 09:44; Status DC Fentanyl Citrate (Fentanyl 2ml Vial) 100 mcg STK-MED ONCE .ROUTE ; Start at 09:43; Stop 07/18/18 at 09:44; Status DC Heparin Sodium (Porcine) (Heparin Sodium) 10,000 unit STK-MED ONCE .ROUTE ; Start 07/18/18 at 09:59; Stop 07/18/18 at 10:00; Status DC Heparin Sodium/ Sodium Chloride (HEPARIN for ARTERIAL LINE FLUSH) 1,000 unit 1X ONCE IART ; Start 07/18/18 at 10:15; Stop 07/18/18 at 10:16; Status UNV Lidocaine/Sodium Bicarbonate (Buffered Lidocaine 1%) 2 ml 1X ONCE IJ ; Start 07/18/18 at 10:15; Stop 07/18/18 at 10:16; Status UNV Midazolam HCl (Versed) 1 mg 1X ONCE IV ; Start 07/18/18 at 10:15; Stop at 10:16; Status UNV Fentanyl Citrate (Fentanyl 2ml Vial) 50 mcg 1X ONCE IV ; Start 07/18/18 at 10: 15; Stop 07/18/18 at 10:16; Status UNV Iodixanol (Visipaque 320) 35 ml 1X ONCE IART ; Start 07/18/18 at 10:15; Stop 07/18/18 at 10:16; Status UNV Active Scripts Active Albuterol Sulfate Neb Soln (Albuterol Sulfate) 2.5 Mg/3 Ml Vial.neb 2.5 Mg NEB RTQID Reported Levothyroxine Sodium 150 Mcg Tablet 150 Mcg PO DAILYAC Novolog Flexpen (Insulin Aspart) 100 Unit/1 Ml Insuln.pen 5 Unit SQ TIDWMEALS Allergies Allergies: Coded Allergies: No Known Drug Allergies (Unverified , 07/18/18) Physical Exam Vital Signs Vital Signs Date Time Temp Pulse Resp B/P (MAP) Pulse Ox O2 Delivery O2 Flow Rate FiO2 07/18/18 09:34 Nasal Cannula 3.0 07/18/18 09:16 98.1 70 18 143/68 (93) 95 98.1 Other see nursing pre-op assessment Assessment Assessment AVF with poor flows Plan Plan fistulagram with intervention DANIELLA MANCIA MD Jul 18, 2018 10:20
--- NOTE | 2018-07-18 10:21 | PDOC ---
MODERATE SEDATION ASSESSMENT RISKS/ALTERNATIVES Risks/Alternatives Risks and alternatives of this type of sedation and procedure discussed with: RISK/ALTERNATIVES: Patient H & P ON CHART H & P H & P on chart and reviewed for co-morbid conditions and appropriate labs. H&P ON CHART: Yes STATUS PREG STATUS ASSESSED: Yes MEDS/ALLERGIES REVIEWED Meds/Allergies Reviewed Medications and Allergies including time and route of recently administered narcotics and sedatives. MEDS/ALLERGIES REVIEWED: Yes ASA RATING ASA RATING: II AIRWAY ASSESSMENT Airway Assessment Airway patency, oral function limitations, presence of caps, crowns, dentures, partials, and ability to extend neck assessed. AIRWAY ASSESSMENT: Yes MALLAMPATI SCORE MALLAMPATI SCORE: II PRE-SEDATION ASSESSMENT PRE-SEDATION ASSESSMENT: Yes DANIELLA MANCIA MD Jul 18, 2018 10:21
--- NOTE | 2018-07-18 10:21 | PDOC ---
BRIEF OPERATIVE NOTE Pre-Op Diagnosis AVF with poor flows Post-Op Diagnosis same Procedure Performed Fistulagram with angioplasty of proximal venous outflow Surgeon Florina Anesthesia Type: Conscious Sedation Findings Tandem stenoses at the proximal venous outflow improves s/p angioplasty Complications No immediate DANIELLA MANCIA MD Jul 18, 2018 10:21
[2018-07-18] MEDS: IODIXANOL 320 MG/ML 100 ML VIAL. IART ONE (10:26)
[2018-07-18] MEDS: LIDOCAINE WITH 8.4% SOD BICARB 3 ML DISP.SYRIN. IJ ONE (10:26)
[2018-07-18] MEDS: fentaNYL PF VIAL 100 MCG/2 ML VIAL IV ONE (10:27)
[2018-07-18] MEDS: MIDAZOLAM HCL/PF 2 MG/2 ML VIAL. IV ONE (10:27)
[2018-07-18] MEDS: HEPARIN for IV BOLUS 10,000 UNIT/10 ML VIAL. IV ONE (10:31)
--- NOTE | 2018-07-19 11:07 | RAD ---
Procedure: Left upper extremity diagnostic fistulogram and angioplasty the venous outflow Clinical Indication: 67-year-old female with left AV fistula and poor venous flows. Sedation: Conscious sedation was administered with a total intraprocedural [id number] time of 35 minutes. The patient was monitored by a qualified independent observer throughout the time of sedation. Please refer to the medical record for exact doses of medications utilized to achieve moderate sedation. Antibiotics: None Exposure: Kerma-Area Product: 26 Gycm2 Sterility: All elements of maximal sterile barrier technique including the use of a cap, mask, sterile gown, sterile gloves, large sterile sheet, appropriate hand hygiene, and 2% chlorhexidine for cutaneous antisepsis (or acceptable alternative antiseptic per current guidelines) were followed for this procedure. If ultrasound guidance was utilized, sterile ultrasound techniques were followed including use of a sterile probe cover. Consent: The procedure was explained in its entirety to the patient or the patients designated healthcare sales representative by a member of the treatment team, including a discussion of the risks, benefits and commonly accepted alternatives to the procedure, as well as the expected consequences of no therapy whatsoever. Discussion of the risks included, but was not limited to, those that are most frequent and those that are rare but possibly severe or life-threatening, as well as the possibility of unforeseen complications. Technique and Findings: Following informed consent, the patient was prepped and draped in usual sterile fashion. Ultrasound interrogation of the AV fistula was performed demonstrate patency of the arterial anastomosis, with tandem high-grade stenoses within the proximal venous outflow. 1% lidocaine was used to achieve local anesthesia over the proximal venous outflow. Under ultrasound guidance, a 21-gauge micropuncture needle was used to gain access to the circuit. The needle was exchanged over wire for a 5 English sheath. A Hardcopy ultrasound image was recorded. Contrast venography was then performed confirming the presence of 2 tandem high-grade stenoses within the proximal venous limb, with each stenosis corresponding to the areas most frequently accessed. The remainder of the venous outflow is widely patent. A pacemaker is present within the cephalic vein, and there is some mild narrowing of the cephalic vein at the area of the pacemaker leads, however flow remains brisk. There is also mild stenosis of the subclavian/brachiocephalic junction, though flow remains brisk through this region as well. The patient was then given 5000 units of heparin intravenously, and the lesions were crossed with an angled catheter. The catheter was then exchanged over wire for 6 mm x 100 mm angioplasty balloon which was used to angioplasty both lesions simultaneously. The balloon was seen to be slightly undersized, and was subsequently exchanged for a 7 mm x 80 mm angioplasty balloon. With the balloon inflated, reflux fistulography was performed to interrogate the arterial anastomosis which was seen to be widely patent. Following balloon angioplasty, contrast fistulography demonstrated significant improvement in the appearance of both stenosis with jehovah's witness of brisk flow. A purse string suture was applied as the sheath was removed and hemostasis was achieved with manual compression. Complications: No immediate Impression: 1. 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 These are improved following balloon angioplasty with 7 mm balloon. Future puncture should be directed towards different areas of the fistula.
[2018-07-23] MEDS ORDERED: LISI-130 PO (08:21)
== END 2018-07-18 12:45 | disposition home or self-care (01) ==
LOC: INTRAD 08:27
PROVIDERS: ATTEND Internal Medicine Nephrology
DX: T82.858A Stenosis of other vascular prosthetic devices, implants and grafts, initial encounter (principal); Z79.899 Other long term (current) drug therapy; Z79.01 Long term (current) use of anticoagulants; Y83.8 Other surgical procedures as the cause of abnormal reaction of the patient, or of later complication, without mention of misadventure at the time of the procedure; Y92.89 Other specified places as the place of occurrence of the external cause
CPT/HCPCS: 36415; 36902; 76937; 80048; 85025; 85610; 85730; 99152; 99153; C1725; C1769; C1892; C1894; J1644; J2250; J3010; Q9967

== ENCOUNTER 2018-07-22 04:29 | Inpatient (IN) | payer BC, MEDICAID ==
[~2018-07-22] VITALS: Ht 160 cm; Wt 98.0 kg
[2018-07-22] MEDS ORDERED: ALBUTEROL SULFATE 2.5 MG/3 ML NEBU. ONE (04:38)
[2018-07-22] MEDS ORDERED: IPRATROPIUM BROMIDE 0.5 MG/2.5 ML NEBU. ONE (04:38)
[2018-07-22 04:57] LABS: BASO % 0 % (0-3); EOS # 0.2 x10^3/uL (0.0-0.7); EOS % 3 % (0-3); HEMATOCRIT 34.7 % (36.0-47.0); HEMOGLOBIN 11.6 g/dL (12.0-15.5); LYMPH % 11 % (24-48); MEAN CORPUSCULAR HEMOGLOBIN 31 pg (25-35); MEAN CORPUSCULAR HGB CONC 33 g/dL (31-37); MEAN CORPUSCULAR VOLUME 94 fL (79-100); MONO # 0.5 x10^3/uL (0.0-1.1); MONO % 6 % (0-9); NEUT # 7.1 x10^3uL (1.8-7.7); NEUT % 80 % (31-73); PLATELET COUNT 136 x10^3/uL (140-400); RED BLOOD COUNT 3.69 x10^6/uL (3.50-5.40); RED CELL DISTRIBUTION WIDTH 15.3 % (11.5-14.5); WHITE BLOOD COUNT 8.8 x10^3/uL (4.0-11.0)
--- NOTE | 2018-07-22 04:58 | PHYS DOC ---
Past Medical History Past Medical History: CAD, CHF, COPD, Diabetes-Type II, Renal Failure, Vascular Disease Additional Past Medical Histor: CARDIAC ARREST Past Surgical History: Cholecystectomy, , Pacemaker Additional Past Surgical Histo: AICD, VASCULAR STENTS, CARDIAC STENTS, CADAVER ARTERY, LEFT BKA Alcohol Use: None Drug Use: None Adult General Chief Complaint Chief Complaint: SHORTNESS OF BREATH [facility] HPI Patient is a 68-year-old female who presents with complaint of shortness of breath along with nausea and vomiting. Patient states that she has a history of COPD and wears 3 L of oxygen at home. She indicates that her shortness of breath and gotten worse yesterday and she also developed nausea with vomiting last night. Patient denies any associated abdominal pain. She also denies any chest pain. She indicates that her last normal bowel movement was this morning. She is a dialysis patient and last dialysis was on Sunday. She states that she does still make urine but states that she has no pain with urination. Patient states that she has had an increase in coughing that has been productive of a small amount of yellowish colored sputum. She denies any fever. She does indicate that shortness breath is worsened with minimal exertion. Review of Systems Review of Systems Constitutional: Denies fever or chills [] HENT: Reports congestion[] Respiratory: Complains of cough and shortness of breath [] Cardiovascular: No additional information not addressed in HPI [] GI: Denies abdominal pain. Complains of nausea and vomiting. [] : Denies dysuria or hematuria [] Integument: Denies rash or skin lesions [] All other systems were reviewed and found to be within normal limits, except as documented in this note. Current Medications Current Medications Current Medications Medications (Trade) Dose Ordered Sig/Slick Start Time Stop Time Status Last Admin Dose Admin Albuterol Sulfate (Ventolin Neb Soln) 7.5 mg 1X ONCE 07/22/18 05:00 07/22/18 05:01 DC 07/22/18 04:52 7.5 MG Albuterol/ Ipratropium (Duoneb) 3 ml 1X ONCE 07/22/18 05:45 07/22/18 05:51 DC 07/22/18 05:48 3 ML Ipratropium [place] (Atrovent) 0.5 mg 1X ONCE 07/22/18 05:00 07/22/18 05:01 DC 07/22/18 04:52 0.5 MG Methylprednisolone Sodium Succinate (SOLU-Medrol 125MG VIAL) 125 mg 1X ONCE 07/22/18 05:00 07/22/18 05:01 DC 07/22/18 05:42 125 MG Ondansetron HCl (Zofran) 4 mg 1X ONCE 07/22/18 05:00 07/22/18 05:01 DC 07/22/18 05:42 4 MG Allergies Allergies Allergies Coded Allergies Type Severity Reaction Last Updated Verified No Known Drug Allergies 07/18/18 No Physical Exam Physical Exam Constitutional: Well developed, well nourished, no acute distress, non-toxic appearance. [] HENT: Normocephalic, atraumatic, bilateral external ears normal, oropharynx moist, no oral exudates, nose normal. [] Eyes: PERRLA, EOMI, conjunctiva normal, no discharge. [] Neck: Normal range of motion, no tenderness, supple, no stridor. [] Cardiovascular: Heart rate regular rhythm [] Lungs & Thorax: There dementia breath sounds noted bilaterally with fine rhonchi in the lower lobes.[] Abdomen: Bowel sounds normal, soft, no tenderness, no masses, no pulsatile masses. [] Skin: Warm, dry, no erythema, no rash. [] Extremities: No tenderness, no cyanosis, no clubbing, left BKA is noted. [] Neurologic: Alert and oriented X 3, normal motor function, normal sensory function, no focal deficits noted. [] Current Patient Data Vital Signs Vital Signs Date Time Temp Pulse Resp B/P (MAP) Pulse Ox O2 Delivery O2 Flow Rate FiO2 07/22/18 05:48 94 Nasal Cannula 4.0 07/22/18 04:30 98.7 107 26 193/83 (119) 98.7 Lab Values Laboratory Tests Test 07/22/18 04:40 07/22/18 05:11 White Blood Count 8.8 x10^3/uL (4.0-11.0) Red Blood Count 3.69 x10^6/uL (3.50-5.40) Hemoglobin 11.6 g/dL (12.0-15.5) L Hematocrit 34.7 % (36.0-47.0) L Mean Corpuscular Volume 94 fL (79-100) Mean Corpuscular Hemoglobin 31 pg (25-35) Mean Corpuscular Hemoglobin Concent 33 g/dL (31-37) Red Cell Distribution Width 15.3 % (11.5-14.5) H Platelet Count 136 x10^3/uL (140-400) L Neutrophils (%) (Auto) 80 % (31-73) H Lymphocytes (%) (Auto) 11 % (24-48) L Monocytes (%) (Auto) 6 % (0-9) Eosinophils (%) (Auto) 3 % (0-3) Basophils (%) (Auto) 0 % (0-3) Neutrophils # (Auto) 7.1 x10^3uL (1.8-7.7) Lymphocytes # (Auto) 1.0 x10^3/uL (1.0-4.8) Monocytes # (Auto) 0.5 x10^3/uL (0.0-1.1) Eosinophils # (Auto) 0.2 x10^3/uL (0.0-0.7) Basophils # (Auto) 0.0 x10^3/uL (0.0-0.2) Sodium Level 139 mmol/L (136-145) Potassium Level 5.0 mmol/L (3.5-5.1) Chloride Level 103 mmol/L (98-107) Carbon Dioxide Level 23 mmol/L (21-32) Anion Gap 13 (6-14) Blood Urea Nitrogen 71 mg/dL (7-20) H Creatinine 4.4 mg/dL (0.6-1.0) H Estimated GFR (Cockcroft-Gault) 10.0 BUN/Creatinine Ratio 16 (6-20) Glucose Level 183 mg/dL (70-99) H Calcium Level 8.0 mg/dL (8.5-10.1) L Total Bilirubin 0.3 mg/dL (0.2-1.0) Aspartate Amino Transferase (AST) 17 U/L (15-37) Alanine Aminotransferase (ALT) 13 U/L (14-59) L Alkaline Phosphatase 126 U/L (46-116) H Total Protein 7.6 g/dL (6.4-8.2) Albumin 3.1 g/dL (3.4-5.0) L Albumin/Globulin Ratio 0.7 (1.0-1.7) L Laboratory Tests 07/22/18 04:40 Laboratory Tests 07/22/18 05:11 EKG EKG [] Radiology/Procedures Radiology/Procedures [] Course & Med Decision Making Course & Med Decision Making Pertinent Labs and Imaging studies reviewed. (See chart for details) [] Dragon Disclaimer Dragon Disclaimer This electronic medical record was generated, in whole or in part, using a voice recognition dictation system. Departure Departure Impression: Primary Impression: COPD exacerbation Additional Impressions: Acute on chronic systolic CHF (congestive heart failure) ESRD (end stage renal disease) on dialysis Disposition: ADMITTED INPATIENT Admitting Physician: Nidia Pepper Condition: IMPROVED Referrals: Tristan PENG MD (PCP) Problem Qualifiers MONAE MILLARD Jr. DO Jul 22, 2018 04:58
[2018-07-22] MEDS ORDERED: ONDANSETRON PF 4 MG/2 ML VIAL. IV ONE (05:00)
[2018-07-22] MEDS ORDERED: methylPREDNISolone SOD SUCC PF 125 MG/2 ML VIAL. IV ONE (05:00)
[2018-07-22] MEDS ORDERED: ALBUTEROL SULFATE 2.5 MG/3 ML NEBU. NEB ONE (05:00)
[2018-07-22] MEDS ORDERED: IPRATROPIUM BROMIDE 0.5 MG/2.5 ML NEBU. NEB ONE (05:00)
[2018-07-22 05:39] LABS: ALBUMIN 3.1 g/dL (3.4-5.0); ALBUMIN/GLOBULIN RATIO 0.7 (1.0-1.7); CREATININE 4.4 mg/dL (0.6-1.0); TOTAL BILIRUBIN 0.3 mg/dL (0.2-1.0); TOTAL PROTEIN 7.6 g/dL (6.4-8.2)
[2018-07-22] MEDS ORDERED: IPRATRPIUM/ALBUTEROL 0.5/2.5MG 3 ML NEBU. NEB ONE (05:45)
--- NOTE | 2018-07-22 05:47 | RAD ---
One view chest 5:17 AM HISTORY: Dyspnea Portable AP view upright chest COMPARISON: April 08, 2018 The heart is mildly enlarged. The pulmonary vessels appear somewhat full and congested. There is linear and hazy opacities in the lung bases. Left-sided defibrillator is again seen. IMPRESSION: Mild to moderate CHF. This appears improved. Electronically signed by: Abhay Grande III, MD (07/22/2018 5:44 AM) [facility]
--- NOTE | 2018-07-22 06:55 | EKG ---
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
--- NOTE | 2018-07-22 08:57 | PDOC ---
PROGRESS NOTES Subjective Subjective Patient reports breathing is better than earlier today. No emesis since last night. Denies abdominal pain. Objective Objective Vital Signs Date Time Temp Pulse Resp B/P (MAP) Pulse Ox O2 Delivery O2 Flow Rate FiO2 07/22/18 07:03 97 22 157/67 (97) 90 Nasal Cannula 5.0 07/22/18 04:30 98.7 98.7 Physical Exam Abdomen: Normal bowel sounds, Soft, No tenderness Heart: Regular rate Extremities: Other (L BKA. R LE without edema. Healed ulcer R heal, first two toes absent) General: Alert, Oriented X3, No acute distress Lungs: Other (BS decreased througout, few crackles bilateral bases) Plan Plan of Care 1. Acute on chronic respiratory failure - SOA seems improved with nebulizer tx and Solumedrol in ER. Not hypoxic on O2. Continue nebs. 2. N/V - patient states this was really why she came to ER. Has resolved, patient wants to eat this AM. Diet ordered. 3. ESRD - stable. Patient reports she stopped dialysis one hour early on Sunday as she had something to do. Denies missing other treatments. Continue dialysis per Renal. 4. CHF with systolic and diastolic dysfunction - stable per patient report. Not on any medication for this at this time. 5. hypothyroidism - patient stopped taking her Levothyroxine months ago per her report. When she saw Dr Hernandez in the office last month her lab showed elevated TSH and low T4, as expected, and she was advised to resume taking it daily, which she did. Importance of continuing this discussed with her, including possible contribution to CHF. 6. DM2 - had been on insulin for this but stopped the Lantus awhile ago and takes the mealtime doses rarely. Last A1C was 5.3. Continue to follow FSBG here , anticipate some elevation due to the Solumedrol she was given in ER. 7. HTN - patient not taking any medication for this at this time. Monitor BP. Comment Review of Relevant I have reviewed the following items afua (where applicable) has been applied. Labs Laboratory Tests Test 07/22/18 04:40 07/22/18 05:11 White Blood Count 8.8 x10^3/uL (4.0-11.0) Red Blood Count 3.69 x10^6/uL (3.50-5.40) Hemoglobin 11.6 g/dL (12.0-15.5) Hematocrit 34.7 % (36.0-47.0) Mean Corpuscular Volume 94 fL (79-100) Mean Corpuscular Hemoglobin 31 pg (25-35) Mean Corpuscular Hemoglobin Concent 33 g/dL (31-37) Red Cell Distribution Width 15.3 % (11.5-14.5) Platelet Count 136 x10^3/uL (140-400) Neutrophils (%) (Auto) 80 % (31-73) Lymphocytes (%) (Auto) 11 % (24-48) Monocytes (%) (Auto) 6 % (0-9) Eosinophils (%) (Auto) 3 % (0-3) Basophils (%) (Auto) 0 % (0-3) Neutrophils # (Auto) 7.1 x10^3uL (1.8-7.7) Lymphocytes # (Auto) 1.0 x10^3/uL (1.0-4.8) Monocytes # (Auto) 0.5 x10^3/uL (0.0-1.1) Eosinophils # (Auto) 0.2 x10^3/uL (0.0-0.7) Basophils # (Auto) 0.0 x10^3/uL (0.0-0.2) Sodium Level 139 mmol/L (136-145) Potassium Level 5.0 mmol/L (3.5-5.1) Chloride Level 103 mmol/L (98-107) Carbon Dioxide Level 23 mmol/L (21-32) Anion Gap 13 (6-14) Blood Urea Nitrogen 71 mg/dL (7-20) Creatinine 4.4 mg/dL (0.6-1.0) Estimated GFR (Cockcroft-Gault) 10.0 BUN/Creatinine Ratio 16 (6-20) Glucose Level 183 mg/dL (70-99) Calcium Level 8.0 mg/dL (8.5-10.1) Total Bilirubin 0.3 mg/dL (0.2-1.0) Aspartate Amino Transf (AST/SGOT) 17 U/L (15-37) Alanine Aminotransferase (ALT/SGPT) 13 U/L (14-59) Alkaline Phosphatase 126 U/L (46-116) YX-Ywx-E-Type Natriuretic Peptide > 48233 pg/mL (0-124) Total Protein 7.6 g/dL (6.4-8.2) Albumin 3.1 g/dL (3.4-5.0) Albumin/Globulin Ratio 0.7 (1.0-1.7) Laboratory Tests Test 07/22/18 04:40 07/22/18 05:11 White Blood Count 8.8 x10^3/uL (4.0-11.0) Red Blood Count 3.69 x10^6/uL (3.50-5.40) Hemoglobin 11.6 g/dL (12.0-15.5) Hematocrit 34.7 % (36.0-47.0) Mean Corpuscular Volume 94 fL (79-100) Mean Corpuscular Hemoglobin 31 pg (25-35) Mean Corpuscular Hemoglobin Concent 33 g/dL (31-37) Red Cell Distribution Width 15.3 % (11.5-14.5) Platelet Count 136 x10^3/uL (140-400) Neutrophils (%) (Auto) 80 % (31-73) Lymphocytes (%) (Auto) 11 % (24-48) Monocytes (%) (Auto) 6 % (0-9) Eosinophils (%) (Auto) 3 % (0-3) Basophils (%) (Auto) 0 % (0-3) Neutrophils # (Auto) 7.1 x10^3uL (1.8-7.7) Lymphocytes # (Auto) 1.0 x10^3/uL (1.0-4.8) Monocytes # (Auto) 0.5 x10^3/uL (0.0-1.1) Eosinophils # (Auto) 0.2 x10^3/uL (0.0-0.7) Basophils # (Auto) 0.0 x10^3/uL (0.0-0.2) Sodium Level 139 mmol/L (136-145) Potassium Level 5.0 mmol/L (3.5-5.1) Chloride Level 103 mmol/L (98-107) Carbon Dioxide Level 23 mmol/L (21-32) Anion Gap 13 (6-14) Blood Urea Nitrogen 71 mg/dL (7-20) Creatinine 4.4 mg/dL (0.6-1.0) Estimated GFR (Cockcroft-Gault) 10.0 BUN/Creatinine Ratio 16 (6-20) Glucose Level 183 mg/dL (70-99) Calcium Level 8.0 mg/dL (8.5-10.1) Total Bilirubin 0.3 mg/dL (0.2-1.0) Aspartate Amino Transf (AST/SGOT) 17 U/L (15-37) Alanine Aminotransferase (ALT/SGPT) 13 U/L (14-59) Alkaline Phosphatase 126 U/L (46-116) TR-Gse-I-Type Natriuretic Peptide > 32718 pg/mL (0-124) Total Protein 7.6 g/dL (6.4-8.2) Albumin 3.1 g/dL (3.4-5.0) Albumin/Globulin Ratio 0.7 (1.0-1.7) Medications Current Medications Albuterol Sulfate (Ventolin Neb Soln) 2.5 mg STK-MED ONCE .ROUTE ; Start at 04:38; Stop 07/22/18 at 04:39; Status DC Ipratropium [place] (Atrovent) 0.5 mg STK-MED ONCE .ROUTE ; Start 07/22/18 at 04:38; Stop 07/22/18 at 04:39; Status DC Ipratropium [place] (Atrovent) 0.5 mg 1X ONCE NEB Last administered on at 04:52; Start 07/22/18 at 05:00; Stop 07/22/18 at 05:01; Status DC Methylprednisolone Sodium Succinate (SOLU-Medrol 125MG VIAL) 125 mg 1X ONCE IV Last administered on 07/22/18at 05:42; Start 07/22/18 at 05:00; Stop at 05:01; Status DC Ondansetron HCl (Zofran) 4 mg 1X ONCE IV Last administered on 07/22/18at 05:42 ; Start 07/22/18 at 05:00; Stop 07/22/18 at 05:01; Status DC Albuterol Sulfate (Ventolin Neb Soln) 7.5 mg 1X ONCE NEB Last administered on 07/22/18at 04:52; Start 07/22/18 at 05:00; Stop 07/22/18 at 05:01; Status DC Albuterol/ Ipratropium (Duoneb) 3 ml 1X ONCE NEB Last administered on at 05:48; Start 07/22/18 at 05:45; Stop 07/22/18 at 05:51; Status DC Albuterol/ Ipratropium (Duoneb) 3 ml RTQID NEB ; Start 07/22/18 at 08:00; Stop 07/23/18 at 07:59 Active Scripts Active Albuterol Sulfate Neb Soln (Albuterol Sulfate) 2.5 Mg/3 Ml Vial.neb 2.5 Mg NEB RTQID Reported Levothyroxine Sodium 150 Mcg Tablet 150 Mcg PO DAILYAC Novolog Flexpen (Insulin Aspart) 100 Unit/1 Ml Insuln.pen 5 Unit SQ TIDWMEALS Vitals/I & O Vital Sign - Last 24 Hours 07/22/18 07/22/18 07/22/18 07/22/18 04:30 04:42 05:15 05:45 Temp 98.7 98.7 Pulse 107 95 92 Resp 26 24 26 B/P (MAP) 193/83 (119) 184/74 (110) 173/74 (107) Pulse Ox 82 94 89 90 O2 Delivery Room Air Nasal Cannula Nasal Cannula Nasal Cannula O2 Flow Rate 3.0 3.0 3.0 07/22/18 07/22/18 07/22/18 07/22/18 05:48 06:00 06:15 06:45 Pulse 94 92 Resp 24 24 B/P (MAP) 173/72 (105) 162/72 (102) Pulse Ox 94 88 90 90 O2 Delivery Nasal Cannula Nasal Cannula Nasal Cannula Nasal Cannula O2 Flow Rate 4.0 3.0 5.0 5.0 07/22/18 07:03 Pulse 97 Resp 22 B/P (MAP) 157/67 (97) Pulse Ox 90 O2 Delivery Nasal Cannula O2 Flow Rate 5.0 JOCELYN FERNÁNDEZ MD Jul 22, 2018 08:57
[2018-07-22] MEDS ORDERED: ONDANSETRON PF 4 MG/2 ML VIAL. IV PRN (09:00)
[2018-07-22] MEDS ORDERED: DEXTROSE 50% 25 GM / 50ML DISP.SYRIN. IV PRN (09:00)
[2018-07-22] MEDS ORDERED: ACETAMINOPHEN 500 MG TABLET PO PRN (09:00)
[2018-07-22] MEDS: LISINOPRIL 20 MG TABLET PO SCH (09:15)
[2018-07-22] MEDS: LEVOTHYROXINE 150 MCG TABLET PO SCH (09:30)
[2018-07-22] MEDS: INSULIN LISPRO 300 UNITS/3 ML INSULN.PEN. SQ SCH ×5 (09:30→17:15)
--- NOTE | 2018-07-22 10:58 | HP ---
ADMIT DATE: 07/22/2018 CHIEF COMPLAINT: Nausea and vomiting and shortness of breath. HISTORY OF PRESENT ILLNESS: The patient is a 68-year-old female with a history of chronic respiratory failure due to COPD and end-stage renal disease, on dialysis. She presented to the Emergency Room with the above complaints. The patient reported the onset of emesis on the evening prior to admission. It started after she had eaten dinner and she had about 4 episodes of emesis overnight. She grew concerned and came to the Emergency Department. She also reported some increase in her chronic shortness of breath while she was in the Emergency Room. Treatment was started and she was admitted for further care. PAST MEDICAL HISTORY: End-stage renal disease, on dialysis; chronic respiratory failure with COPD; diabetes mellitus type 2, previously insulin-dependent; chronic systolic and diastolic congestive heart failure; coronary artery disease; hyperlipidemia; hypertension; hypothyroidism; peripheral vascular disease. 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 ALLERGIES: The patient has no known drug allergies. HOME MEDICATIONS: Albuterol nebulized treatments as needed, NovoLog insulin 5 units t.i.d. a.c. as needed, levothyroxine 150 mcg daily. The patient used to take multiple other medications, but states she stopped all of these several months ago. FAMILY HISTORY: Noncontributory. SOCIAL HISTORY: The patient is . She has a long smoking history, but states she is only smoking one cigarette a day presently. She does not drink alcohol to excess. REVIEW OF SYSTEMS: The patient denies fever or chills. She already received a flu shot this fall. She denies chest pain or palpitations. She denies increased cough. She had some nausea and vomiting as in the HPI, but this has resolved overnight. She denies any feelings of nausea at this time and denies any abdominal pain. She has not missed a dialysis treatment, but did leave her treatment 1 hour early on Sunday as she had some errands to do. She has been going to the wound care center for treatment for a wound on her right heel, but she states that the wound has now healed and she has been discharged from wound care. PHYSICAL EXAMINATION: GENERAL: The patient is alert and oriented x 3, resting comfortably in bed in no acute distress. HEENT: PERRL. EOMI. Sclerae clear. Oropharynx: Mucous membranes moist. NECK: Supple, without lymphadenopathy. CHEST: Breath sounds decreased throughout. Few crackles in the bases. No wheezes heard. No cough with exam. CARDIOVASCULAR: Regular rhythm. ABDOMEN: Soft, nontender, normoactive bowel sounds are present. EXTREMITIES: Left BKA is present. The right lower extremity is without edema. There is a healed ulcer on the medial aspect of the right heel, the first two toes are surgically absent on the right foot. ASSESSMENT AND PLAN: 1. [id number] respiratory failure. The patient is not hypoxic on 3-4 liters of oxygen per nasal cannula. A chest x-ray at admission showed evidence of peripheral vascular congestion, but no acute infiltrate. The patient states that her shortness of breath improved with nebulizer treatment in the Emergency Room, she also received one large dose of Solu-Medrol. We will continue nebulized treatments. No indication for antibiotics at this time. 2. Nausea and vomiting. The patient states this was really why she came to the Emergency Department last night. These symptoms appear to have resolved and the patient would like to try eating this morning. An ADA Renal diet is ordered. 3. End-stage renal disease, on dialysis. This appears stable, although she did have a short dialysis on Sunday, which could be contributing to her increased congestive heart failure. We will continue dialysis here per Nephrology. Consult with them is pending. 4. Congestive heart failure with systolic and diastolic dysfunction, some exacerbation, seen on chest x-ray. The patient has not seen Cardiology in the office for several months and is not taking any of her usual medications for this. She is encouraged to discuss this with Dr. Solitario. 5. Hypothyroidism. The patient stopped taking her levothyroxine months ago per her report. When she saw Dr. Hernandez in the office last month, her labs showed elevated TSH and low T4 as expected and she was advised to resume taking it daily. She states she has been taking this now for about one month. The importance of continuing her levothyroxine on a long-term basis was discussed with her today, including its contribution to congestive heart failure. 6. Diabetes mellitus type 2. The patient had stopped her Lantus as she was having low blood sugars. She continues to take the mealtime dose as needed. Her last A1c in the office was 5.3 indicating that she is basically diet controlled at this time. We will continue to follow her fingersticks here. Anticipate some elevation due to the Solu-Medrol she was given in the ER. 7. Hypertension. The patient is not taking any medication for this at this time, but her blood pressure is significantly elevated. We will resume the lisinopril that she previously took and follow this. JOCELYN FERNÁNDEZ MD DR: GORDO/juan c JOB#: [id number] / [id number] LINN
[2018-07-22] MEDS: IPRATRPIUM/ALBUTEROL 0.5/2.5MG 3 ML NEBU. NEB SCH ×3 (13:12→20:42)
[2018-07-22 15:00] VITALS: BP 174/68
--- NOTE | 2018-07-22 16:16 | PDOC2 ---
CONSULT Date of Consult Date of Consult DATE: 07/22/18 TIME: 16:06 Reason for Consult Reason for Consult: ESRD Source Source: Chart review, Patient History of Present Illness Reason for Visit: The patient is a 68-year-old Cf with a history of chronic respiratory failure due to COPD , ESRD on HD She presented to the Emergency Room Nausea and vomiting and shortness of breath. It started after she had eaten dinner and she had about 4 episodes of vomiting overnight. She also reported some increase in her chronic shortness of breath while she was in the ER . She reports she never misses HD, on Sunday she did do 1 Hr less as she has to take care of some personal things Currently on HD- she is without any complaints . Past Medical History Cardiovascular: CAD, CHF, HTN, [place], Hyperlipidemia Pulmonary: Asthma, COPD GI: GERD Heme/Onc: Anemia NOS Hepatobiliary: No pertinent hx Psych: Depression Rheumatologic: No pertinent hx Infectious disease: No pertinent hx Renal/: Chronic renal insuff, Chronic renal failure Endocrine: Diabetes, Hypothyroidism, Hyperparathyroidism Past Surgical History Past Surgical History: Cholecystectomy, , Other Family History Family History: Cancer, Chronic Bronchitis, Diabetes, Hypertension Social History ALCOHOL: none Drugs: None Lives: with Family Current Medications Current Medications Current Medications Albuterol Sulfate (Ventolin Neb Soln) 2.5 mg STK-MED ONCE .ROUTE ; Start at 04:38; Stop 07/22/18 at 04:39; Status DC Ipratropium [place] (Atrovent) 0.5 mg STK-MED ONCE .ROUTE ; Start 07/22/18 at 04:38; Stop 07/22/18 at 04:39; Status DC Ipratropium [place] (Atrovent) 0.5 mg 1X ONCE NEB Last administered on at 04:52; Start 07/22/18 at 05:00; Stop 07/22/18 at 05:01; Status DC Methylprednisolone Sodium Succinate (SOLU-Medrol 125MG VIAL) 125 mg 1X ONCE IV Last administered on 07/22/18at 05:42; Start 07/22/18 at 05:00; Stop at 05:01; Status DC Ondansetron HCl (Zofran) 4 mg 1X ONCE IV Last administered on 07/22/18at 05:42 ; Start 07/22/18 at 05:00; Stop 07/22/18 at 05:01; Status DC Albuterol Sulfate (Ventolin Neb Soln) 7.5 mg 1X ONCE NEB Last administered on 07/22/18at 04:52; Start 07/22/18 at 05:00; Stop 07/22/18 at 05:01; Status DC Albuterol/ Ipratropium (Duoneb) 3 ml 1X ONCE NEB Last administered on at 05:48; Start 07/22/18 at 05:45; Stop 07/22/18 at 05:51; Status DC Albuterol/ Ipratropium (Duoneb) 3 ml RTQID NEB Last administered on 07/22/18at 15:56; Start 07/22/18 at 08:00; Stop 07/23/18 at 07:59 Insulin Human Lispro (HumaLOG) 0-5 UNITS TIDWMEALS SQ Last administered on at 15:08; Start 07/22/18 at 12:00 Dextrose (Dextrose 50%-Water Syringe) 12.5 gm PRN Q15MIN PRN IV SEE COMMENTS; Start 07/22/18 at 09:00 Acetaminophen (Tylenol) 1,000 mg PRN Q6HRS PRN PO pain; Start 07/22/18 at 09: 00 Ondansetron HCl (Zofran) 4 mg PRN Q6HRS PRN IV NAUSEA/VOMITING; Start at 09:00 Insulin Human Lispro (HumaLOG) 5 units TIDWMEALS SQ Last administered on at 15:09; Start 07/22/18 at 09:30 Levothyroxine Sodium (Synthroid) 150 mcg DAILY06 PO ; Start 07/22/18 at 09:30 Lisinopril (Prinivil) 20 mg DAILY PO ; Start 07/22/18 at 09:15 Active Scripts Active Albuterol Sulfate Neb Soln (Albuterol Sulfate) 2.5 Mg/3 Ml Vial.neb 2.5 Mg NEB RTQID Reported Levothyroxine Sodium 150 Mcg Tablet 150 Mcg PO DAILYAC Novolog Flexpen (Insulin Aspart) 100 Unit/1 Ml Insuln.pen 5 Unit SQ TIDWMEALS Allergies Allergies: Coded Allergies: I S O L A T I O N *CONTACT* (Verified Allergy, Unknown, 07/22/18) mrsa ROS Review of System As per HPI Physical Exam Physical Exam GENERAL: NAD HEENT: Oropharynx: Mucous membranes moist. NECK: Supple, Lungs : CTA bilat CV : Regular rhythm. ABDOMEN: Soft, nontender, EXTREMITIES: Left BKA is present. The right lower extremity No edema. - No terrell, No SP, CVA tenderness Neuro- Grossly normal Skin No Rash Vital Signs Vital Signs Date Time Temp Pulse Resp B/P (MAP) Pulse Ox O2 Delivery O2 Flow Rate FiO2 07/22/18 15:59 Nasal Cannula 4.0 07/22/18 15:00 98.6 76 18 174/68 (103) 93 98.6 Assessment & Plan ESRD - On HD MWF Seen on HD today , tolerating well, Continue as Ordered Discussed with library helper Nausea/Vomiting- resolved Cbjif-qs-[place] respiratory failure- CxR - vascular congestion, but no acute infiltrate Improved with nebulizer treatment Congestive heart failure with systolic and diastolic dysfunction, Diabetes mellitus type 2. Discussed with Pt and library helper Labs Labs Laboratory Tests Test 07/22/18 04:40 07/22/18 05:11 07/22/18 14:50 White Blood Count 8.8 x10^3/uL (4.0-11.0) Red Blood Count 3.69 x10^6/uL (3.50-5.40) Hemoglobin 11.6 g/dL (12.0-15.5) Hematocrit 34.7 % (36.0-47.0) Mean Corpuscular Volume 94 fL (79-100) Mean Corpuscular Hemoglobin 31 pg (25-35) Mean Corpuscular Hemoglobin Concent 33 g/dL (31-37) Red Cell Distribution Width 15.3 % (11.5-14.5) Platelet Count 136 x10^3/uL (140-400) Neutrophils (%) (Auto) 80 % (31-73) Lymphocytes (%) (Auto) 11 % (24-48) Monocytes (%) (Auto) 6 % (0-9) Eosinophils (%) (Auto) 3 % (0-3) Basophils (%) (Auto) 0 % (0-3) Neutrophils # (Auto) 7.1 x10^3uL (1.8-7.7) Lymphocytes # (Auto) 1.0 x10^3/uL (1.0-4.8) Monocytes # (Auto) 0.5 x10^3/uL (0.0-1.1) Eosinophils # (Auto) 0.2 x10^3/uL (0.0-0.7) Basophils # (Auto) 0.0 x10^3/uL (0.0-0.2) Sodium Level 139 mmol/L (136-145) Potassium Level 5.0 mmol/L (3.5-5.1) Chloride Level 103 mmol/L (98-107) Carbon Dioxide Level 23 mmol/L (21-32) Anion Gap 13 (6-14) Blood Urea Nitrogen 71 mg/dL (7-20) Creatinine 4.4 mg/dL (0.6-1.0) Estimated GFR (Cockcroft-Gault) 10.0 BUN/Creatinine Ratio 16 (6-20) Glucose Level 183 mg/dL (70-99) Calcium Level 8.0 mg/dL (8.5-10.1) Total Bilirubin 0.3 mg/dL (0.2-1.0) Aspartate Amino Transf (AST/SGOT) 17 U/L (15-37) Alanine Aminotransferase (ALT/SGPT) 13 U/L (14-59) Alkaline Phosphatase 126 U/L (46-116) JQ-Diw-E-Type Natriuretic Peptide > 78864 pg/mL (0-124) Total Protein 7.6 g/dL (6.4-8.2) Albumin 3.1 g/dL (3.4-5.0) Albumin/Globulin Ratio 0.7 (1.0-1.7) Glucose (Fingerstick) 367 mg/dL (70-99) Laboratory Tests Test 07/22/18 04:40 07/22/18 05:11 07/22/18 14:50 White Blood Count 8.8 x10^3/uL (4.0-11.0) Red Blood Count 3.69 x10^6/uL (3.50-5.40) Hemoglobin 11.6 g/dL (12.0-15.5) Hematocrit 34.7 % (36.0-47.0) Mean Corpuscular Volume 94 fL (79-100) Mean Corpuscular Hemoglobin 31 pg (25-35) Mean Corpuscular Hemoglobin Concent 33 g/dL (31-37) Red Cell Distribution Width 15.3 % (11.5-14.5) Platelet Count 136 x10^3/uL (140-400) Neutrophils (%) (Auto) 80 % (31-73) Lymphocytes (%) (Auto) 11 % (24-48) Monocytes (%) (Auto) 6 % (0-9) Eosinophils (%) (Auto) 3 % (0-3) Basophils (%) (Auto) 0 % (0-3) Neutrophils # (Auto) 7.1 x10^3uL (1.8-7.7) Lymphocytes # (Auto) 1.0 x10^3/uL (1.0-4.8) Monocytes # (Auto) 0.5 x10^3/uL (0.0-1.1) Eosinophils # (Auto) 0.2 x10^3/uL (0.0-0.7) Basophils # (Auto) 0.0 x10^3/uL (0.0-0.2) Sodium Level 139 mmol/L (136-145) Potassium Level 5.0 mmol/L (3.5-5.1) Chloride Level 103 mmol/L (98-107) Carbon Dioxide Level 23 mmol/L (21-32) Anion Gap 13 (6-14) Blood Urea Nitrogen 71 mg/dL (7-20) Creatinine 4.4 mg/dL (0.6-1.0) Estimated GFR (Cockcroft-Gault) 10.0 BUN/Creatinine Ratio 16 (6-20) Glucose Level 183 mg/dL (70-99) Calcium Level 8.0 mg/dL (8.5-10.1) Total Bilirubin 0.3 mg/dL (0.2-1.0) Aspartate Amino Transf (AST/SGOT) 17 U/L (15-37) Alanine Aminotransferase (ALT/SGPT) 13 U/L (14-59) Alkaline Phosphatase 126 U/L (46-116) YH-Iop-U-Type Natriuretic Peptide > 28119 pg/mL (0-124) Total Protein 7.6 g/dL (6.4-8.2) Albumin 3.1 g/dL (3.4-5.0) Albumin/Globulin Ratio 0.7 (1.0-1.7) Glucose (Fingerstick) 367 mg/dL (70-99) Review All relevant outside records, renal labs, imaging studies, telemetry/EKG's were reviewed. JEROME SILVA MD Jul 22, 2018 16:15
[2018-07-22 19:00] VITALS: BP 177/60
[2018-07-22 22:56] VITALS: BP 156/47
[2018-07-23 03:00] VITALS: BP 146/47
[2018-07-23] MEDS: LEVOTHYROXINE 150 MCG TABLET PO SCH (05:51)
[2018-07-23 06:20] LABS: BILIRUBIN,URINE NEGATIVE (NEG); CLARITY,URINE CLEAR; COLOR,URINE YELLOW; NITRITE,URINE NEGATIVE (NEG); PROTEIN,URINE >=300 mg/dL (NEG-TRACE); UROBILINOGEN,URINE 0.2 mg/dL (0.2 mg/dL)
[2018-07-23 06:39] LABS: SQUAMOUS EPITHELIAL CELL,UR MOD /LPF
[2018-07-23 06:40] LABS: BACTERIA,URINE MANY /HPF (0-FEW)
[2018-07-23 07:00] VITALS: BP 152/57
[2018-07-23] MEDS: INSULIN LISPRO 300 UNITS/3 ML INSULN.PEN. SQ SCH ×2 (08:00)
--- NOTE | 2018-07-23 08:18 | PDOC ---
PROGRESS NOTES Subjective Subjective Patient states she feels much better, ready to go home today. Objective Objective Vital Signs Date Time Temp Pulse Resp B/P (MAP) Pulse Ox O2 Delivery O2 Flow Rate FiO2 07/23/18 07:00 97.8 70 23 152/57 (88) 99 Room Air 97.8 07/22/18 20:43 4.0 Intake and Output 07/23/18 07:00 Intake Total 718 ml Output Total 2 ml Balance 716 ml Intake Oral 718 ml Output Urine Total 2 ml # Voids 1 Physical Exam Abdomen: Normal bowel sounds, Soft, No tenderness Heart: Regular rate Extremities: No edema General: Alert, Oriented X3, No acute distress Lungs: Other (BS decreased throughout but otherwise CTA) Plan Plan of Care 1. Acute on chronic respiratory failure - improved, appears at baseline. Home today. Has already received flu shot. 2. N/V - resolved, eating breakfast with good appetite. 3. ESRD - stable, follow up for her usual outpatient dialysis tomorrow. 4. CHF with systolic and diastolic dysfunction - chest exam improved after dialysis yesterday. Appears compensated at this time. 5. HTN - BP elevated without medication, patient advised to resume her usual Lisinopril (was ordered here yesterday but patient never received). 6. DM2 - glucose elevated due to Solumedrol in ER. Much better this AM. Continue to watch diet and take Novolog as needed. 7. hypothyroidism - strongly advised to take her Levothyroxine daily, states she will. Comment Review of Relevant I have reviewed the following items afua (where applicable) has been applied. Labs Laboratory Tests Test 07/22/18 04:40 07/22/18 05:11 07/22/18 14:50 07/22/18 17:05 White Blood Count 8.8 x10^3/uL (4.0-11.0) Red Blood Count 3.69 x10^6/uL (3.50-5.40) Hemoglobin 11.6 g/dL (12.0-15.5) Hematocrit 34.7 % (36.0-47.0) Mean Corpuscular Volume 94 fL (79-100) Mean Corpuscular Hemoglobin 31 pg (25-35) Mean Corpuscular Hemoglobin Concent 33 g/dL (31-37) Red Cell Distribution Width 15.3 % (11.5-14.5) Platelet Count 136 x10^3/uL (140-400) Neutrophils (%) (Auto) 80 % (31-73) Lymphocytes (%) (Auto) 11 % (24-48) Monocytes (%) (Auto) 6 % (0-9) Eosinophils (%) (Auto) 3 % (0-3) Basophils (%) (Auto) 0 % (0-3) Neutrophils # (Auto) 7.1 x10^3uL (1.8-7.7) Lymphocytes # (Auto) 1.0 x10^3/uL (1.0-4.8) Monocytes # (Auto) 0.5 x10^3/uL (0.0-1.1) Eosinophils # (Auto) 0.2 x10^3/uL (0.0-0.7) Basophils # (Auto) 0.0 x10^3/uL (0.0-0.2) Sodium Level 139 mmol/L (136-145) Potassium Level 5.0 mmol/L (3.5-5.1) Chloride Level 103 mmol/L (98-107) Carbon Dioxide Level 23 mmol/L (21-32) Anion Gap 13 (6-14) Blood Urea Nitrogen 71 mg/dL (7-20) Creatinine 4.4 mg/dL (0.6-1.0) Estimated GFR (Cockcroft-Gault) 10.0 BUN/Creatinine Ratio 16 (6-20) Glucose Level 183 mg/dL (70-99) Calcium Level 8.0 mg/dL (8.5-10.1) Total Bilirubin 0.3 mg/dL (0.2-1.0) Aspartate Amino Transf (AST/SGOT) 17 U/L (15-37) Alanine Aminotransferase (ALT/SGPT) 13 U/L (14-59) Alkaline Phosphatase 126 U/L (46-116) KB-Weu-J-Type Natriuretic Peptide > 76494 pg/mL (0-124) Total Protein 7.6 g/dL (6.4-8.2) Albumin 3.1 g/dL (3.4-5.0) Albumin/Globulin Ratio 0.7 (1.0-1.7) Glucose (Fingerstick) 367 mg/dL (70-99) 280 mg/dL (70-99) Test 07/22/18 20:52 07/23/18 06:00 07/23/18 07:48 Glucose (Fingerstick) 244 mg/dL (70-99) 131 mg/dL (70-99) Urine Collection Type Unknown Urine Color Yellow Urine Clarity Clear Urine pH 6.0 Urine Specific [place] 1.015 Urine Protein >=300 mg/dL (NEG-TRACE) Urine Glucose (UA) 250 mg/dL (NEG) Urine Ketones (Stick) Negative mg/dL (NEG) Urine Blood Trace (NEG) Urine Nitrite Negative (NEG) Urine Bilirubin Negative (NEG) Urine Urobilinogen Dipstick 0.2 mg/dL (0.2 mg/dL) Urine Leukocyte Esterase Negative (NEG) Urine RBC 1-2 /HPF (0-2) Urine WBC 5-10 /HPF (0-4) Urine Squamous Epithelial Cells Mod /LPF Urine Bacteria Many /HPF (0-FEW) Laboratory Tests Test 07/22/18 14:50 07/22/18 17:05 07/22/18 20:52 07/23/18 06:00 Glucose (Fingerstick) 367 mg/dL (70-99) 280 mg/dL (70-99) 244 mg/dL (70-99) Urine Collection Type Unknown Urine Color Yellow Urine Clarity Clear Urine pH 6.0 Urine Specific [place] 1.015 Urine Protein >=300 mg/dL (NEG-TRACE) Urine Glucose (UA) 250 mg/dL (NEG) Urine Ketones (Stick) Negative mg/dL (NEG) Urine Blood Trace (NEG) Urine Nitrite Negative (NEG) Urine Bilirubin Negative (NEG) Urine Urobilinogen Dipstick 0.2 mg/dL (0.2 mg/dL) Urine Leukocyte Esterase Negative (NEG) Urine RBC 1-2 /HPF (0-2) Urine WBC 5-10 /HPF (0-4) Urine Squamous Epithelial Cells Mod /LPF Urine Bacteria Many /HPF (0-FEW) Test 07/23/18 07:48 Glucose (Fingerstick) 131 mg/dL (70-99) Medications Current Medications Albuterol Sulfate (Ventolin Neb Soln) 2.5 mg STK-MED ONCE .ROUTE ; Start at 04:38; Stop 07/22/18 at 04:39; Status DC Ipratropium [place] (Atrovent) 0.5 mg STK-MED ONCE .ROUTE ; Start 07/22/18 at 04:38; Stop 07/22/18 at 04:39; Status DC Ipratropium [place] (Atrovent) 0.5 mg 1X ONCE NEB Last administered on at 04:52; Start 07/22/18 at 05:00; Stop 07/22/18 at 05:01; Status DC Methylprednisolone Sodium Succinate (SOLU-Medrol 125MG VIAL) 125 mg 1X ONCE IV Last administered on 07/22/18at 05:42; Start 07/22/18 at 05:00; Stop at 05:01; Status DC Ondansetron HCl (Zofran) 4 mg 1X ONCE IV Last administered on 07/22/18at 05:42 ; Start 07/22/18 at 05:00; Stop 07/22/18 at 05:01; Status DC Albuterol Sulfate (Ventolin Neb Soln) 7.5 mg 1X ONCE NEB Last administered on 07/22/18at 04:52; Start 07/22/18 at 05:00; Stop 07/22/18 at 05:01; Status DC Albuterol/ Ipratropium (Duoneb) 3 ml 1X ONCE NEB Last administered on at 05:48; Start 07/22/18 at 05:45; Stop 07/22/18 at 05:51; Status DC Albuterol/ Ipratropium (Duoneb) 3 ml RTQID NEB Last administered on 07/22/18at 20:42; Start 07/22/18 at 08:00; Stop 07/23/18 at 07:59; Status DC Insulin Human Lispro (HumaLOG) 0-5 UNITS TIDWMEALS SQ Last administered on at 17:14; Start 07/22/18 at 12:00 Dextrose (Dextrose 50%-Water Syringe) 12.5 gm PRN Q15MIN PRN IV SEE COMMENTS; Start 07/22/18 at 09:00 Acetaminophen (Tylenol) 1,000 mg PRN Q6HRS PRN PO pain; Start 07/22/18 at 09: 00 Ondansetron HCl (Zofran) 4 mg PRN Q6HRS PRN IV NAUSEA/VOMITING; Start at 09:00 Insulin Human Lispro (HumaLOG) 5 units TIDWMEALS SQ Last administered on at 17:15; Start 07/22/18 at 09:30 Levothyroxine Sodium (Synthroid) 150 mcg DAILY06 PO Last administered on at 05:51; Start 07/22/18 at 09:30 Lisinopril (Prinivil) 20 mg DAILY PO ; Start 07/22/18 at 09:15 Active Scripts Active Albuterol Sulfate Neb Soln (Albuterol Sulfate) 2.5 Mg/3 Ml Vial.neb 2.5 Mg NEB RTQID Reported Levothyroxine Sodium 150 Mcg Tablet 150 Mcg PO DAILYAC Novolog Flexpen (Insulin Aspart) 100 Unit/1 Ml Insuln.pen 5 Unit SQ TIDWMEALS Vitals/I & O Vital Sign - Last 24 Hours 07/22/18 07/22/18 07/22/18 07/22/18 13:14 15:00 15:59 19:00 Temp 98.6 97.9 98.6 97.9 Pulse 76 68 Resp 18 B/P (MAP) 174/68 (103) 177/60 (99) Pulse Ox 94 93 92 O2 Delivery Nasal Cannula Room Air Nasal Cannula Room Air O2 Flow Rate 4.0 4.0 07/22/18 07/22/18 07/22/18 07/23/18 20:00 20:43 22:56 03:00 Temp 97.6 97.9 97.6 97.9 Pulse 67 67 Resp 20 22 B/P (MAP) 156/47 (83) 146/47 (80) Pulse Ox 95 94 96 O2 Delivery Nasal Cannula Nasal Cannula Room Air Room Air O2 Flow Rate 3.0 4.0 07/23/18 07:00 Temp 97.8 97.8 Pulse 70 Resp 23 B/P (MAP) 152/57 (88) Pulse Ox 99 O2 Delivery Room Air Intake and Output 07/22/18 07/22/18 07/23/18 15:00 23:00 07:00 Intake Total 300 ml 300 ml 118 ml Output Total 0 ml 2 ml Balance 300 ml 300 ml 116 ml JOCELYN FERNÁNDEZ MD Jul 23, 2018 08:18
[2018-07-23] MEDS ORDERED: LISI-130 PO (08:21)
[2018-07-23] MEDS: IPRATRPIUM/ALBUTEROL 0.5/2.5MG 3 ML NEBU. NEB SCH (08:57)
[2018-07-23 09:19] VITALS: BP 152/57
[2018-07-23] MEDS: LISINOPRIL 20 MG TABLET PO SCH (09:19)
--- NOTE | 2018-07-23 12:38 | DS ---
DATE OF DISCHARGE: 07/23/2018 CHIEF COMPLAINT: Nausea and vomiting with shortness of breath. HISTORY OF PRESENT ILLNESS: The patient is a 68-year-old female with a history of chronic respiratory failure due to COPD and end-stage renal disease, on dialysis. She presented to the Emergency Room with the above complaints. She reported the onset of emesis on the evening prior to admission. It started after she had eaten dinner and she had about 4 episodes of emesis overnight. She grew concerned and came to the Emergency Department. She also reported some increase in her chronic shortness of breath while she was in the Emergency Department. Treatment was started and she was admitted for further care. HOSPITAL COURSE: Chest x-ray at admission showed pulmonary vascular congestion, but no infiltrate. The patient received nebulized breathing treatments and one large dose of Solu-Medrol in the Emergency Room. She was not hypoxic on her usual oxygen 3-4 liters per nasal cannula. She was seen in consultation by Nephrology and underwent her usual dialysis on Sunday. She reported that her breathing was much better after dialysis and she no longer felt short of breath. The patient's nausea and vomiting had resolved by the time she came to the Emergency Department. She had no further episodes here and is tolerating her diet with a good appetite. The patient's diabetes has been well controlled with only small amounts of mealtime insulin as needed. Her blood sugars were elevated here due to the Solu-Medrol, and so she was advised to continue to check her sugars at home and take her sliding scale insulin as needed. The patient has a long history of hypertension. She states she has not been taking any of her medications for this for some time. Her blood pressure was elevated throughout her hospital stay. Lisinopril was ordered, but was not given yesterday. The patient is advised to resume taking it daily and check her blood pressures and follow up with Dr. Hernandez about this. She had also stopped taking her levothyroxine for several months. When she saw Dr. Hernandez in May, he checked the lab and advised her to resume it. She states she has been taking it daily since then and she is encouraged to continue this and follow up with Dr. Hernandez for lab. Her congestive heart failure appears compensated at this time. FINAL DIAGNOSES: 1. [id number] respiratory failure with chronic obstructive pulmonary disease. 2. Nausea and vomiting, resolved. 3. End-stage renal disease, on dialysis. 4. Congestive heart failure with systolic and diastolic dysfunction. 5. Hypertension. 6. Diabetes mellitus type 2. 7. Hypothyroidism. DISCHARGE MEDICATIONS: Albuterol nebulized treatments p.r.n., lisinopril 20 mg daily, NovoLog insulin sliding scale t.i.d. a.c., levothyroxine 150 mcg daily. Follow up with Dr. Hernandez within 2 weeks. Follow up for her usual outpatient dialysis tomorrow. JOCELYN FERNÁNDEZ MD DR: GORDO/juan c JOB#: [id number] / [id number] LINN
== END 2018-07-23 11:05 | disposition home or self-care (01) | DRG 291 ==
LOC: ER 04:29 → 5 SOUTH 06:30
PROVIDERS: ADMIT Family Medicine; ATTEND Family Medicine
DX: I13.2 Hypertensive heart and chronic kidney disease with heart failure and with stage 5 chronic kidney disease, or end stage renal disease (principal); N18.6 End stage renal disease; I50.43 Acute on chronic combined systolic (congestive) and diastolic (congestive) heart failure; J96.20 Acute and chronic respiratory failure, unspecified whether with hypoxia or hypercapnia; J44.1 Chronic obstructive pulmonary disease with (acute) exacerbation; I25.10 Atherosclerotic heart disease of native coronary artery without angina pectoris; E11.22 Type 2 diabetes mellitus with diabetic chronic kidney disease; E11.51 Type 2 diabetes mellitus with diabetic peripheral angiopathy without gangrene; F17.210 Nicotine dependence, cigarettes, uncomplicated; E03.9 Hypothyroidism, unspecified; K21.9 Gastro-esophageal reflux disease without esophagitis; F32.9 Major depressive disorder, single episode, unspecified; E21.3 Hyperparathyroidism, unspecified; E78.5 Hyperlipidemia, unspecified; Z83.3 Family history of diabetes mellitus; Z82.5 Family history of asthma and other chronic lower respiratory diseases; Z86.74 Personal history of sudden cardiac arrest; Z95.5 Presence of coronary angioplasty implant and graft; Z89.512 Acquired absence of left leg below knee; Z99.2 Dependence on renal dialysis; Z95.810 Presence of automatic (implantable) cardiac defibrillator; Z82.49 Family history of ischemic heart disease and other diseases of the circulatory system; Z80.9 Family history of malignant neoplasm, unspecified; Z79.4 Long term (current) use of insulin; Z99.81 Dependence on supplemental oxygen
CPT/HCPCS: 36415; 71045; 80053; 81001; 82962; 83880; 85025; 87086; 87186; 93005; 94640; 94760; 96374; 96375; J1815; J2405; J2930; J7613; J7620; J7644; 99285-25

== ENCOUNTER 2018-12-22 07:25 | Inpatient (IN) | payer BC, OTHER ==
[~2018-12-22] VITALS: Ht 165.1 cm; Wt 99.5 kg
[~2018-12-22 07:25] MED LIST changes: -AMLO10TA6 PO; +AMLO10TA8 PO; +CARV6.2511 PO; -CARV6.252 PO; -OXYC-323 PO; +OXYC1TAB15 PO
[2018-12-22] MEDS ORDERED: IPRATRPIUM/ALBUTEROL 0.5/2.5MG 3 ML NEBU. NEB ONE (07:45)
--- NOTE | 2018-12-22 07:48 | PHYS DOC ---
Past Medical History Past Medical History: CAD, CHF, COPD, Diabetes-Type II, Renal Failure, Vascular Disease Additional Past Medical Histor: CARDIAC ARREST Past Surgical History: Cholecystectomy, , Pacemaker Additional Past Surgical Histo: AICD, VASCULAR STENTS, CARDIAC STENTS, CADAVER ARTERY, LEFT BKA Smoking: Quit Less Than 1 Year Alcohol Use: None Drug Use: None Adult General Chief Complaint Chief Complaint: SHORTNESS OF BREATH HPI HPI Patient is a 68-year-old female with a past history of ESRD, COPD, diabetes, as well as other medical problems, who presents to the emergency department for evaluation. The patient states that her last dialysis session was on Sunday but she only got to about half a session, because she began feeling nauseated. She states that she began vomiting on Sunday, and has had intermittent episodes of vomiting since that time. She also reports some generalized right-sided abdominal pain, but has not had any diarrhea. She has not had any bloody emesis or stools. She reports having increasing shortness of breath today. She is notably tachypneic upon arrival. She has not had any cough. She wears oxygen, 3 L at home, was not wearing her oxygen upon arrival. There are no alleviating, or exacerbating factors to her symptoms otherwise. Review of Systems Review of Systems Constitutional: Denies fever or chills [] Eyes: Denies change in visual acuity, redness, or eye pain [] HENT: Denies nasal congestion or sore throat [] Respiratory: Denies cough or pleuritic pain. Reports shortness of breath.[] Cardiovascular: The patient denies any chest pain, palpitations, or orthopnea [] GI: Denies bloody stools or diarrhea [] : Denies dysuria or hematuria [] Musculoskeletal: Denies back pain or joint pain [] Integument: Denies rash or skin lesions [] Neurologic: Denies headache, focal weakness or sensory changes [] Endocrine: Denies polyuria or polydipsia [] All other systems were reviewed and found to be within normal limits, except as documented in this note. Current Medications Current Medications Current Medications Medications (Trade) Dose Ordered Sig/Slick Start Time Stop Time Status Last Admin Dose Admin Albuterol/ Ipratropium (Duoneb) 3 ml 1X ONCE 12/22/18 07:45 12/22/18 07:47 DC 12/22/18 07:50 3 ML Calcium Gluconate (Calcium Gluconate) 3,000 mg 1X ONCE 12/22/18 08:00 12/22/18 08:01 DC 12/22/18 08:14 3,000 MG Dextrose (Dextrose 50%-Water Syringe) 25 gm 1X ONCE 12/22/18 08:00 12/22/18 08:01 DC 12/22/18 08:13 25 GM Info (CONTRAST GIVEN -- Rx MONITORING) 1 each PRN DAILY PRN 12/22/18 08:15 12/24/18 08:14 Insulin Human Regular (HumuLIN R VIAL) 10 unit 1X ONCE 12/22/18 08:00 12/22/18 08:01 DC 12/22/18 08:15 10 UNIT Iohexol (Omnipaque 350 Mg/ml) 80 ml 1X ONCE 12/22/18 08:00 12/22/18 08:01 DC Sodium Bicarbonate (Sodium Bicarb Adult 8.4% Syr) 50 meq 1X ONCE 12/22/18 08:00 12/22/18 08:01 DC 12/22/18 08:13 50 MEQ Allergies Allergies Allergies Coded Allergies Type Severity Reaction Last Updated Verified I S O L A T I O N *CONTACT* Allergy Unknown 07/22/18 Yes No Known Medication Allergies Allergy Unknown 07/23/18 Yes Physical Exam Physical Exam PHYSICAL EXAM: CONSTITUTIONAL: Well developed, well nourished HEAD: normocephalic, atraumatic EENT: PERRL, EOMI. Conjunctivae normal color, sclerae non-icteric; moist mucous membranes. NECK: Supple, non-tender; no meningismus. LUNGS: Lungs CTA, the patient is tachypnea with labored breathing, air movement is normal. HEART: Regular rate and rhythm, no murmur CHEST: No deformity; non-tender ABDOMEN: The abdomen is soft, mild right upper abdominal tenderness to palpation , without rebound or guarding, the lower abdomen is relatively non-tender, bowel sounds are diminished. The exam is somewhat limited secondary to the patient's abdominal girth. EXTREM: Normal ROM; no deformity, no calf tenderness. Normal pulses palpable in all extremities. There is no pedal edema. There has been a left BKA. There is an 80 fistula in the left upper extremity. SKIN: No rash; no diaphoresis NEURO: Alert; normal speech and cognition; CN's grossly intact; strength grossly intact without focal deficit. BACK: No CVA TTP. Current Patient Data Vital Signs Vital Signs Date Time Temp Pulse Resp B/P (MAP) Pulse Ox O2 Delivery O2 Flow Rate FiO2 12/22/18 07:53 95 Nasal Cannula 3.0 12/22/18 07:28 98.5 97 26 163/70 (101) 98.5 Lab Values Laboratory Tests Test 12/22/18 07:45 12/22/18 08:30 12/22/18 08:56 White Blood Count 8.9 x10^3/uL (4.0-11.0) Red Blood Count 3.77 x10^6/uL (3.50-5.40) Hemoglobin 11.6 g/dL (12.0-15.5) L Hematocrit 36.4 % (36.0-47.0) Mean Corpuscular Volume 97 fL (79-100) Mean Corpuscular Hemoglobin 31 pg (25-35) Mean Corpuscular Hemoglobin Concent 32 g/dL (31-37) Red Cell Distribution Width 16.1 % (11.5-14.5) H Platelet Count 157 x10^3/uL (140-400) Neutrophils (%) (Auto) 74 % (31-73) H Lymphocytes (%) (Auto) 16 % (24-48) L Monocytes (%) (Auto) 6 % (0-9) Eosinophils (%) (Auto) 3 % (0-3) Basophils (%) (Auto) 0 % (0-3) Neutrophils # (Auto) 6.6 x10^3uL (1.8-7.7) Lymphocytes # (Auto) 1.4 x10^3/uL (1.0-4.8) Monocytes # (Auto) 0.6 x10^3/uL (0.0-1.1) Eosinophils # (Auto) 0.3 x10^3/uL (0.0-0.7) Basophils # (Auto) 0.0 x10^3/uL (0.0-0.2) Sodium Level 141 mmol/L (136-145) Potassium Level 3.9 mmol/L (3.5-5.1) Chloride Level 101 mmol/L (98-107) Carbon Dioxide Level 27 mmol/L (21-32) Anion Gap 13 (6-14) Blood Urea Nitrogen 56 mg/dL (7-20) H Creatinine 4.6 mg/dL (0.6-1.0) H Estimated GFR (Cockcroft-Gault) 9.5 BUN/Creatinine Ratio 12 (6-20) Glucose Level 166 mg/dL (70-99) H Calcium Level 8.5 mg/dL (8.5-10.1) Magnesium Level 1.9 mg/dL (1.8-2.4) Total Bilirubin 0.4 mg/dL (0.2-1.0) Aspartate Amino Transferase (AST) 18 U/L (15-37) Alanine Aminotransferase (ALT) 10 U/L (14-59) L Alkaline Phosphatase 112 U/L (46-116) Creatine Kinase 51 U/L (26-192) Creatine Kinase MB (Mass) 3.3 ng/mL (0.0-3.6) Creatine Kinase MB Relative Index % (0-4) Troponin I Quantitative 0.723 ng/mL (0.000-0.055) Total Protein 8.1 g/dL (6.4-8.2) Albumin 3.1 g/dL (3.4-5.0) L Albumin/Globulin Ratio 0.6 (1.0-1.7) L Lipase 127 U/L (73-393) POC Venous pH 7.21 (7.32-7.42) L POC Venous pCO2 63 mmHg (41-51) H POC Venous pO2 144 mmHg (20-40) H Venous Blood HCO3 25 mmol/L (24-28) POC Venous O2 Saturation (Dirk) 99 % POC FiO2 3.0 Laboratory Tests 12/22/18 07:45 Laboratory Tests 12/22/18 08:30 EKG EKG [Normal sinus rhythm at a rate of 93 beats minute, left axis deviation, left bundle branch block pattern, with QRS widening, increased compared to patient's prior EKG from this past June, consistent with hyperkalemia.] Radiology/Procedures Radiology/Procedures [PROCEDURE: PORTABLE CHEST 1V Examination: PORTABLE CHEST 1V History: SHORTNESS OF BREATH Comparison/Correlation: 07/22/2018 portable chest x-ray exam Findings: Portable upright frontal view of the chest was obtained. Dual-lead left-sided ICD is present. Heart size is borderline. No pneumothorax. Small left pleural effusion is present. Adjacent left basilar atelectasis or other consolidation noted. Minimal right pleural effusion. Bony structures are unremarkable for the patient's age. Impression: Left basilar pleural effusion and adjacent atelectasis or other consolidation. Very small right pleural effusion. ] Course & Med Decision Making Course & Med Decision Making Pertinent Labs and Imaging studies reviewed. 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 Her initial potassium on the bedside, she was 7.1, although the possibility of hemolysis was considered and the lab did report that the patient's initial specimen was hemolyzed, due to her QRS widening, she was treated presumptively for hyperkalemia anyway. Repeat draw from the lab did not reveal hemolysis. Potassium was normal on repeat testing. The patient is unable to lay flat secondary to shortness of breath to obtain CT scans, she has been placed on BiPAP based on her venous blood gas results ( respiratory was unable to obtain an ABG). I discussed the case with Dr. Mandujano, on-call for the patient's PCP, who will admit the patient for further evaluation and treatment. Imaging is pending at this time. Dragon Disclaimer Dragon Disclaimer This electronic medical record was generated, in whole or in part, using a voice recognition dictation system. Departure Departure Impression: Primary Impression: Acute respiratory failure Additional Impression: Respiratory distress Disposition: ADMITTED INPATIENT Admitting Physician: Bal Mandujano Condition: GUARDED Referrals: Tristan PENG MD (PCP) Problem Qualifiers KHANG GERARD MD Dec 22, 2018 07:48
[2018-12-22 08:00] LABS: BASO % 0 % (0-3); EOS # 0.3 x10^3/uL (0.0-0.7); EOS % 3 % (0-3); HEMATOCRIT 36.4 % (36.0-47.0); HEMOGLOBIN 11.6 g/dL (12.0-15.5); LYMPH # 1.4 x10^3/uL (1.0-4.8); LYMPH % 16 % (24-48); MEAN CORPUSCULAR HEMOGLOBIN 31 pg (25-35); MEAN CORPUSCULAR HGB CONC 32 g/dL (31-37); MEAN CORPUSCULAR VOLUME 97 fL (79-100); MONO # 0.6 x10^3/uL (0.0-1.1); MONO % 6 % (0-9); NEUT # 6.6 x10^3uL (1.8-7.7); NEUT % 74 % (31-73); PLATELET COUNT 157 x10^3/uL (140-400); RED BLOOD COUNT 3.77 x10^6/uL (3.50-5.40); RED CELL DISTRIBUTION WIDTH 16.1 % (11.5-14.5); WHITE BLOOD COUNT 8.9 x10^3/uL (4.0-11.0)
[2018-12-22] MEDS ORDERED: IOHEXOL 350 MG/ML 100 ML VIAL. IV ONE (08:00)
[2018-12-22] MEDS ORDERED: INSULIN REGULAR 100 UNIT/ML 3ML VIAL. IV ONE (08:00)
[2018-12-22] MEDS ORDERED: CALCIUM GLUCONATE 1,000 MG/10 ML VIAL. IVP ONE (08:00)
[2018-12-22] MEDS ORDERED: SODIUM BICARB ADULT 8.4% 50 MEQ/50 ML DISP.SYRIN. IV ONE (08:00)
[2018-12-22] MEDS ORDERED: DEXTROSE 50% 25 GM / 50ML DISP.SYRIN. IV ONE (08:00)
[2018-12-22] MEDS ORDERED: CONTRAST GIVEN. MC PRN (08:15)
--- NOTE | 2018-12-22 08:32 | RAD ---
Examination: PORTABLE CHEST 1V History: SHORTNESS OF BREATH Comparison/Correlation: 07/22/2018 portable chest x-ray exam Findings: Portable upright frontal view of the chest was obtained. Dual-lead left-sided ICD is present. Heart size is borderline. No pneumothorax. Small left pleural effusion is present. Adjacent left basilar atelectasis or other consolidation noted. Minimal right pleural effusion. Bony structures are unremarkable for the patient's age. Impression: Left basilar pleural effusion and adjacent atelectasis or other consolidation. Very small right pleural effusion. Electronically signed by: Kingston Browne MD (12/22/2018 8:28 AM) [facility]
[2018-12-22 09:02] LABS: ISTAT BE VENOUS -3 mmol/L (0-3); ISTAT HCO3 VEN 25 mmol/L (24-28); ISTAT PCO2 VEN 63 mmHg (41-51); ISTAT PH VEN 7.21 (7.32-7.42); ISTAT PO2 VEN 144 mmHg (20-40); ISTAT SAT O2 VEN 99 %; ISTAT TCO2 VEN 27 mmol/L (21-32)
[2018-12-22 09:05] LABS: CALCIUM 8.5 mg/dL (8.5-10.1); CREATININE 4.6 mg/dL (0.6-1.0); GFR 9.5; POTASSIUM 3.9 mmol/L (3.5-5.1)
[2018-12-22 09:11] LABS: ALBUMIN 3.1 g/dL (3.4-5.0); ALBUMIN/GLOBULIN RATIO 0.6 (1.0-1.7); MAGNESIUM 1.9 mg/dL (1.8-2.4); TOTAL BILIRUBIN 0.4 mg/dL (0.2-1.0); TOTAL PROTEIN 8.1 g/dL (6.4-8.2)
[2018-12-22 09:15] LABS: CREATINE KINASE 51 U/L (26-192)
[2018-12-22] MEDS ORDERED: DIALYSIS PATIENT. MC PRN ×2 (11:15)
--- NOTE | 2018-12-22 11:20 | RAD ---
Examination: CT ANGIOGRAPHY CHEST, CT ABD PELV W/ IV CONTRST ONLY History: SOB, abdomen pain, R side, N/V
IV OMNI 350 80 MLS
PREVIOUS Comparison/Correlation: 01/04/2018 CTA of the chest Findings: Axial images of chest were obtained according to pulmonary arteriography protocol. Motion may limit evaluation. The patient's arms are besides her during scanning and this also may limit assessment. Sagittal and coronal reformatted images were provided. MIP images provided. Axial images of the abdomen and pelvis were also obtained following IV contrast with reformatted images in the sagittal and coronal plane provided. Dual-lead left-sided ICD is present. Leads are present within the right atrial appendage and in the right ventricle. Moderate-sized bilateral pleural effusions are present. Left costophrenic sulcus atelectatic consolidation is present. Minimal right costophrenic sulcus atelectasis. Pulmonary vasculature is congested. Centrilobular emphysema noted. Right upper lobe branch pulmonary arterial thromboembolic disease is present. Minimal left upper lobe branch pulmonary arterial thromboembolic disease also is present. Coronary arterial calcification is evident. Dilated cardiomegaly is present. Thoracic aorta is unremarkable although it is not optimally opacified for arteriographic assessment. Nonenlarged superior mediastinal lymph nodes are present similar to previous exam. Subcarinal lymph node is enlarged measuring up to 2 cm short axis diameter in the interval. It is mildly increased interval. Liver, spleen,, pancreas, and adrenal glands are normal. Gallbladder is not identified.. Mild bilateral renal atrophy noted. Calcific involvement of the abdominal arterial vasculature is notable. Significant calcific involvement of the iliac arteries noted. No ascites. Minimal pelvic free fluid is present. Urinary bladder is unremarkable. No extraluminal gas or bowel obstruction. At the low abdominal wall infraumbilical region, there is a 1.5 cm longitudinal hernia defect containing omental fat. Left inguinal common femoral arterial aneurysm measuring 4.7 cm anteroposterior by 3.7 cm transverse is present and partially thrombosed. Surgical clips noted in this region. There is no significant contrast opacification of the left common femoral artery distal to this. Distended right common femoral arterial diameter 1.8 cm also is present. Surgical clips are noted about this region. Impression: Pulmonary arterial thromboembolic disease. Bilateral pleural effusions with atelectasis greater on the left. Enlarged subcarinal lymph node. This may relate to vascular engorgement. Pulmonary vasculature congestion noted. Centrilobular emphysema. Significant atherosclerotic calcific involvement of the abdominal aorta and iliac arteries. Bilateral common femoral arterial aneurysms. Surgical clips in this region. No significant flow more distally involving the common femoral arteries correlate with history of underlying peripheral vascular disease in determining further evaluation. On 12/22/2018 11:16 AM, results were discussed with the patient's nurse Geovanna. PQRS Compliance Statement: One or more of the following individualized dose reduction techniques were utilized for this examination: 1. Automated exposure control 2. Adjustment of the mA and/or kV according to patient size 3. Use of iterative reconstruction technique Electronically signed by: Kingston Browne MD (12/22/2018 11:17 AM) [facility]
[2018-12-22 11:32] LABS: PROTHROMBIN TIME PATIENT 13.2 SEC (11.7-14.0)
[2018-12-22 11:45] VITALS: BP 151/53
[2018-12-22] MEDS ORDERED: RIVAROXABAN 15 MG TABLET. PO SCH (11:45)
--- NOTE | 2018-12-22 11:51 | EKG ---
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 Electronically Signed On 12-23-2018 14:38:43 CDT by Grover Solitario MD
[2018-12-22 11:56] LABS: BILIRUBIN,URINE NEGATIVE (NEG); CLARITY,URINE CLEAR; COLOR,URINE YELLOW; NITRITE,URINE NEGATIVE (NEG); PROTEIN,URINE >=300 mg/dL (NEG-TRACE); UROBILINOGEN,URINE 0.2 mg/dL (0.2 mg/dL)
--- NOTE | 2018-12-22 12:02 | PDOC1 ---
History and Physical Date of Admission Date of Admission 12/22/18 Identification/Chief Complaint Chief Complaint Vomiting and shortness of air Source Source: Patient History of Present Illness History of Present Illness Pt states that her initial concern was that she had been vomiting since Sunday. She has been more short of air for the past couple of days. A couple of her grandkids had recently been ill. Pt had difficulties sleeping yesterday because of her shortness of breath. Has occasional cough that is non productive and chronic. Pt normally requires 3L O2 NC. Pt has ESRD and had to cut her HD session short on Sunday because of her nausea and ended up vomiting as soon as she left. She was having some right upper quandrant pain, but that has stopped since admission. Pt states that she has been off a lot of her medications because her BP and DM2 was doing well. Past Medical History Cardiovascular: CAD, CHF, HTN, [place], Hyperlipidemia Pulmonary: Asthma, COPD GI: GERD Heme/Onc: Anemia NOS Hepatobiliary: No pertinent hx Psych: Depression Rheumatologic: No pertinent hx Infectious disease: No pertinent hx ENT: No pertinent hx Renal/: Chronic renal insuff, Chronic renal failure Endocrine: Diabetes, Hypothyroidism, Hyperparathyroidism Dermatology: No pertinent hx Past Surgical History Past Surgical History: Cholecystectomy, , Other (vascular surgeries) Family History Family History: Cancer, Chronic Bronchitis, Diabetes, Hypertension Social History Smoke: <1 pack per day ALCOHOL: none Drugs: None Current Problem List Problem List Problems Medical Problems: (1) Respiratory distress Status: Acute Current Medications Current Medications Current Medications Medications (Trade) Dose Ordered Sig/Slick Start Time Stop Time Status Last Admin Dose Admin Albuterol/ Ipratropium (Duoneb) 3 ml 1X ONCE 12/22/18 07:45 12/22/18 07:47 DC 12/22/18 07:50 3 ML Calcium Gluconate (Calcium Gluconate) 3,000 mg 1X ONCE 12/22/18 08:00 12/22/18 08:01 DC 12/22/18 08:14 3,000 MG Dextrose (Dextrose 50%-Water Syringe) 25 gm 1X ONCE 12/22/18 08:00 12/22/18 08:01 DC 12/22/18 08:13 25 GM Info (CONTRAST GIVEN -- Rx MONITORING) 1 each PRN DAILY PRN 12/22/18 08:15 12/24/18 08:14 Info (PHARMACY MONITORING -- do not chart) 1 each PRN DAILY PRN 12/22/18 11:15 UNV Insulin Human Regular (HumuLIN R VIAL) 10 unit 1X ONCE 12/22/18 08:00 12/22/18 08:01 DC 12/22/18 08:15 10 UNIT Iohexol (Omnipaque 350 Mg/ml) 80 ml 1X ONCE 12/22/18 08:00 12/22/18 08:01 DC Rivaroxaban (Xarelto) 15 mg BIDWMEALS 12/22/18 11:45 UNV Sodium Bicarbonate (Sodium Bicarb Adult 8.4% Syr) 50 meq 1X ONCE 12/22/18 08:00 12/22/18 08:01 DC 12/22/18 08:13 50 MEQ Allergies Allergies Allergies Coded Allergies Type Severity Reaction Last Updated Verified I S O L A T I O N *CONTACT* Allergy Unknown 07/22/18 Yes No Known Medication Allergies Allergy Unknown 07/23/18 Yes ROS Review of System CONSTITUTIONAL: No fever or chills, has felt warm though EYES: No recent changes SKIN: No rash or itching CARDIOVASCULAR: No chest pain, syncope, palpitations, or edema RESPIRATORY: No cough, +SOA GASTROINTESTINAL: + nausea, vomiting or abdominal pain NEUROLOGICAL: No headaches or weakness ENDOCRINE: No cold or heat intolerance GENITOURINARY: No urgency or frequency of urination MUSCULOSKELETAL: No back pain or joint pain LYMPHATICS: No enlarged lymph nodes PSYCHIATRIC: No anxiety or depression Physical Exam Physical Exam GEN.: Mild respiratory distress. Alert and oriented. HEENT: Head is normocephalic, atraumatic NECK: Supple. LUNGS: tachypneic, fine crackles LLL HEART: RRR, S1, S2 present. Peripheral pulses intact ABDOMEN: Soft, nontender. Positive bowel sounds. EXTREMITIES: Without any cyanosis, left BKA, multiple toes surgically removed , large callous right heal with no signs of infection NEUROLOGIC: Normal speech, normal tone PSYCHIATRIC: Normal affect, normal mood. SKIN: No ulcerations Vitals Vitals Vital Signs Date Time Temp Pulse Resp B/P (MAP) Pulse Ox O2 Delivery O2 Flow Rate FiO2 12/22/18 10:14 BiPAP/CPAP 12/22/18 09:52 64 142/68 (92) 99 12/22/18 09:22 12/22/18 07:28 98.5 26 98.5 Labs Labs Laboratory Tests Test 12/22/18 07:45 12/22/18 08:30 12/22/18 08:56 12/22/18 10:09 White Blood Count 8.9 x10^3/uL (4.0-11.0) Red Blood Count 3.77 x10^6/uL (3.50-5.40) Hemoglobin 11.6 g/dL (12.0-15.5) Hematocrit 36.4 % (36.0-47.0) Mean Corpuscular Volume 97 fL (79-100) Mean Corpuscular Hemoglobin 31 pg (25-35) Mean Corpuscular Hemoglobin Concent 32 g/dL (31-37) Red Cell Distribution Width 16.1 % (11.5-14.5) Platelet Count 157 x10^3/uL (140-400) Neutrophils (%) (Auto) 74 % (31-73) Lymphocytes (%) (Auto) 16 % (24-48) Monocytes (%) (Auto) 6 % (0-9) Eosinophils (%) (Auto) 3 % (0-3) Basophils (%) (Auto) 0 % (0-3) Neutrophils # (Auto) 6.6 x10^3uL (1.8-7.7) Lymphocytes # (Auto) 1.4 x10^3/uL (1.0-4.8) Monocytes # (Auto) 0.6 x10^3/uL (0.0-1.1) Eosinophils # (Auto) 0.3 x10^3/uL (0.0-0.7) Basophils # (Auto) 0.0 x10^3/uL (0.0-0.2) Sodium Level 141 mmol/L (136-145) Potassium Level 3.9 mmol/L (3.5-5.1) Chloride Level 101 mmol/L (98-107) Carbon Dioxide Level 27 mmol/L (21-32) Anion Gap 13 (6-14) Blood Urea Nitrogen 56 mg/dL (7-20) Creatinine 4.6 mg/dL (0.6-1.0) Estimated GFR (Cockcroft-Gault) 9.5 BUN/Creatinine Ratio 12 (6-20) Glucose Level 166 mg/dL (70-99) Calcium Level 8.5 mg/dL (8.5-10.1) Magnesium Level 1.9 mg/dL (1.8-2.4) Total Bilirubin 0.4 mg/dL (0.2-1.0) Aspartate Amino Transf (AST/SGOT) 18 U/L (15-37) Alanine Aminotransferase (ALT/SGPT) 10 U/L (14-59) Alkaline Phosphatase 112 U/L (46-116) Creatine Kinase 51 U/L (26-192) Creatine Kinase MB (Mass) 3.3 ng/mL (0.0-3.6) Creatine Kinase MB Relative Index % (0-4) Troponin I Quantitative 0.723 ng/mL (0.000-0.055) Total Protein 8.1 g/dL (6.4-8.2) Albumin 3.1 g/dL (3.4-5.0) Albumin/Globulin Ratio 0.6 (1.0-1.7) Lipase 127 U/L (73-393) Bedside Venous pH 7.21 (7.32-7.42) Bedside Venous pCO2 63 mmHg (41-51) Bedside Venous pO2 144 mmHg (20-40) Venous Blood HCO3 25 mmol/L (24-28) POC Venous O2 Saturation (Dirk) 99 % Bedside FiO2 3.0 Prothrombin Time 13.2 SEC (11.7-14.0) Prothromb Time International Ratio 1.0 (0.8-1.1) Lactic Acid Level 1.5 mmol/L (0.4-2.0) Laboratory Tests Test 12/22/18 07:45 12/22/18 08:30 12/22/18 08:56 12/22/18 10:09 White Blood Count 8.9 x10^3/uL (4.0-11.0) Red Blood Count 3.77 x10^6/uL (3.50-5.40) Hemoglobin 11.6 g/dL (12.0-15.5) Hematocrit 36.4 % (36.0-47.0) Mean Corpuscular Volume 97 fL (79-100) Mean Corpuscular Hemoglobin 31 pg (25-35) Mean Corpuscular Hemoglobin Concent 32 g/dL (31-37) Red Cell Distribution Width 16.1 % (11.5-14.5) Platelet Count 157 x10^3/uL (140-400) Neutrophils (%) (Auto) 74 % (31-73) Lymphocytes (%) (Auto) 16 % (24-48) Monocytes (%) (Auto) 6 % (0-9) Eosinophils (%) (Auto) 3 % (0-3) Basophils (%) (Auto) 0 % (0-3) Neutrophils # (Auto) 6.6 x10^3uL (1.8-7.7) Lymphocytes # (Auto) 1.4 x10^3/uL (1.0-4.8) Monocytes # (Auto) 0.6 x10^3/uL (0.0-1.1) Eosinophils # (Auto) 0.3 x10^3/uL (0.0-0.7) Basophils # (Auto) 0.0 x10^3/uL (0.0-0.2) Sodium Level 141 mmol/L (136-145) Potassium Level 3.9 mmol/L (3.5-5.1) Chloride Level 101 mmol/L (98-107) Carbon Dioxide Level 27 mmol/L (21-32) Anion Gap 13 (6-14) Blood Urea Nitrogen 56 mg/dL (7-20) Creatinine 4.6 mg/dL (0.6-1.0) Estimated GFR (Cockcroft-Gault) 9.5 BUN/Creatinine Ratio 12 (6-20) Glucose Level 166 mg/dL (70-99) Calcium Level 8.5 mg/dL (8.5-10.1) Magnesium Level 1.9 mg/dL (1.8-2.4) Total Bilirubin 0.4 mg/dL (0.2-1.0) Aspartate Amino Transf (AST/SGOT) 18 U/L (15-37) Alanine Aminotransferase (ALT/SGPT) 10 U/L (14-59) Alkaline Phosphatase 112 U/L (46-116) Creatine Kinase 51 U/L (26-192) Creatine Kinase MB (Mass) 3.3 ng/mL (0.0-3.6) Creatine Kinase MB Relative Index % (0-4) Troponin I Quantitative 0.723 ng/mL (0.000-0.055) Total Protein 8.1 g/dL (6.4-8.2) Albumin 3.1 g/dL (3.4-5.0) Albumin/Globulin Ratio 0.6 (1.0-1.7) Lipase 127 U/L (73-393) Bedside Venous pH 7.21 (7.32-7.42) Bedside Venous pCO2 63 mmHg (41-51) Bedside Venous pO2 144 mmHg (20-40) Venous Blood HCO3 25 mmol/L (24-28) POC Venous O2 Saturation (Dirk) 99 % Bedside FiO2 3.0 Prothrombin Time 13.2 SEC (11.7-14.0) Prothromb Time International Ratio 1.0 (0.8-1.1) Lactic Acid Level 1.5 mmol/L (0.4-2.0) VTE Prophylaxis Ordered VTE Prophylaxis Devices: No VTE Pharmacological Prophylaxi: Yes Assessment/Plan Assessment/Plan Pt is a 68yo CF admitted with pulmonary embolism 1)Pulmonary embolism- pt has no history of PE or DVT. Started on Eliquis. Pulmonary consulted. Currently doing well on Bipap. LE U/S ordered and pending. 2)Elevated troponin- Cardiology consulted. She has also had some irregular cardiac rhythms since admission. Pt has ICD 3)Hx CAD 4)CHF- systolic, severe. Currently compensated 5)HTN- pt has not been taking BP medication. BP currently elevated but only got 1/2 of her dialysis session on Sunday and going to get dialyzed today. Will CTM 6)DM2- pt not on any medications. BS elevated. Will start SSI. HbA1C pending 7)Hypothyroidism- last TSH in computer at goal. TSH pending. Pt continued on levothyroxine 8)ESRD- electrolytes currently stable. Renal consulted 9)HLD- pt continued on Atorvastatin 10mg 10)COPD- pt currently only using albuterol at home 11)PEM- mild 12)Anemia- mild NELI AMOR MD Dec 22, 2018 12:02
[2018-12-22 12:07] LABS: BACTERIA,URINE FEW /HPF (0-FEW); RBC,URINE OCC /HPF (0-2); WBC,URINE 0 /HPF (0-4)
[2018-12-22 12:08] LABS: AMORPHOUS SEDIMENT,UR PRESENT /HPF; SQUAMOUS EPITHELIAL CELL,UR MOD /LPF
--- NOTE | 2018-12-22 13:52 | PDOC ---
PULMONARY PROGRESS NOTES Vitals Vital Signs Date Time Temp Pulse Resp B/P (MAP) Pulse Ox O2 Delivery O2 Flow Rate FiO2 12/22/18 11:45 97.3 90 20 151/53 (85) 94 Nasal Cannula 3.0 97.3 General: Alert, Oriented X4, No acute distress Lungs: Other Cardiovascular: S1, S2 Abdomen: Soft, Non-tender Extremities: Other Labs Laboratory Tests Test 12/22/18 07:45 12/22/18 08:30 12/22/18 08:56 12/22/18 10:09 White Blood Count 8.9 x10^3/uL (4.0-11.0) Red Blood Count 3.77 x10^6/uL (3.50-5.40) Hemoglobin 11.6 g/dL (12.0-15.5) Hematocrit 36.4 % (36.0-47.0) Mean Corpuscular Volume 97 fL (79-100) Mean Corpuscular Hemoglobin 31 pg (25-35) Mean Corpuscular Hemoglobin Concent 32 g/dL (31-37) Red Cell Distribution Width 16.1 % (11.5-14.5) Platelet Count 157 x10^3/uL (140-400) Neutrophils (%) (Auto) 74 % (31-73) Lymphocytes (%) (Auto) 16 % (24-48) Monocytes (%) (Auto) 6 % (0-9) Eosinophils (%) (Auto) 3 % (0-3) Basophils (%) (Auto) 0 % (0-3) Neutrophils # (Auto) 6.6 x10^3uL (1.8-7.7) Lymphocytes # (Auto) 1.4 x10^3/uL (1.0-4.8) Monocytes # (Auto) 0.6 x10^3/uL (0.0-1.1) Eosinophils # (Auto) 0.3 x10^3/uL (0.0-0.7) Basophils # (Auto) 0.0 x10^3/uL (0.0-0.2) Sodium Level 141 mmol/L (136-145) Potassium Level 3.9 mmol/L (3.5-5.1) Chloride Level 101 mmol/L (98-107) Carbon Dioxide Level 27 mmol/L (21-32) Anion Gap 13 (6-14) Blood Urea Nitrogen 56 mg/dL (7-20) Creatinine 4.6 mg/dL (0.6-1.0) Estimated GFR (Cockcroft-Gault) 9.5 BUN/Creatinine Ratio 12 (6-20) Glucose Level 166 mg/dL (70-99) Calcium Level 8.5 mg/dL (8.5-10.1) Magnesium Level 1.9 mg/dL (1.8-2.4) Total Bilirubin 0.4 mg/dL (0.2-1.0) Aspartate Amino Transf (AST/SGOT) 18 U/L (15-37) Alanine Aminotransferase (ALT/SGPT) 10 U/L (14-59) Alkaline Phosphatase 112 U/L (46-116) Creatine Kinase 51 U/L (26-192) Creatine Kinase MB (Mass) 3.3 ng/mL (0.0-3.6) Creatine Kinase MB Relative Index % (0-4) Troponin I Quantitative 0.723 ng/mL (0.000-0.055) Total Protein 8.1 g/dL (6.4-8.2) Albumin 3.1 g/dL (3.4-5.0) Albumin/Globulin Ratio 0.6 (1.0-1.7) Lipase 127 U/L (73-393) Thyroid Stimulating Hormone (TSH) 0.805 uIU/mL (0.358-3.74) Bedside Venous pH 7.21 (7.32-7.42) Bedside Venous pCO2 63 mmHg (41-51) Bedside Venous pO2 144 mmHg (20-40) Venous Blood HCO3 25 mmol/L (24-28) POC Venous O2 Saturation (Dirk) 99 % Bedside FiO2 3.0 Prothrombin Time 13.2 SEC (11.7-14.0) Prothromb Time International Ratio 1.0 (0.8-1.1) Lactic Acid Level 1.5 mmol/L (0.4-2.0) Test 12/22/18 11:00 12/22/18 11:32 Glucose (Fingerstick) 79 mg/dL (70-99) Urine Collection Type Unknown Urine Color Yellow Urine Clarity Clear Urine pH 5.0 Urine Specific [place] 1.020 Urine Protein >=300 mg/dL (NEG-TRACE) Urine Glucose (UA) 250 mg/dL (NEG) Urine Ketones (Stick) Negative mg/dL (NEG) Urine Blood Small (NEG) Urine Nitrite Negative (NEG) Urine Bilirubin Negative (NEG) Urine Urobilinogen Dipstick 0.2 mg/dL (0.2 mg/dL) Urine Leukocyte Esterase Negative (NEG) Urine RBC Occ /HPF (0-2) Urine WBC 0 /HPF (0-4) Urine Squamous Epithelial Cells Mod /LPF Urine Amorphous Sediment Present /HPF Urine Bacteria Few /HPF (0-FEW) Laboratory Tests Test 12/22/18 07:45 12/22/18 08:30 12/22/18 08:56 12/22/18 10:09 White Blood Count 8.9 x10^3/uL (4.0-11.0) Red Blood Count 3.77 x10^6/uL (3.50-5.40) Hemoglobin 11.6 g/dL (12.0-15.5) Hematocrit 36.4 % (36.0-47.0) Mean Corpuscular Volume 97 fL (79-100) Mean Corpuscular Hemoglobin 31 pg (25-35) Mean Corpuscular Hemoglobin Concent 32 g/dL (31-37) Red Cell Distribution Width 16.1 % (11.5-14.5) Platelet Count 157 x10^3/uL (140-400) Neutrophils (%) (Auto) 74 % (31-73) Lymphocytes (%) (Auto) 16 % (24-48) Monocytes (%) (Auto) 6 % (0-9) Eosinophils (%) (Auto) 3 % (0-3) Basophils (%) (Auto) 0 % (0-3) Neutrophils # (Auto) 6.6 x10^3uL (1.8-7.7) Lymphocytes # (Auto) 1.4 x10^3/uL (1.0-4.8) Monocytes # (Auto) 0.6 x10^3/uL (0.0-1.1) Eosinophils # (Auto) 0.3 x10^3/uL (0.0-0.7) Basophils # (Auto) 0.0 x10^3/uL (0.0-0.2) Sodium Level 141 mmol/L (136-145) Potassium Level 3.9 mmol/L (3.5-5.1) Chloride Level 101 mmol/L (98-107) Carbon Dioxide Level 27 mmol/L (21-32) Anion Gap 13 (6-14) Blood Urea Nitrogen 56 mg/dL (7-20) Creatinine 4.6 mg/dL (0.6-1.0) Estimated GFR (Cockcroft-Gault) 9.5 BUN/Creatinine Ratio 12 (6-20) Glucose Level 166 mg/dL (70-99) Calcium Level 8.5 mg/dL (8.5-10.1) Magnesium Level 1.9 mg/dL (1.8-2.4) Total Bilirubin 0.4 mg/dL (0.2-1.0) Aspartate Amino Transf (AST/SGOT) 18 U/L (15-37) Alanine Aminotransferase (ALT/SGPT) 10 U/L (14-59) Alkaline Phosphatase 112 U/L (46-116) Creatine Kinase 51 U/L (26-192) Creatine Kinase MB (Mass) 3.3 ng/mL (0.0-3.6) Creatine Kinase MB Relative Index % (0-4) Troponin I Quantitative 0.723 ng/mL (0.000-0.055) Total Protein 8.1 g/dL (6.4-8.2) Albumin 3.1 g/dL (3.4-5.0) Albumin/Globulin Ratio 0.6 (1.0-1.7) Lipase 127 U/L (73-393) Thyroid Stimulating Hormone (TSH) 0.805 uIU/mL (0.358-3.74) Bedside Venous pH 7.21 (7.32-7.42) Bedside Venous pCO2 63 mmHg (41-51) Bedside Venous pO2 144 mmHg (20-40) Venous Blood HCO3 25 mmol/L (24-28) POC Venous O2 Saturation (Dirk) 99 % Bedside FiO2 3.0 Prothrombin Time 13.2 SEC (11.7-14.0) Prothromb Time International Ratio 1.0 (0.8-1.1) Lactic Acid Level 1.5 mmol/L (0.4-2.0) Test 12/22/18 11:00 12/22/18 11:32 Glucose (Fingerstick) 79 mg/dL (70-99) Urine Collection Type Unknown Urine Color Yellow Urine Clarity Clear Urine pH 5.0 Urine Specific [place] 1.020 Urine Protein >=300 mg/dL (NEG-TRACE) Urine Glucose (UA) 250 mg/dL (NEG) Urine Ketones (Stick) Negative mg/dL (NEG) Urine Blood Small (NEG) Urine Nitrite Negative (NEG) Urine Bilirubin Negative (NEG) Urine Urobilinogen Dipstick 0.2 mg/dL (0.2 mg/dL) Urine Leukocyte Esterase Negative (NEG) Urine RBC Occ /HPF (0-2) Urine WBC 0 /HPF (0-4) Urine Squamous Epithelial Cells Mod /LPF Urine Amorphous Sediment Present /HPF Urine Bacteria Few /HPF (0-FEW) Medications Active Scripts Medications Dose Route/Sig Max Daily Dose Days Date Category Lisinopril 40 Mg Tablet 20 Mg PO DAILY 30 07/23/18 Rx Levothyroxine Sodium 150 Mcg Tablet 150 Mcg PO DAILYAC 08/21/17 Reported Albuterol Sulfate Neb Soln (Albuterol Sulfate) 2.5 Mg/3 Ml Vial.neb 2.5 Mg NEB RTQID 08/26/15 Rx Novolog Flexpen (Insulin Aspart) 100 Unit/1 Ml Insuln.pen 5 Unit SQ TIDWMEALS 08/21/15 Reported Impression . a/c resp failure acute PE small Possible aspiration agree with anticoagulation add Zosyn follow clinical course BRY HERNANDEZ MD Dec 22, 2018 13:52
[2018-12-22] MEDS ORDERED: PIP/TAZO PER PHARMACY MC PRN (14:00)
[2018-12-22 15:16] VITALS: BP 152/64
[2018-12-22] MEDS: ALBUTEROL SULFATE 2.5 MG/3 ML NEBU. NEB SCH ×2 (15:30→20:52)
[2018-12-22] MEDS: APIXABAN 5 MG TABLET. PO SCH ×2 (15:41→21:00)
[2018-12-22] MEDS: PIPERACILLIN/TAZOBACTAM 2.25 GM in IV NORMAL SALINE 50ML 50 ML IV SCH ×2 (15:43→21:52)
[2018-12-22] MEDS ORDERED: ONDANSETRON PF 4 MG/2 ML VIAL. IV PRN (19:00)
[2018-12-22 19:50] VITALS: BP 122/67
--- NOTE | 2018-12-22 20:10 | EKG ---
[facility] [address] [place] [address] Test Date: 2018-12-22 Test Time: 20:06:04 Pat Name: ANABELLE COFFMAN Department: Room: 204 1 Gender: F [employer] Manager: MCKENNA : 1950 Requested By: ABEL MORRELL Order Number: [id number] Reading MD: Grover Solitario MD Measurements Intervals [place] Rate: 114 P: MA: QRS: -59 QRSD: 194 T: 70 QT: 362 QTc: 503 Interpretive Statements PROBABLE VENTRICULAR TACHYCARDIA CONSIDER AFIB WITH PACED RHYTHM Electronically Signed On 12-22-2018 22:17:07 CDT by Grover Solitario MD
[2018-12-22] MEDS ORDERED: AMIODARONE 150 MG in IV DEXTROSE 5% 100ML 100 ML IV ONE (20:30)
[2018-12-22] MEDS ORDERED: AMIODARONE 900 MG in IV DEXTROSE 5% 500 ML IV PRN (20:30)
[2018-12-22 20:43] LABS: CALCIUM 8.4 mg/dL (8.5-10.1); CREATININE 3.7 mg/dL (0.6-1.0); GFR 12.3; MAGNESIUM 1.7 mg/dL (1.8-2.4); POTASSIUM 3.6 mmol/L (3.5-5.1)
[2018-12-22 20:52] LABS: BASE EXCESS ABG 2 mmol/L (-3-3); CORRECTED PCO2 ABG 62 mmHg; CORRECTED PO2 ABG 116 mmHg; HCO3 ABG 29 mmol/L (21-28); PCO2 ABG 56 mmHg (35-46); PO2 ABG 103 mmHg (65-108); SAT O2 ABG 97 % (92-99)
[2018-12-22 20:53] LABS: FIO2 ABG 60
[2018-12-22] MEDS: ATORVASTATIN CALCIUM 10 MG TABLET. PO SCH (21:00)
[2018-12-22] MEDS: LEVOTHYROXINE 150 MCG TABLET PO SCH (21:36)
[2018-12-22] MEDS ORDERED: MAGNESIUM SULFATE 2GM 50 ML IV ONE (22:00)
[2018-12-22 22:18] LABS: BASE EXCESS ABG 3 mmol/L (-3-3); HCO3 ABG 30 mmol/L (21-28); PCO2 ABG 54 mmHg (35-46); PO2 ABG 81 mmHg (65-108); SAT O2 ABG 95 % (92-99)
[2018-12-22 22:31] LABS: FIO2 ABG 50
[2018-12-22 23:00] VITALS: BP 119/61
[2018-12-23] VITALS (12 sets, daily range): BP systolic 77–121; BP diastolic 41–57
[2018-12-23 01:07] LABS: HEMOGLOBIN A1C 5.7 % (4.8-5.6)
[2018-12-23] MEDS: PIPERACILLIN/TAZOBACTAM 2.25 GM in IV NORMAL SALINE 50ML 50 ML IV SCH ×4 (02:54→17:50)
[2018-12-23 05:30] LABS: CALCIUM 7.9 mg/dL (8.5-10.1); GFR 11.2; POTASSIUM 3.4 mmol/L (3.5-5.1)
[2018-12-23] MEDS: ALBUTEROL SULFATE 2.5 MG/3 ML NEBU. NEB SCH ×4 (07:37→19:48)
--- NOTE | 2018-12-23 07:44 | RAD ---
Bilateral lower extremity venous ultrasound, 12/22/2018: History: Pulmonary emboli Duplex evaluation of the deep veins in the lower extremities was performed including grayscale, color-flow and spectral Doppler analysis. The femoral and popliteal veins demonstrate normal compressibility and normal responses to distal augmentation maneuvers. Color imaging of those vessels shows no evidence of intraluminal clot. 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 The visualized deep veins of the right calf are patent. IMPRESSION: There is no sonographic evidence of deep vein thrombosis in either lower extremity. Electronically signed by: Catracho Fan MD (12/23/2018 7:41 AM) [facility]
--- NOTE | 2018-12-23 08:59 | PDOC ---
PULMONARY PROGRESS NOTES Subjective PT WITH DECREASE SAT DURING HD PLACED ON BIPAP NOW IN ICU OFF BIPAP NO RESP COMPLAINT PT GIVEN ATIVAN IN HD Vitals Vital Signs Date Time Temp Pulse Resp B/P (MAP) Pulse Ox O2 Delivery O2 Flow Rate FiO2 12/23/18 07:37 100 BiPAP/CPAP 12/23/18 07:00 98.3 83 22 121/42 (68) 98.3 12/22/18 15:35 1.0 ROS: No Nausea, No Chest Pain, No Abdominal Pain, No Increase Cough General: Alert, No acute distress Lungs: Crackles Cardiovascular: S1, S2 Abdomen: Soft, Non-tender Neuro Exam: Alert Extremities: Other (EDEMA) Skin: Warm Labs Laboratory Tests Test 12/22/18 07:45 12/22/18 08:30 12/22/18 08:56 12/22/18 10:09 White Blood Count 8.9 x10^3/uL (4.0-11.0) Red Blood Count 3.77 x10^6/uL (3.50-5.40) Hemoglobin 11.6 g/dL (12.0-15.5) Hematocrit 36.4 % (36.0-47.0) Mean Corpuscular Volume 97 fL (79-100) Mean Corpuscular Hemoglobin 31 pg (25-35) Mean Corpuscular Hemoglobin Concent 32 g/dL (31-37) Red Cell Distribution Width 16.1 % (11.5-14.5) Platelet Count 157 x10^3/uL (140-400) Neutrophils (%) (Auto) 74 % (31-73) Lymphocytes (%) (Auto) 16 % (24-48) Monocytes (%) (Auto) 6 % (0-9) Eosinophils (%) (Auto) 3 % (0-3) Basophils (%) (Auto) 0 % (0-3) Neutrophils # (Auto) 6.6 x10^3uL (1.8-7.7) Lymphocytes # (Auto) 1.4 x10^3/uL (1.0-4.8) Monocytes # (Auto) 0.6 x10^3/uL (0.0-1.1) Eosinophils # (Auto) 0.3 x10^3/uL (0.0-0.7) Basophils # (Auto) 0.0 x10^3/uL (0.0-0.2) Sodium Level 141 mmol/L (136-145) Potassium Level 3.9 mmol/L (3.5-5.1) Chloride Level 101 mmol/L (98-107) Carbon Dioxide Level 27 mmol/L (21-32) Anion Gap 13 (6-14) Blood Urea Nitrogen 56 mg/dL (7-20) Creatinine 4.6 mg/dL (0.6-1.0) Estimated GFR (Cockcroft-Gault) 9.5 BUN/Creatinine Ratio 12 (6-20) Glucose Level 166 mg/dL (70-99) Hemoglobin A1c 5.7 % (4.8-5.6) Calcium Level 8.5 mg/dL (8.5-10.1) Magnesium Level 1.9 mg/dL (1.8-2.4) Total Bilirubin 0.4 mg/dL (0.2-1.0) Aspartate Amino Transf (AST/SGOT) 18 U/L (15-37) Alanine Aminotransferase (ALT/SGPT) 10 U/L (14-59) Alkaline Phosphatase 112 U/L (46-116) Creatine Kinase 51 U/L (26-192) Creatine Kinase MB (Mass) 3.3 ng/mL (0.0-3.6) Creatine Kinase MB Relative Index % (0-4) Troponin I Quantitative 0.723 ng/mL (0.000-0.055) Total Protein 8.1 g/dL (6.4-8.2) Albumin 3.1 g/dL (3.4-5.0) Albumin/Globulin Ratio 0.6 (1.0-1.7) Lipase 127 U/L (73-393) Thyroid Stimulating Hormone (TSH) 0.805 uIU/mL (0.358-3.74) Bedside Venous pH 7.21 (7.32-7.42) Bedside Venous pCO2 63 mmHg (41-51) Bedside Venous pO2 144 mmHg (20-40) Venous Blood HCO3 25 mmol/L (24-28) POC Venous O2 Saturation (Dirk) 99 % Bedside FiO2 3.0 Prothrombin Time 13.2 SEC (11.7-14.0) Prothromb Time International Ratio 1.0 (0.8-1.1) Lactic Acid Level 1.5 mmol/L (0.4-2.0) Test 3/31/19 11:00 12/22/18 11:32 12/22/18 14:35 12/22/18 16:47 Glucose (Fingerstick) 79 mg/dL (70-99) 124 mg/dL (70-99) Urine Collection Type Unknown Urine Color Yellow Urine Clarity Clear Urine pH 5.0 Urine Specific [place] 1.020 Urine Protein >=300 mg/dL (NEG-TRACE) Urine Glucose (UA) 250 mg/dL (NEG) Urine Ketones (Stick) Negative mg/dL (NEG) Urine Blood Small (NEG) Urine Nitrite Negative (NEG) Urine Bilirubin Negative (NEG) Urine Urobilinogen Dipstick 0.2 mg/dL (0.2 mg/dL) Urine Leukocyte Esterase Negative (NEG) Urine RBC Occ /HPF (0-2) Urine WBC 0 /HPF (0-4) Urine Squamous Epithelial Cells Mod /LPF Urine Amorphous Sediment Present /HPF Urine Bacteria Few /HPF (0-FEW) Troponin I Quantitative 1.430 ng/mL (0.000-0.055) Test 12/22/18 18:55 12/22/18 20:05 12/22/18 20:20 12/22/18 21:56 Troponin I Quantitative 0.761 ng/mL (0.000-0.055) 0.790 ng/mL (0.000-0.055) O2 Saturation 97 % (92-99) 95 % (92-99) Arterial Blood pH 7.32 (7.35-7.45) 7.35 (7.35-7.45) Arterial Blood pH (Temp corrected) 7.30 Arterial Blood pCO2 at Patient Temp 56 mmHg (35-46) 54 mmHg (35-46) Arterial Blood pCO2 (Temp correct) 62 mmHg Arterial Blood pO2 at Patient Temp 103 mmHg (65-108) 81 mmHg (65-108) Arterial Blood pO2 (Temp corrected) 116 mmHg Arterial Blood HCO3 29 mmol/L (21-28) 30 mmol/L (21-28) Arterial Blood Base Excess 2 mmol/L (-3-3) 3 mmol/L (-3-3) FiO2 60 50 Sodium Level 141 mmol/L (136-145) Potassium Level 3.6 mmol/L (3.5-5.1) Chloride Level 97 mmol/L (98-107) Carbon Dioxide Level 32 mmol/L (21-32) Anion Gap 12 (6-14) Blood Urea Nitrogen 36 mg/dL (7-20) Creatinine 3.7 mg/dL (0.6-1.0) Estimated GFR (Cockcroft-Gault) 12.3 Glucose Level 178 mg/dL (70-99) Calcium Level 8.4 mg/dL (8.5-10.1) Magnesium Level 1.7 mg/dL (1.8-2.4) Test 12/23/18 04:00 Sodium Level 139 mmol/L (136-145) Potassium Level 3.4 mmol/L (3.5-5.1) Chloride Level 99 mmol/L (98-107) Carbon Dioxide Level 30 mmol/L (21-32) Anion Gap 10 (6-14) Blood Urea Nitrogen 44 mg/dL (7-20) Creatinine 4.0 mg/dL (0.6-1.0) Estimated GFR (Cockcroft-Gault) 11.2 Glucose Level 165 mg/dL (70-99) Calcium Level 7.9 mg/dL (8.5-10.1) Magnesium Level 2.3 mg/dL (1.8-2.4) Laboratory Tests Test 12/22/18 10:09 12/22/18 11:00 12/22/18 11:32 12/22/18 14:35 Prothrombin Time 13.2 SEC (11.7-14.0) Prothromb Time International Ratio 1.0 (0.8-1.1) Lactic Acid Level 1.5 mmol/L (0.4-2.0) Glucose (Fingerstick) 79 mg/dL (70-99) Urine Collection Type Unknown Urine Color Yellow Urine Clarity Clear Urine pH 5.0 Urine Specific [place] 1.020 Urine Protein >=300 mg/dL (NEG-TRACE) Urine Glucose (UA) 250 mg/dL (NEG) Urine Ketones (Stick) Negative mg/dL (NEG) Urine Blood Small (NEG) Urine Nitrite Negative (NEG) Urine Bilirubin Negative (NEG) Urine Urobilinogen Dipstick 0.2 mg/dL (0.2 mg/dL) Urine Leukocyte Esterase Negative (NEG) Urine RBC Occ /HPF (0-2) Urine WBC 0 /HPF (0-4) Urine Squamous Epithelial Cells Mod /LPF Urine Amorphous Sediment Present /HPF Urine Bacteria Few /HPF (0-FEW) Troponin I Quantitative 1.430 ng/mL (0.000-0.055) Test 12/22/18 16:47 12/22/18 18:55 12/22/18 20:05 12/22/18 20:20 Glucose (Fingerstick) 124 mg/dL (70-99) Troponin I Quantitative 0.761 ng/mL (0.000-0.055) 0.790 ng/mL (0.000-0.055) O2 Saturation 97 % (92-99) Arterial Blood pH 7.32 (7.35-7.45) Arterial Blood pH (Temp corrected) 7.30 Arterial Blood pCO2 at Patient Temp 56 mmHg (35-46) Arterial Blood pCO2 (Temp correct) 62 mmHg Arterial Blood pO2 at Patient Temp 103 mmHg (65-108) Arterial Blood pO2 (Temp corrected) 116 mmHg Arterial Blood HCO3 29 mmol/L (21-28) Arterial Blood Base Excess 2 mmol/L (-3-3) FiO2 60 Sodium Level 141 mmol/L (136-145) Potassium Level 3.6 mmol/L (3.5-5.1) Chloride Level 97 mmol/L (98-107) Carbon Dioxide Level 32 mmol/L (21-32) Anion Gap 12 (6-14) Blood Urea Nitrogen 36 mg/dL (7-20) Creatinine 3.7 mg/dL (0.6-1.0) Estimated GFR (Cockcroft-Gault) 12.3 Glucose Level 178 mg/dL (70-99) Calcium Level 8.4 mg/dL (8.5-10.1) Magnesium Level 1.7 mg/dL (1.8-2.4) Test 12/22/18 21:56 12/23/18 04:00 O2 Saturation 95 % (92-99) Arterial Blood pH 7.35 (7.35-7.45) Arterial Blood pCO2 at Patient Temp 54 mmHg (35-46) Arterial Blood pO2 at Patient Temp 81 mmHg (65-108) Arterial Blood HCO3 30 mmol/L (21-28) Arterial Blood Base Excess 3 mmol/L (-3-3) FiO2 50 Sodium Level 139 mmol/L (136-145) Potassium Level 3.4 mmol/L (3.5-5.1) Chloride Level 99 mmol/L (98-107) Carbon Dioxide Level 30 mmol/L (21-32) Anion Gap 10 (6-14) Blood Urea Nitrogen 44 mg/dL (7-20) Creatinine 4.0 mg/dL (0.6-1.0) Estimated GFR (Cockcroft-Gault) 11.2 Glucose Level 165 mg/dL (70-99) Calcium Level 7.9 mg/dL (8.5-10.1) Magnesium Level 2.3 mg/dL (1.8-2.4) Medications Active Scripts Medications Dose Route/Sig Max Daily Dose Days Date Category Lisinopril 40 Mg Tablet 20 Mg PO DAILY 30 07/23/18 Rx Levothyroxine Sodium 150 Mcg Tablet 150 Mcg PO DAILYAC 08/21/17 Reported Albuterol Sulfate Neb Soln (Albuterol Sulfate) 2.5 Mg/3 Ml Vial.neb 2.5 Mg NEB RTQID 08/26/15 Rx Novolog Flexpen (Insulin Aspart) 100 Unit/1 Ml Insuln.pen 5 Unit SQ TIDWMEALS 08/21/15 Reported Impression . IMPRESSION: 1. Acute on chronic hypoxemic hypercapnic respiratory failure. 2. Pulmonary embolism. SMALL 3. Bilateral pleural effusion. 4. Bilateral atelectasis. 5. Nausea and vomiting. 6. Possible aspiration. 7. Hypertension. 8. End-stage renal disease. 9. ANXIETY Plan . DOUBT PE IS MAJOR REASON FOR DECREASE 02 SAT IT IS VERY SMALL I THINK ANXIETY IS A COMPONENT WILL IR TO DRAIN EFFUSION ON ELIQUIS 02 PRN BIPAP D/W RN/RT AND PATIENT CCT 35 MINUTES BRY HERNANDEZ MD Dec 23, 2018 08:59
--- NOTE | 2018-12-23 09:17 | PDOC2 ---
MERLYN MULLIGAN [employer] 12/23/18 0917: CARDIAC CONSULT DATE OF CONSULT Date of Consult DATE: 12/23/18 TIME: 09:02 REASON FOR CONSULT Reason for Consult: PE Elevated troponin REFERRING PHYSICIAN Referring Physician: Dr. Mandujano SOURCE Source: Chart review, Patient HISTORY OF PRESENT ILLNESS HISTORY OF PRESENT ILLNESS This is a 68 yo female, with a history of CAD s/p PCI/stent placement, who presented secondary to shortness of breath and nausea/vomiting. IS ESRD on HD. During run Sunday, was not feeling well. HD had to be discontinued. No specific SOA at that time. Went home and vomited x2. Nausea/vomiting persisted over the weekend intermittently. Was significantly short of breath on Sunday. Was unable to sleep due to significant dyspnea. Decided to come to the ED for further evaluation and treatment. Seen during start of HD. Denies any chest pain, palpitations, dizziness, diaphoresis, or SOA. EKG notable for SR with LBBB. CTA chest notable for small PE. Eliquis initiated. During HD today, became significantly short of breath, hypoxic- rapid response was called. Patient was placed on BiPAP and transferred to ICU. PAST MEDICAL HISTORY Cardiovascular: CAD, CHF, HTN, Hyperlipidemia, Other (PAD) Pulmonary: COPD CENTRAL NERVOUS SYSTEM: Other (no pertinent hx) Heme/Onc: Anemia NOS Hepatobiliary: No pertinent hx Psych: Anxiety Musculoskeletal: Osteoarthritis Rheumatologic: No pertinent hx Infectious disease: No pertinent hx ENT: No pertinent hx Renal/: Chronic renal failure (ESRD on HD) Endocrine: Diabetes, Hypothyroidism PAST SURGICAL HISTORY Past Surgical History: Pacemaker (AICD), Cholecystectomy, Tubal Ligation, Other (bilateral fem-pop bypass, left BKA) FAMILY HISTORY Family History: Coronary Artery Disease, Diabetes SOCIAL HISTORY Smoke: Quit (2 weeks ago) ALCOHOL: none Drugs: None Lives: with Family CURRENT MEDICATIONS CURRENT MEDICATIONS Current Medications Medications (Trade) Dose Ordered Sig/Slick Route PRN Reason Start Time Stop Time Status Last Admin Dose Admin Apixaban (Eliquis) 10 mg BID PO 12/22/18 12:00 12/22/18 15:41 Albuterol Sulfate (Ventolin Neb Soln) 2.5 mg RTQID NEB 12/22/18 12:00 12/23/18 07:37 Piperacillin Sod/ Tazobactam Sod 2.25 gm/Sodium Chloride 50 ml @ 100 mls/hr Q6HRS IV 12/22/18 14:00 12/23/18 05:56 Magnesium Sulfate 50 ml @ 25 mls/hr 1X ONCE IV 12/22/18 22:00 12/22/18 23:59 DC 12/22/18 21:52 ALLERGIES ALLERGIES: Coded Allergies: I S O L A T I O N *CONTACT* (Verified Allergy, Unknown, 07/22/18) mrsa No Known Medication Allergies (Verified Allergy, Unknown, 07/23/18) ROS Review of System 14 point ROS conducted with pertinent positives noted above in HPI. PHYSICAL EXAM General: Alert, Oriented X3, Cooperative, No acute distress HEENT: Atraumatic Lungs: Clear to auscultation Heart: Regular rate, Normal S1, Normal S2 Abdomen: Soft Extremities: No edema, Normal pulses Skin: No significant lesion Neuro: Normal speech, Sensation intact Psych/Mental Status: Mental status NL, Mood NL MUSCULOSKELETAL: Osteoarthritic changes both hands VITALS VITALS Vital Signs Date Time Temp Pulse Resp B/P (MAP) Pulse Ox O2 Delivery O2 Flow Rate FiO2 12/23/18 07:37 100 BiPAP/CPAP 12/23/18 07:00 98.3 83 22 121/42 (68) 98.3 12/22/18 15:35 1.0 LABS Lab: Laboratory Tests Test 12/22/18 10:09 12/22/18 11:00 12/22/18 11:32 12/22/18 14:35 Prothrombin Time 13.2 SEC (11.7-14.0) Prothromb Time International Ratio 1.0 (0.8-1.1) Lactic Acid Level 1.5 mmol/L (0.4-2.0) Glucose (Fingerstick) 79 mg/dL (70-99) Urine Collection Type Unknown Urine Color Yellow Urine Clarity Clear Urine pH 5.0 Urine Specific [place] 1.020 Urine Protein >=300 mg/dL (NEG-TRACE) Urine Glucose (UA) 250 mg/dL (NEG) Urine Ketones (Stick) Negative mg/dL (NEG) Urine Blood Small (NEG) Urine Nitrite Negative (NEG) Urine Bilirubin Negative (NEG) Urine Urobilinogen Dipstick 0.2 mg/dL (0.2 mg/dL) Urine Leukocyte Esterase Negative (NEG) Urine RBC Occ /HPF (0-2) Urine WBC 0 /HPF (0-4) Urine Squamous Epithelial Cells Mod /LPF Urine Amorphous Sediment Present /HPF Urine Bacteria Few /HPF (0-FEW) Troponin I Quantitative 1.430 ng/mL (0.000-0.055) Test 12/22/18 16:47 12/22/18 18:55 12/22/18 20:05 12/22/18 20:20 Glucose (Fingerstick) 124 mg/dL (70-99) Troponin I Quantitative 0.761 ng/mL (0.000-0.055) 0.790 ng/mL (0.000-0.055) O2 Saturation 97 % (92-99) Arterial Blood pH 7.32 (7.35-7.45) Arterial Blood pH (Temp corrected) 7.30 Arterial Blood pCO2 at Patient Temp 56 mmHg (35-46) Arterial Blood pCO2 (Temp correct) 62 mmHg Arterial Blood pO2 at Patient Temp 103 mmHg (65-108) Arterial Blood pO2 (Temp corrected) 116 mmHg Arterial Blood HCO3 29 mmol/L (21-28) Arterial Blood Base Excess 2 mmol/L (-3-3) FiO2 60 Sodium Level 141 mmol/L (136-145) Potassium Level 3.6 mmol/L (3.5-5.1) Chloride Level 97 mmol/L (98-107) Carbon Dioxide Level 32 mmol/L (21-32) Anion Gap 12 (6-14) Blood Urea Nitrogen 36 mg/dL (7-20) Creatinine 3.7 mg/dL (0.6-1.0) Estimated GFR (Cockcroft-Gault) 12.3 Glucose Level 178 mg/dL (70-99) Calcium Level 8.4 mg/dL (8.5-10.1) Magnesium Level 1.7 mg/dL (1.8-2.4) Test 12/22/18 21:56 12/23/18 04:00 O2 Saturation 95 % (92-99) Arterial Blood pH 7.35 (7.35-7.45) Arterial Blood pCO2 at Patient Temp 54 mmHg (35-46) Arterial Blood pO2 at Patient Temp 81 mmHg (65-108) Arterial Blood HCO3 30 mmol/L (21-28) Arterial Blood Base Excess 3 mmol/L (-3-3) FiO2 50 Sodium Level 139 mmol/L (136-145) Potassium Level 3.4 mmol/L (3.5-5.1) Chloride Level 99 mmol/L (98-107) Carbon Dioxide Level 30 mmol/L (21-32) Anion Gap 10 (6-14) Blood Urea Nitrogen 44 mg/dL (7-20) Creatinine 4.0 mg/dL (0.6-1.0) Estimated GFR (Cockcroft-Gault) 11.2 Glucose Level 165 mg/dL (70-99) Calcium Level 7.9 mg/dL (8.5-10.1) Magnesium Level 2.3 mg/dL (1.8-2.4) ECHOCARDIOGRAM ECHOCARDIOGRAM <Conclusion> The systolic function is moderately impaired. EF 30% There is global hypokinesis of the left ventricle. No significant pulmonary HTN or valvular disease. DATE: 10/30/17 1702 STRESS TEST STRESS TEST Conclusion 1. No EKG evidence of stressed induced ischemia. 2. Nuclear imaging shows an infarct in the inferior lateral and apical region with some chato-infarct ischemia. 3. Globally decreased LV systolic function with ejection fraction of 34%. 4. Moderate risk Lexiscan nuclear stress test. DATE: 09/09/17 1314 HEART CATH HEART CATH CORONARY ANGIOGRAPHY: LM is a large caliber vessel with normal angiographic appearance. LAD is a large caliber vessel with mild diffuse irregularities of up to 40%. Ramus is a moderate caliber vessel with a proximal 80% stenosis. LCx is a moderate caliber non-dominant vessel with mild diffuse irregularities of up to 30%. OM1 is a small caliber vessel with normal angiographic appearance. RCA is a moderate caliber dominant vessel with a proximal 100% occlusion. The distal RCA fills via right to right and left to right collaterals. RPDA and RPL are moderate caliber vessels seen to fill faintly via collaterals. Conclusion 1. Severely elevated filling pressures. LVEDP 33 mm Hg. 2. Two vessel coronary artery disease. 3. Successful PCI to the proximal ramus with a 3.0/15 BMS. DATE: 08/31/16 1035 ASSESSMENT/PLAN ASSESSMENT/PLAN 1. Acute respiratory failure; recurrent on HD today. Required BiPAP. Underlying obstructive CAD contributing? 2. Acute small PE; d/w Pulm- dyspnea out of proportion with size of PE. On Eliquis 3. NSTEMI; peak 1.4 4. Acute on chronic systolic HF; better compensated following UF 5. ICM s/p AICD (Biotronik); LVEF 30% 6. LBBB; device interrogation revealed normal function. No AFIB or VT noted. VT detection rate lower to 130. 7. CAD s/p PCI/LUX to proximal ramus 08/2016 as noted above. 8. Hypertension; controlled 9. Hyperlipidemia; statin 10. ESRD on HD 11. Diabetes, II Recommendations Echo to assess LV systolic function Stop Eliquis Start heparin per protocol NPO p MN Given history of obstructive CAD and recurrent respiratory failure, that is out of proportion with PE, despite aggressive UF, will plan for cardiac cath in am for definitive evaluation. Continue statin. Add ASA and low-dose BB. LAURA RIVERA MD 12/24/18 0810: CARDIAC CONSULT ASSESSMENT/PLAN ASSESSMENT/PLAN Late entry for 12/23/2018. Agree with above nurse practitioner note. Patient seen and examined. Well-known to our service. She presents with dyspnea out of proportion to her pulmonary embolus. Discussed with pulmonary team. Given her symptoms, echocardiographic abnormalities we'll plan for cardiac catheterization on December 24. Continue heparin for now. If no significant pathology on cath, then consider thoracentesis. MERLYN MULLIGAN APRN Dec 23, 2018 09:17 LAURA RIVERA MD Dec 24, 2018 08:10
[2018-12-23 09:41] LABS: CHOLESTEROL/HDL RATIO 2.5
[2018-12-23] MEDS ORDERED: IV NORMAL SALINE 1000ML BAG 1,000 ML IV PRN ×2 (09:50)
[2018-12-23] MEDS ORDERED: diphenhydrAMINE 50 MG/ML VIAL IV PRN ×2 (10:00)
[2018-12-23] MEDS ORDERED: DIALYSIS PATIENT. MC PRN (10:00)
[2018-12-23] MEDS: APIXABAN 5 MG TABLET. PO SCH (10:07)
[2018-12-23] MEDS: ANTI-COAG MONITOR BY PHARMACY. MC PRN (10:44)
--- NOTE | 2018-12-23 10:49 | CONS ---
DATE OF CONSULTATION: 12/22/2018 ATTENDING PHYSICIAN: Bal Mandujano MD REASON FOR CONSULTATION: The patient is seen in pulmonary consultation at the request of Dr. Mandujano for abnormal CT chest . HISTORY OF PRESENT ILLNESS: The patient is a 68-year-old that presented to the Emergency Room because of increasing shortness of breath and some nausea. Her hemodialysis session was actually cut in short on Sunday because of the nausea, which ended up in emesis. She had some right upper quadrant pain. She was admitted and underwent diagnostic studies. Part of her workup included a CT angiogram. I reviewed the CT, there is a small clot in the right upper subdivision pulmonary artery with bilateral effusion and atelectasis, left greater than right. There is some subcarinal adenopathy. I was asked to see her in consultation. Earlier today, the patient was having difficulty with shortness of air. She was placed on BiPAP. She is now off of BiPAP. She is awake, alert, following commands. She had initial blood gas revealing pH 7.21, PaCO2 of 63, PaO2 of 144. She was started on Eliquis. She does not carry a previous diagnosis of DVT or pulmonary embolism. PAST MEDICAL HISTORY: Coronary artery disease, chronic heart failure, chronic respiratory failure, normally on 3 liters of oxygen supplementation, hypertension, previous myocardial infarction, hyperlipidemia, tobacco dependence, in remission; end-stage renal disease on hemodialysis, nicotine addiction. PAST SURGICAL HISTORY: Status post cholecystectomy. She has had some vascular surgeries in the past. ALLERGIES: No known drug allergies. SOCIAL HISTORY: She continues to smoke. REVIEW OF SYSTEMS: As indicated above, otherwise, a 10-point system was reviewed and negative. PHYSICAL EXAMINATION: GENERAL: The patient was undergoing hemodialysis. She was in no respiratory distress. VITAL SIGNS: Stable. O2 saturation greater than 92%. HEENT: Eyes, the sclerae were nonicteric. NECK: Jugular venous distention was not elevated. No lymphadenopathy. CHEST: Full expansion. LUNGS: Diminished breath sounds in the bases. CARDIOVASCULAR: Regular rate and rhythm with S1, S2. No S3. ABDOMEN: Soft, nontender, nondistended. EXTREMITIES: No clubbing or cyanosis. No pitting edema. NEUROLOGIC: The patient was awake, alert, following commands. A detailed neuro exam was not performed. LABORATORY DATA: Reviewed. INR was 1.0. White count was normal, hemoglobin and hematocrit were noted. CT chest as indicated above. IMPRESSION: 1. Acute on chronic hypoxemic hypercapnic respiratory failure. 2. Pulmonary embolism. 3. Bilateral pleural effusion. 4. Bilateral atelectasis. 5. Nausea and vomiting. 6. Possible aspiration. 7. Hypertension. 8. End-stage renal disease. PLAN: 1. Continue p.r.n. BiPAP. 2. Oxygen supplementation. 3. Agree with Eliquis. 4. Antibiotics. 5. Follow clinical course and make further recommendations. I do appreciate the privilege in sharing in the patient's care. BRY HERNANDEZ MD DR: KERRI/juan c JOB#: [id number] / [id number]
--- NOTE | 2018-12-23 11:23 | EKG ---
[address] [place] [address] Test Date: 2018-12-23 Test Time: 10:34:14 Pat Name: ANABELLE COFFMAN Department: Room: 204 1 Gender: F Rehab Office Coordinator: AT : 1950 Requested By: NELI AMOR Order Number: [id number] Reading MD: Grover Solitario MD Measurements Intervals [place] Rate: 108 P: -64 GA: 104 QRS: -43 QRSD: 194 T: 110 QT: 378 QTc: 511 Interpretive Statements PROBABLE SR ABNORMAL LEFT AXIS DEVIATION LVH LBBB POOR R-WAVE PROGRESSION Electronically Signed On 12-23-2018 15:11:02 CDT by Grover Solitario MD
--- NOTE | 2018-12-23 12:14 | PDOC ---
PROGRESS NOTES Subjective She was dyspneic prior to dialysis this am but her O2 sats dropped in dialysis and she eventually required Bipap, she was admitted with PE without obvious source and is in need of transfer to ICU due to her acute respiratory status. Her only complaint prior to dialysis was she was hungry and wanted to eat, she stated she did not feel dyspneic and that she had had a breathing treatment earlier, sitting up in bed was enough exertion though for her to become SOA though Objective Afebrile General: tachypnic but able to carry on conversation Heart: RRR, monitor NSR Lungs: diminished breath sounds throughout, crackles in bases Abd: soft and non tender Ext: AKA K+: 3.4 Creat: 4.0 Vital Signs Vital Signs Date Time Temp Pulse Resp B/P (MAP) Pulse Ox O2 Delivery O2 Flow Rate FiO2 12/23/18 10:30 100 BiPAP/CPAP 12/23/18 08:15 6.0 12/23/18 07:00 98.3 83 22 121/42 (68) 98.3 I & O Intake and Output 12/23/18 07:00 Intake Total 0 ml Balance 0 ml Intake Oral 0 ml # Bowel Movements 1 Assessment and Plan 1)Pulmonary embolism- pt has no history of PE or DVT. Started on Eliquis. Pulmonary consulted. Initially on Bipap but improved and during dialysis this am her sats dropped and was placed back on Bipap and will be transferred to ICU. LE U/S and CT abd/pelvis negative for PE source, she may need Heparin, ABG ordered. 2)Elevated troponin- Cardiology consulted. She has also had some irregular cardiac rhythms since admission. Pt has ICD 3)acute on chronic respiratory failure - multifactorial with emphysema, COPD, PE , CHF, pleural effusions, atelectasis and non compliance with BP meds - continue Bipap, neb tx and tx of CHF with medication and dialysis 4)CHF- systolic, severe. 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 6)DM2- controlled with diet, pt not taking medications. Now on SSI. HbA1C 5.7 7)Hypothyroidism- TSH currently at goal. Pt continued on levothyroxine 8)ESRD- K+ 3.4. Renal consulted, dialysis started today but may need to finish in ICU 9)HLD- pt continued on Atorvastatin 10mg 10)COPD/ emphysema per CT chest- pt currently only using albuterol at home, continue neb tx 11)PEM- mild 12)Anemia- mild Tristan PENG MD Dec 23, 2018 12:14
--- NOTE | 2018-12-23 13:32 | PDOC ---
Renal-Progress Notes Subjective Notes Notes SOB History of Present Illness Hx of present illness NOT ANY BETTER Vitals Vitals Vital Signs Date Time Temp Pulse Resp B/P (MAP) Pulse Ox O2 Delivery O2 Flow Rate FiO2 12/23/18 10:30 100 BiPAP/CPAP 12/23/18 08:15 6.0 12/23/18 07:00 98.3 83 22 121/42 (68) 98.3 Weight Weight [ ] I.O. Intake and Output Intake and Output 12/23/18 07:00 Intake Total 0 ml Balance 0 ml Intake Oral 0 ml # Bowel Movements 1 Labs Labs Laboratory Tests Test 12/22/18 14:35 12/22/18 16:47 12/22/18 18:55 12/22/18 20:05 Troponin I Quantitative 1.430 ng/mL (0.000-0.055) 0.761 ng/mL (0.000-0.055) Glucose (Fingerstick) 124 mg/dL (70-99) O2 Saturation 97 % (92-99) Arterial Blood pH 7.32 (7.35-7.45) Arterial Blood pH (Temp corrected) 7.30 Arterial Blood pCO2 at Patient Temp 56 mmHg (35-46) Arterial Blood pCO2 (Temp correct) 62 mmHg Arterial Blood pO2 at Patient Temp 103 mmHg (65-108) Arterial Blood pO2 (Temp corrected) 116 mmHg Arterial Blood HCO3 29 mmol/L (21-28) Arterial Blood Base Excess 2 mmol/L (-3-3) FiO2 60 Test 12/22/18 20:20 12/22/18 21:56 12/23/18 04:00 Sodium Level 141 mmol/L (136-145) 139 mmol/L (136-145) Potassium Level 3.6 mmol/L (3.5-5.1) 3.4 mmol/L (3.5-5.1) Chloride Level 97 mmol/L (98-107) 99 mmol/L (98-107) Carbon Dioxide Level 32 mmol/L (21-32) 30 mmol/L (21-32) Anion Gap 12 (6-14) 10 (6-14) Blood Urea Nitrogen 36 mg/dL (7-20) 44 mg/dL (7-20) Creatinine 3.7 mg/dL (0.6-1.0) 4.0 mg/dL (0.6-1.0) Estimated GFR (Cockcroft-Gault) 12.3 11.2 Glucose Level 178 mg/dL (70-99) 165 mg/dL (70-99) Calcium Level 8.4 mg/dL (8.5-10.1) 7.9 mg/dL (8.5-10.1) Magnesium Level 1.7 mg/dL (1.8-2.4) 2.3 mg/dL (1.8-2.4) Troponin I Quantitative 0.790 ng/mL (0.000-0.055) O2 Saturation 95 % (92-99) Arterial Blood pH 7.35 (7.35-7.45) Arterial Blood pCO2 at Patient Temp 54 mmHg (35-46) Arterial Blood pO2 at Patient Temp 81 mmHg (65-108) Arterial Blood HCO3 30 mmol/L (21-28) Arterial Blood Base Excess 3 mmol/L (-3-3) FiO2 50 Triglycerides Level 91 mg/dL (0-150) Cholesterol Level 114 mg/dL (0-200) LDL Cholesterol, Calculated 50 mg/dL (0-100) VLDL Cholesterol, Calculated 18 mg/dL (0-40) Non-HDL Cholesterol Calculated 68 mg/dL (0-129) HDL Cholesterol 46 mg/dL (40-60) Cholesterol/HDL Ratio 2.5 Review of Systems Constitutional: yes: weakness, alert, oriented Ears/Nose/Throat: Yes: no symptom reported Pulmonary: Yes dyspnea Cardiovascular: Yes no symptom reported Gastrointestional: Yes: constipation Genitourinary: Yes: no symptom reported Musculoskeletal: Yes: no symptom reported Skin: Yes no symptom reported Psychiatric/Neurological: Yes: no symptom reported Physical Exam General Appearance: no apparent distress Respiratory: decreased breath sounds Heart: S1S2 Abdomen: soft, bowel sounds present Genitourinary: bladder flat Extremities: pulses present Neurology: alert, Ext weakness Assessment Assessment IMP ESRD ANEMIA PULMONARY EMBOLI ACUTE ON CHRONIC RESP FAILURE DM II HTN NON COMPLIANCE(RARELY STAYS FOR HER FULL HD TX) PLAN HD TODAY UF TO DW PULM SUPPORT ANTICOAGULATION ENC COMPLIANCE WILL FOLLOW KAYLAH ROSADO MD Dec 23, 2018 13:32
[2018-12-23] MEDS ORDERED: HEPARIN for IV BOLUS 10,000 UNIT/10 ML VIAL. IV PRN ×2 (14:30→20:00)
--- NOTE | 2018-12-23 17:32 | CONS ---
DATE OF CONSULTATION: 12/22/2018 REQUESTING PHYSICIAN: Hospitalist. REASON FOR CONSULTATION: Renal failure. HISTORY OF PRESENT ILLNESS: This is a 68-year-old female with end-stage renal disease secondary to diabetes mellitus and hypertension. She had episode of vomiting as well as productive cough and sputum and shortness of breath. She is on supplemental oxygen at 3 liters nasal cannula on routine basis. Her dialysis treatment on Sunday prior to this admission was terminated early due to nausea and emesis. She is now admitted with laboratories notable for hyperkalemia. In this setting, Nephrology evaluation requested. PAST MEDICAL HISTORY: Diabetes mellitus, end-stage renal disease hemodialysis dependent, hypertension, hyperlipidemia, COPD, GE reflux disease, depression, anemia of chronic kidney disease, secondary hyperparathyroidism with renal disease, hypothyroidism, cholecystectomy, , vascular access placement. ALLERGIES: None. MEDICATIONS: Reviewed per med list. FAMILY HISTORY: Noncontributory for renal disease. There is history of diabetes mellitus and hypertension. SOCIAL HISTORY: The patient resides with assistance from family. No alcohol use. Less than 1 pack of cigarettes a day. REVIEW OF SYSTEMS: No headache, sinus problem, nasal drainage, epistaxis, change in vision or hearing No difficulty swallowing. No fever, chills or hemoptysis. No chest pain or . No abdominal pain. No diarrhea. No seizures or malignancies. PHYSICAL EXAMINATION: GENERAL: The patient awake, conversant. HEENT: Sallow complexion, otherwise clear. NECK: No increased JVD. No thyromegaly, mass, or adenopathy. LUNGS: Clear. CARDIAC: Without S3 or rub. ABDOMEN: Obese, bowel sounds present, nontender. EXTREMITIES: Without edema. NEUROLOGIC: Nonfocal. Localized. PSYCHIATRIC: Fair attention to detail. Appropriate affect. LABORATORY AND DIAGNOSTIC DATA: White count 8.9, hemoglobin 11.6, hematocrit 36. Potassium now 3.9, CO2 of 27, creatinine is 4.6. IMPRESSION: 1. End-stage renal disease secondary to diabetic nephropathy. 2. Hyperkalemia, improved with dialysis. 3. Nausea, vomiting - improved. The patient will undergo dialysis Sunday, Sunday and Sunday. We will follow. MACHO HYLTON MD DR: KARON/juan c JOB#: [id number] / [id number]
[2018-12-23] MEDS: LACTOBACILLUS RHAMNOSUS GG 1 CAPSULE. PO SCH (20:55)
[2018-12-23] MEDS: ATORVASTATIN CALCIUM 10 MG TABLET. PO SCH (20:55)
[2018-12-23] MEDS: METOPROLOL TART IMMED RELEASE 25 MG TABLET. PO SCH (20:55)
[2018-12-23] MEDS: HEPARIN 25,000UTS/500ML PREMIX 500 ML IV PRN (21:06)
[2018-12-24] VITALS (28 sets, daily range): BP systolic 70–126; BP diastolic 33–75
[2018-12-24] MEDS: PIPERACILLIN/TAZOBACTAM 2.25 GM in IV NORMAL SALINE 50ML 50 ML IV SCH ×5 (00:10→23:40)
[2018-12-24] MEDS: LEVOTHYROXINE 150 MCG TABLET PO SCH (06:05)
--- NOTE | 2018-12-24 08:07 | CARD ---
MR#: [id number] Date of Study: 12/23/2018 Ordering Physician: NELI AMOR, Referring Physician: NELI AMOR Tech: Moni Simms RDCS APPROVED REPORT EXAM: Two-dimensional and M-mode echocardiogram with Doppler and color Doppler. Other Information Quality : Technically Limited Technically limited study due to body habitus. INDICATION Pulmonary Embolism Surgery/Intervention Pacemaker: 2D DIMENSIONS RVDd2.5 (2.9-3.5cm)Left Atrium(2D)4.6 (1.6-4.0cm) IVSd1.3 (0.7-1.1cm)Aortic Root(2D)2.9 (2.0-3.7cm) LVDd6.1 (3.9-5.9cm)LVOT Diameter2.3 (1.8-2.4cm) PWd1.3 (0.7-1.1cm)LVDs4.6 (2.5-4.0cm) FS (%) 25.0 %SV91.0 ml LVEF(%)45.0 (>50%) Aortic Valve AoV Peak Dylan.223.1cm/sAoV VTI38.7cm AO Peak GR.19.9mmHgLVOT VTI 19.59cm AO Mean GR.11mmHgAVA (VTI)2.10cm2 AI P 1/2 Pfpi745so Mitral Valve MV E Yikfbydt20.3cm/sMV DECEL LQPK74va MV A Ehdmdehh583.2cm/sE/A Ratio0.9 TDI Lateral E' P. V5.41cm/sE/Lateral E'18.0 Tricuspid Valve TR P. Wcwclrdj381qn/sRAP KNQNEVVD1xlWn TR Peak Gr.40jxMpJZEO18nwJp LEFT VENTRICLE The Left Ventricle is mildly dilated. There is mild concentric left ventricular hypertrophy. The syst olic function is severely impaired. EF 25% There is global hypokinesis. Septal motion suggestive of p acing/condution defect. Tissue Doppler imaging reveals moderate left ventricular diastolic dysfunctio n. RIGHT VENTRICLE The right ventricle is normal size. The right ventricular systolic function is normal. There is a pac emaker/ICD lead in the right ventricle. ATRIA The left atrium is mildly dilated. The right atrium is mildly dilated. A pacemaker is seen in the rig ht atrium consistent with history. The interatrial septum is intact with no evidence for an atrial se ptal defect or patent foramen ovale as noted on 2-D or Doppler imaging. AORTIC VALVE The aortic valve is calcified with restricted leaflet mobility and not well visualized. Doppler and C olor Flow revealed trace aortic regurgitation. There is no significant aortic valvular stenosis by do ppler criteria, visually the valve appears moderately stenotic. Cannot rule out low gradient, severe MITRAL VALVE The mitral valve is calcified but opens well. Mitral annular calcification is mild. There is no evide nce of mitral valve prolapse. There is no mitral valve stenosis. Doppler and Color-flow revealed mild mitral regurgitation. TRICUSPID VALVE The tricuspid valve is normal in structure and function. Doppler and Color Flow revealed mild eccentr ic tricuspid regurgitation. There is moderate pulmonary hypertension. The PA pressure was estimated a t 56 mmHg. There is no tricuspid valve stenosis. PULMONIC VALVE The pulmonic valve is not well visualized. Doppler and Color Flow revealed no pulmonic valvular regur gitation. There is no pulmonic valvular stenosis. GREAT VESSELS The aortic root is normal in size. The ascending aorta is not well seen. The IVC is normal in size an d collapses <50% with inspiration. PERICARDIAL EFFUSION There is moderate left pleural effusion. There is no evidence of significant pericardial effusion. Critical Notification Critical Value: No <Conclusion> There is global hypokinesis. Septal motion suggestive of pacing/condution defect. The systolic function is severely impaired. EF 25% There is a pacemaker/ICD lead in the right ventricle. There is no significant aortic valvular stenosis by doppler criteria, visually the valve appears mode rately stenotic. Cannot rule out low gradient, severe Doppler and Color Flow revealed mild eccentric tricuspid regurgitation. There is moderate pulmonary h ypertension. The PA pressure was estimated at 56 mmHg. There is moderate left pleural effusion. Signed by : Grover Solitario, Electronically Approved : 12/24/2018 08:06:25
[2018-12-24] MEDS: ALBUTEROL SULFATE 2.5 MG/3 ML NEBU. NEB SCH ×4 (08:32→19:41)
[2018-12-24] MEDS: LACTOBACILLUS RHAMNOSUS GG 1 CAPSULE. PO SCH ×2 (09:00→21:14)
[2018-12-24] MEDS: METOPROLOL TART IMMED RELEASE 25 MG TABLET. PO SCH ×2 (09:00→21:14)
[2018-12-24] MEDS: LISINOPRIL 5 MG TABLET. PO SCH (09:00)
[2018-12-24] MEDS ORDERED: IODIXANOL 320 MG/ML 100 ML VIAL. ONE (10:20)
[2018-12-24] MEDS ORDERED: LIDOCAINE 1% PF 2 ML VIAL. ONE (10:21)
--- NOTE | 2018-12-24 11:06 | PDOC ---
PULMONARY PROGRESS NOTES Subjective feels better off BIPAP Vitals Vital Signs Date Time Temp Pulse Resp B/P (MAP) Pulse Ox O2 Delivery O2 Flow Rate FiO2 12/24/18 08:33 98 Nasal Cannula 5.0 12/24/18 08:00 99.1 80 24 123/71 (88) 99.1 ROS: No Nausea, No Chest Pain, No Abdominal Pain, No Increase Cough General: Alert, No acute distress Lungs: Other (decrease bases) Cardiovascular: S1, S2 Abdomen: Soft, Non-tender Neuro Exam: Alert Extremities: Other (EDEMA) Skin: Warm Labs Laboratory Tests Test 12/22/18 11:32 12/22/18 14:35 12/22/18 16:47 12/22/18 18:55 Urine Collection Type Unknown Urine Color Yellow Urine Clarity Clear Urine pH 5.0 Urine Specific [employer] 1.020 Urine Protein >=300 mg/dL (NEG-TRACE) Urine Glucose (UA) 250 mg/dL (NEG) Urine Ketones (Stick) Negative mg/dL (NEG) Urine Blood Small (NEG) Urine Nitrite Negative (NEG) Urine Bilirubin Negative (NEG) Urine Urobilinogen Dipstick 0.2 mg/dL (0.2 mg/dL) Urine Leukocyte Esterase Negative (NEG) Urine RBC Occ /HPF (0-2) Urine WBC 0 /HPF (0-4) Urine Squamous Epithelial Cells Mod /LPF Urine Amorphous Sediment Present /HPF Urine Bacteria Few /HPF (0-FEW) Troponin I Quantitative 1.430 ng/mL (0.000-0.055) 0.761 ng/mL (0.000-0.055) Glucose (Fingerstick) 124 mg/dL (70-99) Test 12/22/18 20:05 12/22/18 20:20 12/22/18 21:56 12/23/18 04:00 O2 Saturation 97 % (92-99) 95 % (92-99) Arterial Blood pH 7.32 (7.35-7.45) 7.35 (7.35-7.45) Arterial Blood pH (Temp corrected) 7.30 Arterial Blood pCO2 at Patient Temp 56 mmHg (35-46) 54 mmHg (35-46) Arterial Blood pCO2 (Temp correct) 62 mmHg Arterial Blood pO2 at Patient Temp 103 mmHg (65-108) 81 mmHg (65-108) Arterial Blood pO2 (Temp corrected) 116 mmHg Arterial Blood HCO3 29 mmol/L (21-28) 30 mmol/L (21-28) Arterial Blood Base Excess 2 mmol/L (-3-3) 3 mmol/L (-3-3) FiO2 60 50 Sodium Level 141 mmol/L (136-145) 139 mmol/L (136-145) Potassium Level 3.6 mmol/L (3.5-5.1) 3.4 mmol/L (3.5-5.1) Chloride Level 97 mmol/L (98-107) 99 mmol/L (98-107) Carbon Dioxide Level 32 mmol/L (21-32) 30 mmol/L (21-32) Anion Gap 12 (6-14) 10 (6-14) Blood Urea Nitrogen 36 mg/dL (7-20) 44 mg/dL (7-20) Creatinine 3.7 mg/dL (0.6-1.0) 4.0 mg/dL (0.6-1.0) Estimated GFR (Cockcroft-Gault) 12.3 11.2 Glucose Level 178 mg/dL (70-99) 165 mg/dL (70-99) Calcium Level 8.4 mg/dL (8.5-10.1) 7.9 mg/dL (8.5-10.1) Magnesium Level 1.7 mg/dL (1.8-2.4) 2.3 mg/dL (1.8-2.4) Troponin I Quantitative 0.790 ng/mL (0.000-0.055) Triglycerides Level 91 mg/dL (0-150) Cholesterol Level 114 mg/dL (0-200) LDL Cholesterol, Calculated 50 mg/dL (0-100) VLDL Cholesterol, Calculated 18 mg/dL (0-40) Non-HDL Cholesterol Calculated 68 mg/dL (0-129) HDL Cholesterol 46 mg/dL (40-60) Cholesterol/HDL Ratio 2.5 Test 12/24/18 03:00 Heparin Anti-Xa Act, Unfractionated > 1.10 IU/mL (0.30-0.70) Laboratory Tests Test 12/24/18 03:00 Heparin Anti-Xa Act, Unfractionated > 1.10 IU/mL (0.30-0.70) Medications Active Scripts Medications Dose Route/Sig Max Daily Dose Days Date Category Lisinopril 40 Mg Tablet 20 Mg PO DAILY 30 07/23/18 Rx Levothyroxine Sodium 150 Mcg Tablet 150 Mcg PO DAILYAC 08/21/17 Reported Albuterol Sulfate Neb Soln (Albuterol Sulfate) 2.5 Mg/3 Ml Vial.neb 2.5 Mg NEB RTQID 08/26/15 Rx Novolog Flexpen (Insulin Aspart) 100 Unit/1 Ml Insuln.pen 5 Unit SQ TIDWMEALS 08/21/[address] chest c/w CHF/ Effusions Impression . IMPRESSION: 1. Acute on chronic hypoxemic hypercapnic respiratory failure due to CHF ( EF 25%/ Severe ) 2. Pulmonary embolism. SMALL RUL, less likely of clinical significance 3. Bilateral pleural effusion. 4. Bilateral atelectasis. 5. Nausea and vomiting. 6. Possible aspiration. 7. Hypertension. 8. End-stage renal disease. 9. ANXIETY 10. COPD Plan . DOUBT PE IS MAJOR REASON FOR DECREASE 02 SAT IT IS VERY SMALL BIPAP PRN CATH TODAY HD WITH UF CXR TODAY NEBS IR TO DRAIN EFFUSION ELIQUIS ON HOLD/ ON HEPARIN. WILL NEED 4-6 WEEKS OF AC 02 D/W RN/RT AND PATIENT CCT 30 MINUTES ANGY FONTANEZ MD Dec 24, 2018 11:06
--- NOTE | 2018-12-24 12:40 | PDOC ---
Renal-Progress Notes Subjective Notes Notes LESS SOB History of Present Illness Hx of present illness STABLE Vitals Vitals Vital Signs Date Time Temp Pulse Resp B/P (MAP) Pulse Ox O2 Delivery O2 Flow Rate FiO2 12/24/18 11:00 78 29 91/41 (58) 92 Nasal Cannula 5.0 12/24/18 08:00 99.1 99.1 Weight Weight [ ] I.O. Intake and Output Intake and Output 12/24/18 07:00 Intake Total 810 ml Output Total 150 ml Balance 660 ml Intake Oral 710 ml IV Total 100 ml Output Urine Total 150 ml # Voids 1 # Bowel Movements 1 Labs Labs Laboratory Tests Test 12/24/18 03:00 Heparin Anti-Xa Act, Unfractionated > 1.10 IU/mL (0.30-0.70) Review of Systems Constitutional: yes: weakness, alert, oriented Ears/Nose/Throat: Yes: no symptom reported Pulmonary: Yes dyspnea Cardiovascular: Yes no symptom reported Gastrointestional: Yes: constipation Genitourinary: Yes: no symptom reported Musculoskeletal: Yes: no symptom reported Skin: Yes no symptom reported Psychiatric/Neurological: Yes: no symptom reported Physical Exam General Appearance: no apparent distress Respiratory: decreased breath sounds Heart: S1S2 Abdomen: soft, bowel sounds present Genitourinary: bladder flat Extremities: pulses present Neurology: alert, Ext weakness Musculoskeletal: Osteoarthritis Assessment Assessment IMP ESRD ANEMIA PULMONARY EMBOLI ACUTE ON CHRONIC RESP FAILURE DM II HTN NON COMPLIANCE(RARELY STAYS FOR HER FULL HD TX) PLAN HD TOMORROW PULM SUPPORT ANTICOAGULATION SUSPECT SOB MORE DUE TO FLUID THAN PE ENC COMPLIANCE WILL FOLLOW KAYLAH ROSADO MD Dec 24, 2018 12:40
--- NOTE | 2018-12-24 13:12 | RAD ---
AP chest, 12/24/2018: HISTORY: Congestive heart failure Comparison is made to the study of 12/22/2018. The patient is rotated to the left. The left-sided transvenous pacing device is unchanged. The heart size is unchanged. There is an increasing left lower chest opacity compatible with pleural fluid and underlying atelectasis. Right infrahilar infiltrate appears to have worsened, although patient rotation is contributing to this appearance. There is probably pleural fluid layering posteriorly on the right. There is no evidence of pneumothorax. IMPRESSION: Ongoing congestive heart failure with an enlarging left pleural effusion. Electronically signed by: Catracho Fan MD (12/24/2018 1:09 PM) [facility]
[2018-12-24] MEDS ORDERED: fentaNYL PF VIAL 100 MCG/2 ML VIAL ONE ×2 (13:15→14:17)
[2018-12-24] MEDS ORDERED: HEPARIN for IV BOLUS 10,000 UNIT/10 ML VIAL. ONE (13:16)
[2018-12-24] MEDS ORDERED: NITROGLYCERIN 200 MCG/2 ML SYRINGE FOR CATH/VASC LAB. ONE (13:16)
[2018-12-24] MEDS ORDERED: MIDAZOLAM HCL/PF 2 MG/2 ML VIAL. ONE ×2 (13:16→14:17)
[2018-12-24] MEDS ORDERED: VERAPAMIL 5 MG/2 ML VIAL. ONE ×2 (13:16→13:30)
[2018-12-24] MEDS ORDERED: LIDOCAINE 1% Multi-Dose 20 ML VIAL. ONE (13:57)
[2018-12-24] MEDS ORDERED: LIDOCAINE 1% PF 2 ML VIAL. INJ ONE (14:00)
[2018-12-24] MEDS ORDERED: VERAPAMIL 5 MG/2 ML VIAL. IART ONE (14:00)
[2018-12-24] MEDS ORDERED: NITROGLYCERIN 200 MCG/2 ML SYRINGE FOR CATH/VASC LAB. IART ONE (14:00)
[2018-12-24] MEDS ORDERED: HEPARIN for IV BOLUS 10,000 UNIT/10 ML VIAL. IART ONE (14:00)
[2018-12-24] MEDS ORDERED: IODIXANOL 320 MG/ML 100 ML VIAL. IART ONE (14:00)
[2018-12-24] MEDS ORDERED: fentaNYL PF VIAL 100 MCG/2 ML VIAL IV ONE ×2 (14:00→14:30)
[2018-12-24] MEDS ORDERED: MIDAZOLAM HCL/PF 2 MG/2 ML VIAL. IV ONE ×2 (14:00→14:30)
[2018-12-24] MEDS ORDERED: LIDOCAINE 1% Multi-Dose 20 ML VIAL. INJ ONE (14:00)
[2018-12-24] MEDS ORDERED: IV NORMAL SALINE 500ML BAG 500 ML IV ONE (14:30)
--- NOTE | 2018-12-24 16:08 | CARD ---
MR#: [id number] Date of Study: 12/24/2018 Ordering Physician: LAURA SOLITARIO, Referring Physician: NELI AMOR Tech: RAEGAN MULLIGAN RTR APPROVED REPORT Technologist: RAEGAN MULLIGAN RTR Nurse: ELI PATRICIO RN Procedure(s) performed: MODERATE SEDATION TIME: 56 MINUTES FLUORO TIME: 1.8 MIN DOSE:44.4 GYCM2 CONTRAST: 44 NYHA: CLASS IV C, Coronary angiography HISTORY The patient is a 68 year-old female with a history of : renal failure with dialysis, diabetes mellitu s with treatment, peripheral vascular disease, coronary artery disease, tobacco history() , hypertens ion, dyslipidemia. INDICATION The indication(s) include : non-STEMI . CS Clinical Frailty Scale [facility] Clinical Frailty Scale: Severely Frail Heart Failure Heart Failure: Yes If Yes, Newly Diagnosed: No If Yes, HF Type: Diastolic Systolic If Yes, NYHA Class: Class III PROCEDURE NARRATIVE INFORMED CONSENT: After explaining the risks and benefits of the procedure and alternatives, informed consent was obtained. The patient was brought electively to the cardiac catheterization lab. A timeout was performed confi rming the patient's name, date of , procedure, and site of procedure. All necessary personnel w ere wearing the appropriate protective equipment and radiation monitor devices. (See nursing notes for medications administered). ACCESS: The right wrist was sterilely prepped and draped in the usual fashion. The right wrist was infiltrat ed with 1 mL of 2% lidocaine for subcutaneous anesthesia. Due to extremely small caliber vessel and s evere PAD, right radial access could not be obtained. Next, 10 mL of 2% lidocaine was infiltrated in the right groin. Due to prior surgery, scar tissue the advancement of the sheath was difficult but ul timately after serial dilation a 5Fr sheath was placed. CORONARY ANGIOGRAPHY: Left coronary angiography was performed using a 5F JL4 catheter. Left ventricular end diastolic pres sure was obtained with a pigtail catheter and pullback was performed. All catheter exchanges and adv ancements were performed over a guidewire. FINDINGS: HEMODYNAMICS: LVEDP 22 mm Hg No gradient on LV to aortic pullback. AO: 128/78 LEFT VENTRICULOGRAM: Deferred due to known low EF of 30%. CORONARY ANGIOGRAPHY: LM is a large caliber vessel with a distal 20% stenosis. LAD is a large caliber vessel with a proximal 40-50% stenosis. Ramus is a moderate caliber vessel with an ostial 20% stenosis and patent proximal stent. LCx is a moderate caliber non-dominant vessel with mild luminal irregularities. RCA is a moderate caliber dominant vessel with a proximal to mid 100% occlusion. The distal vessel is seen to fill via left to right collaterals *Overall, no significant change from prior angiography CLOSURE: At case completion the right femoral sheath was removed via manual compression and hemostasis was ach ieved. Limited RCFA angiography revealed a proximal L SFA aneurysm (known on prior imaging) with sapna ateral flow noted in the profunda. COMPLICATIONS: The patient tolerated the procedure well and there were no immediate complications. Due to her severe comorbidities, the patient had a difficult time laying flat in the cath table. She required high lev el of care with her respiration on bipap. Conclusion 1. Elevated left sided filling pressures. (LVEDP 22 mm Hg) 2. Three vessel coronary disease. 3. No significant change compared to prior angiogram 4. Known severe PAD. Recommendations 1. Continue aggressive medical therapy 2. Plan for thoracentesis tomorrow per pulmonary team 3. Continue fluid removal with HD. Signed by : Laura Solitario, Electronically Approved : 12/24/2018 16:07:34
--- NOTE | 2018-12-24 17:13 | PDOC ---
ICU PROGRESS NOTES Subjective She was off bipap by last evening and able to sleep overnight without dyspnea but CXR today shows increasing left pleural effusion and ongoing CHF, she has had 5 liters of fluid removed in past 2 days with dialysis, her troponin increased to 1.4 and had heart cath today. While NPO for heart cath she complained about not having fluids to drink, she has a hx of excessive fluid intake between dialysis days. She denies overnight chest pain and has not had any nausea Objective Objective A&O, NAD HRRR diminished breath sounds but no dyspnea hands warm Vitals Vital Signs Date Time Temp Pulse Resp B/P (MAP) Pulse Ox O2 Delivery O2 Flow Rate FiO2 12/24/18 16:17 96 Nasal Cannula 5.0 12/24/18 16:00 86 22 114/53 (73) 12/24/18 15:26 98.7 98.7 Input & Output Intake and Output 12/24/18 07:00 Intake Total 810 ml Output Total 150 ml Balance 660 ml Intake Oral 710 ml IV Total 100 ml Output Urine Total 150 ml # Voids 1 # Bowel Movements 1 Ventilator Settings O2 Flow Rate: 5.0 Oxygen Delivery Device: Nasal Cannula Temperature (97-99 F): Yes FiO2: 50 SpO2: 96 DVT Prophylaxis DVT Prophylaxis yes Stress Ulcer Prophylaxis Stress Ulcer Prophylaxis yes Imaging Imaging AP chest, 12/24/2018: HISTORY: Congestive heart failure Comparison is made to the study of 12/22/2018. The patient is rotated to the left. The left-sided transvenous pacing device is unchanged. The heart size is unchanged. There is an increasing left lower chest opacity compatible with pleural fluid and underlying atelectasis. Right infrahilar infiltrate appears to have worsened, although patient rotation is contributing to this appearance. There is probably pleural fluid layering posteriorly on the right. There is no evidence of pneumothorax. IMPRESSION: Ongoing congestive heart failure with an enlarging left pleural effusion. Medications Medications Current Medications Apixaban (Eliquis) 5 mg BID PO ; Start 12/29/18 at 09:00; Stop 12/29/18 at 09:00; Status DC Aspirin (Ecotrin) 81 mg DAILYWBKFT PO ; Start 12/24/18 at 08:00 Fentanyl Citrate (Fentanyl 2ml Vial) 100 mcg 1X ONCE IV Last administered on at 14:00; Start 12/24/18 at 14:00; Stop 12/24/18 at 14:04; Status DC Fentanyl Citrate (Fentanyl 2ml Vial) 100 mcg 1X ONCE IV Last administered on at 14:30; Start 12/24/18 at 14:30; Stop 12/24/18 at 14:32; Status DC Fentanyl Citrate (Fentanyl 2ml Vial) 100 mcg STK-MED ONCE .ROUTE ; Start at 13:15; Stop 12/24/18 at 13:16; Status DC Fentanyl Citrate (Fentanyl 2ml Vial) 100 mcg STK-MED ONCE .ROUTE ; Start at 14:17; Stop 12/24/18 at 14:19; Status DC Heparin Sodium (Porcine) (Heparin Sodium) 2,500 unit 1X ONCE IART ; Start at 14:00; Stop 12/24/18 at 14:04; Status DC Heparin Sodium (Porcine) (Heparin Sodium) 3,100 unit PRN Q6HRS PRN IV FOR UFH LEVEL LESS THAN 0.2; Start 12/23/18 at 20:00 Heparin Sodium (Porcine) (Heparin Sodium) 10,000 unit STK-MED ONCE .ROUTE ; Start 12/24/18 at 13:16; Stop 12/24/18 at 13:17; Status DC Heparin Sodium/ Dextrose 500 ml @ 0 mls/hr CONT PRN IV SEE I/O RECORD Last administered on 12/23/18at 21:06; Start 12/23/18 at 20:00 Heparin Sodium/ Sodium Chloride 1,000 ml @ As Directed STK-MED ONCE .ROUTE ; Start 12/24/18 at 10:21; Stop 12/24/18 at 10:22; Status DC Heparin Sodium/ Sodium Chloride (HEPARIN for ARTERIAL LINE FLUSH) 1,000 unit 1X ONCE IART Last administered on 12/24/18at 14:00; Start 12/24/18 at 14:00; Stop 12/24/18 at 14:04; Status DC Heparin Sodium/ Sodium Chloride (HEPARIN for ARTERIAL LINE FLUSH) 1,000 unit 1X ONCE IART Last administered on 12/24/18at 14:00; Start 12/24/18 at 14:00; Stop 12/24/18 at 14:04; Status DC Iodixanol (Visipaque 320) 100 ml 1X ONCE IART Last administered on 12/24/18at 14 :00; Start 12/24/18 at 14:00; Stop 12/24/18 at 14:04; Status DC Iodixanol (Visipaque 320) 100 ml STK-MED ONCE .ROUTE ; Start 12/24/18 at 10:20; Stop 12/24/18 at 10:21; Status DC Lactobacillus Rhamnosus (Culturelle) 1 cap BID PO Last administered on at 20:55; Start 12/23/18 at 21:00 Lidocaine HCl (Lidocaine 1% 20ml Vial) 20 ml 1X ONCE INJ Last administered on 12/24/18at 14:00; Start 12/24/18 at 14:00; Stop 12/24/18 at 14:08; Status DC Lidocaine HCl (Lidocaine 1% 20ml Vial) 20 ml STK-MED ONCE .ROUTE ; Start at 13:57; Stop 12/24/18 at 13:58; Status DC Lidocaine HCl (Xylocaine-Mpf 1% 2ml Vial) 2 ml 1X ONCE INJ Last administered on 12/24/18at 14:00; Start 12/24/18 at 14:00; Stop 12/24/18 at 14:04; Status DC Lidocaine HCl (Xylocaine-Mpf 1% 2ml Vial) 2 ml STK-MED ONCE .ROUTE ; Start at 10:21; Stop 12/24/18 at 10:22; Status DC Lisinopril (Prinivil) 2.5 mg DAILY PO ; Start 12/24/18 at 09:00 Metoprolol Tartrate (Lopressor) 12.5 mg BID PO Last administered on 12/23/18at 20 :55; Start 12/23/18 at 21:00 Midazolam HCl (Versed) 2 mg 1X ONCE IV Last administered on 12/24/18at 14:00; Start 12/24/18 at 14:00; Stop 12/24/18 at 14:04; Status DC Midazolam HCl (Versed) 2 mg 1X ONCE IV Last administered on 12/24/18at 14:30; Start 12/24/18 at 14:30; Stop 12/24/18 at 14:32; Status DC Midazolam HCl (Versed) 2 mg STK-MED ONCE .ROUTE ; Start 12/24/18 at 13:16; Stop 12/24/18 at 13:17; Status DC Midazolam HCl (Versed) 2 mg STK-MED ONCE .ROUTE ; Start 12/24/18 at 14:17; Stop 12/24/18 at 14:19; Status DC Nitroglycerin (Nitroglycerin) 200 mcg 1X ONCE IART ; Start 12/24/18 at 14:00; Stop 12/24/18 at 14:04; Status DC Nitroglycerin (Nitroglycerin) 200 mcg STK-MED ONCE .ROUTE ; Start 12/24/18 at 13: 16; Stop 12/24/18 at 13:17; Status DC Sodium Chloride 500 ml @ 500 mls/hr 1X ONCE IV Last administered on 12/24/18at 14:30; Start 12/24/18 at 14:30; Stop 12/24/18 at 15:29; Status DC Verapamil HCl (Verapamil) 2.5 mg 1X ONCE IART ; Start 12/24/18 at 14:00; Stop at 14:04; Status DC Verapamil HCl (Verapamil) 5 mg STK-MED ONCE .ROUTE ; Start 12/24/18 at 13:16; Stop 12/24/18 at 13:17; Status DC Physical Exam ROS: No Nausea, No Chest Pain, No Abdominal Pain, No Increase Cough General: Alert, Oriented X4, No acute distress Mental Status: Other Lungs: Other (decrease bases) Cardiovascular: S1, S2 Abdomen: Soft, Non-tender Extremities: Other (EDEMA) Skin: Warm Neuro Exam: Alert Impression . 1)acute on chronic respiratory failure - multifactorial with emphysema, COPD, PE , CHF, pleural effusions, atelectasis and non compliance with BP meds - continue Bipap, neb tx and tx of CHF with medication and dialysis 2)Elevated troponin- Cardiology consulted. Heart cath today showed stable CAD. Pt has ICD 3)Pulmonary embolism- pt has no history of PE or DVT. Started on Eliquis, switched to Heparin. Pulmonary consulted. Initially on Bipap but improved and during dialysis this am her sats dropped and was placed back on Bipap and will be transferred to ICU. LE U/S and CT abd/pelvis negative for PE source, she may need Heparin, ABG ordered. 4)acute on chronic systolic and diastolic CHF- severe, improved with dialysis. 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 6)DM2- controlled with diet, pt not taking medications. Now on SSI. HbA1C 5.7 7)Hypothyroidism- TSH currently at goal. Pt continued on levothyroxine 8)ESRD- Renal consulted, dialysis continued 9)HLD- pt continued on Atorvastatin 10mg 10)COPD/ emphysema per CT chest- pt currently only using albuterol at home, continue neb tx 11)PEM- mild 12)Anemia- mild 13) left pleural effusion - thoracentesis planned for tomorrow 14) PAD with hx of left AKA and right fempop Plan . as above Tristan PENG MD Dec 24, 2018 17:13
[2018-12-24] MEDS: ANTI-COAG MONITOR BY PHARMACY. MC PRN ×2 (17:22→17:26)
[2018-12-24] MEDS: ASPIRIN ENTERIC COATED 81 MG TABLET.DR. PO SCH (18:27)
[2018-12-24] MEDS: ATORVASTATIN CALCIUM 10 MG TABLET. PO SCH (21:14)
[2018-12-25] MEDS: HEPARIN 25,000UTS/500ML PREMIX 500 ML IV PRN (01:44)
[2018-12-25 03:38] VITALS: BP 103/48
[2018-12-25 03:38] LABS: HEMATOCRIT 24.9 % (36.0-47.0); HEMOGLOBIN 8.1 g/dL (12.0-15.5); RED BLOOD COUNT 2.62 x10^6/uL (3.50-5.40); RED CELL DISTRIBUTION WIDTH 15.9 % (11.5-14.5); WHITE BLOOD COUNT 11.8 x10^3/uL (4.0-11.0)
[2018-12-25 04:00] LABS: CALCIUM 7.8 mg/dL (8.5-10.1); CREATININE 5.4 mg/dL (0.6-1.0); GFR 7.9; POTASSIUM 3.6 mmol/L (3.5-5.1)
[2018-12-25] MEDS: PIPERACILLIN/TAZOBACTAM 2.25 GM in IV NORMAL SALINE 50ML 50 ML IV SCH ×3 (05:35→18:48)
[2018-12-25] MEDS: LEVOTHYROXINE 150 MCG TABLET PO SCH (05:37)
[2018-12-25 07:00] VITALS: BP 129/60
[2018-12-25 08:04] LABS: PROTHROMBIN TIME PATIENT 16.9 SEC (11.7-14.0)
[2018-12-25] MEDS: ALBUTEROL SULFATE 2.5 MG/3 ML NEBU. NEB SCH ×4 (08:04→20:00)
[2018-12-25] MEDS: LISINOPRIL 5 MG TABLET. PO SCH (08:57)
[2018-12-25] MEDS: METOPROLOL TART IMMED RELEASE 25 MG TABLET. PO SCH ×2 (08:57→20:58)
[2018-12-25] MEDS: LACTOBACILLUS RHAMNOSUS GG 1 CAPSULE. PO SCH ×2 (08:57→20:57)
[2018-12-25 09:45] VITALS: BP 109/60
[2018-12-25] MEDS: ASPIRIN ENTERIC COATED 81 MG TABLET.DR. PO SCH (10:11)
[2018-12-25 10:47] VITALS: BP 139/62
--- NOTE | 2018-12-25 11:10 | PDOC ---
PULMONARY PROGRESS NOTES Subjective feels better, POST THORACENTESIS off BIPAP Vitals Vital Signs Date Time Temp Pulse Resp B/P (MAP) Pulse Ox O2 Delivery O2 Flow Rate FiO2 12/25/18 10:47 97.5 68 16 139/62 (87) 97 Nasal Cannula 5.0 97.5 ROS: No Nausea, No Chest Pain, No Abdominal Pain, No Increase Cough General: Alert, Oriented X4, No acute distress Lungs: Other (decrease bases) Cardiovascular: S1, S2 Abdomen: Soft, Non-tender Neuro Exam: Alert Extremities: Other (EDEMA) Skin: Warm Labs Laboratory Tests Test 12/24/18 03:00 12/25/18 03:20 12/25/18 09:30 Heparin Anti-Xa Act, Unfractionated > 1.10 IU/mL (0.30-0.70) White Blood Count 11.8 x10^3/uL (4.0-11.0) Red Blood Count 2.62 x10^6/uL (3.50-5.40) Hemoglobin 8.1 g/dL (12.0-15.5) Hematocrit 24.9 % (36.0-47.0) Mean Corpuscular Volume 95 fL (79-100) Mean Corpuscular Hemoglobin 31 pg (25-35) Mean Corpuscular Hemoglobin Concent 32 g/dL (31-37) Red Cell Distribution Width 15.9 % (11.5-14.5) Platelet Count 110 x10^3/uL (140-400) Prothrombin Time 16.9 SEC (11.7-14.0) Prothromb Time International Ratio 1.4 (0.8-1.1) Sodium Level 135 mmol/L (136-145) Potassium Level 3.6 mmol/L (3.5-5.1) Chloride Level 95 mmol/L (98-107) Carbon Dioxide Level 27 mmol/L (21-32) Anion Gap 13 (6-14) Blood Urea Nitrogen 47 mg/dL (7-20) Creatinine 5.4 mg/dL (0.6-1.0) Estimated GFR (Cockcroft-Gault) 7.9 Glucose Level 115 mg/dL (70-99) Calcium Level 7.8 mg/dL (8.5-10.1) Body Fluid pH 7.35 Laboratory Tests Test 12/25/18 03:20 12/25/18 09:30 White Blood Count 11.8 x10^3/uL (4.0-11.0) Red Blood Count 2.62 x10^6/uL (3.50-5.40) Hemoglobin 8.1 g/dL (12.0-15.5) Hematocrit 24.9 % (36.0-47.0) Mean Corpuscular Volume 95 fL (79-100) Mean Corpuscular Hemoglobin 31 pg (25-35) Mean Corpuscular Hemoglobin Concent 32 g/dL (31-37) Red Cell Distribution Width 15.9 % (11.5-14.5) Platelet Count 110 x10^3/uL (140-400) Prothrombin Time 16.9 SEC (11.7-14.0) Prothromb Time International Ratio 1.4 (0.8-1.1) Sodium Level 135 mmol/L (136-145) Potassium Level 3.6 mmol/L (3.5-5.1) Chloride Level 95 mmol/L (98-107) Carbon Dioxide Level 27 mmol/L (21-32) Anion Gap 13 (6-14) Blood Urea Nitrogen 47 mg/dL (7-20) Creatinine 5.4 mg/dL (0.6-1.0) Estimated GFR (Cockcroft-Gault) 7.9 Glucose Level 115 mg/dL (70-99) Calcium Level 7.8 mg/dL (8.5-10.1) Body Fluid pH 7.35 Medications Active Scripts Medications Dose Route/Sig Max Daily Dose Days Date Category Lisinopril 40 Mg Tablet 20 Mg PO DAILY 30 07/23/18 Rx Levothyroxine Sodium 150 Mcg Tablet 150 Mcg PO DAILYAC 08/21/17 Reported Albuterol Sulfate Neb Soln (Albuterol Sulfate) 2.5 Mg/3 Ml Vial.neb 2.5 Mg NEB RTQID 08/26/15 Rx Novolog Flexpen (Insulin Aspart) 100 Unit/1 Ml Insuln.pen 5 Unit SQ TIDWMEALS 08/21/[address] chest c/w CHF/ Effusions CATH Conclusion 1. Elevated left sided filling pressures. (LVEDP 22 mm Hg) 2. Three vessel coronary disease. 3. No significant change compared to prior angiogram 4. Known severe PAD. Recommendations 1. Continue aggressive medical therapy 2. Plan for thoracentesis tomorrow per pulmonary team 3. Continue fluid removal with HD. Impression . IMPRESSION: 1. Acute on chronic hypoxemic hypercapnic respiratory failure due to CHF ( EF 25%/ ?Severe ) 2. Pulmonary embolism. SMALL RUL, less likely of clinical significance 3. Bilateral pleural effusion.s/p Left tap 4. Bilateral atelectasis. 5. Nausea and vomiting. 6. Possible aspiration. 7. Hypertension. 8. End-stage renal disease. 9. ANXIETY 10. COPD Plan . DOUBT PE IS MAJOR CONCERN. IT IS VERY SMALL CAN START ELIQUIS . WILL NEED 8-12 WEEKS OF AC BIPAP PRN CATH REVIEWED HD WITH UF CXR POST TAP TODAY NEBS 02 D/W RN/RT AND PATIENT ANGY FONTANEZ MD Dec 25, 2018 11:10
--- NOTE | 2018-12-25 11:19 | PDOC ---
MERLYN MULLIGAN SPIRAL RUNNER 12/25/18 1119: CARDIO Progress Notes Date and Time Date of Service 12/25/18 Time of Evaluation 1040 Subjective Subjective: No Chest Pain Vitals Vitals Vital Signs Date Time Temp Pulse Resp B/P (MAP) Pulse Ox O2 Delivery O2 Flow Rate FiO2 12/25/18 10:47 97.5 68 16 139/62 (87) 97 Nasal Cannula 5.0 97.5 Weight Weight [ ] Input and Output Intake and Output Intake and Output 12/25/18 07:00 Intake Total 374 ml Output Total 0 ml Balance 374 ml Intake Oral 150 ml IV Total 224 ml Output Urine Total 0 ml Laboratory Labs Laboratory Tests Test 12/25/18 03:20 12/25/18 09:30 White Blood Count 11.8 x10^3/uL (4.0-11.0) Red Blood Count 2.62 x10^6/uL (3.50-5.40) Hemoglobin 8.1 g/dL (12.0-15.5) Hematocrit 24.9 % (36.0-47.0) Mean Corpuscular Volume 95 fL (79-100) Mean Corpuscular Hemoglobin 31 pg (25-35) Mean Corpuscular Hemoglobin Concent 32 g/dL (31-37) Red Cell Distribution Width 15.9 % (11.5-14.5) Platelet Count 110 x10^3/uL (140-400) Prothrombin Time 16.9 SEC (11.7-14.0) Prothromb Time International Ratio 1.4 (0.8-1.1) Sodium Level 135 mmol/L (136-145) Potassium Level 3.6 mmol/L (3.5-5.1) Chloride Level 95 mmol/L (98-107) Carbon Dioxide Level 27 mmol/L (21-32) Anion Gap 13 (6-14) Blood Urea Nitrogen 47 mg/dL (7-20) Creatinine 5.4 mg/dL (0.6-1.0) Estimated GFR (Cockcroft-Gault) 7.9 Glucose Level 115 mg/dL (70-99) Calcium Level 7.8 mg/dL (8.5-10.1) Body Fluid pH 7.35 Microbiology Micro Microbiology 12/23/18 Blood Culture - Preliminary, Resulted NO GROWTH AFTER 1 DAY Review of Systems Constitutional: yes: weakness, alert, oriented Ears/Nose/Throat: Yes: no symptom reported Pulmonary: Yes dyspnea Cardiovascular: Yes no symptom reported Gastrointestional: Yes: constipation Genitourinary: Yes: no symptom reported Musculoskeletal: Yes: no symptom reported Skin: Yes no symptom reported Psychiatric/Neurological: Yes: no symptom reported Physical Exam HEENT: Neck Supple W Full Motion Chest: Symmetric LUNGS: Clear to Auscultation Heart: S1S2, RRR Abdomen: Soft N/T Extremities: No Edema, Other (Left BKA) Neurology: alert, oriented, follow commands Assessment Assessment 1. Acute respiratory failure; multifactorial given acute PE, a/c HF and large left pleural effusion. S/p thoracentesis 2. Acute small PE 3. NSTEMI 4. Acute on chronic systolic HF 5. ICM s/p AICD (Biotronik); LVEF 30% 7. CAD s/p PCI/LUX to proximal ramus 08/2016. Cath unchanged from prior. Elevated filling pressures. 8. Hypertension; controlled 9. Hyperlipidemia; lipids on goal 10. ESRD on HD 11. Diabetes, II Recommendations Off heparin this am Resume Eliquis as per pulm Continue fluid off-loading via HD as per nephrology Continue statin, ASA, BB, and ACEi LAURA RIVERA MD 12/25/18 1850: CARDIO Progress Notes Plan Plan Pt. seen and examined. Agree with above FRUIT CANNER note. Her QRS complex has normalized. I am still concerned that she is having NSVT although Asensed, Vpaced morphology is also possible. Will plan for close monitoring of her device in light of her history. Her resp status has normalized after thoracentesis. Supportive care for P.E. Ok to DC tomorrow. Thanks. MERLYN MULLIGAN APRN Dec 25, 2018 11:19 LAURA RIVERA MD Dec 25, 2018 18:50
--- NOTE | 2018-12-25 12:23 | PDOC ---
Renal-Progress Notes Subjective Notes Notes LESS SOB AFTER THORACENTESIS History of Present Illness Hx of present illness DOING BETTER Vitals Vitals Vital Signs Date Time Temp Pulse Resp B/P (MAP) Pulse Ox O2 Delivery O2 Flow Rate FiO2 12/25/18 12:08 96 Nasal Cannula 5.0 12/25/18 10:47 97.5 68 16 139/62 (87) 97.5 Weight Weight [ ] I.O. Intake and Output Intake and Output 12/25/18 07:00 Intake Total 374 ml Output Total 0 ml Balance 374 ml Intake Oral 150 ml IV Total 224 ml Output Urine Total 0 ml Labs Labs Laboratory Tests Test 12/25/18 03:20 12/25/18 09:30 White Blood Count 11.8 x10^3/uL (4.0-11.0) Red Blood Count 2.62 x10^6/uL (3.50-5.40) Hemoglobin 8.1 g/dL (12.0-15.5) Hematocrit 24.9 % (36.0-47.0) Mean Corpuscular Volume 95 fL (79-100) Mean Corpuscular Hemoglobin 31 pg (25-35) Mean Corpuscular Hemoglobin Concent 32 g/dL (31-37) Red Cell Distribution Width 15.9 % (11.5-14.5) Platelet Count 110 x10^3/uL (140-400) Prothrombin Time 16.9 SEC (11.7-14.0) Prothromb Time International Ratio 1.4 (0.8-1.1) Sodium Level 135 mmol/L (136-145) Potassium Level 3.6 mmol/L (3.5-5.1) Chloride Level 95 mmol/L (98-107) Carbon Dioxide Level 27 mmol/L (21-32) Anion Gap 13 (6-14) Blood Urea Nitrogen 47 mg/dL (7-20) Creatinine 5.4 mg/dL (0.6-1.0) Estimated GFR (Cockcroft-Gault) 7.9 Glucose Level 115 mg/dL (70-99) Calcium Level 7.8 mg/dL (8.5-10.1) Body Fluid pH 7.35 Micro Micro Microbiology 12/23/18 Blood Culture - Preliminary, Resulted NO GROWTH AFTER 1 DAY Review of Systems Constitutional: yes: weakness, alert, oriented Ears/Nose/Throat: Yes: no symptom reported Pulmonary: Yes dyspnea Cardiovascular: Yes no symptom reported Gastrointestional: Yes: constipation Genitourinary: Yes: no symptom reported Musculoskeletal: Yes: no symptom reported Skin: Yes no symptom reported Psychiatric/Neurological: Yes: no symptom reported Physical Exam General Appearance: no apparent distress Respiratory: decreased breath sounds Heart: S1S2 Abdomen: soft, bowel sounds present Genitourinary: bladder flat Extremities: pulses present Neurology: alert, Ext weakness Musculoskeletal: Osteoarthritis Assessment Assessment IMP ESRD ANEMIA PULMONARY EMBOLI ACUTE ON CHRONIC RESP FAILURE DM II HTN NON COMPLIANCE(RARELY STAYS FOR HER FULL HD TX) S/P THORACENTESIS PLAN HD TODAY UF TO DW PULM SUPPORT ANTICOAGULATION SUSPECT SOB MORE DUE TO FLUID THAN PE ENC COMPLIANCE WILL FOLLOW KAYLAH ROSADO MD Dec 25, 2018 12:23
--- NOTE | 2018-12-25 13:15 | RAD ---
Ultrasound-guided left sided thoracentesis 12/25/2018 1:11 PM Indication: large left effusion. Shortness of breath Procedure: Informed consent was obtained. A timeout procedure was performed. Sonographic evaluation of the left chest was performed demonstrating moderate pleural effusion. The left posterior chest was prepped and draped in sterile fashion. 1% lidocaine without epinephrine was administered for local anesthesia. Real-time ultrasonographic guidance was used in passing a 5 [employer] catheter into the left pleural space. 1.5 L of serosanguineous pleural fluid was removed. Samples of fluid were sent to the lab for further evaluation per ordering physician request. The catheter was removed and pressure held to achieve hemostasis. A sterile dressing was applied. No immediate complications were identified. The patient tolerated the procedure well. Impression: left sided ultrasound-guided thoracentesis
--- NOTE | 2018-12-25 14:08 | RAD ---
Portable chest, 12/25/2018: HISTORY: Postthoracentesis evaluation Comparison is made to yesterday's study. The left-sided transvenous pacing device is unchanged. The heart is enlarged. The left pleural effusion has decreased in volume, apparently due to interval thoracentesis. There is persistent obscuration of the left hemidiaphragm compatible with residual pleural fluid and/or infiltrate. There is mild persistent right infrahilar atelectasis/infiltrate. No pneumothorax is evident. IMPRESSION: 1. Improved aeration of the left lower lung status post thoracentesis. 2. No new abnormality is detected. Electronically signed by: Catracho Fan MD (12/25/2018 2:06 PM) [facility]
[2018-12-25] MEDS ORDERED: DIALYSIS PATIENT. MC PRN ×2 (14:30)
[2018-12-25] MEDS ORDERED: IV NORMAL SALINE 1000ML BAG 1,000 ML IV PRN ×2 (14:30)
[2018-12-25] MEDS: ANTI-COAG MONITOR BY PHARMACY. MC PRN (15:33)
--- NOTE | 2018-12-25 16:05 | PDOC ---
PROGRESS NOTES Subjective She has transferred out of ICU and is currently in dialysis, no complications from heart cath, she had thoracentesis this am and f/u CXR shows no pneumothorax and improved aeration of left lung. She is breathing easily and aware of 36 oz fluid restriction daily. She is hopeful for discharge tomorrow Objective Afebrile General: NAD, pleasant, A&O Heart: RRR Lungs: improved breath sounds, loose cough Abd: obese but soft and non tender Ext: no edema of foot Portable chest, 12/25/2018: HISTORY: Postthoracentesis evaluation Comparison is made to yesterday's study. The left-sided transvenous pacing device is unchanged. The heart is enlarged. The left pleural effusion has decreased in volume, apparently due to interval thoracentesis. There is persistent obscuration of the left hemidiaphragm compatible with residual pleural fluid and/or infiltrate. There is mild persistent right infrahilar atelectasis/infiltrate. No pneumothorax is evident. IMPRESSION: 1. Improved aeration of the left lower lung status post thoracentesis. 2. No new abnormality is detected. Vital Signs Vital Signs Date Time Temp Pulse Resp B/P (MAP) Pulse Ox O2 Delivery O2 Flow Rate FiO2 12/25/18 12:08 96 Nasal Cannula 5.0 12/25/18 10:47 97.5 68 16 139/62 (87) 97.5 I & O Intake and Output 12/25/18 07:00 Intake Total 374 ml Output Total 0 ml Balance 374 ml Intake Oral 150 ml IV Total 224 ml Output Urine Total 0 ml Assessment and Plan 1)acute on chronic respiratory failure - multifactorial with emphysema, COPD, PE , CHF, pleural effusions, atelectasis and non compliance with BP meds - off Bipap, continue neb tx and tx of CHF with medication and dialysis and fluid restriction 2)Elevated troponin- Cardiology consulted. Heart cath 12/24/18 showed stable CAD. Pt has ICD 3)Pulmonary embolism- pt has no history of PE or DVT. Started on Eliquis, switched to Heparin and now back on Eliquis for about 6 weeks. Pulmonary consulted. Initially on Bipap but improved and during dialysis this am her sats dropped and was placed back on Bipap and was transferred to ICU but improved and now back on telemetry. LE U/S and CT abd/pelvis negative for PE source. 4)acute on chronic systolic and diastolic CHF- severe, improved with dialysis, stressed importance of finishing dialysis and of limiting fluids and sodium and taking meds. 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 6)DM2- controlled with diet, pt not taking medications. Now on SSI. HbA1C 5.7 7)Hypothyroidism- TSH currently at goal. Pt continued on levothyroxine 8)ESRD- Renal consulted, dialysis continued 9)HLD- pt continued on Atorvastatin 10mg 10)COPD/ emphysema per CT chest- pt currently only using albuterol at home, continue neb tx 11)PEM- mild 12)Anemia- mild 13) left pleural effusion - thoracentesis done with improvement and without complication 14) PAD with hx of left AKA and right fempop Tristan PENG MD Dec 25, 2018 16:05
[2018-12-25 19:18] VITALS: BP 105/81
[2018-12-25] MEDS: ATORVASTATIN CALCIUM 10 MG TABLET. PO SCH (20:57)
[2018-12-25] MEDS: APIXABAN 5 MG TABLET. PO SCH (20:58)
[2018-12-25] MEDS ORDERED: APIXABAN 5 MG TABLET. PO SCH (21:00)
[2018-12-25 22:55] VITALS: BP 106/59
[2018-12-26 03:33] VITALS: BP 149/95
[2018-12-26] MEDS: LEVOTHYROXINE 150 MCG TABLET PO SCH (06:24)
[2018-12-26 07:00] VITALS: BP 110/52
[2018-12-26] MEDS: METOPROLOL TART IMMED RELEASE 25 MG TABLET. PO SCH (08:50)
[2018-12-26] MEDS: APIXABAN 5 MG TABLET. PO SCH (08:50)
[2018-12-26] MEDS: LACTOBACILLUS RHAMNOSUS GG 1 CAPSULE. PO SCH (08:50)
[2018-12-26] MEDS: LISINOPRIL 5 MG TABLET. PO SCH (08:51)
[2018-12-26] MEDS: ASPIRIN ENTERIC COATED 81 MG TABLET.DR. PO SCH (08:51)
[2018-12-26] MEDS ORDERED: AMOXICILLIN/K CLAV 500/125MG TABLET. PO SCH (09:00)
[2018-12-26] MEDS: ALBUTEROL SULFATE 2.5 MG/3 ML NEBU. NEB SCH ×2 (09:53→11:46)
--- NOTE | 2018-12-26 10:56 | PDOC ---
CARDIO Progress Notes Date and Time Date of Service 12/26/18 Time of Evaluation 1010 Subjective Subjective: No Chest Pain, No shortness of breath, No Palpitations Vitals Vitals Vital Signs Date Time Temp Pulse Resp B/P (MAP) Pulse Ox O2 Delivery O2 Flow Rate FiO2 12/26/18 09:55 93 Nasal Cannula 3.0 12/26/18 08:51 67 110/52 12/26/18 07:00 97.7 18 97.7 Weight Weight [ ] Input and Output Intake and Output Intake and Output 12/26/18 06:59 Intake Total 1240 ml Output Total 900 ml Balance 340 ml Intake Oral 1240 ml Other 900 ml # Bowel Movements 2 Microbiology Micro Microbiology 12/23/18 Blood Culture - Preliminary, Resulted NO GROWTH AFTER 2 DAYS Review of Systems Constitutional: yes: weakness, alert, oriented Ears/Nose/Throat: Yes: no symptom reported Pulmonary: Yes dyspnea Cardiovascular: Yes no symptom reported Gastrointestional: Yes: constipation Genitourinary: Yes: no symptom reported Musculoskeletal: Yes: no symptom reported Skin: Yes no symptom reported Psychiatric/Neurological: Yes: no symptom reported Physical Exam HEENT: Neck Supple W Full Motion Chest: Symmetric LUNGS: Clear to Auscultation Heart: S1S2, RRR Abdomen: Soft N/T Extremities: No Edema, Other (Left BKA) Neurology: alert, oriented, follow commands Assessment Assessment 1. Acute respiratory failure; much better post thoracentesis 2. Acute small PE; Eliquis 3. Acute on chronic systolic HF; compensated 5. ICM s/p AICD (Biotronik); LVEF 30% 7. CAD 8. Hypertension; controlled 9. Hyperlipidemia; lipids on goal 10. ESRD on HD Recommendations Convert metoprolol to succinate Fluid off-loading/management via HD as per nephrology Supportive care May discharge from a CV standpoint and f/u in our office as scheduled. MERLYN MULLIGAN APRN Dec 26, 2018 10:56
[2018-12-26 11:00] VITALS: BP 131/37
--- NOTE | 2018-12-26 12:13 | PDOC ---
PULMONARY PROGRESS NOTES Subjective feels better, POST THORACENTESIS off BIPAP Vitals Vital Signs Date Time Temp Pulse Resp B/P (MAP) Pulse Ox O2 Delivery O2 Flow Rate FiO2 12/26/18 11:50 97 Nasal Cannula 3.0 12/26/18 11:00 97.7 64 18 131/37 (68) 97.7 ROS: No Nausea, No Chest Pain, No Abdominal Pain, No Increase Cough General: Alert, Oriented X4, No acute distress Lungs: Other (decrease bases) Cardiovascular: S1, S2 Abdomen: Soft, Non-tender Neuro Exam: Alert Extremities: Other (left BKA) Skin: Warm Labs Laboratory Tests Test 12/24/18 22:00 12/25/18 03:20 12/25/18 09:30 Nasal Screen MRSA (PCR) Negative (Negative) White Blood Count 11.8 x10^3/uL (4.0-11.0) Red Blood Count 2.62 x10^6/uL (3.50-5.40) Hemoglobin 8.1 g/dL (12.0-15.5) Hematocrit 24.9 % (36.0-47.0) Mean Corpuscular Volume 95 fL (79-100) Mean Corpuscular Hemoglobin 31 pg (25-35) Mean Corpuscular Hemoglobin Concent 32 g/dL (31-37) Red Cell Distribution Width 15.9 % (11.5-14.5) Platelet Count 110 x10^3/uL (140-400) Prothrombin Time 16.9 SEC (11.7-14.0) Prothromb Time International Ratio 1.4 (0.8-1.1) Sodium Level 135 mmol/L (136-145) Potassium Level 3.6 mmol/L (3.5-5.1) Chloride Level 95 mmol/L (98-107) Carbon Dioxide Level 27 mmol/L (21-32) Anion Gap 13 (6-14) Blood Urea Nitrogen 47 mg/dL (7-20) Creatinine 5.4 mg/dL (0.6-1.0) Estimated GFR (Cockcroft-Gault) 7.9 Glucose Level 115 mg/dL (70-99) Calcium Level 7.8 mg/dL (8.5-10.1) Body Fluid pH 7.35 Medications Active Scripts Medications Dose Route/Sig Max Daily Dose Days Date Category Lisinopril 40 Mg Tablet 20 Mg PO DAILY 30 07/23/18 Rx Levothyroxine Sodium 150 Mcg Tablet 150 Mcg PO DAILYAC 08/21/17 Reported Albuterol Sulfate Neb Soln (Albuterol Sulfate) 2.5 Mg/3 Ml Vial.neb 2.5 Mg NEB RTQID 08/26/15 Rx Novolog Flexpen (Insulin Aspart) 100 Unit/1 Ml Insuln.pen 5 Unit SQ TIDWMEALS 08/21/[address] chest c/w CHF/ Effusions CATH Conclusion 1. Elevated left sided filling pressures. (LVEDP 22 mm Hg) 2. Three vessel coronary disease. 3. No significant change compared to prior angiogram 4. Known severe PAD. Recommendations 1. Continue aggressive medical therapy 2. Plan for thoracentesis tomorrow per pulmonary team 3. Continue fluid removal with HD. Impression . IMPRESSION: 1. Acute on chronic hypoxemic hypercapnic respiratory failure due to CHF ( EF 25%/ ?Severe ) 2. Pulmonary embolism. SMALL RUL, less likely of clinical significance 3. Bilateral pleural effusion.s/p Left tap, likely transudate 4. Bilateral atelectasis. 5. Nausea and vomiting. 6. Possible aspiration. 7. Hypertension. 8. End-stage renal disease. 9. ANXIETY 10. COPD Plan . DOUBT PE IS MAJOR CONCERN. IT IS VERY SMALL ON ELIQUIS . WILL NEED 8-12 WEEKS OF AC REPEAT CTA CHEST IN 6 WEEKS/ CAN BE DONE BY PCP BIPAP PRN CATH REVIEWED HD WITH UF CXR POST TAP BETTER ON LEFT SIDE NEBS 02 D/W RN/OK WITH DC HOME ANGY FONTANEZ MD Dec 26, 2018 12:13
[2018-12-26] MEDS ORDERED: LISI-338 PO (13:03)
[2018-12-26] MEDS ORDERED: APIX5TAB PO (13:03)
[2018-12-26] MEDS ORDERED: METO-239 PO (13:03)
[2018-12-26] MEDS ORDERED: ATOR10TA60 PO (13:03)
[2018-12-26] MEDS ORDERED: AMOX1TAB10 PO (13:03)
--- NOTE | 2018-12-26 13:03 | PDOC3 ---
Discharge Summary [facility] Date of Admission: Dec 22, 2018 Discharge Date: Dec 26, 2018 Admitting Diagnosis acute respiratory failure Final Diagnosis acute respiratory failure, acute diastolic heart failure CONSULTS Pulm, cardiology, renal Procedures thoracentesis, hemodialysis, left heart cath Brief Hospital Course Ms. Hercules is a 68 old who presented with: 1)acute on chronic respiratory failure - multifactorial with emphysema, COPD, PE , CHF, pleural effusions, atelectasis and non compliance with BP meds - needed Bipap, continued neb tx and tx of CHF with medication and dialysis and fluid restriction 2)Elevated troponin- Cardiology consulted. Heart cath 12/24/18 showed stable CAD. Pt has ICD 3)Pulmonary embolism- pt has no history of PE or DVT. Started on Eliquis, switched to Heparin and now back on Eliquis for about 6 - 12 weeks. Pulmonary consulted. Initially on Bipap but improved but during dialysis 12/23/18 her sats dropped and was placed back on Bipap and was transferred to ICU but improved and now back on telemetry. LE U/S and CT abd/pelvis negative for PE source. 4)acute on chronic systolic and diastolic CHF- severe, improved with dialysis, stressed importance of finishing dialysis and of limiting fluids and sodium and taking meds. 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 6)DM2- controlled with diet, pt not taking medications. Now on SSI. HbA1C 5.7 7)Hypothyroidism- TSH currently at goal. Pt continued on levothyroxine 8)ESRD- Renal consulted, dialysis continued 9)HLD- pt continued on Atorvastatin 10mg 10)COPD/ emphysema per CT chest- pt currently only using albuterol at home, continue neb tx 11)PEM- mild 12)Anemia- mild 13) left pleural effusion - thoracentesis done with improvement and without complication 14) PAD with hx of left AKA and right fempop Patient History: FH: COPD (chronic obstructive pulmonary disease) G8 BROTHER 32 MOTHER FH: back pain 33 FATHER G8 SISTER FH: cancer Family history: Cardiovascular disease (situation) G8 BROTHER Family history: Diabetes mellitus (situation) G8 BROTHER 32 MOTHER Disposition home CONDITION AT DISCHARGE: Improved, Stable Diet renal, lo salt, cardiac, diabetic Scheduled Albuterol Sulfate (Albuterol Sulfate Neb Soln), 2.5 MG NEB RTQID Amoxicillin/Potassium Clav (Amox Tr-K Clv 500-125 Mg Tab), 1 TAB PO BID Apixaban (Eliquis), 5 MG PO BID Atorvastatin Calcium (Atorvastatin Calcium), 10 MG PO QHS Insulin Aspart (Novolog Flexpen), 5 UNIT SQ TIDWMEALS, (Reported) Levothyroxine Sodium (Levothyroxine Sodium), 150 MCG PO DAILYAC, (Reported) Lisinopril (Lisinopril), 2.5 MG PO DAILY Metoprolol Succinate (Metoprolol Succinate ( Xl )), 25 MG PO DAILY Discontinued Medications Lisinopril (Lisinopril), 20 MG PO DAILY Follow Up 1-2 weeks Tristan PENG MD Dec 26, 2018 13:03
[2018-12-27] MEDS ORDERED: METOPROLOL SUCC 24HR ER 25 MG TAB.ER.24H. PO SCH (09:00)
[2018-12-29] MEDS ORDERED: APIXABAN 5 MG TABLET. PO SCH (09:00)
--- NOTE | 2018-12-31 15:06 | PATHOLOGY ---
Note [facility] Accession Number: [id number] TESTS RESULT FLAG UNITS REF RANGE LAB Clinician Provided Cytology Information No. of containers..01 Other (Miscellaneous) Source: LEFT PLEURAL FLUID DIAGNOSIS: LEFT PLEURAL FLUID NEGATIVE FOR MALIGNANT CELLS. FOCALLY REACTIVE MESOTHELIAL CELLS AND FEW INFLAMMATORY CELLS PRESENT. THIS INTERPRETATION INCLUDES EVALUATION OF A CELL BLOCK. Signed out by: 02 Rad Crawford MD, Pathologist NPI- [id number] Performed by: Vear Pascual, Childcare Director ([facility]) Gross description: 01 33ML, YELLOW, CLOUDY /LCS FLAG LEGEND: L-Low Normal,H-High Normal,LL-Alert Low,HH-Alert High <-Panic Low,>-Panic High,A-Abnormal,AA-Critical Abnormal Performed at: [facility] [address] [place] [address] Juan Jose Smith MD, 02 [facility] [address] [place] [address] Rad Crawford MD, Specimen Comment: A courtesy copy of this report has been sent to Specimen Comment: [phone], , . Specimen Comment: Report sent to ,DR AMOR / DR PENG Specimen Comment: A duplicate report has been generated due to demographic updates. Performed at: 01 [facility] [address], [place], [place] [id number] MD Juan Jose Smith MD Phone: [phone]
--- NOTE | 2019-01-01 21:27 | PDOC ---
Provider Note Provider Note Provider addendum regarding NSTEMI diagnosis. Patient arrived with elevated troponin felt to be type 2 NSTEMI. 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 Chronic CAD. Pt. not referred to cardiac rehab due to class 3/4 symptoms at baseline due to multiple comorbidities. Pt. was given advised to continue asa at discharge (not documented on DC summary ) Final diagnosis: Type 2 NSTEMI. LAURA RIVERA MD Jan 01, 2019 21:27
== END 2018-12-26 14:06 | disposition home or self-care (01) | DRG 280 ==
LOC: ER 07:25 → 5 NORTH 09:46 → 2 NORTH 19:33 → 1 WEST ICU 12-23 12:22 → 2 SOUTH 12-24 22:00
PROVIDERS: ADMIT Family Medicine; ATTEND Family Medicine
PROC: 5A09357 Assistance with Respiratory Ventilation, Less than 24 Consecutive Hours, Continuous Positive Airway Pressure (ICD-10-PCS; 2018-12-22)
PROC: 5A1D70Z Performance of Urinary Filtration, Intermittent, Less than 6 Hours Per Day (ICD-10-PCS; 2018-12-22)
PROC: 5A09357 Assistance with Respiratory Ventilation, Less than 24 Consecutive Hours, Continuous Positive Airway Pressure (ICD-10-PCS; 2018-12-23)
PROC: 5A1D70Z Performance of Urinary Filtration, Intermittent, Less than 6 Hours Per Day (ICD-10-PCS; 2018-12-23)
PROC: 4A023N7 Measurement of Cardiac Sampling and Pressure, Left Heart, Percutaneous Approach (ICD-10-PCS; principal; 2018-12-24)
PROC: B2111ZZ Fluoroscopy of Multiple Coronary Arteries using Low Osmolar Contrast (ICD-10-PCS; 2018-12-24)
PROC: 5A09357 Assistance with Respiratory Ventilation, Less than 24 Consecutive Hours, Continuous Positive Airway Pressure (ICD-10-PCS; 2018-12-24)
PROC: B2151ZZ Fluoroscopy of Left Heart using Low Osmolar Contrast (ICD-10-PCS; 2018-12-24)
PROC: 5A1D70Z Performance of Urinary Filtration, Intermittent, Less than 6 Hours Per Day (ICD-10-PCS; 2018-12-25)
PROC: 0W9B3ZZ Drainage of Left Pleural Cavity, Percutaneous Approach (ICD-10-PCS; 2018-12-25)
DX: I13.2 Hypertensive heart and chronic kidney disease with heart failure and with stage 5 chronic kidney disease, or end stage renal disease (principal); I26.99 Other pulmonary embolism without acute cor pulmonale; I21.A1 Myocardial infarction type 2; J96.21 Acute and chronic respiratory failure with hypoxia; N18.6 End stage renal disease; I50.43 Acute on chronic combined systolic (congestive) and diastolic (congestive) heart failure; J96.22 Acute and chronic respiratory failure with hypercapnia; J69.0 Pneumonitis due to inhalation of food and vomit; J98.11 Atelectasis; N25.81 Secondary hyperparathyroidism of renal origin; E44.1 Mild protein-calorie malnutrition; J90 Pleural effusion, not elsewhere classified; D63.1 Anemia in chronic kidney disease; E03.9 Hypothyroidism, unspecified; E11.21 Type 2 diabetes mellitus with diabetic nephropathy; E11.22 Type 2 diabetes mellitus with diabetic chronic kidney disease; E78.5 Hyperlipidemia, unspecified; E87.5 Hyperkalemia; F17.210 Nicotine dependence, cigarettes, uncomplicated; F41.9 Anxiety disorder, unspecified; I25.10 Atherosclerotic heart disease of native coronary artery without angina pectoris; I25.2 Old myocardial infarction; I44.7 Left bundle-branch block, unspecified; J43.9 Emphysema, unspecified; E21.3 Hyperparathyroidism, unspecified; F32.9 Major depressive disorder, single episode, unspecified; M19.90 Unspecified osteoarthritis, unspecified site; K21.9 Gastro-esophageal reflux disease without esophagitis; Z82.49 Family history of ischemic heart disease and other diseases of the circulatory system; Z82.5 Family history of asthma and other chronic lower respiratory diseases; Z83.3 Family history of diabetes mellitus; Z86.74 Personal history of sudden cardiac arrest; Z89.512 Acquired absence of left leg below knee; Z89.612 Acquired absence of left leg above knee; Z90.49 Acquired absence of other specified parts of digestive tract; Z91.14 Patient's other noncompliance with medication regimen; Z91.19 Patient's noncompliance with other medical treatment and regimen; Z95.5 Presence of coronary angioplasty implant and graft; Z95.810 Presence of automatic (implantable) cardiac defibrillator; Z99.2 Dependence on renal dialysis; Z68.36 Body mass index [BMI] 36.0-36.9, adult
CPT/HCPCS: 32555; 36415; 36600; 71045; 71275; 74177; 80048; 80053; 80061; 81001; 82553; 82803; 82805; 82962; 83036; 83605; 83615; 83690; 83735; 83986; 84157; 84443; 84484; 85025; 85027; 85520; 85610; 87040; 87071; 87075; 87641; 88112; 88305; 93005; 93306; 93458; 93970; 94640; 94660; 94760; 96374; 96375; 99152; 99153; C1760; C1769; C1892; J0610; J1644; J1815; J2060; J2250; J2405; J2543; J3010; J3475; J7040; J7042; J7613; J7620; Q9967; 99285-25; C1771

== ENCOUNTER → 2019-01-07 | Outpatient (CLI) | payer BC, OTHER ==
[2018-12-26 11:00] VITALS: BP 131/37
[~2019-01-07] MED LIST changes: +APIX5TAB PO; +LISI-338 PO; +METO-239 PO
--- NOTE | 2019-01-07 15:54 | RAD ---
Chest, 2 views, 01/07/2019: HISTORY: Acute pulmonary embolism Comparison is made to a study from 12/25/2018. A left-sided transvenous pacing device remains in place with 2 leads extending into the right heart. The heart is at the upper limits of normal in size. There is a moderate left basilar opacity suggesting pleural fluid and underlying atelectasis/infiltrate. There appears to have improved since previous study. No significant right pleural effusion is seen. No new pulmonary abnormality is detected. IMPRESSION: Moderate residual left basilar opacity compatible with pleural fluid and underlying atelectasis/infiltrate. Electronically signed by: Catracho Fan MD (01/07/2019 3:51 PM) [facility]
== END | disposition home or self-care (01) ==
LOC: RAD 13:44
PROVIDERS: ATTEND Family Medicine
DX: I26.99 Other pulmonary embolism without acute cor pulmonale (principal)
CPT/HCPCS: 71046

== ENCOUNTER 2019-04-24 08:14 | Outpatient (CLI) | payer BC, OTHER ==
[2019-04-24] VITALS (10 sets, daily range): BP systolic 108–164; BP diastolic 56–75
[~2019-04-24] VITALS: Ht 162.6 cm; Wt 95.3 kg
[~2019-04-24 08:14] MED LIST changes: +LEVO500T59 PO
[2019-04-24 08:54] LABS: BASO # 0.1 x10^3/uL (0.0-0.2); BASO % 1 % (0-3); EOS # 0.3 x10^3/uL (0.0-0.7); EOS % 3 % (0-3); HEMATOCRIT 36.3 % (36.0-47.0); HEMOGLOBIN 12.2 g/dL (12.0-15.5); LYMPH # 1.4 x10^3/uL (1.0-4.8); LYMPH % 18 % (24-48); MEAN CORPUSCULAR HEMOGLOBIN 33 pg (25-35); MEAN CORPUSCULAR HGB CONC 34 g/dL (31-37); MEAN CORPUSCULAR VOLUME 99 fL (79-100); MONO # 0.7 x10^3/uL (0.0-1.1); MONO % 9 % (0-9); NEUT # 5.3 x10^3/uL (1.8-7.7); NEUT % 69 % (31-73); PLATELET COUNT 133 x10^3/uL (140-400); RED BLOOD COUNT 3.66 x10^6/uL (3.50-5.40); WHITE BLOOD COUNT 7.7 x10^3/uL (4.0-11.0)
[2019-04-24 09:03] LABS: PROTHROMBIN TIME PATIENT 13.2 SEC (11.7-14.0)
[2019-04-24 09:19] LABS: CALCIUM 8.6 mg/dL (8.5-10.1); CREATININE 4.1 mg/dL (0.6-1.0); GFR 10.9; POTASSIUM 3.6 mmol/L (3.5-5.1)
[2019-04-24] MEDS ORDERED: LIDOCAINE WITH 8.4% SOD BICARB 3 ML DISP.SYRIN. ONE (09:33)
[2019-04-24] MEDS ORDERED: IODIXANOL 320 MG/ML 100 ML VIAL. ONE (09:33)
[2019-04-24] MEDS ORDERED: MIDAZOLAM HCL/PF 2 MG/2 ML VIAL. ONE (09:40)
[2019-04-24] MEDS ORDERED: fentaNYL PF VIAL 100 MCG/2 ML VIAL ONE ×2 (09:41→11:51)
[2019-04-24] MEDS ORDERED: LIDOCAINE WITH 8.4% SOD BICARB 3 ML DISP.SYRIN. IJ ONE (12:00)
[2019-04-24] MEDS ORDERED: IODIXANOL 320 MG/ML 100 ML VIAL. IART ONE (12:00)
[2019-04-24] MEDS ORDERED: MIDAZOLAM HCL/PF 2 MG/2 ML VIAL. IV ONE (12:00)
[2019-04-24] MEDS ORDERED: fentaNYL PF VIAL 100 MCG/2 ML VIAL IV ONE (12:00)
[2019-04-24] MEDS ORDERED: IOHEXOL 240 MG/ML 50ML VIAL. IV ONE (14:00)
[2019-04-24] MEDS ORDERED: LIDOCAINE 1%/EPI 1:100,000 20 ML VIAL. IJ ONE (14:15)
--- NOTE | 2019-04-24 14:38 | NUR ---
Patient restless and not following directions during recovery to leave right leg straight and flat. Patient curled up in position, educated multiple times the need to lay flat on back and right leg straight. Dr. Bray notified Dr. Atkinson of results of procedure, requested patient to have CTA ABD/Pelvis with runoff. Patient refused to have CTA done while here today, also refused staff to have appt set with Dr. Atkinson; Patient stated she will make her own appt.
--- NOTE | 2019-04-24 14:45 | NUR ---
Discharge Note: ANABELLE COFFMAN Discharge instructions and discharge home medications reviewed with Patient and a copy given. All questions have been answered and understanding verbalized. The following instructions and handouts were given: Moderate sedation, groin site care and AV Fistula care. Discontinued lines and drains: PIV righ hand, dressing clean dry intact. Patient discharged to home with via wheelchair to private vehicle.
--- NOTE | 2019-04-28 16:38 | RAD ---
April 24, 2019 1. Left upper extremity fistulogram 2. Brachiocephalic venogram from the right common femoral vein access Indication: Malfunctioning left upper extremity AV fistula Discussion: Patient is a 68-year-old female with a poorly functioning left upper extremity AV fistula. Patient also has a left subclavian dual-lead ICD CAD device. The procedure was explained in its entirety to the patient or the patients designated credit and collections representative by a member of the treatment team, including a discussion of the risks, benefits and commonly accepted alternatives to the procedure, as well as the expected consequences of no therapy whatsoever. Discussion of the risks included, but was not limited to, those that are most frequent and those that are rare but possibly severe or life-threatening, as well as the possibility of unforeseen complications. All elements of maximal sterile barrier technique including the use of a cap, mask, sterile gown, sterile gloves, large sterile sheet, appropriate hand hygiene, and 2% chlorhexidine for cutaneous antisepsis (or acceptable alternative antiseptic per current guidelines) were followed for this procedure. Ultrasound evaluation demonstrates the left upper extremity fistula be grossly patent. The fistula was accessed under direct ultrasound guidance using micropuncture technique. Reference ultrasound images were saved the medical record. A 5 Sami sheath was placed. Venograms were obtained demonstrating patency of the main outflow vein.. A bifurcation occurs in the cephalic vein has enters the axillary vein. There is an occlusion of the left subclavian vein, beneath the clavicle, which appears to be the pacemaker wire entry site. Despite multiple attempts with various catheters wires could not be traversed. The right groin was prepped in identical fashion. Access to the right common femoral vein was obtained in identical fashion. The right common femoral vein is found to be patent by ultrasound. Reference images were saved in the record. 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 History of left-sided femoropopliteal bypass noted. Central venograms involving the left brachycephalic vein and left subclavian vein were performed. The occlusion was redemonstrated, but despite retrograde access, the lesion again could not be traversed. Venograms of the right internal jugular vein, right subclavian and axillary veins, and right brachiocephalic vein demonstrate no high-grade stenosis. Wires and catheters were removed. Manual pressure was held in the right groin. A pursestring suture was applied in the left fistula. Sterile dressings were applied. Total fluoroscopy time: 36.6 minutes Dose area product 142 Gycm2 Sedation The procedure was performed under conscious sedation, including continuous cardiopulmonary monitoring via a dedicated sedation nurse. Face to face sedation time : 120 minutes Impression: 1.Occlusion of the left subclavian vein beneath the clavicle, at the site of pacemaker/ICD wire insertion. This could not be traversed from a retrograde or antegrade approach. 2. Patency of the right internal jugular vein, right subclavian vein, right brachiocephalic vein 3. 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 4. Findings were discussed with vascular surgery during the procedure. Follow-up appointment was scheduled.
== END 2019-04-24 14:45 | disposition home or self-care (01) ==
LOC: INTRAD 08:14
PROVIDERS: ATTEND Internal Medicine Nephrology
DX: T82.590A Other mechanical complication of surgically created arteriovenous fistula, initial encounter (principal); E11.22 Type 2 diabetes mellitus with diabetic chronic kidney disease; I12.0 Hypertensive chronic kidney disease with stage 5 chronic kidney disease or end stage renal disease; N18.6 End stage renal disease; Z79.01 Long term (current) use of anticoagulants; Z79.84 Long term (current) use of oral hypoglycemic drugs; Y83.8 Other surgical procedures as the cause of abnormal reaction of the patient, or of later complication, without mention of misadventure at the time of the procedure; Y92.89 Other specified places as the place of occurrence of the external cause
CPT/HCPCS: 36011; 36415; 36901; 76937; 80048; 85025; 85610; 85730; A4215; C1713; C1769; C1892; C1894; J1644; J2250; J3010; J3490; Q9966; Q9967; 99152; 99153

== ENCOUNTER 2019-06-09 12:34 | Inpatient (IN) | payer BC, OTHER ==
[~2019-06-09] VITALS: Ht 165.1 cm; Wt 100.7 kg
[~2019-06-09 12:34] MED LIST changes: -LINE600T PO; +LINE600T37 PO
[2019-06-09] MEDS ORDERED: IPRATRPIUM/ALBUTEROL 0.5/2.5MG 3 ML NEBU. NEB ONE (13:15)
[2019-06-09] MEDS ORDERED: methylPREDNISolone SOD SUCC PF 125 MG/2 ML VIAL. IV ONE (13:15)
--- NOTE | 2019-06-09 13:38 | RAD ---
EXAM: AP View of the chest DATE: 06/09/2019 12:48 PM INDICATION: Shortness of breath COMPARISON: 10/09/2018, 01/07/2019 FINDINGS: Cardiac generator pack obscures a portion left chest with leads in stable position. Stable cardiomegaly. Atherosclerotic calcifications of the tortuous aorta are seen. Left lung base airspace opacities are seen. Small bilateral pleural effusions. Interstitial prominence is seen. No definite pneumothorax. IMPRESSION: Cardiomegaly with bilateral pleural effusions and associated interstitial prominence is suspicious for interstitial pulmonary edema. Electronically signed by: Will Cano MD (06/09/2019 1:35 PM) [facility]
[2019-06-09 13:39] LABS: BASO % 0 % (0-3); EOS # 0.1 x10^3/uL (0.0-0.7); EOS % 1 % (0-3); HEMATOCRIT 33.9 % (36.0-47.0); HEMOGLOBIN 11.1 g/dL (12.0-15.5); LYMPH # 0.8 x10^3/uL (1.0-4.8); LYMPH % 7 % (24-48); MEAN CORPUSCULAR HEMOGLOBIN 34 pg (25-35); MEAN CORPUSCULAR HGB CONC 33 g/dL (31-37); MEAN CORPUSCULAR VOLUME 103 fL (79-100); MONO # 0.6 x10^3/uL (0.0-1.1); MONO % 5 % (0-9); NEUT # 10.4 x10^3/uL (1.8-7.7); NEUT % 87 % (31-73); PLATELET COUNT 58 x10^3/uL (140-400); RED CELL DISTRIBUTION WIDTH 15.7 % (11.5-14.5)
--- NOTE | 2019-06-09 13:41 | EKG ---
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
[2019-06-09 13:52] LABS: CALCIUM 8.6 mg/dL (8.5-10.1); CREATININE 4.1 mg/dL (0.6-1.0); GFR 10.9; POTASSIUM 3.4 mmol/L (3.5-5.1)
[2019-06-09 14:07] LABS: ALBUMIN 3.4 g/dL (3.4-5.0); ALBUMIN/GLOBULIN RATIO 0.7 (1.0-1.7); TOTAL BILIRUBIN 0.8 mg/dL (0.2-1.0)
--- NOTE | 2019-06-09 14:37 | PHYS DOC ---
Past Medical History Past Medical History: CAD, CHF, COPD, Diabetes-Type II, Renal Failure, Vascular Disease Additional Past Medical Histor: CARDIAC ARREST Past Surgical History: Cholecystectomy, , Pacemaker, Tubal ligation Additional Past Surgical Histo: AICD, VASCULAR STENTS, CARDIAC STENTS, CADAVER ARTERY, LEFT BKA Alcohol Use: None Drug Use: None Adult General Chief Complaint Chief Complaint: DYSPNEA/RESPIRATOY DISTRESS HPI HPI Patient is a 68 year old female patient with history of chronic renal failure on dialysis and COPD on 3 L of home oxygen and currently a smoker who presents via EMS with shortness of breath. Patient complaining of intermittent episodes of shortness of breath for the last 3 or 4 days that gradually getting worse and increased with supine position with dry cough without chest pain. She denies fever and chills, vomiting and diarrhea, sick contact. Patient states she had diagnoses 3 days ago and today felt dizziness and nausea for she was on dialysis and he had to stop dialysis longterm down and calling 911. Review of Systems Review of Systems Constitutional: Denies fever or chills [] Eyes: Denies change in visual acuity, redness, or eye pain [] HENT: Denies nasal congestion or sore throat [] Respiratory: Reports cough and shortness of breath Cardiovascular: No additional information not addressed in HPI [] GI: Denies abdominal pain, vomiting, bloody stools or diarrhea [] : Denies dysuria or hematuria [] Musculoskeletal: Denies back pain or joint pain [] Integument: Denies rash or skin lesions [] Neurologic: Denies headache, focal weakness or sensory changes [] Endocrine: Denies polyuria or polydipsia [] All other systems were reviewed and found to be within normal limits, except as documented in this note. Current Medications Current Medications Current Medications Medications (Trade) Dose Ordered Sig/Slick Start Time Stop Time Status Last Admin Dose Admin Albuterol/ Ipratropium (Duoneb) 3 ml 1X ONCE 06/09/19 13:15 06/09/19 13:18 DC 06/09/19 12:59 3 ML Ceftriaxone Sodium (Rocephin) 1 gm 1X ONCE 06/09/19 14:45 06/09/19 14:46 Methylprednisolone Sodium Succinate (SOLU-Medrol 125MG VIAL) 125 mg 1X ONCE 06/09/19 13:15 06/09/19 13:18 DC 06/09/19 14:02 125 MG Allergies Allergies Allergies Coded Allergies Type Severity Reaction Last Updated Verified I S O L A T I O N *CONTACT* Allergy Unknown 07/22/18 Yes No Known Medication Allergies Allergy Unknown 07/23/18 Yes Physical Exam Physical Exam Constitutional: Well developed, well nourished, mild distress, non-toxic appearance. [] HENT: Normocephalic, atraumatic. Eyes: PERRLA, EOMI, conjunctiva normal, no discharge. [] Neck: Normal range of motion, no tenderness, supple, no stridor. [] Cardiovascular:Heart rate regular rhythm, no murmur [] Lungs & Thorax: Mild respiratory distress with intercostal refraction and hyperventilation, but basilar rales Abdomen: Bowel sounds normal, soft, no tenderness, no masses, no pulsatile masses. [] Skin: Warm, dry, no erythema, no rash. [] Back: No tenderness, no CVA tenderness. [] Extremities: Below knee amputation Neurologic: Alert and oriented X 3, no focal deficits noted. [] Psychologic: Affect normal, judgement normal, mood normal. [] Current Patient Data Vital Signs Vital Signs Date Time Temp Pulse Resp B/P (MAP) Pulse Ox O2 Delivery O2 Flow Rate FiO2 06/09/19 13:01 98 Nasal Cannula 5.0 06/09/19 12:40 97.8 90 20 136/82 (100) 97.8 Lab Values Laboratory Tests Test 06/09/19 13:30 White Blood Count 12.0 x10^3/uL (4.0-11.0) H Red Blood Count 3.30 x10^6/uL (3.50-5.40) L Hemoglobin 11.1 g/dL (12.0-15.5) L Hematocrit 33.9 % (36.0-47.0) L Mean Corpuscular Volume 103 fL (79-100) H Mean Corpuscular Hemoglobin 34 pg (25-35) Mean Corpuscular Hemoglobin Concent 33 g/dL (31-37) Red Cell Distribution Width 15.7 % (11.5-14.5) H Platelet Count 58 x10^3/uL (140-400) L Neutrophils (%) (Auto) 87 % (31-73) H Lymphocytes (%) (Auto) 7 % (24-48) L Monocytes (%) (Auto) 5 % (0-9) Eosinophils (%) (Auto) 1 % (0-3) Basophils (%) (Auto) 0 % (0-3) Neutrophils # (Auto) 10.4 x10^3/uL (1.8-7.7) H Lymphocytes # (Auto) 0.8 x10^3/uL (1.0-4.8) L Monocytes # (Auto) 0.6 x10^3/uL (0.0-1.1) Eosinophils # (Auto) 0.1 x10^3/uL (0.0-0.7) Basophils # (Auto) 0.0 x10^3/uL (0.0-0.2) Platelet Estimate Pending Sodium Level 139 mmol/L (136-145) Potassium Level 3.4 mmol/L (3.5-5.1) L Chloride Level 100 mmol/L (98-107) Carbon Dioxide Level 29 mmol/L (21-32) Anion Gap 10 (6-14) Blood Urea Nitrogen 41 mg/dL (7-20) H Creatinine 4.1 mg/dL (0.6-1.0) H Estimated GFR (Cockcroft-Gault) 10.9 BUN/Creatinine Ratio 10 (6-20) Glucose Level 126 mg/dL (70-99) H Lactic Acid Level 1.4 mmol/L (0.4-2.0) Calcium Level 8.6 mg/dL (8.5-10.1) Magnesium Level 2.0 mg/dL (1.8-2.4) Total Bilirubin 0.8 mg/dL (0.2-1.0) Aspartate Amino Transferase (AST) 17 U/L (15-37) Alanine Aminotransferase (ALT) 9 U/L (14-59) L Alkaline Phosphatase 79 U/L (46-116) Creatine Kinase 34 U/L (26-192) Troponin I Quantitative 0.059 ng/mL (0.000-0.055) YW-Eep-P-Type Natriuretic Peptide > 09411 pg/mL (0-124) H Total Protein 8.0 g/dL (6.4-8.2) Albumin 3.4 g/dL (3.4-5.0) Albumin/Globulin Ratio 0.7 (1.0-1.7) L Laboratory Tests 9/16/19 13:30 Laboratory Tests 06/09/19 13:30 EKG EKG EKG interpreted by me. EKG at 1244 showed sinus rhythm at rate of 95, left axis deviation, nonspecific intraventricular block, Q waves in anteroseptal leads, no acute ST and T-wave elevation. Unchanged EKG from EKG dated 03/09/2019 Radiology/Procedures Radiology/Procedures [][facility] [address] [place] [address] IMAGING REPORT Signed PATIENT: ANABELLE COFFMAN ACCOUNT: [id number] : 1950 LOCATION: ER AGE: 68 SEX: F EXAM STATUS: REG ER ORD. PHYSICIAN: SRINIVAS STYLES MD REASON: shortness of breath PROCEDURE: PORTABLE CHEST 1V EXAM: AP View of the chest DATE: 06/09/2019 12:48 PM INDICATION: Shortness of breath COMPARISON: 10/09/2018, 01/07/2019 FINDINGS: Cardiac generator pack obscures a portion left chest with leads in stable position. Stable cardiomegaly. Atherosclerotic calcifications of the tortuous aorta are seen. Left lung base airspace opacities are seen. Small bilateral pleural effusions. Interstitial prominence is seen. No definite pneumothorax. IMPRESSION: Cardiomegaly with bilateral pleural effusions and associated interstitial prominence is suspicious for interstitial pulmonary edema. Electronically signed by: Will Lozoya MD (06/09/2019 1:35 PM) [facility] DICTATED and SIGNED BY: WILL LOZOYA MD DATE: 06/09/19 3423 Course & Med Decision Making Course & Med Decision Making Pertinent Labs and Imaging studies reviewed. (See chart for details) Evaluation of patient in ER showed 68-year-old female patient with history of CO PD on home oxygen and CHF on dialysis brought in by EMS because of increasing shortness of breath and respiratory systems. Patient had respiratory distress that improved his feet nebulizer treatment and Solu-Medrol. Chest x-ray showed pulmonary edema. Plan to admit the patient and having dialysis for improvement of pulmonary edema. Rocephin for COPD exacerbation was started. Patient requiring admission for further evaluation and treatment. Discussed with Dr. Hernandez who is in agreement with admission. Discussed findings and plan with patient and family, who acknowledge understanding and agreement. Dragon Disclaimer Dragon Disclaimer This electronic medical record was generated, in whole or in part, using a voice recognition dictation system. Departure Departure Impression: Primary Impression: Acute respiratory distress Additional Impressions: Pulmonary edema Acute on chronic systolic CHF (congestive heart failure) Elevated troponin I level COPD exacerbation Anemia Hypokalemia Tobacco abuse Tobacco abuse counseling History of left below knee amputation Hypoxia Disposition: ADMITTED INPATIENT (at 1436) Admitting Physician: Levar Hernandez (accepted admission at 1430) Condition: IMPROVED Referrals: Tristan HERNANDEZ MD (PCP) Problem Qualifiers Additional Impressions: Pulmonary edema Chronicity: acute Qualified Codes: J81.0 - Acute pulmonary edema Anemia Anemia type: unspecified type Qualified Codes: D64.9 - Anemia, unspecified SRINIVAS STYLES MD Jun 09, 2019 14:37
[2019-06-09] MEDS ORDERED: cefTRIAXone IV Push 1 GM VIAL. IVP ONE (14:45)
[2019-06-09 14:57] LABS: % EOS 1 % (0-5); % LYMPHS 9 % (24-48); % MONOS 2 % (0-10); % SEGS 88 % (35-66)
[2019-06-09 14:58] LABS: PLT ESTIMATE DECREASED (ADEQUATE)
[2019-06-09 18:00] VITALS: BP 139/62
[2019-06-09 19:04] VITALS: BP 147/68
[2019-06-09] MEDS: ALBUTEROL SULFATE 2.5 MG/3 ML NEBU. NEB SCH (19:29)
[2019-06-09] MEDS: ATORVASTATIN CALCIUM 10 MG TABLET. PO SCH (20:10)
[2019-06-09] MEDS: APIXABAN 5 MG TABLET. PO SCH (20:10)
[2019-06-09 23:05] VITALS: BP 155/70
[2019-06-10 03:54] VITALS: BP 146/55
[2019-06-10 07:00] VITALS: BP 147/58
[2019-06-10] MEDS: ALBUTEROL SULFATE 2.5 MG/3 ML NEBU. NEB SCH ×4 (07:17→19:53)
[2019-06-10] MEDS: LEVOTHYROXINE 150 MCG TABLET PO SCH (07:53)
--- NOTE | 2019-06-10 09:56 | NUR ---
IP: Pt has a recent hx of + mrsa screen on 03/11/19. Current screen is pending. Pt to be in contact precautions. Continue Nozin/CHG decolonization.
--- NOTE | 2019-06-10 10:04 | PDOC2 ---
CONSULT Date of Consult Date of Consult DATE: 06/10/19 TIME: 09:56 Reason for Consult Reason for Consult: ESRD Identification/Chief Complaint Chief Complaint No complaints- states my breathing is fine, I want to go home Source Source: Chart review, Patient History of Present Illness Reason for Visit: Patient is a 68 year old C female patient with ESRD on dialysis MWF and COPD on 3 L of home oxygen and currently a smoker who presents via EMS with shortness of breath. Patient complaining of intermittent episodes of shortness of breath for the last 3 or 4 days that gradually getting worse and increased with supine position with dry cough without chest pain. She denies fever and chills, vomiting and diarrhea, sick contact. Patient states she had diagnoses 3 days ago and felt dizziness and nausea on dialysis and had to stop dialysis senior living yesterday and was sent to ER . Pt states she ran for 07/26 yesterday and removed 1-1.2 lts - over the weekend she gained only 2.2 lts. She states she is feeling fine, No CP or SOB. On baseline Home O2 by SD. She wants to go home and states she will go back to her Dialysis unit tomorrow - per he schedule She doesn't want to do Dialysis today Past Medical History Cardiovascular: CAD, CHF, HTN, MT, Hyperlipidemia Pulmonary: Asthma, COPD, Pulmonary embolus GI: GERD Heme/Onc: Anemia NOS Hepatobiliary: No pertinent hx Psych: Depression Rheumatologic: No pertinent hx Infectious disease: No pertinent hx Renal/: Chronic renal insuff, Chronic renal failure Endocrine: Diabetes, Hypothyroidism, Hyperparathyroidism Past Surgical History Past Surgical History: Cholecystectomy, , Other Family History Family History: Cancer, Chronic Bronchitis, Diabetes, Hypertension Social History ALCOHOL: none Drugs: None Lives: with Family Current Problem List Problem List Problems Medical Problems: (1) Acute respiratory distress Status: Acute (2) Anemia Status: Acute (3) Elevated troponin I level Status: Acute (4) History of left below knee amputation Status: Acute (5) Hypokalemia Status: Acute (6) Hypoxia Status: Acute (7) Pulmonary edema Status: Acute (8) Tobacco abuse Status: Acute (9) Tobacco abuse counseling Status: Acute Current Medications Current Medications Current Medications Albuterol/ Ipratropium (Duoneb) 3 ml 1X ONCE NEB Last administered on 06/09/19at 12:59; Start 06/09/19 at 13:15; Stop 06/09/19 at 13:18; Status DC Methylprednisolone Sodium Succinate (SOLU-Medrol 125MG VIAL) 125 mg 1X ONCE IV Last administered on 06/09/19at 14:02; Start 06/09/19 at 13:15; Stop 06/09/19 at 13:18; Status DC Ceftriaxone Sodium (Rocephin) 1 gm 1X ONCE IVP Last administered on 06/09/19at 17:10; Start 06/09/19 at 14:45; Stop 06/09/19 at 14:46; Status DC Albuterol Sulfate (Ventolin Neb Soln) 2.5 mg RTQID NEB Last administered on 06/10/19at 07:17; Start 06/09/19 at 20:00 Apixaban (Eliquis) 5 mg BID PO Last administered on 06/09/19at 20:10; Start 06/09/19 at 21:00 Atorvastatin Calcium (Lipitor) 10 mg QHS PO Last administered on 06/09/19at 20:10; Start 06/09/19 at 21:00 Levothyroxine Sodium (Synthroid) 175 mcg DAILYAC PO Last administered on 06/10/19at 07:53; Start 06/10/19 at 07:30 Lisinopril (Prinivil) 2.5 mg DAILY PO ; Start 06/10/19 at 09:00 Metoprolol Succinate (Toprol Xl) 25 mg DAILY PO ; Start 06/10/19 at 09:00 Active Scripts Active Lisinopril 5 Mg Tablet 2.5 Mg PO DAILY 90 Days Metoprolol Succinate ( Xl ) (Metoprolol Succinate) 25 Mg Tab.er.24h 25 Mg PO DAILY 90 Days Atorvastatin Calcium 10 Mg Tablet 10 Mg PO QHS 30 Days Eliquis (Apixaban) 5 Mg Tablet 5 Mg PO BID 30 Days Albuterol Sulfate Neb Soln (Albuterol Sulfate) 2.5 Mg/3 Ml Vial.neb 2.5 Mg NEB RTQID Reported Levothyroxine Sodium 150 Mcg Tablet 175 Mcg PO DAILYAC Allergies Allergies: Coded Allergies: I S O L A T I O N *CONTACT* (Verified Allergy, Unknown, 07/22/18) mrsa No Known Medication Allergies (Verified Allergy, Unknown, 07/23/18) ROS Review of System Per HPI Physical Exam Physical Exam GENERAL : NAD HEENT: om MOIST NECK: Supple LUNGS: decreased at bases , No use of accessory muscle CARDIAC: RRR ABDOMEN: Obese. Nontender. EXTREMITIES: Trace lower extremity edema. NEUROLOGIC: Grossly normal NO Tai Vital Signs Vital Signs Date Time Temp Pulse Resp B/P (MAP) Pulse Ox O2 Delivery O2 Flow Rate FiO2 06/10/19 07:18 92 Nasal Cannula 3.0 06/10/19 07:00 97.5 67 16 147/58 (87) 97.5 Assessment & Plan End-stage renal disease secondary to diabetic nephropathy On HD MWF, incomplete yesterday due to SOB E-Lytes are stable, Clinically stable Pulm status- asymptomatic Reluctant to do HD today, wants to go home and will get HD tomorrow per her schedule Dyspnea chronic obstructive pulmonary disease, smoker Mild congestion reported on CxR , clinically asymptomatic Anemia- mild. stable, No indication for [place] CHF- severe systolic Per cardiology CAD- asymptomatic. DM2-per primary Thrombocytopenia- Platelets dropped Defer to primary Hx of pulmonary embolism- on eliquis 5mg BID Labs Labs Laboratory Tests Test 06/09/19 13:30 06/09/19 16:14 06/09/19 17:40 06/09/19 20:29 White Blood Count 12.0 x10^3/uL (4.0-11.0) Red Blood Count 3.30 x10^6/uL (3.50-5.40) Hemoglobin 11.1 g/dL (12.0-15.5) Hematocrit 33.9 % (36.0-47.0) Mean Corpuscular Volume 103 fL (79-100) Mean Corpuscular Hemoglobin 34 pg (25-35) Mean Corpuscular Hemoglobin Concent 33 g/dL (31-37) Red Cell Distribution Width 15.7 % (11.5-14.5) Platelet Count 58 x10^3/uL (140-400) Neutrophils (%) (Auto) 87 % (31-73) Lymphocytes (%) (Auto) 7 % (24-48) Monocytes (%) (Auto) 5 % (0-9) Eosinophils (%) (Auto) 1 % (0-3) Basophils (%) (Auto) 0 % (0-3) Neutrophils # (Auto) 10.4 x10^3/uL (1.8-7.7) Lymphocytes # (Auto) 0.8 x10^3/uL (1.0-4.8) Monocytes # (Auto) 0.6 x10^3/uL (0.0-1.1) Eosinophils # (Auto) 0.1 x10^3/uL (0.0-0.7) Basophils # (Auto) 0.0 x10^3/uL (0.0-0.2) Segmented Neutrophils % 88 % (35-66) Lymphocytes % 9 % (24-48) Monocytes % 2 % (0-10) Eosinophils % 1 % (0-5) Platelet Estimate Decreased (ADEQUATE) Sodium Level 139 mmol/L (136-145) Potassium Level 3.4 mmol/L (3.5-5.1) Chloride Level 100 mmol/L (98-107) Carbon Dioxide Level 29 mmol/L (21-32) Anion Gap 10 (6-14) Blood Urea Nitrogen 41 mg/dL (7-20) Creatinine 4.1 mg/dL (0.6-1.0) Estimated GFR (Cockcroft-Gault) 10.9 BUN/Creatinine Ratio 10 (6-20) Glucose Level 126 mg/dL (70-99) Lactic Acid Level 1.4 mmol/L (0.4-2.0) Calcium Level 8.6 mg/dL (8.5-10.1) Magnesium Level 2.0 mg/dL (1.8-2.4) Total Bilirubin 0.8 mg/dL (0.2-1.0) Aspartate Amino Transf (AST/SGOT) 17 U/L (15-37) Alanine Aminotransferase (ALT/SGPT) 9 U/L (14-59) Alkaline Phosphatase 79 U/L (46-116) Creatine Kinase 34 U/L (26-192) Troponin I Quantitative 0.059 ng/mL (0.000-0.055) 0.070 ng/mL (0.000-0.055) JP-Ble-N-Type Natriuretic Peptide > 09487 pg/mL (0-124) Total Protein 8.0 g/dL (6.4-8.2) Albumin 3.4 g/dL (3.4-5.0) Albumin/Globulin Ratio 0.7 (1.0-1.7) Glucose (Fingerstick) 133 mg/dL (70-99) 324 mg/dL (70-99) Test 06/09/19 21:30 06/10/19 07:11 Troponin I Quantitative 0.042 ng/mL (0.000-0.055) Glucose (Fingerstick) 180 mg/dL (70-99) Laboratory Tests Test 06/09/19 13:30 06/09/19 16:14 06/09/19 17:40 06/09/19 20:29 White Blood Count 12.0 x10^3/uL (4.0-11.0) Red Blood Count 3.30 x10^6/uL (3.50-5.40) Hemoglobin 11.1 g/dL (12.0-15.5) Hematocrit 33.9 % (36.0-47.0) Mean Corpuscular Volume 103 fL (79-100) Mean Corpuscular Hemoglobin 34 pg (25-35) Mean Corpuscular Hemoglobin Concent 33 g/dL (31-37) Red Cell Distribution Width 15.7 % (11.5-14.5) Platelet Count 58 x10^3/uL (140-400) Neutrophils (%) (Auto) 87 % (31-73) Lymphocytes (%) (Auto) 7 % (24-48) Monocytes (%) (Auto) 5 % (0-9) Eosinophils (%) (Auto) 1 % (0-3) Basophils (%) (Auto) 0 % (0-3) Neutrophils # (Auto) 10.4 x10^3/uL (1.8-7.7) Lymphocytes # (Auto) 0.8 x10^3/uL (1.0-4.8) Monocytes # (Auto) 0.6 x10^3/uL (0.0-1.1) Eosinophils # (Auto) 0.1 x10^3/uL (0.0-0.7) Basophils # (Auto) 0.0 x10^3/uL (0.0-0.2) Segmented Neutrophils % 88 % (35-66) Lymphocytes % 9 % (24-48) Monocytes % 2 % (0-10) Eosinophils % 1 % (0-5) Platelet Estimate Decreased (ADEQUATE) Sodium Level 139 mmol/L (136-145) Potassium Level 3.4 mmol/L (3.5-5.1) Chloride Level 100 mmol/L (98-107) Carbon Dioxide Level 29 mmol/L (21-32) Anion Gap 10 (6-14) Blood Urea Nitrogen 41 mg/dL (7-20) Creatinine 4.1 mg/dL (0.6-1.0) Estimated GFR (Cockcroft-Gault) 10.9 BUN/Creatinine Ratio 10 (6-20) Glucose Level 126 mg/dL (70-99) Lactic Acid Level 1.4 mmol/L (0.4-2.0) Calcium Level 8.6 mg/dL (8.5-10.1) Magnesium Level 2.0 mg/dL (1.8-2.4) Total Bilirubin 0.8 mg/dL (0.2-1.0) Aspartate Amino Transf (AST/SGOT) 17 U/L (15-37) Alanine Aminotransferase (ALT/SGPT) 9 U/L (14-59) Alkaline Phosphatase 79 U/L (46-116) Creatine Kinase 34 U/L (26-192) Troponin I Quantitative 0.059 ng/mL (0.000-0.055) 0.070 ng/mL (0.000-0.055) TA-Eiw-D-Type Natriuretic Peptide > 93191 pg/mL (0-124) Total Protein 8.0 g/dL (6.4-8.2) Albumin 3.4 g/dL (3.4-5.0) Albumin/Globulin Ratio 0.7 (1.0-1.7) Glucose (Fingerstick) 133 mg/dL (70-99) 324 mg/dL (70-99) Test 06/09/19 21:30 06/10/19 07:11 Troponin I Quantitative 0.042 ng/mL (0.000-0.055) Glucose (Fingerstick) 180 mg/dL (70-99) Review All relevant outside records, renal labs, imaging studies, telemetry/EKG's were reviewed. Images Images CxR-- Cardiomegaly with bilateral pleural effusions and associated interstitial prominence is suspicious for interstitial pulmonary edema. JEROME SILVA MD Jun 10, 2019 10:04
[2019-06-10 11:00] VITALS: BP 155/62
[2019-06-10] MEDS: APIXABAN 5 MG TABLET. PO SCH ×2 (11:55→20:10)
[2019-06-10] MEDS: LISINOPRIL 5 MG TABLET. PO SCH (11:56)
[2019-06-10] MEDS: METOPROLOL SUCC 24HR ER 25 MG TAB.ER.24H. PO SCH (11:56)
--- NOTE | 2019-06-10 12:35 | PDOC1 ---
History and Physical Date of Admission Date of Admission 06/09/19 Identification/Chief Complaint Chief Complaint shortness of breath Source Source: Patient History of Present Illness History of Present Illness Diabetic with ESRD went to routine dialysis yesterday and it was cut short due to shortness of breath and she was sent to ER and found to be in heart failure a nd admitted, her initial troponin was elevated but she denies chest pain and feels much better today and wants to go home Past Medical History Cardiovascular: CAD, CHF, HTN, NC, Hyperlipidemia Pulmonary: Asthma, COPD, Pulmonary embolus GI: GERD Heme/Onc: Anemia NOS Hepatobiliary: No pertinent hx Psych: Depression Rheumatologic: No pertinent hx Infectious disease: No pertinent hx Renal/: Chronic renal insuff, Chronic renal failure Endocrine: Diabetes, Hypothyroidism, Hyperparathyroidism Past Surgical History Past Surgical History: Cholecystectomy, , Other Family History Family History: Cancer, Chronic Bronchitis, Diabetes, Hypertension Social History ALCOHOL: none Drugs: None Current Problem List Problem List Problems Medical Problems: (1) Acute respiratory distress Status: Acute (2) Anemia Status: Acute (3) Elevated troponin I level Status: Acute (4) History of left below knee amputation Status: Acute (5) Hypokalemia Status: Acute (6) Hypoxia Status: Acute (7) Pulmonary edema Status: Acute (8) Tobacco abuse Status: Acute (9) Tobacco abuse counseling Status: Acute Current Medications Current Medications Current Medications Medications (Trade) Dose Ordered Sig/Slick Start Time Stop Time Status Last Admin Dose Admin Albuterol Sulfate (Ventolin Neb Soln) 2.5 mg RTQID 06/09/19 20:00 06/10/19 11:08 2.5 MG Albuterol/ Ipratropium (Duoneb) 3 ml 1X ONCE 06/09/19 13:15 06/09/19 13:18 DC 06/09/19 12:59 3 ML Apixaban (Eliquis) 5 mg BID 06/09/19 21:00 06/10/19 11:56 5 MG Atorvastatin Calcium (Lipitor) 10 mg QHS 06/09/19 21:00 06/09/19 20:10 10 MG Ceftriaxone Sodium (Rocephin) 1 gm 1X ONCE 06/09/19 14:45 06/09/19 14:46 DC 06/09/19 17:10 1 GM Levothyroxine Sodium (Synthroid) 175 mcg DAILYAC 06/10/19 07:30 06/10/19 07:53 175 MCG Lisinopril (Prinivil) 2.5 mg DAILY 06/10/19 09:00 06/10/19 11:56 2.5 MG Methylprednisolone Sodium Succinate (SOLU-Medrol 125MG VIAL) 125 mg 1X ONCE 06/09/19 13:15 06/09/19 13:18 DC 06/09/19 14:02 125 MG Metoprolol Succinate (Toprol Xl) 25 mg DAILY 06/10/19 09:00 06/10/19 11:56 25 MG Allergies Allergies Allergies Coded Allergies Type Severity Reaction Last Updated Verified I S O L A T I O N *CONTACT* Allergy Unknown 07/22/18 Yes No Known Medication Allergies Allergy Unknown 07/23/18 Yes ROS Review of System CONSTITUTIONAL: No fever or chills EYES: No recent changes SKIN: No rash or itching CARDIOVASCULAR: No chest pain, syncope, palpitations, or edema RESPIRATORY: + SOB, no cough GASTROINTESTINAL: No nausea, vomiting or abdominal pain NEUROLOGICAL: No headaches or weakness ENDOCRINE: No cold or heat intolerance GENITOURINARY: No urgency or frequency of urination MUSCULOSKELETAL: No back pain or joint pain LYMPHATICS: No enlarged lymph nodes PSYCHIATRIC: No anxiety or depression Physical Exam Physical Exam GEN.: No apparent distress. Alert and oriented. HEENT: Head is normocephalic, atraumatic NECK: Supple. LUNGS: Clear to auscultation. HEART: RRR, S1, S2 present. Peripheral pulses intact ABDOMEN: Soft, nontender. Positive bowel sounds. EXTREMITIES: Without any cyanosis. NEUROLOGIC: Normal speech, normal tone PSYCHIATRIC: Normal affect, normal mood. SKIN: No ulcerations Vitals Vitals Vital Signs Date Time Temp Pulse Resp B/P (MAP) Pulse Ox O2 Delivery O2 Flow Rate FiO2 06/10/19 11:56 75 155/62 06/10/19 11:08 92 Nasal Cannula 3.0 06/10/19 11:00 97.7 16 97.7 Labs Labs Laboratory Tests Test 06/09/19 13:30 06/09/19 16:14 06/09/19 17:40 06/09/19 20:29 White Blood Count 12.0 x10^3/uL (4.0-11.0) Red Blood Count 3.30 x10^6/uL (3.50-5.40) Hemoglobin 11.1 g/dL (12.0-15.5) Hematocrit 33.9 % (36.0-47.0) Mean Corpuscular Volume 103 fL (79-100) Mean Corpuscular Hemoglobin 34 pg (25-35) Mean Corpuscular Hemoglobin Concent 33 g/dL (31-37) Red Cell Distribution Width 15.7 % (11.5-14.5) Platelet Count 58 x10^3/uL (140-400) Neutrophils (%) (Auto) 87 % (31-73) Lymphocytes (%) (Auto) 7 % (24-48) Monocytes (%) (Auto) 5 % (0-9) Eosinophils (%) (Auto) 1 % (0-3) Basophils (%) (Auto) 0 % (0-3) Neutrophils # (Auto) 10.4 x10^3/uL (1.8-7.7) Lymphocytes # (Auto) 0.8 x10^3/uL (1.0-4.8) Monocytes # (Auto) 0.6 x10^3/uL (0.0-1.1) Eosinophils # (Auto) 0.1 x10^3/uL (0.0-0.7) Basophils # (Auto) 0.0 x10^3/uL (0.0-0.2) Segmented Neutrophils % 88 % (35-66) Lymphocytes % 9 % (24-48) Monocytes % 2 % (0-10) Eosinophils % 1 % (0-5) Platelet Estimate Decreased (ADEQUATE) Sodium Level 139 mmol/L (136-145) Potassium Level 3.4 mmol/L (3.5-5.1) Chloride Level 100 mmol/L (98-107) Carbon Dioxide Level 29 mmol/L (21-32) Anion Gap 10 (6-14) Blood Urea Nitrogen 41 mg/dL (7-20) Creatinine 4.1 mg/dL (0.6-1.0) Estimated GFR (Cockcroft-Gault) 10.9 BUN/Creatinine Ratio 10 (6-20) Glucose Level 126 mg/dL (70-99) Lactic Acid Level 1.4 mmol/L (0.4-2.0) Calcium Level 8.6 mg/dL (8.5-10.1) Magnesium Level 2.0 mg/dL (1.8-2.4) Total Bilirubin 0.8 mg/dL (0.2-1.0) Aspartate Amino Transf (AST/SGOT) 17 U/L (15-37) Alanine Aminotransferase (ALT/SGPT) 9 U/L (14-59) Alkaline Phosphatase 79 U/L (46-116) Creatine Kinase 34 U/L (26-192) Troponin I Quantitative 0.059 ng/mL (0.000-0.055) 0.070 ng/mL (0.000-0.055) KG-[id number]-X-Type Natriuretic Peptide > 24298 pg/mL (0-124) Total Protein 8.0 g/dL (6.4-8.2) Albumin 3.4 g/dL (3.4-5.0) Albumin/Globulin Ratio 0.7 (1.0-1.7) Glucose (Fingerstick) 133 mg/dL (70-99) 324 mg/dL (70-99) Test 06/09/19 21:30 06/10/19 07:11 06/10/19 11:22 Troponin I Quantitative 0.042 ng/mL (0.000-0.055) Glucose (Fingerstick) 180 mg/dL (70-99) 247 mg/dL (70-99) Laboratory Tests Test 06/09/19 13:30 06/09/19 16:14 06/09/19 17:40 06/09/19 20:29 White Blood Count 12.0 x10^3/uL (4.0-11.0) Red Blood Count 3.30 x10^6/uL (3.50-5.40) Hemoglobin 11.1 g/dL (12.0-15.5) Hematocrit 33.9 % (36.0-47.0) Mean Corpuscular Volume 103 fL (79-100) Mean Corpuscular Hemoglobin 34 pg (25-35) Mean Corpuscular Hemoglobin Concent 33 g/dL (31-37) Red Cell Distribution Width 15.7 % (11.5-14.5) Platelet Count 58 x10^3/uL (140-400) Neutrophils (%) (Auto) 87 % (31-73) Lymphocytes (%) (Auto) 7 % (24-48) Monocytes (%) (Auto) 5 % (0-9) Eosinophils (%) (Auto) 1 % (0-3) Basophils (%) (Auto) 0 % (0-3) Neutrophils # (Auto) 10.4 x10^3/uL (1.8-7.7) Lymphocytes # (Auto) 0.8 x10^3/uL (1.0-4.8) Monocytes # (Auto) 0.6 x10^3/uL (0.0-1.1) Eosinophils # (Auto) 0.1 x10^3/uL (0.0-0.7) Basophils # (Auto) 0.0 x10^3/uL (0.0-0.2) Segmented Neutrophils % 88 % (35-66) Lymphocytes % 9 % (24-48) Monocytes % 2 % (0-10) Eosinophils % 1 % (0-5) Platelet Estimate Decreased (ADEQUATE) Sodium Level 139 mmol/L (136-145) Potassium Level 3.4 mmol/L (3.5-5.1) Chloride Level 100 mmol/L (98-107) Carbon Dioxide Level 29 mmol/L (21-32) Anion Gap 10 (6-14) Blood Urea Nitrogen 41 mg/dL (7-20) Creatinine 4.1 mg/dL (0.6-1.0) Estimated GFR (Cockcroft-Gault) 10.9 BUN/Creatinine Ratio 10 (6-20) Glucose Level 126 mg/dL (70-99) Lactic Acid Level 1.4 mmol/L (0.4-2.0) Calcium Level 8.6 mg/dL (8.5-10.1) Magnesium Level 2.0 mg/dL (1.8-2.4) Total Bilirubin 0.8 mg/dL (0.2-1.0) Aspartate Amino Transf (AST/SGOT) 17 U/L (15-37) Alanine Aminotransferase (ALT/SGPT) 9 U/L (14-59) Alkaline Phosphatase 79 U/L (46-116) Creatine Kinase 34 U/L (26-192) Troponin I Quantitative 0.059 ng/mL (0.000-0.055) 0.070 ng/mL (0.000-0.055) RQ-Yoz-R-Type Natriuretic Peptide > 37728 pg/mL (0-124) Total Protein 8.0 g/dL (6.4-8.2) Albumin 3.4 g/dL (3.4-5.0) Albumin/Globulin Ratio 0.7 (1.0-1.7) Glucose (Fingerstick) 133 mg/dL (70-99) 324 mg/dL (70-99) Test 06/09/19 21:30 06/10/19 07:11 06/10/19 11:22 Troponin I Quantitative 0.042 ng/mL (0.000-0.055) Glucose (Fingerstick) 180 mg/dL (70-99) 247 mg/dL (70-99) VTE Prophylaxis Ordered VTE Prophylaxis Devices: Yes VTE Pharmacological Prophylaxi: Yes Assessment/Plan Assessment/Plan acute hypoxic respiratory failure - continue O2, f/u CXR, continue dialysis bronchitis - zpack COPD - neb tx acute on chronic diastolic heart failure -dialysis, she still makes urine and had overnight diuresis uncontrolled type 2 diabetes - SSI She wants to go home, if f/u CXR shows resolution of pulm findings then will consider discharge later today Tristan PENG MD Jun 10, 2019 12:35
[2019-06-10] MEDS ORDERED: DEXTROSE 50% 25 GM / 50ML DISP.SYRIN. IV PRN (12:45)
[2019-06-10] MEDS ORDERED: IV DEXTROSE 5% 250 ML BAG. IV PRN (12:45)
[2019-06-10] MEDS: BUDESONIDE 0.5 MG/2 ML NEBU. NEB SCH ×2 (13:00→19:53)
[2019-06-10] MEDS ORDERED: AZITHROMYCIN 250 MG TABLET. PO ONE (13:30)
[2019-06-10 15:00] VITALS: BP 143/57
[2019-06-10] MEDS: INSULIN LISPRO 300 UNITS/3 ML VIAL. SQ SCH (17:00)
--- NOTE | 2019-06-10 17:15 | RAD ---
CHEST AP ONLY History: Congestive heart failure Comparison: June 09, 2019 Findings: Single view of the chest is submitted. Pericardial cardiac silhouette is again enlarged. There is again left electronic cardiac device. There is a similar degree of left base opacity. There are small pleural effusions bilaterally as seen previously. There is again interstitial opacity bilaterally, degree of perihilar opacity slightly increased. No pneumothorax is identified. Impression: 1. There is persistent somewhat increased perihilar opacity likely due to edema, persistent interstitial opacity likely due to interstitial edema. There are again small bilateral pleural effusions. Overall findings may be seen with left ventricular failure. Electronically signed by: Bobby Thomas MD (06/10/2019 5:12 PM) [facility]
[2019-06-10 19:56] VITALS: BP 134/54
[2019-06-10] MEDS: ATORVASTATIN CALCIUM 10 MG TABLET. PO SCH (20:10)
[2019-06-10] MEDS: guaiFENesin DM 600/30MG 1 TAB TAB.ER.12H PO SCH (20:10)
[2019-06-10 23:44] VITALS: BP 135/67
[2019-06-11 03:55] VITALS: BP 127/45
[2019-06-11 07:10] VITALS: BP 118/38
[2019-06-11] MEDS: ALBUTEROL SULFATE 2.5 MG/3 ML NEBU. NEB SCH ×3 (07:23→17:05)
[2019-06-11] MEDS: BUDESONIDE 0.5 MG/2 ML NEBU. NEB SCH (07:23)
[2019-06-11] MEDS: LEVOTHYROXINE 150 MCG TABLET PO SCH (07:30)
[2019-06-11] MEDS: INSULIN LISPRO 300 UNITS/3 ML VIAL. SQ SCH ×3 (08:00→17:00)
[2019-06-11] MEDS: METOPROLOL SUCC 24HR ER 25 MG TAB.ER.24H. PO SCH (09:00)
[2019-06-11] MEDS: APIXABAN 5 MG TABLET. PO SCH (09:00)
[2019-06-11] MEDS: guaiFENesin DM 600/30MG 1 TAB TAB.ER.12H PO SCH (09:00)
[2019-06-11] MEDS: LISINOPRIL 5 MG TABLET. PO SCH (09:00)
[2019-06-11] MEDS ORDERED: AZITHROMYCIN 250 MG TABLET. PO SCH (09:00)
[2019-06-11] MEDS ORDERED: ANTI-COAG MONITOR BY PHARMACY. MC PRN (10:00)
[2019-06-11 11:00] VITALS: BP 126/60
[2019-06-11] MEDS ORDERED: LACTOBACILLUS RHAMNOSUS GG 1 CAPSULE. PO SCH (12:00)
[2019-06-11] MEDS ORDERED: IV NORMAL SALINE 1000ML BAG 1,000 ML IV PRN ×2 (14:03)
--- NOTE | 2019-06-11 14:08 | PDOC ---
SUBJECTIVE ROS Stable OBJECTIVE Vital Signs Vital Signs Date Time Temp Pulse Resp B/P (MAP) Pulse Ox O2 Delivery O2 Flow Rate FiO2 06/11/19 11:41 Nasal Cannula 3.0 06/11/19 11:00 97.5 71 18 126/60 (82) 96 97.5 I & 0 Intake and Output 06/11/19 06:59 Intake Total 780 ml Balance 780 ml Intake Oral 780 ml # Voids 4 PHYSICAL EXAM Physical Exam GENERAL : NAD HEENT: om MOIST NECK: Supple LUNGS: decreased at bases , No use of accessory muscle CARDIAC: RRR ABDOMEN: Obese. Nontender. EXTREMITIES: Trace lower extremity edema. NEUROLOGIC: Grossly normal NO Tai DIAGNOSIS/ASSESSMENT Assessment & Plan End-stage renal disease secondary to diabetic nephropathy On HD MWF, Dialysis today as ordered, [facility] Dyspnea chronic obstructive pulmonary disease, smoker Mild congestion reported on CxR , clinically asymptomatic Anemia- mild. stable, No indication for [place] CHF- severe systolic Per cardiology CAD- asymptomatic. DM2-per primary Thrombocytopenia- Platelets dropped (labs on the day of admission) Defer to primary Hx of pulmonary embolism- on eliquis 5mg BID COMMENT/RELEVANT DATA Meds Current Medications Medications (Trade) Dose Ordered Sig/Slick Start Time Stop Time Status Last Admin Dose Admin Albuterol Sulfate (Ventolin Neb Soln) 2.5 mg RTQID 06/09/19 20:00 06/11/19 11:41 2.5 MG Albuterol/ Ipratropium (Duoneb) 3 ml 1X ONCE 06/09/19 13:15 06/09/19 13:18 DC 06/09/19 12:59 3 ML Apixaban (Eliquis) 5 mg BID 06/09/19 21:00 06/10/19 20:10 5 MG Atorvastatin Calcium (Lipitor) 10 mg QHS 06/09/19 21:00 06/10/19 20:10 10 MG Azithromycin (Zithromax) 250 mg DAILY 06/11/19 09:00 Budesonide (Pulmicort) 0.5 mg RTBID 06/10/19 13:00 06/11/19 07:23 0.5 MG Ceftriaxone Sodium (Rocephin) 1 gm 1X ONCE 06/09/19 14:45 06/09/19 14:46 DC 06/09/19 17:10 1 GM Dextrose 250 ml PRN Q15MIN PRN 06/10/19 12:45 Dextrose (Dextrose 50%-Water Syringe) 12.5 gm PRN Q15MIN PRN 06/10/19 12:45 Guaifenesin (MUCINEX ER with DM) 1 tab BID 06/10/19 21:00 06/10/19 20:10 1 TAB Info (Anti-Coagulation Monitoring By Pharmacy) 1 each PRN DAILY PRN 06/11/19 10:00 06/11/19 09:57 1 EACH Insulin Human Lispro (HumaLOG) 0-7 UNITS TIDWMEALS 06/10/19 17:00 Lactobacillus Rhamnosus (Culturelle) 1 cap BID 06/11/19 12:00 Levothyroxine Sodium (Synthroid) 175 mcg DAILYAC 06/10/19 07:30 06/10/19 07:53 175 MCG Lisinopril (Prinivil) 2.5 mg DAILY 06/10/19 09:00 06/10/19 11:56 2.5 MG Methylprednisolone Sodium Succinate (SOLU-Medrol 125MG VIAL) 125 mg 1X ONCE 06/09/19 13:15 06/09/19 13:18 DC 06/09/19 14:02 125 MG Metoprolol Succinate (Toprol Xl) 25 mg DAILY 06/10/19 09:00 06/10/19 11:56 25 MG Lab Laboratory Tests Test 06/10/19 16:11 06/10/19 20:22 06/11/19 07:26 06/11/19 11:52 Glucose (Fingerstick) 154 mg/dL (70-99) 187 mg/dL (70-99) 143 mg/dL (70-99) 112 mg/dL (70-99) Results All relevant outside records, renal labs, imaging studies, telemetry/EKG's were reviewed. JEROME SILVA MD Jun 11, 2019 14:08
[2019-06-11] MEDS ORDERED: DIALYSIS PATIENT. MC PRN ×2 (14:15)
[2019-06-11 15:11] VITALS: BP 119/47
--- NOTE | 2019-06-11 15:13 | NUR ---
SW following pt for dc planning. Chart reviewed and discussed with RN. Pt has home 02 and OP HD at [facility] on MWF. YAZ phoned/faxed clinicals to [facility] and informed them pt is discharging today after dialysis.
--- NOTE | 2019-06-11 16:13 | PDOC3 ---
Discharge Summary [facility] Date of Admission: Jun 09, 2019 Discharge Date: Jun 11, 2019 Admitting Diagnosis pulmonary edema Final Diagnosis Problems Medical Problems: (1) Acute on chronic diastolic (congestive) heart failure Status: Acute (2) Acute respiratory distress Status: Acute (3) Acute respiratory failure with hypoxia Status: Acute (4) Anemia Status: Acute (5) Bronchitis Status: Acute (6) COPD (chronic obstructive pulmonary disease) Status: Chronic (7) Elevated troponin I level Status: Acute (8) History of left below knee amputation Status: Acute (9) Hypokalemia Status: Acute (10) Hypoxia Status: Acute (11) Pulmonary edema Status: Acute (12) Tobacco abuse Status: Acute (13) Tobacco abuse counseling Status: Acute (14) Uncontrolled diabetes mellitus Status: Chronic CONSULTS renal Procedures dialysis Brief Hospital Course Ms. Hercules is a 68 old who presented with acute respiratory failure with pulmonary edema and acute on chronic diastolic heart failure requiring diuresis and dialysis. She also had a cough and bronchitis and was given IV steroids in ER which caused hyperglycemia but was brought down with insulin. Her CXR yesterday showed ongoing fluid in her lungs so she was kept today to complete dialysis, she was offered extra dialysis yesterday but did not do it. She was started on neb treatments and antibiotics for bronchitis which has resolved Patient History: FH: COPD (chronic obstructive pulmonary disease) G8 BROTHER 32 MOTHER FH: back pain 33 FATHER G8 SISTER FH: cancer Family history: Cardiovascular disease (situation) G8 BROTHER Family history: Diabetes mellitus (situation) G8 BROTHER 32 MOTHER Disposition home CONDITION AT DISCHARGE: Improved, Stable Diet renal Scheduled Albuterol Sulfate (Albuterol Sulfate Neb Soln), 2.5 MG NEB RTQID Apixaban (Eliquis), 5 MG PO BID Atorvastatin Calcium (Atorvastatin Calcium), 10 MG PO QHS Levothyroxine Sodium (Levothyroxine Sodium), 175 MCG PO DAILYAC, (Reported) Lisinopril (Lisinopril), 2.5 MG PO DAILY Metoprolol Succinate (Metoprolol Succinate ( Xl )), 25 MG PO DAILY Follow Up 1-2 weeks Tristan PENG MD Jun 11, 2019 16:13
[2019-06-11 19:25] VITALS: BP 126/77
== END 2019-06-11 20:00 | disposition home or self-care (01) | DRG 291 ==
LOC: ER 12:34 → 6 SOUTH 14:07
PROVIDERS: ADMIT Family Medicine; ATTEND Family Medicine
PROC: 5A1D70Z Performance of Urinary Filtration, Intermittent, Less than 6 Hours Per Day (ICD-10-PCS; principal; 2019-06-11)
DX: I13.2 Hypertensive heart and chronic kidney disease with heart failure and with stage 5 chronic kidney disease, or end stage renal disease (principal); I50.43 Acute on chronic combined systolic (congestive) and diastolic (congestive) heart failure; J96.01 Acute respiratory failure with hypoxia; N18.6 End stage renal disease; J44.1 Chronic obstructive pulmonary disease with (acute) exacerbation; J40 Bronchitis, not specified as acute or chronic; D64.9 Anemia, unspecified; E03.9 Hypothyroidism, unspecified; E11.22 Type 2 diabetes mellitus with diabetic chronic kidney disease; K21.9 Gastro-esophageal reflux disease without esophagitis; E11.65 Type 2 diabetes mellitus with hyperglycemia; E78.5 Hyperlipidemia, unspecified; F32.9 Major depressive disorder, single episode, unspecified; E87.6 Hypokalemia; F17.200 Nicotine dependence, unspecified, uncomplicated; E21.3 Hyperparathyroidism, unspecified; I25.10 Atherosclerotic heart disease of native coronary artery without angina pectoris; Z82.49 Family history of ischemic heart disease and other diseases of the circulatory system; Z82.5 Family history of asthma and other chronic lower respiratory diseases; Z86.711 Personal history of pulmonary embolism; Z83.3 Family history of diabetes mellitus; Z86.74 Personal history of sudden cardiac arrest; Z89.512 Acquired absence of left leg below knee; Z99.2 Dependence on renal dialysis; Z99.81 Dependence on supplemental oxygen; Z95.5 Presence of coronary angioplasty implant and graft; Z79.899 Other long term (current) drug therapy; Z98.51 Tubal ligation status; Z71.6 Tobacco abuse counseling
CPT/HCPCS: 36415; 71045; 80053; 82550; 82962; 83605; 83735; 83880; 84484; 85007; 85025; 87040; 87641; 93005; 94640; 94760; 96374; 96375; J0696; J1815; J2930; J7613; J7620; J7626; Q0144; 99285-25; G0378

== ENCOUNTER 2019-06-25 12:57 | Inpatient (IN) | payer BC, OTHER ==
[~2019-06-25] VITALS: Ht 162.6 cm; Wt 95.9 kg
[2019-06-25] MEDS: LISINOPRIL 5 MG TABLET. PO SCH (09:00)
[~2019-06-25 12:57] MED LIST changes: +LINE600T12 PO; -LINE600T37 PO
[2019-06-25 13:46] LABS: BASO % 0 % (0-3); EOS # 0.2 x10^3/uL (0.0-0.7); EOS % 2 % (0-3); HEMATOCRIT 33.2 % (36.0-47.0); HEMOGLOBIN 10.9 g/dL (12.0-15.5); LYMPH # 1.3 x10^3/uL (1.0-4.8); LYMPH % 13 % (24-48); MEAN CORPUSCULAR HEMOGLOBIN 33 pg (25-35); MEAN CORPUSCULAR HGB CONC 33 g/dL (31-37); MEAN CORPUSCULAR VOLUME 102 fL (79-100); MONO # 0.7 x10^3/uL (0.0-1.1); MONO % 7 % (0-9); NEUT # 7.8 x10^3/uL (1.8-7.7); NEUT % 78 % (31-73); PLATELET COUNT 81 x10^3/uL (140-400); RED BLOOD COUNT 3.27 x10^6/uL (3.50-5.40); RED CELL DISTRIBUTION WIDTH 15.2 % (11.5-14.5)
[2019-06-25 13:55] LABS: PROTHROMBIN TIME PATIENT 12.9 SEC (11.7-14.0)
[2019-06-25 14:02] LABS: CALCIUM 8.8 mg/dL (8.5-10.1); CREATININE 4.2 mg/dL (0.6-1.0); GFR 10.6; POTASSIUM 4.7 mmol/L (3.5-5.1)
[2019-06-25 14:08] LABS: ALBUMIN 3.4 g/dL (3.4-5.0); ALBUMIN/GLOBULIN RATIO 0.7 (1.0-1.7); TOTAL BILIRUBIN 0.6 mg/dL (0.2-1.0); TOTAL PROTEIN 8.3 g/dL (6.4-8.2)
[2019-06-25] MEDS ORDERED: IPRATRPIUM/ALBUTEROL 0.5/2.5MG 3 ML NEBU. NEB ONE (14:15)
--- NOTE | 2019-06-25 14:21 | RAD ---
PORTABLE CHEST 1V History: Shortness of breath. COPD Comparison: June 10, 2019 Findings: Small bilateral pleural effusions, left greater than right, unchanged. Hazy patchy central and bibasilar opacities, similar compared to prior. Unchanged left sided pacemaker. No pneumothorax. Bilateral acromioclavicular DJD. Enlarged cardiac silhouette although portable technique accentuates cardiac size, unchanged. Impression: 1. Hazy and patchy bilateral pulmonary opacities, can be seen with pulmonary edema. 2. Small bilateral pleural effusions, unchanged. Electronically signed by: Alphonso Escobar DO (06/25/2019 2:18 PM) [id number]
--- NOTE | 2019-06-25 14:22 | EKG ---
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
[2019-06-25] MEDS: ALBUTEROL SULFATE 2.5 MG/3 ML NEBU. NEB SCH ×2 (14:24→20:06)
--- NOTE | 2019-06-25 14:42 | PHYS DOC ---
Past Medical History Past Medical History: CAD, CHF, COPD, Diabetes-Type II, Renal Failure, Vascular Disease Additional Past Medical Histor: CARDIAC ARREST Past Surgical History: Cholecystectomy, , Pacemaker, Tubal ligation Additional Past Surgical Histo: AICD, VASCULAR STENTS, CARDIAC STENTS, CADAVER ARTERY, LEFT BKA Alcohol Use: None Drug Use: None Adult General Chief Complaint Chief Complaint: SHORTNESS OF BREATH HPI HPI Patient is a 68 year old multiple medical problems end-stage renal disease hemodialysis COPD poorly controlled diabetes coronary artery disease who is presenting with acute shortness of breath while at dialysis apparently had a sat in the mid to high 80s on 3 L which is a little bit unusual for her according to paramedics she was acutely dyspneic was leaning over to breathe. She said she currently is feeling a little bit better than she did before sat is currently in the mid 90s. No chest pain really just short of breath has had a small cough no fever that she knows of this has happened to her on dialysis before but it usually chronic passes on its own this time is been persistent T Review of Systems Review of Systems Constitutional: Denies fever or chills [] Eyes: Denies change in visual acuity, redness, or eye pain [] Musculoskeletal: Denies back pain or joint pain [] Integument: Denies rash or skin lesions [] Neurologic: Denies headache, focal weakness or sensory changes [] Endocrine: Denies polyuria or polydipsia [] All other systems were reviewed and found to be within normal limits, except as documented in this note. Current Medications Current Medications Current Medications Medications (Trade) Dose Ordered Sig/Slick Start Time Stop Time Status Last Admin Dose Admin Albuterol/ Ipratropium (Duoneb) 3 ml 1X ONCE 06/25/19 14:15 06/25/19 14:16 DC 06/25/19 14:24 3 ML Allergies Allergies Allergies Coded Allergies Type Severity Reaction Last Updated Verified I S O L A T I O N *CONTACT* Allergy Unknown 07/22/18 Yes No Known Medication Allergies Allergy Unknown 07/23/18 Yes Physical Exam Physical Exam CHRONICLALY ILL APPEARING, PT IS TRIPODING ON ARRIVAL BUT IMPROVES WITH REPOSITIONING.. [] HENT: Normocephalic, atraumatic, bilateral external ears normal, oropharynx moist, no oral exudates, nose normal. [] Eyes: PERRLA, EOMI, conjunctiva normal, no discharge. [] Neck: Normal range of motion, no tenderness, supple, no stridor. [] Cardiovascular:Heart rate regular rhythm,DIFFIUCLT EXAM DUE TO RESPIRATIONS AND BODY HAVITUS Lungs & Thorax: CRACKLES AND RHONCHI LEFT GREATER THAN RIGHT BASE Abdomen: Bowel sounds normal, soft, no tenderness, no masses, no pulsatile masses. [] Skin: Warm, dry, no erythema, no rash. [] Back: No tenderness, no CVA tenderness. [] EXT: BKA NOTED, MULTIPLE SURGICAL INCISIONS NOTED Neurologic: Alert and oriented X 3, normal motor function, normal sensory function, no focal deficits noted. [] Psychologic: Affect normal, judgement normal, mood normal. [] Current Patient Data Vital Signs Vital Signs Date Time Temp Pulse Resp B/P (MAP) Pulse Ox O2 Delivery O2 Flow Rate FiO2 06/25/19 14:26 96 Nasal Cannula 3.0 06/25/19 13:02 97.8 87 24 130/62 (84) 97.8 Lab Values Laboratory Tests Test 06/25/19 13:35 White Blood Count 10.0 x10^3/uL (4.0-11.0) Red Blood Count 3.27 x10^6/uL (3.50-5.40) L Hemoglobin 10.9 g/dL (12.0-15.5) L Hematocrit 33.2 % (36.0-47.0) L Mean Corpuscular Volume 102 fL (79-100) H Mean Corpuscular Hemoglobin 33 pg (25-35) Mean Corpuscular Hemoglobin Concent 33 g/dL (31-37) Red Cell Distribution Width 15.2 % (11.5-14.5) H Platelet Count 81 x10^3/uL (140-400) L Neutrophils (%) (Auto) 78 % (31-73) H Lymphocytes (%) (Auto) 13 % (24-48) L Monocytes (%) (Auto) 7 % (0-9) Eosinophils (%) (Auto) 2 % (0-3) Basophils (%) (Auto) 0 % (0-3) Neutrophils # (Auto) 7.8 x10^3/uL (1.8-7.7) H Lymphocytes # (Auto) 1.3 x10^3/uL (1.0-4.8) Monocytes # (Auto) 0.7 x10^3/uL (0.0-1.1) Eosinophils # (Auto) 0.2 x10^3/uL (0.0-0.7) Basophils # (Auto) 0.0 x10^3/uL (0.0-0.2) Prothrombin Time 12.9 SEC (11.7-14.0) Prothrombin Time INR 1.0 (0.8-1.1) Sodium Level 138 mmol/L (136-145) Potassium Level 4.7 mmol/L (3.5-5.1) Chloride Level 100 mmol/L (98-107) Carbon Dioxide Level 28 mmol/L (21-32) Anion Gap 10 (6-14) Blood Urea Nitrogen 45 mg/dL (7-20) H Creatinine 4.2 mg/dL (0.6-1.0) H Estimated GFR (Cockcroft-Gault) 10.6 BUN/Creatinine Ratio 11 (6-20) Glucose Level 118 mg/dL (70-99) H Calcium Level 8.8 mg/dL (8.5-10.1) Total Bilirubin 0.6 mg/dL (0.2-1.0) Aspartate Amino Transferase (AST) 13 U/L (15-37) L Alanine Aminotransferase (ALT) 11 U/L (14-59) L Alkaline Phosphatase 114 U/L (46-116) Troponin I Quantitative 0.024 ng/mL (0.000-0.055) IM-Zsa-A-Type Natriuretic Peptide > 65926 pg/mL (0-124) H Total Protein 8.3 g/dL (6.4-8.2) H Albumin 3.4 g/dL (3.4-5.0) Albumin/Globulin Ratio 0.7 (1.0-1.7) L Laboratory Tests 06/25/19 13:35 Laboratory Tests 06/25/19 13:35 EKG EKG EKG shows a normal sinus rhythm rate of 84 left bundle branch block pattern in light of that no obvious STEMI was seen QTc 512[] Radiology/Procedures Radiology/Procedures [] Impressions: mpression: 1. Hazy and patchy bilateral pulmonary opacities, can be seen with pulmonary edema. 2. Small bilateral pleural effusions, unchanged. Electronically signed by: Alphonso Nicholson DO (06/25/2019 2:18 PM) [id number] DICTATED and SIGNED BY: ALPHONSO NICHOLSON DO DATE: 06/25/19 1418 Course & Med Decision Making Course & Med Decision Making 68 show female presenting with chief complaint of shortness of breath while dialysis patient has evidence of pulmonary edema but clinical examination as well as chest x-ray finding and lab work. This has been an issue for her in the past she is currently feeling somewhat better. I spoke with Dr. HERNANDEZ patient has a history of multiple issues at this point time plan to admit for diuresis patients to make sure and she tells me. Saturation is in the low 90s in the emergency room AT THIS TIME. Pertinent Labs and Imaging studies reviewed. (See chart for details) [] Dragon Disclaimer Dragon Disclaimer This electronic medical record was generated, in whole or in part, using a voice recognition dictation system. Departure Departure Impression: Primary Impression: Pulmonary edema Disposition: ADMITTED INPATIENT Admitting Physician: Levar Hernandez Condition: STABLE Referrals: Tristan HERNANDEZ MD (PCP) FINN HERNANDEZ MD Jun 25, 2019 14:42
[2019-06-25] MEDS ORDERED: FUROSEMIDE 40 MG/4 ML VIAL. IVP ONE (14:45)
[2019-06-25] MEDS ORDERED: ASPIRIN CHEWABLE 81 MG TABLET. PO ONE (15:00)
[2019-06-25 15:57] VITALS: BP 126/54
--- NOTE | 2019-06-25 16:15 | NUR ---
The patient, ANABELLE COFFMAN, 68 y/o, F admitted by Tristan PENG MD, was given written information regarding hospital policies, unit procedures and contact persons. Valuables were checked
--- NOTE | 2019-06-25 17:43 | PDOC1 ---
History and Physical Date of Admission Date of Admission 06/25/19 Identification/Chief Complaint Chief Complaint hypoxia during dialysis Source Source: Patient History of Present Illness History of Present Illness She had problems with hypoxia on Sunday during dialysis and Dr. Paiz wanted her to go to ER but she declined and about an hour later she felt better, she did not complete dialysis. Today she was even worse and her oxygen sats were in the 70 and she was more SOA and sent to ER with work up so far just showing pleural effusion. She denies chest pain, fever, chills, cold or allergy symptoms, cough, calf pain, problems with blood sugar, no new skin sores. She was given IV lasix in ER but not yet produced any urine Past Medical History Cardiovascular: CAD, CHF, HTN, CT, Hyperlipidemia Pulmonary: Asthma, COPD, Pulmonary embolus GI: GERD Heme/Onc: Anemia NOS Hepatobiliary: No pertinent hx Psych: Depression Rheumatologic: No pertinent hx Infectious disease: No pertinent hx Renal/: Chronic renal insuff, Chronic renal failure Endocrine: Diabetes, Hypothyroidism, Hyperparathyroidism Past Surgical History Past Surgical History: Cholecystectomy, , Other Family History Family History: Cancer, Chronic Bronchitis, Diabetes, Hypertension Social History ALCOHOL: none Drugs: None Current Problem List Problem List Problems Medical Problems: (1) Pulmonary edema Status: Acute Current Medications Current Medications Current Medications Medications (Trade) Dose Ordered Sig/Slick Start Time Stop Time Status Last Admin Dose Admin Albuterol Sulfate (Ventolin Neb Soln) 2.5 mg RTQID 06/25/19 16:00 Albuterol/ Ipratropium (Duoneb) 3 ml 1X ONCE 06/25/19 14:15 06/25/19 14:16 DC 06/25/19 14:24 3 ML Apixaban (Eliquis) 5 mg BID 06/25/19 21:00 Aspirin (Children'S Aspirin) 324 mg 1X ONCE 06/25/19 15:00 06/25/19 15:01 DC 06/25/19 15:00 324 MG Atorvastatin Calcium (Lipitor) 10 mg QHS 06/25/19 21:00 Furosemide (Lasix) 40 mg 1X ONCE 06/25/19 14:45 06/25/19 14:46 DC 06/25/19 15:00 40 MG Info (Anti-Coagulation Monitoring By Pharmacy) 1 each PRN DAILY PRN 06/25/19 15:45 Levothyroxine Sodium (Synthroid) 175 mcg DAILYAC 06/26/19 07:30 Lisinopril (Prinivil) 2.5 mg DAILY 06/25/19 09:00 Metoprolol Succinate (Toprol Xl) 25 mg DAILY 06/26/19 09:00 Allergies Allergies Allergies Coded Allergies Type Severity Reaction Last Updated Verified I S O L A T I O N *CONTACT* Allergy Unknown 07/22/18 Yes No Known Medication Allergies Allergy Unknown 07/23/18 Yes ROS Review of System CONSTITUTIONAL: No fever or chills EYES: poor vision SKIN: No rash or itching CARDIOVASCULAR: No chest pain, syncope, palpitations, or edema RESPIRATORY: see HPI GASTROINTESTINAL: No nausea, vomiting or abdominal pain NEUROLOGICAL: No headaches or weakness ENDOCRINE: No cold or heat intolerance GENITOURINARY: No urgency or discharge MUSCULOSKELETAL: No back pain or joint pain LYMPHATICS: No enlarged lymph nodes PSYCHIATRIC: No anxiety or depression Physical Exam Physical Exam GEN.: No apparent distress. Alert and oriented. HEENT: Head is normocephalic, atraumatic NECK: Supple. LUNGS: Clear to auscultation. HEART: RRR, S1, S2 present. Peripheral pulses intact ABDOMEN: Soft, nontender. Positive bowel sounds. EXTREMITIES: Without any cyanosis. NEUROLOGIC: Normal speech, normal tone PSYCHIATRIC: Normal affect, normal mood. SKIN: No ulcerations Vitals Vitals Vital Signs Date Time Temp Pulse Resp B/P (MAP) Pulse Ox O2 Delivery O2 Flow Rate FiO2 06/25/19 15:57 98.2 78 18 126/54 (78) 86 Room Air 98.2 06/25/19 15:06 3.0 Labs Labs Laboratory Tests Test 06/25/19 13:35 White Blood Count 10.0 x10^3/uL (4.0-11.0) Red Blood Count 3.27 x10^6/uL (3.50-5.40) Hemoglobin 10.9 g/dL (12.0-15.5) Hematocrit 33.2 % (36.0-47.0) Mean Corpuscular Volume 102 fL (79-100) Mean Corpuscular Hemoglobin 33 pg (25-35) Mean Corpuscular Hemoglobin Concent 33 g/dL (31-37) Red Cell Distribution Width 15.2 % (11.5-14.5) Platelet Count 81 x10^3/uL (140-400) Neutrophils (%) (Auto) 78 % (31-73) Lymphocytes (%) (Auto) 13 % (24-48) Monocytes (%) (Auto) 7 % (0-9) Eosinophils (%) (Auto) 2 % (0-3) Basophils (%) (Auto) 0 % (0-3) Neutrophils # (Auto) 7.8 x10^3/uL (1.8-7.7) Lymphocytes # (Auto) 1.3 x10^3/uL (1.0-4.8) Monocytes # (Auto) 0.7 x10^3/uL (0.0-1.1) Eosinophils # (Auto) 0.2 x10^3/uL (0.0-0.7) Basophils # (Auto) 0.0 x10^3/uL (0.0-0.2) Prothrombin Time 12.9 SEC (11.7-14.0) Prothromb Time International Ratio 1.0 (0.8-1.1) Sodium Level 138 mmol/L (136-145) Potassium Level 4.7 mmol/L (3.5-5.1) Chloride Level 100 mmol/L (98-107) Carbon Dioxide Level 28 mmol/L (21-32) Anion Gap 10 (6-14) Blood Urea Nitrogen 45 mg/dL (7-20) Creatinine 4.2 mg/dL (0.6-1.0) Estimated GFR (Cockcroft-Gault) 10.6 BUN/Creatinine Ratio 11 (6-20) Glucose Level 118 mg/dL (70-99) Calcium Level 8.8 mg/dL (8.5-10.1) Total Bilirubin 0.6 mg/dL (0.2-1.0) Aspartate Amino Transf (AST/SGOT) 13 U/L (15-37) Alanine Aminotransferase (ALT/SGPT) 11 U/L (14-59) Alkaline Phosphatase 114 U/L (46-116) Troponin I Quantitative 0.024 ng/mL (0.000-0.055) UL-Uow-E-Type Natriuretic Peptide > 86720 pg/mL (0-124) Total Protein 8.3 g/dL (6.4-8.2) Albumin 3.4 g/dL (3.4-5.0) Albumin/Globulin Ratio 0.7 (1.0-1.7) Laboratory Tests Test 06/25/19 13:35 White Blood Count 10.0 x10^3/uL (4.0-11.0) Red Blood Count 3.27 x10^6/uL (3.50-5.40) Hemoglobin 10.9 g/dL (12.0-15.5) Hematocrit 33.2 % (36.0-47.0) Mean Corpuscular Volume 102 fL (79-100) Mean Corpuscular Hemoglobin 33 pg (25-35) Mean Corpuscular Hemoglobin Concent 33 g/dL (31-37) Red Cell Distribution Width 15.2 % (11.5-14.5) Platelet Count 81 x10^3/uL (140-400) Neutrophils (%) (Auto) 78 % (31-73) Lymphocytes (%) (Auto) 13 % (24-48) Monocytes (%) (Auto) 7 % (0-9) Eosinophils (%) (Auto) 2 % (0-3) Basophils (%) (Auto) 0 % (0-3) Neutrophils # (Auto) 7.8 x10^3/uL (1.8-7.7) Lymphocytes # (Auto) 1.3 x10^3/uL (1.0-4.8) Monocytes # (Auto) 0.7 x10^3/uL (0.0-1.1) Eosinophils # (Auto) 0.2 x10^3/uL (0.0-0.7) Basophils # (Auto) 0.0 x10^3/uL (0.0-0.2) Prothrombin Time 12.9 SEC (11.7-14.0) Prothromb Time International Ratio 1.0 (0.8-1.1) Sodium Level 138 mmol/L (136-145) Potassium Level 4.7 mmol/L (3.5-5.1) Chloride Level 100 mmol/L (98-107) Carbon Dioxide Level 28 mmol/L (21-32) Anion Gap 10 (6-14) Blood Urea Nitrogen 45 mg/dL (7-20) Creatinine 4.2 mg/dL (0.6-1.0) Estimated GFR (Cockcroft-Gault) 10.6 BUN/Creatinine Ratio 11 (6-20) Glucose Level 118 mg/dL (70-99) Calcium Level 8.8 mg/dL (8.5-10.1) Total Bilirubin 0.6 mg/dL (0.2-1.0) Aspartate Amino Transf (AST/SGOT) 13 U/L (15-37) Alanine Aminotransferase (ALT/SGPT) 11 U/L (14-59) Alkaline Phosphatase 114 U/L (46-116) Troponin I Quantitative 0.024 ng/mL (0.000-0.055) YL-Sme-Q-Type Natriuretic Peptide > 88764 pg/mL (0-124) Total Protein 8.3 g/dL (6.4-8.2) Albumin 3.4 g/dL (3.4-5.0) Albumin/Globulin Ratio 0.7 (1.0-1.7) Images Images History: Shortness of breath. COPD Comparison: June 10, 2019 Findings: Small bilateral pleural effusions, left greater than right, unchanged. Hazy patchy central and bibasilar opacities, similar compared to prior. Unchanged left sided pacemaker. No pneumothorax. Bilateral acromioclavicular DJD. Enlarged cardiac silhouette although portable technique accentuates cardiac size, unchanged. Impression: 1. Hazy and patchy bilateral pulmonary opacities, can be seen with pulmonary edema. 2. Small bilateral pleural effusions, unchanged. VTE Prophylaxis Ordered VTE Prophylaxis Devices: Yes VTE Pharmacological Prophylaxi: Yes Assessment/Plan Assessment/Plan acute hypoxic respiratory failure - O2 acute on chronic diastolic heart failure - IV lasix ineffective so far - check echo, consult cardiology ESRD on dialysis - consult renal, routine dialysis is -W- but she did not complete the past 2 times hx of PE - check d-dimer V/Q scan cardiomyopathy with AICD type 2 diabetes with nephropathy, retinopathy, neuropathy - SSI insulin Tristan PENG MD Jun 25, 2019 17:43
[2019-06-25] MEDS ORDERED: DEXTROSE 50% 25 GM / 50ML DISP.SYRIN. IV PRN (17:45)
[2019-06-25] MEDS: ATORVASTATIN CALCIUM 10 MG TABLET. PO SCH (20:25)
[2019-06-25] MEDS: APIXABAN 5 MG TABLET. PO SCH (20:25)
[2019-06-25 22:38] VITALS: BP 101/46
--- NOTE | 2019-06-26 00:04 | RAD ---
EXAM: VENTILATION/PERFUSION SCINTIGRAPHY. HISTORY: Hypoxia, history of pulmonary embolism. Assess for pulmonary embolism. TECHNIQUE: 19 mCi Xe-133 was inhaled and ventilation images were obtained. 5.5 mCi Tc-99m MAA was injected intravenously and perfusion images were obtained in multiple projections. COMPARISON: 03/18/2018, today's radiograph. FINDINGS: There is a moderate ventilation defect in the left base, likely reflecting the enlarged heart shadow and a small pleural effusion. This is matched with a perfusion defect. No clear segmental defects are seen. A pacemaker shadow is noted on the left. IMPRESSION: 1. No clear segmental perfusion defects. Low probability for pulmonary embolism. Electronically signed by: Mak Wolfe MD (06/26/2019 12:01 AM) [facility]
[2019-06-26 03:52] VITALS: BP 102/49
[2019-06-26 04:45] LABS: BASO % 1 % (0-3); EOS # 0.3 x10^3/uL (0.0-0.7); EOS % 3 % (0-3); HEMATOCRIT 29.9 % (36.0-47.0); HEMOGLOBIN 10.1 g/dL (12.0-15.5); LYMPH # 1.8 x10^3/uL (1.0-4.8); LYMPH % 24 % (24-48); MEAN CORPUSCULAR HEMOGLOBIN 35 pg (25-35); MEAN CORPUSCULAR HGB CONC 34 g/dL (31-37); MEAN CORPUSCULAR VOLUME 103 fL (79-100); MONO # 0.5 x10^3/uL (0.0-1.1); MONO % 7 % (0-9); NEUT # 4.8 x10^3/uL (1.8-7.7); NEUT % 65 % (31-73); PLATELET COUNT 82 x10^3/uL (140-400); RED BLOOD COUNT 2.92 x10^6/uL (3.50-5.40); RED CELL DISTRIBUTION WIDTH 14.8 % (11.5-14.5); WHITE BLOOD COUNT 7.4 x10^3/uL (4.0-11.0)
[2019-06-26 04:56] LABS: CALCIUM 8.7 mg/dL (8.5-10.1); CREATININE 4.8 mg/dL (0.6-1.0); GFR 9.1; POTASSIUM 4.3 mmol/L (3.5-5.1)
[2019-06-26 07:00] VITALS: BP 104/46
[2019-06-26] MEDS: INSULIN LISPRO 300 UNITS/3 ML VIAL. SQ SCH ×3 (08:00→17:00)
[2019-06-26] MEDS: ALBUTEROL SULFATE 2.5 MG/3 ML NEBU. NEB SCH ×4 (08:06→20:14)
[2019-06-26] MEDS: LEVOTHYROXINE 150 MCG TABLET PO SCH (08:53)
[2019-06-26] MEDS: APIXABAN 5 MG TABLET. PO SCH ×2 (08:54→20:17)
[2019-06-26] MEDS: LISINOPRIL 5 MG TABLET. PO SCH (08:54)
[2019-06-26] MEDS: METOPROLOL SUCC 24HR ER 25 MG TAB.ER.24H. PO SCH (08:54)
--- NOTE | 2019-06-26 09:51 | NUR ---
IP: Pt has a recent hx of + mrsa screen on 03/11/19. current screen is pending. Pt to be in contact precautions and begin Nozin/CHG decolonization. Addendum: 06/27/19 at 1029 by PRINCE AKHTAR RN After review of mrsa screens, pt now has 2 negatives and may be removed form contact precautions.
--- NOTE | 2019-06-26 10:10 | PDOC2 ---
MERLYN MULLIGAN [employer] 06/26/19 1010: CARDIAC CONSULT DATE OF CONSULT Date of Consult DATE: 06/26/19 TIME: 10:00 REASON FOR CONSULT Reason for Consult: pulmonary edema, hypoxia REFERRING PHYSICIAN Referring Physician: Dr. Hernandez SOURCE Source: Chart review, Patient HISTORY OF PRESENT ILLNESS HISTORY OF PRESENT ILLNESS This is a 68 yo female, known to us from outpatient clinic, who presented secondary to shortness of breath and hypoxia. Patient reports she has been more short of breath for the last couple of days. Worse yesterday. Was skilled nursing through dialysis yesterday and was significantly dyspneic. Was hypoxic with 02 saturations in the upper 70's and low 80's. Dialysis was discontinued and patient was transferred to the ED for further evaluation and treatment. Denies any chest pain, palpitations, dizziness, diaphoresis, or nausea/vomiting. No recent illness/fevers. Reports compliance with medications and HD. Received IV Lasix yesterday in ED. Patient reports minimal output and 200cc documents. Po pite minimal diuresis, patient reports improvement in symptoms today. PAST MEDICAL HISTORY Past Medical History Cardiovascular: CAD, CHF, HTN, Hyperlipidemia, Other (PAD) Pulmonary: COPD CENTRAL NERVOUS SYSTEM: Other (no pertinent hx) Heme/Onc: Anemia NOS, PE Hepatobiliary: No pertinent hx Psych: Anxiety Musculoskeletal: Osteoarthritis Rheumatologic: No pertinent hx Infectious disease: No pertinent hx ENT: No pertinent hx Renal/: Chronic renal failure (ESRD on HD) Endocrine: Diabetes, Hypothyroidism PAST SURGICAL HISTORY Past Surgical History Pacemaker (AICD), Cholecystectomy, Tubal Ligation, Other (bilateral fem-pop bypass, left BKA) FAMILY HISTORY Family History Coronary Artery Disease, Diabetes SOCIAL HISTORY Social History Smoke: 2-3 cigarettes per day ALCOHOL: none Drugs: None Lives: with Family CURRENT MEDICATIONS CURRENT MEDICATIONS Current Medications Medications (Trade) Dose Ordered Sig/Slick Route PRN Reason Start Time Stop Time Status Last Admin Dose Admin Albuterol/ Ipratropium (Duoneb) 3 ml 1X ONCE NEB 06/25/19 14:15 06/25/19 14:16 DC 06/25/19 14:24 Furosemide (Lasix) 40 mg 1X ONCE IVP 06/25/19 14:45 06/25/19 14:46 DC 06/25/19 15:00 Aspirin (Children'S Aspirin) 324 mg 1X ONCE PO 06/25/19 15:00 06/25/19 15:01 DC 06/25/19 15:00 Albuterol Sulfate (Ventolin Neb Soln) 2.5 mg RTQID NEB 06/25/19 16:00 06/26/19 08:06 Apixaban (Eliquis) 5 mg BID PO 06/25/19 21:00 06/26/19 08:54 Atorvastatin Calcium (Lipitor) 10 mg QHS PO 06/25/19 21:00 06/25/19 20:25 Levothyroxine Sodium (Synthroid) 175 mcg DAILYAC PO 06/26/19 07:30 06/26/19 08:53 Metoprolol Succinate (Toprol Xl) 25 mg DAILY PO 06/26/19 09:00 06/26/19 08:54 ALLERGIES ALLERGIES: Coded Allergies: I S O L A T I O N *CONTACT* (Verified Allergy, Unknown, 07/22/18) mrsa No Known Medication Allergies (Verified Allergy, Unknown, 07/23/18) ROS Review of System 14 point ROS conducted with pertinent positives noted above in HPI. PHYSICAL EXAM PHYSICAL EXAM General: Alert, Oriented X3, Cooperative, No acute distress HEENT: Atraumatic Lungs: diminished bases Heart: Regular rate, Normal S1, Normal S2, 2/6 systolic murmur Abdomen: Soft Extremities: No edema, Normal pulses. left AKA Skin: No significant lesion Neuro: Normal speech, Sensation intact Psych/Mental Status: Mental status NL, Mood NL MUSCULOSKELETAL: Osteoarthritic changes both hands VITALS/I&O VITALS/I&O: Vital Signs Date Time Temp Pulse Resp B/P (MAP) Pulse Ox O2 Delivery O2 Flow Rate FiO2 06/26/19 08:54 71 133/62 06/26/19 08:08 98 Nasal Cannula 3.0 06/26/19 07:00 97.8 22 97.8 I & O 06/25/19 06/25/19 06/26/19 15:00 23:00 07:00 Intake Total 200 ml 1180 ml Output Total 200 ml Balance 200 ml 980 ml LABS Lab: Laboratory Tests Test 06/25/19 13:35 06/25/19 20:23 06/25/19 20:30 06/26/19 03:02 White Blood Count 10.0 x10^3/uL (4.0-11.0) 7.4 x10^3/uL (4.0-11.0) Red Blood Count 3.27 x10^6/uL (3.50-5.40) L 2.92 x10^6/uL (3.50-5.40) L Hemoglobin 10.9 g/dL (12.0-15.5) L 10.1 g/dL (12.0-15.5) L Hematocrit 33.2 % (36.0-47.0) L 29.9 % (36.0-47.0) L Mean Corpuscular Volume 102 fL (79-100) H 103 fL (79-100) H Mean Corpuscular Hemoglobin 33 pg (25-35) 35 pg (25-35) Mean Corpuscular Hemoglobin Concent 33 g/dL (31-37) 34 g/dL (31-37) Red Cell Distribution Width 15.2 % (11.5-14.5) H 14.8 % (11.5-14.5) H Platelet Count 81 x10^3/uL (140-400) L 82 x10^3/uL (140-400) L Neutrophils (%) (Auto) 78 % (31-73) H 65 % (31-73) Lymphocytes (%) (Auto) 13 % (24-48) L 24 % (24-48) Monocytes (%) (Auto) 7 % (0-9) 7 % (0-9) Eosinophils (%) (Auto) 2 % (0-3) 3 % (0-3) Basophils (%) (Auto) 0 % (0-3) 1 % (0-3) Neutrophils # (Auto) 7.8 x10^3/uL (1.8-7.7) H 4.8 x10^3/uL (1.8-7.7) Lymphocytes # (Auto) 1.3 x10^3/uL (1.0-4.8) 1.8 x10^3/uL (1.0-4.8) Monocytes # (Auto) 0.7 x10^3/uL (0.0-1.1) 0.5 x10^3/uL (0.0-1.1) Eosinophils # (Auto) 0.2 x10^3/uL (0.0-0.7) 0.3 x10^3/uL (0.0-0.7) Basophils # (Auto) 0.0 x10^3/uL (0.0-0.2) 0.0 x10^3/uL (0.0-0.2) Prothrombin Time 12.9 SEC (11.7-14.0) Prothrombin Time INR 1.0 (0.8-1.1) D-Dimer (Day) 4.95 ug/mlFEU (0.00-0.50) H Sodium Level 138 mmol/L (136-145) 138 mmol/L (136-145) Potassium Level 4.7 mmol/L (3.5-5.1) 4.3 mmol/L (3.5-5.1) Chloride Level 100 mmol/L (98-107) 100 mmol/L (98-107) Carbon Dioxide Level 28 mmol/L (21-32) 30 mmol/L (21-32) Anion Gap 10 (6-14) 8 (6-14) Blood Urea Nitrogen 45 mg/dL (7-20) H 59 mg/dL (7-20) H Creatinine 4.2 mg/dL (0.6-1.0) H 4.8 mg/dL (0.6-1.0) H Estimated GFR (Cockcroft-Gault) 10.6 9.1 BUN/Creatinine Ratio 11 (6-20) Glucose Level 118 mg/dL (70-99) H 126 mg/dL (70-99) H Calcium Level 8.8 mg/dL (8.5-10.1) 8.7 mg/dL (8.5-10.1) Total Bilirubin 0.6 mg/dL (0.2-1.0) Aspartate Amino Transferase (AST) 13 U/L (15-37) L Alanine Aminotransferase (ALT) 11 U/L (14-59) L Alkaline Phosphatase 114 U/L (46-116) Troponin I Quantitative 0.024 ng/mL (0.000-0.055) 0.018 ng/mL (0.000-0.055) UX-Jux-P-Type Natriuretic Peptide > 43382 pg/mL (0-124) H Total Protein 8.3 g/dL (6.4-8.2) H Albumin 3.4 g/dL (3.4-5.0) Albumin/Globulin Ratio 0.7 (1.0-1.7) L Glucose (Fingerstick) 156 mg/dL (70-99) H Test 06/26/19 07:51 Glucose (Fingerstick) 127 mg/dL (70-99) H Laboratory Tests 06/25/19 13:35 06/26/19 03:02 Laboratory Tests 06/25/19 13:35 06/26/19 03:02 ECHOCARDIOGRAM ECHOCARDIOGRAM <Conclusion> There is global hypokinesis. Septal motion suggestive of pacing/condution defect. The systolic function is severely impaired. EF 25% There is a pacemaker/ICD lead in the right ventricle. There is no significant aortic valvular stenosis by doppler criteria, visually the valve appears moderately stenotic. Cannot rule out low gradient, severe Doppler and Color Flow revealed mild eccentric tricuspid regurgitation. There is moderate pulmonary hypertension. The PA pressure was estimated at 56 mmHg. There is moderate left pleural effusion. DATE: 12/24/18 0806 STRESS TEST STRESS TEST Conclusion 1. No EKG evidence of stressed induced ischemia. 2. Nuclear imaging shows an infarct in the inferior lateral and apical region with some chato-infarct ischemia. 3. Globally decreased LV systolic function with ejection fraction of 34%. 4. Moderate risk Lexiscan nuclear stress test. DATE: 09/09/17 1314 HEART CATH HEART CATH CORONARY ANGIOGRAPHY: LM is a large caliber vessel with a distal 20% stenosis. LAD is a large caliber vessel with a proximal 40-50% stenosis. Ramus is a moderate caliber vessel with an ostial 20% stenosis and patent proximal stent. LCx is a moderate caliber non-dominant vessel with mild luminal irregularities. RCA is a moderate caliber dominant vessel with a proximal to mid 100% occlusion. The distal vessel is seen to fill via left to right collaterals *Overall, no significant change from prior angiography Conclusion 1. Elevated left sided filling pressures. (LVEDP 22 mm Hg) 2. Three vessel coronary disease. 3. No significant change compared to prior angiogram 4. Known severe PAD. Recommendations 1. Continue aggressive medical therapy 2. Plan for thoracentesis tomorrow per pulmonary team 3. Continue fluid removal with HD. DATE: 12/24/18 1607 ASSESSMENT/PLAN ASSESSMENT/PLAN 1. Acute respiratory failure secondary to acute CHF 2. Acute on chronic systolic HF 3. ICM s/p AICD (Biotronik); LVEF 25% 4. CAD; s/p PCI/PO to proximal ramus 08/2016. cath earlier this year without intervention as noted above 5. Hypertension; controlled 6. Hyperlipidemia; lipids on goal 6. Diabetes, II 8. ESRD on HD 9. H/o PE; on Eliquis Recommendations Fluid off loading with HD as per nephrology; to be dialyzed later today Device interrogation Secondary prevention LAURA RIVERA MD 06/26/19 1751: CARDIAC CONSULT ASSESSMENT/PLAN ASSESSMENT/PLAN (1) MERLYN MULLIGAN APRN Jun 26, 2019 10:10 LAURA RIVERA MD Jun 26, 2019 17:51 1: Patient seen and examined. Agree with above nurse practitioner note. Acute on chronic decompensated systolic and diastolic heart failure despite going to dialysis regularly. Her dry weight has been slowly decreased over the last several weeks. Her echocardiogram is concerning with severe LV dysfunction and evidence of possible aortic stenosis although this may be pseudo-aortic stenosis due to severe LV dysfunction. We will await her improvement with diuresis and fluid off load from dialysis and reassess her symptoms in the next 24 hours. She may ultimately need a right left heart catheterization for further evaluation.
[2019-06-26 11:00] VITALS: BP 134/64
--- NOTE | 2019-06-26 11:21 | PDOC2 ---
CONSULT Date of Consult Date of Consult DATE: 06/26/19 TIME: 11:07 Reason for Consult Reason for Consult: ESRD Source Source: Chart review, Patient History of Present Illness Reason for Visit: Pt is 68 yo ESRD on HD MWF admitted with c/o having hypoxia yesterday on HD and was sent to the ER . She completed half of the treatment Her O2 sats were in the 70 and she was more SOA . She denies chest pain, fever, chills, cold , cough, She was given IV lasix in ER Past Medical History Cardiovascular: CAD, CHF, HTN, NH, Hyperlipidemia Pulmonary: Asthma, COPD, Pulmonary embolus GI: GERD Heme/Onc: Anemia NOS Hepatobiliary: No pertinent hx Psych: Depression Rheumatologic: No pertinent hx Infectious disease: No pertinent hx Renal/: Chronic renal insuff, Chronic renal failure Endocrine: Diabetes, Hypothyroidism, Hyperparathyroidism Past Surgical History Past Surgical History: Cholecystectomy, , Other Family History Family History: Cancer, Chronic Bronchitis, Diabetes, Hypertension Social History ALCOHOL: none Drugs: None Lives: with Family Current Problem List Problem List Problems Medical Problems: (1) Pulmonary edema Status: Acute Current Medications Current Medications Current Medications Albuterol/ Ipratropium (Duoneb) 3 ml 1X ONCE NEB Last administered on 06/25/19at 14:24; Start 06/25/19 at 14:15; Stop 06/25/19 at 14:16; Status DC Furosemide (Lasix) 40 mg 1X ONCE IVP Last administered on 06/25/19at 15:00; Start 06/25/19 at 14:45; Stop 06/25/19 at 14:46; Status DC Aspirin (Children'S Aspirin) 324 mg 1X ONCE PO Last administered on 06/25/19at 15:00; Start 06/25/19 at 15:00; Stop 06/25/19 at 15:01; Status DC Albuterol Sulfate (Ventolin Neb Soln) 2.5 mg RTQID NEB Last administered on 06/26/19at 08:06; Start 06/25/19 at 16:00 Apixaban (Eliquis) 5 mg BID PO Last administered on 06/26/19at 08:54; Start 06/25/19 at 21:00 Atorvastatin Calcium (Lipitor) 10 mg QHS PO Last administered on 06/25/19at 20:25; Start 06/25/19 at 21:00 Levothyroxine Sodium (Synthroid) 175 mcg DAILYAC PO Last administered on 06/26/19at 08:53; Start 06/26/19 at 07:30 Lisinopril (Prinivil) 2.5 mg DAILY PO Last administered on 06/26/19at 08:54; Start 06/25/19 at 09:00 Metoprolol Succinate (Toprol Xl) 25 mg DAILY PO Last administered on 06/26/19at 08:54; Start 06/26/19 at 09:00 Info (Anti-Coagulation Monitoring By Pharmacy) 1 each PRN DAILY PRN MC SEE COMMENTS; Start 06/25/19 at 15:45 Insulin Human Lispro (HumaLOG) 0-5 UNITS TIDWMEALS SQ ; Start 06/26/19 at 08:00 Dextrose (Dextrose 50%-Water Syringe) 12.5 gm PRN Q15MIN PRN IV SEE COMMENTS; Start 06/25/19 at 17:45 Active Scripts Active Lisinopril 5 Mg Tablet 2.5 Mg PO DAILY 90 Days Metoprolol Succinate ( Xl ) (Metoprolol Succinate) 25 Mg Tab.er.24h 25 Mg PO DAILY 90 Days Atorvastatin Calcium 10 Mg Tablet 10 Mg PO QHS 30 Days Eliquis (Apixaban) 5 Mg Tablet 5 Mg PO BID 30 Days Albuterol Sulfate Neb Soln (Albuterol Sulfate) 2.5 Mg/3 Ml Vial.neb 2.5 Mg NEB RTQID Reported Levothyroxine Sodium 150 Mcg Tablet 175 Mcg PO DAILYAC Allergies Allergies: Coded Allergies: I S O L A T I O N *CONTACT* (Verified Allergy, Unknown, 07/22/18) mrsa No Known Medication Allergies (Verified Allergy, Unknown, 07/23/18) ROS Review of System pER hpi Physical Exam Physical Exam GEN.: No apparent distress.morbidly obese HEENT: OM moist NECK: Supple. LUNGS: Clear to auscultation. HEART: RRR, S1, S2 present. ABDOMEN: Soft, Obese EXTREMITIES: trace edema NEUROLOGIC: AxO x3 PSYCHIATRIC: Normal affect, normal mood. SKIN: No Rash No Tai Vital Signs Vital Signs Date Time Temp Pulse Resp B/P (MAP) Pulse Ox O2 Delivery O2 Flow Rate FiO2 06/26/19 08:54 71 133/62 06/26/19 08:08 98 Nasal Cannula 3.0 06/26/19 07:00 97.8 22 97.8 Assessment & Plan End-stage renal disease secondary to diabetic nephropathy On HD MWF, didn't complete HD yesterday due to Hypoxia Dialysis today as ordered- mainly for UF, [facility] [place] Dyspnea - Hx of chronic obstructive pulmonary disease, smoker CxR findings reviewed Anemia- mild. stable, [place] per protocol for Hg <10 CHF- severe systolic Per cardiology CAD- asymptomatic. DM2-per primary Thrombocytopenia- Defer to primary Hx of pulmonary embolism- on eliquis 5mg BID Labs Labs Laboratory Tests Test 06/25/19 13:35 06/25/19 20:23 06/25/19 20:30 06/26/19 03:02 White Blood Count 10.0 x10^3/uL (4.0-11.0) 7.4 x10^3/uL (4.0-11.0) Red Blood Count 3.27 x10^6/uL (3.50-5.40) 2.92 x10^6/uL (3.50-5.40) Hemoglobin 10.9 g/dL (12.0-15.5) 10.1 g/dL (12.0-15.5) Hematocrit 33.2 % (36.0-47.0) 29.9 % (36.0-47.0) Mean Corpuscular Volume 102 fL (79-100) 103 fL (79-100) Mean Corpuscular Hemoglobin 33 pg (25-35) 35 pg (25-35) Mean Corpuscular Hemoglobin Concent 33 g/dL (31-37) 34 g/dL (31-37) Red Cell Distribution Width 15.2 % (11.5-14.5) 14.8 % (11.5-14.5) Platelet Count 81 x10^3/uL (140-400) 82 x10^3/uL (140-400) Neutrophils (%) (Auto) 78 % (31-73) 65 % (31-73) Lymphocytes (%) (Auto) 13 % (24-48) 24 % (24-48) Monocytes (%) (Auto) 7 % (0-9) 7 % (0-9) Eosinophils (%) (Auto) 2 % (0-3) 3 % (0-3) Basophils (%) (Auto) 0 % (0-3) 1 % (0-3) Neutrophils # (Auto) 7.8 x10^3/uL (1.8-7.7) 4.8 x10^3/uL (1.8-7.7) Lymphocytes # (Auto) 1.3 x10^3/uL (1.0-4.8) 1.8 x10^3/uL (1.0-4.8) Monocytes # (Auto) 0.7 x10^3/uL (0.0-1.1) 0.5 x10^3/uL (0.0-1.1) Eosinophils # (Auto) 0.2 x10^3/uL (0.0-0.7) 0.3 x10^3/uL (0.0-0.7) Basophils # (Auto) 0.0 x10^3/uL (0.0-0.2) 0.0 x10^3/uL (0.0-0.2) Prothrombin Time 12.9 SEC (11.7-14.0) Prothromb Time International Ratio 1.0 (0.8-1.1) D-Dimer (Day) 4.95 ug/mlFEU (0.00-0.50) Sodium Level 138 mmol/L (136-145) 138 mmol/L (136-145) Potassium Level 4.7 mmol/L (3.5-5.1) 4.3 mmol/L (3.5-5.1) Chloride Level 100 mmol/L (98-107) 100 mmol/L (98-107) Carbon Dioxide Level 28 mmol/L (21-32) 30 mmol/L (21-32) Anion Gap 10 (6-14) 8 (6-14) Blood Urea Nitrogen 45 mg/dL (7-20) 59 mg/dL (7-20) Creatinine 4.2 mg/dL (0.6-1.0) 4.8 mg/dL (0.6-1.0) Estimated GFR (Cockcroft-Gault) 10.6 9.1 BUN/Creatinine Ratio 11 (6-20) Glucose Level 118 mg/dL (70-99) 126 mg/dL (70-99) Calcium Level 8.8 mg/dL (8.5-10.1) 8.7 mg/dL (8.5-10.1) Total Bilirubin 0.6 mg/dL (0.2-1.0) Aspartate Amino Transf (AST/SGOT) 13 U/L (15-37) Alanine Aminotransferase (ALT/SGPT) 11 U/L (14-59) Alkaline Phosphatase 114 U/L (46-116) Troponin I Quantitative 0.024 ng/mL (0.000-0.055) 0.018 ng/mL (0.000-0.055) ZC-Urm-M-Type Natriuretic Peptide > 15038 pg/mL (0-124) Total Protein 8.3 g/dL (6.4-8.2) Albumin 3.4 g/dL (3.4-5.0) Albumin/Globulin Ratio 0.7 (1.0-1.7) Glucose (Fingerstick) 156 mg/dL (70-99) Test 06/26/19 07:51 Glucose (Fingerstick) 127 mg/dL (70-99) Laboratory Tests Test 06/25/19 13:35 06/25/19 20:23 06/25/19 20:30 06/26/19 03:02 White Blood Count 10.0 x10^3/uL (4.0-11.0) 7.4 x10^3/uL (4.0-11.0) Red Blood Count 3.27 x10^6/uL (3.50-5.40) 2.92 x10^6/uL (3.50-5.40) Hemoglobin 10.9 g/dL (12.0-15.5) 10.1 g/dL (12.0-15.5) Hematocrit 33.2 % (36.0-47.0) 29.9 % (36.0-47.0) Mean Corpuscular Volume 102 fL (79-100) 103 fL (79-100) Mean Corpuscular Hemoglobin 33 pg (25-35) 35 pg (25-35) Mean Corpuscular Hemoglobin Concent 33 g/dL (31-37) 34 g/dL (31-37) Red Cell Distribution Width 15.2 % (11.5-14.5) 14.8 % (11.5-14.5) Platelet Count 81 x10^3/uL (140-400) 82 x10^3/uL (140-400) Neutrophils (%) (Auto) 78 % (31-73) 65 % (31-73) Lymphocytes (%) (Auto) 13 % (24-48) 24 % (24-48) Monocytes (%) (Auto) 7 % (0-9) 7 % (0-9) Eosinophils (%) (Auto) 2 % (0-3) 3 % (0-3) Basophils (%) (Auto) 0 % (0-3) 1 % (0-3) Neutrophils # (Auto) 7.8 x10^3/uL (1.8-7.7) 4.8 x10^3/uL (1.8-7.7) Lymphocytes # (Auto) 1.3 x10^3/uL (1.0-4.8) 1.8 x10^3/uL (1.0-4.8) Monocytes # (Auto) 0.7 x10^3/uL (0.0-1.1) 0.5 x10^3/uL (0.0-1.1) Eosinophils # (Auto) 0.2 x10^3/uL (0.0-0.7) 0.3 x10^3/uL (0.0-0.7) Basophils # (Auto) 0.0 x10^3/uL (0.0-0.2) 0.0 x10^3/uL (0.0-0.2) Prothrombin Time 12.9 SEC (11.7-14.0) Prothromb Time International Ratio 1.0 (0.8-1.1) D-Dimer (Day) 4.95 ug/mlFEU (0.00-0.50) Sodium Level 138 mmol/L (136-145) 138 mmol/L (136-145) Potassium Level 4.7 mmol/L (3.5-5.1) 4.3 mmol/L (3.5-5.1) Chloride Level 100 mmol/L (98-107) 100 mmol/L (98-107) Carbon Dioxide Level 28 mmol/L (21-32) 30 mmol/L (21-32) Anion Gap 10 (6-14) 8 (6-14) Blood Urea Nitrogen 45 mg/dL (7-20) 59 mg/dL (7-20) Creatinine 4.2 mg/dL (0.6-1.0) 4.8 mg/dL (0.6-1.0) Estimated GFR (Cockcroft-Gault) 10.6 9.1 BUN/Creatinine Ratio 11 (6-20) Glucose Level 118 mg/dL (70-99) 126 mg/dL (70-99) Calcium Level 8.8 mg/dL (8.5-10.1) 8.7 mg/dL (8.5-10.1) Total Bilirubin 0.6 mg/dL (0.2-1.0) Aspartate Amino Transf (AST/SGOT) 13 U/L (15-37) Alanine Aminotransferase (ALT/SGPT) 11 U/L (14-59) Alkaline Phosphatase 114 U/L (46-116) Troponin I Quantitative 0.024 ng/mL (0.000-0.055) 0.018 ng/mL (0.000-0.055) FH-Cev-F-Type Natriuretic Peptide > 05647 pg/mL (0-124) Total Protein 8.3 g/dL (6.4-8.2) Albumin 3.4 g/dL (3.4-5.0) Albumin/Globulin Ratio 0.7 (1.0-1.7) Glucose (Fingerstick) 156 mg/dL (70-99) Test 06/26/19 07:51 Glucose (Fingerstick) 127 mg/dL (70-99) Review All relevant outside records, renal labs, imaging studies, telemetry/EKG's were reviewed. Images Images Impression: 1. Hazy and patchy bilateral pulmonary opacities, can be seen with pulmonary edema. 2. Small bilateral pleural effusions, unchanged. JEROME SILVA MD Jun 26, 2019 11:21
[2019-06-26] MEDS ORDERED: FUROSEMIDE 40 MG/4 ML VIAL. IVP ONE (11:45)
--- NOTE | 2019-06-26 11:45 | NUR ---
SS following for discharge planning. SS reviewed pt chart. Pt is from home with spouse and is currently on room air. Pt has home oxygen at home. Pt is currently on dialysis at [facility] SS will continue to follow for discharge planning.
[2019-06-26] MEDS ORDERED: IV NORMAL SALINE 1000ML BAG 1,000 ML IV PRN ×2 (11:47)
[2019-06-26] MEDS ORDERED: ACETAMINOPHEN 500 MG TABLET PO PRN (12:00)
[2019-06-26] MEDS ORDERED: diphenhydrAMINE 50 MG/ML VIAL IV PRN ×2 (12:00)
[2019-06-26] MEDS ORDERED: DIALYSIS PATIENT. MC PRN ×2 (12:00)
[2019-06-26] MEDS ORDERED: ALBUMIN HUMAN 25% 200 ML IV PRN (12:00)
[2019-06-26] MEDS ORDERED: LIDOCAINE 1% PF 2 ML VIAL. INJ ONE (12:00)
--- NOTE | 2019-06-26 12:45 | CARD ---
MR#: [id number] Date of Study: 06/26/2019 Ordering Physician: Bala PENG, Referring Physician: Bala PENG, Tech: Deepali Kiser APPROVED REPORT EXAM: Two-dimensional and M-mode echocardiogram with Doppler and color Doppler. Other Information Quality : AverageHR: 129bpm Technically limited study due to body habitus and breathing INDICATION COPD Dyspnea Cardiac Disease: CAD Congestive Heart Failure Pulmonary Edema, Sepsis RISK FACTORS Diabetes 2D DIMENSIONS RVDd3.2 (2.9-3.5cm)Left Atrium(2D)4.6 (1.6-4.0cm) IVSd1.0 (0.7-1.1cm)Aortic Root(2D)3.4 (2.0-3.7cm) LVDd6.6 (3.9-5.9cm)LVOT Diameter2.2 (1.8-2.4cm) PWd1.5 (0.7-1.1cm)LVDs4.9 (2.5-4.0cm) FS (%) 25.4 %SV109.0 ml LVEF(%)48.9 (>50%) Aortic Valve AoV Peak Dylan.181.6cm/sAoV VTI40.7cm AO Peak GR.13.2mmHgLVOT VTI 13.62cm AO Mean GR.8mmHgAI P 1/2 Qqra249ng Mitral Valve MV E Vowkuzld614.6cm/sMV DECEL [id number] MV A Hypfrepg89.0cm/sE/A Ratio1.2 TDI Lateral E' P. V4.24cm/sMedial E' P. V4.13cm/s E/Lateral E'25.8E/Medial E'26.5 Tricuspid Valve TR P. Fsgtcqnb486ca/sRAP LFTJMMCC84idZx TR Peak Gr.02irWyUHQT83jrPc Pulmonary Vein S1 Yqvkpidp31.7cm/sS2 Pzpjjzkv63.00cm/s D2 Abgwchek48.0cm/s LEFT VENTRICLE The Left Ventricle is moderately dilated. There is mild to moderate concentric left ventricular hyper trophy. The systolic function is severely impaired. The Ejection Fraction is 10-15% There is global h ypokinesis of the left ventricle. Tissue Doppler imaging reveals severe left ventricular diastolic dy sfunction. No left ventricle thrombus noted on this study. RIGHT VENTRICLE The right ventricle is borderline dilated. There is normal right ventricular wall thickness. The righ t ventricular systolic function is normal. There is a pacemaker lead in the right ventricle. ATRIA The left atrium is moderately dilated. The right atrium is mildly dilated. There is a pacemaker lead seen in the right atrium. The interatrial septum is intact with no evidence for an atrial septal defe ct or patent foramen ovale as noted on 2-D or Doppler imaging. AORTIC VALVE The aortic valve is calcified and displays decreased opening. Cannot rule out severe low flow, low gr adient Doppler and Color Flow revealed trace aortic regurgitation. There is no significant aortic valvular stenosis. MITRAL VALVE The mitral valve is thickened but opens well. There is no evidence of mitral valve prolapse. There is no mitral valve stenosis. Doppler and Color-flow revealed trace mitral regurgitation. TRICUSPID VALVE The tricuspid valve is normal in structure and function. Doppler and Color Flow revealed trace tricus pid regurgitation with an estimated PAP of 60 mmHg. There is moderate pulmonary hypertension. There i s no tricuspid valve prolapse or vegetation. There is no tricuspid valve stenosis. PULMONIC VALVE The pulmonic valve is not well visualized. Doppler and Color Flow revealed trace pulmonic valvular re gurgitation. There is no pulmonic valvular stenosis. GREAT VESSELS The aortic root is normal in size. The IVC is dilated and collapses <50% with inspiration. PERICARDIAL EFFUSION There is no evidence of significant pericardial effusion. Critical Notification Critical Value: No <Conclusion> The systolic function is severely impaired. The Ejection Fraction is 10-15% There is global hypokinesis of the left ventricle. There is a pacemaker lead in the right ventricle. The aortic valve is calcified and displays decreased opening. Cannot rule out severe low flow, low gr adient Doppler and Color Flow revealed trace tricuspid regurgitation with an estimated PAP of 60 mmHg. There is moderate pulmonary hypertension. The IVC is dilated and collapses <50% with inspiration. Signed by : Grover Solitario, Electronically Approved : 06/26/2019 12:45:44
--- NOTE | 2019-06-26 12:56 | PDOC ---
PROGRESS NOTES Subjective No overnight issues,slept well, not feeling SOA, anticipating dialysis today, not much UO overnight Objective Afebrile General: NAD Neck: no JVD Heart: RRR, monitor unremarkable Lungs: no wheezes or crackles Abd: obese, soft and non tender Ext: no lesions Vital Signs Vital Signs Date Time Temp Pulse Resp B/P (MAP) Pulse Ox O2 Delivery O2 Flow Rate FiO2 06/26/19 12:00 96 Nasal Cannula 3.0 06/26/19 11:00 97.9 69 20 134/64 (87) 97.9 I & O Intake and Output 06/26/19 07:00 Intake Total 1380 ml Output Total 200 ml Balance 1180 ml Intake Oral 1380 ml Output Urine Total 200 ml # Voids 3 Assessment and Plan acute hypoxic respiratory failure - O2 acute on chronic diastolic heart failure - IV lasix ineffective so far - check echo, consult cardiology ESRD on dialysis - consult renal, routine dialysis is M-W- but she did not complete the past 2 times, extra dialysis today hx of PE - elevated d-dimer, V/Q scan low probability cardiomyopathy with AICD - time for interrogation type 2 diabetes with nephropathy, retinopathy, neuropathy - SSI insulin Tristan PENG MD Jun 26, 2019 12:56
[2019-06-26 19:15] VITALS: BP 117/54
[2019-06-26] MEDS: ATORVASTATIN CALCIUM 10 MG TABLET. PO SCH (20:17)
[2019-06-26 22:23] VITALS: BP_SYST 124; BP_SYST 98; BP_DIAS 48; BP_DIAS 60
[2019-06-27 03:02] VITALS: BP 97/56
[2019-06-27 07:21] VITALS: BP 108/35
[2019-06-27] MEDS: INSULIN LISPRO 300 UNITS/3 ML VIAL. SQ SCH ×2 (07:43→12:00)
[2019-06-27] MEDS: ALBUTEROL SULFATE 2.5 MG/3 ML NEBU. NEB SCH ×2 (07:56→11:48)
[2019-06-27] MEDS: LEVOTHYROXINE 150 MCG TABLET PO SCH (08:31)
[2019-06-27] MEDS: APIXABAN 5 MG TABLET. PO SCH (08:31)
--- NOTE | 2019-06-27 09:02 | PDOC ---
SAM SEARS AUTOMATION ENGINEERING TECHNICIAN 06/27/19 0902: CARDIO Progress Notes Date and Time Date of Service 06/27/2019 Time of Evaluation 0850 Subjective Subjective: No Chest Pain, No shortness of breath, No Palpitations, Other (feels better now, wants to go home explaining her granddaughters birthday alliance party tomorrow) Vitals Vitals Vital Signs Date Time Temp Pulse Resp B/P (MAP) Pulse Ox O2 Delivery O2 Flow Rate FiO2 06/27/19 08:00 Nasal Cannula 3.0 06/27/19 07:57 94 06/27/19 07:21 97.5 61 18 108/35 (59) 97.5 Weight Weight [ ] Input and Output Intake and Output Intake and Output 06/27/19 07:00 Intake Total 2140 ml Output Total 350 ml Balance 1790 ml Intake Oral 2140 ml Output Urine Total 350 ml Laboratory Labs Laboratory Tests Test 06/26/19 11:45 06/26/19 17:27 06/26/19 21:08 06/27/19 07:28 Glucose (Fingerstick) 138 mg/dL (70-99) 93 mg/dL (70-99) 155 mg/dL (70-99) 144 mg/dL (70-99) Physical Exam HEENT: Neck Supple W Full Motion Chest: Symmetric LUNGS: Clear to Auscultation Heart: S1S2, RRR (sr) Abdomen: Soft N/T Extremities: Other (LBKA, RLE trace edema) Neurology: alert, oriented, follow commands Assessment Assessment 1. Acute respiratory failure secondary to acute CHF: compensated 2. Acute on chronic systolic CHF: compensated 3. ICM s/p AICD (Biotronik); LVEF 10-15%.Compensated. normal device functioning DDD AFIB burden 0 RV pacing 0. 80% battery life 4. CAD; s/p PCI/LUX to proximal ramus 08/2016. cath earlier this year without intervention as noted above 5. Hypertension; controlled 6. Hyperlipidemia; lipids on goal 6. Diabetes, II 8. ESRD on HD 9. H/o PE; on Eliquis Recommendations 1. Fluid off loading with HD, HD planned for today 2. Continue secondary prevention measures 3. Will consider for outpt RHC 4. Continue toprol, and low dose lisinopril. LAURA RIVERA MD 06/27/19 1512: CARDIO Progress Notes Plan Plan Patient seen and examined. Agree with above nurse practitioner note. She feels much better today. She continues to have ischemic cardio myopathy with recurrent heart failure symptoms. Plan for a right left heart catheterization on an outpatient basis for further assessment of her aortic valve is well. SAM SEARS APRN Jun 27, 2019 09:02 LAURA RIVERA MD Jun 27, 2019 15:12
[2019-06-27 10:22] VITALS: BP 103/48
[2019-06-27] MEDS: ANTI-COAG MONITOR BY PHARMACY. MC PRN ×3 (11:47→12:26)
[2019-06-27 12:04] VITALS: BP 103/48
[2019-06-27] MEDS: LISINOPRIL 5 MG TABLET. PO SCH (12:04)
[2019-06-27] MEDS: METOPROLOL SUCC 24HR ER 25 MG TAB.ER.24H. PO SCH (12:04)
--- NOTE | 2019-06-27 13:15 | PDOC ---
SUBJECTIVE ROS Pt Refused HD today ,yest while on HD she stated that she has chronic Cramps in her legs even on her Non Dialysis days OBJECTIVE Vital Signs Vital Signs Date Time Temp Pulse Resp B/P (MAP) Pulse Ox O2 Delivery O2 Flow Rate FiO2 06/27/19 12:04 60 103/48 06/27/19 11:49 94 Nasal Cannula 3.0 06/27/19 10:22 97.4 18 97.4 I & 0 Intake and Output 06/27/19 07:00 Intake Total 2140 ml Output Total 350 ml Balance 1790 ml Intake Oral 2140 ml Output Urine Total 350 ml PHYSICAL EXAM Physical Exam GEN.: No apparent distress.morbidly obese HEENT: OM moist NECK: Supple. LUNGS: Clear to auscultation. HEART: RRR, S1, S2 present. ABDOMEN: Soft, Obese EXTREMITIES: trace edema NEUROLOGIC: AxO x3 PSYCHIATRIC: Normal affect, normal mood. SKIN: No Rash No Tai DIAGNOSIS/ASSESSMENT Assessment & Plan End-stage renal disease secondary to diabetic nephropathy On HD MWF, dialyzed yesterday for UF Scheduled HD today today- Pt refusing Dyspnea - Hx of chronic obstructive pulmonary disease, smoker Anemia- mild. stable, [place] per protocol for Hg <10 CHF- severe systolic Pt refused hD today, Per cardiology CAD- asymptomatic. DM2-per primary Thrombocytopenia- Defer to primary Hx of pulmonary embolism- on eliquis 5mg BID COMMENT/RELEVANT DATA Meds Current Medications Medications (Trade) Dose Ordered Sig/Slick Start Time Stop Time Status Last Admin Dose Admin Acetaminophen (Tylenol) 500 mg 1X PRN PRN 06/26/19 12:00 06/27/19 11:59 DC 06/26/19 22:34 500 MG Albumin Human 200 ml @ 200 mls/hr 1X PRN PRN 06/26/19 12:00 06/26/19 17:59 DC Albuterol Sulfate (Ventolin Neb Soln) 2.5 mg RTQID 06/25/19 16:00 06/27/19 11:48 2.5 MG Albuterol/ Ipratropium (Duoneb) 3 ml 1X ONCE 06/25/19 14:15 06/25/19 14:16 DC 06/25/19 14:24 3 ML Apixaban (Eliquis) 5 mg BID 06/25/19 21:00 06/27/19 08:31 5 MG Aspirin (Children'S Aspirin) 324 mg 1X ONCE 06/25/19 15:00 06/25/19 15:01 DC 06/25/19 15:00 324 MG Atorvastatin Calcium (Lipitor) 10 mg QHS 06/25/19 21:00 06/26/19 20:17 10 MG Dextrose (Dextrose 50%-Water Syringe) 12.5 gm PRN Q15MIN PRN 06/25/19 17:45 Diphenhydramine HCl (Benadryl) 25 mg 1X PRN PRN 06/26/19 12:00 06/27/19 11:59 DC Furosemide (Lasix) 40 mg 1X ONCE 06/26/19 11:45 06/26/19 11:48 DC Info (Anti-Coagulation Monitoring By Pharmacy) 1 each PRN DAILY PRN 06/25/19 15:45 06/27/19 12:26 1 EACH Info (PHARMACY MONITORING -- do not chart) 1 each PRN DAILY PRN 06/26/19 12:00 Insulin Human Lispro (HumaLOG) 0-5 UNITS TIDWMEALS 06/26/19 08:00 Levothyroxine Sodium (Synthroid) 175 mcg DAILYAC 06/26/19 07:30 06/27/19 08:31 175 MCG Lidocaine HCl (Xylocaine-Mpf 1% 2ml Vial) 2 ml 1X ONCE 06/26/19 12:00 06/26/19 12:01 DC Lisinopril (Prinivil) 2.5 mg DAILY 06/25/19 09:00 06/27/19 12:04 2.5 MG Metoprolol Succinate (Toprol Xl) 25 mg DAILY 06/26/19 09:00 06/27/19 12:04 25 MG Sodium Chloride 1,000 ml @ 400 mls/hr Q2H30M PRN 06/26/19 11:47 06/26/19 23:46 DC Lab Laboratory Tests Test 06/26/19 17:27 06/26/19 21:08 06/27/19 07:28 06/27/19 11:22 Glucose (Fingerstick) 93 mg/dL (70-99) 155 mg/dL (70-99) 144 mg/dL (70-99) 104 mg/dL (70-99) Results All relevant outside records, renal labs, imaging studies, telemetry/EKG's were reviewed. JEROME SILVA MD Jun 27, 2019 13:15
--- NOTE | 2019-06-27 14:00 | NUR ---
Discharge instructions reviewed with patient, patient verbalizes understanding. Will be picked by daughter.
--- NOTE | 2019-06-27 16:44 | PDOC3 ---
Discharge Summary [facility] Date of Admission: Jun 25, 2019 Discharge Date: Jun 27, 2019 Admitting Diagnosis pulmonary edema, acute respiratory failure Final Diagnosis acute respiratory failure due to acute on chronic diastolic heart failure ESRD on dialysis CONSULTS Renal, Cardiology Procedures hemodialysis Brief Hospital Course Ms. Hercules is a 68 old who presented with: acute hypoxic respiratory failure due to acute on chronic diastolic heart failure - IV lasix ineffective - echo, consulted cardiology - additional w/u as op ESRD on dialysis - consult renal, routine dialysis is -- but she did not complete the past 2 times, extra dialysis yesterday took off 4 liters of fluid and caused cramping, she is refusing dialysis today hx of PE - elevated d-dimer, V/Q scan low probability cardiomyopathy with AICD - time for interrogation, f/u with cardiology as OP type 2 diabetes with nephropathy, retinopathy, neuropathy - not needing insulin Patient History: FH: COPD (chronic obstructive pulmonary disease) G8 BROTHER 32 MOTHER FH: back pain 33 FATHER G8 SISTER FH: cancer Family history: Cardiovascular disease (situation) G8 BROTHER Family history: Diabetes mellitus (situation) G8 BROTHER 32 MOTHER Disposition home CONDITION AT DISCHARGE: Improved, Stable Diet renal Scheduled Albuterol Sulfate (Albuterol Sulfate Neb Soln), 2.5 MG NEB RTQID Apixaban (Eliquis), 5 MG PO BID Atorvastatin Calcium (Atorvastatin Calcium), 10 MG PO QHS Levothyroxine Sodium (Levothyroxine Sodium), 175 MCG PO DAILYAC, (Reported) Lisinopril (Lisinopril), 2.5 MG PO DAILY Metoprolol Succinate (Metoprolol Succinate ( Xl )), 25 MG PO DAILY Follow Up 1-2 weeks with me, cardiology will arrange OP testing, she will continue routine dialysis but her next one is Sunday and she will likely need 4 liters removed again and have cramping. She has a granddaughters birthday republican tomorrow that she will not miss Tristan PENG MD Jun 27, 2019 16:43
[2019-06-27] MEDS ORDERED: ATORVASTATIN CALCIUM 10 MG TABLET. PO SCH (21:00)
== END 2019-06-27 14:45 | disposition home or self-care (01) | DRG 291 ==
LOC: ER 12:57 → 2 NORTH 14:40
PROVIDERS: ADMIT Family Medicine; ATTEND Family Medicine
PROC: 5A1D70Z Performance of Urinary Filtration, Intermittent, Less than 6 Hours Per Day (ICD-10-PCS; principal; 2019-06-25)
DX: I13.2 Hypertensive heart and chronic kidney disease with heart failure and with stage 5 chronic kidney disease, or end stage renal disease (principal); J96.01 Acute respiratory failure with hypoxia; I50.43 Acute on chronic combined systolic (congestive) and diastolic (congestive) heart failure; N18.6 End stage renal disease; I42.9 Cardiomyopathy, unspecified; E03.9 Hypothyroidism, unspecified; E11.21 Type 2 diabetes mellitus with diabetic nephropathy; E11.22 Type 2 diabetes mellitus with diabetic chronic kidney disease; E11.319 Type 2 diabetes mellitus with unspecified diabetic retinopathy without macular edema; E11.40 Type 2 diabetes mellitus with diabetic neuropathy, unspecified; E11.65 Type 2 diabetes mellitus with hyperglycemia; E78.5 Hyperlipidemia, unspecified; F32.9 Major depressive disorder, single episode, unspecified; F41.9 Anxiety disorder, unspecified; M19.90 Unspecified osteoarthritis, unspecified site; F17.210 Nicotine dependence, cigarettes, uncomplicated; I25.10 Atherosclerotic heart disease of native coronary artery without angina pectoris; I48.91 Unspecified atrial fibrillation; J44.9 Chronic obstructive pulmonary disease, unspecified; K21.9 Gastro-esophageal reflux disease without esophagitis; M19.019 Primary osteoarthritis, unspecified shoulder; E21.3 Hyperparathyroidism, unspecified; Z82.49 Family history of ischemic heart disease and other diseases of the circulatory system; Z82.5 Family history of asthma and other chronic lower respiratory diseases; Z83.3 Family history of diabetes mellitus; Z86.711 Personal history of pulmonary embolism; Z86.74 Personal history of sudden cardiac arrest; Z89.512 Acquired absence of left leg below knee; Z91.15 Patient's noncompliance with renal dialysis; Z95.5 Presence of coronary angioplasty implant and graft; Z95.810 Presence of automatic (implantable) cardiac defibrillator; Z99.2 Dependence on renal dialysis
CPT/HCPCS: 36415; 71045; 78582; 80048; 80053; 82962; 83880; 84484; 85025; 85379; 85610; 87641; 93005; 93306; 94640; 96374; 99406; A9540; A9558; J1940; J7613; J7620; 99285-25; G0378

== ENCOUNTER → 2019-07-17 | Outpatient (CLI) | payer BC, OTHER ==
[~2019-07-17] VITALS: Ht 162.6 cm; Wt 90.7 kg
[~2019-07-17] MED LIST changes: +HEPARIN for IV BOLUS 10,000 UNIT/10 ML VIAL. IART ONE; +HEPARIN for IV BOLUS 10,000 UNIT/10 ML VIAL. IV ONE; +HEPARIN for IV BOLUS 10,000 UNIT/10 ML VIAL. ONE; +IOHEXOL 300 MG/ML 100ML VIAL. IART ONE; +IOHEXOL 300 MG/ML 100ML VIAL. ONE; +LIDOCAINE 1% Multi-Dose 20 ML VIAL. ONE; +LIDOCAINE 2% 20 ML VIAL. IJ ONE; +MIDAZOLAM HCL/PF 2 MG/2 ML VIAL. IV ONE; +MIDAZOLAM HCL/PF 2 MG/2 ML VIAL. ONE; +NITROGLYCERIN 200 MCG/2 ML SYRINGE FOR CATH/VASC LAB. IART ONE; +NITROGLYCERIN 200 MCG/2 ML SYRINGE FOR CATH/VASC LAB. ONE; +VERAPAMIL 5 MG/2 ML VIAL. IART ONE; +VERAPAMIL 5 MG/2 ML VIAL. ONE; +fentaNYL PF VIAL 100 MCG/2 ML VIAL IV ONE; +fentaNYL PF VIAL 100 MCG/2 ML VIAL ONE
[2019-07-17 08:56] LABS: HEMATOCRIT 35.8 % (36.0-47.0); HEMOGLOBIN 11.8 g/dL (12.0-15.5); RED BLOOD COUNT 3.49 x10^6/uL (3.50-5.40); RED CELL DISTRIBUTION WIDTH 15.2 % (11.5-14.5); WHITE BLOOD COUNT 8.6 x10^3/uL (4.0-11.0)
[2019-07-17 09:06] LABS: PROTHROMBIN TIME PATIENT 13.9 SEC (11.7-14.0)
[2019-07-17 09:13] LABS: CALCIUM 8.4 mg/dL (8.5-10.1); CREATININE 4.1 mg/dL (0.6-1.0); GFR 10.9; POTASSIUM 4.1 mmol/L (3.5-5.1)
[2019-07-17 09:58] VITALS: BP 113/46
[2019-07-17 11:51] VITALS: BP 123/42
[2019-07-17 12:15] VITALS: BP 116/54
--- NOTE | 2019-07-17 12:39 | NUR ---
Pt. has left upper arm fistula, unable to complete blood pressures in left arm. Pt has a left aka. Pt c/o cramping in right leg. Pt has TR band on right wrist. Per necessity monitoring bp in right lower leg; per patient request monitoring bp Q30min. Pt educated on need to take more frequently; especially if need or concern for safety arise.
[2019-07-17 13:00] VITALS: BP 93/72
--- NOTE | 2019-07-17 14:19 | CARD ---
MR#: [id number] Date of Study: 07/17/2019 Ordering Physician: GROVER SOLITARIO, Referring Physician: GROVER SOLITARIO, Tech: RAEGAN MULLIGAN RTR APPROVED REPORT Technologist: RAEGAN MULLIGAN RTR Nurse: ROME BILLINGS RN Procedure(s) performed: MODERATE SEDATION TIME: 50 MINUTES FLUORO TIME: 5.2 MIN DOSE: 43 GYCM2 CONTRAST: 30 ML LHC, Coronary angiography HISTORY The patient is a 68 year-old female with a history of : renal failure with dialysis, coronary artery disease. INDICATION The indication(s) include : dyspnea. [facility] Clinical Frailty Scale [facility] Clinical Frailty Scale: Severely Frail Heart Failure Heart Failure: Yes If Yes, Newly Diagnosed: No If Yes, HF Type: Diastolic Systolic If Yes, NYHA Class: Class III PROCEDURE NARRATIVE INFORMED CONSENT: After explaining the risks and benefits of the procedure and alternatives, informed consent was obtained. The patient was brought electively to the cardiac catheterization lab. A timeout was performed confi rming the patient's name, date of , procedure, and site of procedure. All necessary personnel w ere wearing the appropriate protective equipment and radiation monitor devices. (See nursing notes for medications administered). ACCESS: The right wrist was sterilely prepped and draped in the usual fashion. The right wrist was infiltrat ed with 1 mL of 2% lidocaine for subcutaneous anesthesia. A 6 Kinyarwanda Terumo glide sheath was unable to be advanced past the hub. A 4Fr JR4 catheter was also unable to be advanced past the mid forearm. Due to difficulty with radial access, a right groin approach was selected. Under lidocaine local anes thesia, a 4 Fr sheath was inserted in the RCFA. CORONARY ANGIOGRAPHY: Right and left coronary angiography was performed using a 4Fr JL4 and JR4 catheters. Left ventricul ar end diastolic pressure was obtained with a pigtail catheter and pullback was performed after left ventriculography. All catheter exchanges and advancements were performed over a guidewire. CLOSURE: At case completion the right radial sheath was removed and a Terumo radial band was applied with 13 m l of air. COMPLICATIONS: The patient tolerated the procedure well and there were no immediate complications. FINDINGS: HEMODYNAMICS: LVEDP 15 mm Hg No gradient on LV to aortic pullback. AO: 128/78 LEFT VENTRICULOGRAM: Deferred due to known EF of 25%. CORONARY ANGIOGRAPHY: LM is a large caliber vessel with normal angiographic appearance. LAD is a large caliber vessel with mild diffuse irregularities. Ramus is a largecaliber vessel with normal angiographic apeparance. LCx is a moderate caliber non-dominant vessel with moderate diffuse disease of up to 40%. RCA is a small caliber dominant vessel with an ostial occlusion. The distal vessel is seen to fill vi a robust left to right collaterals. Conclusion 1. Acute on chronic decompensated systolic and diastolic HF. LVEDP 19 mm Hg 2. One vessel CAD without significant changes to the burden of CAD. Recommendations Aggressive medical therapy. Signed by : Grover Solitario, Electronically Approved : 07/17/2019 14:19:10
--- NOTE | 2019-07-17 14:54 | NUR ---
Discharge instructions and discharge home medications reviewed with Patient and a copy given. All questions have been answered and understanding verbalized. The following instructions and handouts were given on moderate sedation, radial and groin site care. Discontinued PIV. Patient discharged to home with self care accompanied by her colleener.
== END ==
LOC: CCL 08:32
PROVIDERS: ATTEND Internal Medicine Cardiovascular Disease
DX: R06.00 Dyspnea, unspecified (principal); I25.10 Atherosclerotic heart disease of native coronary artery without angina pectoris
CPT/HCPCS: 36415; 80048; 85027; 85610; 93458; 99152; 99153; C1769; C1892; J1644; J2001; J2250; J3010; J3490; Q9967

== ENCOUNTER 2019-08-14 17:50 | Emergency (ER) | payer BC, OTHER ==
[~2019-08-14] VITALS: Ht 165.1 cm; Wt 90.7 kg
[~2019-08-14 17:50] MED LIST changes: -HEPARIN for IV BOLUS 10,000 UNIT/10 ML VIAL. IART ONE; -HEPARIN for IV BOLUS 10,000 UNIT/10 ML VIAL. IV ONE; -HEPARIN for IV BOLUS 10,000 UNIT/10 ML VIAL. ONE; -IOHEXOL 300 MG/ML 100ML VIAL. IART ONE; -IOHEXOL 300 MG/ML 100ML VIAL. ONE; -LIDOCAINE 1% Multi-Dose 20 ML VIAL. ONE; -LIDOCAINE 2% 20 ML VIAL. IJ ONE; -MIDAZOLAM HCL/PF 2 MG/2 ML VIAL. IV ONE; -MIDAZOLAM HCL/PF 2 MG/2 ML VIAL. ONE; -NITROGLYCERIN 200 MCG/2 ML SYRINGE FOR CATH/VASC LAB. IART ONE; -NITROGLYCERIN 200 MCG/2 ML SYRINGE FOR CATH/VASC LAB. ONE; -VERAPAMIL 5 MG/2 ML VIAL. IART ONE; -VERAPAMIL 5 MG/2 ML VIAL. ONE; -fentaNYL PF VIAL 100 MCG/2 ML VIAL IV ONE; -fentaNYL PF VIAL 100 MCG/2 ML VIAL ONE
--- NOTE | 2019-08-14 18:19 | PHYS DOC ---
Past Medical History Past Medical History: CAD, CHF, COPD, Diabetes-Type II, Renal Failure, Vascular Disease Additional Past Medical Histor: CARDIAC ARREST (OZ FISHMAN APRN) Past Surgical History: Cholecystectomy, , Pacemaker, Tubal ligation Additional Past Surgical Histo: AICD, VASCULAR STENTS, CARDIAC STENTS, CADAVER ARTERY, LEFT BKA (OZ FISHMAN APRN) Alcohol Use: None Drug Use: None (OZ FISHMAN APRN) Attending Signature I have participated in the care of this patient and I have reviewed and agree with all pertinent clinical information above including history, exam, and recommendations. (DAVID DOWELL MD) Adult General Chief Complaint Chief Complaint: UPPER EXTREMITY SWELLING HPI HPI Patient is a 69 year old Female who presents with her last week she has had tenderness and pain to the lateral left arm up into the shoulder. She has a fistula for dialysis in that left arm. Patient states for the last 3 days she has noticed arm is becoming more swollen and she's got tenderness going down the lateral out of arm into the forearm now. Patient states his skin is also frank ining a red color now. She denies any numbness or tingling. Patient states she gets dialysis Sunday and Sunday (OZ FISHMAN APRN) Review of Systems Review of Systems Musculoskeletal: Left lateral arm pain and swelling. Denies back pain or joint pain [] Integument:Left arm redness. Denies rash or skin lesions [] All other systems were reviewed and found to be within normal limits, except as documented in this note. (OZ FISHMAN APRN) Allergies Allergies Allergies Coded Allergies Type Severity Reaction Last Updated Verified No Known Medication Allergies Allergy Unknown 07/23/18 Yes (DAVID DOWELL MD) Physical Exam Physical Exam Constitutional: Well developed, well nourished, no acute distress, non-toxic appearance. [] HENT: Normocephalic, atraumatic, bilateral external ears normal, oropharynx moist, no oral exudates, nose normal. [] Eyes: PERRLA, EOMI, conjunctiva normal, no discharge. [] Cardiovascular:Heart rate regular rhythm, no murmur [] Lungs & Thorax: Bilateral breath sounds clear to auscultation [] Skin: Left arm red/ purple, Warm, dry, erythema, no rash. [] Extremities: Left lateral arm tenderness, no cyanosis, no clubbing, ROM intact, 2+ edema. [] Neurologic: Alert and oriented X 3, normal motor function, normal sensory function, no focal deficits noted. [] Psychologic: Affect normal, judgement normal, mood normal. [] (KYEOZROSE Lugo APRN) Current Patient Data Vital Signs Vital Signs Date Time Temp Pulse Resp B/P (MAP) Pulse Ox O2 Delivery O2 Flow Rate FiO2 08/14/19 21:32 24 24 129/59 (82) 100 Nasal Cannula 3.0 08/14/19 17:58 97.8 97.8 (DAVID DOWELL MD) Lab Values Laboratory Tests Test 08/14/19 18:27 08/14/19 19:30 White Blood Count 7.6 x10^3/uL (4.0-11.0) Red Blood Count 3.38 x10^6/uL (3.50-5.40) L Hemoglobin 11.7 g/dL (12.0-15.5) L Hematocrit 34.8 % (36.0-47.0) L Mean Corpuscular Volume 103 fL (79-100) H Mean Corpuscular Hemoglobin 34 pg (25-35) Mean Corpuscular Hemoglobin Concent 34 g/dL (31-37) Red Cell Distribution Width 15.5 % (11.5-14.5) H Platelet Count 110 x10^3/uL (140-400) L Neutrophils (%) (Auto) 68 % (31-73) Lymphocytes (%) (Auto) 22 % (24-48) L Monocytes (%) (Auto) 7 % (0-9) Eosinophils (%) (Auto) 2 % (0-3) Basophils (%) (Auto) 1 % (0-3) Neutrophils # (Auto) 5.2 x10^3/uL (1.8-7.7) Lymphocytes # (Auto) 1.7 x10^3/uL (1.0-4.8) Monocytes # (Auto) 0.5 x10^3/uL (0.0-1.1) Eosinophils # (Auto) 0.2 x10^3/uL (0.0-0.7) Basophils # (Auto) 0.1 x10^3/uL (0.0-0.2) Prothrombin Time 14.1 SEC (11.7-14.0) H Prothrombin Time INR 1.1 (0.8-1.1) Sodium Level 136 mmol/L (136-145) Potassium Level 4.0 mmol/L (3.5-5.1) Chloride Level 97 mmol/L (98-107) L Carbon Dioxide Level 29 mmol/L (21-32) Anion Gap 10 (6-14) Blood Urea Nitrogen 49 mg/dL (7-20) H Creatinine 4.9 mg/dL (0.6-1.0) H Estimated GFR (Cockcroft-Gault) 8.8 BUN/Creatinine Ratio 10 (6-20) Glucose Level 101 mg/dL (70-99) H Calcium Level 8.5 mg/dL (8.5-10.1) Total Bilirubin 0.4 mg/dL (0.2-1.0) Aspartate Amino Transferase (AST) 13 U/L (15-37) L Alanine Aminotransferase (ALT) < 6 U/L (14-59) L Alkaline Phosphatase 67 U/L (46-116) Total Protein 7.7 g/dL (6.4-8.2) Albumin 3.3 g/dL (3.4-5.0) L Albumin/Globulin Ratio 0.8 (1.0-1.7) L Laboratory Tests 08/14/19 18:27 Laboratory Tests 08/14/19 19:30 (DAVID DOWELL MD) Lab Values Laboratory Tests Test 08/14/19 18:27 08/14/19 19:30 White Blood Count 7.6 x10^3/uL (4.0-11.0) Red Blood Count 3.38 x10^6/uL (3.50-5.40) L Hemoglobin 11.7 g/dL (12.0-15.5) L Hematocrit 34.8 % (36.0-47.0) L Mean Corpuscular Volume 103 fL (79-100) H Mean Corpuscular Hemoglobin 34 pg (25-35) Mean Corpuscular Hemoglobin Concent 34 g/dL (31-37) Red Cell Distribution Width 15.5 % (11.5-14.5) H Platelet Count 110 x10^3/uL (140-400) L Neutrophils (%) (Auto) 68 % (31-73) Lymphocytes (%) (Auto) 22 % (24-48) L Monocytes (%) (Auto) 7 % (0-9) Eosinophils (%) (Auto) 2 % (0-3) Basophils (%) (Auto) 1 % (0-3) Neutrophils # (Auto) 5.2 x10^3/uL (1.8-7.7) Lymphocytes # (Auto) 1.7 x10^3/uL (1.0-4.8) Monocytes # (Auto) 0.5 x10^3/uL (0.0-1.1) Eosinophils # (Auto) 0.2 x10^3/uL (0.0-0.7) Basophils # (Auto) 0.1 x10^3/uL (0.0-0.2) Prothrombin Time 14.1 SEC (11.7-14.0) H Prothrombin Time INR 1.1 (0.8-1.1) Sodium Level 136 mmol/L (136-145) Potassium Level 4.0 mmol/L (3.5-5.1) Chloride Level 97 mmol/L (98-107) L Carbon Dioxide Level 29 mmol/L (21-32) Anion Gap 10 (6-14) Blood Urea Nitrogen 49 mg/dL (7-20) H Creatinine 4.9 mg/dL (0.6-1.0) H Estimated GFR (Cockcroft-Gault) 8.8 BUN/Creatinine Ratio 10 (6-20) Glucose Level 101 mg/dL (70-99) H Calcium Level 8.5 mg/dL (8.5-10.1) Total Bilirubin 0.4 mg/dL (0.2-1.0) Aspartate Amino Transferase (AST) 13 U/L (15-37) L Alanine Aminotransferase (ALT) < 6 U/L (14-59) L Alkaline Phosphatase 67 U/L (46-116) Total Protein 7.7 g/dL (6.4-8.2) Albumin 3.3 g/dL (3.4-5.0) L Albumin/Globulin Ratio 0.8 (1.0-1.7) L Laboratory Tests 08/14/19 18:27 Laboratory Tests 08/14/19 19:30 (OZ FISHMAN APRN) EKG EKG [] (OZ FISHMAN APRN) Radiology/Procedures Radiology/Procedures [] (OZ FISHMAN APRN) Impressions: [facility] [address] [place] [address] IMAGING REPORT Signed PATIENT: ANABELLE COFFMAN ACCOUNT: [id number] : 1950 LOCATION: ER AGE: 69 SEX: F EXAM STATUS: REG ER ORD. PHYSICIAN: OZ FISHMAN APRN REASON: SWELLING PROCEDURE: VENOUS UPPER EXTREMITY LEFT STUDY: VENOUS UPPER EXTREMITY LEFT INDICATION: Upper extremity swelling. TECHNIQUE: Color-flow and pulsed wave duplex ultrasound with compression of venous structures of the left upper extremity. COMPARISON: None Available. FINDINGS: Duplex ultrasound with compression of the deep venous structures of the left upper extremity from the internal jugular vein through the radial and ulnar veins. No deep venous thrombosis identified. An arteriovenous fistula is present and is patent. IMPRESSION: 1. No deep venous thrombosis seen throughout the left upper extremity. 2. Patent arteriovenous fistula. Electronically signed by: ELVIN BRUSH MD (08/14/2019 7:24 PM) [facility] DICTATED and SIGNED BY: ELVIN BRUSH MD DATE: 08/14/191923 (OZ FISHMAN APRN) Course & Med Decision Making Course & Med Decision Making Radial pulses present. Skin is a red color with a 2+ edema in the Left arm. The redness is on lateral upper arm and whole forearm into dorsal hand. Tenderness to the lateral arm from upper arm down through forearm. Patient can make a fist she has no weakness in the extremity. Cap refill less than 3 seconds. Arm is warm to touch. The patient is on Eliquis. She denies shortness of breath, chest pain, pleuritic pain, dizziness, headache, numbness or tingling, weakness, visual changes, dizziness, abdominal pain, nausea or vomiting, diarrhea. Patient denies injury to the arm. Alert and oriented. Speaks in full clear sentences. Ambulatory with a steady gait. PERRLA. Are clear in upper lobes but diminished in lower lobes. Patient was 3 L of oxygen all day everyday. Patient has history of diabetes, COPD, CHF, end-stage renal disease, chronic ulcers to the right heel, she may cardiomyopathy, CAD, elevated troponin, hypertension, high cholesterol, hypothyroidism.[] US shows IMPRESSION: 1. No deep venous thrombosis seen throughout the left upper extremity. 2. Patent arteriovenous fistula. I have consulted with Dr Dowell on this patient and he has examined the patient. Patient likely has cellulitis. Patient will be discharged with oral antibiotics. (OZ FISHMAN APRN) Dragon Disclaimer Dragon Disclaimer This electronic medical record was generated, in whole or in part, using a voice recognition dictation system. (OZ FISHMAN APRN) Departure Departure Impression: Primary Impression: Cellulitis Disposition: HOME, SELF-CARE Condition: STABLE Referrals: Tristan HERNANDEZ MD (PCP) Patient Instructions: Cellulitis, Fywe-gp-Hyoc Additional Instructions: Take medications as prescribed. Follow-up with Dr. Hernandez. Scripts Clindamycin Hcl (CLINDAMYCIN HCL) 300 Mg Capsule 300 MG PO QID for 10 Days, #40 CAP Prov: OZ FISHMAN APRN 08/14/19 Problem Qualifiers Primary Impression: Cellulitis Site of cellulitis: extremity Site of cellulitis of extremity: upper extre mity Laterality: left Qualified Codes: L03.114 - Cellulitis of left upper limb OZ FISHMAN APRN Aug 14, 2019 18:19 DAVID DOWELL MD Aug 15, 2019 17:30
[2019-08-14 18:38] LABS: BASO # 0.1 x10^3/uL (0.0-0.2); BASO % 1 % (0-3); EOS # 0.2 x10^3/uL (0.0-0.7); EOS % 2 % (0-3); HEMATOCRIT 34.8 % (36.0-47.0); HEMOGLOBIN 11.7 g/dL (12.0-15.5); LYMPH # 1.7 x10^3/uL (1.0-4.8); LYMPH % 22 % (24-48); MEAN CORPUSCULAR HEMOGLOBIN 34 pg (25-35); MEAN CORPUSCULAR HGB CONC 34 g/dL (31-37); MEAN CORPUSCULAR VOLUME 103 fL (79-100); MONO # 0.5 x10^3/uL (0.0-1.1); MONO % 7 % (0-9); NEUT # 5.2 x10^3/uL (1.8-7.7); NEUT % 68 % (31-73); PLATELET COUNT 110 x10^3/uL (140-400); RED BLOOD COUNT 3.38 x10^6/uL (3.50-5.40); RED CELL DISTRIBUTION WIDTH 15.5 % (11.5-14.5); WHITE BLOOD COUNT 7.6 x10^3/uL (4.0-11.0)
[2019-08-14 18:47] LABS: PROTHROMBIN TIME PATIENT 14.1 SEC (11.7-14.0)
--- NOTE | 2019-08-14 19:27 | RAD ---
STUDY: VENOUS UPPER EXTREMITY LEFT INDICATION: Upper extremity swelling. TECHNIQUE: Color-flow and pulsed wave duplex ultrasound with compression of venous structures of the left upper extremity. COMPARISON: None Available. FINDINGS: Duplex ultrasound with compression of the deep venous structures of the left upper extremity from the internal jugular vein through the radial and ulnar veins. No deep venous thrombosis identified. An arteriovenous fistula is present and is patent. IMPRESSION: 1. No deep venous thrombosis seen throughout the left upper extremity. 2. Patent arteriovenous fistula. Electronically signed by: ELVIN BRUSH MD (08/14/2019 7:24 PM) [facility]
[2019-08-14 20:09] LABS: ANION GAP 10 (6-14); BLOOD UREA NITROGEN 49 mg/dL (7-20); BUN/CREATININE RATIO 10 (6-20); CALCIUM 8.5 mg/dL (8.5-10.1); CARBON DIOXIDE 29 mmol/L (21-32); CHLORIDE 97 mmol/L (98-107); CREATININE 4.9 mg/dL (0.6-1.0); GFR 8.8; GLUCOSE 101 mg/dL (70-99); SODIUM 136 mmol/L (136-145)
[2019-08-14 20:15] LABS: ALBUMIN 3.3 g/dL (3.4-5.0); ALBUMIN/GLOBULIN RATIO 0.8 (1.0-1.7); ALK PHOS 67 U/L (46-116); AST (SGOT) 13 U/L (15-37); TOTAL BILIRUBIN 0.4 mg/dL (0.2-1.0); TOTAL PROTEIN 7.7 g/dL (6.4-8.2)
[2019-08-14 20:32] LABS: ALT (SGPT) < 6 U/L (14-59)
[2019-08-14] MEDS ORDERED: CEPH-264 PO (21:13)
[2019-08-14] MEDS ORDERED: CLIN300C8 PO ×2 (21:18→21:34)
[2019-08-14 21:32] VITALS: BP 129/59
== END 2019-08-14 21:37 | disposition home or self-care (01) ==
LOC: ER 17:50
DX: L03.114 Cellulitis of left upper limb (principal); I25.10 Atherosclerotic heart disease of native coronary artery without angina pectoris; I50.9 Heart failure, unspecified; E11.22 Type 2 diabetes mellitus with diabetic chronic kidney disease; J44.9 Chronic obstructive pulmonary disease, unspecified; Z95.0 Presence of cardiac pacemaker; Z89.512 Acquired absence of left leg below knee
CPT/HCPCS: 36415; 80053; 85025; 85610; 93971; 99285-25

== ENCOUNTER 2019-08-22 19:08 | Emergency (ER) | payer BC ==
[~2019-08-22] VITALS: Ht 165.1 cm; Wt 89.8 kg
[~2019-08-22 19:08] MED LIST changes: +CEPH-264 PO; +CLIN300C8 PO
[2019-08-22 20:04] LABS: BASO # 0.1 x10^3/uL (0.0-0.2); BASO % 1 % (0-3); EOS # 0.2 x10^3/uL (0.0-0.7); EOS % 2 % (0-3); HEMATOCRIT 34.1 % (36.0-47.0); HEMOGLOBIN 11.2 g/dL (12.0-15.5); LYMPH # 1.3 x10^3/uL (1.0-4.8); LYMPH % 12 % (24-48); MEAN CORPUSCULAR HEMOGLOBIN 34 pg (25-35); MEAN CORPUSCULAR HGB CONC 33 g/dL (31-37); MEAN CORPUSCULAR VOLUME 102 fL (79-100); MONO # 0.6 x10^3/uL (0.0-1.1); MONO % 6 % (0-9); NEUT # 8.9 x10^3/uL (1.8-7.7); NEUT % 80 % (31-73); PLATELET COUNT 102 x10^3/uL (140-400); RED BLOOD COUNT 3.33 x10^6/uL (3.50-5.40); WHITE BLOOD COUNT 11.1 x10^3/uL (4.0-11.0)
[2019-08-22 20:19] LABS: CALCIUM 8.3 mg/dL (8.5-10.1); CREATININE 4.8 mg/dL (0.6-1.0)
--- NOTE | 2019-08-22 20:21 | PHYS DOC ---
Past Medical History Past Medical History: CAD, CHF, COPD, Diabetes-Type II, Renal Failure, Vascular Disease Additional Past Medical Histor: CARDIAC ARREST Past Surgical History: Angioplasty, Cholecystectomy, , Pacemaker, Tubal ligation Additional Past Surgical Histo: AICD,VASCULAR STENTS CARDIAC STENTS,CADAVER ARTERY,LEFT BKA Smoking: Cigarettes Alcohol Use: None Drug Use: None Adult General Chief Complaint Chief Complaint: UPPER EXTREMITY SWELLING HPI HPI Patient is a 69 y/o female with a history of CAD, COPD, CHF, DM type II, AV fistula, renal failure, and dialysis who presents with worsening pain and swelling of her left upper extremity. Pt was seen in the ED 1 week ago for similar symptoms and was discharged with Clindamycin. She states that since then the pain has been worsening. She states the pain is the worst at her elbow to her shoulder rather than distally. Pain is described as sharp and rated at a 6/10. Review of Systems Review of Systems Constitutional: Denies fever or chills Eyes: Denies redness or eye pain HENT: Denies nasal congestion or sore throat Respiratory: Denies cough or shortness of breath Cardiovascular: Denies chest pain or palpitations GI: Denies abdominal pain, nausea, or vomiting : Denies dysuria or hematuria Musculoskeletal: Left UE pain Integument: Swelling and pain in LUE; mild increased warmth and erythema Neurologic: Denies headache, focal weakness or sensory changes Complete systems were reviewed and found to be within normal limits, except as documented in this note. Current Medications Current Medications Current Medications Medications (Trade) Dose Ordered Sig/Slick Start Time Stop Time Status Last Admin Dose Admin Acetaminophen/ Hydrocodone Bitart (Lortab 5/325) 1 tab 1X ONCE 08/22/19 22:45 08/22/19 22:46 DC 08/22/19 22:44 1 TAB Allergies Allergies Allergies Coded Allergies Type Severity Reaction Last Updated Verified No Known Medication Allergies Allergy Unknown 07/23/18 Yes Physical Exam Physical Exam Constitutional: Well developed, well nourished, no acute distress, non-toxic appearance HENT: Normocephalic, atraumatic, oropharynx moist Neck: Normal range of motion, no tenderness, supple Cardiovascular: Heart rate normal, regular rhythm Lungs & Thorax: Expiratory wheezes with rhonchi Abdomen: Soft, no tenderness Skin: mild erythea and swelling on left UE in comparison to right Back: No tenderness, no CVA tenderness Extremities: left upper extremity with mild erythema, swelling and tenderness to palpation. AV fistula in place, 1+ radial pulse on LUE, 2+ pulse on RUE Neurologic: Alert and oriented X 3, normal motor function, normal sensory function, no focal deficits noted Psychologic: Affect normal, judgement normal Current Patient Data Vital Signs Vital Signs Date Time Temp Pulse Resp B/P (MAP) Pulse Ox O2 Delivery O2 Flow Rate FiO2 08/22/19 22:44 16 99 Room Air 08/22/19 22:00 74 124/59 (80) 3.0 08/22/19 19:11 98.1 98.1 Lab Values Laboratory Tests Test 08/22/19 19:35 White Blood Count 11.1 x10^3/uL (4.0-11.0) H Red Blood Count 3.33 x10^6/uL (3.50-5.40) L Hemoglobin 11.2 g/dL (12.0-15.5) L Hematocrit 34.1 % (36.0-47.0) L Mean Corpuscular Volume 102 fL (79-100) H Mean Corpuscular Hemoglobin 34 pg (25-35) Mean Corpuscular Hemoglobin Concent 33 g/dL (31-37) Red Cell Distribution Width 15.0 % (11.5-14.5) H Platelet Count 102 x10^3/uL (140-400) L Neutrophils (%) (Auto) 80 % (31-73) H Lymphocytes (%) (Auto) 12 % (24-48) L Monocytes (%) (Auto) 6 % (0-9) Eosinophils (%) (Auto) 2 % (0-3) Basophils (%) (Auto) 1 % (0-3) Neutrophils # (Auto) 8.9 x10^3/uL (1.8-7.7) H Lymphocytes # (Auto) 1.3 x10^3/uL (1.0-4.8) Monocytes # (Auto) 0.6 x10^3/uL (0.0-1.1) Eosinophils # (Auto) 0.2 x10^3/uL (0.0-0.7) Basophils # (Auto) 0.1 x10^3/uL (0.0-0.2) Sodium Level 138 mmol/L (136-145) Potassium Level 3.9 mmol/L (3.5-5.1) Chloride Level 97 mmol/L (98-107) L Carbon Dioxide Level 31 mmol/L (21-32) Anion Gap 10 (6-14) Blood Urea Nitrogen 40 mg/dL (7-20) H Creatinine 4.8 mg/dL (0.6-1.0) H Estimated GFR (Cockcroft-Gault) 9.0 BUN/Creatinine Ratio 8 (6-20) Glucose Level 125 mg/dL (70-99) H Lactic Acid Level 1.9 mmol/L (0.4-2.0) Calcium Level 8.3 mg/dL (8.5-10.1) L Magnesium Level 2.1 mg/dL (1.8-2.4) Total Bilirubin 0.4 mg/dL (0.2-1.0) Aspartate Amino Transferase (AST) 23 U/L (15-37) Alanine Aminotransferase (ALT) 10 U/L (14-59) L Alkaline Phosphatase 78 U/L (46-116) Total Protein 8.0 g/dL (6.4-8.2) Albumin 3.4 g/dL (3.4-5.0) Albumin/Globulin Ratio 0.7 (1.0-1.7) L Laboratory Tests 08/22/19 19:35 Laboratory Tests 08/22/19 19:35 EKG EKG [] Radiology/Procedures Radiology/Procedures PROCEDURE: VENOUS UPPER EXTREMITY LEFT Exam: Left upper extremity venous duplex study INDICATION: Swelling TECHNIQUE: Using a combination of real-time ultrasound imaging and color-flow and pulse Doppler imaging techniques along with graded compression and augmentation, duplex evaluation of the deep venous systems of left upper extremity was performed. Multiple images were obtained. Findings: There is no sonographic evidence for deep venous thrombosis involving the visualized deep venous structures of the left upper extremity. AV fistula in the left upper extremity is patent. IMPRESSION: 1. No acute DVT in the left upper extremity. 2. Patent AV fistula Electronically signed by: Amanda Castillo MD (08/22/2019 9:20 PM) [facility] Course & Med Decision Making Course & Med Decision Making Pt is a 69 y/o female with a history of CAD, COPD, CHF, DM, renal failure and dialysis who presents to the ED with worsening left UE pain and swelling. She was seen previously in the ED 1 week ago w/ a similar presentation and discharged with antibiotics. Since then pt states symptoms have not improved and have worsened. Left UE venous duplex shows no acute DVT in the left upper extremity and patent AV fistula. Offered admission for further evaluation. Patient still has a few days of antibiotics to take. Patient reports she would like to be discharged home with close follow-up. Discussed with pt for f/u and symptomatic control. Patient stable for discharge with outpatient follow-up with Access center and career information specialist. Discussed findings and plan with patient who acknowledge understanding and agreement. Dragon Disclaimer Dragon Disclaimer This electronic medical record was generated, in whole or in part, using a voice recognition dictation system. Departure Departure Impression: Primary Impression: Left arm swelling Additional Impression: Left arm pain Disposition: 01 HOME, SELF-CARE Condition: STABLE Referrals: Tristan PENG MD (PCP) KAYLAH ROSADO MD Patient Instructions: Peripheral Edema Additional Instructions: Please follow closely with your kidney doctor and your access center Scripts Hydrocodone/Apap 5-325 (NORCO 5-325 TABLET) 1 Each Tablet 0.5-1 TAB PO PRN Q6HRS PRN for PAIN, #10 TAB 0 Refills Prov: MACHO FLORES DO 08/22/19 Problem Qualifiers MACHO FLORES DO Aug 22, 2019 20:21
[2019-08-22 20:25] LABS: ALBUMIN 3.4 g/dL (3.4-5.0); ALBUMIN/GLOBULIN RATIO 0.7 (1.0-1.7); MAGNESIUM 2.1 mg/dL (1.8-2.4); TOTAL BILIRUBIN 0.4 mg/dL (0.2-1.0)
[2019-08-22 20:36] LABS: POTASSIUM 3.9 mmol/L (3.5-5.1)
--- NOTE | 2019-08-22 21:23 | RAD ---
Exam: Left upper extremity venous duplex study INDICATION: Swelling TECHNIQUE: Using a combination of real-time ultrasound imaging and color-flow and pulse Doppler imaging techniques along with graded compression and augmentation, duplex evaluation of the deep venous systems of left upper extremity was performed. Multiple images were obtained. Findings: There is no sonographic evidence for deep venous thrombosis involving the visualized deep venous structures of the left upper extremity. AV fistula in the left upper extremity is patent. IMPRESSION: 1. No acute DVT in the left upper extremity. 2. Patent AV fistula Electronically signed by: Amanda Castillo MD (08/22/2019 9:20 PM) [facility]
[2019-08-22 22:00] VITALS: BP 124/59
[2019-08-22] MEDS ORDERED: HYDR-3164 PO (22:27)
[2019-08-22] MEDS ORDERED: HYDROcodone/APAP 5/325MG 1 TAB TABLET PO ONE (22:45)
== END 2019-08-22 23:00 | disposition home or self-care (01) ==
LOC: ER 19:08
DX: M79.602 Pain in left arm (principal); R22.32 Localized swelling, mass and lump, left upper limb; E11.22 Type 2 diabetes mellitus with diabetic chronic kidney disease; N18.9 Chronic kidney disease, unspecified; I25.10 Atherosclerotic heart disease of native coronary artery without angina pectoris; I50.9 Heart failure, unspecified; J44.9 Chronic obstructive pulmonary disease, unspecified; F17.210 Nicotine dependence, cigarettes, uncomplicated; Z95.0 Presence of cardiac pacemaker; Z98.61 Coronary angioplasty status; Z99.2 Dependence on renal dialysis
CPT/HCPCS: 36415; 80053; 83605; 83735; 85025; 87040; 93971; 99285

== ENCOUNTER 2019-09-22 06:50 | Outpatient (CLI) | payer BC ==
[~2019-09-22] VITALS: Ht 163.8 cm; Wt 90.7 kg
[~2019-09-22 06:50] MED LIST changes: +HYDR-3164 PO
[2019-09-22 07:35] LABS: BASO # 0.1 x10^3/uL (0.0-0.2); BASO % 1 % (0-3); EOS # 0.1 x10^3/uL (0.0-0.7); EOS % 1 % (0-3); HEMATOCRIT 33.8 % (36.0-47.0); LYMPH # 1.1 x10^3/uL (1.0-4.8); LYMPH % 13 % (24-48); MEAN CORPUSCULAR HEMOGLOBIN 33 pg (25-35); MEAN CORPUSCULAR HGB CONC 33 g/dL (31-37); MEAN CORPUSCULAR VOLUME 103 fL (79-100); MONO # 0.6 x10^3/uL (0.0-1.1); MONO % 7 % (0-9); NEUT # 6.5 x10^3/uL (1.8-7.7); NEUT % 78 % (31-73); PLATELET COUNT 161 x10^3/uL (140-400); RED BLOOD COUNT 3.29 x10^6/uL (3.50-5.40); RED CELL DISTRIBUTION WIDTH 14.5 % (11.5-14.5); WHITE BLOOD COUNT 8.4 x10^3/uL (4.0-11.0)
[2019-09-22 07:46] LABS: CALCIUM 8.2 mg/dL (8.5-10.1); CREATININE 5.9 mg/dL (0.6-1.0); GFR 7.1; POTASSIUM 3.5 mmol/L (3.5-5.1)
[2019-09-22 07:47] LABS: PROTHROMBIN TIME PATIENT 13.9 SEC (11.7-14.0)
[2019-09-22 08:03] VITALS: BP 102/47
--- NOTE | 2019-09-22 09:26 | NUR ---
Per Dr Bray, no procedure today. Working with consulting MDs to establish a plan. Pt aware of situation, v/u. IV site dcd intact, awaiting family to order picker. CLIFTON JULIAN
== END 2019-09-22 09:45 | disposition home or self-care (01) ==
LOC: INTRAD 06:50
PROVIDERS: ATTEND Registered Nurse Medical-Surgical
DX: N18.6 End stage renal disease (principal); Z53.9 Procedure and treatment not carried out, unspecified reason
CPT/HCPCS: 36415; 80048; 85025; 85610